=== PATIENT | male | born 1945 | race Caucasian/White ===

== ENCOUNTER 2016-12-04 18:34 | Emergency (ER) | payer MEDICARE ==
[2016-12-04 19:44] LABS: #Basophils 0.1 thou/uL (0.0-0.2); #Eosinphils 0.2 thou/uL (0.0-0.7); #Lymphocytes 1.7 thou/uL (1.20-3.40); #Monocytes 1.2 thou/uL (0.11-0.59); #Neutrophils 13.1 thou/uL (1.40-6.50); %Basophils 0.7 % (0.0-1.0); %Eosinophils 1.4 % (0.0-10.0); %Lymphocytes 10.6 % (21.0-51.0); %Monocytes 7.1 % (0.0-10.0); Hematocrit 45.1 % (42.0-52.0); Mean Platelet Volume 8.5 fL (7.4-10.4); Red Blood Cell (RBC) Count 4.96 mill/uL (4.70-6.10); White Blood Cell (WBC) Count 16.4 thou/uL (4.8-10.8)
[2016-12-04 19:50] LABS: PTT 33.6 SEC (22.9-36.1); Prothrombin Time 21.1 SEC (12.0-14.7)
[2016-12-04] MEDS ORDERED: Ondansetron HCl/PF 4 MG/2 ML Vial ONE (19:55)
[2016-12-04 20:03] LABS: ALT (SGPT) 12 U/L (8-55); AST (SGOT) 16 U/L (5-34); Alkaline Phosphatase 114 U/L (40-150); Anion Gap 16 mmol/L (10-20); BUN (Urea Nitrogen) 28 mg/dL (8.4-25.7); Bilirubin, Total 0.7 mg/dL (0.2-1.2); CK (CPK) 71 U/L (30-200); Calc. Creatinine Clearance 0 mL/min (70-130); Calcium 10.2 mg/dL (7.8-10.44); Carbon Dioxide 23 mmol/L (23-31); Chloride 103 mmol/L (98-107); Estimated GFR-MDRD 73; Globulin 3.3 g/dL (2.4-3.5); Lipase 19 U/L (8-78); Protein, Total 7.9 g/dL (5.8-8.1)
[2016-12-04] MEDS ORDERED: Fentanyl 100 MCG/2 ML VIAL ONE (20:26)
--- NOTE | 2016-12-04 22:53 | RAD ---
EXAM: LEFT RIBS THREE VIEWS ONE VIEW CHEST 12/04/16 HISTORY: Patient fell. Left rib pain. COMPARISON: Chest radiograph 09/04/16. FINDINGS: One view chest: Atherosclerosis of the aorta. Normal cardiac silhouette. Pulmonary vessels and hilum are normal. Cos tophrenic angles are clear. Chronic changes are noted. No masses or consolidation. No pneumothorax. LEFT RIBS: There appear to be indeterminate fractures involving the posterior left third and fifth ribs. There does appear to be an acute fracture involving the anterior and lateral left 10th rib. Pneumothorax i s not appreciated. There is evidence of previous vertebroplasty change in the distal thoracic spine. IMPRESSION: 1. No acute cardiopulmonary process. 2. Indeterminate posterior left third and fifth rib fractures. Acute anterolateral left 10th ri b fracture. POS: [facility]
== END 2016-12-04 22:25 | disposition home or self-care (01) ==
LOC: ERS 18:34
DX: S22.42XA Multiple fractures of ribs, left side, initial encounter for closed fracture (principal); E11.9 Type 2 diabetes mellitus without complications; I49.9 Cardiac arrhythmia, unspecified; I48.91 Unspecified atrial fibrillation; I10 Essential (primary) hypertension; J44.9 Chronic obstructive pulmonary disease, unspecified; F17.210 Nicotine dependence, cigarettes, uncomplicated; Z79.82 Long term (current) use of aspirin; Z79.84 Long term (current) use of oral hypoglycemic drugs; Z79.01 Long term (current) use of anticoagulants; Z79.899 Other long term (current) drug therapy; W19.XXXA Unspecified fall, initial encounter
CPT/HCPCS: 36415; 80053; 82550; 82553; 83690; 83880; 84484; 85025; 85610; 85730; 93005; 94640; 94760; 96374; J2270; J2405; J3010; J7620

== ENCOUNTER 2017-01-23 16:18 | Emergency (ER) | payer MEDICARE ==
[2017-01-23] MEDS ORDERED: Adacel (T-DAP) 0.5 ML VIAL ONE (16:33)
[2017-01-23] MEDS ORDERED: Lidocaine 1% w/Epinephrine 1:200K 30 ML VIAL ONE (16:42)
[2017-01-23 16:59] LABS: #Basophils 0.1 thou/uL (0.0-0.2); #Eosinphils 0.2 thou/uL (0.0-0.7); #Lymphocytes 1.9 thou/uL (1.20-3.40); #Monocytes 0.8 thou/uL (0.11-0.59); #Neutrophils 6.9 thou/uL (1.40-6.50); %Basophils 1.1 % (0.0-1.0); %Eosinophils 2.5 % (0.0-10.0); %Lymphocytes 19.1 % (21.0-51.0); %Monocytes 8.2 % (0.0-10.0); Hematocrit 39.9 % (42.0-52.0); Mean Platelet Volume 7.8 fL (7.4-10.4); Red Blood Cell (RBC) Count 4.31 mill/uL (4.70-6.10)
[2017-01-23 17:06] LABS: PTT 44.7 SEC (22.9-36.1); Prothrombin Time 49.3 SEC (12.0-14.7)
[2017-01-23] MEDS ORDERED: Phytonadione 10 MG/ML AMP PO SCH (17:45)
== END 2017-01-23 18:49 | disposition home or self-care (01) ==
LOC: ERS 16:18
DX: S61.412A Laceration without foreign body of left hand, initial encounter (principal); L08.9 Local infection of the skin and subcutaneous tissue, unspecified; R79.1 Abnormal coagulation profile; I48.91 Unspecified atrial fibrillation; I10 Essential (primary) hypertension; E11.9 Type 2 diabetes mellitus without complications; J44.9 Chronic obstructive pulmonary disease, unspecified; F17.210 Nicotine dependence, cigarettes, uncomplicated; Z79.01 Long term (current) use of anticoagulants; W26.0XXA Contact with knife, initial encounter
CPT/HCPCS: 36415; 85025; 85610; 85730; 90715; J3430

== ENCOUNTER 2017-01-24 12:03 | Inpatient (IN) | payer MEDICARE ==
[2017-01-24] MEDS ORDERED: Ondansetron HCl/PF 4 MG/2 ML Vial ONE (13:07)
[2017-01-24] MEDS ORDERED: Morphine 4 MG/ML VIAL ONE (13:07)
[2017-01-24 13:32] LABS: #Basophils 0.1 thou/uL (0.0-0.2); #Eosinphils 0.2 thou/uL (0.0-0.7); #Lymphocytes 1.8 thou/uL (1.20-3.40); #Neutrophils 11.2 thou/uL (1.40-6.50); %Basophils 0.7 % (0.0-1.0); %Eosinophils 1.5 % (0.0-10.0); %Lymphocytes 12.8 % (21.0-51.0); %Monocytes 7.2 % (0.0-10.0); Hematocrit 44.5 % (42.0-52.0); Mean Platelet Volume 8.3 fL (7.4-10.4); Red Blood Cell (RBC) Count 4.82 mill/uL (4.70-6.10); White Blood Cell (WBC) Count 14.4 thou/uL (4.8-10.8)
[2017-01-24 13:40] LABS: PTT 37.4 SEC (22.9-36.1)
[2017-01-24 13:42] LABS: Prothrombin Time 26.1 SEC (12.0-14.7)
[2017-01-24 13:52] LABS: Lactic Acid - Sepsis 1.7 mmol/L (0.5-2.2)
[2017-01-24 13:54] LABS: ALT (SGPT) 21 U/L (8-55); AST (SGOT) 40 U/L (5-34); Alkaline Phosphatase 100 U/L (40-150); Anion Gap 14 mmol/L (10-20); BUN (Urea Nitrogen) 12 mg/dL (8.4-25.7); Bilirubin, Total 1.2 mg/dL (0.2-1.2); Calc. Creatinine Clearance 0 mL/min (70-130); Calcium 9.8 mg/dL (7.8-10.44); Carbon Dioxide 20 mmol/L (23-31); Chloride 104 mmol/L (98-107); Estimated GFR-MDRD Greater than 90; Globulin 3.1 g/dL (2.4-3.5); Protein, Total 7.4 g/dL (5.8-8.1)
[2017-01-24] MEDS ORDERED: Ketorolac Tromethamine 30 MG/ML VIAL ONE (14:18)
--- NOTE | 2017-01-24 15:36 | HP ---
PRIMARY CARE PHYSICIAN: [facility] call admission. REASON FOR ADMISSION: Left hand cellulitis. HISTORY OF PRESENT ILLNESS: A 71-year-old male who has underlying history of COPD, hypertension, atr ial fibrillation, who came to the emergency room for increasing swelling of left hand. Patient repor ts that on last Wednesday, he had laceration of his left hand from knife that occurred when he was openi ng a can of cone. Subsequently, he was having nonstop bleeding and that is why he came to the emerge ncy room for evaluation and patient was found with a supratherapeutic INR. At that time, his left ahuja nd was completely unremarkable. In the emergency room, patient was given vitamin K and tetanus toxoi d, and patient's laceration was covered with bandage and splint and patient was discharged home on or al antibiotic therapy and pain medication. The patient reports that since then, the patient has incr easing left hand swelling and it is giving throbbing pain. He denies any fever or chills, but he has significant amount of pain and that is why he decided to come to the emergency room for evaluation. The patient also noticed that his left hand swelling is getting more and more worse and now is becom ing more red. He denies any drainage. He denies any bleeding. He denies any fever, chills, nausea, vomiting or diarrhea. He denies any UTI symptoms. He denies any constipation or diarrhea. He brooke es any shortness of breath, cough or hemoptysis. ALLERGIES: No known drug allergies. CURRENT HOME MEDICATIONS: The patient does not have any medication with him at this point, but based on our previous discharge summary, the patient was on following medications: Albuterol inhaler as n eeded basis, aspirin 81 mg p.o. daily, Lipitor 20 mg p.o. at bedtime, Symbicort 2 puff inhalation b.i .d., Glucotrol 5 mg p.o. daily, lisinopril 25 mg p.o. daily, metformin 500 mg p.o. b.i.d., metoprolol 50 mg p.o. b.i.d., multivitamin 1 capsule p.o. daily. Above-mentioned medication is not able to be verified because patient does not have any medication with him. REVIEW OF SYSTEMS: The following complete review of systems was negative, unless otherwise mentioned in the HPI or below: CONSTITUTIONAL: Weight loss or gain, ability to conduct usual activities. SKIN: Rash, itching. EYES: Double vision, pain. ENT/MOUTH: Nose bleeding, neck stiffness, pain, tenderness. CARDIOVASCULAR: Palpitations, dyspnea on exertion, orthopnea. RESPIRATORY: Shortness of breath, wheezing, cough, hemoptysis, fever or night sweats. GASTROINTESTINAL: Poor appetite, abdominal pain, heartburn, nausea, vomiting, constipation, or diarr hea. GENITOURINARY: Urgency, frequency, dysuria, nocturia. MUSCULOSKELETAL: Pain, swelling. NEUROLOGIC/PSYCHIATRIC: Anxiety, depression. ALLERGY/IMMUNOLOGIC: Skin rash, bleeding tendency. Please see my HPI for pertinent positives and negatives. All other review of systems reviewed and ne gative except as mentioned in the HPI. PAST MEDICAL HISTORY: Paroxysmal atrial fibrillation, diabetes type 2, COPD, hypertension, tobacco a buse disorder, coronary artery disease. PAST SURGICAL HISTORY: Left leg surgery for fracture, cardiac catheterization with stent placement i n 1997. PAST PSYCHIATRIC HISTORY: Reviewed and negative. SOCIAL HISTORY: Patient is smoking about 1 pack per day for the last 30 years. He lives alone. He denies any alcohol abuse. He denies any other illicit drug abuse. FAMILY HISTORY: No strong family history of premature coronary artery disease, stroke or cancer. EMERGENCY ROOM COURSE: Patient is given vancomycin, IV fluid, Zofran 4 mg, morphine 4 mg. PHYSICAL EXAMINATION: VITAL SIGNS: On arrival, blood pressure 175/84, pulse 113, respiratory rate 20, temperature 97.5, sa turation 94% on room air. Weight 77 kilograms. GENERAL: Patient is currently alert, awake, tachycardic, hypertensive, in mild distress due to pain. HEAD: Normocephalic, atraumatic. EYES: Pupils round, reactive to light. Extraocular muscle intact. ENT: Oropharynx within normal limits. Moist mucous membranes. No oral lesions. No pharyngeal eryt jim, no exudate. NECK: Supple, no JVD, no thyromegaly, no carotid bruit, no meningeal signs of irritation. LUNGS: No end-expiratory wheezing, no rhonchi, no rales. No accessory muscles of respiration in use . Pursed lip breathing noted. CARDIAC: S1, S2 regular, tachycardia, no murmur, no gallop, no rub. ABDOMEN: Soft, bowel sounds present, nontender, nondistended. No organomegaly, no mass, no suprapub ic tenderness. BACK: Unremarkable, no CVA tenderness. EXTREMITIES: Upper extremity: Left hand is swollen, erythematous, and significantly tender. Patien t has puncture wound in thenar eminence. Patient also has swelling of the distal half of the forearm and tenderness to palpation. Range of motion is limited because of tenderness. Pulsation and capil yojana filling is normal. Lower extremity, no edema. Good peripheral pulsation. SKIN: No skin rash. HEMATOLOGICAL: No lymphadenopathy. PSYCHIATRIC: Normal affect. SIGNIFICANT LABS: 1. CBC: WBC 14.4, hemoglobin 15.0 and platelets 171. INR 2.3. BMP: Sodium 134, potassium 4.0, ch loride 104, carbon dioxide 20, BUN 12, creatinine 0.77, glucose 91, calcium 9.8. 2. LFT: AST 40, ALT 21, alkaline phosphatase 100, CRP less than 0.50, albumin 4.3. ASSESSMENT AND PLAN/IMPRESSION: 1. Acute left hand cellulitis after knife injury. The patient is already given tetanus toxoid a cou ple of days ago in the emergency room. At this point, the patient has leukocytosis and a significant inflammatory response. Clinically, this patient has cellulitis. Patient is getting worse even with outpatient treatment and patient will require admission. We will consult hand surgeon for evaluatio n. We will do hand x-ray to rule out any foreign body. We will continue with vancomycin and Zosyn w hile in hospital and control his pain with morphine p.r.n. basis and Toradol p.r.n. basis. We will m onitor clinical response. 2. Diabetes type 2. We will continue with insulin as per sliding scale protocol. Diabetic diet vera l be given. We will also continue patient's home medication of glipizide and metformin after verific ation of dose. 3. Chronic obstructive pulmonary disease. We will continue with Dulera 2 puffs inhalation b.i.d. al nancy with DuoNeb q.6 hourly p.r.n. 4. Tobacco abuse disorder. Smoking cessation counseling given. We will provide nicotine patch whil e in hospital if needed. 5. Hypertension. We will continue with lisinopril 10 mg p.o. daily and metoprolol 25 mg twice daily . 6. Dyslipidemia. We will continue with Lipitor 20 mg p.o. at bedtime after a dose verification. 7. Deep venous thrombosis prophylaxis, not needed because the patient is already on chronic anticoag ulation therapy. 8. Chronic anticoagulation. The patient has supratherapeutic INR a couple of days ago. Now, INR is 2.3. We will verify the patient's medication and then resume therapy while in hospital and we will monitor INR on daily basis. 9. Gastrointestinal prophylaxis, Pepcid 20 mg p.o. b.i.d. 10. CODE STATUS: The patient is FULL CODE. Patient does not have any surrogate decision maker. Disposition plan based on clinical course. We are expecting patient's stay in hospital more than 2 m idnights. Plan of care discussed with the patient in detail.
[2017-01-24] MEDS ORDERED: Diabetic Tussin 200 MG/10 ML UDCUP PO PRN (16:40)
[2017-01-24] MEDS ORDERED: cloNIDine 0.1 MG TAB PO PRN (16:40)
[2017-01-24] MEDS ORDERED: Nitroglycerin 0.4 MG TAB (25 Tab Bottle) SL PRN (16:40)
[2017-01-24] MEDS ORDERED: Morphine 4 MG/ML VIAL SLOW IVP PRN (16:40)
[2017-01-24] MEDS ORDERED: Mag-Al 1200 mg/1200 mg/30 ML UDCUP PO PRN (16:40)
[2017-01-24] MEDS ORDERED: Ketorolac Tromethamine 30 MG/ML VIAL IVP PRN (16:40)
[2017-01-24] MEDS ORDERED: Acetaminophen 325 MG TAB PO PRN (16:40)
[2017-01-24] MEDS ORDERED: Dextrose 50% Abboject 50 ML SYRINGE SLOW IVP PRN (16:40)
[2017-01-24] MEDS ORDERED: Loratadine 10 MG TAB PO PRN (16:40)
[2017-01-24] MEDS ORDERED: Ondansetron HCl/PF 4 MG/2 ML Vial IVP PRN (16:40)
[2017-01-24] MEDS ORDERED: Zolpidem Tartrate 5 MG TAB PO PRN (16:40)
[2017-01-24] MEDS ORDERED: HumaLOG 300 UNITS/3 ML VIAL SC PRN (16:40)
[2017-01-24] MEDS ORDERED: Milk Of Magnesia 30 ML UDCUP PO PRN (16:40)
[2017-01-24] MEDS ORDERED: Chloraseptic Spray 180 ml Bottle PO PRN (16:40)
[2017-01-24] MEDS ORDERED: Eucerin (Mineral Oil/Petrolatum,White) 30 gm Jar TOP PRN (16:40)
[2017-01-24] MEDS ORDERED: Ondansetron ODT 4 MG TAB PO PRN (16:40)
[2017-01-24] MEDS ORDERED: Loperamide HCl 2 MG CAP PO PRN (16:40)
[2017-01-24] MEDS ORDERED: hydrALAZINE 20 MG/ML VIAL SLOW IVP PRN (16:40)
[2017-01-24] MEDS ORDERED: Sodium Chloride 0.65% Nasal 44 ML BOT EA NARE PRN (16:40)
[2017-01-24] MEDS ORDERED: Artificial Tears 18 DROP/0.9 ML EA EYE PRN (16:40)
[2017-01-24] MEDS ORDERED: Benzonatate 100 MG CAP PO PRN (16:40)
[2017-01-24] MEDS ORDERED: Dextrose 5% in Water 1,000 ML IV PRN (16:40)
[2017-01-24] MEDS ORDERED: Senokot 8.6 MG TAB PO PRN (16:40)
[2017-01-24 16:42] VITALS: BMI 25.8
[2017-01-24] MEDS: HYDROcodone/Acetaminophen 10/325 mg Tablet PO PRN ×2 (17:00→21:01)
--- NOTE | 2017-01-24 17:14 | RAD ---
LEFT HAND 3 VIEWS: Date: 01/24/17 HISTORY: Left hand cellulitis. COMPARISON: None. FINDINGS: There is subcutaneous gas in the thenar soft tissues between the thumb and index finger. No acute fra cture. No periostitis or erosions. IMPRESSION: Soft tissue gas concerning for high grade infectious process. Although there are no radiographic find ings of osteomyelitis yet seen, MRI may be helpful in this patient. POS: [facility]
[2017-01-24] MEDS ORDERED: FLU VACC TS2017-18 (>65YR) 0.5 ML SYRINGE IM ONE (17:15)
[2017-01-24] MEDS: Piperacillin/Tazobactam 3.375 GM, Admixture Fee 1 EACH in Sodium Chloride 0.9% 100 ML IVPB SCH ×2 (18:20→23:16)
[2017-01-24] MEDS: Mometasone/Formoterol 120 PUFF INHALER INH SCH (18:59)
[2017-01-24] MEDS: Famotidine 20 MG TAB PO SCH (21:02)
[2017-01-24] MEDS: Atorvastatin Calcium 20 MG TAB PO SCH (21:02)
[2017-01-24] MEDS: Metoprolol Tartrate 25 MG TAB PO SCH (21:02)
[2017-01-25] MEDS: Vancomycin HCl 1 GM in Premix Bag 1 BAG IVPB SCH ×2 (01:55→14:17)
[2017-01-25] MEDS: HYDROcodone/Acetaminophen 10/325 mg Tablet PO PRN ×3 (02:00→20:34)
[2017-01-25 04:28] LABS: #Basophils 0.1 thou/uL (0.0-0.2); #Eosinphils 0.2 thou/uL (0.0-0.7); #Lymphocytes 1.9 thou/uL (1.20-3.40); #Monocytes 0.9 thou/uL (0.11-0.59); #Neutrophils 7.3 thou/uL (1.40-6.50); %Basophils 0.9 % (0.0-1.0); %Eosinophils 2.1 % (0.0-10.0); %Lymphocytes 18.5 % (21.0-51.0); %Monocytes 8.3 % (0.0-10.0); Hematocrit 36.4 % (42.0-52.0); Red Blood Cell (RBC) Count 3.88 mill/uL (4.70-6.10); White Blood Cell (WBC) Count 10.3 thou/uL (4.8-10.8)
[2017-01-25 04:46] LABS: ALT (SGPT) 15 U/L (8-55); AST (SGOT) 27 U/L (5-34); Alkaline Phosphatase 73 U/L (40-150); Anion Gap 10 mmol/L (10-20); BUN (Urea Nitrogen) 15 mg/dL (8.4-25.7); Calc. Creatinine Clearance 75 mL/min (70-130); Calcium 8.8 mg/dL (7.8-10.44); Carbon Dioxide 25 mmol/L (23-31); Chloride 104 mmol/L (98-107); Estimated GFR-MDRD 78; Globulin 2.2 g/dL (2.4-3.5); Protein, Total 5.7 g/dL (5.8-8.1)
[2017-01-25] MEDS: Piperacillin/Tazobactam 3.375 GM, Admixture Fee 1 EACH in Sodium Chloride 0.9% 100 ML IVPB SCH ×3 (05:16→17:51)
[2017-01-25] MEDS: Mometasone/Formoterol 120 PUFF INHALER INH SCH ×2 (06:35→19:28)
[2017-01-25] MEDS: Lisinopril 10 MG TAB PO SCH (08:32)
[2017-01-25] MEDS: Famotidine 20 MG TAB PO SCH ×2 (08:33→20:34)
[2017-01-25] MEDS: Metoprolol Tartrate 25 MG TAB PO SCH ×2 (08:33→20:34)
--- NOTE | 2017-01-25 10:34 | PDOC.PN ---
- Subjective Encounter Start Date: 01/25/17 Encounter Start Time: 09:45 -: old records requested/rev Patient seen and examined. No new complaints. No overnight events, has left hand and left UE pain, no fever - Objective Resuscitation Status: Resuscitation Status FULL:Full Resuscitation MAR Reviewed: Yes Vital Signs & Weight: Vital Signs (12 hours) Temp Pulse Resp BP BP Pulse Ox 01/25/17 08:55 97.5 F L 83 20 129/80 90 L 01/25/17 08:32 129/80 01/25/17 06:38 94 L 01/25/17 06:36 66 16 94 L 01/25/17 05:24 97.6 F 73 20 139/76 94 L 01/25/17 00:00 98.1 F 01/24/17 23:32 71 16 93 L I&O: 01/24/17 01/25/17 01/26/17 06:59 06:59 06:59 Intake Total 100 180 Balance 100 180 Result Diagrams: 01/25/17 03:49 01/25/17 03:49 Additional Labs: Accuchecks 01/25/17 01/24/17 05:18 16:37 POC Glucose 137 H 105 Radiology Reviewed by me: Yes (Xray hand noted) Phys Exam - Physical Examination Constitutional: NAD HEENT: PERRLA, moist MMs, sclera anicteric Neck: no JVD, supple Respiratory: no rales, wheezing present Cardiovascular: RRR, no significant murmur, no rub Gastrointestinal: soft, non-tender, no distention, positive bowel sounds Musculoskeletal: no edema, pulses present left UE swelling , more on hand Neurological: non-focal, normal sensation Lymphatic: no nodes Psychiatric: normal affect, A&O x 3 Skin: no rash, normal turgor Dx/Plan (1) Cellulitis of hand, left Code(s): L03.114 - CELLULITIS OF LEFT UPPER LIMB Status: Acute (2) Sepsis Code(s): A41.9 - SEPSIS, UNSPECIFIED ORGANISM Status: Acute (3) Atrial fibrillation Code(s): I48.91 - UNSPECIFIED ATRIAL FIBRILLATION Status: Chronic Qualifiers: Atrial fibrillation type: paroxysmal Qualified Code(s): I48.0 - Paroxysmal atrial fibrillation Comment: (4) COPD (chronic obstructive pulmonary disease) Status: Chronic Comment: (5) Chronic anticoagulation Code(s): Z79.01 - [employer]OR [employer] (CURRENT) USE OF ANTICOAGULANTS Status: Chronic (6) Diabetes type 2, controlled Code(s): E11.9 - TYPE 2 DIABETES MELLITUS WITHOUT COMPLICATIONS Status: Chronic (7) Dyslipidemia Code(s): E78.5 - HYPERLIPIDEMIA, UNSPECIFIED Status: Chronic (8) Hypertension Code(s): I10 - ESSENTIAL (PRIMARY) HYPERTENSION Status: Chronic (9) Tobacco abuse Code(s): Z72.0 - TOBACCO USE Status: Chronic - Plan cont current plan of care, continue antibiotics * continue vancomycin and zosyn * will get MRI left UE * consult hand surgeon * continue pain control * medication reviewed as below * symptomatic treatment * continue home medication as below. Review of Systems - Review of Systems Eyes: negative: Pain, Vision Change, Conjunctivae Inflammation, Eyelid Inflammation, Redness, Other ENT: negative: Ear Pain, Ear Discharge, Nose Pain, Nose Discharge, Nose Congestion, Mouth Pain, Mouth Swelling, Throat Pain, Throat Swelling, Other Respiratory: negative: Cough, Dry, Shortness of Breath, Hemoptysis, SOB with Excertion, Pleuritic Pain, Sputum, Wheezing Cardiovascular: negative: Chest Pain, Palpitations, Orthopnea, Paroxysmal Noc. Dyspnea, Edema, Light Headedness, Other Gastrointestinal: negative: Nausea, Vomiting, Abdominal Pain, Diarrhea, Constipation, Melena, Hematochezia, Other Genitourinary: negative: Dysuria, Frequency, Incontinence, Hematuria, Retention , Other Musculoskeletal: Arm Pain, Hand Pain. negative: Neck Pain, Shoulder Pain, Back Pain, Leg Pain, Foot Pain, Other - Medications/Allergies Allergies/Adverse Reactions: Allergies Allergy/AdvReac Type Severity Reaction Status Date / Time No Known Drug Allergies Allergy Verified 01/24/17 16:54 Medications: Current Medications Acetaminophen (Tylenol) 650 mg PO Q4H PRN PRN Reason: Headache/Fever or Pain Hydrocodone Bitart/Acetaminophen ([place] 10/325) 1 tab PO Q4H PRN PRN Reason: Moderate Pain (4-6) Last Admin: 01/25/17 02:00 Dose: 1 tab Al Hydroxide/Mg Hydroxide (Maalox) 30 ml PO Q6H PRN PRN Reason: Heartburn or Indigestion Albuterol/Ipratropium (Duoneb) 3 ml NEB [id number] JOSEPHINE Last Admin: 01/25/17 06:36 Dose: 3 ml Artificial Tears (Tears Naturale) 0 drop EA EYE PRN PRN PRN Reason: Dry Eyes Aspirin (Aspirin Chewable) 81 mg PO DAILY [facility] Last Admin: 01/25/17 08:33 Dose: 81 mg Atorvastatin Calcium (Lipitor) 20 mg PO HS [facility] Last Admin: 01/24/17 21:02 Dose: 20 mg Benzonatate (Tessalon) 100 mg PO Q4H PRN PRN Reason: Cough Clonidine (Catapres) 0.1 mg PO Q4H PRN PRN Reason: Systolic BP > 180 Dextrose/Water (Dextrose 50%) 25 gm SLOW IVP PRN PRN PRN Reason: Hypoglycemia Famotidine (Pepcid) 20 mg PO BID [facility] Last Admin: 01/25/17 08:33 Dose: 20 mg Glucagon (Glucagon) 1 mg IM PRN PRN PRN Reason: Hypoglycemia Guaifenesin (Robitussin Sf) 200 mg PO Q4H PRN PRN Reason: Cough Hydralazine HCl (Apresoline) 10 mg SLOW IVP Q4H PRN PRN Reason: Systolic BP > 180 Dextrose/Water (D5w) 1,000 mls @ 0 mls/hr IV .Q0M PRN; As Directed PRN Reason: Hypoglycemia Piperacillin Sod/Tazobactam Sod 3.375 gm/ Miscellaneous Medication 1 each/ Sodium Chloride 100 mls @ 200 mls/hr IVPB Q6HR [facility] Last Admin: 01/25/17 05:16 Dose: 100 mls Vancomycin HCl 1 gm/ Device 200 mls @ 200 mls/hr IVPB 0200,1400 [facility] Last Admin: 01/25/17 01:55 Dose: 200 mls Insulin Human Lispro (Humalog) 0 units SC .MODERATE SLIDING SC PRN PRN Reason: Moderate Correctional Scale Insulin Human Lispro (Humalog) 0 units SC .BEDTIME SLIDING SC PRN PRN Reason: Bedtime Correctional Scale Ketorolac Tromethamine (Toradol) 15 mg IVP Q6H PRN PRN Reason: Pain Stop: 01/29/17 16:41 Lisinopril (Zestril) 10 mg PO DAILY [facility] Last Admin: 01/25/17 08:32 Dose: 10 mg Loperamide HCl (Imodium) 2 mg PO PRN PRN PRN Reason: Diarrhea/Loose Stools Loratadine (Claritin) 10 mg PO DAILYPRN PRN PRN Reason: Sinus Symptoms Magnesium Hydroxide (Milk Of Magnesium) 30 ml PO DAILYPRN PRN PRN Reason: Constipation Metoprolol Tartrate (Lopressor) 25 mg PO BID [facility] Last Admin: 01/25/17 08:33 Dose: 25 mg Mineral Oil/White Petrolatum (Eucerin Cream) 0 gm TOP BIDPRN PRN PRN Reason: Dry Skin Miscellaneous Medication (Pharmacy To Dose) 1 each IVPB PRN PRN PRN Reason: Pharmacy to dose Mometasone Furoate/Formoterol Fumar (Dulera 200 Mcg/5 Mcg Inhaler) 2 puff INH BID-RT [facility] Last Admin: 01/25/17 06:35 Dose: 2 puff Morphine Sulfate (Morphine) 4 mg SLOW IVP Q4H PRN PRN Reason: Pain Nitroglycerin (Nitrostat) 0.4 mg SL Q5MIN PRN PRN Reason: Chest Pain Ondansetron HCl (Zofran Odt) 4 mg PO Q6H PRN PRN Reason: Nausea/Vomiting Ondansetron HCl (Zofran) 4 mg IVP Q6H PRN PRN Reason: Nausea/Vomiting Phenol (Chloraseptic [place] 180 Ml Bot) 0 ml PO PRN PRN PRN Reason: Sore Throat Senna (Senokot) 2 tab PO HSPRN PRN PRN Reason: Constipation Sodium Chloride ([place] Nasal [place] 0.65%) 0 ml EA NARE QIDPRN PRN PRN Reason: Nasal Congestion Zolpidem Tartrate (Ambien) 5 mg PO HSPRN PRN PRN Reason: Insomnia
[2017-01-25] MEDS: HumaLOG 300 UNITS/3 ML VIAL SC PRN ×2 (13:15→17:52)
[2017-01-25] MEDS: Atorvastatin Calcium 20 MG TAB PO SCH (20:34)
[2017-01-26] MEDS: Piperacillin/Tazobactam 3.375 GM, Admixture Fee 1 EACH in Sodium Chloride 0.9% 100 ML IVPB SCH ×4 (00:32→17:46)
[2017-01-26 01:15] LABS: Vancomycin, Trough 15.5 ug/mL
[2017-01-26] MEDS: Vancomycin HCl 1 GM in Premix Bag 1 BAG IVPB SCH ×2 (01:30→15:59)
[2017-01-26 03:16] LABS: PTT 36.9 SEC (22.9-36.1); Prothrombin Time 23.6 SEC (12.0-14.7)
[2017-01-26] MEDS: Mometasone/Formoterol 120 PUFF INHALER INH SCH ×2 (06:46→20:13)
[2017-01-26] MEDS: Famotidine 20 MG TAB PO SCH ×2 (09:20→20:10)
[2017-01-26] MEDS: Metoprolol Tartrate 25 MG TAB PO SCH ×2 (09:20→20:10)
[2017-01-26] MEDS: Lisinopril 10 MG TAB PO SCH (09:20)
--- NOTE | 2017-01-26 12:56 | PDOC.PN ---
- Subjective Encounter Start Date: 01/26/17 Encounter Start Time: 09:00 Patient seen and examined. No new complaints. No overnight events - Objective Resuscitation Status: Resuscitation Status FULL:Full Resuscitation MAR Reviewed: Yes Vital Signs & Weight: Vital Signs (12 hours) Temp Pulse Resp BP BP Pulse Ox 01/26/17 09:20 150/74 H 01/26/17 08:00 98.2 F 90 20 150/74 H 91 L 01/26/17 06:49 90 L 01/26/17 06:46 92 18 90 L 01/26/17 05:48 98.2 F 87 18 156/79 H 93 L 01/26/17 04:08 95 01/26/17 01:15 87 18 88 L Weight Admit Weight 169 lb 12.08 oz Weight 169 lb 12.08 oz I&O: 01/25/17 01/26/17 01/27/17 06:59 06:59 06:59 Intake Total 100 660 Balance 100 660 Result Diagrams: 01/25/17 03:49 01/25/17 03:49 Additional Labs: Accuchecks 01/26/17 01/25/17 01/25/17 05:15 20:19 16:33 POC Glucose 153 H 172 H 184 H Phys Exam - Physical Examination Constitutional: NAD HEENT: PERRLA, moist MMs, sclera anicteric Neck: no JVD, supple Respiratory: no wheezing, no rales, no rhonchi Cardiovascular: RRR, no significant murmur, no rub Gastrointestinal: soft, non-tender, no distention, positive bowel sounds Musculoskeletal: no edema, pulses present Neurological: non-focal, normal sensation Lymphatic: no nodes Psychiatric: normal affect, A&O x 3 Skin: no rash, normal turgor Dx/Plan (1) Cellulitis of hand, left Code(s): L03.114 - CELLULITIS OF LEFT UPPER LIMB Status: Acute (2) Sepsis Code(s): A41.9 - SEPSIS, UNSPECIFIED ORGANISM Status: Acute (3) Atrial fibrillation Code(s): I48.91 - UNSPECIFIED ATRIAL FIBRILLATION Status: Chronic Qualifiers: Atrial fibrillation type: paroxysmal Qualified Code(s): I48.0 - Paroxysmal atrial fibrillation Comment: (4) COPD (chronic obstructive pulmonary disease) Status: Chronic Comment: (5) Chronic anticoagulation Code(s): Z79.01 - MCC (CURRENT) USE OF ANTICOAGULANTS Status: Chronic (6) Diabetes type 2, controlled Code(s): E11.9 - TYPE 2 DIABETES MELLITUS WITHOUT COMPLICATIONS Status: Chronic (7) Dyslipidemia Code(s): E78.5 - HYPERLIPIDEMIA, UNSPECIFIED Status: Chronic (8) Hypertension Code(s): I10 - ESSENTIAL (PRIMARY) HYPERTENSION Status: Chronic (9) Tobacco abuse Code(s): Z72.0 - TOBACCO USE Status: Chronic - Plan cont current plan of care, continue antibiotics * continue vancomycin and zosyn * today plan for I & d * medication reviewed as below * symptomatic treatment. Review of Systems - Review of Systems ENT: negative: Ear Pain, Ear Discharge, Nose Pain, Nose Discharge, Nose Congestion, Mouth Pain, Mouth Swelling, Throat Pain, Throat Swelling, Other Respiratory: negative: Cough, Dry, Shortness of Breath, Hemoptysis, SOB with Excertion, Pleuritic Pain, Sputum, Wheezing Cardiovascular: negative: Chest Pain, Palpitations, Orthopnea, Paroxysmal Noc. Dyspnea, Edema, Light Headedness, Other Gastrointestinal: negative: Nausea, Vomiting, Abdominal Pain, Diarrhea, Constipation, Melena, Hematochezia, Other Genitourinary: negative: Dysuria, Frequency, Incontinence, Hematuria, Retention , Other Musculoskeletal: negative: Neck Pain, Shoulder Pain, Arm Pain, Back Pain, Hand Pain, Leg Pain, Foot Pain, Other - Medications/Allergies Allergies/Adverse Reactions: Allergies Allergy/AdvReac Type Severity Reaction Status Date / Time No Known Drug Allergies Allergy Verified 01/24/17 16:54 Medications: Current Medications Acetaminophen (Tylenol) 650 mg PO Q4H PRN PRN Reason: Headache/Fever or Pain Hydrocodone Bitart/Acetaminophen ([place] 10/325) 1 tab PO Q4H PRN PRN Reason: Moderate Pain (4-6) Last Admin: 01/25/17 20:34 Dose: 1 tab Al Hydroxide/Mg Hydroxide (Maalox) 30 ml PO Q6H PRN PRN Reason: Heartburn or Indigestion Albuterol/Ipratropium (Duoneb) 3 ml NEB [id number] JO[facility] Last Admin: 01/26/17 06:46 Dose: 3 ml Artificial Tears (Tears Naturale) 0 drop EA EYE PRN PRN PRN Reason: Dry Eyes Aspirin (Aspirin Chewable) 81 mg PO DAILY [facility] Last Admin: 01/26/17 09:18 Dose: Not Given Atorvastatin Calcium (Lipitor) 20 mg PO HS [facility] Last Admin: 01/25/17 20:34 Dose: 20 mg Benzonatate (Tessalon) 100 mg PO Q4H PRN PRN Reason: Cough Clonidine (Catapres) 0.1 mg PO Q4H PRN PRN Reason: Systolic BP > 180 Dextrose/Water (Dextrose 50%) 25 gm SLOW IVP PRN PRN PRN Reason: Hypoglycemia Famotidine (Pepcid) 20 mg PO BID [facility] Last Admin: 01/26/17 09:20 Dose: 20 mg Glucagon (Glucagon) 1 mg IM PRN PRN PRN Reason: Hypoglycemia Guaifenesin (Robitussin Sf) 200 mg PO Q4H PRN PRN Reason: Cough Hydralazine HCl (Apresoline) 10 mg SLOW IVP Q4H PRN PRN Reason: Systolic BP > 180 Dextrose/Water (D5w) 1,000 mls @ 0 mls/hr IV .Q0M PRN; As Directed PRN Reason: Hypoglycemia Piperacillin Sod/Tazobactam Sod 3.375 gm/ Miscellaneous Medication 1 each/ Sodium Chloride 100 mls @ 200 mls/hr IVPB Q6HR [facility] Last Admin: 01/26/17 05:16 Dose: 100 mls Vancomycin HCl 1 gm/ Device 200 mls @ 200 mls/hr IVPB 0200,1400 [facility] Last Admin: 01/26/17 01:30 Dose: 200 mls Insulin Human Lispro (Humalog) 0 units SC .MODERATE SLIDING SC PRN PRN Reason: Moderate Correctional Scale Last Admin: 01/25/17 17:52 Dose: 2 unit Insulin Human Lispro (Humalog) 0 units SC .BEDTIME SLIDING SC PRN PRN Reason: Bedtime Correctional Scale Ketorolac Tromethamine (Toradol) 15 mg IVP Q6H PRN PRN Reason: Pain Stop: 01/29/17 16:41 Lisinopril (Zestril) 10 mg PO DAILY [facility] Last Admin: 01/26/17 09:20 Dose: 10 mg Loperamide HCl (Imodium) 2 mg PO PRN PRN PRN Reason: Diarrhea/Loose Stools Loratadine (Claritin) 10 mg PO DAILYPRN PRN PRN Reason: Sinus Symptoms Magnesium Hydroxide (Milk Of Magnesium) 30 ml PO DAILYPRN PRN PRN Reason: Constipation Metoprolol Tartrate (Lopressor) 25 mg PO BID [facility] Last Admin: 01/26/17 09:20 Dose: 25 mg Mineral Oil/White Petrolatum (Eucerin Cream) 0 gm TOP BIDPRN PRN PRN Reason: Dry Skin Miscellaneous Medication (Pharmacy To Dose) 1 each IVPB PRN PRN PRN Reason: Pharmacy to dose Mometasone Furoate/Formoterol Fumar (Dulera 200 Mcg/5 Mcg Inhaler) 2 puff INH BID-RT [facility] Last Admin: 01/26/17 06:46 Dose: 2 puff Morphine Sulfate (Morphine) 4 mg SLOW IVP Q4H PRN PRN Reason: Pain Nitroglycerin (Nitrostat) 0.4 mg SL Q5MIN PRN PRN Reason: Chest Pain Ondansetron HCl (Zofran Odt) 4 mg PO Q6H PRN PRN Reason: Nausea/Vomiting Ondansetron HCl (Zofran) 4 mg IVP Q6H PRN PRN Reason: Nausea/Vomiting Phenol (Chloraseptic [place] 180 Ml Bot) 0 ml PO PRN PRN PRN Reason: Sore Throat Senna (Senokot) 2 tab PO HSPRN PRN PRN Reason: Constipation Sodium Chloride ([place] Nasal [place] 0.65%) 0 ml EA NARE QIDPRN PRN PRN Reason: Nasal Congestion Sodium Chloride (Flush - Normal Saline) 10 ml IVF PRN PRN PRN Reason: Saline Flush Zolpidem Tartrate (Ambien) 5 mg PO HSPRN PRN PRN Reason: Insomnia
[2017-01-26] MEDS ORDERED: Midazolam HCl 2 mg/2 ml Vial ONE (13:23)
[2017-01-26] MEDS ORDERED: Fentanyl 100 MCG/2 ML VIAL ONE (13:23)
[2017-01-26] MEDS ORDERED: Bacitracin Zinc Ointment 30 gm TUBE ONE (13:25)
[2017-01-26] MEDS ORDERED: Sodium Chloride 0.9% 20 ML ONE (13:25)
[2017-01-26] MEDS ORDERED: Lidocaine 1% (PF) 30 ML VIAL ONE (13:34)
[2017-01-26] MEDS ORDERED: Bupivacaine/Epinephrine 0.25% 30 ML VIAL ONE (13:34)
[2017-01-26] MEDS ORDERED: Thrombin 5000 UNITS/5 ML VIAL ONE (13:34)
[2017-01-26] MEDS ORDERED: Propofol 200 MG/20 ML VIAL ONE (14:05)
[2017-01-26] MEDS ORDERED: ePHEDrine/0.9% NaCl/PF SYRINGE 50 mg/10 ml ONE (14:05)
[2017-01-26] MEDS ORDERED: Lidocaine 1% PF 5 ML VIAL ONE (14:05)
[2017-01-26] MEDS ORDERED: PHENYLEPHRINE-NS 100 MCG/ML 10 ML SYRINGE ONE (14:05)
[2017-01-26] MEDS ORDERED: Promethazine HCl 25 MG/ML VIAL IM PRN (15:17)
[2017-01-26] MEDS ORDERED: Promethazine HCl 25 MG/ML VIAL SLOW IVP PRN (15:17)
[2017-01-26] MEDS ORDERED: Ondansetron HCl/PF 4 MG/2 ML Vial IVP PRN (15:17)
[2017-01-26] MEDS: Atorvastatin Calcium 20 MG TAB PO SCH (20:10)
[2017-01-27] MEDS: Piperacillin/Tazobactam 3.375 GM, Admixture Fee 1 EACH in Sodium Chloride 0.9% 100 ML IVPB SCH ×5 (00:02→23:26)
[2017-01-27] MEDS: Vancomycin HCl 1 GM in Premix Bag 1 BAG IVPB SCH ×3 (03:48→14:45)
[2017-01-27] MEDS: Mometasone/Formoterol 120 PUFF INHALER INH SCH ×2 (07:06→19:05)
[2017-01-27] MEDS: Famotidine 20 MG TAB PO SCH ×2 (07:50→20:42)
[2017-01-27] MEDS: Lisinopril 10 MG TAB PO SCH (07:50)
[2017-01-27] MEDS: Metoprolol Tartrate 25 MG TAB PO SCH ×2 (07:51→20:42)
--- NOTE | 2017-01-27 12:31 | PDOC.PN ---
- Subjective Encounter Start Date: 01/27/17 Encounter Start Time: 09:40 Patient seen and examined. No new complaints. No overnight events - Objective Resuscitation Status: Resuscitation Status FULL:Full Resuscitation MAR Reviewed: Yes Vital Signs & Weight: Vital Signs (12 hours) Temp Pulse Resp BP BP Pulse Ox 01/27/17 07:58 97.9 F 80 20 136/73 93 L 01/27/17 07:50 136/73 01/27/17 07:07 90 14 01/27/17 07:06 97.8 F 73 18 01/27/17 03:23 91 L 01/27/17 01:45 73 18 91 L Weight Admit Weight 169 lb 12.08 oz Weight 169 lb 12.08 oz I&O: 01/26/17 01/27/17 01/28/17 06:59 06:59 06:59 Intake Total 660 780 Balance 660 780 Result Diagrams: 01/25/17 03:49 01/25/17 03:49 Additional Labs: Accuchecks 01/27/17 01/27/17 01/26/17 11:27 05:05 20:12 POC Glucose 152 H 186 H 198 H 01/26/17 17:02 POC Glucose 123 H Phys Exam - Physical Examination Constitutional: NAD HEENT: PERRLA, moist MMs, sclera anicteric Neck: no JVD, supple Respiratory: no wheezing, no rales, no rhonchi Cardiovascular: RRR, no significant murmur, no rub Gastrointestinal: soft, non-tender, no distention, positive bowel sounds Musculoskeletal: no edema, pulses present left hand with dressing Neurological: non-focal, normal sensation, moves all 4 limbs Psychiatric: normal affect, A&O x 3 Skin: no rash, normal turgor Dx/Plan (1) Cellulitis of hand, left Code(s): L03.114 - CELLULITIS OF LEFT UPPER LIMB Status: Acute (2) Sepsis Code(s): A41.9 - SEPSIS, UNSPECIFIED ORGANISM Status: Acute (3) Atrial fibrillation Code(s): I48.91 - UNSPECIFIED ATRIAL FIBRILLATION Status: Chronic Qualifiers: Atrial fibrillation type: paroxysmal Qualified Code(s): I48.0 - Paroxysmal atrial fibrillation Comment: (4) COPD (chronic obstructive pulmonary disease) Status: Chronic Comment: (5) Chronic anticoagulation Code(s): Z79.01 - 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 Review of Systems - Review of Systems Constitutional: negative: Fever, Chills, Sweats, Weakness, Malaise, Other ENT: negative: Ear Pain, Ear Discharge, Nose Pain, Nose Discharge, Nose Congestion, Mouth Pain, Mouth Swelling, Throat Pain, Throat Swelling, Other Respiratory: negative: Cough, Dry, Shortness of Breath, Hemoptysis, SOB with Excertion, Pleuritic Pain, Sputum, Wheezing Cardiovascular: negative: Chest Pain, Palpitations, Orthopnea, Paroxysmal Noc. Dyspnea, Edema, Light Headedness, Other Gastrointestinal: negative: Nausea, Vomiting, Abdominal Pain, Diarrhea, Constipation, Melena, Hematochezia, Other Genitourinary: negative: Dysuria, Frequency, Incontinence, Hematuria, Retention , Other Musculoskeletal: negative: Neck Pain, Shoulder Pain, Arm Pain, Back Pain, Hand Pain, Leg Pain, Foot Pain, Other Skin: negative: Rash, Lesions, Roberto Carlos, Bruising, Other - Medications/Allergies Allergies/Adverse Reactions: Allergies Allergy/AdvReac Type Severity Reaction Status Date / Time No Known Drug Allergies Allergy Verified 01/24/17 16:54 Medications: Current Medications Acetaminophen (Tylenol) 650 mg PO Q4H PRN PRN Reason: Headache/Fever or Pain Hydrocodone Bitart/Acetaminophen ([place] 10/325) 1 tab PO Q4H PRN PRN Reason: Moderate Pain (4-6) Last Admin: 01/25/17 20:34 Dose: 1 tab Al Hydroxide/Mg Hydroxide (Maalox) 30 ml PO Q6H PRN PRN Reason: Heartburn or Indigestion Albuterol/Ipratropium (Duoneb) 3 ml NEB [id number] JOSEPHINE Last Admin: 01/27/17 07:07 Dose: 3 ml Artificial Tears (Tears Naturale) 0 drop EA EYE PRN PRN PRN Reason: Dry Eyes Aspirin (Aspirin Chewable) 81 mg PO DAILY [facility] Last Admin: 01/27/17 07:51 Dose: 81 mg Atorvastatin Calcium (Lipitor) 20 mg PO HS [facility] Last Admin: 01/26/17 20:10 Dose: 20 mg Benzonatate (Tessalon) 100 mg PO Q4H PRN PRN Reason: Cough Clonidine (Catapres) 0.1 mg PO Q4H PRN PRN Reason: Systolic BP > 180 Dextrose/Water (Dextrose 50%) 25 gm SLOW IVP PRN PRN PRN Reason: Hypoglycemia Famotidine (Pepcid) 20 mg PO BID [facility] Last Admin: 01/27/17 07:50 Dose: 20 mg Glucagon (Glucagon) 1 mg IM PRN PRN PRN Reason: Hypoglycemia Guaifenesin (Robitussin Sf) 200 mg PO Q4H PRN PRN Reason: Cough Hydralazine HCl (Apresoline) 10 mg SLOW IVP Q4H PRN PRN Reason: Systolic BP > 180 Dextrose/Water (D5w) 1,000 mls @ 0 mls/hr IV .Q0M PRN; As Directed PRN Reason: Hypoglycemia Piperacillin Sod/Tazobactam Sod 3.375 gm/ Miscellaneous Medication 1 each/ Sodium Chloride 100 mls @ 200 mls/hr IVPB Q6HR [facility] Last Admin: 01/27/17 05:03 Dose: 100 mls Vancomycin HCl 1 gm/ Device 200 mls @ 200 mls/hr IVPB 0200,1400 [facility] Last Admin: 01/27/17 03:48 Dose: 200 mls Insulin Human Lispro (Humalog) 0 units SC .MODERATE SLIDING SC PRN PRN Reason: Moderate Correctional Scale Last Admin: 01/25/17 17:52 Dose: 2 unit Insulin Human Lispro (Humalog) 0 units SC .BEDTIME SLIDING SC PRN PRN Reason: Bedtime Correctional Scale Ketorolac Tromethamine (Toradol) 15 mg IVP Q6H PRN PRN Reason: Pain Stop: 01/29/17 16:41 Lisinopril (Zestril) 10 mg PO DAILY [facility] Last Admin: 01/27/17 07:50 Dose: 10 mg Loperamide HCl (Imodium) 2 mg PO PRN PRN PRN Reason: Diarrhea/Loose Stools Loratadine (Claritin) 10 mg PO DAILYPRN PRN PRN Reason: Sinus Symptoms Magnesium Hydroxide (Milk Of Magnesium) 30 ml PO DAILYPRN PRN PRN Reason: Constipation Metoprolol Tartrate (Lopressor) 25 mg PO BID [facility] Last Admin: 01/27/17 07:51 Dose: 25 mg Mineral Oil/White Petrolatum (Eucerin Cream) 0 gm TOP BIDPRN PRN PRN Reason: Dry Skin Miscellaneous Medication (Pharmacy To Dose) 1 each IVPB PRN PRN PRN Reason: Pharmacy to dose Mometasone Furoate/Formoterol Fumar (Dulera 200 Mcg/5 Mcg Inhaler) 2 puff INH BID-RT [facility] Last Admin: 01/27/17 07:06 Dose: 2 puff Morphine Sulfate (Morphine) 4 mg SLOW IVP Q4H PRN PRN Reason: Pain Nitroglycerin (Nitrostat) 0.4 mg SL Q5MIN PRN PRN Reason: Chest Pain Ondansetron HCl (Zofran Odt) 4 mg PO Q6H PRN PRN Reason: Nausea/Vomiting Ondansetron HCl (Zofran) 4 mg IVP Q6H PRN PRN Reason: Nausea/Vomiting Phenol (Chloraseptic [place] 180 Ml Bot) 0 ml PO PRN PRN PRN Reason: Sore Throat Senna (Senokot) 2 tab PO HSPRN PRN PRN Reason: Constipation Sodium Chloride ([place] Nasal [place] 0.65%) 0 ml EA NARE QIDPRN PRN PRN Reason: Nasal Congestion Sodium Chloride (Flush - Normal Saline) 10 ml IVF PRN PRN PRN Reason: Saline Flush Zolpidem Tartrate (Ambien) 5 mg PO HSPRN PRN PRN Reason: Insomnia
[2017-01-27 13:47] LABS: Vancomycin, Trough 17.4 ug/mL
[2017-01-27] MEDS: Atorvastatin Calcium 20 MG TAB PO SCH (20:42)
[2017-01-28] MEDS: Vancomycin HCl 1 GM in Premix Bag 1 BAG IVPB SCH ×2 (01:33→14:02)
[2017-01-28] MEDS: Piperacillin/Tazobactam 3.375 GM, Admixture Fee 1 EACH in Sodium Chloride 0.9% 100 ML IVPB SCH ×4 (05:42→23:18)
[2017-01-28] MEDS: Mometasone/Formoterol 120 PUFF INHALER INH SCH ×2 (06:33→18:34)
[2017-01-28] MEDS: Famotidine 20 MG TAB PO SCH ×2 (07:59→21:27)
[2017-01-28] MEDS: Metoprolol Tartrate 25 MG TAB PO SCH ×2 (08:00→21:27)
[2017-01-28] MEDS: Lisinopril 10 MG TAB PO SCH (08:02)
--- NOTE | 2017-01-28 11:25 | PDOC.PN ---
- Subjective Encounter Start Date: 01/28/17 Encounter Start Time: 08:30 Patient seen and examined. No new complaints. No overnight events - Objective Resuscitation Status: Resuscitation Status FULL:Full Resuscitation MAR Reviewed: Yes Vital Signs & Weight: Vital Signs (12 hours) Temp Pulse Resp BP BP Pulse Ox 01/28/17 08:02 151/73 H 01/28/17 08:00 97.7 F 95 18 165/65 H 94 L 01/28/17 07:22 98 F 89 15 01/28/17 06:31 89 15 94 L 01/28/17 03:38 92 L 01/28/17 00:55 12 Weight Admit Weight 169 lb 12.08 oz Weight 169 lb 12.08 oz I&O: 01/27/17 01/28/17 01/29/17 06:59 06:59 06:59 Intake Total 780 1152 Balance 780 1152 Result Diagrams: 01/25/17 03:49 01/25/17 03:49 Additional Labs: Accuchecks 01/28/17 01/27/17 01/27/17 04:51 19:59 16:16 POC Glucose 159 H 181 H 157 H 01/27/17 11:27 POC Glucose 152 H Phys Exam - Physical Examination Constitutional: NAD HEENT: PERRLA, moist MMs, sclera anicteric Neck: no JVD, supple Respiratory: no wheezing, no rales, no rhonchi Cardiovascular: RRR, no significant murmur, no rub Gastrointestinal: soft, non-tender, no distention, positive bowel sounds left hand with dressing Neurological: non-focal, normal sensation Lymphatic: no nodes Psychiatric: normal affect, A&O x 3 Skin: no rash, normal turgor Dx/Plan (1) Cellulitis of hand, left Code(s): L03.114 - CELLULITIS OF LEFT UPPER LIMB Status: Acute (2) Sepsis Code(s): A41.9 - SEPSIS, UNSPECIFIED ORGANISM Status: Acute (3) Atrial fibrillation Code(s): I48.91 - UNSPECIFIED ATRIAL FIBRILLATION Status: Chronic Qualifiers: Atrial fibrillation type: paroxysmal Qualified Code(s): I48.0 - Paroxysmal atrial fibrillation Comment: (4) COPD (chronic obstructive pulmonary disease) Status: Chronic Comment: (5) Chronic anticoagulation Code(s): Z79.01 - 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 (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) USE OF ANTICOAGULANTS Status: Chronic (6) Diabetes type 2, controlled Code(s): E11.9 - TYPE 2 DIABETES MELLITUS WITHOUT COMPLICATIONS Status: Chronic (7) Dyslipidemia Code(s): E78.5 - HYPERLIPIDEMIA, UNSPECIFIED Status: Chronic (8) Hypertension Code(s): I10 - ESSENTIAL (PRIMARY) HYPERTENSION Status: Chronic (9) Tobacco abuse Code(s): Z72.0 - TOBACCO USE Status: Chronic - Plan cont current plan of care, continue antibiotics * continue wound care * now culture grew GNR, will wait for sensitivity * medication reviewed as below * symptomatic treatment * pain controlled * continue IV antibiotics for now. Review of Systems - Review of Systems ENT: negative: Ear Pain, Ear Discharge, Nose Pain, Nose Discharge, Nose Congestion, Mouth Pain, Mouth Swelling, Throat Pain, Throat Swelling, Other Respiratory: negative: Cough, Dry, Shortness of Breath, Hemoptysis, SOB with Excertion, Pleuritic Pain, Sputum, Wheezing Cardiovascular: negative: Chest Pain, Palpitations, Orthopnea, Paroxysmal Noc. Dyspnea, Edema, Light Headedness, Other Gastrointestinal: negative: Nausea, Vomiting, Abdominal Pain, Diarrhea, Constipation, Melena, Hematochezia, Other Genitourinary: negative: Dysuria, Frequency, Incontinence, Hematuria, Retention , Other Musculoskeletal: negative: Neck Pain, Shoulder Pain, Arm Pain, Back Pain, Hand Pain, Leg Pain, Foot Pain, Other - Medications/Allergies Allergies/Adverse Reactions: Allergies Allergy/AdvReac Type Severity Reaction Status Date / Time No Known Drug Allergies Allergy Verified 01/24/17 16:54 Medications: Current Medications Acetaminophen (Tylenol) 650 mg PO Q4H PRN PRN Reason: Headache/Fever or Pain Hydrocodone Bitart/Acetaminophen ([place] 10/325) 1 tab PO Q4H PRN PRN Reason: Moderate Pain (4-6) Last Admin: 01/25/17 20:34 Dose: 1 tab Al Hydroxide/Mg Hydroxide (Maalox) 30 ml PO Q6H PRN PRN Reason: Heartburn or Indigestion Albuterol/Ipratropium (Duoneb) 3 ml NEB [id number] JOSEPHINE Last Admin: 01/28/17 06:31 Dose: 3 ml Artificial Tears (Tears Naturale) 0 drop EA EYE PRN PRN PRN Reason: Dry Eyes Aspirin (Aspirin Chewable) 81 mg PO DAILY [facility] Last Admin: 01/28/17 08:02 Dose: 81 mg Atorvastatin Calcium (Lipitor) 20 mg PO HS [facility] Last Admin: 01/27/17 20:42 Dose: 20 mg Benzonatate (Tessalon) 100 mg PO Q4H PRN PRN Reason: Cough Clonidine (Catapres) 0.1 mg PO Q4H PRN PRN Reason: Systolic BP > 180 Dextrose/Water (Dextrose 50%) 25 gm SLOW IVP PRN PRN PRN Reason: Hypoglycemia Famotidine (Pepcid) 20 mg PO BID [facility] Last Admin: 01/28/17 07:59 Dose: 20 mg Glucagon (Glucagon) 1 mg IM PRN PRN PRN Reason: Hypoglycemia Guaifenesin (Robitussin Sf) 200 mg PO Q4H PRN PRN Reason: Cough Hydralazine HCl (Apresoline) 10 mg SLOW IVP Q4H PRN PRN Reason: Systolic BP > 180 Dextrose/Water (D5w) 1,000 mls @ 0 mls/hr IV .Q0M PRN; As Directed PRN Reason: Hypoglycemia Piperacillin Sod/Tazobactam Sod 3.375 gm/ Miscellaneous Medication 1 each/ Sodium Chloride 100 mls @ 200 mls/hr IVPB Q6HR [facility] Last Admin: 01/28/17 05:42 Dose: 100 mls Vancomycin HCl 1 gm/ Device 200 mls @ 200 mls/hr IVPB 0200,1400 [facility] Last Admin: 01/28/17 01:33 Dose: 200 mls Insulin Human Lispro (Humalog) 0 units SC .MODERATE SLIDING SC PRN PRN Reason: Moderate Correctional Scale Last Admin: 01/25/17 17:52 Dose: 2 unit Insulin Human Lispro (Humalog) 0 units SC .BEDTIME SLIDING SC PRN PRN Reason: Bedtime Correctional Scale Ketorolac Tromethamine (Toradol) 15 mg IVP Q6H PRN PRN Reason: Pain Stop: 01/29/17 16:41 Lisinopril (Zestril) 10 mg PO DAILY [facility] Last Admin: 01/28/17 08:02 Dose: 10 mg Loperamide HCl (Imodium) 2 mg PO PRN PRN PRN Reason: Diarrhea/Loose Stools Loratadine (Claritin) 10 mg PO DAILYPRN PRN PRN Reason: Sinus Symptoms Magnesium Hydroxide (Milk Of Magnesium) 30 ml PO DAILYPRN PRN PRN Reason: Constipation Metoprolol Tartrate (Lopressor) 25 mg PO BID [facility] Last Admin: 01/28/17 08:00 Dose: 25 mg Mineral Oil/White Petrolatum (Eucerin Cream) 0 gm TOP BIDPRN PRN PRN Reason: Dry Skin Miscellaneous Medication (Pharmacy To Dose) 1 each IVPB PRN PRN PRN Reason: Pharmacy to dose Mometasone Furoate/Formoterol Fumar (Dulera 200 Mcg/5 Mcg Inhaler) 2 puff INH BID-RT [facility] Last Admin: 01/28/17 06:33 Dose: 2 puff Morphine Sulfate (Morphine) 4 mg SLOW IVP Q4H PRN PRN Reason: Pain Nitroglycerin (Nitrostat) 0.4 mg SL Q5MIN PRN PRN Reason: Chest Pain Ondansetron HCl (Zofran Odt) 4 mg PO Q6H PRN PRN Reason: Nausea/Vomiting Ondansetron HCl (Zofran) 4 mg IVP Q6H PRN PRN Reason: Nausea/Vomiting Phenol (Chloraseptic [place] 180 Ml Bot) 0 ml PO PRN PRN PRN Reason: Sore Throat Senna (Senokot) 2 tab PO HSPRN PRN PRN Reason: Constipation Sodium Chloride ([place] Nasal [place] 0.65%) 0 ml EA NARE QIDPRN PRN PRN Reason: Nasal Congestion Sodium Chloride (Flush - Normal Saline) 10 ml IVF PRN PRN PRN Reason: Saline Flush Zolpidem Tartrate (Ambien) 5 mg PO HSPRN PRN PRN Reason: Insomnia
[2017-01-28] MEDS: Atorvastatin Calcium 20 MG TAB PO SCH (21:27)
[2017-01-29] MEDS: Vancomycin HCl 1 GM in Premix Bag 1 BAG IVPB SCH (00:36)
[2017-01-29] MEDS: Piperacillin/Tazobactam 3.375 GM, Admixture Fee 1 EACH in Sodium Chloride 0.9% 100 ML IVPB SCH ×2 (05:33→11:52)
[2017-01-29] MEDS: Mometasone/Formoterol 120 PUFF INHALER INH SCH (06:29)
[2017-01-29 08:02] VITALS: BP 138/75; TEMP 98.1
[2017-01-29] MEDS: Lisinopril 10 MG TAB PO SCH (09:11)
[2017-01-29] MEDS: Famotidine 20 MG TAB PO SCH (09:11)
[2017-01-29] MEDS: Metoprolol Tartrate 25 MG TAB PO SCH (09:11)
--- NOTE | 2017-01-29 12:09 | PDOC.PN ---
- Subjective Encounter Start Date: 01/29/17 Encounter Start Time: 08:10 Patient seen and examined. No new complaints. No overnight events - Objective Resuscitation Status: Resuscitation Status FULL:Full Resuscitation MAR Reviewed: Yes Vital Signs & Weight: Vital Signs (12 hours) Temp Pulse Resp BP Pulse Ox 01/29/17 08:00 98.1 F 60 18 138/75 94 L 01/29/17 06:32 91 L 01/29/17 06:29 75 16 91 L 01/29/17 02:41 91 L Weight Admit Weight 169 lb 12.08 oz Weight 169 lb 12.08 oz I&O: 01/28/17 01/29/17 01/30/17 06:59 06:59 06:59 Intake Total 1152 2900 Balance 1152 2900 Result Diagrams: 01/25/17 03:49 01/25/17 03:49 Additional Labs: Accuchecks 01/29/17 01/29/17 01/28/17 11:03 04:39 21:10 POC Glucose 174 H 177 H 190 H 01/28/17 16:51 POC Glucose 198 H Phys Exam - Physical Examination Constitutional: NAD HEENT: PERRLA, moist MMs, sclera anicteric Neck: no JVD, supple Respiratory: no wheezing, no rales, no rhonchi Cardiovascular: RRR, no significant murmur, no rub Gastrointestinal: soft, non-tender, no distention, positive bowel sounds Musculoskeletal: no edema, pulses present hand with dressing Neurological: non-focal, normal sensation Lymphatic: no nodes Psychiatric: normal affect, A&O x 3 Skin: no rash, normal turgor Dx/Plan (1) Cellulitis of hand, left Code(s): L03.114 - CELLULITIS OF LEFT UPPER LIMB Status: Acute (2) Sepsis Code(s): A41.9 - SEPSIS, UNSPECIFIED ORGANISM Status: Acute (3) Atrial fibrillation Code(s): I48.91 - UNSPECIFIED ATRIAL FIBRILLATION Status: Chronic Qualifiers: Atrial fibrillation type: paroxysmal Qualified Code(s): I48.0 - Paroxysmal atrial fibrillation Comment: (4) COPD (chronic obstructive pulmonary disease) Status: Chronic Comment: (5) Chronic anticoagulation Code(s): Z79.01 - 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 Review of Systems - Review of Systems ENT: negative: Ear Pain, Ear Discharge, Nose Pain, Nose Discharge, Nose Congestion, Mouth Pain, Mouth Swelling, Throat Pain, Throat Swelling, Other Respiratory: negative: Cough, Dry, Shortness of Breath, Hemoptysis, SOB with Excertion, Pleuritic Pain, Sputum, Wheezing Cardiovascular: negative: Chest Pain, Palpitations, Orthopnea, Paroxysmal Noc. Dyspnea, Edema, Light Headedness, Other Gastrointestinal: negative: Nausea, Vomiting, Abdominal Pain, Diarrhea, Constipation, Melena, Hematochezia, Other Genitourinary: negative: Dysuria, Frequency, Incontinence, Hematuria, Retention , Other Musculoskeletal: negative: Neck Pain, Shoulder Pain, Arm Pain, Back Pain, Hand Pain, Leg Pain, Foot Pain, Other Skin: negative: Rash, Lesions, Roberto Carlos, Bruising, Other - Medications/Allergies Allergies/Adverse Reactions: Allergies Allergy/AdvReac Type Severity Reaction Status Date / Time No Known Drug Allergies Allergy Verified 01/24/17 16:54 Medications: Current Medications Acetaminophen (Tylenol) 650 mg PO Q4H PRN PRN Reason: Headache/Fever or Pain Last Admin: 01/28/17 14:08 Dose: 650 mg Hydrocodone Bitart/Acetaminophen ([place] 10/325) 1 tab PO Q4H PRN PRN Reason: Moderate Pain (4-6) Last Admin: 01/25/17 20:34 Dose: 1 tab Al Hydroxide/Mg Hydroxide (Maalox) 30 ml PO Q6H PRN PRN Reason: Heartburn or Indigestion Albuterol/Ipratropium (Duoneb) 3 ml NEB [id number] JOSEPHINE Last Admin: 01/29/17 06:29 Dose: 3 ml Artificial Tears (Tears Naturale) 0 drop EA EYE PRN PRN PRN Reason: Dry Eyes Aspirin (Aspirin Chewable) 81 mg PO DAILY [facility] Last Admin: 01/29/17 09:11 Dose: 81 mg Atorvastatin Calcium (Lipitor) 20 mg PO HS [facility] Last Admin: 01/28/17 21:27 Dose: 20 mg Benzonatate (Tessalon) 100 mg PO Q4H PRN PRN Reason: Cough Clonidine (Catapres) 0.1 mg PO Q4H PRN PRN Reason: Systolic BP > 180 Dextrose/Water (Dextrose 50%) 25 gm SLOW IVP PRN PRN PRN Reason: Hypoglycemia Famotidine (Pepcid) 20 mg PO BID [facility] Last Admin: 01/29/17 09:11 Dose: 20 mg Glucagon (Glucagon) 1 mg IM PRN PRN PRN Reason: Hypoglycemia Guaifenesin (Robitussin Sf) 200 mg PO Q4H PRN PRN Reason: Cough Hydralazine HCl (Apresoline) 10 mg SLOW IVP Q4H PRN PRN Reason: Systolic BP > 180 Dextrose/Water (D5w) 1,000 mls @ 0 mls/hr IV .Q0M PRN; As Directed PRN Reason: Hypoglycemia Piperacillin Sod/Tazobactam Sod 3.375 gm/ Miscellaneous Medication 1 each/ Sodium Chloride 100 mls @ 200 mls/hr IVPB Q6HR [facility] Last Admin: 01/29/17 11:52 Dose: 100 mls Vancomycin HCl 1 gm/ Device 200 mls @ 200 mls/hr IVPB 0200,1400 [facility] Last Admin: 01/29/17 00:36 Dose: 200 mls Insulin Human Lispro (Humalog) 0 units SC .MODERATE SLIDING SC PRN PRN Reason: Moderate Correctional Scale Last Admin: 01/25/17 17:52 Dose: 2 unit Insulin Human Lispro (Humalog) 0 units SC .BEDTIME SLIDING SC PRN PRN Reason: Bedtime Correctional Scale Ketorolac Tromethamine (Toradol) 15 mg IVP Q6H PRN PRN Reason: Pain Stop: 01/29/17 16:41 Lisinopril (Zestril) 10 mg PO DAILY [facility] Last Admin: 01/29/17 09:11 Dose: 10 mg Loperamide HCl (Imodium) 2 mg PO PRN PRN PRN Reason: Diarrhea/Loose Stools Loratadine (Claritin) 10 mg PO DAILYPRN PRN PRN Reason: Sinus Symptoms Magnesium Hydroxide (Milk Of Magnesium) 30 ml PO DAILYPRN PRN PRN Reason: Constipation Metoprolol Tartrate (Lopressor) 25 mg PO BID [facility] Last Admin: 01/29/17 09:11 Dose: 25 mg Mineral Oil/White Petrolatum (Eucerin Cream) 0 gm TOP BIDPRN PRN PRN Reason: Dry Skin Miscellaneous Medication (Pharmacy To Dose) 1 each IVPB PRN PRN PRN Reason: Pharmacy to dose Mometasone Furoate/Formoterol Fumar (Dulera 200 Mcg/5 Mcg Inhaler) 2 puff INH BID-RT [facility] Last Admin: 01/29/17 06:29 Dose: 2 puff Morphine Sulfate (Morphine) 4 mg SLOW IVP Q4H PRN PRN Reason: Pain Nitroglycerin (Nitrostat) 0.4 mg SL Q5MIN PRN PRN Reason: Chest Pain Ondansetron HCl (Zofran Odt) 4 mg PO Q6H PRN PRN Reason: Nausea/Vomiting Ondansetron HCl (Zofran) 4 mg IVP Q6H PRN PRN Reason: Nausea/Vomiting Phenol (Chloraseptic [place] 180 Ml Bot) 0 ml PO PRN PRN PRN Reason: Sore Throat Senna (Senokot) 2 tab PO HSPRN PRN PRN Reason: Constipation Sodium Chloride ([place] Nasal [place] 0.65%) 0 ml EA NARE QIDPRN PRN PRN Reason: Nasal Congestion Sodium Chloride (Flush - Normal Saline) 10 ml IVF PRN PRN PRN Reason: Saline Flush Last Admin: 01/28/17 14:11 Dose: 10 ml Zolpidem Tartrate (Ambien) 5 mg PO HSPRN PRN PRN Reason: Insomnia
[2017-01-29 14:16] LABS: Vancomycin, Trough 17.5 ug/mL
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
--- NOTE | 2017-01-31 08:40 | EKG ---
Test Reason : PREOP Blood Pressure : / mmHG Vent. Rate : 076 BPM Atrial Rate : 076 BPM P-R Int : 160 ms QRS Dur : 070 ms QT Int : 384 ms P-R-T Axes : -29 070 061 degrees QTc Int : 432 ms Sinus rhythm with Premature atrial complexes Nonspecific T wave abnormality Abnormal ECG When compared with ECG of 04-DEC-2016 18:47, Nonspecific T wave abnormality, worse in Inferior leads QT has shortened Confirmed by Lauren MATT ([id number]) on 01/31/2017 8:39:31 AM Referred By: GAGAN Confirmed By:Lauren MATT
--- NOTE | 2017-02-01 12:43 | OP ---
DATE OF SURGERY: 01/26/2017 PREOPERATIVE DIAGNOSIS: Left thumb base of the ulnar thenar webspace of the thumb, puncture wound wi th abscess. POSTOPERATIVE DIAGNOSIS: Left thumb base of the ulnar thenar webspace of the thumb, puncture wound w ith abscess. FINDINGS: 1. Mucopurulent material directly on the skin, 1 cm in length, 3 mm in depth did not violate the fle xor tendon. 2. No evidence of digital neurovascular formation, and neuroplasty. HISTORY: Patient complained of puncture wound almost 5-7 days prior to evaluation, noted some purule nce and drains, admitted, had on IV antibiotics, but still had persistent fluctuance over his operati on as indicated. White blood cell count is minimally elevated. Cultures would be taken. PROCEDURES PERFORMED: 1. Left thumb, incision and drainage of abscess. 2. Left thumb, wound edge debridement, [id number] superficial depth only. 3. Thumb digital nerve neuroplasty. 4. Index finger radial digital nerve neuroplasty. ANESTHESIA: General LMA technique augmented by 12 mL, 0.5% Marcaine para-incisional block. INDICATIONS: As listed above. DESCRIPTION OF PROCEDURE: After successful general LMA technique, the limb was prepped and draped. Timeout was then properly identified, this is the injured side, and we also saw the laceration. Inci ryan was extended 1 cm distal, 1 cm proximal, and on towards the index finger web, where we could the n dissect down to an inspect and we would follow the 1-2 mm depth to the abscess and abscess cavity t o be excised, then we did a neuroplasty of the ulnar digital nerve to the thumb and a radial digital nerve to the index finger, which all form a common branch and found no laceration or hematoma. We ir rigated this area out with 3 liters of normal saline, Pulsavac pressure, closed only the area we crea david leaving the open part from the injury still intact and place the patient in a sterile dressing wi th appropriate gauze, splint, and with an Marc wrap and told the patient to follow up with us in 3-5 d ays.
== END 2017-01-29 14:35 | disposition home or self-care (01) | DRG 854 ==
LOC: ERS 12:03 → T4-A 16:30
PROVIDERS: ADMIT Internal Medicine; ATTEND Internal Medicine
PROC: 0J9K0ZZ Drainage of Left Hand Subcutaneous Tissue and Fascia, Open Approach (ICD-10-PCS; principal; 2017-01-29)
PROC: 01Q60ZZ Repair Radial Nerve, Open Approach (ICD-10-PCS; 2017-01-29)
PROC: 01Q40ZZ Repair Ulnar Nerve, Open Approach (ICD-10-PCS; 2017-01-29)
DX: A41.9 Sepsis, unspecified organism (principal); L03.114 Cellulitis of left upper limb; I48.0 Paroxysmal atrial fibrillation; J44.9 Chronic obstructive pulmonary disease, unspecified; L02.512 Cutaneous abscess of left hand; E11.9 Type 2 diabetes mellitus without complications; I10 Essential (primary) hypertension; E78.5 Hyperlipidemia, unspecified; F17.210 Nicotine dependence, cigarettes, uncomplicated; Z79.01 Long term (current) use of anticoagulants; Z79.84 Long term (current) use of oral hypoglycemic drugs; I25.10 Atherosclerotic heart disease of native coronary artery without angina pectoris; Z95.5 Presence of coronary angioplasty implant and graft; B96.89 Other specified bacterial agents as the cause of diseases classified elsewhere
CPT/HCPCS: 12001; 36415; 36416; 80053; 80202; 83605; 85025; 85610; 85652; 85730; 86140; 87040; 87070; 87077; 87186; 87205; 90471; 90682; 90715; 90732; 93005; 93010; 94640; 94664; 96361; 96365; 96375; A4216; G0008; G0009; J1885; J2001; J2250; J2270; J2405; J2543; J2704; J3010; J3370; J3430; J3490; J7050; J7620; Q2036

== ENCOUNTER 2017-02-11 18:53 | Emergency (ER) | payer MEDICARE ==
[2017-02-11 19:33] LABS: #Basophils 0.1 thou/uL (0.0-0.2); #Eosinphils 0.2 thou/uL (0.0-0.7); #Lymphocytes 1.9 thou/uL (1.20-3.40); #Monocytes 0.8 thou/uL (0.11-0.59); #Neutrophils 9.6 thou/uL (1.40-6.50); %Basophils 0.8 % (0.0-1.0); %Eosinophils 1.5 % (0.0-10.0); %Monocytes 6.3 % (0.0-10.0); Hematocrit 41.6 % (42.0-52.0); Mean Platelet Volume 8.8 fL (7.4-10.4); Red Blood Cell (RBC) Count 4.47 mill/uL (4.70-6.10); White Blood Cell (WBC) Count 12.5 thou/uL (4.8-10.8)
[2017-02-11] MEDS ORDERED: Albuterol Sulfate 2.5 mg/3 ml Neb ONE ×2 (19:41→21:34)
[2017-02-11] MEDS ORDERED: Albuterol Sulfate 2.5 mg/0.5 ml Neb ONE (19:41)
[2017-02-11 19:53] LABS: ALT (SGPT) 13 U/L (8-55); AST (SGOT) 22 U/L (5-34); Alkaline Phosphatase 103 U/L (40-150); Anion Gap 13 mmol/L (10-20); BUN (Urea Nitrogen) 12 mg/dL (8.4-25.7); CK (CPK) 67 U/L (30-200); Calc. Creatinine Clearance 0 mL/min (70-130); Calcium 9.9 mg/dL (7.8-10.44); Carbon Dioxide 25 mmol/L (23-31); Chloride 106 mmol/L (98-107); Estimated GFR-MDRD 86; Globulin 3.7 g/dL (2.4-3.5)
[2017-02-11] MEDS ORDERED: methylPREDNISolone Sod Succ/PF 125 MG/2 ML VIAL ONE (19:55)
[2017-02-11] MEDS ORDERED: Water For Inject, Bacteriostat 30 ML ONE (19:56)
--- NOTE | 2017-02-11 19:56 | RAD ---
CHEST ONE VIEW 02/11/17 HISTORY: Shortness of breath. COPD exacerbation. COMPARISON: 09/04/16. FINDINGS: Atherosclerosis of the aorta. Normal cardiac silhouette. The pulmonary vessels and hilum are normal. Costophrenic angles are clear. Hyperinflation with chronic changes. No mass. No consolidation. No oss eous abnormalities or pneumothorax. IMPRESSION: 1. COPD. 2. Chronic changes. 3. Atherosclerosis of the aorta. POS: ISAIAS
[2017-02-11 19:58] LABS: Troponin I 0.015 ng/mL (< 0.028)
== END 2017-02-11 22:56 | disposition home or self-care (01) ==
LOC: ERS 18:53
DX: J44.1 Chronic obstructive pulmonary disease with (acute) exacerbation (principal); I48.91 Unspecified atrial fibrillation; I10 Essential (primary) hypertension; E11.9 Type 2 diabetes mellitus without complications; Z71.6 Tobacco abuse counseling; F17.210 Nicotine dependence, cigarettes, uncomplicated
CPT/HCPCS: 71010; 80053; 82553; 84484; 85025; 94640; 94760; 96374; 99406; J2930; J7611; J7620

== ENCOUNTER 2017-02-12 07:58 | Outpatient (CLI) | payer MEDICARE ==
--- NOTE | 2017-02-12 09:31 | ULT ---
SOFT TISSUE ULTRASOUND OF THE LEFT HAND: Date: 02/12/17 INDICATION: History of abscess in the volar aspect of the left thumb thenar eminence with persistent swelling of the left hand and left wrist. TECHNIQUE: Rapp scale and color Doppler images were obtained of the left thumb, left thenar eminence, volar aspe ct of the left wrist and dorsal aspect of the left hand. FINDINGS: The visualized flexor tendons of the left thumb appear intact. No focal drainable fluid collection is seen within the soft tissues overlying the left thenar eminence and the left thumb surgical scar. Th ere are edematous changes seen within the soft tissues overlying the volar aspect of the left thumb a nd volar aspect of the left wrist. There is soft tissue edema involving the dorsal aspect of the left thumb. IMPRESSION: 1. Soft tissue edema of the left thumb and volar aspect of the wrist and dorsal aspect of the hand w ithout evidence of a drainable fluid collection. 2. There are no overt changes to suggest presence of flexor tenosynovitis of the left thumb flexor t endon. POS: ISAIAS
== END 2017-02-12 07:59 | disposition home or self-care (01) ==
LOC: ULT 07:58
PROVIDERS: ATTEND Orthopaedic Surgery Hand Surgery
DX: L02.91 Cutaneous abscess, unspecified (principal); R60.0 Localized edema
CPT/HCPCS: 76999

== ENCOUNTER 2017-02-28 15:40 | Inpatient (IN) | payer MEDICARE ==
[~2017-02-28 15:40] MED LIST: ISOVUE-370 76%-LOCM 1 ML ONE
[2017-02-28 16:51] LABS: #Basophils 0.1 thou/uL (0.0-0.2); #Eosinphils 0.2 thou/uL (0.0-0.7); #Lymphocytes 1.8 thou/uL (1.20-3.40); #Monocytes 0.9 thou/uL (0.11-0.59); #Neutrophils 13.7 thou/uL (1.40-6.50); %Basophils 0.5 % (0.0-1.0); %Monocytes 5.1 % (0.0-10.0); %Neutrophils 82.4 % (42.0-75.0); Hemoglobin 12.9 g/dL (14.0-18.0); Mean Corpuscular HGB CONC 33.4 g/dL (32.0-36.0); Mean Corpuscular Hemoglobin 30.9 pg (27.0-31.0); Mean Corpuscular Volume 92.6 fl (80.0-94.0); Mean Platelet Volume 7.7 fL (7.4-10.4); Platelet Count 209 thou/uL (130-400); Red Blood Cell (RBC) Count 4.17 mill/uL (4.70-6.10); White Blood Cell (WBC) Count 16.6 thou/uL (4.8-10.8)
[2017-02-28 17:12] LABS: ALT (SGPT) 19 U/L (8-55); AST (SGOT) 15 U/L (5-34); Alkaline Phosphatase 99 U/L (40-150); Anion Gap 14 mmol/L (10-20); BUN (Urea Nitrogen) 20 mg/dL (8.4-25.7); Bilirubin, Total 1.4 mg/dL (0.2-1.2); Calc. Creatinine Clearance 0 mL/min (70-130); Calcium 9.5 mg/dL (7.8-10.44); Carbon Dioxide 23 mmol/L (23-31); Chloride 104 mmol/L (98-107); Estimated GFR-MDRD 77; Globulin 2.6 g/dL (2.4-3.5); Glucose 100 mg/dL (83-110); Protein, Total 6.6 g/dL (5.8-8.1); Sodium 137 mmol/L (136-145)
[2017-02-28] MEDS ORDERED: methylPREDNISolone Sod Succ/PF 125 MG/2 ML VIAL ONE (17:38)
[2017-02-28] MEDS ORDERED: Morphine 4 MG/ML VIAL ONE (17:38)
[2017-02-28] MEDS ORDERED: Water For Inject, Bacteriostat 30 ML ONE (17:38)
[2017-02-28] MEDS ORDERED: Ondansetron HCl/PF 4 MG/2 ML Vial ONE (17:38)
--- NOTE | 2017-02-28 17:57 | RAD ---
UPRIGHT PORTABLE CHEST ONE VIEW: History: 71-year-old male with dyspnea. Comparison: 02-11-17 FINDINGS: Monitor leads overlie the chest. Heart size is within upper range of normal limits. Atherosclerosis o f the aorta. No confluent pneumonia, overt edema, or pleural effusions. IMPRESSION: No acute intrathoracic disease. POS: YOBANYH
[2017-02-28] MEDS ORDERED: Metoprolol Tartrate 5 MG/5 ML VIAL ONE ×2 (18:01→18:03)
[2017-02-28 19:20] LABS: Bilirubin Negative (Negative); Blood, Urine Small (Negative); Clarity CLEAR (Clear); Glucose, Urine (Dipstick) Negative (Negative); Leukocyte Negative (Negative); Nitrite Negative (Negative); Protein, Urine (Dipstick) Negative (Neg-Trace); Specific Gravity, Urine 1.019 (1.002-1.036); pH, Urine 6.5 (5.0-9.0)
[2017-02-28 19:22] LABS: Bacteria/HPF None Seen HPF (None Seen); Hyaline Casts/LPF 0-3 HYALINE CAST LPF (0-3 Hyaline); Pathc Cast-AUWi Flag 0.13 (0-2.49); RBC/HPF 0-3 HPF (0-3); Squamous Epithelial None Seen HPF (0-3); WBC/HPF 0-3 HPF (0-3)
--- NOTE | 2017-02-28 19:23 | CT ---
CHEST CT ANGIOGRAM INCLUDING 3D RENDERING: History: 71-year-old male with dyspnea. FINDINGS: There are some bilateral bullous emphysema changes particularly in the upper lung zones with some sca ttered linear, interstitial, and reticular nodular parenchymal changes throughout both lungs. There i s some peribronchial thickening bilaterally, particularly in the mid and lower lobes with some minima l bilateral lower lobe pleural thickening and some subpleural linear parenchymal changes having more the appearance of chronic interstitial lung disease. There is prominent three vessel coronary artery calcific disease. No CT evidence for acute pulmonary embolism. 2.5 cm diameter nodule involving the r ight lobe of thyroid. Appearance is little changed from the prior 12-05-10 study. IMPRESSION: Extensive bilateral chronic lung changes. These chronic lung changes have definitely progressed when compared to a 12-05-[address] evidence for an acute pulmonary embolism. Stable right thyroid nodule. POS: H
[2017-02-28] MEDS ORDERED: Levalbuterol HCl 1.25 MG/0.5 ML NEB NEB SCH (21:30)
[2017-02-28 22:13] LABS: PTT 50.6 SEC (22.9-36.1); Prothrombin Time 46.5 SEC (12.0-14.7)
[2017-02-28 22:31] LABS: INR-International Normal Ratio 4.7
--- NOTE | 2017-02-28 22:34 | PDOC.EVN ---
Event Note - Event Note Event Note: I saw and examined the patient. History, exam, assessment and plan reviewed with Dr. Greer and agree with resident's documentation. Briefly, this is 71 yo male with h/o COPD, CAD, A-fib, DM, HTN presents c/o pleuritic chest pain located posteriorly. Patient reports that he began having worsening cough since Wednesday. Wednesday when he awake had back pain across his mid-back, sharp, non-radiating. Worse with cough and deep inspiration. Denies any fever/chills. Has been needing to use his albuterol inhaler more frequently. Denies any ill contacts. BP 180/78 P137 RR 35 98% 2L T97.8 General: wd/wn WM in mild respiratory distress- using purse lip breathing Lungs- decreased BS diffusely; no wheezes CV- tachycardic; no murmurs Abd- soft; nt/nd Ext- left hand in dressing from recent I&D due to abscess CXR- flattened diaphragms; no infiltrates CT angio chest- no PE Labs: WBC 16.6 82%N A/P: 1) COPD exacerbation- Admit to telemetry; O2 to keep sats >88%; Duonebs q4 hours; received methylprenisolone in ER; continue po steroids starting tomorrow ; continue abx 2) Tachycardia- Sinus tach; no a-fib currently; continue to monitor 3) DM- continue home medications 4) HTN- continue home medications
[2017-02-28] MEDS ORDERED: Acetaminophen 325 MG TAB PO PRN (23:37)
[2017-02-28] MEDS ORDERED: Ondansetron HCl/PF 4 MG/2 ML Vial IVP PRN (23:37)
[2017-02-28] MEDS ORDERED: Ondansetron ODT 4 MG TAB SL PRN (23:37)
[2017-02-28] MEDS ORDERED: HYDROcodone/Acetaminophen 5/325 mg Tablet PO PRN ×2 (23:37)
[2017-02-28] MEDS ORDERED: Dextrose 5 %-0.45 % NaCl 1,000 ML IV SCH (23:45)
[2017-03-01] MEDS ORDERED: Sodium Chloride 0.9% 1,000 ML IV SCH (00:03)
[2017-03-01] MEDS ORDERED: Dextrose 5% in Water 1,000 ML IV PRN (00:03)
[2017-03-01] MEDS ORDERED: traMADol HCl 50 MG TAB PO PRN (00:03)
[2017-03-01] MEDS ORDERED: HumaLOG 300 UNITS/3 ML VIAL SC PRN (00:03)
[2017-03-01] MEDS ORDERED: Acetaminophen 325 MG TAB PO PRN (00:03)
[2017-03-01] MEDS ORDERED: Albuterol Sulfate 2.5 mg/3 ml Neb NEB PRN (00:03)
[2017-03-01] MEDS ORDERED: Dextrose 50% Abboject 50 ML SYRINGE SLOW IVP PRN (00:03)
[2017-03-01] MEDS: Sodium Chloride 0.9% 1,000 ML IV SCH ×3 (00:36→12:11)
[2017-03-01] MEDS ORDERED: PROVENTIL INHALER 6.7 G (200 INHALATIONS) INH PRN (04:56)
[2017-03-01] MEDS ORDERED: Loratadine 10 MG TAB PO PRN (05:15)
[2017-03-01 05:33] LABS: #Lymphocytes 0.5 thou/uL (1.20-3.40); #Monocytes 0.2 thou/uL (0.11-0.59); #Neutrophils 8.7 thou/uL (1.40-6.50); %Eosinophils 0.3 % (0.0-10.0); %Lymphocytes 5.2 % (21.0-51.0); %Monocytes 1.7 % (0.0-10.0); %Neutrophils 92.8 % (42.0-75.0); Hemoglobin 11.7 g/dL (14.0-18.0); Mean Corpuscular HGB CONC 33.2 g/dL (32.0-36.0); Mean Corpuscular Hemoglobin 30.8 pg (27.0-31.0); Mean Corpuscular Volume 92.7 fl (80.0-94.0); Mean Platelet Volume 8.1 fL (7.4-10.4); Platelet Count 172 thou/uL (130-400); RBC Distribution Width 15.7 % (11.5-14.5); Red Blood Cell (RBC) Count 3.81 mill/uL (4.70-6.10); White Blood Cell (WBC) Count 9.3 thou/uL (4.8-10.8)
[2017-03-01 05:58] LABS: Anion Gap 14 mmol/L (10-20); BUN (Urea Nitrogen) 21 mg/dL (8.4-25.7); Calc. Creatinine Clearance 73 mL/min (70-130); Carbon Dioxide 21 mmol/L (23-31); Chloride 105 mmol/L (98-107); Estimated GFR-MDRD 75; Glucose 345 mg/dL (83-110); Potassium 4.5 mmol/L (3.5-5.1); Sodium 135 mmol/L (136-145)
--- NOTE | 2017-03-01 06:02 | HP-2 ---
CODE STATUS: DNR. PRIMARY CARE PHYSICIAN: [facility] ATTENDING PHYSICIAN: Dr. Shasha Hopkins RESIDENT PHYSICIAN: Dr. Aminta Mccormick CHIEF COMPLAINT: Back pain and shortness of breath. HISTORY OF PRESENT ILLNESS: This is a 71-year-old male that presented with low back pain secondary to recent surgery for compression fracture on 09/04/2016. On evaluation, he was found to have difficulty breathing. The patient states that he has had worsening cough with mucus production since Wednesday. He has a history of COPD, for which he takes Symbicort daily. He states he uses CPAP at night with O2, but does not use oxygen at any other time. Patient denies chest pain, palpitations, edema, paroxysmal nocturnal dyspnea, or orthopnea. He is a former smoker that quit 6 weeks ago. In the emergency department, he was found to be tachycardic in the 150s and tachypneic in the low 30s. He was given Lopressor and Cardizem in an attempt to bring down the pulse rate. In addition , he was given Solu-Medrol to assist with his breathing. The patient was placed on 2 liters nasal cannula and has been satting in the upper 90s. PAST MEDICAL HISTORY: 1. Paroxysmal atrial fibrillation. 2. Diabetes mellitus type 2. 3. Chronic obstructive pulmonary disease. 4. Hypertension. 5. Coronary artery disease, status post stent. 6. Tobacco abuse. PAST SURGICAL HISTORY: 1. Left leg surgery for fracture. 2. Cardiac catheterization with stent in 1997. 3. Left hand surgery in 01/2017 for cellulitis. ALLERGIES: No known drug allergies. MEDICATIONS: 1. Aspirin 81 mg daily. 2. Atorvastatin 40 mg half tablet at bedtime. 3. Zyrtec 10 mg daily as needed for allergies. 4. Glipizide 5 mg daily. 5. Warfarin 4 mg daily at 5:00 p.m. 6. Lactobacillus acidophilus oral 1 billion cell count 1 tablet daily. 7. Lisinopril 25 mg daily at noon. 8. Metformin 1000 mg half tablet two times daily in the morning and evening. 9. Metoprolol tartrate 50 mg b.i.d. 10. Multivitamin 1 tablet daily. 11. Pepcid 40 mg daily. 12. Proventil HFA inhalation 90 mcg actuation 2 puffs every 4 to 6 hours as needed for shortness of breath. 13. Symbicort inhalation 160/4.5 mcg/actuation 1 puff 2 times daily for COPD. 14. Vitamin B12 oral 1000 mcg 1 tablet daily. 15. Bactrim DS b.i.d. 16. Rifampin 150 mg b.i.d. 17. Prednisone 20 mg daily. FAMILY HISTORY: Noncontributory. SOCIAL HISTORY: The patient is a former smoker. He states that he smoked 1 pack per day for the past 50 years and he quit as recent as 6 weeks ago. He denies alcohol or drug use and he does live at home alone. REVIEW OF SYSTEMS: A 12-point review of systems was performed, all were negative except as listed in the HPI or as indicated below. The patient does endorse diarrhea x2 days. He had three bouts of diarrhea this morning, but has since had one normal bowel movement. He denies any abdominal pain or GI bleeding. The patient endorses low back pain at the level of T9, where he had recent surgery for a compression fracture and has undergone kyphoplasty. There is some tenderness at that location. The patient does endorse recent worsening cough since Wednesday associated with shortness of breath, exercise intolerance. He denies any edema, paroxysmal nocturnal dyspnea or orthopnea. Patient also denies any chest pain or palpitations. PHYSICAL EXAMINATION: VITAL SIGNS: Blood pressure 180/78, pulse 137, respiratory rate 39, T-max 97.8 , pulse ox 98% on 2 liters. Current weight 75 kilograms. GENERAL: The patient is alert and oriented x3, no acute distress. Well- developed, well-nourished, appropriately interactive. EYES: Pupils equally round and reactive to light and accommodation. Extraocular muscles intact. ENT: Nasal mucosa within normal limits. NECK: Supple. CARDIOVASCULAR: Patient is tachycardic in the 130s. There are no murmurs or gallops. Radial and pedal pulses are 2+. RESPIRATORY: The patient does appear to have increased respiratory effort. He has obvious pursing of the lips. There are no retractions and there are decreased breath sounds in the bases bilaterally. SKIN: Warm and dry. No cyanosis or lesions. ABDOMEN: Abdomen is soft, nontender to palpation. Bowel sounds positive in all 4 quadrants. Patient's abdomen is mildly distended, although there is no apparent fluid wave. There are no palpable masses. Patient's liver does appear to be enlarged based on palpation of the abdomen. EXTREMITIES: No clubbing, cyanosis, or edema. MUSCULOSKELETAL: Structure within normal limits. Tone within normal limit. NEUROLOGIC: No focal deficits. Sensation within normal limits. GCS 15. PSYCHIATRIC: Appropriate. LABORATORY FINDINGS: CBC revealed white blood cell count of 16.6, hemoglobin 12.9, hematocrit 38.7, and platelets of 209, 82% neutrophils. CMP reveals sodium 137, potassium 40, chloride 104, bicarbonate 23, BUN 20, creatinine 0.96 and a glucose of 100, calcium 9.5, total protein 6.6, albumin 4.0, total bilirubin 1.4, AST 15, ALT 19, and an alkaline phosphatase of 99. UA specific gravity of 1.019 and small blood. D-dimer, less than 0.27. EKG shows sinus tachycardia. Chest x-ray, no acute intrathoracic findings. CT of chest, thorax, no evidence of pulmonary embolism; however, there is some chronic lung changes. Influenza A and B negative. ASSESSMENT AND PLAN: This is a 71-year-old male with past medical history of COPD, hypertension, and coronary artery disease, who presents with low back pain and shortness of breath. 1. Acute on chronic hypoxic respiratory failure secondary to chronic obstructive pulmonary disease exacerbation. Patient was admitted to telemetry. He will be started on prednisone 40 mg daily for 5 days as well as Levaquin 750 mg for 7 days. The patient will be scheduled DuoNebs q.4 h. with q.2 h. albuterol treatments p.r.n. for breakthrough shortness of breath and wheezing. We will monitor O2 sats and keep above 92% with oxygen. Patient is currently on 2 liters. We will continue to monitor his oxygen requirements. The patient is on CPAP at night with O2 and we will continue the CPAP at night. If patient acutely worsens, we will consider getting an ABG to assess acid base status. 2. Chronic obstructive pulmonary disease exacerbation. See plan for above. We will also continue maintenance fluids with normal saline at 100 mL per hour. 3. Tachycardia. This is likely secondary to patient's work of breathing. We will continue to monitor on telemetry. EKG did show sinus tachycardia, no evidence of atrial fibrillation or atrial flutter. There is also no evidence of supraventricular tachycardia. The patient is stable and relatively asymptomatic aside from his work of breathing. 4. Paroxysmal atrial fibrillation. No evidence of atrial fibrillation on EKG. The patient does take warfarin. INR is pending to assess if patient is therapeutic on warfarin. We will continue to monitor on telemetry. 5. Diabetes mellitus type 2. We will continue home medications to include glipizide and metformin. Patient will be placed on mild sliding scale insulin. 6. Hypertension. We will continue patient's home medications include Lopressor and lisinopril. 7. Hyperlipidemia. We will continue home medication. 8. Coronary artery disease, status post stents. We will continue to monitor and continue the patient's home medications. 9. Low back pain secondary to compression fractures, status post kyphoplasty. We will start patient on tramadol in an attempt to control pain. 10. Deep venous thrombosis prophylaxis, SCDs. 11. Gastrointestinal prophylaxis. We will continue patient's home medication of Pepcid. DISPOSITION AND LENGTH OF HOSPITAL STAY: Two days. Symptomatic medication will be provided. History and physical exam as well as management discussed with Dr. Shasha Hopkins. MARY
[2017-03-01] MEDS: Mometasone/Formoterol 120 PUFF INHALER INH SCH ×2 (08:16→19:29)
[2017-03-01] MEDS: glipiZIDE 5 MG TAB PO SCH (08:24)
[2017-03-01] MEDS: predniSONE 20 MG TAB PO SCH (08:24)
[2017-03-01] MEDS: metFORMIN 500 MG TAB PO SCH ×2 (08:25→15:55)
[2017-03-01] MEDS: Sulfameth/Trimethoprim DS 800-160mg TAB PO SCH ×2 (09:24→20:40)
[2017-03-01] MEDS: Multivit, Therapeutic 1 TAB PO SCH (09:25)
[2017-03-01] MEDS: Rifampin 150 MG CAP PO SCH ×2 (09:25→20:40)
[2017-03-01] MEDS: Famotidine 20 MG TAB PO SCH (09:26)
[2017-03-01] MEDS: Metoprolol Tartrate 50 MG TAB PO SCH ×2 (09:27→20:40)
[2017-03-01 09:52] LABS: CKMB 2.6 ng/mL (0-6.6); Troponin I 0.011 ng/mL (< 0.028)
--- NOTE | 2017-03-01 10:24 | PDOC.FM ---
- Subjective Subjective: The patient reports that he is feeling better this morning from a breathing standpoint. He is still feeling his heart racing periodically, but not all the time. He reports that his heart started racing on Wednesday. He is not lightheaded or dizzy. He is having back pain, but no chest pain. - Objective MAR Reviewed: Yes Vital Signs & Weight: Vital Signs (12 hours) Temp Pulse Resp BP Pulse Ox 03/01/17 08:16 139 H 20 95 03/01/17 08:15 139 H 20 95 03/01/17 07:55 98.5 F 138 H 19 153/96 H 92 L 03/01/17 05:49 97.7 F 137 H 18 135/85 95 03/01/17 01:43 133 H 18 94 L 02/28/17 23:51 97.7 F 140 H 26 H 92 L Weight Weight 77.337 kg I&O: 02/28/17 03/01/17 03/02/17 06:59 06:59 06:59 Intake Total 1090 Balance 1090 Result Diagrams: 03/01/17 04:56 03/01/17 04:56 <Nancy Kemp - Last Filed: 03/01/17 10:23> - Objective Vital Signs & Weight: Vital Signs (12 hours) Temp Pulse Resp BP Pulse Ox 03/01/17 08:16 139 H 20 95 03/01/17 08:15 139 H 20 95 03/01/17 07:55 98.5 F 138 H 19 153/96 H 92 L 03/01/17 05:49 97.7 F 137 H 18 135/85 95 03/01/17 01:43 133 H 18 94 L 02/28/17 23:51 97.7 F 140 H 26 H 92 L Weight Weight 77.337 kg I&O: 02/28/17 03/01/17 03/02/17 06:59 06:59 06:59 Intake Total 1090 Balance 1090 Result Diagrams: 03/01/17 04:56 03/01/17 04:56 <Arturo Jara - Last Filed: 03/01/17 10:42> Phys Exam - Physical Examination Constitutional: NAD HEENT: moist MMs Respiratory: wheezing present Decreased air movement Cardiovascular: no significant murmur tachycardic, regular rhythm Gastrointestinal: soft, non-tender, no distention, positive bowel sounds Musculoskeletal: no edema, pulses present Neurological: non-focal, moves all 4 limbs Psychiatric: normal affect, A&O x 3 <Nancy Kemp - Last Filed: 03/01/17 10:23> Dx/Plan (1) Acute and chronic respiratory failure with hypoxia Code(s): J96.21 - ACUTE AND CHRONIC RESPIRATORY FAILURE WITH HYPOXIA Status: Acute Plan: Udply-bj-Hnnawoh respiratory failure 2/2 COPD exacerbation Patient not on O2 at home, now requiring 2L O2 -ABG -O2 prn, Wean as tolerated -Duonebs -Prednisone -CPAP at night per patients home regimen for NURY (2) Sinus tachycardia Code(s): R00.0 - TACHYCARDIA, UNSPECIFIED Status: Acute Plan: Patient having sinus tachycardia to 130s-140s that has not been relieved by metoprolol. He has been in this rhythm on tele since arrival. -Will get ABG -Trops were negative -CTA negative -No signs of infection, patient is s/p several fluid boluses -Consult cards pending ABG results (3) COPD exacerbation Code(s): J44.1 - CHRONIC OBSTRUCTIVE PULMONARY DISEASE W (ACUTE) EXACERBATION Status: Acute Plan: COPD exacerbation -Prednisone -Levaquin -Duonebs -O2 prn -Monitor on tele (4) CAD (coronary artery disease) Code(s): I25.10 - ATHSCL HEART DISEASE OF [place] CORONARY ARTERY W/O ANG PCTRS Status: Acute QualifierTitle: Coronary Disease-Associated Artery/Lesion type: [place] artery [place] vs. transplanted heart: [place] heart Associated angina: with unspecified angina Qualified Code(s): I25.119 - Atherosclerotic heart disease of [place] coronary artery with unspecified angina pectoris Plan: Patient has h/o CAD s/p stent. 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 (5) Atrial fibrillation Code(s): I48.91 - UNSPECIFIED ATRIAL FIBRILLATION Status: Chronic QualifierTitle: Atrial fibrillation type: paroxysmal Qualified Code(s): I48.0 - Paroxysmal atrial fibrillation Plan: On Warfarin INR is supratheraputic -Will hold 3-4 doses, and recheck (6) Diabetes type 2, controlled Code(s): E11.9 - TYPE 2 DIABETES MELLITUS WITHOUT COMPLICATIONS Status: Chronic QualifierTitle: Diabetes mellitus complication status: with unspecified complications Diabetes mellitus fci insulin use: without fci use Qualified Code(s): E11.8 - Type 2 diabetes mellitus with unspecified complications Plan: Continue metformin Accuchecks Diabetic Diet (7) Hypertension Code(s): I10 - ESSENTIAL (PRIMARY) HYPERTENSION Status: Chronic QualifierTitle: Hypertension type: essential hypertension Qualified Code( s): I10 - Essential (primary) hypertension Plan: Continue home meds <Nancy Kemp - Last Filed: 03/01/17 10:23> Attending Addendum - Attending Addendum I personally evaluated the patient and discussed the management with Dr. Kemp. I agree with the History, Examination, Assessment and Plan documented above with any addition or exceptions noted below. Patient admitted with worsening hypoxia thought 2/2 COPD with exacerbation. He is receiving treatment for this and reports improvement in breathing. However, he has a persistent tachycardia, sinus tachy, that continues despite improvement in respiratory status. Upon further questioning, patient actually admits to palpitations and back pain that has persisted over the last 4 days that preceded the worsening shortness of breath. Troponins will be checked, obtaining ABG to ensure no hypercapnia, and will consult cardiology. Patient has history of pAfib but this is not consistent with that. No evidence of atrial tachy, MAT, SVT. <Arturo Jara - Last Filed: 03/01/17 10:42>
[2017-03-01 10:48] LABS: Actual Bicarbonate (HCO3a) 21.1 mEq/L (22-26); Base Excess (BEa) -2.2 mEq/L (0 (+/-) 2.5); CO2 Tension 31.6 mmHg (35.0-45.0); Calcium, Ionized 1.2 mmol/L (1.12-1.30); Hematocrit-ABG 33.5 % (42.0-52.0); Hemoglobin (Hb) 10.9 g/dL (14.0-18.0); O2 Tension (PaO2) 79.2 mmHg (80.0-100.0); pH, Arterial 7.44 (7.35-7.45)
[2017-03-01 10:49] LABS: Analyzer IN Cardio OR; Puncture Site RRA
[2017-03-01] MEDS: Lisinopril 10 MG TAB PO SCH (15:56)
[2017-03-01] MEDS ORDERED: Amiodarone HCl 150 MG in Dextrose 5% in Water 100 ML IVPB SCH ×2 (17:00)
[2017-03-01] MEDS: Amiodarone HCl 450 MG in Dextrose 5% in Water 250 ML IVPB SCH ×2 (18:01)
--- NOTE | 2017-03-01 19:50 | CON ---
DATE OF CONSULTATION: 03/01/2017 HISTORY OF PRESENT ILLNESS: Tab Jiménez is a 71-year-old white male with a history of coronary artery disease. In 1999, he had a stent in the mid right coronary artery placed. He underwent repeat catheterization in 05/2003 and the stent was patent. Most recently, he had a Lexiscan Cardiolite performed in the office, which revealed a small fixed defects in the inferior wall consistent with previous infarct, but no evidence of ischemia. He also has a longstanding history of paroxysmal atrial fibrillation. He had been on sotalol in the past and ultimately was placed on amiodarone. In 07/2016 when he was seen in the office, he continued to be on amiodarone 200 daily. However, when seen in 10/2016, that was not listed amongst his medications. Mr. Jiménez thinks that this was discontinued 5 or 6 months ago due to possible interaction with his diabetes medications. He now is admitted with COPD exacerbation. He uses oxygen at night. He was found to be tachycardic with the heart rate in the 140-150 range throughout his hospital stay until just recently. He has gone back to a sinus rhythm with very frequent PACs. From the surface EKG, it appears that he was in an atypical flutter. He smoked 1 pack per day, but stopped on 01/06/2017. He denies any chest discomfort, but does feel his heart is beating rapidly. PAST MEDICAL HISTORY: Paroxysmal atrial fibrillation and atrial flutter, diabetes, hypertension, hypercholesterolemia, COPD. OPERATIONS: ORIF of left leg, stent placement in 1999, left hand surgery with drainage of an abscess for cellulitis. MEDICATIONS: At home include Proventil 1 puff p.r.n., aspirin 81 daily, warfarin, atorvastatin 20 at bedtime, Symbicort 2 puffs b.i.d., Glucotrol 5 mg at bedtime, lisinopril 2.5 mg daily, metformin 500 mg b.i.d., metoprolol 50 b.i.d., multivitamin, prednisone 20 mg q.a.m., rifampin 150 b.i.d., Bactrim 1 b.i.d. ALLERGIES: None. SOCIAL HISTORY: He smoked 1 pack per day, but stopped 7 weeks ago. He does not drink. REVIEW OF SYSTEMS: A 12-point review of systems is otherwise unremarkable. PHYSICAL EXAMINATION: VITAL SIGNS: 116/81, pulse of 80. HEENT: PERRL. NECK: Supple. LUNGS: Chest reveals expiratory wheezing. CARDIAC: S1 and S2 are normal, without any S3, S4 or murmurs. ABDOMEN: Normal bowel sounds without tenderness or organomegaly. EXTREMITIES: Revealed no clubbing, cyanosis or edema. NEUROLOGIC: Grossly intact. SKIN: Warm and dry. LABORATORY: Admission EKG revealed a rate of 150 per minute with probable atypical flutter, nonspecific ST and T-wave changes. Hemoglobin 11.7, hematocrit 35.3, white count 9300, platelets 172,000. INR 4.7. A pH of 7.44, pCO2 of 31.6, and pO2 of 79.2. Sodium 135, potassium 4.5, chloride 105, carbon dioxide 21, BUN 21, creatinine 0.98. Troponin I is unremarkable. IMPRESSION: 1. Paroxysmal atrial fibrillation and atrial flutter, treated with amiodarone previously. It is unclear when this was discontinued, but probably was 5 or 6 months ago by the primary physician. 2. Coronary artery disease status post stent placement in the right coronary artery with continued patency in 05/2003. He had a small fixed inferior wall defect on Cardiolite in 08/2016. 3. Chronic obstructive pulmonary disease. 4. Former smoker. 5. Hypertension. 6. Hypercholesterolemia. PLAN: Mr. Jiménez will be restarted on p.o. amiodarone since he is back in sinus rhythm at the present time. If he does convert back to his atrial flutter, then he can be switched to IV. MTDD
[2017-03-01] MEDS: Atorvastatin Calcium 20 MG TAB PO SCH (20:40)
[2017-03-01] MEDS ORDERED: Amiodarone 200 MG TAB PO SCH (21:00)
[2017-03-02] MEDS: Amiodarone HCl 450 MG in Dextrose 5% in Water 250 ML IVPB SCH ×4 (03:30→18:32)
[2017-03-02] MEDS ORDERED: HYDROcodone/Acetaminophen 5/325 mg Tablet PO PRN (07:54)
[2017-03-02] MEDS: Mometasone/Formoterol 120 PUFF INHALER INH SCH ×2 (08:02→19:01)
--- NOTE | 2017-03-02 08:06 | PDOC.FM ---
- Subjective Subjective: The patient reports that he has continued to feel his heart racing all night. He is starting to feel anxious as a result of this. He also reports continued back pain and states that it is not in the same area as his back surgery, but it is in his upper back and hurts worse when he takes a deep breath. He wasn't able to sleep well last night because the pain and his heart racing kept waking him up. He denies any chest pain. His breathing he reports is about the same as it was yesterday. - Objective MAR Reviewed: Yes Vital Signs & Weight: Vital Signs (12 hours) Temp Pulse Resp BP Pulse Ox 03/02/17 08:01 90 L 03/02/17 07:30 97.8 F 136 H 22 H 145/87 H 92 L 03/02/17 04:00 97.5 F L 133 H 20 93 L 03/02/17 02:50 95 03/02/17 01:45 130 H 18 93 L 03/02/17 00:00 98.5 F 129 H 20 127/74 95 03/01/17 23:03 132 H 22 H 95 Weight Weight 77.973 kg I&O: 03/01/17 03/02/17 03/03/17 06:59 06:59 06:59 Intake Total 1090 1860 Output Total 1250 Balance 1090 610 Result Diagrams: 03/01/17 04:56 03/01/17 04:56 <Nancy Kemp - Last Filed: 03/02/17 08:02> - Objective Vital Signs & Weight: Vital Signs (12 hours) Temp Pulse Resp BP Pulse Ox 03/02/17 08:01 90 L 03/02/17 07:30 97.8 F 136 H 22 H 145/87 H 92 L 03/02/17 04:00 97.5 F L 133 H 20 93 L 03/02/17 02:50 95 03/02/17 01:45 130 H 18 93 L 03/02/17 00:00 98.5 F 129 H 20 127/74 95 03/01/17 23:03 132 H 22 H 95 Weight Admit Weight 77.252 kg Weight 77.973 kg I&O: 03/01/17 03/02/17 03/03/17 06:59 06:59 06:59 Intake Total 1090 1860 Output Total 1250 Balance 1090 610 Result Diagrams: 03/01/17 04:56 03/01/17 04:56 <Arturo Jara - Last Filed: 03/02/17 10:48> Phys Exam - Physical Examination Constitutional: NAD HEENT: moist MMs Respiratory: no wheezing decreased air movement Cardiovascular: no significant murmur, no rub tachycardic, regular rhythm Gastrointestinal: soft, non-tender, no distention, positive bowel sounds Musculoskeletal: no edema, pulses present Neurological: non-focal, moves all 4 limbs Psychiatric: normal affect, A&O x 3 <Nancy Kemp - Last Filed: 03/02/17 08:02> Dx/Plan (1) Acute and chronic respiratory failure with hypoxia Code(s): J96.21 - ACUTE AND CHRONIC RESPIRATORY FAILURE WITH HYPOXIA Status: Acute Plan: Xxkxy-ji-Egsxyos respiratory failure 2/2 COPD exacerbation Patient not on O2 at home, now requiring 2L O2 -O2 prn, Wean as tolerated -Duonebs -Prednisone -CPAP at night per patients home regimen for NURY (2) Sinus tachycardia Code(s): R00.0 - TACHYCARDIA, UNSPECIFIED Status: Resolved Plan: Patient having sinus tachycardia to 130s-140s that has not been relieved by metoprolol. He has been in this rhythm on tele since arrival. Converted to NSR and then to atrial flutter -Trops were negative -CTA negative -No signs of infection, patient is s/p several fluid boluses -Consult cards (3) Atrial flutter with rapid ventricular response Code(s): I48.92 - UNSPECIFIED ATRIAL FLUTTER Status: Acute Plan: Patient has been in a flutter with RVR with rate in 130s-140s -Dr. Bundy with Cards has been consulted -Amiodarone gtt -Monitor on tele -Continue home metoprolol (4) Back pain Code(s): M54.9 - DORSALGIA, UNSPECIFIED Status: Acute QualifierTitle: Back pain location: thoracic back pain Chronicity: acute Back pain laterality: midline Qualified Code(s): M54.6 - Pain in thoracic spine Plan: Patient has back pain that started Wednesday when he bent down to pick something up. It's in his thoracic spine and he has point tenderness on the midline. The pain is worse with taking deep breaths or movements. -[place] for pain -Thoracic Xray (5) COPD exacerbation Code(s): J44.1 - CHRONIC OBSTRUCTIVE PULMONARY DISEASE W (ACUTE) EXACERBATION Status: Acute Plan: COPD exacerbation -Prednisone -Levaquin -Duonebs -O2 prn -Monitor on tele (6) CAD (coronary artery disease) Code(s): I25.10 - ATHSCL HEART DISEASE OF [place] CORONARY ARTERY W/O ANG PCTRS Status: Acute QualifierTitle: Coronary Disease-Associated Artery/Lesion type: [place] artery [place] vs. transplanted heart: [place] heart Associated angina: with unspecified angina Qualified Code(s): I25.119 - Atherosclerotic heart disease of [place] coronary artery with unspecified angina pectoris Plan: Patient has h/o CAD s/p stent. Dr. Vick is tankerman -Cont home meds (7) Atrial fibrillation Code(s): I48.91 - UNSPECIFIED ATRIAL FIBRILLATION Status: Chronic QualifierTitle: Atrial fibrillation type: paroxysmal Qualified Code(s): I48.0 - Paroxysmal atrial fibrillation Plan: On Warfarin INR is supratheraputic -Will hold 3-4 doses, and recheck (8) Diabetes type 2, controlled Code(s): E11.9 - TYPE 2 DIABETES MELLITUS WITHOUT COMPLICATIONS Status: Chronic QualifierTitle: Diabetes mellitus complication status: with unspecified complications Diabetes mellitus ad terminal makeup operator insulin use: without chcf use Qualified Code(s): E11.8 - Type 2 diabetes mellitus with unspecified complications Plan: Continue metformin Accuchecks Diabetic Diet (9) Hypertension Code(s): I10 - ESSENTIAL (PRIMARY) HYPERTENSION Status: Chronic QualifierTitle: Hypertension type: essential hypertension Qualified Code( s): I10 - Essential (primary) hypertension Plan: Continue home meds <Nancy Kemp - Last Filed: 03/02/17 08:02> Attending Addendum - Attending Addendum I personally evaluated the patient and discussed the management with Dr. Kemp. I agree with the History, Examination, Assessment and Plan documented above with any addition or exceptions noted below. Patient has been started on IV amiodarone therapy due to his persistent Aflutter with RVR. His FL is currently in the 120s. He continues to be symptomatic. Further mgmt per cardiology, consider Diltiazem therapy to get pulse rate down until he converts. COPD is stable, he has less wheezing though is still dyspneic, though some of this could be related to his Aflutter. Due to this recent onset of back pain for which he continues to complain of, we will obtain T spine imaging as he reported this pain started after bending over to coal picker something. Further mgmt per results of XR. <Arturo Jara - Last Filed: 03/02/17 10:48>
[2017-03-02] MEDS: Famotidine 20 MG TAB PO SCH (08:33)
[2017-03-02] MEDS: predniSONE 20 MG TAB PO SCH (08:33)
[2017-03-02] MEDS: glipiZIDE 5 MG TAB PO SCH (08:33)
[2017-03-02] MEDS: metFORMIN 500 MG TAB PO SCH ×2 (08:33→16:54)
[2017-03-02] MEDS: Multivit, Therapeutic 1 TAB PO SCH (08:34)
[2017-03-02] MEDS: Metoprolol Tartrate 50 MG TAB PO SCH ×2 (08:34→21:02)
[2017-03-02] MEDS: Sulfameth/Trimethoprim DS 800-160mg TAB PO SCH ×2 (08:36→21:02)
[2017-03-02] MEDS: Rifampin 150 MG CAP PO SCH ×2 (10:03→21:02)
--- NOTE | 2017-03-02 10:24 | RAD ---
THREE VIEWS THORACIC SPINE: Date: 03-02-17 History: Back pain with point tenderness. Comparison: 05-24-16 FINDINGS: There are mild vertebroplasty changes seen involving the T9 vertebral body. The remainder of the vert ebral body heights appear within normal limits and unchanged from the prior exam. There are prominent osteophytes seen in the lower thoracic as well as visualized upper lumbar spine. No obvious fracture or subluxation is seen. Vascular calcifications are seen in the thoracic aorta. No other interval ch dominga. IMPRESSION: 1. Degenerative changes in the thoracic spine with interval vertebroplasty changes involving the T9 v ertebral body. 2. No acute findings seen involving the thoracic spine. POS: [facility]
[2017-03-02] MEDS ORDERED: Melatonin 3 MG TAB PO PRN (10:59)
[2017-03-02] MEDS: Lisinopril 10 MG TAB PO SCH (11:42)
[2017-03-02] MEDS: Ondansetron ODT 4 MG TAB PO PRN (11:46)
[2017-03-02] MEDS: Cyclobenzaprine 10 MG TAB PO PRN ×2 (11:53→21:02)
[2017-03-02] MEDS ORDERED: Digoxin 0.5 MG/2 ML AMP SLOW IVP SCH (14:30)
[2017-03-02] MEDS ORDERED: Metoprolol Tartrate 5 MG/5 ML VIAL IVP SCH (16:30)
[2017-03-02] MEDS: Atorvastatin Calcium 20 MG TAB PO SCH (21:01)
[2017-03-03 05:20] LABS: Prothrombin Time 57.8 SEC (12.0-14.7)
[2017-03-03 05:31] LABS: Anion Gap 12 mmol/L (10-20); BUN (Urea Nitrogen) 19 mg/dL (8.4-25.7); Calc. Creatinine Clearance 82 mL/min (70-130); Calcium 9.3 mg/dL (7.8-10.44); Carbon Dioxide 23 mmol/L (23-31); Chloride 105 mmol/L (98-107); Estimated GFR-MDRD 85; Glucose 85 mg/dL (83-110); Potassium 4.1 mmol/L (3.5-5.1); Sodium 136 mmol/L (136-145)
[2017-03-03 05:38] LABS: INR-International Normal Ratio 6.1
[2017-03-03] MEDS: Mometasone/Formoterol 120 PUFF INHALER INH SCH ×2 (07:41→18:37)
--- NOTE | 2017-03-03 08:28 | PDOC.FM ---
- Subjective Subjective: Patient reports that he is doing much better today. He feels like he can breathe more comfortably. He still feels his heart racing, denies any chest pain. He reports that he slept much better yesterday. - Objective MAR Reviewed: Yes Vital Signs & Weight: Vital Signs (12 hours) Temp Pulse Resp BP Pulse Ox 03/03/17 07:41 136 H 20 03/03/17 07:32 98 03/03/17 07:30 98.3 F 136 H 20 97 03/03/17 04:00 98.2 F 130 H 18 145/92 H 97 03/03/17 02:47 132 H 24 H 94 L 03/03/17 00:00 136 H 138/92 H 03/02/17 22:48 135 H 20 97 Weight Admit Weight 77.252 kg Weight 77.973 kg I&O: 03/02/17 03/03/17 03/04/17 06:59 06:59 06:59 Intake Total 1860 607 Output Total 1250 650 Balance 610 -43 Result Diagrams: 03/01/17 04:56 03/03/17 04:42 <Nancy Kemp - Last Filed: 03/03/17 08:26> - Objective Vital Signs & Weight: Vital Signs (12 hours) Temp Pulse Resp BP Pulse Ox 03/03/17 07:41 136 H 20 03/03/17 07:32 98 03/03/17 07:30 98.3 F 136 H 20 97 03/03/17 04:00 98.2 F 130 H 18 145/92 H 97 03/03/17 02:47 132 H 24 H 94 L 03/03/17 00:00 136 H 138/92 H 03/02/17 22:48 135 H 20 97 Weight Admit Weight 77.252 kg Weight 77.973 kg I&O: 03/02/17 03/03/17 03/04/17 06:59 06:59 06:59 Intake Total 1860 607 Output Total 1250 650 Balance 610 -43 Result Diagrams: 03/01/17 04:56 03/03/17 04:42 <Arturo Jara - Last Filed: 03/03/17 10:14> Phys Exam - Physical Examination Constitutional: NAD HEENT: moist MMs Respiratory: no wheezing, no rales, no rhonchi decreased breath sounds bilaterally Cardiovascular: RRR, no significant murmur, no rub Gastrointestinal: soft, non-tender, no distention, positive bowel sounds Musculoskeletal: no edema, pulses present Neurological: non-focal, moves all 4 limbs Psychiatric: normal affect, A&O x 3 <Nancy Kemp - Last Filed: 03/03/17 08:26> Dx/Plan (1) Acute and chronic respiratory failure with hypoxia Code(s): J96.21 - ACUTE AND CHRONIC RESPIRATORY FAILURE WITH HYPOXIA Status: Acute Plan: Fjbee-jr-Xhyzgnt respiratory failure 2/2 COPD exacerbation Patient not on O2 at home, now requiring 2L O2 -O2 prn, Wean as tolerated -Duonebs -Prednisone -CPAP at night per patients home regimen for NURY (2) Sinus tachycardia Code(s): R00.0 - TACHYCARDIA, UNSPECIFIED Status: Resolved Plan: Patient having sinus tachycardia to 130s-140s that has not been relieved by metoprolol. He has been in this rhythm on tele since arrival. Converted to NSR and then to atrial flutter -Trops were negative -CTA negative -No signs of infection, patient is s/p several fluid boluses -Consulted Gregor with cardiology, appreciate recs (3) Atrial flutter with rapid ventricular response Code(s): I48.92 - UNSPECIFIED ATRIAL FLUTTER Status: Acute Plan: Patient has been in a flutter with RVR with rate in 130s-140s -Dr. Bunyd with Cards has been consulted, appreciate recs -Dr. Jasso with EP has been consulted, appreciate recs -Amiodarone -Monitor on tele -Continue home metoprolol (4) Back pain Code(s): M54.9 - DORSALGIA, UNSPECIFIED Status: Acute QualifierTitle: Back pain location: thoracic back pain Chronicity: acute Back pain laterality: midline Qualified Code(s): M54.6 - Pain in thoracic spine Plan: Patient has back pain that started Wednesday when he bent down to pick something up. It's in his thoracic spine and he has point tenderness on the midline. The pain is worse with taking deep breaths or movements. He has a h/o recent surgery in that location. Thoracic x-ray showed chronic arthritic changes and vertebroplasty involving T9 , but no acute findings -[place] for pain -Flexeril for muscle spasms (5) COPD exacerbation Code(s): J44.1 - CHRONIC OBSTRUCTIVE PULMONARY DISEASE W (ACUTE) EXACERBATION Status: Acute Plan: COPD exacerbation -Prednisone -Levaquin -Duonebs -O2 prn -Monitor on tele (6) CAD (coronary artery disease) Code(s): I25.10 - ATHSCL HEART DISEASE OF [place] CORONARY ARTERY W/O ANG PCTRS Status: Acute QualifierTitle: Coronary Disease-Associated Artery/Lesion type: [place] artery [place] vs. transplanted heart: [place] heart Associated angina: with unspecified angina Qualified Code(s): I25.119 - Atherosclerotic heart disease of [place] coronary artery with unspecified angina pectoris Plan: Patient has h/o CAD s/p stent. Dr. Vick is field clerk -Cont home meds (7) Atrial fibrillation Code(s): I48.91 - UNSPECIFIED ATRIAL FIBRILLATION Status: Chronic QualifierTitle: Atrial fibrillation type: paroxysmal Qualified Code(s): I48.0 - Paroxysmal atrial fibrillation Plan: On Warfarin INR is supratheraputic -Will hold 3-4 doses, and recheck (8) Diabetes type 2, controlled Code(s): E11.9 - TYPE 2 DIABETES MELLITUS WITHOUT COMPLICATIONS Status: Chronic QualifierTitle: Diabetes mellitus complication status: with unspecified complications Diabetes mellitus long term care social worker insulin use: without prison use Qualified Code(s): E11.8 - Type 2 diabetes mellitus with unspecified complications Plan: Continue metformin Accuchecks Diabetic Diet (9) Hypertension Code(s): I10 - ESSENTIAL (PRIMARY) HYPERTENSION Status: Chronic QualifierTitle: Hypertension type: essential hypertension Qualified Code( s): I10 - Essential (primary) hypertension Plan: Continue home meds <Nancy Kemp - Last Filed: 03/03/17 08:26> Attending Addendum - Attending Addendum I personally evaluated the patient and discussed the management with Dr. Kemp. I agree with the History, Examination, Assessment and Plan documented above with any addition or exceptions noted below. Patient with improvement in respiratory status after receiving breathing treatment this morning. He feels well, and has been ambulating down the [place]. Continue Levaquin and steroids. He continues to be persistently tachycardic, despite Amiodarone, IV metoprolol, and now 1 dose of IV diltiazem. Cardiology on case and has consulted EP. Patient continues to be symptomatic with palpitations but has no evidence of ischemia. Await further cardiology/EP recs. His INR continues to be prolonged despite holding Coumadin. This is likely due to him being on Bactrim as outpatient that prolonged INR, now not improving. If EP decides for intravascular intervention, patient may need FFP to get INR appropriate. Avoid Vitamin K if possible. <Arturo Jara - Last Filed: 03/03/17 10:14>
[2017-03-03] MEDS: Famotidine 20 MG TAB PO SCH (08:56)
[2017-03-03] MEDS: Metoprolol Tartrate 50 MG TAB PO SCH ×2 (08:56→20:28)
[2017-03-03] MEDS: predniSONE 20 MG TAB PO SCH (08:56)
[2017-03-03] MEDS: Sulfameth/Trimethoprim DS 800-160mg TAB PO SCH ×2 (08:56→20:29)
[2017-03-03] MEDS: Rifampin 150 MG CAP PO SCH ×2 (08:59→20:28)
--- NOTE | 2017-03-03 10:24 | PRG ---
DATE OF SERVICE: 03/03/2017 SUBJECTIVE: Mr. Jiménez is short of breath. He remains in atrial flutter with a rapid rate. PHYSICAL EXAMINATION: VITAL SIGNS: His pulse is 135 and blood pressure 160/100. LUNGS: Distant. CARDIAC: Tachycardic. ABDOMEN: Soft, nontender. EXTREMITIES: No edema. ASSESSMENT: 1. Atrial flutter. 2. Chronic obstructive pulmonary disease. 3. Coronary artery disease. PLAN: 1. Electrophysiology has been consulted about possible ablation. 2. Coumadin is on hold since admission, but INR is supratherapeutic. Did receive some antibiotics. He has not received Coumadin since he has been in the hospital from when I was told.
[2017-03-03 11:31] LABS: Digoxin 0.63 ng/mL (0.8-2.0)
[2017-03-03] MEDS: Lisinopril 10 MG TAB PO SCH (12:23)
[2017-03-03] MEDS: metFORMIN 500 MG TAB PO SCH ×2 (15:24→16:04)
[2017-03-03] MEDS: Multivit, Therapeutic 1 TAB PO SCH (16:03)
[2017-03-03] MEDS: glipiZIDE 5 MG TAB PO SCH (16:04)
[2017-03-03] MEDS ORDERED: Dronedarone HCl 400 MG TAB PO SCH (18:15)
[2017-03-03] MEDS: Atorvastatin Calcium 20 MG TAB PO SCH (20:28)
[2017-03-04] MEDS: Diltiazem 125 MG in Sodium Chloride 0.9% 100 ML IVPB SCH ×2 (03:57→15:55)
[2017-03-04 05:18] LABS: Prothrombin Time 44.3 SEC (12.0-14.7)
[2017-03-04 05:19] LABS: INR-International Normal Ratio 4.4
--- NOTE | 2017-03-04 06:41 | PDOC.FM ---
- Subjective Subjective: Patient continues to endorse some SOB. Patient went into Afib with RVR overnight and has had a pulse in the 130's since last night. He was put on Diltiazem drip. Patient endorses orthopnea. - Objective MAR Reviewed: Yes Vital Signs & Weight: Vital Signs (12 hours) Temp Pulse Resp BP Pulse Ox 03/04/17 04:00 97.9 F 131 H 16 122/75 94 L 03/04/17 02:14 87 16 95 03/03/17 22:22 109 H 16 94 L 03/03/17 20:00 97.9 F 110 H 20 129/83 95 Weight Admit Weight 77.252 kg Weight 78.018 kg I&O: 03/02/17 03/03/17 03/04/17 06:59 06:59 06:59 Intake Total 1860 607 780 Output Total 1250 650 950 Balance 610 -43 -170 Result Diagrams: 03/01/17 04:56 03/03/17 04:42 Phys Exam - Physical Examination Constitutional: NAD anxious HEENT: PERRLA Respiratory: no wheezing Decreased breath sounds throughout, L>R tachycardic, irregularly irregular Gastrointestinal: soft, non-tender Musculoskeletal: pulses present Neurological: moves all 4 limbs Psychiatric: A&O x 3 Deviation from normal: anxious Dx/Plan (1) Acute and chronic respiratory failure with hypoxia Code(s): J96.21 - ACUTE AND CHRONIC RESPIRATORY FAILURE WITH HYPOXIA Status: Acute (2) Atrial flutter with rapid ventricular response Code(s): I48.92 - UNSPECIFIED ATRIAL FLUTTER Status: Acute (3) COPD exacerbation Code(s): J44.1 - CHRONIC OBSTRUCTIVE PULMONARY DISEASE W (ACUTE) EXACERBATION Status: Acute (4) Normocytic anemia Code(s): D64.9 - ANEMIA, UNSPECIFIED Status: Acute (5) Cellulitis of hand, left Code(s): L03.114 - CELLULITIS OF LEFT UPPER LIMB Status: Acute (6) Atrial fibrillation Code(s): I48.91 - UNSPECIFIED ATRIAL FIBRILLATION Status: Chronic Qualifiers: Atrial fibrillation type: paroxysmal Qualified Code(s): I48.0 - Paroxysmal atrial fibrillation (7) Chronic anticoagulation Code(s): Z79.01 - SHIRT OPERATOR (CURRENT) USE OF ANTICOAGULANTS Status: Chronic (8) Diabetes type 2, controlled Code(s): E11.9 - TYPE 2 DIABETES MELLITUS WITHOUT COMPLICATIONS Status: Chronic Qualifiers: Diabetes mellitus complication status: with unspecified complications Diabetes mellitus snf insulin use: without termite renewal inspector use Qualified Code( s): E11.8 - Type 2 diabetes mellitus with unspecified complications (9) Dyslipidemia Code(s): E78.5 - HYPERLIPIDEMIA, UNSPECIFIED Status: Chronic (10) Hypertension Code(s): I10 - ESSENTIAL (PRIMARY) HYPERTENSION Status: Chronic Qualifiers: Hypertension type: essential hypertension Qualified Code(s): I10 - Essential (primary) hypertension (11) Tobacco abuse Code(s): Z72.0 - TOBACCO USE Status: Chronic - Plan Plan: Hpbex-lc-Appaaav respiratory failure 2/2 COPD exacerbation -Patient not on O2 at home, now requiring 2L O2 -Patient reports increased SOB and decreased lung sounds on exam, repeat CXR with bilateral pleural effusions. Give trial dose of Lasix. -O2 prn, Wean as tolerated -Duonebs -Prednisone -CPAP at night per patients home regimen for NURY Afib with RVR - Patient converted from sinus tachycardia to Afib with RVR overnight. Has converted in and out of Aflutter and Afib throughout his stay. Was to get an ablation yesterday when he converted to NSR. - Rate 130's - On Metoprolol and Diltiazem at 10 - Trops were negative - CTA negative - No signs of infection, patient is s/p several fluid boluses - Consulted Gregor with cardiology, appreciate recs - continue tele monitoring COPD exacerbation -Prednisone -Levaquin -Duonebs -Dulera -O2 prn -Monitor on tele Back Pain, resolved - Pain has resolved, continue symptomatic treatment. - Thoracic x-ray showed chronic arthritic changes and vertebroplasty involving T9, but no acute findings - [place] for pain - Flexeril for muscle spasms CAD s/p Stent - Dr. Vick is skin pass operator - Cont home meds Paroxysmal Afib - On Warfarin - INR is supratheraputic - Will hold 3-4 doses, and recheck T2DM - Stable - Continue metformin - Accuchecks - Diabetic Diet HTN Continue home meds
--- NOTE | 2017-03-04 06:58 | CON ---
DATE OF CONSULTATION: 03/03/2017 ELECTROPHYSIOLOGY CONSULTATION REPORT REFERRING PHYSICIAN: Dorcas Howard I am seeing Mr. Jiménez at our [facility] telemetry floor as an electrophysiology school plant consultant and his problems are: 1. History of paroxysmal atrial arrhythmias. A. History of paroxysmal atrial fibrillation suppressed with amiodarone. In the past, he has been off of it though in 10/2016. B. History of atrial flutter ablation in the past at [facility] in 2009. 2. Pulmonary disease. A. Current admission with chronic obstructive pulmonary disease exacerbation requiring prednisone nebulizers, oxygen. 3. History of coronary artery disease, history of percutaneous coronary intervention in the past. B. Initial troponin 0.011 on 03/01/2017. 4. Left ventricular dysfunction. A. Left ventricular ejection fraction 40% to 45% on echocardiogram on 2016, previously normal LV function in 2003 and 50% on stress test in 2009. 5. Coronary artery risk factors. A. Diabetes. B. Hypertension. C. History of smoking. ALLERGIES: None noted. MEDICATIONS AT HOME: Included Symbicort, cetirizine, Lipitor, metformin, glipizide, lisinopril, aspirin, metoprolol, multivitamins, albuterol, warfarin, p.r.n. sulfamethoxazole, rifampin, prednisone. SUBJECTIVE: Mr. Jiménez is here with chronic obstructive pulmonary disease exacerbation, respiratory failure since the . He has been noted to be in atrial flutter with rapid rates. Eventually, he was reloaded with IV amiodarone. His rate stabilized with 2:1 atrial flutter with rapid rhythm, but eventually today, he spontaneously converted back to sinus rhythm, since he is feeling better. He denies passing out, no true angina-like symptoms. Dyspnea was his main presenting symptom. He has no orthopnea or PND since fluid overload. No lower extremity edema either. No stroke-like symptoms or bleeding issues. Rest of 12-point review of system is otherwise unremarkable. PAST MEDICAL HISTORY: As above and he has had history of paroxysmal atrial fibrillation suppressed with amiodarone in the past, which was stopped though sometimes in before October. He is on warfarin with markedly elevated INRs today. The patient also has history of hypertension, diabetes, COPD. PAST SURGICAL HISTORY: Significant for left leg surgery for fracture, prior cardiac catheterization in 11/1997 with stenting amd had surgery in January 2017. SOCIAL HISTORY: The patient is an ex-smoker. Denies ETOH or drug use. Smoked 1 pack per year for past 50 years, quit just 6 weeks ago. FAMILY HISTORY: Noncontributory. OBJECTIVE DATA: VITAL SIGNS: Blood pressure is 137/75, heart rate 78, respirations 18, temperature 97.9 degrees Fahrenheit. GENERAL: He is alert and oriented man in no apparent distress. NECK: Supple. Jugular veins not distended. CHEST: Coarse with decreased air entry. Few crackles are heard. HEART: No murmur or gallop. ABDOMEN: Benign. Bowel sounds positive. EXTREMITIES: Lower extremities without edema, clubbing or cyanosis. Pulses are adequate. NEUROLOGIC: The patient is nonfocal. MUSCULOSKELETAL: Without joint swelling or deformities. SKIN: Without rash. DATABASE: The EKG is reviewed, initially reveals atrial flutter, possibly atypical atrial flutter is seen. Subsequent EKG shows continued atrial flutter up until this morning about 11 when he spontaneously converted to sinus rhythm with occasional PACs. LABORATORY DATA: Sodium 136, potassium 4.1, BUN is 9, creatinine is 0.88. The troponin I is less than 0.11, CK-MB 2.6. White count is 9.3, hemoglobin 9.7, platelet count is 172. INR is 4.7 on , about 6.1 on today. Chest x- ray on shows no acute intrathoracic disease. ASSESSMENT AND PLAN: Mr. Jiménez is a pleasant 71-year-old man with prior history of coronary artery disease with remote stenting previously normal, but now mild to moderate decreased left ventricular function at 40% to 45% left ventricular ejection fraction who presented with atrial flutter, appears to be atypical with rapid rates. Of note, he also had prior cavotricuspid isthmus ablation. We discussed the etiology of his atrial flutter and treatment options. I feel he is adequately loaded with amiodarone and his rhythm spontaneously converted back to sinus rhythm. We did discuss the option of ablation as well, although I suspect he might need a complex pulmonary venous isolation and left atrial ablation as well. At this point, he appears to be somewhat still poorly controlled from a pulmonary status. Once recovered completely, we might be able to consider getting him undergoing a procedure in the future. For now, we can continue the amiodarone. Once LV function improved, we could also consider switching him to Mult[place] as well. He has supra-therapeutic INR currently which needs to be adjusted. For now, we will hold off on ablation procedure while I see him as an outpatient for consideration of redo CTI/pulmonary venous isolation procedure in the future. Thank you again for allowing me to participate in the care of this patient. MARY
[2017-03-04 07:04] LABS: Iron 47 ug/dL (65-175); Iron Binding Capacity, Total 225 mcg/dL (261-462)
[2017-03-04] MEDS: Mometasone/Formoterol 120 PUFF INHALER INH SCH ×2 (07:27→18:28)
--- NOTE | 2017-03-04 07:33 | EKG ---
Test Reason : PREOP CARDIOVERSION Blood Pressure : / mmHG Vent. Rate : 094 BPM Atrial Rate : 094 BPM P-R Int : 162 ms QRS Dur : 066 ms QT Int : 364 ms P-R-T Axes : 042 066 066 degrees QTc Int : 455 ms Sinus rhythm with Premature atrial complexes Nonspecific ST abnormality Atrial abnormality Abnormal ECG When compared with ECG of 28-FEB-2017 17:00, (Unconfirmed) Premature atrial complexes are now Present Vent. rate has decreased BY 52 BPM Nonspecific T wave abnormality, improved in Inferior leads Confirmed by DR. Carl BARAJAS ([id number]) on 03/04/2017 7:32:54 AM Referred By: RADHA Confirmed By:DR. Carl BARAJAS
[2017-03-04] MEDS: Multivit, Therapeutic 1 TAB PO SCH (09:10)
[2017-03-04] MEDS: glipiZIDE 5 MG TAB PO SCH (09:10)
[2017-03-04] MEDS: Metoprolol Tartrate 50 MG TAB PO SCH ×2 (09:11→21:08)
[2017-03-04] MEDS: Rifampin 150 MG CAP PO SCH ×2 (09:11→21:09)
[2017-03-04] MEDS: Dronedarone HCl 400 MG TAB PO SCH ×2 (09:11→16:17)
[2017-03-04] MEDS: metFORMIN 500 MG TAB PO SCH ×2 (09:11→16:17)
[2017-03-04] MEDS: Famotidine 20 MG TAB PO SCH (09:11)
[2017-03-04] MEDS: Sulfameth/Trimethoprim DS 800-160mg TAB PO SCH ×2 (09:11→21:08)
[2017-03-04] MEDS: predniSONE 20 MG TAB PO SCH (09:11)
--- NOTE | 2017-03-04 10:18 | RAD ---
PA AND LATERAL CHEST: INDICATIONS: Decreased breath sounds on the left. COMPARISON: Prior chest radiograph dated 02/28/2017. FINDINGS: Scarring within the right upper lobe is stable. No confluent air space opacity is evident. There ar e small bilateral pleural effusions. Heart size is within normal limits. No acute osseous abnormali ty is evident. IMPRESSION: 1. New small bilateral pleural effusions. 2. Heart size and pulmonary vasculature appear within normal limits. 3. Chronic lung changes are stable. 4. The vertebroplasty change at T9 is stable. POS: ISAIAS
[2017-03-04] MEDS: Lisinopril 10 MG TAB PO SCH (12:25)
[2017-03-04] MEDS ORDERED: Furosemide 20 MG/2 ML VIAL SLOW IVP SCH (13:00)
--- NOTE | 2017-03-04 14:40 | ADD-PRG ---
DATE OF SERVICE: 03/04/2017 This is an addendum to the note of Dr. Yandy Monte. Mr. Tab Jiménez is a pleasant 71-year-old white male patient with a history of COPD and heart failure. His last ejection fraction in March was 10% to 15%. He was admitted short of breath which was initially attributed to chronic obstructive pulmonary disease exacerbation. Repeat chest x-ray now reveals bilateral pleural effusions and he is still "short of breath." We will repeat his echo and administer intravenous Lasix as there is likely an element of heart failure and pulmonary congestion secondary to cardiac decompensation responsible for much of his symptomatology. In the event, he is in no distress. We will continue to treat both for COPD exacerbation and heart failure. CHAVEZD
--- NOTE | 2017-03-04 14:59 | ADD-PRG ---
DATE OF SERVICE: 03/04/2017 ADDENDUM This is an addendum to the note of Dr. Yandy Monte. SUBJECTIVE: Mr. Jiménez is a 71-year-old white male patient who was admitted with acute hypoxic respir atory failure due to COPD. He also had runs of atrial fibrillation flutter and is currently being ev aluated by the Cardiology Service for possible ablation. This morning, he is resting comfortably in no distress. He will continue to be followed by Dr. Bundy and Dr. Jasso.
[2017-03-04] MEDS: Atorvastatin Calcium 20 MG TAB PO SCH (21:09)
--- NOTE | 2017-03-04 22:44 | PRG ---
DATE OF SERVICE: 03/04/2017 SUBJECTIVE: Mr. Jiménez is feeling better today. His breathing has improved. OBJECTIVE: VITAL SIGNS: Blood pressure 117/60, pulse 98 sinus with PACs. LUNGS: Some expiratory wheezing, but better. CARDIAC: Normal S1, normal S2. ABDOMEN: Soft, nontender. EXTREMITIES: No edema. ASSESSMENT: 1. Atrial fibrillation, back in sinus rhythm. 2. Chronic obstructive pulmonary disease. PLAN: 1. Change to oral Cardizem tomorrow. 2. Continue Multaq. 3. Outpatient atrial flutter ablation.
--- NOTE | 2017-03-04 23:13 | PRG ---
DATE OF SERVICE: 03/04/2017 ELECTROPHYSIOLOGY FOLLOWUP NOTE SUBJECTIVE: Mr. Jiménez is doing well currently. On the other hand overnight, he did have other episo keisha of atrial flutter. The same morphology as before, but then it spontaneously resolved. OBJECTIVE DATA: VITAL SIGNS: Blood pressure is 122/64, heart rate is 79, respirations 26, temperature 97.8 degrees F ahrenheit. GENERAL: This is an alert and oriented man, in no apparent distress. NECK: Supple. Jugular veins are not distended. CHEST: Coarse without crackles. CARDIOVASCULAR: Heart sounds are regular to rate and rhythm. No murmur or gallop. ABDOMEN: Benign. Bowel sounds positive. EXTREMITIES: Lower extremities without edema, clubbing or cyanosis. DATABASE: The telemetry strips reviewed and have atrial flutter. Transient atrial flutter was noted as above. Overnight, he is back in sinus rhythm since then. ASSESSMENT AND PLAN: Mr. Jiménez is a pleasant 71-year-old man with history of chronic obstructive pul monary disease, paroxysmal atrial arrhythmias, LV dysfunction this admission severe rang e, though. He has been suppressed with amiodarone and now being transitioned to Multaq. At this point, I agree with the plan. Multaq seems to be helping him although in this early phase ahuja s not completely suppressed his arrhythmias. Continue Multaq to full loading. If symptomatic atrial flutter continues, we could consider radiofrequency ablation of this rhythm. I will plan to see him as an outpatient.
[2017-03-05] MEDS: Diltiazem 125 MG in Sodium Chloride 0.9% 100 ML IVPB SCH (02:49)
[2017-03-05 05:21] LABS: INR-International Normal Ratio 2.5; Prothrombin Time 27.5 SEC (12.0-14.7)
[2017-03-05] MEDS: Mometasone/Formoterol 120 PUFF INHALER INH SCH ×2 (08:10→19:27)
[2017-03-05] MEDS: glipiZIDE 5 MG TAB PO SCH (08:29)
[2017-03-05] MEDS: metFORMIN 500 MG TAB PO SCH ×2 (08:30→17:05)
[2017-03-05] MEDS: predniSONE 20 MG TAB PO SCH (08:30)
[2017-03-05] MEDS: Metoprolol Tartrate 50 MG TAB PO SCH (08:30)
[2017-03-05] MEDS: Sulfameth/Trimethoprim DS 800-160mg TAB PO SCH ×2 (08:30→20:51)
[2017-03-05] MEDS: Multivit, Therapeutic 1 TAB PO SCH (08:30)
[2017-03-05] MEDS: Famotidine 20 MG TAB PO SCH (08:30)
[2017-03-05] MEDS: Rifampin 150 MG CAP PO SCH ×2 (08:31→20:51)
[2017-03-05] MEDS: Dronedarone HCl 400 MG TAB PO SCH ×2 (08:31→17:05)
[2017-03-05] MEDS ORDERED: Diltiazem 125 MG in Sodium Chloride 0.9% 100 ML IVPB SCH (09:00)
--- NOTE | 2017-03-05 09:04 | PDOC.FM ---
- Subjective Subjective: Patient is feeling much better today after dose of Lasix yesterday. Is back in NSR with rate of 70-90's. No acute events overnight. Patient wants to go home. - Objective MAR Reviewed: Yes Vital Signs & Weight: Vital Signs (12 hours) Temp Pulse Resp BP Pulse Ox 03/05/17 08:12 94 L 03/05/17 08:10 80 20 94 L 03/05/17 07:15 97.5 F L 81 18 123/68 95 03/05/17 04:00 97.9 F 80 19 116/59 L 92 L 03/05/17 02:12 65 16 97 03/04/17 22:11 87 14 96 Weight Admit Weight 77.252 kg Weight 75.478 kg I&O: 03/04/17 03/05/17 03/06/17 06:59 06:59 06:59 Intake Total 780 1975 Output Total 950 2275 225 Balance -170 -300 -225 Result Diagrams: 03/01/17 04:56 03/03/17 04:42 Phys Exam - Physical Examination Constitutional: NAD HEENT: PERRLA, moist MMs, sclera anicteric Respiratory: no wheezing, no rales, no rhonchi distant lung sounds throughout, improved air movement Cardiovascular: RRR, no significant murmur Gastrointestinal: soft, non-tender trace edema Neurological: moves all 4 limbs Psychiatric: normal affect, A&O x 3 Dx/Plan (1) Acute and chronic respiratory failure with hypoxia Code(s): J96.21 - ACUTE AND CHRONIC RESPIRATORY FAILURE WITH HYPOXIA Status: Acute (2) Atrial flutter with rapid ventricular response Code(s): I48.92 - UNSPECIFIED ATRIAL FLUTTER Status: Acute (3) COPD exacerbation Code(s): J44.1 - CHRONIC OBSTRUCTIVE PULMONARY DISEASE W (ACUTE) EXACERBATION Status: Acute (4) Cellulitis of hand, left Code(s): L03.114 - CELLULITIS OF LEFT UPPER LIMB Status: Acute (5) Atrial fibrillation Code(s): I48.91 - UNSPECIFIED ATRIAL FIBRILLATION Status: Chronic Qualifiers: Atrial fibrillation type: paroxysmal Qualified Code(s): I48.0 - Paroxysmal atrial fibrillation (6) Chronic anticoagulation Code(s): Z79.01 - GEOCHEMIST (CURRENT) USE OF ANTICOAGULANTS Status: Chronic (7) Diabetes type 2, controlled Code(s): E11.9 - TYPE 2 DIABETES MELLITUS WITHOUT COMPLICATIONS Status: Chronic Qualifiers: Diabetes mellitus complication status: with unspecified complications Diabetes mellitus mcfp insulin use: without reel cart operator use Qualified Code( s): E11.8 - Type 2 diabetes mellitus with unspecified complications (8) Dyslipidemia Code(s): E78.5 - HYPERLIPIDEMIA, UNSPECIFIED Status: Chronic (9) Hypertension Code(s): I10 - ESSENTIAL (PRIMARY) HYPERTENSION Status: Chronic Qualifiers: Hypertension type: essential hypertension Qualified Code(s): I10 - Essential (primary) hypertension (10) Tobacco abuse Code(s): Z72.0 - TOBACCO USE Status: Chronic (11) Anemia of chronic disease Code(s): D63.8 - ANEMIA IN OTHER CHRONIC DISEASES CLASSIFIED ELSEWHERE Status : Acute - Plan Plan: [id number]-az-[id number] respiratory failure 2/2 COPD exacerbation -Patient not on O2 at home, now requiring 2L O2, will attempt to wean today -Duonebs -Prednisone -CPAP at night per patients home regimen for NURY Afib with RVR, resolved - NSR for >12h, will wean Diltiazem ggt and transition to oral Cardizem - Rate 70's - Likely need ablation outpatient - Consulted Gregor with cardiology, appreciate recs - continue tele monitoring COPD exacerbation -Prednisone -Levaquin -Duonebs -Dulera -O2 prn -Monitor on tele Anemia of Chronic Disease - Likley due to COPD - Iron studies confirm - Hg stable Back Pain, resolved - Pain has resolved, continue symptomatic treatment. 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
[2017-03-05] MEDS ORDERED: WARFARIN PO PRN (11:59)
[2017-03-05] MEDS: Lisinopril 10 MG TAB PO SCH (12:00)
--- NOTE | 2017-03-05 13:26 | ADD-PRG ---
DATE: 03/05/2017 This is an addendum to the note of Dr. Yandy Monte. Mr. Jiménez is currently in normal sinus rhythm and Cardiology has added Multaq to his regimen. His br eathing has improved. He will be discharged today to follow up for ablative therapy. He did respond well to a dose of Lasix yesterday suggesting some pulmonary congestion likely secondary to fluids an d his atrial fibrillation.
[2017-03-05] MEDS ORDERED: Warfarin Sodium 2.5 MG TAB PO SCH (17:00)
--- NOTE | 2017-03-05 17:38 | PRG ---
DATE OF SERVICE: 03/05/2017. SUBJECTIVE: Mr. Jiménez is doing well, no complaints. OBJECTIVE: VITAL SIGNS: Blood pressure 139/67, pulse 80, it is regular. LUNGS: Mild expiratory wheezing, but improved. CARDIAC: Normal S1 and S2. ABDOMEN: Soft, nontender. EXTREMITIES: There is no edema. ASSESSMENT: 1. Atrial fibrillation, currently in sinus rhythm. 2. Chronic obstructive pulmonary disease, improved. 3. History of atrial flutter. PLAN: 1. Okay to be released home tomorrow on diltiazem 240 mg a day, it is long-acting. 2. He is off the intravenous diltiazem. 3. Would reduce metoprolol down to 25 mg twice a day in view of the COPD. 4. Multaq 400 mg twice a day. Hopefully, the patient will be able to purchase this and is rather ex pensive. 5. He is going to stay on Coumadin. 6. He will follow up with Dr. Jasso about the possible atrial flutter ablation.
[2017-03-05] MEDS: Atorvastatin Calcium 20 MG TAB PO SCH (20:50)
[2017-03-05] MEDS: Metoprolol Tartrate 25 MG TAB PO SCH (20:51)
[2017-03-06] MEDS ORDERED: Sodium Chloride 0.9% 250 ML IV SCH (04:30)
[2017-03-06] MEDS ORDERED: Sodium Chloride 0.9% 250 ML 250 ML IVPB SCH (04:30)
[2017-03-06 05:29] LABS: INR-International Normal Ratio 1.6; Prothrombin Time 19.5 SEC (12.0-14.7)
[2017-03-06] MEDS: Mometasone/Formoterol 120 PUFF INHALER INH SCH ×2 (07:43→19:48)
--- NOTE | 2017-03-06 07:52 | PDOC.FM ---
- Subjective Subjective: CC: back pain HPI: Patient states he chronic back pain is bothering him this morning. Would like to get out of bed and walk but states PT has not been by to help him. Informed him he can sit in chair and walk with assistance. Denies palpitations or chest pain. - Objective MAR Reviewed: Yes Vital Signs & Weight: Vital Signs (12 hours) Temp Pulse Resp BP BP Pulse Ox 03/06/17 07:28 78 16 92 L 03/06/17 05:12 130 H 135/77 03/06/17 04:12 97.8 F 129 H 20 115/71 96 03/06/17 00:02 97.9 F 130 H 20 127/78 95 03/05/17 23:21 94 L 03/05/17 20:50 97.1 F L 100 20 93 L Weight Admit Weight 77.252 kg Weight 76.067 kg I&O: 03/05/17 03/06/17 03/07/17 06:59 06:59 06:59 Intake Total 1974 2239 Output Total 2275 1375 Balance -300 865 Result Diagrams: 03/01/17 04:56 03/03/17 04:42 EKG Reviewed by me: Yes (SR rate 120 to 130s ) <Felipe Moreno - Last Filed: 03/06/17 07:51> - Objective Vital Signs & Weight: Vital Signs (12 hours) Temp Pulse Resp BP BP Pulse Ox 03/06/17 13:01 135/77 03/06/17 12:00 98.2 F 137 H 20 121/77 94 L 03/06/17 10:57 136 H 22 H 94 L 03/06/17 08:00 97.9 F 136 H 20 125/62 95 03/06/17 07:28 78 16 92 L 03/06/17 05:12 130 H 135/77 03/06/17 04:12 97.8 F 129 H 20 115/71 96 Weight Admit Weight 77.252 kg Weight 76.067 kg I&O: 03/05/17 03/06/17 03/07/17 06:59 06:59 06:59 Intake Total 1974 2239 Output Total 2275 1375 Balance -300 865 Result Diagrams: 03/01/17 04:56 03/03/17 04:42 <Juan Pablo Solis - Last Filed: 03/06/17 15:16> Phys Exam - Physical Examination Constitutional: NAD HEENT: moist MMs, oral pharynx no lesions Respiratory: no wheezing, clear to auscultation bilateral Cardiovascular: no significant murmur, no rub tachycardica, regular Musculoskeletal: no edema Neurological: non-focal, moves all 4 limbs Psychiatric: normal affect, A&O x 3 Skin: no rash <Felipe Moreno - Last Filed: 03/06/17 07:51> Dx/Plan (1) Sinus tachycardia Code(s): R00.0 - TACHYCARDIA, UNSPECIFIED Status: Resolved Plan: received approximately 500mL fluid bolus over night and received early dose of diltiazem - consider additional 500 mL fluid bolus - will await cardiology recommendations - could be 2/2 atelectasis encourage ambulation, walking program consulted. (2) COPD exacerbation Code(s): J44.1 - CHRONIC OBSTRUCTIVE PULMONARY DISEASE W (ACUTE) EXACERBATION Status: Acute Plan: prednisone day 5 levaquin day 5 continue both for 7 day course. (3) Back pain Code(s): M54.9 - DORSALGIA, UNSPECIFIED Status: Acute QualifierTitle: Back pain location: thoracic back pain Chronicity: acute Back pain laterality: midline Qualified Code(s): M54.6 - Pain in thoracic spine Plan: PRNs available (4) Atrial fibrillation Code(s): I48.91 - UNSPECIFIED ATRIAL FIBRILLATION Status: Chronic QualifierTitle: Atrial fibrillation type: paroxysmal Qualified Code(s): I48.0 - Paroxysmal atrial fibrillation Plan: currently in SR. - oral diltiazem and multaq - cardiology has cleared for d/c with follow up with EP outpatient for ablation. (5) Hypertension Code(s): I10 - ESSENTIAL (PRIMARY) HYPERTENSION Status: Chronic QualifierTitle: Hypertension type: essential hypertension Qualified Code( s): I10 - Essential (primary) hypertension Plan: Stable (6) Cellulitis of hand, left Code(s): L03.114 - CELLULITIS OF LEFT UPPER LIMB Status: Acute Plan: continue outpatient bactrim <Felipe Moreno - Last Filed: 03/06/17 07:51> Attending Addendum - Attending Addendum I personally evaluated the patient and discussed the management with Dr. Moreno. I agree with the History, Examination, Assessment and Plan documented above with any addition or exceptions noted below. He feels ok but can tell HR is fast. Lungs: CTA, Cor: Tachy, no murmur or gallop. 12 Lead shows he has gone back into Atrial flutter. A: Paroxysmal Atrial Flutter and paroxysmal a-fib alternating with Sinus rhythm. P: Per Dr. Vick he will need to remain in hospital until Wednesday for RF Ablation. Continue Multaq and oral Diltiazem , and Lopressor 50 bid. [facility] <Juan Pablo Solis - Last Filed: 03/06/17 15:16>
[2017-03-06] MEDS: Sulfameth/Trimethoprim DS 800-160mg TAB PO SCH ×2 (09:18→20:48)
[2017-03-06] MEDS: Metoprolol Tartrate 25 MG TAB PO SCH ×2 (09:18→20:48)
[2017-03-06] MEDS: Dronedarone HCl 400 MG TAB PO SCH ×2 (09:18→17:28)
[2017-03-06] MEDS: Rifampin 150 MG CAP PO SCH ×2 (09:18→20:51)
[2017-03-06] MEDS: glipiZIDE 5 MG TAB PO SCH (09:18)
[2017-03-06] MEDS: metFORMIN 500 MG TAB PO SCH ×2 (09:18→17:28)
[2017-03-06] MEDS: predniSONE 20 MG TAB PO SCH (09:18)
[2017-03-06] MEDS: Famotidine 20 MG TAB PO SCH (09:18)
[2017-03-06] MEDS: Multivit, Therapeutic 1 TAB PO SCH (09:19)
[2017-03-06] MEDS ORDERED: Furosemide 40 MG/4 ML VIAL SLOW IVP SCH (10:30)
[2017-03-06] MEDS: Lisinopril 10 MG TAB PO SCH (13:01)
[2017-03-06] MEDS: Ondansetron ODT 4 MG TAB PO PRN (13:02)
[2017-03-06] MEDS ORDERED: Metoprolol Tartrate 5 MG/5 ML VIAL IVP SCH (14:00)
[2017-03-06] MEDS: Warfarin Sodium 2 MG TAB PO SCH (17:28)
[2017-03-06] MEDS: Atorvastatin Calcium 20 MG TAB PO SCH (20:47)
[2017-03-07 05:30] LABS: INR-International Normal Ratio 1.5; Prothrombin Time 18.7 SEC (12.0-14.7)
--- NOTE | 2017-03-07 07:30 | PDOC.FM ---
- Subjective Subjective: CC: feeling great HPI: patient states he is feeling better. Has been walking around the halls without difficulty. Converted to SR after IV metoprolol. Denies CP and palpitations. - Objective Vital Signs & Weight: Vital Signs (12 hours) Temp Pulse Resp BP Pulse Ox 03/07/17 04:00 97.4 F L 98 18 130/67 92 L 03/07/17 03:18 94 L 03/06/17 23:27 95 03/06/17 19:51 96 03/06/17 19:50 97.6 F 92 22 H 107/58 L 93 L 03/06/17 19:48 89 18 96 Weight Admit Weight 77.252 kg Weight 76.067 kg I&O: 03/06/17 03/07/17 03/08/17 06:59 06:59 06:59 Intake Total 2240 1440 Output Total 1375 950 Balance 865 490 Result Diagrams: 03/01/17 04:56 03/03/17 04:42 EKG Reviewed by me: Yes (SR rate 80s. Converted from a-flutter at 1437 yesterday ) <Felipe Moreno - Last Filed: 03/07/17 07:28> - Objective Vital Signs & Weight: Vital Signs (12 hours) Temp Pulse Resp BP BP Pulse Ox 03/07/17 12:56 124/75 03/07/17 11:35 98 F 85 16 134/67 92 L 03/07/17 11:12 97 22 H 95 03/07/17 08:19 84 03/07/17 08:00 97.6 F 84 20 128/70 97 03/07/17 07:55 84 20 96 03/07/17 04:00 97.4 F L 98 18 130/67 92 L 03/07/17 03:18 94 L Weight Admit Weight 77.252 kg Weight 76.067 kg I&O: 03/06/17 03/07/17 03/08/17 06:59 06:59 06:59 Intake Total 2240 1440 Output Total 1375 950 Balance 865 490 Result Diagrams: 03/01/17 04:56 03/03/17 04:42 <Juan Pablo Solis - Last Filed: 03/07/17 13:53> Phys Exam - Physical Examination Constitutional: NAD HEENT: moist MMs, sclera anicteric Respiratory: no wheezing, clear to auscultation bilateral Cardiovascular: RRR, no significant murmur Musculoskeletal: no edema Neurological: non-focal, moves all 4 limbs Psychiatric: normal affect, A&O x 3 <Felipe oMreno - Last Filed: 03/07/17 07:28> Dx/Plan (1) Atrial fibrillation Code(s): I48.91 - UNSPECIFIED ATRIAL FIBRILLATION Status: Chronic QualifierTitle: Atrial fibrillation type: paroxysmal Qualified Code(s): I48.0 - Paroxysmal atrial fibrillation Plan: currently in SR but was in a-flutter yesterday. - oral diltiazem and multaq - cardiology titrating metoprolol. Plans to have EP perform ablation on 03/09 - pharmacy dosing warfarin. Nursing to check with cards if he can be anticoagulated for ablation. (2) COPD exacerbation Code(s): J44.1 - CHRONIC OBSTRUCTIVE PULMONARY DISEASE W (ACUTE) EXACERBATION Status: Acute Plan: Prednisone day 7, levaquin day 7 - d/c levaqin after today's dose - taper prednisone (3) Back pain Code(s): M54.9 - DORSALGIA, UNSPECIFIED Status: Acute QualifierTitle: Back pain location: thoracic back pain Chronicity: acute Back pain laterality: midline Qualified Code(s): M54.6 - Pain in thoracic spine Plan: PRNs available (4) Hypertension Code(s): I10 - ESSENTIAL (PRIMARY) HYPERTENSION Status: Chronic QualifierTitle: Hypertension type: essential hypertension Qualified Code( s): I10 - Essential (primary) hypertension Plan: Stable (5) Cellulitis of hand, left Code(s): L03.114 - CELLULITIS OF LEFT UPPER LIMB Status: Acute Plan: continue outpatient bactrim - nursing checking to see how long he needs to take bactrim. Patient unsure of how long he has been on medication. <Felipe Moreno - Last Filed: 03/07/17 07:28> Attending Addendum - Attending Addendum I personally evaluated the patient and discussed the management with Dr. Moreno. I agree with the History, Examination, Assessment and Plan documented above with any addition or exceptions noted below. He feels well. Converted to NSR yesterday from A-flutter. Still in NSR. Cor RRR, Nu murmur. Lungs: CTA. Left hand infected wound appears healed. No redness, swelling or drainage. A: Paroxysmal a-fib/a-flutter. Hand wound infection resolved. P: Dr Vick will keep him in hospital until RF Ablation can be done Wednesday by EP cardiology. D/C antibiotics. [facility] <Juan Pablo Solis - Last Filed: 03/07/17 13:53>
[2017-03-07] MEDS: Mometasone/Formoterol 120 PUFF INHALER INH SCH ×2 (07:56→19:10)
[2017-03-07] MEDS: glipiZIDE 5 MG TAB PO SCH (08:19)
[2017-03-07] MEDS: Rifampin 150 MG CAP PO SCH (08:19)
[2017-03-07] MEDS: Famotidine 20 MG TAB PO SCH (08:19)
[2017-03-07] MEDS: Multivit, Therapeutic 1 TAB PO SCH (08:19)
[2017-03-07] MEDS: predniSONE 20 MG TAB PO SCH (08:19)
[2017-03-07] MEDS: metFORMIN 500 MG TAB PO SCH ×2 (08:20→17:01)
[2017-03-07] MEDS: Sulfameth/Trimethoprim DS 800-160mg TAB PO SCH (08:20)
[2017-03-07] MEDS: Metoprolol Tartrate 25 MG TAB PO SCH ×2 (08:20→20:23)
[2017-03-07] MEDS: Dronedarone HCl 400 MG TAB PO SCH ×2 (08:20→17:01)
[2017-03-07] MEDS: Lisinopril 10 MG TAB PO SCH (12:56)
--- NOTE | 2017-03-07 14:23 | PDOC.CTH ---
<Tracy Guerra - Last Filed: 03/07/17 14:20> Cardiology Progress Note - Subjective the pt seen and examined. No overnight events. No cardiac complaints. He complains of chronic back pain; however, he has walked to nursing station today without any difficulties or SOB. - Objective Vital Signs Temp Pulse Resp BP BP Pulse Ox 03/07/17 12:56 124/75 03/07/17 11:35 98 F 85 16 134/67 92 L 03/07/17 11:12 97 22 H 95 03/07/17 08:19 84 03/07/17 08:00 97.6 F 84 20 128/70 97 03/07/17 07:55 84 20 96 03/07/17 04:00 97.4 F L 98 18 130/67 92 L 03/07/17 03:18 94 L Admit Weight 170 lb 5 oz Weight 167 lb 11.2 oz 03/06/17 03/07/17 03/08/17 06:59 06:59 06:59 Intake Total 2240 1440 Output Total 1375 950 Balance 865 490 - Physical Examination General/Neuro: alert & oriented x3 Neck: no JVD present Lungs: other: (coase and diminished at bases) Heart: RRR, other: Abdomen: soft Extremities: other: (No edema) - Telemetry Telemetry Rhythm: SR - Labs Result Diagrams: 03/01/17 04:56 03/03/17 04:42 Troponin/CKMB CK-MB (CK-2) 2.6 ng/mL (0-6.6) 03/01/17 04:56 Troponin I 0.011 ng/mL (< 0.028) 03/01/17 04:56 - Assessment/Plan 1. Afib/ AFlutter with RVR - Converted back from Aflutter to SR in this AM after he received Metoprolol IV; on diltiazem 240mg daily, Multaq, Metoprolol 50mg BID, and Coumadin which managed by pharmacy; AFlutter/Afib Ablation on 04/[address] Jasso 2. COPD exacerbation - stable; managed by PCP 3. HTN - stable with current medication; cont. monitor 4. Hyperlipidemia - on Statin 5. DM type 2 - on metformin; managed by PCP 6. Chronic back pain - stable MAR reviewed Review of Systems - Review of Systems Constitutional: reports: no symptoms reported EENTM: reports: no symptoms reported Respiratory: reports: no symptoms reported Cardiac (ROS): reports: no symptoms reported ABD/GI: reports: no symptoms reported : reports: no symptoms reported Musculoskeletal: reports: see HPI Skin: reports: no symptoms reported <Ariana Alvarado Maikel - Last Filed: 03/07/17 19:39> Cardiology Progress Note - Objective Vital Signs Temp Pulse Resp BP BP Pulse Ox 03/07/17 19:12 82 18 96 03/07/17 19:10 82 18 96 03/07/17 15:35 97.9 F 80 16 122/57 L 92 L 03/07/17 12:56 124/75 03/07/17 11:35 98 F 85 16 134/67 92 L 03/07/17 11:12 97 22 H 95 03/07/17 08:19 84 03/07/17 08:00 98 F 85 16 128/70 97 03/07/17 07:55 84 20 96 Admit Weight 170 lb 5 oz Weight 167 lb 11.2 oz 03/06/17 03/07/17 03/08/17 06:59 06:59 06:59 Intake Total 2240 1440 1440 Output Total 9919 047 8192 Balance 865 490 140 - Labs Result Diagrams: 03/01/17 04:56 03/03/17 04:42 Troponin/CKMB CK-MB (CK-2) 2.6 ng/mL (0-6.6) 03/01/17 04:56 Troponin I 0.011 ng/mL (< 0.028) 03/01/17 04:56 - Assessment/Plan Pt. seen and eval. by me. No complaints. Plan for ablation on Wednesday. I agree with the A/P by the COUNTER WEIG[facility].
[2017-03-07] MEDS: Warfarin Sodium 2 MG TAB PO SCH (17:01)
[2017-03-07] MEDS: Atorvastatin Calcium 20 MG TAB PO SCH (20:22)
[2017-03-07] MEDS: Ondansetron ODT 4 MG TAB PO PRN (20:22)
[2017-03-08 05:33] LABS: INR-International Normal Ratio 1.6; Prothrombin Time 19.5 SEC (12.0-14.7)
[2017-03-08 05:41] LABS: Anion Gap 17 mmol/L (10-20); BUN (Urea Nitrogen) 29 mg/dL (8.4-25.7); Calc. Creatinine Clearance 58 mL/min (70-130); Calcium 10.3 mg/dL (7.8-10.44); Carbon Dioxide 22 mmol/L (23-31); Chloride 97 mmol/L (98-107); Estimated GFR-MDRD 59; Glucose 87 mg/dL (83-110); Potassium 5.2 mmol/L (3.5-5.1); Sodium 131 mmol/L (136-145)
[2017-03-08 06:01] LABS: Band 1 % (5-11); Eosinophils 3 % (0-10); Hemoglobin 12.7 g/dL (14.0-18.0); Lymphocytes 16 % (21-51); MDiff Complete? YES; Mean Corpuscular HGB CONC 31.9 g/dL (32.0-36.0); Mean Platelet Volume 7.8 fL (7.4-10.4); Metamyelocyte 1 % (0-0); Monocytes 3 % (0-10); Neutrophil 76 % (42-75); PLT Morphology Comment Appears Adequate; Platelet Count 195 thou/uL (130-400); RBC Distribution Width 16.5 % (11.5-14.5); Red Blood Cell (RBC) Count 4.24 mill/uL (4.70-6.10); White Blood Cell (WBC) Count 22.4 thou/uL (4.8-10.8)
--- NOTE | 2017-03-08 06:54 | PDOC.FM ---
- Subjective Subjective: Mr. Jiménez is doing well this morning, he has no complaints and there were no acute events overnight. Patient denies any fever, chest pain, palpitations and he has continued to remain in NSR. - Objective MAR Reviewed: Yes Vital Signs & Weight: Vital Signs (12 hours) Temp Pulse Resp BP Pulse Ox 03/08/17 04:04 96 03/08/17 04:00 97.1 F L 89 18 119/63 92 L 03/07/17 23:21 96 03/07/17 20:00 97.0 F L 74 18 129/67 91 L 03/07/17 19:12 82 18 96 03/07/17 19:10 82 18 96 Weight Admit Weight 77.252 kg Weight 75.977 kg I&O: 03/06/17 03/07/17 03/08/17 06:59 06:59 06:59 Intake Total 2240 1440 2300 Output Total 6871 180 0896 Balance 865 490 -100 Result Diagrams: 03/08/17 04:53 03/08/17 04:53 Phys Exam - Physical Examination Constitutional: NAD HEENT: PERRLA, moist MMs Neck: supple, full ROM Respiratory: no wheezing, no rales, no rhonchi, clear to auscultation bilateral Cardiovascular: RRR, no significant murmur, no rub Gastrointestinal: soft, non-tender, no distention Musculoskeletal: no edema Neurological: non-focal, normal sensation, moves all 4 limbs Psychiatric: A&O x 3 Dx/Plan (1) Atrial fibrillation Code(s): I48.91 - UNSPECIFIED ATRIAL FIBRILLATION Status: Chronic Qualifiers: Atrial fibrillation type: paroxysmal Qualified Code(s): I48.0 - Paroxysmal atrial fibrillation Plan: Paroxysmal. Was in A flutter but converted back to NSR on 03/06/17. -on PO diltiazem and multaq -cardiology titrating metoprolol. EP scheduled to perform ablation on 03/09/17 -pharmacy dosing warfarin (2) COPD (chronic obstructive pulmonary disease) Status: Chronic Plan: Levaquin d/c'd yesterday after he completed a 7 day course -will start tapering prednisone down, O2 sats 96% on 2L (3) Hypertension Code(s): I10 - ESSENTIAL (PRIMARY) HYPERTENSION Status: Chronic Qualifiers: Hypertension type: essential hypertension Qualified Code(s): I10 - Essential (primary) hypertension Plan: stable (4) Back pain Code(s): M54.9 - DORSALGIA, UNSPECIFIED Status: Acute Qualifiers: Back pain location: thoracic back pain Chronicity: acute Back pain laterality: midline Qualified Code(s): M54.6 - Pain in thoracic spine Plan: prn pain meds (5) Cellulitis of hand, left Code(s): L03.114 - CELLULITIS OF LEFT UPPER LIMB Status: Acute Plan: continue OP bactrim
[2017-03-08] MEDS: Dronedarone HCl 400 MG TAB PO SCH ×2 (08:17→17:39)
[2017-03-08] MEDS: Famotidine 20 MG TAB PO SCH (08:17)
[2017-03-08] MEDS: predniSONE 20 MG TAB PO SCH (08:17)
[2017-03-08] MEDS: glipiZIDE 5 MG TAB PO SCH (08:17)
[2017-03-08] MEDS: metFORMIN 500 MG TAB PO SCH ×2 (08:17→17:39)
[2017-03-08] MEDS: Metoprolol Tartrate 25 MG TAB PO SCH ×2 (08:18→22:06)
[2017-03-08] MEDS: Multivit, Therapeutic 1 TAB PO SCH (08:18)
[2017-03-08] MEDS: Mometasone/Formoterol 120 PUFF INHALER INH SCH ×2 (09:42→19:04)
--- NOTE | 2017-03-08 11:48 | PDOC.CTH ---
<Tracy Guerra - Last Filed: 03/08/17 11:45> Cardiology Progress Note - Subjective The pt seen and examined. No overnight events. No cardiac complaints. He uses Cpap for sleep, but no Home O2 at home. - Objective Vital Signs Temp Pulse Resp BP Pulse Ox 03/08/17 09:42 75 20 03/08/17 09:33 98 03/08/17 09:32 75 20 03/08/17 08:17 94 03/08/17 08:12 98.9 F 75 20 143/74 H 92 L 03/08/17 04:04 96 03/08/17 04:00 97.1 F L 89 18 119/63 92 L Admit Weight 170 lb 5 oz Weight 167 lb 8 oz 03/07/17 03/08/17 03/09/17 06:59 06:59 06:59 Intake Total 1440 2300 Output Total 950 2400 Balance 490 -100 - Physical Examination General/Neuro: alert & oriented x3 Neck: no JVD present Lungs: CTA (diminished at bases) Heart: RRR Abdomen: soft Extremities: other: (No edema) - Telemetry Telemetry Rhythm: SR - Labs Result Diagrams: 03/08/17 04:53 03/08/17 04:53 Troponin/CKMB CK-MB (CK-2) 2.6 ng/mL (0-6.6) 03/01/17 04:56 Troponin I 0.011 ng/mL (< 0.028) 03/01/17 04:56 - Assessment/Plan 1. Afib/ AFlutter with RVR - Remains SR; Converted back from Aflutter to SR on 03/07/17 after he received Metoprolol IV; on diltiazem 240mg daily, Multaq, Metoprolol 50mg BID, and Coumadin which managed by pharmacy; plan for AFlutter/ Afib Ablation on 03/09/[address] Jasso 2. COPD exacerbation - stable with 2LNC; managed by PCP 3. HTN - stable with current medication; cont. monitor 4. Hyperlipidemia - on Statin 5. DM type 2 - on metformin; managed by PCP 6. Chronic back pain - stable 7. Hyponatremia - start Fluid restriction 1200ml/day MAR reviewed Review of Systems - Review of Systems Constitutional: reports: no symptoms reported EENTM: reports: no symptoms reported Respiratory: reports: no symptoms reported Cardiac (ROS): reports: no symptoms reported ABD/GI: reports: no symptoms reported : reports: no symptoms reported Musculoskeletal: reports: no symptoms reported <Ariana Alvarado - Last Filed: 03/08/17 17:46> Cardiology Progress Note - Objective Vital Signs Temp Pulse Resp BP BP Pulse Ox 03/08/17 16:00 97.7 F 73 16 127/58 L 94 L 03/08/17 15:59 71 16 03/08/17 12:01 125/57 L 03/08/17 12:00 97.6 F 72 18 105/69 93 L 03/08/17 09:42 75 20 03/08/17 09:33 98 03/08/17 09:32 75 20 03/08/17 08:17 94 03/08/17 08:12 98.9 F 75 20 143/74 H 92 L Admit Weight 170 lb 5 oz Weight 167 lb 8 oz 03/07/17 03/08/17 03/09/17 06:59 06:59 06:59 Intake Total 1440 2300 Output Total 950 2400 Balance 490 -100 - Labs Result Diagrams: 03/08/17 04:53 03/08/17 04:53 Troponin/CKMB CK-MB (CK-2) 2.6 ng/mL (0-6.6) 03/01/17 04:56 Troponin I 0.011 ng/mL (< 0.028) 03/01/17 04:56 - Assessment/Plan Pt. seen and evaluated by me. I agree with the A/P by the OFFSET PRESS ASSISTANT.
[2017-03-08] MEDS: Lisinopril 10 MG TAB PO SCH (12:01)
--- NOTE | 2017-03-08 15:15 | RAD ---
RADIOGRAPH CHEST 2 VIEWS: Date: 03-08-2017 Time: 1:19 a.m. HISTORY: 71-year-old male with leukocytosis. COMPARISON: 03-04-17 FINDINGS: Hyperinflation consistent with COPD. Interval decrease in the bilateral small pleural effusions, now tiny. No cardiomegaly. No airspace density or pulmonary edema. Mildly prominent interstitial markings . Vertebroplasty cement in a mid to lower thoracic vertebral body. No pneumothorax. No cardiomegaly. IMPRESSION: 1. No evidence of pneumonia. 2. Interval decrease in the small pleural effusions, now tiny. 3. Old Status post vertebroplasty of compression fracture of one of the thoracic vertebrae. 4. Emphysema. TAM POS: ISAIAS
--- NOTE | 2017-03-08 15:36 | ADD-PRG ---
DATE OF SERVICE: 03/08/2017 This is an addendum to the note of Dr. Anthony Ortiz. Mr. Jiménez is resting quietly in bed and is anxious to go home. He is scheduled for ablation tomorrow for his recurrent atrial fibrillation flutter. He is currently in normal sinus rhythm and in no dis tress.
[2017-03-08] MEDS: Warfarin Sodium 5 MG TAB PO SCH (17:45)
[2017-03-08] MEDS: Calcium Carbonate 500 MG ChewTAB PO PRN ×2 (18:33→22:12)
[2017-03-08] MEDS: Atorvastatin Calcium 20 MG TAB PO SCH (22:06)
[2017-03-08] MEDS: Ondansetron ODT 4 MG TAB PO PRN (22:12)
[2017-03-08] MEDS: Cyclobenzaprine 10 MG TAB PO PRN (22:13)
[2017-03-09 05:24] LABS: INR-International Normal Ratio 1.8; Prothrombin Time 21.5 SEC (12.0-14.7)
--- NOTE | 2017-03-09 06:40 | PDOC.FM ---
- Subjective Subjective: Tab Jiménez is doing well this morning, he has no complaints and there were no acute events overnight. He states that he is ready to have his ablation procedure done today. - Objective MAR Reviewed: Yes Vital Signs & Weight: Vital Signs (12 hours) Temp Pulse Resp BP Pulse Ox 03/09/17 04:00 97.4 F L 122/66 93 L 03/09/17 02:43 78 14 95 03/08/17 23:21 79 16 95 03/08/17 20:00 97.9 F 79 16 133/61 95 03/08/17 19:04 82 16 94 L Weight Admit Weight 77.252 kg Weight 75.705 kg I&O: 03/07/17 03/08/17 03/09/17 06:59 06:59 06:59 Intake Total 1440 2300 370 Output Total 950 2400 700 Balance 490 -100 -330 Result Diagrams: 03/09/17 07:05 03/09/17 04:43 <Anthony Ortiz - Last Filed: 03/09/17 08:42> - Objective Vital Signs & Weight: Vital Signs (12 hours) Temp Pulse Resp BP Pulse Ox 03/09/17 11:51 97.8 F 68 16 129/58 L 93 L 03/09/17 11:19 78 16 03/09/17 08:20 82 03/09/17 08:17 97.4 F L 82 16 121/58 L 99 03/09/17 08:12 97 03/09/17 08:10 79 16 97 03/09/17 04:00 97.4 F L 122/66 93 L 03/09/17 02:43 78 14 95 Weight Admit Weight 77.252 kg Weight 75.705 kg I&O: 03/08/17 03/09/17 03/10/17 06:59 06:59 06:59 Intake Total 2300 370 Output Total 2400 700 Balance -100 -330 Result Diagrams: 03/09/17 07:05 03/09/17 04:43 <Vivien Saba - Last Filed: 03/09/17 12:41> Phys Exam - Physical Examination Constitutional: NAD HEENT: PERRLA, moist MMs Neck: supple, full ROM Respiratory: no wheezing, no rales, no rhonchi, clear to auscultation bilateral Cardiovascular: RRR, no significant murmur Gastrointestinal: soft, non-tender, no distention Musculoskeletal: no edema Neurological: non-focal, moves all 4 limbs Psychiatric: normal affect, A&O x 3 <Anthony Ortiz - Last Filed: 03/09/17 08:42> Dx/Plan (1) Atrial fibrillation Code(s): I48.91 - UNSPECIFIED ATRIAL FIBRILLATION Status: Chronic QualifierTitle: Atrial fibrillation type: paroxysmal Qualified Code(s): I48.0 - Paroxysmal atrial fibrillation Plan: Paroxysmal. Was in A flutter but converted back to NSR on 03/06/17. -on PO diltiazem and multaq -cardiology titrating metoprolol. EP scheduled today -pharmacy dosing warfarin -patient remains in NSR (2) COPD (chronic obstructive pulmonary disease) Status: Chronic Plan: Levaquin d/c'd yesterday after he completed a 7 day course -will start tapering prednisone down (3) Hypertension Code(s): I10 - ESSENTIAL (PRIMARY) HYPERTENSION Status: Chronic QualifierTitle: Hypertension type: essential hypertension Qualified Code( s): I10 - Essential (primary) hypertension Plan: stable (4) Back pain Code(s): M54.9 - DORSALGIA, UNSPECIFIED Status: Acute QualifierTitle: Back pain location: thoracic back pain Chronicity: acute Back pain laterality: midline Qualified Code(s): M54.6 - Pain in thoracic spine Plan: prn pain meds, no changes (5) Cellulitis of hand, left Code(s): L03.114 - CELLULITIS OF LEFT UPPER LIMB Status: Acute Plan: no changes, continue OP bactrim <Anthony Ortiz - Last Filed: 03/09/17 08:42> Attending Addendum - Attending Addendum I personally evaluated the patient and discussed the management with Dr. Ortiz. I agree with the History, Examination, Assessment and Plan documented above with any addition or exceptions noted below. The patient is scheduled for ablation today. Leukocytosis is improving. The patient has no over signs of infection and is afebrile. Will continue to monitor for signs of infection and continue trending wbc. <Vivien Saba - Last Filed: 03/09/17 12:41>
[2017-03-09 07:20] LABS: #Basophils 0.1 thou/uL (0.0-0.2); #Eosinphils 0.3 thou/uL (0.0-0.7); #Lymphocytes 2.3 thou/uL (1.20-3.40); #Neutrophils 13.3 thou/uL (1.40-6.50); %Basophils 0.5 % (0.0-1.0); %Lymphocytes 13.6 % (21.0-51.0); %Monocytes 5.9 % (0.0-10.0); %Neutrophils 78.1 % (42.0-75.0); Hemoglobin 12.6 g/dL (14.0-18.0); Mean Corpuscular HGB CONC 32.9 g/dL (32.0-36.0); Mean Corpuscular Hemoglobin 30.7 pg (27.0-31.0); Mean Corpuscular Volume 93.3 fl (80.0-94.0); Mean Platelet Volume 7.2 fL (7.4-10.4); Platelet Count 183 thou/uL (130-400); RBC Distribution Width 16.6 % (11.5-14.5); Red Blood Cell (RBC) Count 4.11 mill/uL (4.70-6.10)
[2017-03-09 07:20] LABS: ALT (SGPT) 16 U/L (8-55); AST (SGOT) 15 U/L (5-34); Albumin 3.4 g/dL (3.4-4.8); Alkaline Phosphatase 71 U/L (40-150); Anion Gap 14 mmol/L (10-20); BUN (Urea Nitrogen) 27 mg/dL (8.4-25.7); Bilirubin, Total 0.4 mg/dL (0.2-1.2); Calc. Creatinine Clearance 71 mL/min (70-130); Calcium 9.9 mg/dL (7.8-10.44); Carbon Dioxide 22 mmol/L (23-31); Chloride 98 mmol/L (98-107); Estimated GFR-MDRD 74; Globulin 2.2 g/dL (2.4-3.5); Glucose 96 mg/dL (83-110); Potassium 5.3 mmol/L (3.5-5.1); Protein, Total 5.6 g/dL (5.8-8.1); Sodium 129 mmol/L (136-145)
--- NOTE | 2017-03-09 07:35 | EKG ---
Test Reason : TACHYCARDIA Blood Pressure : / mmHG Vent. Rate : 129 BPM Atrial Rate : 129 BPM P-R Int : 126 ms QRS Dur : 072 ms QT Int : 310 ms P-R-T Axes : 037 061 -45 degrees QTc Int : 454 ms suspect atrial tachycardia wi 2:[address] and T wave abnormality Abnormal ECG When compared with ECG of 03-MAR-2017 13:52, Premature atrial complexes are no longer Present Nonspecific T wave abnormality, worse in Inferior leads Nonspecific T wave abnormality now evident in Lateral leads Confirmed by DR. Carl BARAJAS (3) on 03/09/2017 7:34:27 AM Referred By: RESIDENT Confirmed By:DR. Carl BARAJAS
--- NOTE | 2017-03-09 07:38 | EKG ---
Test Reason : Blood Pressure : / mmHG Vent. Rate : 136 BPM Atrial Rate : 136 BPM P-R Int : 100 ms QRS Dur : 068 ms QT Int : 260 ms P-R-T Axes : 044 054 -65 degrees QTc Int : 391 ms Sinus tachycardia with short OR vs atrial tach with 2 ;1 block Abnormal ECG When compared with ECG of 06-MAR-2017 04:13, (Unconfirmed) No significant change was found Confirmed by DR. Carl BARAJAS (3) on 03/09/2017 7:38:36 AM Referred By: MICHAEL Confirmed By:DR. Carl BARAJAS
[2017-03-09] MEDS: Mometasone/Formoterol 120 PUFF INHALER INH SCH ×2 (08:10→20:03)
[2017-03-09] MEDS: predniSONE 20 MG TAB PO SCH (08:20)
[2017-03-09] MEDS: metFORMIN 500 MG TAB PO SCH ×2 (08:20→17:48)
[2017-03-09] MEDS: Dronedarone HCl 400 MG TAB PO SCH ×2 (08:20→17:51)
[2017-03-09] MEDS: Famotidine 20 MG TAB PO SCH (08:21)
[2017-03-09] MEDS: Multivit, Therapeutic 1 TAB PO SCH (08:21)
[2017-03-09] MEDS: Metoprolol Tartrate 25 MG TAB PO SCH ×2 (08:21→23:12)
--- NOTE | 2017-03-09 11:13 | PDOC.CTH ---
<Anaya Urbano - Last Filed: 03/09/17 12:02> Cardiology Progress Note - Subjective Electrophysiology Cardiology Progress Note: ROS: Constitutional: Denies fever, chills, or malaise. Pulm: Denies shortness of breath, difficulty breathing while lying flat, dyspnea with exertion, or bloody sputum CV: As per subjective above Hem: Denies uncontrolled bleeding, easy bruising, or blood dyscrasias Neurologic: Denies unilateral weakness, vision changes, speech changes, stroke, or stroke-like symptoms. - Objective Vital Signs Temp Pulse Resp BP Pulse Ox 03/09/17 08:20 82 03/09/17 08:17 97.4 F L 82 16 121/58 L 99 03/09/17 08:12 97 03/09/17 08:10 79 16 97 03/09/17 04:00 97.4 F L 122/66 93 L 03/09/17 02:43 78 14 95 03/08/17 23:21 79 16 95 Admit Weight 170 lb 5 oz Weight 166 lb 14.4 oz 03/08/17 03/09/17 03/10/17 06:59 06:59 06:59 Intake Total 2300 370 Output Total 2400 700 Balance -100 -330 - Physical Examination General/Neuro: alert & oriented x3, NAD Neck: carotid US brisk, no JVD present Lungs: CTA, unlabored respirations Heart: PMI normal, RRR Abdomen: no HSM, NT/ND, soft Extremities: other: (extremities without evidence of clubbing, cyanosis, or edema) - Telemetry Telemetry Rhythm: Sinus Rhythm - Labs Result Diagrams: 03/09/17 07:05 03/09/17 04:43 - Assessment/Plan 1. Atrial Arrhythmias with RVR- patient continues to take Multaq for arrhythmia suppression. PO metoprolol and diltiazem, ventricular rates currently well controlled in 60-80 range. Patient was in AFlutter 03/07 and converted to NSR after IV Lopressor dose. a. Typical Atrial Flutter- Patient going for redo CTI ablation today, currently in sinus rhythm. b. Atrial Fibrillation- currently quiescent. 2. Oral anticoagulation- Warfarin, dosed by pharmacy, last dose 03/08/17 2. Hyponatremia-New, patient placed on fluid restriction Risks and benefits of ablation discussed with patient and all questions were answered. Risks include damage to vein, hematoma, bleeding, perforation of heart , cardiac tamponade, arrythmias, need for pacemaker, and . Patient acknowledges risks and wishes to proceed. <Eliezer Jasso - Last Filed: 03/09/17 15:59> Cardiology Progress Note - Objective Vital Signs Temp Pulse Resp BP BP Pulse Ox 03/09/17 12:46 125/57 L 03/09/17 11:51 97.8 F 68 16 129/58 L 93 L 03/09/17 11:19 78 16 03/09/17 08:20 82 03/09/17 08:17 97.4 F L 82 16 121/58 L 99 03/09/17 08:12 97 03/09/17 08:10 79 16 97 03/09/17 04:00 97.4 F L 122/66 93 L Admit Weight 170 lb 5 oz Weight 166 lb 14.4 oz 03/08/17 03/09/17 03/10/17 06:59 06:59 06:59 Intake Total 2300 370 Output Total 2400 700 Balance -100 -330 - Labs Result Diagrams: 03/09/17 07:05 03/09/17 13:12 Troponin/CKMB CK-MB (CK-2) 2.6 ng/mL (0-6.6) 03/01/17 04:56 Troponin I 0.011 ng/mL (< 0.028) 03/01/17 04:56 - Assessment/Plan I personally evaluated the patient and discussed the management with MS Urbano. I agree with the History, Examination, Assessment and Plan documented above with any addition or exceptions noted below. 1. Atrial Arrhythmias with RVR- patient continues to take Multaq for arrhythmia suppression. PO metoprolol and diltiazem, ventricular rates currently well controlled in 60-80 range. Patient was in AFlutter 03/07 and converted to NSR after IV Lopressor dose. a. Typical Atrial Flutter- Patient going for EP study ands possible redo CTI ablation today, currently in sinus rhythm. b. Atrial Fibrillation- currently quiescent. 2. Oral anticoagulation- Warfarin, dosed by pharmacy, last dose 03/08/17 INR 1.8. 2. Hyponatremia, Hyperkalemia-New, patient placed on fluid restriction. Correct as per primary team. Addendum: EPS today showed no ninducible AFIB or flutter. Alos CTI is well blocked, making typical flutter occurrence less likely. I suspect now pt achieved therpeutic levels of Multaq. For now continue [facility] curent meds.
[2017-03-09] MEDS ORDERED: Heparin 10,000 UNITS/1 ML VIAL ONE (12:17)
[2017-03-09] MEDS: Lisinopril 10 MG TAB PO SCH (12:46)
[2017-03-09 13:01] VITALS: BMI 25.3
[2017-03-09 13:43] LABS: Anion Gap 17 mmol/L (10-20); BUN (Urea Nitrogen) 23 mg/dL (8.4-25.7); Calc. Creatinine Clearance 72 mL/min (70-130); Calcium 10.2 mg/dL (7.8-10.44); Carbon Dioxide 20 mmol/L (23-31); Chloride 98 mmol/L (98-107); Estimated GFR-MDRD 75; Glucose 151 mg/dL (83-110); Potassium 5.9 mmol/L (3.5-5.1); Sodium 129 mmol/L (136-145)
--- NOTE | 2017-03-09 13:45 | PDOC.CTH ---
Cardiology Progress Note - Subjective No new issues or complaints. - Objective Vital Signs Temp Pulse Resp BP BP Pulse Ox 03/09/17 12:46 125/57 L 03/09/17 11:51 97.8 F 68 16 129/58 L 93 L 03/09/17 11:19 78 16 03/09/17 08:20 82 03/09/17 08:17 97.4 F L 82 16 121/58 L 99 03/09/17 08:12 97 03/09/17 08:10 79 16 97 03/09/17 04:00 97.4 F L 122/66 93 L 03/09/17 02:43 78 14 95 Admit Weight 170 lb 5 oz Weight 166 lb 14.4 oz 03/08/17 03/09/17 03/10/17 06:59 06:59 06:59 Intake Total 2300 370 Output Total 2400 700 Balance -100 -330 - Physical Examination General/Neuro: NAD Neck: no JVD present Lungs: CTA, unlabored respirations Heart: other: (Irregular) Abdomen: NT/ND Extremities: + edema B (no edema) - Telemetry Telemetry Rhythm: Aflutter HR 140's - Labs Result Diagrams: 03/09/17 07:05 03/09/17 13:12 Troponin/CKMB CK-MB (CK-2) 2.6 ng/mL (0-6.6) 03/01/17 04:56 Troponin I 0.011 ng/mL (< 0.028) 03/01/17 04:56 - Assessment/Plan 1. Afib/ AFlutter. 2. COPD exacerbation 3. DM type 2 4. Hyponatremia 5. Hyperkalemia PLAN: - EP evaluation to consider flutter ablation. - Continue coumadin for stroke prophylaxis. - Consider Nephrology consultation for hyponatremia.
[2017-03-09] MEDS ORDERED: Propofol 500 MG/50 ML VIAL ONE (14:04)
[2017-03-09] MEDS ORDERED: Promethazine HCl 25 MG/ML VIAL IM PRN (15:41)
[2017-03-09] MEDS ORDERED: Ondansetron HCl/PF 4 MG/2 ML Vial IVP PRN ×2 (15:41→18:37)
[2017-03-09] MEDS ORDERED: Promethazine HCl 25 MG/ML VIAL SLOW IVP PRN (15:41)
[2017-03-09] MEDS: Warfarin Sodium 5 MG TAB PO SCH (17:48)
[2017-03-09 17:50] LABS: Creatinine, Urine 28.01 mg/dL (63-166)
[2017-03-09] MEDS ORDERED: Silver Sulfadiazine 1% Cream 50 GM JAR TOP PRN (18:37)
[2017-03-09] MEDS ORDERED: diphenhydrAMINE 25 MG CAP PO PRN (18:37)
[2017-03-09] MEDS ORDERED: Bisacodyl 5 MG TAB PO PRN (18:37)
[2017-03-09] MEDS ORDERED: Nitroglycerin 0.4 MG TAB (25 Tab Bottle) SL PRN (18:37)
[2017-03-09] MEDS ORDERED: Acetaminophen 325 MG TAB PO PRN (18:37)
[2017-03-09] MEDS ORDERED: Temazepam 15 MG CAP PO PRN (18:37)
[2017-03-09] MEDS ORDERED: Bisacodyl 10 MG SUPP PR PRN (18:37)
[2017-03-09] MEDS ORDERED: Mag-Al 1200 mg/1200 mg/30 ML UDCUP PO PRN (18:37)
[2017-03-09] MEDS ORDERED: traMADol HCl 50 MG TAB PO PRN (18:37)
[2017-03-09] MEDS ORDERED: Calcium Gluc 4.6 MEQ/10 ML (100 MG/ML) SLOW IVP SCH (18:45)
[2017-03-09 20:06] LABS: Anion Gap 16 mmol/L (10-20); BUN (Urea Nitrogen) 22 mg/dL (8.4-25.7); Calc. Creatinine Clearance 64 mL/min (70-130); Calcium 11.4 mg/dL (7.8-10.44); Carbon Dioxide 28 mmol/L (23-31); Chloride 93 mmol/L (98-107); Estimated GFR-MDRD 66; Glucose 122 mg/dL (83-110); Potassium 5.7 mmol/L (3.5-5.1); Sodium 131 mmol/L (136-145)
[2017-03-09] MEDS: Atorvastatin Calcium 20 MG TAB PO SCH (23:12)
--- NOTE | 2017-03-10 01:07 | CCLSPC ---
ELECTROPHYSIOLOGY STUDY REPORT REFERRING PHYSICIAN: Dr. Vick. REASON FOR PROCEDURE: Mr. Jiménez is a 71-year-old male with prior history of paroxysmal atrial arrhyt hmias. He has had a previous history of paroxysmal atrial fibrillation suppressed with amiodarone. He did have atrial flutter ablation at [facility] in 01/2010. He is now readmitted with rec urrent atrial flutter episodes. These episodes were exacerbated some extent by his acute COPD exacer bation. The amiodarone was resumed, which initially controlled the rhythm, but then he was switched to Multaq and he was seen to have recurrent arrhythmia episodes. The flutters are possibly isthmus d ependent morphology and is here for reassessement of his inducibility of typical atrial flutter and t he assessment of the cavotricuspid block. DESCRIPTION OF PROCEDURE: The patient received deep sedation by Anesthesia specialist. After adequa te level of sedation achieved, the right femoral vein was prepped and draped, and anesthetized with s ubcutaneous lidocaine and accessed with ultrasound guidance. Two 8-Czech short sheath was introduce d. There is a decapolar 7-Czech catheter was advanced to the right ventricle, right atrium, His bun dle, and CS position. Pacing, mapping, recording was performed in each location, and following that 8-Czech ThermoCool SF catheter was advanced to the right atrium for 3D mapping. 3D mapping of the r ight atrium, His bundle, and CS areas were obtained. Following that with CS proximal pacing activati on mapping of the right atrium was performed demonstrating complete block. Because of this, we decid e not to perform ablation. Further efforts were made to induce atrial flutter or fibrillation, but n one was inducible. Results: Baseline cycle length sinus rhythm 840 milliseconds, HI of 150, QRS 73, QT is 390 milliseco nds, AH 118, HV 48 milliseconds. The sinus node recovery time 721 milliseconds with corrected 119 ne gative. AV Wenckebach cycle length 390 milliseconds, retrograde Wenckebach cycle length was 390 mill iseconds as well. Concentric retrograde VA activation seen although there is possible suggestion of VA ----- CS block is noted both on the proximal CS spacing and VA pacing as well. Again, no atrial f ibrillation or flutter inducible. CONCLUSION: 1. No inducible atrial arrhythmias at this point on Multaq. 2. Cavotricuspid isthmus checked and demonstrated a complete block with transisthmus time up to 160 milliseconds with transisthmus block was demonstrated by activation mapping. 3. Adequate sinus and AV vilma function. PLAN: At this point, we will hold off ablation. Continue Multaq therapy. After full recovery, cons ideration for pulmonary venous isolation procedure could be made in the future if medical therapy is not optimal alternatively pacing and AV vilma ablation could be also possible. POS: ISAIAS
[2017-03-10] MEDS ORDERED: Dextrose 5 % And 0.9 % NaCl 1,000 ML IV SCH (03:45)
[2017-03-10] MEDS ORDERED: Insulin Regular 300 UNITS/3 ML VIAL SC SCH (03:45)
[2017-03-10 06:18] LABS: #Basophils 0.1 thou/uL (0.0-0.2); #Eosinphils 0.2 thou/uL (0.0-0.7); #Lymphocytes 2.1 thou/uL (1.20-3.40); #Monocytes 1.1 thou/uL (0.11-0.59); #Neutrophils 11.1 thou/uL (1.40-6.50); %Basophils 0.4 % (0.0-1.0); %Eosinophils 1.6 % (0.0-10.0); %Lymphocytes 14.6 % (21.0-51.0); %Monocytes 7.6 % (0.0-10.0); %Neutrophils 75.8 % (42.0-75.0); Hemoglobin 12.9 g/dL (14.0-18.0); Mean Corpuscular HGB CONC 32.9 g/dL (32.0-36.0); Mean Corpuscular Hemoglobin 30.4 pg (27.0-31.0); Mean Corpuscular Volume 92.4 fl (80.0-94.0); Mean Platelet Volume 7.7 fL (7.4-10.4); Platelet Count 184 thou/uL (130-400); RBC Distribution Width 16.5 % (11.5-14.5); Red Blood Cell (RBC) Count 4.25 mill/uL (4.70-6.10); White Blood Cell (WBC) Count 14.7 thou/uL (4.8-10.8)
[2017-03-10 06:23] LABS: INR-International Normal Ratio 1.9
[2017-03-10] MEDS ORDERED: Albuterol Sulfate 2.5 mg/3 ml Neb IPPB SCH (06:30)
--- NOTE | 2017-03-10 06:31 | PDOC.FM ---
- Subjective Subjective: Tab Jiménez denies any problems or acute events over night. He tolerated his EP study well, no ablation was performed. He had 3 total runs of SVT 23-27 beats each time last night. He is currently in normal sinus. Patient states he is ready to go home. - Objective MAR Reviewed: Yes Vital Signs & Weight: Vital Signs (12 hours) Temp Pulse Resp BP Pulse Ox 03/10/17 04:00 97.4 F L 75 18 108/64 95 03/10/17 03:59 107 H 20 97 03/09/17 20:03 83 18 92 L 03/09/17 20:00 98.7 F 76 18 128/60 92 L 03/09/17 19:39 98.7 F 74 18 93 L Weight Admit Weight 77.252 kg Weight 75.705 kg I&O: 03/08/17 03/09/17 03/10/17 06:59 06:59 06:59 Intake Total 2300 370 480 Output Total 2400 700 600 Balance -100 -330 -120 Result Diagrams: 03/10/17 05:38 03/10/17 05:38 <Anthony Ortiz - Last Filed: 03/10/17 09:31> - Objective Vital Signs & Weight: Vital Signs (12 hours) Temp Pulse Resp BP Pulse Ox 03/10/17 12:00 99.1 F 88 24 H 148/61 H 93 L 03/10/17 09:12 80 03/10/17 09:01 96.8 F L 80 16 138/80 93 L 03/10/17 08:29 82 12 03/10/17 08:16 97 03/10/17 08:13 82 12 03/10/17 04:00 97.4 F L 75 18 108/64 95 03/10/17 03:59 107 H 20 97 Weight Admit Weight 77.252 kg Weight 75.705 kg I&O: 03/09/17 03/10/17 03/11/17 06:59 06:59 06:59 Intake Total 370 920 Output Total 700 1350 Balance -330 -430 Result Diagrams: 03/10/17 05:38 03/10/17 05:38 <Vivien Saba - Last Filed: 03/10/17 12:51> Phys Exam - Physical Examination Constitutional: NAD HEENT: moist MMs, sclera anicteric Neck: supple, full ROM Respiratory: no wheezing, no rales, no rhonchi, clear to auscultation bilateral Cardiovascular: no significant murmur regular rate Gastrointestinal: soft, non-tender, no distention Musculoskeletal: no edema Neurological: non-focal, moves all 4 limbs Psychiatric: normal affect, A&O x 3 <Anthony Ortiz - Last Filed: 03/10/17 09:31> Dx/Plan (1) Atrial fibrillation Code(s): I48.91 - UNSPECIFIED ATRIAL FIBRILLATION Status: Chronic QualifierTitle: Atrial fibrillation type: paroxysmal Qualified Code(s): I48.0 - Paroxysmal atrial fibrillation Plan: Paroxysmal. Was in A flutter but converted back to NSR on 03/06/17. -on PO diltiazem and multaq -cardiology titrating metoprolol -pharmacy dosing warfarin -patient remains in NSR -EP study yesterday show no inducible atrial arrhythmias at that time on multaq -held off on ablation, continue multaq therapy, pt will need OP EP follow up (2) COPD (chronic obstructive pulmonary disease) Status: Chronic Plan: Levaquin d/c'd yesterday after he completed a 7 day course -decrease prednisode down to 10 mg BID, continue taper (3) Hypertension Code(s): I10 - ESSENTIAL (PRIMARY) HYPERTENSION Status: Chronic QualifierTitle: Hypertension type: essential hypertension Qualified Code( s): I10 - Essential (primary) hypertension Plan: stable, no changes at this time (4) Back pain Code(s): M54.9 - DORSALGIA, UNSPECIFIED Status: Acute QualifierTitle: Back pain location: thoracic back pain Chronicity: acute Back pain laterality: midline Qualified Code(s): M54.6 - Pain in thoracic spine Plan: prn pain meds, no changes (5) Cellulitis of hand, left Code(s): L03.114 - CELLULITIS OF LEFT UPPER LIMB Status: Acute Plan: no changes, continue OP bactrim (6) Hyperkalemia Code(s): E87.5 - HYPERKALEMIA Status: Acute Plan: likely secondary to decreased potassium excretion due to medications -patient received kayexalate and calcium gluconate due to K+ of 5.9, also received albuterol last night -K+ this morning is 4.4 <Anthony Ortiz - Last Filed: 03/10/17 09:31> Attending Addendum - Attending Addendum I personally evaluated the patient and discussed the management with Dr. Ortiz. I agree with the History, Examination, Assessment and Plan documented above with any addition or exceptions noted below. The patient is feeling well this morning. He has been cleared by EP and cardiology to discharge home. <Vivien Saba - Last Filed: 03/10/17 12:51>
[2017-03-10 06:34] LABS: Anion Gap 12 mmol/L (10-20); BUN (Urea Nitrogen) 21 mg/dL (8.4-25.7); Calc. Creatinine Clearance 69 mL/min (70-130); Calcium 9.6 mg/dL (7.8-10.44); Carbon Dioxide 25 mmol/L (23-31); Chloride 97 mmol/L (98-107); Estimated GFR-MDRD 72; Glucose 125 mg/dL (83-110); Potassium 4.4 mmol/L (3.5-5.1); Sodium 130 mmol/L (136-145)
[2017-03-10] MEDS ORDERED: predniSONE 5 MG TAB PO SCH (08:00)
[2017-03-10] MEDS: Mometasone/Formoterol 120 PUFF INHALER INH SCH (08:29)
[2017-03-10] MEDS: Dronedarone HCl 400 MG TAB PO SCH (09:12)
[2017-03-10] MEDS: metFORMIN 500 MG TAB PO SCH (09:13)
[2017-03-10] MEDS: Metoprolol Tartrate 25 MG TAB PO SCH (09:13)
[2017-03-10] MEDS: Multivit, Therapeutic 1 TAB PO SCH (09:13)
[2017-03-10] MEDS: Famotidine 20 MG TAB PO SCH (09:13)
--- NOTE | 2017-03-10 11:39 | PRG ---
DATE OF SERVICE: 03/10/2017 I am seeing Mr. Jiménez at our [facility] telemetry floor as a followup. SUBJECTIVE: Mr. Coles is doing well 1 day after his EP study procedure. OBJECTIVE: VITAL SIGNS: Blood pressure is 138/80, heart rate 88, respirations 16, temperature 96.8 degrees Fahrenheit. GENERAL: Alert and oriented man in no apparent distress. NECK: Supple. Jugular veins not distended. CHEST: Coarse, no crackles. HEART: Regular rate and rhythm. No murmur or gallop. ABDOMEN: Benign. Bowel sounds positive. EXTREMITIES: Lower extremities; no edema, clubbing or cyanosis. Right groin catheter insertion site is well healed. DATABASE: White count 14.7, hemoglobin 12.9, platelet count is 184, white blood cell count is improving. The INR today is 1.9. Sodium 130, potassium 4.4 , BUN is 21, creatinine 1.02. ASSESSMENT AND PLAN: Mr. Jiménez is a pleasant 71-year-old man with prior history of paroxysmal atrial fibrillation. He had prior CT ablation in 2009, but hence recurrent atrial fibrillation he was treated with amiodarone. He had recurrent and sustained atrial flutter associated with his COPD exacerbation this admitrequiring Mamiodarone, later Multaq administration. He underwent a repeat EP study yesterday with no inducibility of arrhyhmias. CTI ablation line is still adequate. For now we will continue Multaq, and Diltiazem and continue OAC with warfarin.If further atrial rrhythmiae are noted a PVAI possibly coudl be considered, albeit he is higher than usual risk hence the advanced pulmonary disease. Will see him back as outpt. MARY
--- NOTE | 2017-03-10 12:09 | PDOC.CTH ---
Cardiology Progress Note - Subjective He had his flutter ablation yesterday and did well. - Objective Vital Signs Temp Pulse Resp BP Pulse Ox 03/10/17 09:12 80 03/10/17 09:01 96.8 F L 80 16 138/80 03/10/17 08:29 82 12 03/10/17 08:16 97 03/10/17 08:13 82 12 03/10/17 04:00 97.4 F L 75 18 108/64 95 03/10/17 03:59 107 H 20 97 Admit Weight 170 lb 5 oz Weight 166 lb 14.4 oz 03/09/17 03/10/17 03/11/17 06:59 06:59 06:59 Intake Total 370 920 Output Total 700 1350 Balance -330 -430 - Physical Examination General/Neuro: NAD Neck: no JVD present Lungs: CTA, unlabored respirations Heart: RRR Abdomen: NT/ND Extremities: other: (no edema.) - Telemetry Telemetry Rhythm: NSR, PVC's - Labs Result Diagrams: 03/10/17 05:38 03/10/17 05:38 Troponin/CKMB CK-MB (CK-2) 2.6 ng/mL (0-6.6) 03/01/17 04:56 Troponin I 0.011 ng/mL (< 0.028) 03/01/17 04:56 - Assessment/Plan 1. Afib/ AFlutter s/p flutter ablation 2. COPD exacerbation 3. DM type 2 4. Hyponatremia 5. Hyperkalemia PLAN: - Continue coumadin for stroke prophylaxis. - Continue Multaq at 400 mg BID. - From cardiac perspective he may be discharged home. - Will sign off. Please call with any questions. - Follow up with Dr. Vick his primary Yield Loss Inspector in 4-6 weeks.
[2017-03-10 12:22] VITALS: TEMP 99.1
[2017-03-10] MEDS: Lisinopril 10 MG TAB PO SCH (12:50)
[2017-03-10 12:51] VITALS: BP 125/57
[2017-03-10] MEDS ORDERED: Warfarin Sodium 5 MG TAB PO SCH (17:00)
--- NOTE | 2017-03-10 20:09 | DIS-2 ---
DATE OF ADMISSION: 02/28/2017 DATE OF DISCHARGE: 03/10/2017 RESIDENT: Anthony Ortiz MD ADMITTING ATTENDING: Shasha Hopkins M.D. DISCHARGE ATTENDING: Vivien Saba M.D. CONSULTATIONS: 1. Cardiology, Dr. Bundy, on 03/01/2017. 2. Electrophysiology, Dr. Jasso, on 03/02/2017. PROCEDURES: 1. CT angiogram of the chest with and without contrast, impression: Extensive bilateral chronic corey g changes. These lung changes have been definitely progressed when compared to a 12/05/[address] evidence for any acute PE, stable right thyroid nodule. 2. Chest x-ray on 02/28/2017, impression: No acute intrathoracic disease. 3. X-ray of the thoracic spine on 03/02/2017, impression: Degenerative changes in the thoracic spin e with interval vertebroplasty changes involving T9 vertebral body. No acute findings seen involving the thoracic spine. 4. PA and lateral chest radiograph, impression: New small bilateral pleural effusions. Heart size and pulmonary vasculature appear within normal limits. Chronic lung changes are stable. Vertebropla sty change at T9 is stable. 5. PA and lateral chest on 03/08/2017, impression: No evidence of pneumonia. Interval decrease in small pleural effusions, now tiny. Old status post vertebroplasty of compression fracture of one of the thoracic vertebra and emphysema. 6. Electrophysiology study report, conclusion: No inducible atrial arrhythmias. At this point, on Multaq. Cavotricuspid isthmus checked and demonstrated a complete block with transisthmus time up to 160 milliseconds with transisthmus block was demonstrated by activation mapping. Adequate sinus and AV vilma function. PRIMARY DIAGNOSIS: Acute on chronic hypoxic respiratory failure secondary to chronic obstructive pul monary disease exacerbation. SECONDARY DIAGNOSES: 1. Paroxysmal atrial fibrillation. 2. Chronic obstructive pulmonary disease. 3. Tachycardia. 4. Type 2 diabetes. 5. Hypertension. 6. Hyperlipidemia. 7. Coronary artery disease status post stents. 8. Low back pain secondary to compression fracture status post vertebroplasty. DISCHARGE MEDICATIONS: Resume home medications: 1. Symbicort 80/4.5 two puffs INH b.i.d. 2. Cetirizine 10 mg p.o. p.r.n. 3. Atorvastatin calcium 20 mg p.o. at bedtime. 4. Metformin 500 mg p.o. b.i.d. with meals. 5. Lisinopril 25 mg p.o. daily. 6. Aspirin 81 mg p.o. daily. 7. Metoprolol tartrate 50 mg p.o. b.i.d. 8. Multivitamin 1 capsule p.o. daily. 9. Albuterol sulfate 1 puff p.o. p.r.n. 10. Warfarin 5 mg p.o. as directed. 11. Warfarin 7.5 mg p.o. as directed. 12. Tylenol #3 1-2 tablets p.o. q.6 hours p.r.n. 13. Bactrim-DS 1 tablet p.o. b.i.d. 14. Rifampin 150 mg p.o. b.i.d. New home medications: 1. Diltiazem HCL 240 mg p.o. daily. 2. Dronedarone 400 mg p.o. b.i.d. with meals. 3. Prednisone 10 mg p.o. q.a.m. with meals for 5 days. DISCONTINUED MEDICATIONS: 1. Zofran 4 mg sublingual q.6 hours p.r.n. 2. Tylenol 650 mg p.o. q.4 hours p.r.n. 3. Clyde 5/325 one to two tablets p.o. q.6 hours p.r.n. 4. DuoNeb 3 mL nebs q.4 hours p.r.n. 5. Levaquin 750 mg. 6. Ultram 50 mg p.o. q.4 hours p.r.n. 7. Prednisone 40 mg p.o. daily. 8. Glipizide 5 mg p.o. daily a.c. HISTORY OF PRESENT ILLNESS AND HOSPITAL COURSE: Tab Jiménez is a 71-year-old male who presented to the ED with low back pain secondary to recent surgery for compression fracture on 09/04/2016. He was also found to have difficulty breathing. He stated that he had worsening cough with mucus productio n since the Wednesday before admission. He has a history of COPD and takes Symbicort daily at home. He also states he uses CPAP at night with O2, but does not use oxygen any other time during the day. T he patient denied any chest pain, palpitations, edema, PND, orthopnea. He has a 70-ndau-iilu smoking history and quit smoking 6 weeks ago. In the ED, he was found to be tachycardic in the 150s and tac hypneic in the low 30s. He was given Lopressor and Cardizem in an attempt to bring down the pulse ra te. In addition, he was given Solu-Medrol to assist with breathing and placed on 2 liters of nasal c annula. His O2 sat improved to about 98. The patient was admitted for acute on chronic hypoxic resp iratory failure secondary to COPD exacerbation. He was started on prednisone 40 daily for 5 days and Levaquin 750 mg for 7 days with p.r.n. DuoNeb and albuterol treatments. The patient's initial EKG s howed sinus tachycardia in the ED. The patient was started on metoprolol for the sinus tachycardia t hat was in the 130s to 140s and a couple of days into the admission, he converted to normal sinus rhy thm from sinus tachycardia and that he went into atrial flutter. Dr. Bundy with Cardiology was co nsulted. Patient was started on amiodarone drip and was continued on his home metoprolol. By this p oint, his COPD had become more stable and his wheezing had improved. Dr. Jasso with electrophysiology was also consulted and the patient was started on a diltiazem drip. On 03/01/2017, the patient had converted in and out of atrial flutter and atrial fibrillation. Electrophysiology felt that he was a dequately loaded with amiodarone and decided to perform an ablation once the patient was more fully r ecovered from COPD exacerbation and once left ventricular function was improved, he wanted the patien t switched to Multaq. The patient converted back into sinus rhythm on 03/04/2017 and Multaq seemed t o suppress his arrhythmias. Patient was controlled in sinus rhythm for the last several days of admi ssion on home metoprolol, 240 mg daily of diltiazem, and 400 mg b.i.d. of Multaq. The patient was ta re down for EP study, but there was no ablation done as there was no inducible atrial arrhythmias, l ikely because the patient was stable on Multaq. Patient was cleared from a cardiac standpoint and El ectrophysiology standpoint on 03/10/2017. The patient was instructed to follow up with Dr. Vick, h is primary gastroenterology professor in 4-6 weeks and recommended to continue Multaq, diltiazem, metoprolol, and f ollow up with Electrophysiology, Dr. Jasso. The patient was stable and ready for discharge on 018 and was in agreement with the plan to continue new medications. DISPOSITION: Guarded, but will likely do well if he follows up with Electrophysiology and Cardiology and takes his new home medications as prescribed. DISCHARGE INSTRUCTIONS: 1. Location: Home. 2. Diet: Heart healthy and diabetic diet. 3. Activity: As tolerated. 4. Follow up with Cardiology, Dr. Vick and Electrophysiology, Dr. Jasso.
[2017-03-12] MEDS ORDERED: Warfarin Sodium 7.5 MG TAB PO SCH (17:00)
== END 2017-03-10 13:53 | disposition home or self-care (01) | DRG 273 ==
LOC: ERS 15:40 → 2NO 20:38
PROVIDERS: ADMIT Family Medicine; ATTEND Family Medicine
PROC: 4A023FZ Measurement of Cardiac Rhythm, Percutaneous Approach (ICD-10-PCS; principal; 2017-03-09)
PROC: 02583ZZ Destruction of Conduction Mechanism, Percutaneous Approach (ICD-10-PCS; 2017-03-09)
PROC: 4A0234Z Measurement of Cardiac Electrical Activity, Percutaneous Approach (ICD-10-PCS; 2017-03-09)
PROC: 02K83ZZ Map Conduction Mechanism, Percutaneous Approach (ICD-10-PCS; 2017-03-09)
DX: I48.3 Typical atrial flutter (principal); J96.21 Acute and chronic respiratory failure with hypoxia; E87.5 Hyperkalemia; E87.1 Hypo-osmolality and hyponatremia; E11.9 Type 2 diabetes mellitus without complications; D64.9 Anemia, unspecified; J44.1 Chronic obstructive pulmonary disease with (acute) exacerbation; L03.114 Cellulitis of left upper limb; I48.0 Paroxysmal atrial fibrillation; E78.5 Hyperlipidemia, unspecified; I25.10 Atherosclerotic heart disease of native coronary artery without angina pectoris; Z95.5 Presence of coronary angioplasty implant and graft; I10 Essential (primary) hypertension; Z87.891 Personal history of nicotine dependence; Z79.01 Long term (current) use of anticoagulants; Z87.311 Personal history of (healed) other pathological fracture; E78.00 Pure hypercholesterolemia, unspecified; M54.6 Pain in thoracic spine; Z79.84 Long term (current) use of oral hypoglycemic drugs
CPT/HCPCS: 36415; 36416; 71010; 71020; 71046; 71275; 72072; 76942; 80048; 80053; 80162; 81003; 81015; 82553; 82570; 82728; 82805; 83540; 83550; 83605; 83735; 84300; 84443; 84484; 85025; 85379; 85610; 85730; 87040; 87086; 93005; 93010; 93306; 93613; 93620; 94640; 94664; 94760; 96361; 96374; 96375; 96376; A4216; C1730; C1769; G8978-GP-CJ; G8979-GP-CJ; G8980-GP-CJ; G8987-GO-CI; G8988-GO-CI; G8989-GO-CI; J0282; J0696; J1160; J1644; J1940; J1956; J2270; J2405; J2704; J2930; J7050; J7070; J7506; J7611; J7612; J7620; Q0162

== ENCOUNTER 2017-03-17 15:08 | Inpatient (IN) | payer MEDICARE ==
[2017-03-17] MEDS ORDERED: Diltiazem HCl 125 MG, Admixture Fee 1 EACH in Sodium Chloride 0.9% 100 ML IVPB SCH (15:30)
[2017-03-17 15:36] LABS: #Eosinphils 0.1 thou/uL (0.0-0.7); #Lymphocytes 1.7 thou/uL (1.20-3.40); #Monocytes 0.7 thou/uL (0.11-0.59); #Neutrophils 6.2 thou/uL (1.40-6.50); %Basophils 0.3 % (0.0-1.0); %Eosinophils 0.7 % (0.0-10.0); %Lymphocytes 19.6 % (21.0-51.0); %Monocytes 7.9 % (0.0-10.0); %Neutrophils 71.5 % (42.0-75.0); Mean Corpuscular HGB CONC 33.3 g/dL (32.0-36.0); Mean Corpuscular Volume 93.3 fl (80.0-94.0); Mean Platelet Volume 7.8 fL (7.4-10.4); Platelet Count 168 thou/uL (130-400); Red Blood Cell (RBC) Count 3.86 mill/uL (4.70-6.10); White Blood Cell (WBC) Count 8.6 thou/uL (4.8-10.8)
[2017-03-17 15:52] LABS: ALT (SGPT) 18 U/L (8-55); AST (SGOT) 20 U/L (5-34); Albumin 3.7 g/dL (3.4-4.8); Alkaline Phosphatase 79 U/L (40-150); Anion Gap 17 mmol/L (10-20); BUN (Urea Nitrogen) 14 mg/dL (8.4-25.7); Bilirubin, Total 0.3 mg/dL (0.2-1.2); CK (CPK) 45 U/L (30-200); Calc. Creatinine Clearance 0 mL/min (70-130); Calcium 9.6 mg/dL (7.8-10.44); Carbon Dioxide 18 mmol/L (23-31); Chloride 104 mmol/L (98-107); Estimated GFR-MDRD 90; Globulin 2.7 g/dL (2.4-3.5); Glucose 98 mg/dL (83-110); Lipase 95 U/L (8-78); Potassium 3.8 mmol/L (3.5-5.1); Protein, Total 6.4 g/dL (5.8-8.1); Sodium 135 mmol/L (136-145)
[2017-03-17 15:55] LABS: CKMB 1.5 ng/mL (0-6.6); Troponin I 0.016 ng/mL (< 0.028)
--- NOTE | 2017-03-17 16:10 | RAD ---
RADIOGRAPH CHEST 1 VIEW: Date: 03/17/17. Time: 3:43 p.m. HISTORY: A 71-year-old male with tachycardia. COMPARISON: 03/08/17. FINDINGS: Again noted is the hyperinflation consistent with COPD. No cardiomegaly. Chronic-appearing, streaky density at right upper lobe is consistent with pulmonary scar. This was obscured by multiple ECG le ads on the prior study. Interstitial markings are prominent, especially in the mid and lower lung zo cirilo. These appear worse than on the prior study, probably because of technical differences. No cons olidation. Lateral costophrenic angles are sharp. No pneumothorax. IMPRESSION: 1. Emphysema. 2. Right upper lobe pulmonary scar. 3. Prominent interstitial markings, probably chronic. 4. No cardiomegaly. JN [] POS: OFF
[2017-03-17 16:40] LABS: INR-International Normal Ratio 1.3; Prothrombin Time 16.7 SEC (12.0-14.7)
[2017-03-17 16:41] LABS: PTT 31.5 SEC (22.9-36.1)
[2017-03-17] MEDS ORDERED: Metoprolol Tartrate 5 MG/5 ML VIAL ONE (17:30)
[2017-03-17] MEDS ORDERED: Acetaminophen 325 MG TAB PO PRN (19:29)
[2017-03-17] MEDS ORDERED: Sodium Chloride 0.9% 1,000 ML IV SCH (19:29)
[2017-03-17 20:23] LABS: Troponin I 0.015 ng/mL (< 0.028)
[2017-03-17] MEDS ORDERED: Non-Formulary Item 1 EACH (Cetirizine Hcl [Allergy Relief] 10 MG) PO PRN (21:10)
[2017-03-17] MEDS ORDERED: Albuterol Sulfate 2.5 mg/3 ml Neb NEB PRN (21:17)
[2017-03-17] MEDS ORDERED: Loratadine 10 MG TAB PO PRN (21:27)
[2017-03-17] MEDS: Metoprolol Tartrate 50 MG TAB PO SCH (21:33)
[2017-03-17 23:11] LABS: Troponin I 0.017 ng/mL (< 0.028)
[2017-03-18] MEDS ORDERED: Dextrose 50% Abboject 50 ML SYRINGE SLOW IVP PRN (00:42)
[2017-03-18] MEDS ORDERED: Dextrose 5% in Water 1,000 ML IV PRN (00:42)
[2017-03-18] MEDS: Diltiazem 125 MG in Sodium Chloride 0.9% 100 ML IVPB SCH ×3 (01:02→20:21)
[2017-03-18] MEDS ORDERED: Metoprolol Tartrate 5 MG/5 ML VIAL IVP PRN (03:37)
--- NOTE | 2017-03-18 04:10 | PDOC.EVN ---
Event Note - Event Note Event Note: Earlier in the night ordered titration of dilt gtt, titrated to max of 15, oral beta pawel he takes at home given. HR slowly decreased from 140s to 110s. Called about pt's HR in the 170s now. Went to see patient, resting comfortably, states he is in no distress. IV lopressor ordered. <Indigo Zhang - Last Filed: 03/18/17 04:07> Attending Addendum - Attending Addendum Would add amnio drip for additional effect. Luana <Brenda Davison - Last Filed: 03/19/17 05:08>
[2017-03-18] MEDS ORDERED: Amiodarone In Dextrose 200 ML IVPB SCH (05:00)
[2017-03-18 06:00] LABS: #Lymphocytes 0.8 thou/uL (1.20-3.40); #Monocytes 0.3 thou/uL (0.11-0.59); #Neutrophils 7.6 thou/uL (1.40-6.50); %Basophils 0.2 % (0.0-1.0); %Eosinophils 0.4 % (0.0-10.0); %Lymphocytes 9.2 % (21.0-51.0); %Monocytes 3.4 % (0.0-10.0); %Neutrophils 86.8 % (42.0-75.0); Hemoglobin 10.8 g/dL (14.0-18.0); Mean Corpuscular HGB CONC 32.7 g/dL (32.0-36.0); Mean Corpuscular Hemoglobin 30.6 pg (27.0-31.0); Mean Corpuscular Volume 93.5 fl (80.0-94.0); Mean Platelet Volume 8.1 fL (7.4-10.4); Platelet Count 156 thou/uL (130-400); RBC Distribution Width 16.9 % (11.5-14.5); Red Blood Cell (RBC) Count 3.53 mill/uL (4.70-6.10); White Blood Cell (WBC) Count 8.7 thou/uL (4.8-10.8)
[2017-03-18] MEDS: Amiodarone HCl 450 MG, Admixture Fee 1 EACH in Dextrose 5% in Water 250 ML IVPB SCH ×3 (06:07)
[2017-03-18 06:19] LABS: Anion Gap 15 mmol/L (10-20); BUN (Urea Nitrogen) 9 mg/dL (8.4-25.7); Calc. Creatinine Clearance 92 mL/min (70-130); Calcium 8.5 mg/dL (7.8-10.44); Carbon Dioxide 19 mmol/L (23-31); Chloride 106 mmol/L (98-107); Estimated GFR-MDRD Greater than 90; Glucose 168 mg/dL (83-110); Potassium 3.8 mmol/L (3.5-5.1); Sodium 136 mmol/L (136-145)
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
[2017-03-18] MEDS ORDERED: Lorazepam 2 MG/ML VIAL SLOW IVP SCH (08:00)
[2017-03-18] MEDS: Dronedarone HCl 400 MG TAB PO SCH ×2 (08:02→17:23)
[2017-03-18] MEDS: Multivitamin W/ Minerals 1 TAB PO SCH (08:02)
[2017-03-18] MEDS: Metoprolol Tartrate 50 MG TAB PO SCH ×2 (08:02→20:40)
[2017-03-18] MEDS ORDERED: Iopamidol 370 76% 50 ML VIAL FS ONE (08:55)
[2017-03-18] MEDS ORDERED: Non-Formulary Item 1 EACH (Budesonide-Formoterol [Symbicort 80-4.5] 2 PUFF) INH SCH (09:00)
[2017-03-18] MEDS: Mometasone/Formoterol 120 PUFF INHALER INH SCH (10:37)
--- NOTE | 2017-03-18 10:54 | PDOC.FM ---
- Subjective Subjective: Patient found in bed. He state he is no longer feeling SOB, no chest pain, no anxiety. He originally was with HR in 150's but is getting dilt and amio by IV - Objective MAR Reviewed: Yes Vital Signs & Weight: Vital Signs (12 hours) Temp Pulse Resp BP Pulse Ox 03/18/17 10:38 108 H 16 03/18/17 10:37 94 20 03/18/17 07:15 94 L 03/18/17 07:12 94 28 H 03/18/17 03:55 98.1 F 96 26 H 111/67 93 L 03/18/17 02:21 86 26 H 91 L 03/18/17 00:13 93 L 03/18/17 00:00 98.2 F 114 H 20 133/74 95 03/17/17 23:27 110 H 30 H 93 L Weight Weight 75.931 kg I&O: 03/17/17 03/18/17 03/19/17 06:59 06:59 06:59 Intake Total 1600 Output Total 900 Balance 700 Result Diagrams: 03/18/17 05:21 03/18/17 05:21 <Kyle Reich - Last Filed: 03/18/17 10:52> - Objective Vital Signs & Weight: Vital Signs (12 hours) Temp Pulse Resp BP Pulse Ox 03/18/17 11:03 97.6 F 115 H 18 122/71 98 03/18/17 10:38 108 H 16 03/18/17 10:37 94 20 03/18/17 08:00 98 F 135 H 22 H 95 03/18/17 07:15 94 L 03/18/17 07:12 94 28 H 03/18/17 03:55 98.1 F 96 26 H 111/67 93 L 03/18/17 02:21 86 26 H 91 L Weight Weight 75.931 kg I&O: 03/17/17 03/18/17 03/19/17 06:59 06:59 06:59 Intake Total 1600 Output Total 900 Balance 700 Result Diagrams: 03/18/17 05:21 03/18/17 05:21 <Woo Mckeon - Last Filed: 03/18/17 12:23> Phys Exam - Physical Examination Constitutional: NAD HEENT: moist MMs Neck: no nodes, supple Respiratory: no wheezing, no rales, no rhonchi Cardiovascular: RRR Not tachy, pulse in 80s Gastrointestinal: soft, non-tender, no distention Musculoskeletal: no edema Neurological: non-focal, moves all 4 limbs Lymphatic: no nodes Psychiatric: normal affect Skin: no rash <RachanaKyle - Last Filed: 03/18/17 10:52> Dx/Plan (1) Atrial flutter with rapid ventricular response Code(s): I48.92 - UNSPECIFIED ATRIAL FLUTTER Status: Acute Plan: Afib with rvr, currently under control, not symptomatic. EP plans to do ablation and pacemaker placement today. They are aware of patient. Appreciate EP recs. (2) Diabetes type 2, controlled Code(s): E11.9 - TYPE 2 DIABETES MELLITUS WITHOUT COMPLICATIONS Status: Chronic QualifierTitle: Diabetes mellitus complication status: with unspecified complications Diabetes mellitus jail insulin use: without termite helper use Qualified Code(s): E11.8 - Type 2 diabetes mellitus with unspecified complications Plan: SSI, will monitor. Under control at this moment. Continue metformin (3) Dyslipidemia Code(s): E78.5 - HYPERLIPIDEMIA, UNSPECIFIED Status: Chronic Plan: Continue with home medication. Continue a torvastatin (4) Hypertension Code(s): I10 - ESSENTIAL (PRIMARY) HYPERTENSION Status: Chronic QualifierTitle: Hypertension type: essential hypertension Qualified Code( s): I10 - Essential (primary) hypertension Plan: BP is at normal level, will continue to monitor. (5) Oral thrush Code(s): B37.0 - CANDIDAL STOMATITIS Status: Acute Plan: Patient got nystatin for oral thrush. Plan to review records for serology testing. (6) COPD exacerbation Code(s): J44.1 - CHRONIC OBSTRUCTIVE PULMONARY DISEASE W (ACUTE) EXACERBATION Status: Acute Plan: Last night, he received methylprednisolone and had some duoneb. This may play into his tachycardia. If he is sob, he vera lget breathign treatment, but will try to avoid it otherwise. <RachanaKyle La Nena - Last Filed: 03/18/17 10:52> Attending Addendum - Attending Addendum I personally evaluated the patient and discussed the management with Dr. Reich. I agree with and repeated the History, Examination, Assessment and Plan documented above with any addition or exceptions noted below. Patient comfortable. Says he has some palps/sob but no cp, and this is just intermittent. No n/v/diarrhea/abdominal pain. Initially RRR, but when I walked out to look at the monitor he was back in the 120's. Await cath today. Continue management for COPD exac. Anticoagulation per cardiology. <Woo Mckeon - Last Filed: 03/18/17 12:23>
[2017-03-18] MEDS: Sodium Chloride 0.9% 1,000 ML IV SCH (11:50)
[2017-03-18] MEDS: Nystatin 500,000 UNITS/5 ML UDCUP SSW SCH ×4 (11:50→20:42)
[2017-03-18] MEDS ORDERED: Glycopyrrolate 0.2 MG/ML 5 ML SYRINGE ONE (12:26)
[2017-03-18] MEDS ORDERED: Fentanyl 100 MCG/2 ML VIAL ONE (12:26)
[2017-03-18] MEDS ORDERED: Promethazine HCl 25 MG/ML VIAL ONE (12:26)
[2017-03-18] MEDS ORDERED: PHENYLEPHRINE-NS 100 MCG/ML 10 ML SYRINGE ONE (12:27)
[2017-03-18] MEDS ORDERED: Propofol 1,000 MG/100 ML VIAL IV ONE (12:27)
[2017-03-18] MEDS ORDERED: Phenylephrine 10 MG/NS 250 ML 250 ML ONE (12:27)
[2017-03-18] MEDS ORDERED: Gentamicin 80 MG/2 ML VIAL ONE (13:03)
[2017-03-18] MEDS ORDERED: CEFAZOLIN/Water 2 GM/20 ML SYRINGE ONE (13:03)
[2017-03-18] MEDS ORDERED: CEFAZOLIN 1 GM VIAL ONE (13:03)
[2017-03-18] MEDS ORDERED: Ondansetron HCl/PF 4 MG/2 ML Vial ONE ×2 (15:14→16:51)
[2017-03-18] MEDS ORDERED: Promethazine HCl 25 MG/ML VIAL SLOW IVP PRN (15:31)
[2017-03-18] MEDS ORDERED: Ondansetron HCl/PF 4 MG/2 ML Vial IVP PRN (15:31)
[2017-03-18] MEDS ORDERED: Meperidine HCl/PF 25 MG/ML VIAL SLOW IVP PRN (15:31)
[2017-03-18] MEDS ORDERED: Morphine Sulfate 2 MG/ML SYRINGE SLOW IVP PRN (15:31)
--- NOTE | 2017-03-18 16:18 | RAD ---
FRONTAL CHEST RADIOGRAPH 03/18/17 COMPARISON: 03/17/17 HISTORY: Evaluate chest following pacemaker placement. FINDINGS: There is no pneumothorax or pleural fluid. There is no lobar consolidation or alveolar edema. There is atherosclerotic calcifications in the aortic arch. There is a three lead transvenous pacing device inserted via a left subclavian approach with leads overlying the region of the right atrium, t he right ventricle and the coronary sinus. There is a linear perihilar and bibasilar interstitial density, nonspecific and stable when compared to 03/17/17 exam. The interstitial prominence is slightly increased since 02/28/17. IMPRESSION: 1. Interval placement of a three lead transvenous pacing device via left subclavian approach wit h leads overlying the region of the right atrium, right ventricle and coronary sinus. No pneumothorax seen. 2. Interstitial prominence of pulmonary hyperinflation. Interstitial prominence is slightly more prominent than on prior imaging which may signify chronic change with superimposed interstitial gareth a. Followup PA and lateral imaging following treatment advised. POS: ISAIAS
[2017-03-18] MEDS ORDERED: Propofol 200 MG/20 ML VIAL ONE (16:51)
[2017-03-18] MEDS ORDERED: Acetaminophen/Codeine 30-300mg Tablet PO PRN ×2 (17:15)
[2017-03-18] MEDS ORDERED: Enoxaparin Sodium 40 MG/0.4 ML SYRINGE SC SCH (19:30)
[2017-03-18] MEDS: Atorvastatin Calcium 20 MG TAB PO SCH (20:40)
[2017-03-18] MEDS: Cephalexin 250 MG CAP PO SCH (20:40)
--- NOTE | 2017-03-18 21:18 | CCL ---
PREOPERATIVE DIAGNOSIS: Atrial fibrillation with rapid ventricular rate. PROCEDURE DETAILS: The patient came to the EP lab in the postabsorptive state. Informed consent was obtained. A [facility] t was called. The patient was sedated by a member of the Anesthesia staff. Once patient was adequat yifan sedated, the left chest area was prepped and draped in usual fashion. In addition, the groin are a was previously prepped and draped in the usual sterile fashion. Lidocaine was infused in the area parallel to the deltopectoral groove, but below the clavicle. A 3 cm incision was made parallel to t deltopectoral groove below the clavicle. A cephalic cutdown was performed. Access was obtained b y cephalic cutdown. Three wires were advanced into the cephalic vein. Through these, two 7 Iranian p eel-away sheaths were advanced and through this, a Medtronic pacemaker lead was placed. The first le ad was a 5076 58 cm placed in the RV apex, serial number [id number]. Once adequate sensing and thres holds were obtained, the lead was secured by extension of the helix. Following this, an atrial lead, which was a 5076, 52 cm lead, serial number [id number] was advanced, placed in the right atrial appe ndage. Again, once adequate sensing and thresholds were obtained, the lead was secured by extension of the helix. Following this, access was obtained into the coronary sinus without too much difficult y, coronary sinus venogram demonstrated a paucity of veins. There were some veins that appeared to b e potentially lateral; however, these were generally fairly small. There was a very large posterior vein. However, this appeared to be coming off from the os .Attempts were made to get into the it applications manager ior vein. However, we were unable to access it. Therefore, the lead was placed into the high latera l branch without too much difficulty. Final numbers were as follows, P-wave was 2.9, the R-wave was 17.8. LV wave was 13, atrial impedance 515. RV impedance was 1130, LV impedance was 1760. RV thres hold was 1 volt at 0.5 milliseconds. LV threshold was 1 volt at 0.5 milliseconds. Following this, [facility] device was connected to a pacemaker. This was a Medtronic Solera quad ALTITUDE CHAMBER TECHNICIAN, serial number [id number] with care to ensure that the leads went all the way into the end of the pin block. The pocket wa s copiously irrigated with antibiotic solution and the pacemaker and leads were placed in the pocket with care to ensure that the leads were underneath the pacemaker and the device was secured to the pe ctoral fascia using #0 silk suture. The pocket was then closed with combination of 2-0, 3-0 and 4-0 Vicryl suture followed by Dermabond for the skin. Following this access was obtained into the femora l vein using modified Seldinger technique, an 8 mm tip ablation catheter was advanced then placed [place] ng His bundle area. His electrogram was seen delivery of radiofrequency in this area resulted in slo wing of the heart rate. However, no complete AV block multiple lesions were delivered up and down th e septum along the areas where His bundle were recorded; however, no complete heart block could be ob tained. Therefore, because of the slowing of the heart rate. The catheter was removed and sheaths w ere removed and hemostasis obtained with manual pressure. CONCLUSIONS: 1. Successful implantation of ALTITUDE CHAMBER TECHNICIAN pacemaker. 2. AV node modification without complete heart block. RECOMMENDATIONS: The patient will continue anticoagulant therapy. The patient will continue with rate control medicat ions which has now may be more successful and Lastly, the patient will follow up 2:00 to reevalua te in case he does need a full AV junction ablation in the future. POSTOPERATIVE DIAGNOSIS: Atrial fibrillation, rapid ventricular rate, with rapid ventricular rate.
[2017-03-18] MEDS: HumaLOG 300 UNITS/3 ML VIAL SC PRN (21:19)
[2017-03-19] MEDS: Mometasone/Formoterol 120 PUFF INHALER INH SCH ×3 (00:47→18:34)
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
[2017-03-19] MEDS: Mag-Al 1200 mg/1200 mg/30 ML UDCUP PO PRN (02:00)
[2017-03-19] MEDS: Diltiazem 125 MG in Sodium Chloride 0.9% 100 ML IVPB SCH ×2 (05:17→15:14)
[2017-03-19] MEDS: Ondansetron HCl/PF 4 MG/2 ML Vial SLOW IVP PRN ×2 (05:54→11:02)
[2017-03-19] MEDS: Amiodarone HCl 450 MG, Admixture Fee 1 EACH in Dextrose 5% in Water 250 ML IVPB SCH ×3 (06:02)
[2017-03-19] MEDS: HumaLOG 300 UNITS/3 ML VIAL SC PRN ×3 (06:11→17:09)
[2017-03-19] MEDS: Metoprolol Tartrate 50 MG TAB PO SCH ×2 (07:49→21:11)
[2017-03-19] MEDS: metFORMIN 500 MG TAB PO SCH ×2 (07:49→17:28)
[2017-03-19] MEDS: Multivitamin W/ Minerals 1 TAB PO SCH (07:49)
[2017-03-19] MEDS: Nystatin 500,000 UNITS/5 ML UDCUP SSW SCH ×4 (07:49→21:12)
[2017-03-19] MEDS: Cephalexin 250 MG CAP PO SCH ×3 (07:49→21:11)
[2017-03-19] MEDS: Dronedarone HCl 400 MG TAB PO SCH (07:49)
[2017-03-19 08:19] LABS: #Lymphocytes 0.7 thou/uL (1.20-3.40); #Monocytes 0.4 thou/uL (0.11-0.59); #Neutrophils 9.7 thou/uL (1.40-6.50); %Basophils 0.1 % (0.0-1.0); %Eosinophils 0.2 % (0.0-10.0); %Monocytes 3.9 % (0.0-10.0); %Neutrophils 89.8 % (42.0-75.0); Hemoglobin 9.5 g/dL (14.0-18.0); Mean Corpuscular HGB CONC 33.4 g/dL (32.0-36.0); Mean Corpuscular Hemoglobin 31.1 pg (27.0-31.0); Mean Corpuscular Volume 93.2 fl (80.0-94.0); Mean Platelet Volume 7.8 fL (7.4-10.4); Platelet Count 148 thou/uL (130-400); Red Blood Cell (RBC) Count 3.05 mill/uL (4.70-6.10); White Blood Cell (WBC) Count 10.8 thou/uL (4.8-10.8)
[2017-03-19 08:35] LABS: Anion Gap 13 mmol/L (10-20); BUN (Urea Nitrogen) 13 mg/dL (8.4-25.7); Calc. Creatinine Clearance 84 mL/min (70-130); Calcium 8.5 mg/dL (7.8-10.44); Carbon Dioxide 27 mmol/L (23-31); Chloride 102 mmol/L (98-107); Estimated GFR-MDRD Greater than 90; Glucose 242 mg/dL (83-110); Potassium 3.6 mmol/L (3.5-5.1); Sodium 138 mmol/L (136-145)
[2017-03-19] MEDS ORDERED: Digoxin 0.5 MG/2 ML AMP SLOW IVP SCH (09:00)
[2017-03-19] MEDS ORDERED: Enoxaparin Sodium 40 MG/0.4 ML SYRINGE SC SCH (09:00)
[2017-03-19] MEDS ORDERED: Potassium Chloride 20 MEQ TAB PO SCH (09:00)
--- NOTE | 2017-03-19 11:59 | PDOC.FM ---
- Subjective Subjective: Patient found laying in bed, saying he's comfortable, with no SOB, chest pain or palpitation. When seeing him a second time, he did state he had some nausea. - Objective MAR Reviewed: Yes Vital Signs & Weight: Vital Signs (12 hours) Temp Pulse Pulse Pulse Resp BP BP 03/19/17 11:28 97.7 F 67 20 03/19/17 11:00 75 67 163/73 H 155/73 H 03/19/17 09:31 75 03/19/17 07:50 97.6 F 80 20 03/19/17 07:00 87 16 03/19/17 06:53 03/19/17 06:51 87 16 03/19/17 06:14 90 20 03/19/17 05:00 88 22 H 03/19/17 04:07 98.0 F 92 20 03/19/17 02:45 03/19/17 02:01 67 20 03/19/17 00:24 97.9 F 81 22 H BP BP Pulse Ox Pulse Ox Pulse Ox 03/19/17 11:28 155/73 H 97 03/19/17 11:00 95 97 03/19/17 09:31 03/19/17 07:50 131/63 91 L 03/19/17 07:00 03/19/17 06:53 94 L 03/19/17 06:51 03/19/17 06:14 123/58 L 93 L 03/19/17 05:00 163/73 H 92 L 03/19/17 04:07 151/69 H 92 L 03/19/17 02:45 98 03/19/17 02:01 139/70 98 03/19/17 00:24 116/63 93 L Weight Weight 75.931 kg I&O: 03/18/17 03/19/17 03/20/17 06:59 06:59 06:59 Intake Total 1600 800.4 Output Total 900 750 Balance 700 50.4 Result Diagrams: 03/19/17 07:57 03/19/17 07:57 <Kyle Reich M - Last Filed: 03/19/17 12:19> - Objective Vital Signs & Weight: Vital Signs (12 hours) Temp Pulse Pulse Pulse Resp BP BP 03/19/17 19:41 98.1 F 124 H 18 03/19/17 18:33 93 12 03/19/17 16:16 71 133/84 03/19/17 15:44 98.1 F 91 18 03/19/17 11:57 74 16 03/19/17 11:28 97.7 F 67 20 03/19/17 11:00 75 67 163/73 H 03/19/17 09:31 75 BP BP BP Pulse Ox Pulse Ox Pulse Ox 03/19/17 19:41 136/66 97 03/19/17 18:33 96 03/19/17 16:16 03/19/17 15:44 135/65 95 03/19/17 11:57 03/19/17 11:28 155/73 H 97 03/19/17 11:00 155/73 H 95 97 03/19/17 09:31 Weight Weight 75.931 kg I&O: 03/18/17 03/19/17 03/20/17 06:59 06:59 06:59 Intake Total 1600 800.4 Output Total 900 750 Balance 700 50.4 Result Diagrams: 03/19/17 07:57 03/19/17 07:57 <Woo Mckeon - Last Filed: 03/19/17 21:19> Phys Exam - Physical Examination Constitutional: NAD HEENT: moist MMs Neck: no nodes Respiratory: no wheezing, no rhonchi, clear to auscultation bilateral Cardiovascular: RRR, no significant murmur, gallop Gastrointestinal: soft Musculoskeletal: no edema, edema present Neurological: non-focal Lymphatic: no nodes Psychiatric: normal affect Skin: no rash <Kyle Reich - Last Filed: 03/19/17 12:19> Dx/Plan (1) Atrial flutter with rapid ventricular response Code(s): I48.92 - UNSPECIFIED ATRIAL FLUTTER Status: Acute Plan: Patient had ablation with pacemaker placement. He says he often has some nausea with anesthesia. Will get him zofran prn. He is getting dig, dilt and metoprolol at this time. Will follow up with EP and cardiology recs. Will follow up on their recs on anticoagulation. On cephelexin for after surgery. (2) Diabetes type 2, controlled Code(s): E11.9 - TYPE 2 DIABETES MELLITUS WITHOUT COMPLICATIONS Status: Chronic QualifierTitle: Diabetes mellitus complication status: with unspecified complications Diabetes mellitus shelter insulin use: without manager terminal use Qualified Code(s): E11.8 - Type 2 diabetes mellitus with unspecified complications Plan: SSI, will monitor. Continue metformin. Currently is elevated, but MAR show he has just got his first dose of metformin during his stay here. Will monitor for resolution of hyperglycemia with restart of his metformin. (3) Dyslipidemia Code(s): E78.5 - HYPERLIPIDEMIA, UNSPECIFIED Status: Chronic Plan: Continue with home medication. Continue atorvastatin (4) Hypertension Code(s): I10 - ESSENTIAL (PRIMARY) HYPERTENSION Status: Chronic QualifierTitle: Hypertension type: essential hypertension Qualified Code( s): I10 - Essential (primary) hypertension Plan: BP is mildly hypertensive at 150's systolic. Will continue to monitor. Patient getting metoprolol and dilt which can lower BP (5) COPD exacerbation Code(s): J44.1 - CHRONIC OBSTRUCTIVE PULMONARY DISEASE W (ACUTE) EXACERBATION Status: Acute Plan: We will continue treatment steroid and prn neb. Changed steroid to once daily. <Kyle Reich - Last Filed: 03/19/17 12:19> Attending Addendum - Attending Addendum I personally evaluated the patient and discussed the management with Dr. Reich. I agree with and repeated the History, Examination, Assessment and Plan documented above with any addition or exceptions noted below. Tolerated PM placement well. Some nausea but he says he gets this after every surgery because of the anesthesia. Exam benign this morning. PM site with minor bruising. <Woo Mckeon - Last Filed: 03/19/17 21:19>
[2017-03-19] MEDS ORDERED: Ondansetron ODT 4 MG TAB PO PRN (12:03)
--- NOTE | 2017-03-19 15:08 | PRG ---
DATE OF SERVICE: 03/19/2017 SERVICE: Pulmonary Medicine. INTERVAL HISTORY: The patient is doing really well from a respiratory standpoint. He is breathing c omfortably. He has no specific event this morning. Otherwise, there has been no interval change to his condition. PHYSICAL EXAMINATION: VITAL SIGNS: Afebrile, pulse 67, blood pressure 155/73, respirations 20, saturation 97% on 3 liters nasal cannula. GENERAL: The patient is awake, alert, no apparent distress. LUNGS: Excellent air entry with no prolonged expiratory phase, wheezing, rhonchi or crackles. HEART: Normal rate, regular. ABDOMEN: Soft, nontender, nondistended. Bowel sounds are positive. MUSCULOSKELETAL: No pitting edema of the bilateral lower extremities. No cyanosis or clubbing. GENITOURINARY: No Dawson. NEUROLOGIC: Grossly nonfocal. LABORATORY DATA: CBC is stable/unremarkable. Basic metabolic profile is completely unremarkable exc ept for potassium of 3.6. ASSESSMENT: 1. Atrial fibrillation with rapid ventricular response, status post ablation and pacemaker placement . 2. Chronic obstructive pulmonary disease without current exacerbation. 3. Obstructive sleep apnea. PLAN: The patient can continue the nebulized medications. Steroids will be interrupted as the patie nt does not have a COPD exacerbation. From my perspective, he is stable for transition out of the IM [facility] to the telemetry unit if he needs to stay another day. Since he has no acute ongoing inpatient is sues, Pulmonary will sign off. Please call with additional questions or concerns moving forward.
--- NOTE | 2017-03-19 16:54 | PRG ---
DATE OF SERVICE: 03/19/2017 SUBJECTIVE: Mr. Jiménez underwent biventricular pacemaker insertion yesterday and AV junction ablation . The biomedical engineering technician indicated to me it is difficult to get a complete AV block. He still had some conduction despite extensive ablation. Patient has been on intravenous amiodarone, but that was stopped this morning. He is feeling okay no w. OBJECTIVE: VITAL SIGNS: Blood pressure 135/65, pulse 70 to 98, irregular. LUNGS: Clear. CARDIAC: Irregularly irregular, but not rapid. ABDOMEN: Soft, nontender. EXTREMITIES: No edema. Pacemaker pocket is fine. EKG reveals atrial fibrillation with a variable response, intermittent pac ing. ASSESSMENT: 1. History of atrial fibrillation with very difficult to control heart rate. Ultimately require atr ioventricular junction ablation. 2. Status post pacemaker insertion. 3. Chronic atrial fibrillation. 4. Coronary artery disease. PLAN: 1. Cardizem CD. 2. Reduce beta blockers in view of the COPD. 3. Digoxin. 4. Resume Coumadin. 5. Oxygen saturation is 96% on room air could probably use oxygen if needed. Hopefully, home this w yefri.
[2017-03-19] MEDS ORDERED: Warfarin Sodium 5 MG TAB PO SCH (17:00)
--- NOTE | 2017-03-19 17:21 | PDOC.CTH ---
Cardiology Progress Note - Subjective EP progress note Patient had nausea/indigestion and shortness of breath over night. This has mostly resolved. He has been up walking and is tolerating a liquid diet. He denies any awareness of heart racing, palpitations, or chest pain. He reports mild discomfort at groin access sites. He denies any dizziness, syncope or near syncope. - ROS nausea, shortness of breath - Objective Vital Signs Temp Pulse Pulse Pulse Resp BP BP 03/19/17 16:16 71 133/84 03/19/17 15:44 98.1 F 91 18 03/19/17 11:57 74 16 03/19/17 11:28 97.7 F 67 20 03/19/17 11:00 75 67 163/73 H 03/19/17 09:31 75 03/19/17 07:50 97.6 F 80 20 03/19/17 07:00 87 16 03/19/17 06:53 03/19/17 06:51 87 16 03/19/17 06:14 90 20 BP BP BP Pulse Ox Pulse Ox Pulse Ox 03/19/17 16:16 03/19/17 15:44 135/65 95 03/19/17 11:57 03/19/17 11:28 155/73 H 97 03/19/17 11:00 155/73 H 95 97 03/19/17 09:31 03/19/17 07:50 131/63 91 L 03/19/17 07:00 03/19/17 06:53 94 L 03/19/17 06:51 03/19/17 06:14 123/58 L 93 L Weight 167 lb 6.4 oz 03/18/17 03/19/17 03/20/17 06:59 06:59 06:59 Intake Total 1600 800.4 Output Total 900 750 Balance 700 50.4 - Physical Examination General/Neuro: alert & oriented x3, NAD Neck: no JVD present Lungs: unlabored respirations, other: (diminished bilaterally with slight exp wheeze.) Heart: other: (irregularly irregular) Abdomen: no HSM, NT/ND - Telemetry Telemetry Rhythm: A Fib/flutter, V paced - Labs Result Diagrams: 03/19/17 07:57 03/19/17 07:57 Troponin/CKMB - Assessment/Plan 1. A Fib/flutter with RVR-Ventricular rates varied from 50 to 190 over night requiring IV digoxin, amiodarone, and diltiazem to control the RVR. At this point all drips have been turned off and patient was recently started on PO diltiazem. Patient is feeling better with a more stable ventricular rate and is not longer having nausea or shortness of breath. 2. Bi-V PPM- site without complication. Bruising and mild swelling noted. No drainage, streaking, or evidence of infection. Mode- VVI @ 50 for back up pacing only. 3. COPD- SOB resolved, patient on room air at this time, ambulating in hallway and sitting up in chair 4. Stroke prophylaxis- starting Coumadin tonight (by cardiology) Patient appears to be doing significantly better than yesterday/overnight. His rate control has improved and his symptoms have subsided. He is on PO diltiazem , metoprolol, and dig. He will be started on Coumadin tonight for CVA prevention. Patient ok to transfer out of ICU by EP. After discharge we plan to see him back in clinic in 2-3 weeks.
[2017-03-19] MEDS: Atorvastatin Calcium 20 MG TAB PO SCH (21:11)
[2017-03-20] MEDS ORDERED: HumaLOG 300 UNITS/3 ML VIAL SC PRN (00:04)
[2017-03-20 05:48] LABS: Hemoglobin 8.5 g/dL (14.0-18.0)
--- NOTE | 2017-03-20 06:55 | PDOC.FM ---
- Subjective Subjective: Pt feels well today. He denies chest pain, sob, or feelings of heart palpitation. He denies all symptoms in ROS, there were no acute events over night. - Objective Vital Signs & Weight: Vital Signs (12 hours) Temp Pulse Resp BP BP Pulse Ox 03/20/17 04:24 98 03/20/17 04:23 98 03/20/17 03:52 97.5 F L 90 18 107/58 L 95 03/19/17 23:56 97.8 F 92 21 H 131/58 L 97 03/19/17 23:09 90 L 03/19/17 20:00 98.0 F 107 H 20 177/81 H 98 03/19/17 19:41 98.1 F 124 H 18 136/66 97 Weight Weight 75.931 kg I&O: 03/18/17 03/19/17 03/20/17 06:59 06:59 06:59 Intake Total 1600 800.4 Output Total 900 750 Balance 700 50.4 Result Diagrams: 03/20/17 05:27 03/19/17 07:57 <Harvey Queen - Last Filed: 03/20/17 11:48> - Objective Vital Signs & Weight: Vital Signs (12 hours) Temp Pulse Pulse Pulse Resp BP BP 03/20/17 15:20 97.9 F 136 H 20 03/20/17 13:30 123 H 18 03/20/17 12:19 138 H 128 H 140/74 136/78 03/20/17 12:00 97.9 F 22 H 03/20/17 11:25 03/20/17 10:24 115 H 18 03/20/17 08:15 92 03/20/17 07:17 97.0 F L 92 18 03/20/17 07:10 88 16 03/20/17 07:07 76 16 BP Pulse Ox Pulse Ox Pulse Ox 03/20/17 15:20 136/71 92 L 03/20/17 13:30 96 03/20/17 12:19 95 92 L 03/20/17 12:00 124/78 91 L 03/20/17 11:25 91 L 03/20/17 10:24 95 03/20/17 08:15 03/20/17 07:17 143/63 H 90 L 03/20/17 07:10 88 L 03/20/17 07:07 91 L Weight Weight 75.931 kg I&O: 03/19/17 03/20/17 03/21/17 06:59 06:59 06:59 Intake Total 800.4 10 Output Total 750 450 Balance 50.4 -440 Result Diagrams: 03/20/17 05:27 03/19/17 07:57 <Mckeon,Brandon - Last Filed: 03/20/17 17:54> Phys Exam - Physical Examination Constitutional: NAD HEENT: PERRLA, moist MMs Neck: no nodes Respiratory: clear to auscultation bilateral Cardiovascular: RRR, no significant murmur Gastrointestinal: soft, non-tender, no distention, positive bowel sounds Musculoskeletal: no edema Neurological: non-focal, normal sensation Psychiatric: normal affect, A&O x 3 Skin: no rash Deviation from normal: Incision is clean and dry without drainage <Harvey Queen - Last Filed: 03/20/17 11:48> Dx/Plan (1) Atrial flutter with rapid ventricular response Code(s): I48.92 - UNSPECIFIED ATRIAL FLUTTER Status: Resolved (2) COPD (chronic obstructive pulmonary disease) Status: Chronic (3) Diabetes type 2, controlled Code(s): E11.9 - TYPE 2 DIABETES MELLITUS WITHOUT COMPLICATIONS Status: Chronic QualifierTitle: Diabetes mellitus complication status: with unspecified complications Diabetes mellitus manager terminal insulin use: without skilled nursing use Qualified Code(s): E11.8 - Type 2 diabetes mellitus with unspecified complications (4) Hypertension Code(s): I10 - ESSENTIAL (PRIMARY) HYPERTENSION Status: Chronic QualifierTitle: Hypertension type: essential hypertension Qualified Code( s): I10 - Essential (primary) hypertension - Plan Plan: 1. Atrial flutter w/RVR - s/p PM placement - rate has intermittent runs of what appears to be atrial flutter. Will increase diltiazem and monitor rate - appreciate cards recommendation on anticoagulation and outpt meds 2. DM2 - continue home meds - SSI - Glucose has been elevated throughout admission, recommend outpt follow up for management. 3. HTN - Pt has been mostly mildly elevated during admission with one low BP of 107/58 last night and was asymptomatic. - Pt has been asymptomatic when high, max of 177/81 - continue home management, recommend out pt follow up 5. COPD - pt at baseline - continue prn nebs - continue steroids for 1 week Dispo: Stable, pt will need better control of rhythm before ready for dc <Harvey Queen - Last Filed: 03/20/17 11:48> Attending Addendum - Attending Addendum I personally evaluated the patient and discussed the management with Dr. Queen and Darron. I agree with and repeated the History, Examination, Assessment and Plan documented above with any addition or exceptions noted below. Patient doing well this morning. Ordering breakfast on rounds. Afib with RVR, s/p ablation and PM insertion with persistent tachycardia. Increase metoprolo/dilt and monitor. Cards following. DM increase control today HTN, worse, adjust meds PRN Stable anemia, recheck DVT and GI ppx, coumadin restarted. <Woo Mckeon - Last Filed: 03/20/17 17:54>
[2017-03-20] MEDS: Mometasone/Formoterol 120 PUFF INHALER INH SCH ×2 (07:07→18:33)
[2017-03-20] MEDS: HumaLOG 300 UNITS/3 ML VIAL SC PRN ×2 (08:13→17:56)
[2017-03-20] MEDS: Cephalexin 250 MG CAP PO SCH ×3 (08:15→20:04)
[2017-03-20] MEDS: Enoxaparin Sodium 40 MG/0.4 ML SYRINGE SC SCH (08:15)
[2017-03-20] MEDS: Multivitamin W/ Minerals 1 TAB PO SCH (08:15)
[2017-03-20] MEDS: Digoxin 0.125 MG TAB PO SCH (08:15)
[2017-03-20] MEDS: metFORMIN 500 MG TAB PO SCH ×2 (08:15→17:58)
[2017-03-20] MEDS: Nystatin 500,000 UNITS/5 ML UDCUP SSW SCH ×4 (08:16→20:03)
[2017-03-20] MEDS: Metoprolol Tartrate 50 MG TAB PO SCH ×2 (08:16→20:04)
[2017-03-20 09:09] LABS: Iron 29 ug/dL (65-175); Iron Binding Capacity, Total 174 mcg/dL (261-462)
[2017-03-20] MEDS ORDERED: Metoprolol Tartrate 5 MG/5 ML VIAL IVP SCH (11:00)
[2017-03-20] MEDS: Metoprolol Tartrate 5 MG/5 ML VIAL IVP PRN ×2 (11:03→17:56)
[2017-03-20] MEDS: Diltiazem 125 MG in Sodium Chloride 0.9% 100 ML IVPB SCH ×2 (14:44→23:30)
[2017-03-20] MEDS: Warfarin Sodium 5 MG TAB PO SCH (17:57)
[2017-03-20] MEDS ORDERED: Digoxin 0.5 MG/2 ML AMP SLOW IVP SCH (19:00)
[2017-03-20] MEDS: Atorvastatin Calcium 20 MG TAB PO SCH (20:04)
[2017-03-20] MEDS: Mag-Al 1200 mg/1200 mg/30 ML UDCUP PO PRN (20:04)
[2017-03-21 06:35] LABS: #Eosinphils 0.1 thou/uL (0.0-0.7); #Lymphocytes 1.4 thou/uL (1.20-3.40); #Monocytes 0.7 thou/uL (0.11-0.59); %Basophils 0.2 % (0.0-1.0); %Eosinophils 0.7 % (0.0-10.0); %Lymphocytes 11.7 % (21.0-51.0); %Monocytes 5.8 % (0.0-10.0); %Neutrophils 81.6 % (42.0-75.0); Hemoglobin 9.9 g/dL (14.0-18.0); Mean Corpuscular HGB CONC 33.2 g/dL (32.0-36.0); Mean Corpuscular Hemoglobin 31.2 pg (27.0-31.0); Platelet Count 159 thou/uL (130-400); RBC Distribution Width 17.8 % (11.5-14.5); Red Blood Cell (RBC) Count 3.16 mill/uL (4.70-6.10); White Blood Cell (WBC) Count 12.2 thou/uL (4.8-10.8)
[2017-03-21] MEDS: Mometasone/Formoterol 120 PUFF INHALER INH SCH ×2 (06:44→18:40)
[2017-03-21] MEDS: Diltiazem 125 MG in Sodium Chloride 0.9% 100 ML IVPB SCH ×2 (06:46→18:59)
--- NOTE | 2017-03-21 07:28 | PDOC.FM ---
- Subjective Subjective: Pt states the he has developed n/v over night with no other symptoms in ROS. He denies cp, sob, diaphoresis. Per tele, he has been in a tachy rhythm all night. - Objective MAR Reviewed: Yes Vital Signs & Weight: Vital Signs (12 hours) Temp Pulse Resp BP BP Pulse Ox 03/21/17 06:48 125 H 16 92 L 03/21/17 06:44 125 H 18 92 L 03/21/17 04:00 98.8 F 82 20 123/69 94 L 03/21/17 02:46 122 H 16 97 03/20/17 23:34 99.1 F 135 H 18 130/64 99 03/20/17 22:45 137 H 16 96 03/20/17 20:00 98.0 F 138 H 20 153/80 H 95 Weight Weight 76.204 kg I&O: 03/20/17 03/21/17 03/22/17 06:59 06:59 06:59 Intake Total 10 1842 Output Total 450 1950 Balance -440 -108 Result Diagrams: 03/21/17 06:17 03/19/17 07:57 <Harvey Queen - Last Filed: 03/21/17 07:26> - Objective Vital Signs & Weight: Vital Signs (12 hours) Temp Pulse Pulse Pulse Resp BP BP 03/21/17 13:46 93 18 03/21/17 12:55 141 H 131 H 148/70 H 155/80 H 03/21/17 10:28 114 H 16 03/21/17 09:16 130 H 03/21/17 08:00 98.2 F 120 H 20 03/21/17 06:48 125 H 16 03/21/17 06:44 125 H 18 03/21/17 04:00 98.8 F 82 20 BP BP Pulse Ox Pulse Ox Pulse Ox 03/21/17 13:46 95 03/21/17 12:55 95 94 L 03/21/17 10:28 94 L 03/21/17 09:16 03/21/17 08:00 150/76 H 97 03/21/17 06:48 92 L 03/21/17 06:44 92 L 03/21/17 04:00 123/69 94 L Weight Weight 76.204 kg I&O: 03/20/17 03/21/17 03/22/17 06:59 06:59 06:59 Intake Total 10 1842 Output Total 450 1950 Balance -440 -108 Result Diagrams: 03/21/17 06:17 03/19/17 07:57 <MckeonWoo - Last Filed: 03/21/17 15:39> Phys Exam - Physical Examination Constitutional: NAD HEENT: PERRLA Neck: full ROM Respiratory: clear to auscultation bilateral Cardiovascular: RRR, no significant murmur Gastrointestinal: soft, non-tender, no distention, positive bowel sounds Musculoskeletal: no edema Neurological: non-focal Psychiatric: normal affect, A&O x 3 Skin: no rash <Harvey Queen - Last Filed: 03/21/17 07:26> Dx/Plan (1) Atrial flutter with rapid ventricular response Code(s): I48.92 - UNSPECIFIED ATRIAL FLUTTER Status: Resolved (2) COPD (chronic obstructive pulmonary disease) Status: Chronic (3) Diabetes type 2, controlled Code(s): E11.9 - TYPE 2 DIABETES MELLITUS WITHOUT COMPLICATIONS Status: Chronic QualifierTitle: Diabetes mellitus complication status: with unspecified complications Diabetes mellitus penitentiary insulin use: without penitentiary use Qualified Code(s): E11.8 - Type 2 diabetes mellitus with unspecified complications (4) Hypertension Code(s): I10 - ESSENTIAL (PRIMARY) HYPERTENSION Status: Chronic QualifierTitle: Hypertension type: essential hypertension Qualified Code( s): I10 - Essential (primary) hypertension (5) Nausea & vomiting Code(s): R11.2 - NAUSEA WITH VOMITING, UNSPECIFIED Status: Acute - Plan Plan: 1. Atrial flutter w/RVR - s/p PM placement - tachy has persisted even with dilt drip yesterday - Cards has been consulted, appreciate recommendation - Warfarin has been restarted. Check INR in am 2. DM2 - continue home meds - SSI - Glucose has been elevated throughout admission, recommend outpt follow up for management. 3. HTN - Pt has been mostly mildly elevated during admission with one low BP of 107/58 last night and was asymptomatic. - Pt has been asymptomatic when high, max of 177/81 - continue home management, recommend out pt follow up 5. COPD - pt at baseline - continue prn nebs - continue steroids for 1 week 6. N/v - unlcear as to etiology - start zofran, monitor throughout the day. - possibly related increased dilt dosing Dispo: Stable, pt will need better control of rhythm before ready for dc <Harvey Queen - Last Filed: 03/21/17 07:26> Attending Addendum - Attending Addendum I personally evaluated the patient and discussed the management with Dr. Queen. I agree with and repeated the History, Examination, Assessment and Plan documented above with any addition or exceptions noted below. New problem of n/v in light of increased dosage of diltiazem. Now cardene drip added. Will treat symptomatically. Await EP recs. <Woo Mckeon - Last Filed: 03/21/17 15:39>
[2017-03-21] MEDS ORDERED: Diltiazem HCl CD 300 mg Capsule PO SCH (09:00)
[2017-03-21] MEDS: Multivitamin W/ Minerals 1 TAB PO SCH (09:15)
[2017-03-21] MEDS: Cephalexin 250 MG CAP PO SCH ×3 (09:15→20:24)
[2017-03-21] MEDS: Digoxin 0.125 MG TAB PO SCH (09:16)
[2017-03-21] MEDS: Nystatin 500,000 UNITS/5 ML UDCUP SSW SCH ×5 (09:16→20:25)
[2017-03-21] MEDS: Metoprolol Tartrate 50 MG TAB PO SCH (09:17)
[2017-03-21] MEDS: Enoxaparin Sodium 40 MG/0.4 ML SYRINGE SC SCH (09:18)
[2017-03-21] MEDS: metFORMIN 500 MG TAB PO SCH ×2 (09:37→18:25)
[2017-03-21] MEDS: Warfarin Sodium 5 MG TAB PO SCH (18:24)
[2017-03-21] MEDS: Metoprolol Tartrate 100 MG TAB PO SCH (20:24)
[2017-03-21] MEDS: Atorvastatin Calcium 20 MG TAB PO SCH (20:24)
[2017-03-21] MEDS: Mag-Al 1200 mg/1200 mg/30 ML UDCUP PO PRN (20:28)
[2017-03-22] MEDS: Diltiazem 125 MG in Sodium Chloride 0.9% 100 ML IVPB SCH ×3 (03:18→22:53)
--- NOTE | 2017-03-22 05:11 | PDOC.FM ---
- Subjective Subjective: Patient states he had a good night. He denies chest pain, n/v/d. He denies diaphoresis, lightheadedness, or falls. He does admit to sob that is his normal when he gets "really worked up about things." Patient had no acute events overnight. He is still requiring Cardizem at 15 to have his rates be 80-110 bpm. He states he is ready to be done with the IVs and ready to get out of here. No other complaints at this time. - Objective Vital Signs & Weight: Vital Signs (12 hours) Temp Pulse Resp BP Pulse Ox 03/22/17 03:25 96.0 F L 80 20 148/72 H 98 03/22/17 02:16 88 18 99 03/22/17 00:00 97.9 F 72 20 124/63 96 03/21/17 22:20 65 16 100 03/21/17 20:00 98.3 F 106 H 20 155/71 H 95 03/21/17 18:37 103 H 16 96 Weight Weight 74.843 kg I&O: 03/20/17 03/21/17 03/22/17 06:59 06:59 06:59 Intake Total 10 1842 984 Output Total 450 1950 720 Balance -440 -108 264 Result Diagrams: 03/21/17 06:17 03/19/17 07:57 <Toribio Joyce - Last Filed: 03/22/17 07:34> - Objective Vital Signs & Weight: Vital Signs (12 hours) Temp Pulse Resp BP BP Pulse Ox 03/22/17 11:24 119 H 19 139/69 94 L 03/22/17 11:00 73 16 93 L 03/22/17 09:53 91 03/22/17 09:50 98.1 F 73 16 97 03/22/17 09:49 98.1 F 71 20 149/67 H 97 03/22/17 07:07 90 18 92 L 03/22/17 07:05 90 16 93 L 03/22/17 03:25 96.0 F L 80 20 148/72 H 98 03/22/17 02:16 88 18 99 Weight Weight 74.843 kg I&O: 03/21/17 03/22/17 03/23/17 06:59 06:59 06:59 Intake Total 1842 2084 Output Total 1950 1600 Balance -108 484 Result Diagrams: 03/21/17 06:17 03/19/17 07:57 <Shasha Hopkins - Last Filed: 03/22/17 13:37> Phys Exam - Physical Examination HEENT: PERRLA, moist MMs Neck: no nodes, supple Respiratory: no wheezing, clear to auscultation bilateral Cardiovascular: RRR, no significant murmur Gastrointestinal: soft, non-tender, no distention, positive bowel sounds Musculoskeletal: no edema, pulses present Neurological: non-focal, normal sensation, moves all 4 limbs Lymphatic: no nodes Psychiatric: normal affect, A&O x 3 Skin: no rash <Toribio Joyce - Last Filed: 03/22/17 07:34> Dx/Plan (1) Atrial flutter with rapid ventricular response Code(s): I48.92 - UNSPECIFIED ATRIAL FLUTTER Status: Resolved (2) COPD (chronic obstructive pulmonary disease) Status: Chronic (3) Nausea & vomiting Code(s): R11.2 - NAUSEA WITH VOMITING, UNSPECIFIED Status: Acute (4) Diabetes type 2, controlled Code(s): E11.9 - TYPE 2 DIABETES MELLITUS WITHOUT COMPLICATIONS Status: Chronic QualifierTitle: Diabetes mellitus complication status: with unspecified complications Diabetes mellitus residential insulin use: without premix concrete batcher use Qualified Code(s): E11.8 - Type 2 diabetes mellitus with unspecified complications (5) Hypertension Code(s): I10 - ESSENTIAL (PRIMARY) HYPERTENSION Status: Chronic QualifierTitle: Hypertension type: essential hypertension Qualified Code( s): I10 - Essential (primary) hypertension - Plan Plan: 1. Atrial flutter w/RVR - s/p PM placement - tachy has persisted even with dilt drip - Cards has been consulted, appreciate recommendation - Warfarin has been restarted. INR this am 1.4 2. DM2 - continue home meds - SSI - Glucose has been elevated throughout admission, recommend outpt follow up for management. 3. HTN - Pt has been mostly mildly elevated during admission with one low BP of 107/58 last night and was asymptomatic. - Pt has been asymptomatic when high, max of 177/81 - continue home management, recommend out pt follow up 5. COPD - pt at baseline - continue prn nebs - continue steroids for 1 week 6. N/v - unlcear as to etiology - start zofran, monitor throughout the day. - possibly related increased dilt dosing Dispo: Stable, pt will need better control of rhythm before ready for discharge. <Toribio Joyce - Last Filed: 03/22/17 07:34> Attending Addendum - Attending Addendum I personally evaluated the patient and discussed the management with Dr. Joyce I agree with the History, Examination, Assessment and Plan documented above with any addition or exceptions noted below- Patient c/o SOB with exertion. Afebrile VSS. A/P: 1) Afib with RVR- difficult to control; appreciate cardiology assistance; plan for repeat cath/ablation tomorrow; continue diltiazem, digoxin. 2) DM- stable, 3) COPD- continue suonebs, steroids. 4) Deconditioning- plan for PT after procedure and monitor progress; significantly dyspenic after short walk with PT. <Shasha Hopkins - Last Filed: 03/22/17 13:37>
[2017-03-22 05:18] LABS: INR-International Normal Ratio 1.4; PTT 35.2 SEC (22.9-36.1)
[2017-03-22] MEDS: Mometasone/Formoterol 120 PUFF INHALER INH SCH ×2 (07:05→19:34)
[2017-03-22] MEDS: metFORMIN 500 MG TAB PO SCH ×2 (09:52→17:14)
[2017-03-22] MEDS: Cephalexin 250 MG CAP PO SCH ×3 (09:52→20:48)
[2017-03-22] MEDS: Digoxin 0.125 MG TAB PO SCH (09:53)
[2017-03-22] MEDS: Enoxaparin Sodium 40 MG/0.4 ML SYRINGE SC SCH (09:55)
[2017-03-22] MEDS: Metoprolol Tartrate 100 MG TAB PO SCH ×2 (09:55→20:48)
[2017-03-22] MEDS: Multivitamin W/ Minerals 1 TAB PO SCH (09:55)
[2017-03-22] MEDS: Nystatin 500,000 UNITS/5 ML UDCUP SSW SCH ×5 (09:56→20:49)
--- NOTE | 2017-03-22 10:02 | PRG ---
DATE OF SERVICE: 03/22/2017 Mr. Jiménez is awake and alert, feeling okay today. No chest pain, no shortness of breath. He is on intravenous Cardizem at 15 mg an hour. PHYSICAL EXAMINATION: VITAL SIGNS: Blood pressure 148/72, pulse 90. LUNGS: Somewhat diffuse rhonchi. CARDIAC: Normal S1, normal S2. The EKG actually shows he is back in sinus rhythm presently. ASSESSMENT: 1. Atrial fibrillation with very difficult to control heart rate. 2. Chronic obstructive pulmonary disease. 3. Status post dual-chamber pacemaker biventricular with high threshold in the left ventricular lead . PLAN: 1. Reduce diltiazem to 10 mg an hour. 2. He is on digoxin 0.125 mg a day. 3. He is also on diltiazem 360 mg daily orally. 4. Metoprolol 50 mg twice a day was increased to 100 mg twice a day, but I do not think he is going to be able to tolerate that care home. The plan is to go back to the cardiovascular lab director tomorrow for further a blation.
[2017-03-22 12:32] LABS: Digoxin 0.87 ng/mL (0.8-2.0)
[2017-03-22] MEDS: Warfarin Sodium 5 MG TAB PO SCH (17:15)
[2017-03-22] MEDS: Sodium Chloride 0.9% 1,000 ML IV SCH (18:11)
[2017-03-22] MEDS: Mag-Al 1200 mg/1200 mg/30 ML UDCUP PO PRN (19:28)
[2017-03-22] MEDS: Atorvastatin Calcium 20 MG TAB PO SCH (20:48)
--- NOTE | 2017-03-22 23:02 | PRG ---
DATE OF SERVICE: 03/22/2017 ELECTROPHYSIOLOGY FOLLOWUP NOTE SUBJECTIVE: Mr. Jiménez has been doing well today. He denies palpitations. No chest pains. No fever , chills, or cough noted. He is lying comfortably in the bed. OBJECTIVE: VITAL SIGNS: Blood pressure this morning is 148/72, heart rate 80, respirations 20, temperature 96 d egrees Fahrenheit. GENERAL: He is alert and oriented man, in no apparent distress. NECK: Supple. Jugular veins not distended. CHEST: Coarse, no crackles. CARDIOVASCULAR: Heart sounds are regular to rate and rhythm. No murmur or gallop. Left precordial pacemaker insertion site is with minimal swelling, but no erythema or other signs of infection noted. ABDOMEN: Benign. Bowel sounds positive. EXTREMITIES: Lower extremities without edema, clubbing, or cyanosis. Groin catheter insertion site is without reaction. DATABASE: Telemetry strips reviewed revealing continued atypical atrial flutter throughout the weeke nd, but this morning the patient is back in sinus rhythm with intermittent ventricular pacing. Intermittent pacing spikes also noted at inappropriate paces on the telemetry strips. LABORATORY DATA: White cell count 12.2, hemoglobin 9.9, platelet count is 159 from yesterday. INR i s 1.4. ASSESSMENT AND PLAN: A 72-year-old man with history of congestive heart failure, mild to moderately reduced LV function, history of cavotricuspid isthmus ablation with CT ablation which appears to be s till blocked based on the recent EP study. On the other hand, he has recurrent atypical atrial flutt er and has advanced chronic obstructive pulmonary disease, is deemed to be a poor candidate for elect valencia CT ablation. He underwent BiV pacemaker implantation and AV vilma ablation attempt on 03/17/[address] Copeland. His AV vilma conduction dose since recurred. His LV lead position is suboptimal due to lack of choices. I discussed the further treatment options. Over the weekend, he has been on incremental doses of AV vilma blockers including digoxin, increasing the diltiazem dosage to 360 mg a day and metoprolol 100 mg twice a day as well. With maximized rates, his ventricular rates are moderately controlled and st ill suboptimal at the time of atrial flutter present. I discussed with him about the future treatment options. I think it would be reasonable to re-attemp t an AV vilma ablation. We will try to schedule him for tomorrow or day after. We will continue to monitor his anticoagulation status, currently not well anticoagulated yet. not stop the warfar in hence. Risks and benefits of repeat AV vilma ablation is discussed. In the future, we might cons ider having a repositioning versus his pacing depending on the outcome of AV vilma ablation. I discu ssed this with Dr. Vick and the patient.
--- NOTE | 2017-03-23 06:12 | PDOC.FM ---
- Subjective Subjective: Patient states he had a good night. He states he feels better than yesterday. His heart rate has been better controlled overnight. He states that he chronically uses oxygen at home especially when he sleeps and intermittently during the day. He is currently requiring oxygen at all times. He states he was able to get up and walk around, but it wore him out. He denies chest pain, n/v/d , fevers, or chills. He is awaiting his procedure to be completed by Cardiology. He has no other concerns this morning. - Objective Vital Signs & Weight: Vital Signs (12 hours) Temp Pulse Resp BP Pulse Ox 03/23/17 04:33 98.4 F 83 20 122/66 94 L 03/22/17 23:54 93 24 H 165/77 H 96 03/22/17 20:42 98.6 F 100 24 H 151/67 H 93 L Weight Weight 74.661 kg I&O: 03/21/17 03/22/17 03/23/17 06:59 06:59 06:59 Intake Total 1842 2084 1694 Output Total 1950 1600 1650 Balance -108 484 44 Result Diagrams: 03/21/17 06:17 03/19/17 07:57 <Toribio Joyce - Last Filed: 03/23/17 08:31> - Objective Vital Signs & Weight: Vital Signs (12 hours) Temp Pulse Resp BP Pulse Ox 03/23/17 09:17 86 12 03/23/17 09:07 97 03/23/17 09:05 86 12 03/23/17 08:00 98.1 F 74 24 H 146/73 H 97 03/23/17 04:33 98.4 F 83 20 122/66 94 L 03/23/17 03:48 94 L 03/22/17 23:54 93 24 H 165/77 H 96 Weight Weight 74.661 kg I&O: 03/22/17 03/23/17 03/24/17 06:59 06:59 06:59 Intake Total 2083 1694 Output Total 1600 1650 Balance 484 44 Result Diagrams: 03/23/17 10:47 03/19/17 07:57 <Shasha Hopkins - Last Filed: 03/23/17 11:30> Phys Exam - Physical Examination Constitutional: NAD HEENT: moist MMs Neck: no nodes, no JVD Respiratory: wheezing present Diminished lung sounds throughout Cardiovascular: no significant murmur, irregular Gastrointestinal: soft, non-tender, no distention, positive bowel sounds Musculoskeletal: no edema, pulses present Neurological: non-focal, normal sensation, moves all 4 limbs Lymphatic: no nodes Psychiatric: normal affect, A&O x 3 Skin: no rash <Toribio Joyce - Last Filed: 03/23/17 08:31> Dx/Plan (1) Atrial flutter with rapid ventricular response Code(s): I48.92 - UNSPECIFIED ATRIAL FLUTTER Status: Resolved (2) COPD (chronic obstructive pulmonary disease) Status: Chronic (3) Nausea & vomiting Code(s): R11.2 - NAUSEA WITH VOMITING, UNSPECIFIED Status: Acute (4) Diabetes type 2, controlled Code(s): E11.9 - TYPE 2 DIABETES MELLITUS WITHOUT COMPLICATIONS Status: Chronic QualifierTitle: Diabetes mellitus complication status: with unspecified complications Diabetes mellitus group home insulin use: without ship's officer use Qualified Code(s): E11.8 - Type 2 diabetes mellitus with unspecified complications (5) Hypertension Code(s): I10 - ESSENTIAL (PRIMARY) HYPERTENSION Status: Chronic QualifierTitle: Hypertension type: essential hypertension Qualified Code( s): I10 - Essential (primary) hypertension - Plan Plan: 1. Atrial flutter w/RVR - s/p PM placement - tachy has persisted even with dilt drip - Cards has been consulted, appreciate recommendation - Dr. Jasso, with EP, has recommended AV ablation, appreciate his recommendations. - Warfarin has been restarted. INR this am 1.7 - Will consider increase in warfarin to establish therapeutic levels. 2. DM2 - continue home meds - SSI - Glucose has been elevated throughout admission, recommend outpt follow up for management. 3. HTN - Pt has been mostly mildly elevated during admission with one low BP of 107/58 last night and was asymptomatic. - Pt has been asymptomatic when high, max of 177/81 - continue home management, recommend out pt follow up 5. COPD - pt at baseline - continue prn nebs - continue steroids for 1 week 6. N/v - resolved - unlcear as to etiology - start zofran, monitor throughout the day. - possibly related increased dilt dosing Dispo: Stable, will defer to EP and Cards recommendations. <Toribio Joyce - Last Filed: 03/23/17 08:31> Attending Addendum - Attending Addendum I personally evaluated the patient and discussed the management with Dr. Joyce I agree with the History, Examination, Assessment and Plan documented above with any addition or exceptions noted below- Patient feeling better; Denies any SOB/CP. Afebrile VSS. A/P: 1) Aflutter/fib with persistent tachycardia- plan for repeat ablation today per EP; continue diltiazem and dig. 2) DM- stable. 3) HTN- stable. <Shasha Hopkins - Last Filed: 03/23/17 11:30>
[2017-03-23 06:54] LABS: INR-International Normal Ratio 1.7; PTT 43.6 SEC (22.9-36.1); Prothrombin Time 20.3 SEC (12.0-14.7)
[2017-03-23] MEDS: metFORMIN 500 MG TAB PO SCH ×2 (08:00→16:26)
[2017-03-23] MEDS: Cephalexin 250 MG CAP PO SCH ×3 (09:00→20:34)
[2017-03-23] MEDS: Multivitamin W/ Minerals 1 TAB PO SCH (09:00)
[2017-03-23] MEDS: Nystatin 500,000 UNITS/5 ML UDCUP SSW SCH ×4 (09:00→20:34)
[2017-03-23] MEDS: Metoprolol Tartrate 100 MG TAB PO SCH ×2 (09:00→20:34)
[2017-03-23] MEDS: Enoxaparin Sodium 40 MG/0.4 ML SYRINGE SC SCH (09:00)
[2017-03-23] MEDS: Mometasone/Formoterol 120 PUFF INHALER INH SCH ×2 (09:17→20:30)
[2017-03-23 10:55] LABS: #Eosinphils 0.1 thou/uL (0.0-0.7); #Lymphocytes 1.2 thou/uL (1.20-3.40); #Monocytes 0.7 thou/uL (0.11-0.59); #Neutrophils 9.8 thou/uL (1.40-6.50); %Basophils 0.4 % (0.0-1.0); %Eosinophils 0.8 % (0.0-10.0); %Monocytes 6.1 % (0.0-10.0); %Neutrophils 82.8 % (42.0-75.0); Hemoglobin 9.8 g/dL (14.0-18.0); Mean Corpuscular HGB CONC 33.3 g/dL (32.0-36.0); Mean Platelet Volume 7.7 fL (7.4-10.4); Platelet Count 141 thou/uL (130-400); RBC Distribution Width 18.2 % (11.5-14.5); Red Blood Cell (RBC) Count 3.16 mill/uL (4.70-6.10); White Blood Cell (WBC) Count 11.8 thou/uL (4.8-10.8)
[2017-03-23] MEDS ORDERED: diphenhydrAMINE 50 MG/ML VIAL ONE ×2 (11:21→12:19)
[2017-03-23] MEDS ORDERED: PHENYLEPHRINE-NS 100 MCG/ML 10 ML SYRINGE ONE ×2 (11:21→12:19)
[2017-03-23] MEDS ORDERED: Dexamethasone 20 MG/5 ML VIAL ONE (11:21)
[2017-03-23] MEDS ORDERED: Ondansetron HCl/PF 4 MG/2 ML Vial ONE ×2 (11:21→11:45)
[2017-03-23] MEDS ORDERED: Propofol 200 MG/20 ML VIAL ONE (11:21)
[2017-03-23] MEDS ORDERED: Promethazine HCl 25 MG/ML VIAL ONE (11:45)
[2017-03-23] MEDS ORDERED: Midazolam HCl 2 mg/2 ml Vial ONE (11:45)
[2017-03-23] MEDS ORDERED: Scopolamine 1.5 mg/72 hour Patch ONE (11:45)
[2017-03-23] MEDS ORDERED: Metoclopramide HCl 10 MG/2 ML VIAL ONE (11:45)
[2017-03-23] MEDS ORDERED: Dexamethasone 4 mg/ml Vial ONE (11:45)
[2017-03-23] MEDS ORDERED: Propofol 1,000 MG/100 ML VIAL IV ONE (11:46)
[2017-03-23] MEDS ORDERED: Famotidine/PF 20 mg/2ml Vial ONE (11:46)
[2017-03-23] MEDS ORDERED: Heparin 10,000 UNITS/1 ML VIAL ONE (12:04)
[2017-03-23] MEDS ORDERED: Propofol 500 MG/50 ML VIAL ONE (12:39)
[2017-03-23] MEDS ORDERED: DOPamine 400 MG/D5W 250 ML 250 ML ONE (12:55)
[2017-03-23] MEDS ORDERED: Ondansetron HCl/PF 4 MG/2 ML Vial IVP PRN ×2 (14:01→14:21)
[2017-03-23] MEDS ORDERED: Morphine Sulfate 2 MG/ML SYRINGE SLOW IVP PRN (14:01)
[2017-03-23] MEDS ORDERED: Promethazine HCl 25 MG/ML VIAL SLOW IVP PRN (14:01)
[2017-03-23] MEDS ORDERED: Mag-Al 1200 mg/1200 mg/30 ML UDCUP PO PRN (14:21)
[2017-03-23] MEDS ORDERED: diphenhydrAMINE 25 MG CAP PO PRN (14:21)
[2017-03-23] MEDS ORDERED: Silver Sulfadiazine 1% Cream 50 GM JAR TOP PRN (14:21)
[2017-03-23] MEDS ORDERED: Bisacodyl 5 MG TAB PO PRN (14:21)
[2017-03-23] MEDS ORDERED: traMADol HCl 50 MG TAB PO PRN (14:21)
[2017-03-23] MEDS ORDERED: Bisacodyl 10 MG SUPP PR PRN (14:21)
[2017-03-23] MEDS ORDERED: Nitroglycerin 0.4 MG TAB (25 Tab Bottle) SL PRN (14:21)
[2017-03-23] MEDS ORDERED: Temazepam 15 MG CAP PO PRN (14:21)
[2017-03-23] MEDS: Digoxin 0.125 MG TAB PO SCH (16:25)
[2017-03-23] MEDS: Warfarin Sodium 5 MG TAB PO SCH (16:26)
[2017-03-23] MEDS: Atorvastatin Calcium 20 MG TAB PO SCH (20:34)
--- NOTE | 2017-03-24 00:16 | OP ---
DATE OF SERVICE: 03/23/2017 REFERRING PHYSICIAN: Dr. Dorcas Vick. REASON FOR PROCEDURE: Mr. Jiménez is a pleasant 72-year-old man with prior history of atrial arrhythmi as, advanced COPD, not able to tolerate prolonged procedures, and intubation. He also has cardiomyop athy with mild reduced left ventricular systolic function, advanced functional limitation due to dysp pj. He underwent BiV pacemaker implantation by Dr. Copeland on 03/18/2012, followed by an attempted AV vilma ablation, which was do not successful. He is here for a followup AV vilma ablation. PROCEDURE: The patient received deep sedation by Anesthesia specialist. After adequate level of sed ation achieved, the right femoral vein was prepped, draped, and anesthetized using subcutaneous lidoc parul. Under the ultrasound guidance, the right femoral vein was accessed without difficulty. A 6-Fr ench and 8-Malagasy short sheath was introduced to the right femoral vein. Through these, an octapolar catheter was advanced to the right RV, His bundle, and right atrial locations. Mapping, pacing, and recording were performed at each location. Following that, a ThermoCool SF catheter was advanced to the His bundle and then the compact AV vilma area. The AV vilma ablation was performed behind His bundle area achieving complete AV block. Dopa mine was administered and repeat woods were necessary to achieve complete AV block. We were still ab le to pace the His bundle area. Narrow complex QRS with octapolar catheter after the AV vilma ablati on suggestive of intact His bundle area, but block in the AV vilma level. Junctional escape rhythm w as also observed, about 50 beats per minute at baseline. CONCLUSION: Successful AV vilma ablation. PLAN: Continue recovering from pacemaker, consider LVD repositioning or possibly His bundle pacing i n the future after the pacemaker site healed.
--- NOTE | 2017-03-24 06:16 | PDOC.FM ---
- Subjective Subjective: Patient had a good night. At times he seems to be confused, especially about procedures. He had a procedure done yesterday and then this morning he asked myself and the nurse several times about his procedure plans. He denies any chest pain, or palpitations. He does admit to sob that improves after breathing treatments. He is counseled on working on weaning off the O2 today to get back to his baseline. He admits to a cough that improves with the breathing treatments as well. He did have an episode of anxiety overnight from refusing a breathing treatment. He states his breathing improved after the treatment and so did his anxiety. No other concerns this morning. - Objective Vital Signs & Weight: Vital Signs (12 hours) Temp Pulse Resp BP Pulse Ox 03/24/17 05:44 96 22 H 97 03/24/17 05:04 97 03/24/17 04:00 97.5 F L 89 18 136/80 97 03/24/17 00:29 94 18 96 03/23/17 20:34 104 H 22 H 97 03/23/17 20:30 104 H 22 H 97 03/23/17 20:24 97.4 F L 104 H 24 H 149/67 H 97 Weight Weight 72.348 kg I&O: 03/22/17 03/23/17 03/24/17 06:59 06:59 06:59 Intake Total 2084 1694 1630 Output Total 1600 1650 1175 Balance 484 44 455 Result Diagrams: 03/23/17 10:47 03/19/17 07:57 <Toribio Joyce - Last Filed: 03/24/17 08:16> - Objective Vital Signs & Weight: Vital Signs (12 hours) Temp Pulse Resp BP BP Pulse Ox 03/24/17 10:25 98 03/24/17 10:15 98 20 03/24/17 10:03 98 28 H 03/24/17 10:00 89 L 03/24/17 08:05 98.2 F 93 22 H 141/67 H 80 L 03/24/17 05:44 96 22 H 97 03/24/17 05:04 97 03/24/17 04:00 97.5 F L 89 18 136/80 97 03/24/17 00:29 94 18 96 Weight Weight 72.348 kg I&O: 03/23/17 03/24/17 03/25/17 06:59 06:59 06:59 Intake Total 1694 1630 Output Total 1650 1175 Balance 44 455 Result Diagrams: 03/23/17 10:47 03/19/17 07:57 <Shasha Hopkins - Last Filed: 03/24/17 11:18> Phys Exam - Physical Examination HEENT: moist MMs Neck: no nodes Respiratory: wheezing present Cardiovascular: RRR, no significant murmur Gastrointestinal: soft, non-tender, no distention, positive bowel sounds Musculoskeletal: no edema, pulses present Neurological: non-focal, normal sensation, moves all 4 limbs Lymphatic: no nodes Psychiatric: normal affect, A&O x 3 Skin: no rash <Toribio Joyce - Last Filed: 03/24/17 08:16> Dx/Plan (1) Atrial flutter with rapid ventricular response Code(s): I48.92 - UNSPECIFIED ATRIAL FLUTTER Status: Resolved (2) COPD (chronic obstructive pulmonary disease) Status: Chronic (3) Nausea & vomiting Code(s): R11.2 - NAUSEA WITH VOMITING, UNSPECIFIED Status: Acute (4) Diabetes type 2, controlled Code(s): E11.9 - TYPE 2 DIABETES MELLITUS WITHOUT COMPLICATIONS Status: Chronic QualifierTitle: Diabetes mellitus complication status: with unspecified complications Diabetes mellitus fci insulin use: without fci use Qualified Code(s): E11.8 - Type 2 diabetes mellitus with unspecified complications (5) Hypertension Code(s): I10 - ESSENTIAL (PRIMARY) HYPERTENSION Status: Chronic QualifierTitle: Hypertension type: essential hypertension Qualified Code( s): I10 - Essential (primary) hypertension - Plan Plan: 1. Atrial flutter w/RVR - s/p PM placement - tachy has persisted even with dilt drip - Cards has been consulted, appreciate recommendation - Dr. Jasso, with EP, has recommended AV ablation, appreciate his recommendations. - s/p AV ablation yesterday - Continue routine post-op care - Warfarin has been restarted. INR this am 2.7 2. DM2 - continue home meds - SSI - Glucose has been elevated throughout admission, recommend outpt follow up for management. 3. HTN - Pt has been mostly mildly elevated during admission with one low BP of 107/58 last night and was asymptomatic. - Pt has been asymptomatic when high, max of 177/81 - continue home management, recommend out pt follow up 5. COPD - pt at baseline - continue prn nebs - continue steroids for 1 week - Will attempt to wean off O2 today 6. N/v - resolved - unlcear as to etiology - start zofran, monitor throughout the day. - possibly related increased dilt dosing Dispo: Stable, will defer to EP and Cards recommendations. Once cleared from Cards will initiate discharge planning. May consider rehab. <Toribio Joyce - Last Filed: 03/24/17 08:16> Attending Addendum - Attending Addendum I personally evaluated the patient and discussed the management with Dr. Joyce I agree with the History, Examination, Assessment and Plan documented above with any addition or exceptions noted below- Patient without complaints. Had some confusion in energy broker with restlessness, removing oxygen. Afebrile VSS A/P: 1) Afib/flutter- heart rate improved s/p repeat ablation; continue current meds and cardiology recommendations, 2) COPD- continue current meds/O2. 3) DM- stable. <Shasha Hopkins - Last Filed: 03/24/17 11:18>
[2017-03-24 06:38] LABS: INR-International Normal Ratio 2.7; PTT 52.4 SEC (22.9-36.1); Prothrombin Time 29.8 SEC (12.0-14.7)
[2017-03-24] MEDS: Mometasone/Formoterol 120 PUFF INHALER INH SCH ×2 (10:15→18:04)
[2017-03-24] MEDS: metFORMIN 500 MG TAB PO SCH ×2 (10:25→17:24)
[2017-03-24] MEDS: Cephalexin 250 MG CAP PO SCH ×3 (10:25→21:19)
[2017-03-24] MEDS: Digoxin 0.125 MG TAB PO SCH (10:25)
[2017-03-24] MEDS: Metoprolol Tartrate 100 MG TAB PO SCH (10:25)
[2017-03-24] MEDS: Enoxaparin Sodium 40 MG/0.4 ML SYRINGE SC SCH (10:26)
[2017-03-24] MEDS: Multivitamin W/ Minerals 1 TAB PO SCH (10:26)
[2017-03-24] MEDS: Nystatin 500,000 UNITS/5 ML UDCUP SSW SCH ×4 (10:33→21:19)
--- NOTE | 2017-03-24 11:15 | PRG ---
DATE OF SERVICE: 03/24/2017 SUBJECTIVE: Mr. Jiménez is doing well one day after his redo AV vilma ablation. OBJECTIVE: VITAL SIGNS: Blood pressure is 141/67, heart rate 93, respirations 20, temperature 98.2 degrees Fahrenheit. GENERAL: He is alert and oriented man in no apparent distress. NECK: Supple. Jugular veins not distended. CHEST: Coarse without crackles. CARDIOVASCULAR: Heart sounds are regular to rate and rhythm. No murmur or gallop. Left precordial pacemaker insertion site is well healed. ABDOMEN: Benign. Bowel sounds positive. EXTREMITIES: Lower extremities without edema, clubbing or cyanosis. Pulses are adequate. NEUROLOGIC: Patient is nonfocal. MUSCULOSKELETAL: No joint swelling or deformities. SKIN: Without rash. Right catheter insertion sites are without reaction. DATABASE: Telemetry strips reviewed reveals AV pacing, occasional PVCs. No atrial fibrillation or conducted beats are noted. LABORATORY DATA: None new since yesterday. ASSESSMENT AND PLAN: 1. Mr. Jiménez is a pleasant 72-year-old man with history of congestive heart failure, mild to moderately reduced left ventricular systolic function, paroxysmal atrial arrhythmias with atypical atrial flutter demonstrated on EKGs which is very difficult to rate control. Hence he has advanced COPD. He underwent BiV pacemaker placement and AV vilma ablation by Dr. Kimbrough on 2017, though ablation was not fully successful, he required redo ablation yesterday which eliminated AV conduction. At this point, he continues to be in AV block. 2. BiV pacemaker in place, the LV lead position in the mid anterior vein. We will monitor him. We will consider his bundle pacing or LV lead repositioning. 3. Mild cardiomyopathy. Follow up as before. 4. Paroxysmal atypical atrial flutter, currently in sinus rhythm, will turn atrial ATPs on at a later time. Continue chronic anticoagulation with warfarin. The patient could not afford Multaq. 5. Routine followup for wound check in 10 days in the office. MARY
[2017-03-24] MEDS ORDERED: Furosemide 20 MG/2 ML VIAL SLOW IVP SCH (12:30)
--- NOTE | 2017-03-24 12:30 | PRG ---
DATE OF SERVICE: 03/24/2017 HISTORY: Mr. Jiménez is feeling better today, no chest pain or pressure. He seems somewhat confused, mildly. I think he is going to have a procedure done. We explained to him that he already had that done yesterday. He has no chest pain. PHYSICAL EXAMINATION: VITAL SIGNS: Blood pressure 133/84, pulse is 70 and it is paced. LUNGS: Clear. CARDIAC: Normal S1 and S2. ASSESSMENT: 1. 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 2. Status post atrioventricular junction ablation. 3. Chronic obstructive pulmonary disease. PLAN: 1. We will reduce the diltiazem dose. 2. Stop beta pawel. 3. Hold Coumadin tonight as his INR has gone from 1.7-2.7. I think it is probably going to be a lot higher tomorrow. 4. Reevaluate tomorrow.
[2017-03-24] MEDS ORDERED: Warfarin Sodium 5 MG TAB PO SCH (17:00)
[2017-03-24] MEDS: Atorvastatin Calcium 20 MG TAB PO SCH (21:19)
--- NOTE | 2017-03-25 00:50 | EKG ---
Test Reason : POST ABLATION Blood Pressure : / mmHG Vent. Rate : 090 BPM Atrial Rate : 113 BPM P-R Int : 000 ms QRS Dur : 150 ms QT Int : 424 ms P-R-T Axes : 000 -85 083 degrees QTc Int : 518 ms AV sequential or dual chamber electronic pacemaker When compared with ECG of 20-MAR-2017 18:55, (Unconfirmed) Vent. rate has decreased BY 42 BPM Confirmed by JAMIE ZEPEDA, SBennie ([id number]) on 03/25/2017 12:50:18 AM Referred By: [facility] Confirmed By:DR. Nikhil AYALA MD
--- NOTE | 2017-03-25 00:51 | EKG ---
Test Reason : Blood Pressure : / mmHG Vent. Rate : 090 BPM Atrial Rate : 086 BPM P-R Int : 000 ms QRS Dur : 122 ms QT Int : 392 ms P-R-T Axes : 000 222 056 degrees QTc Int : 479 ms AV sequential or dual chamber electronic pacemaker When compared with ECG of 23-MAR-2017 14:30, (Unconfirmed) No significant change was found Confirmed by JAMIE ZEPEDA, . S. (4) on 03/25/2017 12:51:40 AM Referred By: [facility] Confirmed By:DR. Nikhil AYALA MD
[2017-03-25 05:12] LABS: PTT 46.8 SEC (22.9-36.1); Prothrombin Time 23.2 SEC (12.0-14.7)
--- NOTE | 2017-03-25 06:24 | PDOC.FM ---
- Subjective Subjective: Patient states he had a good night. He was counseled on the use of home health and he believes he would benefit greatly from that because sometimes he "gets confused with his meds." He states his breathing is better and his walking have been better. He was counseled on the importance of using his O2 to keep his saturations up. He denies chest pain, palpitations, n/v/d, fevers, or chills. He states that he is improving. No other concerns are offered. - Objective Vital Signs & Weight: Vital Signs (12 hours) Temp Pulse Resp BP BP Pulse Ox 03/25/17 04:00 97.9 F 68 18 125/65 95 03/25/17 02:10 89 16 95 03/24/17 23:10 87 16 94 L 03/24/17 20:35 97.8 F 108 H 22 H 93 L 03/24/17 19:20 97.8 F 108 H 22 H 165/75 H 93 L Weight Weight 72.348 kg I&O: 03/23/17 03/24/17 03/25/17 06:59 06:59 06:59 Intake Total 1694 1630 960 Output Total 1650 1175 800 Balance 44 455 160 Result Diagrams: 03/23/17 10:47 03/25/17 04:41 <Toribio Jocye - Last Filed: 03/25/17 08:42> - Objective Vital Signs & Weight: Vital Signs (12 hours) Temp Pulse Resp BP Pulse Ox 03/25/17 09:34 60 20 97 03/25/17 09:07 97 03/25/17 09:03 60 20 97 03/25/17 08:59 69 03/25/17 08:56 97.9 F 67 19 130/61 95 03/25/17 04:00 97.9 F 68 18 125/65 95 03/25/17 02:10 89 16 95 Weight Admit Weight 75.931 kg Weight 70.76 kg I&O: 03/24/17 03/25/17 03/26/17 06:59 06:59 06:59 Intake Total 1630 960 Output Total 1175 800 Balance 455 160 Result Diagrams: 03/23/17 10:47 03/25/17 04:41 <Shasha Hopkins - Last Filed: 03/25/17 12:04> Phys Exam - Physical Examination Constitutional: NAD HEENT: PERRLA, moist MMs Neck: no nodes Respiratory: no wheezing, clear to auscultation bilateral Cardiovascular: RRR, no significant murmur Gastrointestinal: soft, non-tender, no distention, positive bowel sounds Musculoskeletal: no edema, pulses present Neurological: non-focal, normal sensation, moves all 4 limbs Lymphatic: no nodes Psychiatric: normal affect, A&O x 3 Skin: no rash <Toribio Joyce - Last Filed: 03/25/17 08:42> Dx/Plan (1) Atrial flutter with rapid ventricular response Code(s): I48.92 - UNSPECIFIED ATRIAL FLUTTER Status: Resolved (2) COPD (chronic obstructive pulmonary disease) Status: Chronic (3) Nausea & vomiting Code(s): R11.2 - NAUSEA WITH VOMITING, UNSPECIFIED Status: Acute (4) Diabetes type 2, controlled Code(s): E11.9 - TYPE 2 DIABETES MELLITUS WITHOUT COMPLICATIONS Status: Chronic QualifierTitle: Diabetes mellitus complication status: with unspecified complications Diabetes mellitus termite exterminator insulin use: without termite exterminator use Qualified Code(s): E11.8 - Type 2 diabetes mellitus with unspecified complications (5) Hypertension Code(s): I10 - ESSENTIAL (PRIMARY) HYPERTENSION Status: Chronic QualifierTitle: Hypertension type: essential hypertension Qualified Code( s): I10 - Essential (primary) hypertension - Plan Plan: Plan: 1. Atrial flutter w/RVR - s/p PM placement - Decreased dilt dosage and stopped Beta pawel - Cards has been consulted, appreciate Dr. Vick's recommendation - Dr. Jasso, with EP, has recommended AV ablation, appreciate his recommendations. - s/p AV ablation - Continue routine post-op care. EP would like to see in office in 10 days - Warfarin held last night. INR this am 2.0 2. DM2 - continue home meds - SSI - Glucose has been elevated throughout admission, recommend outpt follow up for management. 3. HTN - Pt has been mostly mildly elevated during admission with one low BP of 107/58 last night and was asymptomatic. - Pt has been asymptomatic when high, max of 177/81 - continue home management, recommend out pt follow up 5. COPD - pt at baseline - continue nebs - continue steroids for 1 week - Gave one dose of IV lasix to see if that will help - Will attempt to wean off O2 today and may have to go home on more chronic O2 6. N/v - resolved Dispo: Stable, will defer to EP and Cards recommendations. Once cleared from Cards will initiate discharge planning. May consider rehab. <Toribio Joyce - Last Filed: 03/25/17 08:42> Attending Addendum - Attending Addendum I personally evaluated the patient and discussed the management with Dr. Joyce I agree with the History, Examination, Assessment and Plan documented above with any addition or exceptions noted below- Patient without complaints. States that breathing is better. Afebrile VSS. A/P: Afib/flutter a/p ablation- HR improved; appreciate cardiology assistance. 2) terminal operator anticoagulation- warfarin adjusted; continue to monitor. 3) D/c planning- case mgmt for home health to assist with medication management, PT. <Shasha Hopkins - Last Filed: 03/25/17 12:04>
[2017-03-25 06:49] LABS: Anion Gap 16 mmol/L (10-20); BUN (Urea Nitrogen) 16 mg/dL (8.4-25.7); Calc. Creatinine Clearance 86 mL/min (70-130); Calcium 8.5 mg/dL (7.8-10.44); Carbon Dioxide 18 mmol/L (23-31); Chloride 105 mmol/L (98-107); Estimated GFR-MDRD Greater than 90; Glucose 119 mg/dL (83-110); Potassium 3.8 mmol/L (3.5-5.1); Sodium 135 mmol/L (136-145)
[2017-03-25 08:27] VITALS: BMI 23.7
[2017-03-25] MEDS: metFORMIN 500 MG TAB PO SCH ×2 (08:58→17:36)
[2017-03-25] MEDS: Multivitamin W/ Minerals 1 TAB PO SCH (08:59)
[2017-03-25] MEDS: Digoxin 0.125 MG TAB PO SCH (08:59)
[2017-03-25] MEDS: predniSONE 20 MG TAB PO SCH (08:59)
[2017-03-25] MEDS: Nystatin 500,000 UNITS/5 ML UDCUP SSW SCH ×4 (09:01→22:15)
[2017-03-25] MEDS: Mometasone/Formoterol 120 PUFF INHALER INH SCH ×2 (09:34→19:37)
--- NOTE | 2017-03-25 09:48 | PRG ---
DATE OF SERVICE: 03/25/2017 SUBJECTIVE: Mr. Jiménez feels better today, no complaints, breathing better. OBJECTIVE: VITAL SIGNS: Blood pressure 130/60, pulse 60, it is regular. LUNGS: Clear. CARDIAC: Normal S1, normal S2. ABDOMEN: Soft, nontender. EXTREMITIES: No edema. ASSESSMENT: 1. Atrial fibrillation with tachycardia-bradycardia. 2. Recent atrioventricular junction ablation. PLAN: 1. We will go ahead and discontinue the diltiazem. 2. The INR is actually surprisingly low at 2, Coumadin dose was held last night; therefore, we will give a dose of Lovenox tonight. 3. Continue digoxin. 4. Probably home soon, possibly tomorrow.
[2017-03-25] MEDS: Cephalexin 250 MG CAP PO SCH ×3 (10:18→21:20)
[2017-03-25] MEDS: HumaLOG 300 UNITS/3 ML VIAL SC PRN ×2 (12:08→17:36)
--- NOTE | 2017-03-25 15:26 | PRG ---
DATE OF SERVICE: 03/25/2017 SUBJECTIVE: Mr. Jiménez is doing well 2 days after his redo AV vilma ablation, no dyspnea, no chest pain. His wound sites are healing well and without reaction. His breathing is stable. OBJECTIVE DATA: VITAL SIGNS: Blood pressure 136/65, respirations 19, temperature 97.9 degrees Fahrenheit. GENERAL: He is alert and oriented man in no apparent distress. NECK: Supple. Jugular veins not distended. CHEST: Coarse, but no active wheezing or crackles heard. CARDIOVASCULAR: Heart sounds are regular to rate and rhythm. Left precordial pacemaker insertion site is well healed and is without reaction. ABDOMEN: Benign. Bowel sounds positive. Right groin catheterization site is without reaction. EXTREMITIES: Lower extremities without edema, clubbing, or cyanosis. DATABASE: Telemetry strips reveal return to atrial fibrillation/flutter, V pacing suggestive of AV block. LABORATORY DATA: INR is 2.0. ASSESSMENT: 1. Mr. Jiménez is a 72-year-old man with a history of advanced chronic obstructive pulmonary disease, mild cardiomyopathy with recurrent atrial arrhythmias, atypical atrial flutter eventually treated with AV vilma ablation which had to be redone due to recurrent AV conduction 2 days ago. He tolerated the procedure well. Currently continues in AV block. 2. Anticoagulation, now therapeutic INR levels. 4. Advanced chronic obstructive pulmonary disease. Continue monitoring. PLAN: 1. Routine followup in the office for a wound check. 2. Continue anticoagulation. 3. BiV pacemaker in place from a week ago with suboptimal LV lead locatioin. Will continue monitor it for now. technician terminal and repeater His pacing or LV lindsey repositioning could considered. MARY
[2017-03-25] MEDS ORDERED: Warfarin Sodium 5 MG TAB PO SCH (17:00)
[2017-03-25] MEDS ORDERED: Enoxaparin Sodium 80 MG/0.8 ML SYRINGE SC SCH (18:00)
[2017-03-25] MEDS ORDERED: Enoxaparin Sodium 40 MG/0.4 ML SYRINGE SC SCH (18:00)
[2017-03-25] MEDS: Atorvastatin Calcium 20 MG TAB PO SCH (21:20)
[2017-03-26 06:46] LABS: INR-International Normal Ratio 2.1; PTT 42.1 SEC (22.9-36.1); Prothrombin Time 23.9 SEC (12.0-14.7)
[2017-03-26] MEDS: Mometasone/Formoterol 120 PUFF INHALER INH SCH (07:47)
--- NOTE | 2017-03-26 08:42 | PDOC.FM ---
- Subjective Subjective: Patient had a good night and slept "like a rock." He also notes he has been ready to go home for a few days. He denies chest pain, sob, palpitations, n/v/d , fever, chills, or cough. He states he has been able to get up and walk around the halls where he is getting better, but is winded afterwards. He has had no further complaints. No other concerns at this time. - Objective Vital Signs & Weight: Vital Signs (12 hours) Temp Pulse Resp BP BP Pulse Ox 03/26/17 08:00 97.5 F L 66 17 173/79 H 98 03/26/17 07:47 86 24 H 94 L 03/26/17 07:33 94 L 03/26/17 07:29 86 24 H 94 L 03/26/17 04:35 95 03/26/17 04:00 97.9 F 65 18 139/66 95 03/26/17 02:13 95 03/25/17 23:39 95 Weight Admit Weight 75.931 kg Weight 71.577 kg I&O: 03/25/17 03/26/17 03/27/17 06:59 06:59 06:59 Intake Total 960 1360 Output Total 800 175 Balance 160 1185 Result Diagrams: 03/23/17 10:47 03/25/17 04:41 <Toribio Joyce - Last Filed: 03/26/17 08:40> - Objective Vital Signs & Weight: Weight Admit Weight 75.931 kg Weight 71.577 kg Result Diagrams: 03/23/17 10:47 03/25/17 04:41 <Shasha Hopkins - Last Filed: 03/29/17 15:00> Phys Exam - Physical Examination HEENT: PERRLA, moist MMs Neck: no nodes, no JVD Respiratory: no wheezing, clear to auscultation bilateral Cardiovascular: RRR, no significant murmur Gastrointestinal: soft, non-tender, no distention, positive bowel sounds Musculoskeletal: no edema, pulses present Neurological: non-focal, normal sensation, moves all 4 limbs Lymphatic: no nodes Psychiatric: normal affect, A&O x 3 Skin: no rash <Toribio Joyce - Last Filed: 03/26/17 08:40> Dx/Plan (1) Atrial flutter with rapid ventricular response Code(s): I48.92 - UNSPECIFIED ATRIAL FLUTTER Status: Resolved (2) COPD (chronic obstructive pulmonary disease) Status: Chronic (3) Nausea & vomiting Code(s): R11.2 - NAUSEA WITH VOMITING, UNSPECIFIED Status: Acute (4) Diabetes type 2, controlled Code(s): E11.9 - TYPE 2 DIABETES MELLITUS WITHOUT COMPLICATIONS Status: Chronic QualifierTitle: Diabetes mellitus complication status: with unspecified complications Diabetes mellitus exterminator termite insulin use: without exterminator termite use Qualified Code(s): E11.8 - Type 2 diabetes mellitus with unspecified complications (5) Hypertension Code(s): I10 - ESSENTIAL (PRIMARY) HYPERTENSION Status: Chronic QualifierTitle: Hypertension type: essential hypertension Qualified Code( s): I10 - Essential (primary) hypertension - Plan Plan: 1. Atrial flutter w/RVR - s/p PM placement - Decreased dilt dosage and stopped Beta pawel - Cards has been consulted, appreciate Dr. Vick's recommendation - Dr. Jasso, with EP, has recommended AV ablation, appreciate his recommendations. - s/p AV ablation - Continue routine post-op care. EP would like to see in office in 10 days - Warfarin held last night. INR this am 2.1 2. DM2 - continue home meds - SSI - Glucose has been elevated throughout admission, recommend outpt follow up for management. 3. HTN - Pt has been mostly mildly elevated during admission with one low BP of 107/58 last night and was asymptomatic. - Pt has been asymptomatic when high, max of 177/81 - continue home management, recommend out pt follow up 5. COPD - pt at baseline - continue nebs - continue steroids for 1 week - Gave one dose of IV lasix to see if that will help - Will attempt to wean off O2 today and may have to go home on more chronic O2 6. N/v - resolved Dispo: Stable, will defer to EP and Cards recommendations. Once cleared from Cards will initiate discharge planning. <Toribio Joyce - Last Filed: 03/26/17 08:40> Attending Addendum - Attending Addendum I personally evaluated the patient and discussed the management with Dr. Joyce on 03/26/17 I agree with the History, Examination, Assessment and Plan documented above with any addition or exceptions noted below- Patient without complaints. Ready to go home. Walking further with PT. Denies any SOB. Afebrile VSS. A/P: 1) A- flutter/A-fib- s/p ablation- HR has been stable; taken off several rate control meds. 2) COPD- stable. D/C home today if okay with cardiology. Follow-up arrangements to be made with [facility]. <Shasha Hopkins - Last Filed: 03/29/17 15:00>
[2017-03-26] MEDS ORDERED: Losartan 25 MG TAB PO SCH (09:00)
[2017-03-26] MEDS: metFORMIN 500 MG TAB PO SCH (09:10)
[2017-03-26] MEDS: Digoxin 0.125 MG TAB PO SCH (09:10)
[2017-03-26] MEDS: predniSONE 20 MG TAB PO SCH (09:10)
[2017-03-26] MEDS: Multivitamin W/ Minerals 1 TAB PO SCH (09:10)
[2017-03-26] MEDS: Nystatin 500,000 UNITS/5 ML UDCUP SSW SCH ×2 (09:10→11:44)
--- NOTE | 2017-03-26 09:14 | PRG ---
DATE OF SERVICE: 03/26/2017 SUBJECTIVE: Mr. Jiménez is doing much better. No chest pain, no chest pressure. His breathing has im proved. PHYSICAL EXAMINATION: VITAL SIGNS: Blood pressure most recently was high 173/79, pulse is 60, it is paced. LUNGS: Clear. CARDIAC: Normal S1, normal S2. LABORATORY DATA: INR is 2.1. ASSESSMENT: 1. Tachycardia-bradycardia, ultimately treated with a successful atrioventricular junction ablation. 2. Biventricular pacemaker placed with suboptimal placement of left ventricular lead. 3. Coronary artery disease. 4. Hypertension. PLAN: 1. Add Losartan 50 mg a day. 2. He is on Coumadin aiming for INR of 2-3. 3. At some point, we will need outpatient potassium level checked. He did have high potassium earli er this admission, but he was very ill at that point from multiple problems. 4. If needed, furosemide can be added. 5. Asked to come back and see us in the office in a couple of weeks.
--- NOTE | 2017-03-26 11:08 | PDOC.CTH ---
<Anaya Urbano - Last Filed: 03/26/17 13:11> Cardiology Progress Note - Subjective EP Progress Note Patient resting comfortably in bed. He has been up walking in the halls. He reports doing well with this but that it does cause moderate shortness of breath. He denies any dizziness, palpitation, or heart racing sensation. He reports feeling well and eagerly awaits discharge home. Denies fever, chills, malaise, stroke or stroke like symptoms. Reports some mild pain/tenderness at PPM implant site. - ROS shortness of breath - Objective Vital Signs Temp Pulse Resp BP BP Pulse Ox 03/26/17 09:10 66 03/26/17 08:00 97.5 F L 66 17 173/79 H 98 03/26/17 07:47 86 24 H 94 L 03/26/17 07:33 94 L 03/26/17 07:29 86 24 H 94 L 03/26/17 04:35 95 03/26/17 04:00 97.9 F 65 18 139/66 95 03/26/17 02:13 95 03/25/17 23:39 95 Admit Weight 167 lb 6.4 oz Weight 157 lb 12.8 oz 03/25/17 03/26/17 03/27/17 06:59 06:59 06:59 Intake Total 960 1360 240 Output Total 800 175 Balance 160 1185 240 - Physical Examination General/Neuro: alert & oriented x3, NAD Neck: no JVD present Lungs: unlabored respirations, other: (right lower lobe crackles) Heart: RRR Abdomen: NT/ND Extremities: other: (no edema BLE) - Telemetry Telemetry Rhythm: demand pacing - Labs Result Diagrams: 03/23/17 10:47 03/25/17 04:41 Troponin/CKMB - Assessment/Plan 1. AFib/flutter with RVR- s/p AV vilma modification with redo ablation achieving complete AV block on 03/23. 2. Complete AV block- as above. Current rhythm- demand AV pacing with paroxysmal Afib/flutter 3. BiV [employer] Solara Quad CHIEF CLIENT OFFICER-P placed 03/18/[address] Antonio. Mode: VVI at 50. Sub-optimal LV lead placement, considering His bundle pacing vs lead revision once recovered from PPM implant. Ok for discharge from EP perspective. Discharge planning:Follow up with EP scheduled on 04/01/17 at 12:00 at [facility] in [place]. <Eliezer Jasso - Last Filed: 03/26/17 16:33> Cardiology Progress Note - Objective Vital Signs Temp Pulse Pulse Pulse Resp BP BP 03/26/17 16:00 97.5 F L 67 19 03/26/17 15:30 80 24 H 03/26/17 11:41 97.8 F 18 03/26/17 11:19 92 24 H 03/26/17 10:38 80 62 194/81 H 160/73 H 03/26/17 09:10 66 03/26/17 08:00 97.5 F L 66 17 03/26/17 07:47 86 24 H 03/26/17 07:33 03/26/17 07:29 86 24 H 03/26/17 04:35 BP Pulse Ox Pulse Ox Pulse Ox 03/26/17 16:00 142/67 H 93 L 03/26/17 15:30 03/26/17 11:41 137/62 95 03/26/17 11:19 03/26/17 10:38 95 93 L 03/26/17 09:10 03/26/17 08:00 173/79 H 98 03/26/17 07:47 94 L 03/26/17 07:33 94 L 03/26/17 07:29 94 L 03/26/17 04:35 95 Admit Weight 167 lb 6.4 oz Weight 157 lb 12.8 oz 03/25/17 03/26/17 03/27/17 06:59 06:59 06:59 Intake Total 960 1360 480 Output Total 800 175 Balance 160 1185 480 - Labs Result Diagrams: 03/23/17 10:47 03/25/17 04:41 Troponin/CKMB CK-MB (CK-2) 1.5 ng/mL (0-6.6) 03/17/17 15:24 Troponin I 0.017 ng/mL (< 0.028) 03/17/17 22:46 Attending Addendum - Attending Addendum I personally evaluated the patient and discussed the management with Dr. [] I agree with the History, Examination, Assessment and Plan documented above.
[2017-03-26] MEDS: Cephalexin 250 MG CAP PO SCH ×2 (11:38→15:43)
[2017-03-26 16:13] VITALS: BP 142/67; TEMP 97.5
--- NOTE | 2017-03-27 08:13 | DIS-2 ---
DATE OF ADMISSION: 03/17/2017 DATE OF DISCHARGE: 03/26/2017 RESIDENT: Toribio Joyce MD ADMITTING ATTENDING: Brenda Davison M.D. DISCHARGE ATTENDING: Shasha Hopkins M.D. CONSULTS: 1. Cardiology with Dr. Vick. 2. Electrophysiology with Dr. Jasso. 3. Pulmonology with Dr. Jiménez. 4. Cardiac rehabilitation as well as case management. PROCEDURES: The patient underwent a chest x-ray on 03/17/2017 that showed emphysema, right upper lobe pulmonary scar, prominent interstitial markings probably chronic and no cardiomegaly. The patient underwent a successful implantation of a LABOR REPRESENTATIVE pacemaker, AV node modification without complete heart block. The patient underwent a chest x-ray on 03/18/2017 that showed interval placement of 3-lead transvenous pacing device via left subclavian approach with leads overlying the region of the right atrium, right ventricle and coronary sinus, no pneumothorax seen. Interstitial prominence of pulmonary hyperinflation, interstitial prominence is slightly more prominent on prior imaging, which may slightly signify chronic changes superimposed interstitial edema. Followup PA and lateral imaging following treatment is advised. The patient also underwent on 03/23/2017 an AV vilma ablation for recurrent atrial fibrillation and tachycardia. PRIMARY DIAGNOSES: 1. Atrial flutter with rapid ventricular response. 2. Chronic obstructive pulmonary disease. 3. Type 2 diabetes, controlled. 4. Hypertension. 5. Some nausea and vomiting. DISCHARGE MEDICATIONS: 1. Symbicort 80/4.5 two puffs inhaled b.i.d. 2. Cetirizine 10 mg. 3. Lipitor 20 mg. 4. Metformin 500 mg b.i.d. with meals. 5. Aspirin 81 mg. 6. Multivitamin. 7. Albuterol sulfate 1 puff p.o. p.r.n. 8. Acetaminophen with codeine 300/30 mg q.6 hours p.r.n. 9. Bactrim double strength b.i.d. 10. Rifampin 150 mg b.i.d. 11. Prednisone 10 mg p.o. q.a.m. with meals. 12. Keflex 250 mg p.o. t.i.d. 13. Digoxin 0.125 mg p.o. daily. 14. Losartan 50 mg p.o. daily. 15. Warfarin 5 mg p.o. at 1700 hours. DISCONTINUED MEDICATIONS: 1. Lisinopril 25 mg. 2. Metoprolol tartrate 50 mg b.i.d. 3. Warfarin 5 mg as directed. 4. Warfarin 7.5 mg as directed. 5. Diltiazem 240 mg daily. 6. Multaq 400 mg p.o. b.i.d. HISTORY OF PRESENT ILLNESS AND HOSPITAL COURSE: This is a 71-year-old male with past medical history of paroxysmal atrial fibrillation with RVR and COPD, who presents with shortness of breath and palpitations since yesterday afternoon. The patient states he was at home and started feeling shortness of breath, palpitations, and then he went to his landing signal officer where he was found to be in atrial fibrillation again. He has a recent hospitalization with a newly diagnosis of paroxysmal atrial fibrillation, where he attempted to have an EPS study done; however, twice when he got down to the ER, atrial fibrillation rhythm could not be induced for the study. The patient was subsequently sent home; however, as mentioned above during this appointment today, he was found to be in atrial fibrillation and was told to come back to [facility] and was admitted with plan of doing an EPS study with the pacemaker placement on following day on 03/18/2017. As mentioned above, his last EPS study was on 03/08/2017 with no inducible atrial arrhythmias at that time. Today in the ER, he was found to be in the 130s and 140s. He was started on diltiazem drip and was transferred to the [facility]. In the ER, he received 5 mg IV metoprolol, 20 mg IV diltiazem and then he was started on a 5 mL per hour drip of diltiazem. He was also provided with normal saline. During this hospitalization, the patient was seen by Cardiology, Dr. Vick, and he recommended the patient undergo biventricular pacemaker insertion and AV junction ablation. The patient was then continued on the Cardizem with reduction of the beta blockers at that time because of COPD and also started on digoxin and resuming his Coumadin at that time. The patient was then seen by Dr. Jiménez with Pulmonology, who recommended to continue nebulized medications and some steroids to improve his oxygen requirement, although he was not diagnosed with the COPD exacerbation. Dr. Jasso with Electrophysiology saw the patient, he is actually the physician that placed the AICD and did the ablation. On 03/19/2017, Dr. Jasso saw this patient and recommended the p.o. transition to get some better long-term coverage as an outpatient. The patient was then recovering well and then on , developed some nausea and vomiting and some elevated heart rate, so the Cardene drip was then reinitiated. After that time, Dr. Jasso had recommended that he go back for a further ablation because he did note that the first ablation was likely not going to cover it totally. From that point, the patient no longer had any problems with his heart rate and he was being in a paced rhythm that was working well with no further junctional arrhythmias originating. The patient had some notable lab values during this hospitalization of digoxin level of 1.87 and INR that ranged from 1.3 on 2017 up to 2.1 on day of discharge. The patient also had hemoglobin that ranged from 12.0 down to 9.8 on day of discharge. The patient had a white blood cell count of 8.6 that ranged to 11.8 on day of discharge likely due to the steroids that he was on. The patient was afebrile during the entire hospitalization. He had a lot of fluctuations with his heart rate that was medication-induced. Otherwise, his oxygen requirement, he did require oxygen desaturate in the 90s up until the day of discharge when he underwent home O2 evaluation where his resting oxygen saturation was 92% and his exercising or ambulating oxygen saturation was 95% on room air without any supplementation. At that time, it was determined that he will not need any home oxygen to go home on, as long as he has close followup and to continue on his medical management. Otherwise, the patient responded well, recovered well and was discharged in appropriate condition with all written precautions expressed to the patient. DISPOSITION: Stable. DISCHARGE INSTRUCTIONS: 1. Location: He will be discharged home under the care of himself. 2. Diet: Diet will be a heart healthy and diabetic diet. 3. Activity: Activity will be with cardiopulmonary restrictions. 4. Followup: Follow up will be with the [facility] on 2017 as well as the [facility] in [place] on 04/02/2017 at 1:[address] Eliezer Jasso in [address] Vick in 14 days to discuss further management of his condition. [facility]
[2017-03-27] MEDS ORDERED: Aspirin 81 mg Enteric Coated Tablet PO SCH (09:00)
== END 2017-03-26 16:21 | disposition home or self-care (01) | DRG 243 ==
LOC: ERS 15:08 → IMCU/EMU 16:39 → 2NO 03-19 20:56
PROVIDERS: ADMIT Internal Medicine; ATTEND Internal Medicine
PROC: 0JH606Z Insertion of Pacemaker, Dual Chamber into Chest Subcutaneous Tissue and Fascia, Open Approach (ICD-10-PCS; principal; 2017-03-18)
PROC: 02H63JZ Insertion of Pacemaker Lead into Right Atrium, Percutaneous Approach (ICD-10-PCS; 2017-03-18)
PROC: 02HK3JZ Insertion of Pacemaker Lead into Right Ventricle, Percutaneous Approach (ICD-10-PCS; 2017-03-18)
PROC: 02583ZZ Destruction of Conduction Mechanism, Percutaneous Approach (ICD-10-PCS; 2017-03-23)
PROC: 02K83ZZ Map Conduction Mechanism, Percutaneous Approach (ICD-10-PCS; 2017-03-23)
PROC: 4A023FZ Measurement of Cardiac Rhythm, Percutaneous Approach (ICD-10-PCS; 2017-03-23)
PROC: 4A0234Z Measurement of Cardiac Electrical Activity, Percutaneous Approach (ICD-10-PCS; 2017-03-23)
DX: I49.5 Sick sinus syndrome (principal); I48.92 Unspecified atrial flutter; I44.2 Atrioventricular block, complete; E11.65 Type 2 diabetes mellitus with hyperglycemia; B37.0 Candidal stomatitis; I42.9 Cardiomyopathy, unspecified; I48.0 Paroxysmal atrial fibrillation; J44.1 Chronic obstructive pulmonary disease with (acute) exacerbation; I10 Essential (primary) hypertension; G47.33 Obstructive sleep apnea (adult) (pediatric); I25.10 Atherosclerotic heart disease of native coronary artery without angina pectoris; Z95.5 Presence of coronary angioplasty implant and graft; Z79.82 Long term (current) use of aspirin; Z87.891 Personal history of nicotine dependence; Z79.01 Long term (current) use of anticoagulants
CPT/HCPCS: 33208; 33225; 36005; 36415; 36416; 71045; 75820; 76942; 80048; 80053; 80162; 82274; 82550; 82553; 82728; 83540; 83550; 83690; 83880; 84443; 84484; 85014; 85018; 85025; 85610; 85730; 93005; 93010; 93623; 93650; 93798; 94640; 94660; 94664; 94760; 96365; 96366; 96375; 96376; A4216; C1730; C1769; C1882; C1898; C1900; C2630; J0282; J0690; J1100; J1160; J1200; J1265; J1580; J1644; J1650; J1940; J2250; J2405; J2550; J2704; J2765; J3010; J7050; J7070; J7506; J7620; S0028

== ENCOUNTER 2017-04-22 09:28 | Emergency (ER) | payer MEDICARE ==
[2017-04-22 09:57] LABS: #Eosinphils 0.1 thou/uL (0.0-0.7); #Lymphocytes 1.7 thou/uL (1.20-3.40); #Monocytes 0.7 thou/uL (0.11-0.59); #Neutrophils 11.2 thou/uL (1.40-6.50); %Basophils 0.4 % (0.0-1.0); %Eosinophils 0.4 % (0.0-10.0); %Lymphocytes 12.4 % (21.0-51.0); %Monocytes 5.2 % (0.0-10.0); %Neutrophils 81.7 % (42.0-75.0); Hemoglobin 12.1 g/dL (14.0-18.0); Mean Corpuscular HGB CONC 32.5 g/dL (32.0-36.0); Mean Corpuscular Hemoglobin 29.9 pg (27.0-31.0); Mean Platelet Volume 8.4 fL (7.4-10.4); Platelet Count 239 thou/uL (130-400); RBC Distribution Width 17.2 % (11.5-14.5); Red Blood Cell (RBC) Count 4.04 mill/uL (4.70-6.10); White Blood Cell (WBC) Count 13.7 thou/uL (4.8-10.8)
[2017-04-22 10:21] LABS: ALT (SGPT) 11 U/L (8-55); AST (SGOT) 15 U/L (5-34); Albumin 4.3 g/dL (3.4-4.8); Alkaline Phosphatase 102 U/L (40-150); Anion Gap 14 mmol/L (10-20); BUN (Urea Nitrogen) 10 mg/dL (8.4-25.7); Bilirubin, Total 1.1 mg/dL (0.2-1.2); Calc. Creatinine Clearance 0 mL/min (70-130); Calcium 9.7 mg/dL (7.8-10.44); Carbon Dioxide 21 mmol/L (23-31); Chloride 106 mmol/L (98-107); Estimated GFR-MDRD Greater than 90; Globulin 3.5 g/dL (2.4-3.5); Glucose 151 mg/dL (83-110); Protein, Total 7.8 g/dL (5.8-8.1); Sodium 137 mmol/L (136-145)
[2017-04-22 10:25] LABS: CKMB 1.3 ng/mL (0-6.6); PTT 71.8 SEC (22.9-36.1); Prothrombin Time 69.6 SEC (12.0-14.7)
[2017-04-22 10:36] LABS: INR-International Normal Ratio 7.7
[2017-04-22 11:43] LABS: Bilirubin Negative (Negative); Blood, Urine Large (Negative); Clarity CLOUDY (Clear); Glucose, Urine (Dipstick) Negative (Negative); Leukocyte Trace (Negative); Nitrite Negative (Negative); Protein, Urine (Dipstick) > or equal to 300 mg/dL (Neg-Trace); Specific Gravity, Urine 1.015 (1.002-1.036); pH, Urine 6.5 (5.0-9.0)
[2017-04-22 11:45] LABS: Bacteria/HPF None Seen HPF (None Seen); Hyaline Casts/LPF 0-3 HYALINE CAST LPF (0-3 Hyaline); Pathc Cast-AUWi Flag 0.84 (0-2.49); RBC/HPF GREATER THAN 50-TNTC HPF (0-3); Squamous Epithelial 0-3 HPF (0-3); WBC/HPF 21-50 HPF (0-3)
[2017-04-22] MEDS ORDERED: Phytonadione 10 MG/ML AMP PO SCH (11:45)
[2017-04-22 11:46] LABS: Renal Epithelial None Seen HPF (0-3); Transitional Epithelial NONE SEEN HPF (0-3)
== END 2017-04-22 12:00 | disposition home or self-care (01) ==
LOC: ERS 09:28
DX: R31.9 Hematuria, unspecified (principal); R79.1 Abnormal coagulation profile; I48.91 Unspecified atrial fibrillation; I48.92 Unspecified atrial flutter; I10 Essential (primary) hypertension; E11.9 Type 2 diabetes mellitus without complications; J44.9 Chronic obstructive pulmonary disease, unspecified; F41.9 Anxiety disorder, unspecified; Z79.84 Long term (current) use of oral hypoglycemic drugs; Z79.82 Long term (current) use of aspirin; Z79.899 Other long term (current) drug therapy; Z87.891 Personal history of nicotine dependence
CPT/HCPCS: 36415; 80053; 81003; 81015; 82553; 84484; 85025; 85610; 85730; 87077; 87086; 87186; 93005; J3430

== ENCOUNTER 2017-06-02 09:37 | Emergency (ER) | payer MEDICARE ==
[2017-06-02 10:23] LABS: Hemoglobin 9.8 g/dL (14.0-18.0); Mean Corpuscular HGB CONC 30.2 g/dL (32.0-36.0); Mean Corpuscular Hemoglobin 24.1 pg (27.0-31.0); Mean Corpuscular Volume 79.8 fl (80.0-94.0); Mean Platelet Volume 9.7 fL (7.4-10.4); Platelet Count 279 thou/uL (130-400); RBC Distribution Width 20.6 % (11.5-14.5); Red Blood Cell (RBC) Count 4.08 mill/uL (4.70-6.10)
[2017-06-02 10:28] LABS: ALT (SGPT) 13 U/L (8-55); AST (SGOT) 14 U/L (5-34); Albumin 4.3 g/dL (3.4-4.8); Alkaline Phosphatase 96 U/L (40-150); Anion Gap 11 mmol/L (10-20); BUN (Urea Nitrogen) 18 mg/dL (8.4-25.7); Bilirubin, Total 0.5 mg/dL (0.2-1.2); Calc. Creatinine Clearance 0 mL/min (70-130); Calcium 9.5 mg/dL (7.8-10.44); Carbon Dioxide 25 mmol/L (23-31); Chloride 103 mmol/L (98-107); Estimated GFR-MDRD 82; Globulin 3.4 g/dL (2.4-3.5); Glucose 146 mg/dL (83-110); Potassium 4.4 mmol/L (3.5-5.1); Protein, Total 7.7 g/dL (5.8-8.1); Sodium 135 mmol/L (136-145)
[2017-06-02 10:55] LABS: #Basophils 0.1 thou/uL (0.0-0.2); #Eosinphils 0.1 thou/uL (0.0-0.7); #Lymphocytes 1.3 thou/uL (1.20-3.40); #Monocytes 0.6 thou/uL (0.11-0.59); #Neutrophils 8.8 thou/uL (1.40-6.50); %Basophils 0.7 % (0.0-1.0); %Lymphocytes 11.9 % (21.0-51.0); %Monocytes 5.8 % (0.0-10.0); %Neutrophils 80.6 % (42.0-75.0); Anisocytosis MODERATE=16-30 cells (100X) (0-5/hpf); Hypochromia SLIGHT = 6-15 cells (100X) (0-5/hpf); MDiff Complete? YES; PLT Morphology Comment Appears Adequate; Polychromasia SLIGHT = 2-3 cells (100X) (0-2/hpf)
== END 2017-06-02 15:03 | disposition home or self-care (01) ==
LOC: ERS 09:37
DX: D64.9 Anemia, unspecified (principal); E11.9 Type 2 diabetes mellitus without complications; F41.9 Anxiety disorder, unspecified; F17.210 Nicotine dependence, cigarettes, uncomplicated; J44.9 Chronic obstructive pulmonary disease, unspecified; I48.91 Unspecified atrial fibrillation; I10 Essential (primary) hypertension; Z79.82 Long term (current) use of aspirin; Z79.84 Long term (current) use of oral hypoglycemic drugs; Z79.899 Other long term (current) drug therapy; Z79.01 Long term (current) use of anticoagulants
CPT/HCPCS: 36415; 80053; 85025; 86850; 86900; 86901; 99284

== ENCOUNTER 2017-06-26 20:23 | Emergency (ER) | payer MEDICARE ==
--- NOTE | 2017-06-26 21:54 | RAD ---
PORTABLE AP CHEST X-RAY 06/26/17 HISTORY: Dyspnea, COPD exacerbation, chronic bronchitis. COMPARISON: 03/18/17. FINDINGS: A triple lead left subclavian cardiac pacemaker device remains in place. Cardiac silhouette is magnif ied by projection. Vascular calcifications in the aortic arch are again seen. Again noted are the increased interstitial densities within the right upper lobe at each lung base gr eater on the right which are similar to prior study and may be secondary to chronic lung changes. No new focal area of consolidation or pleural fluid is seen. IMPRESSION: Stable chronic lung changes without evidence of an acute cardiopulmonary process. POS: YOBANY
[2017-06-26 22:46] LABS: #Eosinphils 0.1 thou/uL (0.0-0.7); #Lymphocytes 1.2 thou/uL (1.20-3.40); #Monocytes 0.7 thou/uL (0.11-0.59); #Neutrophils 6.2 thou/uL (1.40-6.50); %Basophils 0.4 % (0.0-1.0); %Eosinophils 0.8 % (0.0-10.0); %Lymphocytes 14.4 % (21.0-51.0); %Monocytes 8.7 % (0.0-10.0); %Neutrophils 75.7 % (42.0-75.0); Hemoglobin 9.1 g/dL (14.0-18.0); Mean Corpuscular HGB CONC 30.1 g/dL (32.0-36.0); Mean Corpuscular Hemoglobin 22.2 pg (27.0-31.0); Mean Corpuscular Volume 73.9 fl (80.0-94.0); Mean Platelet Volume 6.1 fL (7.4-10.4); Platelet Count 165 thou/uL (130-400); RBC Distribution Width 20.6 % (11.5-14.5); Red Blood Cell (RBC) Count 4.09 mill/uL (4.70-6.10); White Blood Cell (WBC) Count 8.2 thou/uL (4.8-10.8)
[2017-06-26 23:08] LABS: ALT (SGPT) 11 U/L (8-55); AST (SGOT) 17 U/L (5-34); Alkaline Phosphatase 93 U/L (40-150); Anion Gap 13 mmol/L (10-20); BUN (Urea Nitrogen) 15 mg/dL (8.4-25.7); Band 2 % (5-11); Bilirubin, Total 0.5 mg/dL (0.2-1.2); CK (CPK) 48 U/L (30-200); Calc. Creatinine Clearance 0 mL/min (70-130); Calcium 9.2 mg/dL (7.8-10.44); Carbon Dioxide 25 mmol/L (23-31); Chloride 103 mmol/L (98-107); Eosinophils 2 % (0-10); Estimated GFR-MDRD 82; Globulin 2.8 g/dL (2.4-3.5); Glucose 119 mg/dL (83-110); Lipase 17 U/L (8-78); Lymphocytes 8 % (21-51); MDiff Complete? YES; Microcytosis SLIGHT = 6-15 cells (100X) (0-5/hpf); Monocytes 7 % (0-10); Neutrophil 80 % (42-75); PLT Morphology Comment Appears Adequate; Potassium 3.8 mmol/L (3.5-5.1); Protein, Total 6.8 g/dL (5.8-8.1); Sodium 137 mmol/L (136-145)
[2017-06-26 23:12] LABS: CKMB 1.1 ng/mL (0-6.6); Troponin I Less than 0.010 ng/mL (< 0.028)
[2017-06-26 23:12] LABS: INR-International Normal Ratio 1.3; Prothrombin Time 16.9 SEC (12.0-14.7)
[2017-06-26 23:13] LABS: PTT 33.7 SEC (22.9-36.1)
[2017-06-26] MEDS ORDERED: methylPREDNISolone Sod Succ/PF 125 MG/2 ML VIAL ONE (23:17)
[2017-06-26] MEDS ORDERED: Magnesium Sulfate 2 GM/100 ML BAG ONE (23:17)
== END 2017-06-27 00:46 | disposition home or self-care (01) ==
LOC: ERS 20:23
DX: J44.1 Chronic obstructive pulmonary disease with (acute) exacerbation (principal); I48.91 Unspecified atrial fibrillation; I48.92 Unspecified atrial flutter; I10 Essential (primary) hypertension; E11.9 Type 2 diabetes mellitus without complications; F41.9 Anxiety disorder, unspecified; F17.210 Nicotine dependence, cigarettes, uncomplicated; Z79.84 Long term (current) use of oral hypoglycemic drugs; Z71.6 Tobacco abuse counseling; Z79.82 Long term (current) use of aspirin; Z79.01 Long term (current) use of anticoagulants; Z79.899 Other long term (current) drug therapy
CPT/HCPCS: 36415; 71045; 80053; 82553; 83690; 83880; 84484; 85025; 85610; 85730; 93005; 96365; 96375; 99406; J2930; J3475

== ENCOUNTER 2017-07-02 15:16 | Inpatient (IN) | payer MEDICARE ==
[2017-07-02 16:14] LABS: #Eosinphils 0.2 thou/uL (0.0-0.7); #Lymphocytes 2.8 thou/uL (1.20-3.40); #Monocytes 0.8 thou/uL (0.11-0.59); #Neutrophils 9.4 thou/uL (1.40-6.50); %Basophils 0.1 % (0.0-1.0); %Eosinophils 1.1 % (0.0-10.0); %Lymphocytes 21.4 % (21.0-51.0); %Monocytes 6.3 % (0.0-10.0); %Neutrophils 71.1 % (42.0-75.0); Hemoglobin 10.2 g/dL (14.0-18.0); Mean Corpuscular HGB CONC 29.7 g/dL (32.0-36.0); Mean Corpuscular Hemoglobin 22.4 pg (27.0-31.0); Mean Corpuscular Volume 75.3 fl (80.0-94.0); Mean Platelet Volume 11.7 fL (7.4-10.4); Platelet Count 235 thou/uL (130-400); RBC Distribution Width 20.9 % (11.5-14.5); Red Blood Cell (RBC) Count 4.54 mill/uL (4.70-6.10); White Blood Cell (WBC) Count 13.3 thou/uL (4.8-10.8)
[2017-07-02 16:28] LABS: Acanthocytes SLIGHT = 1-5 cells (100X) (None Seen); Elliptocytes SLIGHT = 2-5 cells (100X) (0-1/hpf); Hypochromia SLIGHT = 6-15 cells (100X) (0-5/hpf); MDiff Complete? YES; Ovalocytes SLIGHT = 2-5 cells (100X) (0-1/hpf); PLT Morphology Comment Appears Adequate
[2017-07-02 16:34] LABS: ALT (SGPT) 17 U/L (8-55); AST (SGOT) 13 U/L (5-34); Alkaline Phosphatase 91 U/L (40-150); Anion Gap 15 mmol/L (10-20); BUN (Urea Nitrogen) 23 mg/dL (8.4-25.7); Bilirubin, Total 0.4 mg/dL (0.2-1.2); CK (CPK) 27 U/L (30-200); Calc. Creatinine Clearance 0 mL/min (70-130); Calcium 9.3 mg/dL (7.8-10.44); Carbon Dioxide 20 mmol/L (23-31); Chloride 105 mmol/L (98-107); Estimated GFR-MDRD Greater than 90; Globulin 2.9 g/dL (2.4-3.5); Glucose 159 mg/dL (83-110); Potassium 3.5 mmol/L (3.5-5.1); Protein, Total 6.9 g/dL (5.8-8.1); Sodium 136 mmol/L (136-145)
[2017-07-02 16:39] LABS: Troponin I Less than 0.010 ng/mL (< 0.028)
--- NOTE | 2017-07-02 16:52 | RAD ---
CHEST ONE VIEW: 07/02/17 HISTORY: Dyspnea. COMPARISON: 06/26/17. FINDINGS: The cardiac silhouette is magnified by projection. Pulmonary vasculature is unremarkable. Mediastinum is midline with aortic calcification and a multilead left subclavian cardiac electronic device. No l obar consolidation or evidence of pneumothorax. IMPRESSION: No active cardiopulmonary abnormalities are demonstrated. POS: YOBANY
[2017-07-02] MEDS ORDERED: Ondansetron HCl/PF 4 MG/2 ML Vial IVP PRN (18:36)
[2017-07-02] MEDS ORDERED: Acetaminophen 325 MG TAB PO PRN (18:36)
[2017-07-02] MEDS ORDERED: cefTRIAXone\\ROCEPHIN 1 GM in Sodium Chloride 0.9% 100 ML IVPB SCH (18:45)
[2017-07-02] MEDS: cefTRIAXone\\ROCEPHIN 1 GM, Syringe 0.4 ML in Sterile Water 9.6 ML SLOW IVP SCH (20:18)
[2017-07-02] MEDS: Azithromycin 500 MG in Sodium Chloride 0.9% 250 ML 250 ML IVPB SCH (20:19)
[2017-07-02] MEDS: Famotidine 20 MG TAB PO SCH (20:19)
[2017-07-03 00:26] LABS: Actual Bicarbonate (HCO3a) 23.4 mEq/L (22-26); CO2 Tension 39.6 mmHg (35.0-45.0); O2 Tension (PaO2) 60.2 mmHg (80.0-100.0); pH, Arterial 7.39 (7.35-7.45)
[2017-07-03 00:27] LABS: Analyzer IN Cardio OR; Base Excess (BEa) -1.4 mEq/L (0 (+/-) 2.5); Calcium, Ionized 1.2 mmol/L (1.12-1.30); Hematocrit-ABG 32.4 % (42.0-52.0); Hemoglobin (Hb) 9.2 g/dL (14.0-18.0)
[2017-07-03 00:28] LABS: Puncture Site R RADIAL
[2017-07-03 05:42] LABS: #Lymphocytes 0.5 thou/uL (1.20-3.40); #Monocytes 0.2 thou/uL (0.11-0.59); #Neutrophils 6.7 thou/uL (1.40-6.50); %Basophils 0.4 % (0.0-1.0); %Eosinophils 0.1 % (0.0-10.0); %Lymphocytes 6.9 % (21.0-51.0); %Monocytes 2.1 % (0.0-10.0); %Neutrophils 90.4 % (42.0-75.0); Anion Gap 14 mmol/L (10-20); Anisocytosis SLIGHT = 6-15 cells (100X) (0-5/hpf); BUN (Urea Nitrogen) 24 mg/dL (8.4-25.7); Calc. Creatinine Clearance 0 mL/min (70-130); Calcium 9.1 mg/dL (7.8-10.44); Carbon Dioxide 21 mmol/L (23-31); Chloride 103 mmol/L (98-107); Elliptocytes SLIGHT = 2-5 cells (100X) (0-1/hpf); Estimated GFR-MDRD 85; Glucose 314 mg/dL (83-110); Hemoglobin 9.4 g/dL (14.0-18.0); Hypochromia SLIGHT = 6-15 cells (100X) (0-5/hpf); MDiff Complete? YES; Mean Corpuscular HGB CONC 30.7 g/dL (32.0-36.0); Mean Corpuscular Hemoglobin 22.8 pg (27.0-31.0); Mean Corpuscular Volume 74.4 fl (80.0-94.0); Mean Platelet Volume 6.4 fL (7.4-10.4); Microcytosis SLIGHT = 6-15 cells (100X) (0-5/hpf); Platelet Count 201 thou/uL (130-400); Potassium 4.4 mmol/L (3.5-5.1); RBC Distribution Width 21.1 % (11.5-14.5); Red Blood Cell (RBC) Count 4.13 mill/uL (4.70-6.10); Sodium 134 mmol/L (136-145); White Blood Cell (WBC) Count 7.4 thou/uL (4.8-10.8)
[2017-07-03] MEDS: Enoxaparin Sodium 30 MG/0.3 ML SYRINGE SC SCH (08:52)
[2017-07-03] MEDS: Famotidine 20 MG TAB PO SCH (08:52)
[2017-07-03] MEDS ORDERED: Furosemide 20 MG/2 ML VIAL SLOW IVP SCH (11:30)
[2017-07-03 13:23] LABS: INR-International Normal Ratio 1.2; Prothrombin Time 15.6 SEC (12.0-14.7)
[2017-07-03] MEDS ORDERED: guaiFENesin 200 MG TAB PO PRN (13:49)
[2017-07-03] MEDS ORDERED: Loratadine 10 MG TAB PO PRN (14:00)
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
--- NOTE | 2017-07-03 16:48 | PDOC.PN ---
- Subjective Encounter Start Date: 07/03/17 Encounter Start Time: 16:47 Subjective: nsg notes rev, julio ovn, pt just took a shower states that he overall -: feels better with better breathing - Objective Resuscitation Status: Resuscitation Status FULL:Full Resuscitation Vital Signs & Weight: Vital Signs (12 hours) Temp Pulse Resp BP BP Pulse Ox 07/03/17 15:07 98.1 F 64 20 150/70 H 94 L 07/03/17 11:50 96 07/03/17 11:47 69 16 07/03/17 11:35 72 20 161/72 H 92 L 07/03/17 07:20 97.8 F 67 18 155/73 H 94 L Weight Weight 162 lb 11.218 oz I&O: 07/02/17 07/03/17 07/04/17 06:59 06:59 06:59 Intake Total 1050 Output Total 1650 Balance -600 Result Diagrams: 07/03/17 03:40 07/03/17 03:40 Phys Exam - Physical Examination Constitutional: NAD seated on edge of bed HEENT: PERRLA, sclera anicteric, oral pharynx no lesions Respiratory: no rales, no rhonchi, clear to auscultation bilateral end expiratory wheezing throughout Cardiovascular: RRR, no significant murmur, no rub Gastrointestinal: soft, positive bowel sounds Musculoskeletal: no edema, pulses present Neurological: moves all 4 limbs Psychiatric: normal affect, A&O x 3 Dx/Plan - Plan * COPD Exacerbation failing o/p therapy * apprec pulmonary c/s * continue with steroids, nebs, O2, empiric abx * de-escalate O2 support * check ambulatory pulse ox afib * currently rate controlled * continue on home a/c with coumadin, subtherapeutic INR hx CAD * continue home regimen diet: cardiac, as gu[place] activity: as guan[place] dvt ppx Review of Systems - Medications/Allergies Allergies/Adverse Reactions: Allergies Allergy/AdvReac Type Severity Reaction Status Date / Time No Known Drug Allergies Allergy Verified 07/02/17 21:19 Medications: Current Medications Acetaminophen (Tylenol) 650 mg PO Q4H PRN PRN Reason: Headache/Fever or Pain Albuterol/Ipratropium (Duoneb) 3 ml NEB [id number] [facility] Last Admin: 07/03/17 11:47 Dose: 3 ml Amlodipine Besylate (Norvasc) 10 mg PO DAILY [facility] Aspirin (Ecotrin) 81 mg PO DAILY [facility] Atorvastatin Calcium (Lipitor) 20 mg PO HS [facility] Enoxaparin Sodium (Lovenox) 30 mg SC 0900 [facility] Last Admin: 07/03/17 08:52 Dose: 30 mg Furosemide (Lasix) 20 mg PO DAILY [facility] Glipizide (Glucotrol) 5 mg PO DAILY [facility] Guaifenesin (Organ-I Nr) 200 mg PO Q4HR PRN PRN Reason: Cough Azithromycin 500 mg/ Sodium (Chloride) 250 mls @ 250 mls/hr IVPB 2000 [facility] Last Admin: 07/02/17 20:19 Dose: 250 mls Ceftriaxone Sodium 1 gm/ (Syringe 0.4 ml/ Sterile Water) 10 mls @ 120 mls/hr SLOW IVP 2100 [facility] Last Admin: 07/02/17 20:18 Dose: 10 mls Lisinopril (Zestril) 20 mg PO DAILY [facility] Loratadine (Claritin) 10 mg PO DAILYPRN PRN PRN Reason: Allergies Metformin HCl (Glucophage) 500 mg PO BID-[facility] Metoprolol Tartrate (Lopressor) 50 mg PO BID [facility] Ondansetron HCl (Zofran) 4 mg IVP Q6H PRN PRN Reason: Nausea/Vomiting Prednisone (Prednisone) 40 mg PO QAM-[facility] Sodium Chloride (Flush - Normal Saline) 10 ml IVF PRN PRN PRN Reason: Saline Flush Last Admin: 07/03/17 08:51 Dose: 10 ml Trazodone HCl (Desyrel) 50 mg PO HS [facility] Warfarin Sodium (Coumadin) 5 mg PO SuTuWeThSa@1700 [facility] Warfarin Sodium (Coumadin) 7.5 mg PO MoFr@1700 [facility]
[2017-07-03] MEDS ORDERED: Warfarin Sodium 5 MG TAB PO SCH (17:00)
[2017-07-03] MEDS: metFORMIN 500 MG TAB PO SCH (17:49)
[2017-07-03] MEDS: Warfarin Sodium 5 MG TAB PO SCH (17:49)
[2017-07-03] MEDS: Azithromycin 500 MG in Sodium Chloride 0.9% 250 ML 250 ML IVPB SCH (20:49)
[2017-07-03] MEDS: traZODone HCl 50 MG TAB PO SCH (20:50)
[2017-07-03] MEDS: Atorvastatin Calcium 20 MG TAB PO SCH (20:50)
[2017-07-03] MEDS: Metoprolol Tartrate 50 MG TAB PO SCH (20:50)
[2017-07-03] MEDS: cefTRIAXone\\ROCEPHIN 1 GM, Syringe 0.4 ML in Sterile Water 9.6 ML SLOW IVP SCH (20:50)
[2017-07-03] MEDS ORDERED: traZODone HCl 50 MG TAB PO SCH (21:00)
[2017-07-03] MEDS ORDERED: Atorvastatin Calcium 20 MG TAB PO SCH (21:00)
[2017-07-03 22:15] LABS: Hemoglobin 9.2 g/dL (14.0-18.0); Platelet Count 224 thou/uL (130-400)
[2017-07-04 04:54] LABS: INR-International Normal Ratio 1.2; Prothrombin Time 15.6 SEC (12.0-14.7)
[2017-07-04 04:55] LABS: D-Dimer Test 0.33 *mcg/mL (0.27-0.43)
[2017-07-04 05:03] LABS: Anisocytosis SLIGHT = 6-15 cells (100X) (0-5/hpf); Band 3 % (5-11); Elliptocytes SLIGHT = 2-5 cells (100X) (0-1/hpf); Hemoglobin 9.3 g/dL (14.0-18.0); Lymphocytes 11 % (21-51); MDiff Complete? YES; Mean Corpuscular HGB CONC 30.5 g/dL (32.0-36.0); Mean Corpuscular Hemoglobin 22.4 pg (27.0-31.0); Mean Corpuscular Volume 73.3 fl (80.0-94.0); Mean Platelet Volume 6.4 fL (7.4-10.4); Monocytes 3 % (0-10); Neutrophil 83 % (42-75); Platelet Count 223 thou/uL (130-400); RBC Distribution Width 20.9 % (11.5-14.5); Red Blood Cell (RBC) Count 4.15 mill/uL (4.70-6.10); White Blood Cell (WBC) Count 13.2 thou/uL (4.8-10.8)
[2017-07-04 05:04] LABS: Iron 14 ug/dL (65-175); Iron Binding Capacity, Total 330 mcg/dL (261-462)
[2017-07-04 05:05] LABS: Anion Gap 13 mmol/L (10-20); BUN (Urea Nitrogen) 26 mg/dL (8.4-25.7); Calc. Creatinine Clearance 76 mL/min (70-130); Calcium 9.1 mg/dL (7.8-10.44); Carbon Dioxide 23 mmol/L (23-31); Chloride 101 mmol/L (98-107); Estimated GFR-MDRD 84; Glucose 214 mg/dL (83-110); Iron 14 ug/dL (65-175); Iron Binding Capacity, Total 331 mcg/dL (261-462); Potassium 4.4 mmol/L (3.5-5.1); Sodium 133 mmol/L (136-145); Transferrin, Serum 265 mg/dL (163-344)
[2017-07-04] MEDS ORDERED: Amlodipine 10 MG TAB PO SCH (09:00)
[2017-07-04] MEDS ORDERED: Furosemide 20 MG/2 ML VIAL SLOW IVP SCH (09:00)
[2017-07-04] MEDS: Lisinopril 20 MG TAB PO SCH (09:37)
[2017-07-04] MEDS: glipiZIDE 5 MG TAB PO SCH (09:37)
[2017-07-04] MEDS: Enoxaparin Sodium 30 MG/0.3 ML SYRINGE SC SCH (09:37)
[2017-07-04] MEDS: metFORMIN 500 MG TAB PO SCH ×2 (09:38→17:33)
[2017-07-04] MEDS: Metoprolol Tartrate 50 MG TAB PO SCH ×2 (09:38→21:07)
[2017-07-04] MEDS: predniSONE 20 MG TAB PO SCH (09:38)
[2017-07-04] MEDS: Amlodipine 10 MG TAB PO SCH (09:38)
[2017-07-04] MEDS: Furosemide 20 MG TAB PO SCH (09:38)
[2017-07-04] MEDS: Aspirin 81 mg Enteric Coated Tablet PO SCH (09:38)
--- NOTE | 2017-07-04 13:16 | PDOC.PN ---
- Subjective Encounter Start Date: 07/04/17 Encounter Start Time: 13:15 CC: Dyspnea Sub: pt c/o dyspnea - Objective Resuscitation Status: Resuscitation Status FULL:Full Resuscitation Vital Signs & Weight: Vital Signs (12 hours) Temp Pulse Pulse Pulse Resp BP BP 07/04/17 12:01 67 70 145/67 H 07/04/17 09:38 83 07/04/17 09:37 161/76 H 07/04/17 08:07 07/04/17 08:05 83 12 07/04/17 07:18 96.9 F L 64 18 07/04/17 04:00 98.0 F 70 16 BP BP Pulse Ox Pulse Ox Pulse Ox 07/04/17 12:01 180/79 H 90 L 88 L 07/04/17 09:38 07/04/17 09:37 07/04/17 08:07 95 07/04/17 08:05 07/04/17 07:18 161/76 H 92 L 07/04/17 04:00 135/69 93 L Weight Weight 162 lb 0.636 oz I&O: 07/03/17 07/04/17 07/05/17 06:59 06:59 06:59 Intake Total 1050 1946 Output Total 1650 2800 Balance -600 -854 Result Diagrams: 07/04/17 03:46 07/04/17 03:46 Dx/Plan - Plan - Physical Examination Constitutional: NAD seated on edge of bed HEENT: PERRLA, sclera anicteric, oral pharynx no lesions Respiratory: no rales, no rhonchi, diminished at bases, occasional wheezing, no rhonchi Cardiovascular: RRR, no significant murmur, no rub Gastrointestinal: soft, positive bowel sounds Musculoskeletal: no edema, pulses present Neurological: moves all 4 limbs Psychiatric: normal affect, A&O x 3 Dx/Plan - Plan * COPD Exacerbation failing o/p therapy * apprec pulmonary c/s * continue with steroids, nebs, O2, empiric abx * de-escalate O2 support * check ambulatory pulse ox afib * currently rate controlled * continue on home a/c with coumadin, subtherapeutic INR * continue lovenox 30mg daily hx CAD * continue home regimen H/O HTN: Monitor bp closeley diet: cardiac, as guan[place] activity: as guan[place] dvt ppx
[2017-07-04] MEDS: Warfarin Sodium 5 MG TAB PO SCH (17:34)
--- NOTE | 2017-07-04 19:12 | PRG ---
DATE OF SERVICE: 07/04/2017 SERVICE: Pulmonary Medicine. INTERVAL HISTORY: The patient is doing fine from a respiratory standpoint. He denies any chest pain , nausea, vomiting, fevers or chills. Otherwise, there has been no interval change to his condition. He is pretty happy with the progress that he has made. He still gets a little bit winded when he m oves around. His cough is improving. He remains in sinus rhythm. PHYSICAL EXAMINATION: VITAL SIGNS: Afebrile, pulse 69, blood pressure 131/61, respirations 20, saturation 95% on 2 liters nasal cannula. GENERAL: The patient is awake, alert, in no apparent distress. LUNGS: Excellent air entry. There is decreased wheezing and rhonchi present. Dependent crackles ar e minimal. HEART: Normal rate, regular. ABDOMEN: Soft, nontender, nondistended. Bowel sounds are positive. MUSCULOSKELETAL: No cyanosis or clubbing. No pitting in the bilateral lower extremities. NEUROLOGIC: Grossly nonfocal. LABORATORY DATA: WBC 13.2. Neutrophil count is improving and band count remains low. INR 1.2. Bas ic metabolic profile is essentially unremarkable/stable. Iron is low, iron saturation is low, and fe rritin is low, consistent with iron deficiency. Respiratory culture is growing gram negative rods x2 . Blood cultures x2 is negative. Respiratory virus panel is negative. ASSESSMENT: 1. Acute hypoxic respiratory failure. 2. Chronic obstructive pulmonary disease with acute exacerbation. 3. Acute on chronic diastolic heart failure. 4. Obstructive sleep apnea. PLAN: The patient can be transitioned to the medical unit. Pulmonary will continue to follow along. We will continue nebulized medications, steroids, and antibiotics. We will continue to work with p hysical therapy and walked up and down the hallways as much as tolerated. Pulmonary will continue to follow.
[2017-07-04] MEDS: Azithromycin 500 MG in Sodium Chloride 0.9% 250 ML 250 ML IVPB SCH (20:57)
[2017-07-04] MEDS: Atorvastatin Calcium 20 MG TAB PO SCH (21:07)
[2017-07-04] MEDS: cefTRIAXone\\ROCEPHIN 1 GM, Syringe 0.4 ML in Sterile Water 9.6 ML SLOW IVP SCH (22:11)
[2017-07-04] MEDS: traZODone HCl 50 MG TAB PO SCH (22:13)
[2017-07-05 05:05] LABS: INR-International Normal Ratio 1.2; Prothrombin Time 15.2 SEC (12.0-14.7)
[2017-07-05 05:27] LABS: Anion Gap 11 mmol/L (10-20); BUN (Urea Nitrogen) 22 mg/dL (8.4-25.7); Calc. Creatinine Clearance 81 mL/min (70-130); Calcium 9.2 mg/dL (7.8-10.44); Carbon Dioxide 24 mmol/L (23-31); Chloride 102 mmol/L (98-107); Estimated GFR-MDRD Greater than 90; Glucose 171 mg/dL (83-110); Potassium 4.4 mmol/L (3.5-5.1); Sodium 133 mmol/L (136-145)
[2017-07-05 05:44] LABS: #Lymphocytes 1.8 thou/uL (1.20-3.40); #Monocytes 0.6 thou/uL (0.11-0.59); #Neutrophils 8.6 thou/uL (1.40-6.50); %Basophils 0.1 % (0.0-1.0); %Eosinophils 0.4 % (0.0-10.0); %Monocytes 5.5 % (0.0-10.0); %Neutrophils 78.1 % (42.0-75.0); Anisocytosis SLIGHT = 6-15 cells (100X) (0-5/hpf); Elliptocytes SLIGHT = 2-5 cells (100X) (0-1/hpf); Hemoglobin 9.8 g/dL (14.0-18.0); Hypochromia SLIGHT = 6-15 cells (100X) (0-5/hpf); MDiff Complete? YES; Mean Corpuscular HGB CONC 30.9 g/dL (32.0-36.0); Mean Corpuscular Hemoglobin 22.6 pg (27.0-31.0); Mean Corpuscular Volume 73.1 fl (80.0-94.0); Mean Platelet Volume 7.4 fL (7.4-10.4); Microcytosis SLIGHT = 6-15 cells (100X) (0-5/hpf); Platelet Count 226 thou/uL (130-400); Red Blood Cell (RBC) Count 4.31 mill/uL (4.70-6.10)
[2017-07-05] MEDS ORDERED: Dextrose 50% Abboject 50 ML SYRINGE IVP PRN (08:38)
[2017-07-05] MEDS ORDERED: Dextrose 5% in Water 1,000 ML IV PRN (08:38)
[2017-07-05] MEDS ORDERED: Insulin Regular 300 UNITS/3 ML VIAL SC PRN (08:38)
[2017-07-05] MEDS: glipiZIDE 5 MG TAB PO SCH (08:56)
[2017-07-05] MEDS: Ferrous Sulfate 325 MG TAB PO SCH ×2 (08:56→17:15)
[2017-07-05] MEDS: Amlodipine 10 MG TAB PO SCH (08:57)
[2017-07-05] MEDS: predniSONE 20 MG TAB PO SCH (08:57)
[2017-07-05] MEDS: Lisinopril 20 MG TAB PO SCH (08:58)
[2017-07-05] MEDS: Furosemide 20 MG TAB PO SCH (08:59)
[2017-07-05] MEDS: metFORMIN 500 MG TAB PO SCH ×2 (08:59→17:16)
[2017-07-05] MEDS: Aspirin 81 mg Enteric Coated Tablet PO SCH (08:59)
[2017-07-05] MEDS: Enoxaparin Sodium 30 MG/0.3 ML SYRINGE SC SCH (08:59)
[2017-07-05] MEDS: Metoprolol Tartrate 50 MG TAB PO SCH ×2 (08:59→21:07)
[2017-07-05] MEDS: Insulin Regular 300 UNITS/3 ML VIAL SC PRN ×2 (12:07→17:17)
--- NOTE | 2017-07-05 15:01 | PRG ---
DATE OF SERVICE: 07/05/2017 SERVICE: Pulmonary Medicine. INTERVAL HISTORY: The patient is doing fine from a cardiovascular and respiratory standpoint. He is breathing much more comfortably today. With exertion, he has less dyspnea. He has been able to get up and move or walk up and down the hallway with the help of the walking program. He denies any cur rent chest pain, nausea, vomiting. He is coughing, but bringing up very little sputum. PHYSICAL EXAMINATION: VITAL SIGNS: Afebrile, pulse 66, blood pressure 145/71, respirations 18, saturation 96% on 2 liters nasal cannula. GENERAL: The patient is awake, alert, in no apparent distress. LUNGS: Decent air entry bilaterally. This is much improved compared to prior. There is less rhonch i. Minimal crackles are present. Prolonged expiratory phase and some wheezing is also evident. HEART: Normal rate, regular. ABDOMEN: Soft, nontender, nondistended. Bowel sounds are positive. MUSCULOSKELETAL: No cyanosis or clubbing. There is no pitting in the bilateral lower extremities. NEUROLOGIC: Grossly nonfocal. LABORATORY DATA: WBC 11.0, hemoglobin 9.8, platelets 226,000. INR 1.2. Basic metabolic profile is essentially unremarkable at this time. Glucose 231, remains elevated. Sputum is growing multiple gr am-negative rods. Blood culture x2 and respiratory virus panel are unremarkable. ASSESSMENT: 1. Acute hypoxic respiratory failure. 2. Chronic obstructive pulmonary disease with acute exacerbation. 3. Acute on chronic diastolic heart failure. 4. Obstructive sleep apnea. PLAN: The patient is stable for transition out of the hospital. He can go home either today or beryl rrow. He will need 5 days of antibiotics and steroids. He will continue his home inhalers on discha rge from the hospital. He refused noninvasive ventilation last night. We will not press that issue in the hospital, but we will reevaluate his need for noninvasive therapy in the outpatient setting. We will continue to diurese gently to euvolemia, as he remains ever so slightly volume up.
[2017-07-05] MEDS ORDERED: Warfarin Sodium 7.5 MG TAB PO SCH (17:00)
[2017-07-05] MEDS: traZODone HCl 50 MG TAB PO SCH (21:07)
[2017-07-05] MEDS: Azithromycin 500 MG in Sodium Chloride 0.9% 250 ML 250 ML IVPB SCH (21:07)
[2017-07-05] MEDS: cefTRIAXone\\ROCEPHIN 1 GM, Syringe 0.4 ML in Sterile Water 9.6 ML SLOW IVP SCH (21:07)
[2017-07-05] MEDS: Atorvastatin Calcium 20 MG TAB PO SCH (21:07)
--- NOTE | 2017-07-05 22:20 | PDOC.PN ---
- Subjective Encounter Start Date: 07/05/17 Encounter Start Time: 16:30 Patient seen and examined for SOB/CHF/COPD flare. No new complaints. No overnight events. SOB improving. Some cough - mild production. - Objective Resuscitation Status: Resuscitation Status FULL:Full Resuscitation MAR Reviewed: Yes Vital Signs & Weight: Vital Signs (12 hours) Temp Pulse Resp BP BP Pulse Ox 07/05/17 19:04 61 18 95 07/05/17 16:00 97.7 F 64 18 141/64 H 95 07/05/17 13:29 85 20 07/05/17 12:10 98.3 F 66 18 145/71 H 96 Weight Weight 162 lb 0.636 oz I&O: 07/04/17 07/05/17 07/06/17 06:59 06:59 06:59 Intake Total 1946 1216 1560 Output Total 2800 2155 1750 [facility] -939 -190 Result Diagrams: 07/06/17 03:47 07/06/17 03:47 Additional Labs: Accuchecks 07/05/17 07/05/17 07/05/17 20:49 16:55 10:27 POC Glucose 266 H 256 H 231 H EKG Reviewed by me: Yes (Tele SR) Phys Exam - Physical Examination Constitutional: NAD Respiratory: no rhonchi Scat wheezing, Bibasilar rales Cardiovascular: RRR, no rub Gastrointestinal: soft, non-tender, positive bowel sounds Neurological: moves all 4 limbs Dx/Plan - Plan respiratory therapy, DVT proph w/lovenox, DVT proph w/SCDs IMPRESSION: 1. Acute hypoxic resp failure due to COPD Exacerbation 2. Ongoing tobacco dep - counselled 3. HTN 4. DM2 5. CAD / NURY on CPAP/ Par Afib PLAN: * Cont steroids,nebs, O2, * Cont CPAP HS * Cont sliding scale * Cont to monitor * Cont current meds as below * DC planning Review of Systems - Review of Systems Cardiovascular: negative: chest pain, palpitations, orthopnea, paroxysmal nocturnal dyspnea, edema, light headedness, other Gastrointestinal: negative: Nausea, Vomiting, Abdominal Pain, Diarrhea, Constipation, Melena, Hematochezia, Other - Medications/Allergies Allergies/Adverse Reactions: Allergies Allergy/AdvReac Type Severity Reaction Status Date / Time No Known Drug Allergies Allergy Verified 04/27/18 21:19 Medications: Current Medications Acetaminophen (Tylenol) 650 mg PO Q4H PRN PRN Reason: Headache/Fever or Pain Albuterol/Ipratropium (Duoneb) 3 ml NEB [id number] [facility] Last Admin: 07/05/17 19:04 Dose: 3 ml Amlodipine Besylate (Norvasc) 10 mg PO DAILY [facility] Last Admin: 07/05/17 08:57 Dose: 10 mg Aspirin (Ecotrin) 81 mg PO DAILY [facility] Last Admin: 07/05/17 08:59 Dose: 81 mg Atorvastatin Calcium (Lipitor) 20 mg PO HS [facility] Last Admin: 07/05/17 21:07 Dose: 20 mg Dextrose/Water (Dextrose 50%) 25 gm IVP PRN PRN PRN Reason: HYPOGLYCEMIA PROTOCOL Enoxaparin Sodium (Lovenox) 30 mg SC 0900 [facility] Last Admin: 07/05/17 08:59 Dose: 30 mg Ferrous Sulfate (Feosol) 325 mg PO BID-WM [facility] Last Admin: 07/05/17 17:15 Dose: 325 mg Furosemide (Lasix) 40 mg PO DAILY [facility] Glipizide (Glucotrol) 5 mg PO DAILY [facility] Last Admin: 07/05/17 08:56 Dose: 5 mg Glucagon (Glucagon) 1 mg IM PRN PRN PRN Reason: HYPOGLYCEMIA PROTOCOL Guaifenesin (Organ-I Nr) 200 mg PO Q4HR PRN PRN Reason: Cough Azithromycin 500 mg/ Sodium (Chloride) 250 mls @ 250 mls/hr IVPB 2000 [facility] Last Admin: 07/05/17 21:07 Dose: 250 mls Ceftriaxone Sodium 1 gm/ (Syringe 0.4 ml/ Sterile Water) 10 mls @ 120 mls/hr SLOW IVP 2100 [facility] Last Admin: 07/05/17 21:07 Dose: 10 mls Dextrose/Water (D5w) 1,000 mls @ 0 mls/hr IV INF PRN; As Directed PRN Reason: HYPOGLYCEMIA PROTOCOL Insulin Human Regular (Humulin R) 0 units SC .MILD SLIDING PRN; Protocol PRN Reason: MILD SLIDING SCALE Last Admin: 07/05/17 17:17 Dose: 4 unit Insulin Human Regular (Humulin R) 0 units SC .BEDTIME SLIDING SC PRN; Protocol PRN Reason: BEDTIME SLIDING SCALE Lisinopril (Zestril) 20 mg PO DAILY [facility] Last Admin: 07/05/17 08:58 Dose: 20 mg Loratadine (Claritin) 10 mg PO DAILYPRN PRN PRN Reason: Allergies Metformin HCl (Glucophage) 500 mg PO BID-[facility] Last Admin: 07/05/17 17:16 Dose: 500 mg Metoprolol Tartrate (Lopressor) 50 mg PO BID [facility] Last Admin: 07/05/17 21:07 Dose: 50 mg Ondansetron HCl (Zofran) 4 mg IVP Q6H PRN PRN Reason: Nausea/Vomiting Prednisone (Prednisone) 40 mg PO QAM-[facility] Last Admin: 07/05/17 08:57 Dose: 40 mg Sodium Chloride (Flush - Normal Saline) 10 ml IVF PRN PRN PRN Reason: Saline Flush Last Admin: 07/04/17 22:12 Dose: 10 ml Trazodone HCl (Desyrel) 50 mg PO HS [facility] Last Admin: 07/05/17 21:07 Dose: 50 mg Warfarin Sodium (Coumadin) 5 mg PO SuTuWeThSa@1700 [facility] Last Admin: 07/04/17 17:34 Dose: 5 mg Warfarin Sodium (Coumadin) 7.5 mg PO MoFr@1700 [facility] Last Admin: 07/05/17 17:14 Dose: 7.5 mg
[2017-07-06 05:09] LABS: INR-International Normal Ratio 1.3; Prothrombin Time 16.9 SEC (12.0-14.7)
[2017-07-06 05:27] LABS: Anion Gap 13 mmol/L (10-20); BUN (Urea Nitrogen) 22 mg/dL (8.4-25.7); Calc. Creatinine Clearance 90 mL/min (70-130); Carbon Dioxide 20 mmol/L (23-31); Chloride 104 mmol/L (98-107); Estimated GFR-MDRD Greater than 90; Glucose 125 mg/dL (83-110); Potassium 3.8 mmol/L (3.5-5.1); Sodium 133 mmol/L (136-145)
[2017-07-06 05:53] LABS: #Eosinphils 0.1 thou/uL (0.0-0.7); #Lymphocytes 1.5 thou/uL (1.20-3.40); #Monocytes 0.6 thou/uL (0.11-0.59); #Neutrophils 8.1 thou/uL (1.40-6.50); %Basophils 0.1 % (0.0-1.0); %Eosinophils 0.7 % (0.0-10.0); %Lymphocytes 14.2 % (21.0-51.0); %Monocytes 6.2 % (0.0-10.0); %Neutrophils 78.8 % (42.0-75.0); Acanthocytes SLIGHT = 1-5 cells (100X) (None Seen); Anisocytosis SLIGHT = 6-15 cells (100X) (0-5/hpf); Elliptocytes SLIGHT = 2-5 cells (100X) (0-1/hpf); Hemoglobin 10.1 g/dL (14.0-18.0); MDiff Complete? YES; Mean Corpuscular HGB CONC 30.5 g/dL (32.0-36.0); Mean Corpuscular Hemoglobin 22.3 pg (27.0-31.0); Mean Corpuscular Volume 73.2 fl (80.0-94.0); Mean Platelet Volume 6.7 fL (7.4-10.4); PLT Morphology Comment Appears Adequate; Platelet Count 208 thou/uL (130-400); RBC Distribution Width 20.8 % (11.5-14.5); Red Blood Cell (RBC) Count 4.53 mill/uL (4.70-6.10); White Blood Cell (WBC) Count 10.2 thou/uL (4.8-10.8)
[2017-07-06] MEDS: Aspirin 81 mg Enteric Coated Tablet PO SCH (08:22)
[2017-07-06] MEDS: metFORMIN 500 MG TAB PO SCH (08:22)
[2017-07-06] MEDS: Enoxaparin Sodium 30 MG/0.3 ML SYRINGE SC SCH (08:22)
[2017-07-06] MEDS: glipiZIDE 5 MG TAB PO SCH (08:22)
[2017-07-06] MEDS: predniSONE 20 MG TAB PO SCH (08:22)
[2017-07-06] MEDS: Amlodipine 10 MG TAB PO SCH (08:23)
[2017-07-06] MEDS: Lisinopril 20 MG TAB PO SCH (08:23)
[2017-07-06] MEDS: Ferrous Sulfate 325 MG TAB PO SCH (08:23)
[2017-07-06] MEDS: Metoprolol Tartrate 50 MG TAB PO SCH (08:23)
[2017-07-06] MEDS ORDERED: Furosemide 40 MG TAB PO SCH (09:00)
[2017-07-06 11:30] VITALS: BP 173/83; TEMP 97.7
[2017-07-06] MEDS ORDERED: Warfarin Sodium 7.5 MG TAB PO SCH (17:00)
--- NOTE | 2017-07-07 10:02 | DIS ---
DATE OF DISCHARGE: 07/06/2017 DISCHARGE DISPOSITION: Home. FOLLOWUP: [facility] 1 week. Follow up with Dr. Jiménez in 2-3 weeks. ALLERGIES: No known drug allergies. The patient was seen and examined on the day of discharge. Denies any new complaints, no chest pain, shortness of breath, palpitations. DISCHARGE MEDICATIONS: 1. Prednisone 20 mg twice a day for 2 more days. 2. Azithromycin 500 mg daily for 2 more days. 3. Albuterol inhaler as needed. 4. Omnicef 300 mg twice a day for next 2 days. All other home medications were resumed. BRIEF HOSPITAL COURSE: The patient is a 72-year-old male with COPD who presented to the emergency ro om with shortness of breath. His workup was consistent with acute hypoxic respiratory failure second miguel to chronic obstructive pulmonary disease exacerbation. He showed good improvement with oxygen, n ebulizer treatment, steroids and antibiotics. He was seen by Pulmonary, Dr. Jiménez. He has been cl eared by Pulmonary for discharge. He will resume his home CPAP. FINAL DIAGNOSES: 1. Acute hypoxic respiratory failure secondary to chronic obstructive pulmonary disease exacerbation . 2. Ongoing tobacco dependence. Patient was counseled. 3. Hypertension. 4. Diabetes mellitus type 2. 5. Coronary artery disease. 6. Severe obstructive sleep apnea. 7. Paroxysmal atrial fibrillation. 8. Coronary artery disease. 9. Chronic diastolic heart failure. 10. Diabetes mellitus type 2. 11. Chronic anemia, primary care physician to follow. 12. Chronic anticoagulation. 13. Hyponatremia. 14. Hyperglycemia secondary to steroids. Plan of care was discussed with the patient in detail. He stated understanding.
== END 2017-07-06 11:37 | disposition home or self-care (01) | DRG 291 ==
LOC: ERS 15:16 → 2NO 18:34
PROVIDERS: ADMIT Internal Medicine; ATTEND Internal Medicine
DX: I11.0 Hypertensive heart disease with heart failure (principal); J96.01 Acute respiratory failure with hypoxia; E87.1 Hypo-osmolality and hyponatremia; J44.1 Chronic obstructive pulmonary disease with (acute) exacerbation; E11.65 Type 2 diabetes mellitus with hyperglycemia; D64.9 Anemia, unspecified; I48.0 Paroxysmal atrial fibrillation; I50.33 Acute on chronic diastolic (congestive) heart failure; Z95.5 Presence of coronary angioplasty implant and graft; Z95.0 Presence of cardiac pacemaker; G47.33 Obstructive sleep apnea (adult) (pediatric); F17.210 Nicotine dependence, cigarettes, uncomplicated; I25.10 Atherosclerotic heart disease of native coronary artery without angina pectoris; Z71.6 Tobacco abuse counseling; Z79.01 Long term (current) use of anticoagulants; T38.0X5A Adverse effect of glucocorticoids and synthetic analogues, initial encounter
CPT/HCPCS: 36415; 36416; 71045; 80048; 80053; 82553; 82728; 82805; 83540; 83550; 83880; 84466; 84484; 85025; 85060; 85379; 85610; 87040; 87070; 87205; 87633; 87798; 93005; 94640; 94660; 94760; A4216; G8978-GP-CI; G8979-GP-CI; G8980-GP-CI; J0456; J0696; J1650; J1815; J1940; J2920; J7050; J7506; J7620

== ENCOUNTER 2017-10-21 08:09 | Emergency (ER) | payer MEDICARE ==
[2017-10-21] MEDS ORDERED: Nitroglycerin 0.4 MG TAB (25 Tab Bottle) ONE (08:28)
[2017-10-21 08:46] LABS: #Basophils 0.1 thou/uL (0.0-0.2); #Eosinphils 0.1 thou/uL (0.0-0.7); #Lymphocytes 1.2 thou/uL (1.20-3.40); #Monocytes 0.6 thou/uL (0.11-0.59); #Neutrophils 8.6 thou/uL (1.40-6.50); %Basophils 0.8 % (0.0-1.0); %Eosinophils 0.6 % (0.0-10.0); %Lymphocytes 11.6 % (21.0-51.0); %Monocytes 5.5 % (0.0-10.0); %Neutrophils 81.5 % (42.0-75.0); Hemoglobin 11.4 g/dL (14.0-18.0); Mean Corpuscular HGB CONC 32.4 g/dL (32.0-36.0); Mean Corpuscular Volume 77.2 fL (78.0-98.0); Mean Platelet Volume 10.9 fL (7.4-10.4); Platelet Count 183 thou/uL (130-400); RBC Distribution Width 18.3 % (11.5-14.5); Red Blood Cell (RBC) Count 4.54 mill/uL (4.70-6.10); White Blood Cell (WBC) Count 10.6 thou/uL (4.8-10.8)
[2017-10-21 08:52] LABS: INR-International Normal Ratio 1.1; Prothrombin Time 14.1 SEC (12.0-14.7)
[2017-10-21 09:09] LABS: Troponin I 0.014 ng/mL (< 0.028)
[2017-10-21 09:17] LABS: ALT (SGPT) 17 U/L (8-55); AST (SGOT) 15 U/L (5-34); Albumin 4.3 g/dL (3.4-4.8); Alkaline Phosphatase 88 U/L (40-150); Anion Gap 12 mmol/L (10-20); BUN (Urea Nitrogen) 16 mg/dL (8.4-25.7); Bilirubin, Total 0.9 mg/dL (0.2-1.2); Calc. Creatinine Clearance 0 mL/min (70-130); Calcium 9.8 mg/dL (7.8-10.44); Carbon Dioxide 28 mmol/L (23-31); Chloride 102 mmol/L (98-107); Estimated GFR-MDRD 86; Globulin 2.6 g/dL (2.4-3.5); Glucose 91 mg/dL (83-110); Protein, Total 6.9 g/dL (5.8-8.1); Sodium 138 mmol/L (136-145)
--- NOTE | 2017-10-21 09:33 | RAD ---
CHEST 1 VIEW: Date: 10/21/17 HISTORY: Dyspnea. COMPARISON: 07/02/17. FINDINGS: Cardiac silhouette is magnified by projection. Pulmonary vasculature slightly engorged with patchy bi basilar and bilateral perihilar infiltrates, right greater than left. Mediastinum is midline with aor tic calcification and a multilead left subclavian cardiac electronic device. Lungs are hyperinflated. No lobar consolidation. Calcified granulomata are consistent with healed gra nulomatous disease. wellfield technician leads overlie the chest. IMPRESSION: 1. Patchy bibasilar infiltrates are favored to be related to borderline pulmonary vascular congestio n. 2. COPD. 3. Atherosclerosis. POS: [facility]
[2017-10-21] MEDS ORDERED: methylPREDNISolone Sod Succ/PF 125 MG/2 ML VIAL ONE (11:04)
[2017-10-21 15:54] LABS: CKMB 1.1 ng/mL (0-6.6); Troponin I 0.012 ng/mL (< 0.028)
== END 2017-10-21 17:32 | disposition short-term general hospital (02) ==
LOC: ERS 08:09
DX: R07.89 Other chest pain (principal); J44.1 Chronic obstructive pulmonary disease with (acute) exacerbation; E11.9 Type 2 diabetes mellitus without complications; F41.9 Anxiety disorder, unspecified; I10 Essential (primary) hypertension; I48.91 Unspecified atrial fibrillation; Z87.891 Personal history of nicotine dependence; Z79.84 Long term (current) use of oral hypoglycemic drugs; Z79.899 Other long term (current) drug therapy; Z79.82 Long term (current) use of aspirin; Z79.51 Long term (current) use of inhaled steroids
CPT/HCPCS: 36415; 71045; 80053; 82553; 83880; 84484; 85025; 85610; 93005; 94640; 96374; J2930; J7620

== ENCOUNTER 2018-04-03 14:13 | Emergency (ER) | payer MEDICARE ==
[2018-04-03 15:42] LABS: INR-International Normal Ratio 1.1; Prothrombin Time 14.6 SEC (12.0-14.7)
== END 2018-04-03 15:58 | disposition home or self-care (01) ==
LOC: ERS 14:13
DX: M79.81 Nontraumatic hematoma of soft tissue (principal); I48.91 Unspecified atrial fibrillation; E11.9 Type 2 diabetes mellitus without complications; J44.9 Chronic obstructive pulmonary disease, unspecified; F41.9 Anxiety disorder, unspecified; Z87.891 Personal history of nicotine dependence; Z79.01 Long term (current) use of anticoagulants
CPT/HCPCS: 36415; 85610; 99283

== ENCOUNTER 2018-06-26 12:17 | Inpatient (IN) | payer MEDICARE ==
[2018-06-26] MEDS ORDERED: methylPREDNISolone Sod Succ/PF 125 MG/2 ML VIAL ONE (12:42)
[2018-06-26] MEDS ORDERED: Magnesium 2 GM/50 ML BAG (IN WATER) ONE (12:42)
--- NOTE | 2018-06-26 12:53 | RAD ---
Exam: Chest one view HISTORY:Short of breath Comparison: 05/15/2018 FINDINGS: Lungs: Interstitial prominence bilaterally Cardiac silhouette:Normal size cardiac silhouette. Vascular calcification. Redemonstration of left si de triple lead cardiac pacing device. Pulmonary vessels: Persistent enlargement Pleural Spaces: No significant effusion Pneumothorax: None Osseous abnormalities: None of acuity. IMPRESSION: Interstitial prominence bilaterally which may be on the basis of mild fluid overload. Cor relate clinically.
[2018-06-26 13:06] LABS: #Basophils 0.1 thou/uL (0.0-0.2); #Eosinphils 0.1 thou/uL (0.0-0.7); #Lymphocytes 0.8 thou/uL (1.20-3.40); #Monocytes 0.9 thou/uL (0.11-0.59); #Neutrophils 5.2 thou/uL (1.40-6.50); %Basophils 1.2 % (0.0-1.0); %Eosinophils 1.5 % (0.0-10.0); %Lymphocytes 11.1 % (21.0-51.0); %Monocytes 12.8 % (0.0-10.0); %Neutrophils 73.5 % (42.0-75.0); Hemoglobin 12.3 g/dL (14.0-18.0); Mean Corpuscular HGB CONC 32.1 g/dL (32.0-36.0); Mean Corpuscular Hemoglobin 26.3 pg (27.0-31.0); Mean Corpuscular Volume 81.9 fL (78.0-98.0); Mean Platelet Volume 11.1 fL (7.4-10.4); Platelet Count 140 thou/uL (130-400); Red Blood Cell (RBC) Count 4.69 mill/uL (4.70-6.10); White Blood Cell (WBC) Count 7.1 thou/uL (4.8-10.8)
[2018-06-26 13:25] LABS: ALT (SGPT) 13 U/L (8-55); AST (SGOT) 18 U/L (5-34); Albumin 4.1 g/dL (3.4-4.8); Alkaline Phosphatase 90 U/L (40-150); Anion Gap 15 mmol/L (10-20); BUN (Urea Nitrogen) 18 mg/dL (8.4-25.7); Bilirubin, Total 0.6 mg/dL (0.2-1.2); Calc. Creatinine Clearance 0 mL/min (70-130); Calcium 9.3 mg/dL (7.8-10.44); Carbon Dioxide 23 mmol/L (23-31); Chloride 104 mmol/L (98-107); Estimated GFR-MDRD 83; Globulin 2.6 g/dL (2.4-3.5); Glucose 123 mg/dL (83-110); Protein, Total 6.7 g/dL (5.8-8.1); Sodium 138 mmol/L (136-145)
[2018-06-26 15:46] VITALS: BMI 25.7
[2018-06-26] MEDS ORDERED: Acetaminophen 325 MG TAB PO PRN (17:01)
[2018-06-26] MEDS ORDERED: Ondansetron PF 4 MG/2 ML Vial IVP PRN (17:01)
[2018-06-26] MEDS ORDERED: guaiFENesin 200 MG TAB PO PRN (17:05)
[2018-06-26] MEDS ORDERED: Sodium Chloride 0.9% 1,000 ML IV SCH (17:15)
[2018-06-26] MEDS ORDERED: Bacteriostatic Water 30 ML VIAL FS PRN (18:02)
[2018-06-26] MEDS: methylPREDNISolone Sod Succ/PF 125 MG/2 ML VIAL IVP SCH ×2 (18:17→23:53)
[2018-06-26] MEDS: Mometasone/Formoterol 120 PUFF INHALER INH SCH (18:50)
[2018-06-26] MEDS: cefTRIAXone\\ROCEPHIN 1 GM in Sodium Chloride 0.9% 100 ML IVPB SCH (19:49)
[2018-06-26] MEDS: Famotidine 20 MG TAB PO SCH (19:53)
[2018-06-26] MEDS: Atorvastatin Calcium 20 MG TAB PO SCH (19:54)
[2018-06-26] MEDS: Azithromycin 500 MG in Sodium Chloride 0.9% 250 ML 250 ML IVPB SCH (20:37)
[2018-06-26] MEDS ORDERED: Prevnar 13-Val Conj/PF 0.5 ML SYRINGE IM ONE (21:00)
[2018-06-27] MEDS: methylPREDNISolone Sod Succ/PF 125 MG/2 ML VIAL IVP SCH ×2 (05:04→12:03)
[2018-06-27 05:33] LABS: #Lymphocytes 0.6 thou/uL (1.20-3.40); #Monocytes 0.2 thou/uL (0.11-0.59); %Basophils 0.5 % (0.0-1.0); %Eosinophils 0.2 % (0.0-10.0); %Lymphocytes 20.4 % (21.0-51.0); %Monocytes 5.9 % (0.0-10.0); Hemoglobin 12.1 g/dL (14.0-18.0); Mean Corpuscular HGB CONC 31.7 g/dL (32.0-36.0); Mean Corpuscular Hemoglobin 26.1 pg (27.0-31.0); Mean Corpuscular Volume 82.5 fL (78.0-98.0); Mean Platelet Volume 11.4 fL (7.4-10.4); Platelet Count 122 thou/uL (130-400); RBC Distribution Width 17.8 % (11.5-14.5); Red Blood Cell (RBC) Count 4.62 mill/uL (4.70-6.10); White Blood Cell (WBC) Count 2.8 thou/uL (4.8-10.8)
[2018-06-27 05:54] LABS: Anion Gap 13 mmol/L (10-20); BUN (Urea Nitrogen) 24 mg/dL (8.4-25.7); Calc. Creatinine Clearance 72 mL/min (70-130); Carbon Dioxide 21 mmol/L (23-31); Chloride 107 mmol/L (98-107); Estimated GFR-MDRD 76; Glucose 282 mg/dL (83-110); Potassium 4.4 mmol/L (3.5-5.1); Sodium 137 mmol/L (136-145)
[2018-06-27] MEDS: Mometasone/Formoterol 120 PUFF INHALER INH SCH ×2 (09:02→19:08)
[2018-06-27] MEDS: Amlodipine 10 MG TAB PO SCH (09:04)
[2018-06-27] MEDS: Famotidine 20 MG TAB PO SCH ×2 (09:04→20:32)
[2018-06-27] MEDS: Aspirin 81 mg Enteric Coated Tablet PO SCH (09:04)
[2018-06-27] MEDS: Enoxaparin Sodium 40 MG/0.4 ML SYRINGE SC SCH (09:05)
--- NOTE | 2018-06-27 09:25 | HP ---
CHIEF COMPLAINT: Shortness of breath. HISTORY OF PRESENT ILLNESS: A 73-year-old man with history of end-stage COPD on home oxygen 4 to 5 L at night with CPAP with multiple admission in the hospital with COPD exacerbation, atrial fibrillation and flutter, hypertension, diabetes, sleep apnea, history of CAD. He presented to the hospital for shortness of breath. He tried to go to bathroom and could not get to the bathroom. He was profoundly short of breath. He called the EMS and he was very hypoxic, breathing more than 30 per minute, saturations were less than 80. He was transferred to hospital, and over there, he got IV Solu-Medrol, multiple nebulizer treatment, did not improve and thus placed on BiPAP and admitted to the hospital for acute on chronic respiratory failure in IMCU, and on further questioning, he denies any chest pain. He does have chronic cough. No chest pain. No any sick contacts. He has been compliant with medication. When he come to ER; his vital signs; pulse 63, blood pressure 163/87 , respiratory rate 26 to 33, temperature 98.4. REVIEW OF SYSTEMS: All systems were reviewed. He has some chronic edema in lower extremity. All other systems were negative except for the positive noted in the history and physical present. PAST HISTORY: 1. COPD. 2. Atrial fibrillation. 3. Hypertension. 4. Diabetes. 5. Sleep apnea. 6. CAD. PAST SURGERY HISTORY: 1. Pacemaker placement. 2. Cardiac stent in 1997. 3. Left hand surgery. 4. Left leg surgery multiple times for fracture. SOCIAL HISTORY: Former cigarette smokers, quit 6 months ago. No alcohol. No drugs. Not . He lives in resident facility. He is a DNR. FAMILY HISTORY: Reviewed, not pertinent to current illness. ALLERGIES: HE IS NOT ALLERGIC TO MEDICATION. MEDICATIONS: He is taking at home: 1. Metformin 500 mg twice daily. 2. Lipitor 20 mg at bedtime. 3. Aspirin 81 daily. 4. Glipizide 5 mg. 5. Guaifenesin 1200 mg every 6 hours. 6. Trazodone 50 mg at bedtime. 7. Cetirizine 10 mg. 8. Lisinopril 20 mg. 9. Doxepin 10 mg. PHYSICAL EXAMINATION: GENERAL: This is an elderly man, lying in bed on BiPAP, in moderate distress. VITAL SIGNS: Pulse 70, blood pressure 160/80, respiratory rate 28, temperature 98.4. HEENT: Head is atraumatic, normocephalic. Pupils are round and reactive, on BiPAP. NECK: Supple. No JVD. No thyromegaly. No carotid bruit. CVS: S1 and S2 are audible. No S3 or S4. CHEST: Diminished breath sounds with diffuse expiratory wheezing and rales noted. ABDOMEN: Soft, nontender, and nondistended. Positive bowel sounds. No mass or organomegaly. EXTREMITIES: Trace pedal edema, more right than left and peripheral pulses are diminished. NEUROLOGIC: He is alert and oriented x3. No focal deficit. PSYCHIATRIC: Appropriate and normal affect and behavior. SKIN: Warm and dry without lesion. LABORATORY DATA: Sodium 138, potassium 4.0, chloride 104, carbon dioxide 23, anion gap 15, BUN 18, creatinine 0.8, glucose 123, calcium 9.3. Total bilirubin 0.6, AST 18, ALT 13, alkaline phosphatase 90. Serum total protein 6.7, albumin 4.1, globulin 2.6, WBC 7.1, hemoglobin 12.3, hematocrit 30.4, and platelets 140. Chest x-ray shows chronic changes, no fluid overload. ASSESSMENT AND PLAN: 1. Acute on chronic respiratory failure. Continue oxygen, nebulizer, BiPAP, and IV steroids. Pulmonology consulted. 2. Chronic obstructive pulmonary disease exacerbation. Continue above. Rocephin and Zithromax empirically. 3. Diabetes mellitus. We will continue regular insulin sliding protocol. 4. Atrial fibrillation with pacemaker placement. We will continue on Metoprolol. 5. Hypertension. Continue amlodipine and lisinopril. 6. Obstructive sleep apnea. We will continue BiPAP at night. 7) DVT Prophylaxis, Lovenox Job ID: [id number] [facility]
[2018-06-27] MEDS: glipiZIDE 5 MG TAB PO SCH (10:06)
[2018-06-27] MEDS ORDERED: Loratadine 10 MG TAB PO SCH (16:00)
--- NOTE | 2018-06-27 16:13 | PDOC.PN ---
- Subjective Encounter Start Date: 06/27/18 Encounter Start Time: 11:00 Mr. Jiménez was seen today in follow-up of COPD exacerbation. He says he is breathing a lot better. He denies any chest pain. His cough has improved. - Objective Resuscitation Status - Order Detail: 06/27/18 15:52 Resuscitation Status Routine Resuscitation Status: DNAR: NO Resuscitation Discussed with: The patient at bedside. He has reaffirmed what he has told me in clinic. MAR Reviewed: Yes Vital Signs & Weight: Vital Signs (12 hours) Temp Pulse Pulse Ox 06/27/18 15:15 99.2 F 06/27/18 11:13 97.6 F 06/27/18 09:04 92 06/27/18 07:52 92 L 06/27/18 06:59 97.4 F L 06/27/18 05:04 97.8 F Weight Weight 167 lb 3.2 oz Most Recent Monitor Data Heart Rate from ECG 73 NIBP 180/76 NIBP BP-Mean 110 Respiration from ECG 28 SpO2 92 I&O: 06/26/18 06/27/18 06/28/18 06:59 06:59 06:59 Intake Total 240 Output Total 1200 850 Balance -960 -850 Result Diagrams: 06/27/18 05:02 06/27/18 05:01 Additional Labs: Accuchecks 06/27/18 05:23 POC Glucose 234 H Phys Exam - Physical Examination HEENT: PERRLA + wheezing Cardiovascular: RRR, no significant murmur, no rub Gastrointestinal: soft, non-tender, no distention, positive bowel sounds Musculoskeletal: pulses present, edema present trace pedal edema Neurological: non-focal, normal sensation Dx/Plan (1) Acute on chronic respiratory failure with hypoxemia Code(s): J96.21 - ACUTE AND CHRONIC RESPIRATORY FAILURE WITH HYPOXIA Status: Acute (2) CAD (coronary artery disease) Code(s): I25.10 - ATHSCL HEART DISEASE OF [place] CORONARY ARTERY W/O ANG PCTRS Status: Acute Qualifiers: (3) COPD exacerbation Code(s): J44.1 - CHRONIC OBSTRUCTIVE PULMONARY DISEASE W (ACUTE) EXACERBATION Status: Acute Comment: Precipitated by aspiration. Patient had MBS which showed significant aspiration. (4) Atrial fibrillation Code(s): I48.91 - UNSPECIFIED ATRIAL FIBRILLATION Status: Chronic Qualifiers: Atrial fibrillation type: paroxysmal Qualified Code(s): I48.0 - Paroxysmal atrial fibrillation Comment: (5) Diabetes type 2, controlled Code(s): E11.9 - TYPE 2 DIABETES MELLITUS WITHOUT COMPLICATIONS Status: Chronic Qualifiers: Comment: Control still suboptimal due to steroid therapy - Plan * COPD exacerbation- improving- continue Rocephin and Azithromycin, and steroids and dupnebs * Continue his long acting beta-agonist * HTN- continue his home medications and will add PRN Hydralazine and Clonidine * DM- blood glucose is beginning to creep up- will add SSI.
[2018-06-27] MEDS ORDERED: cloNIDine 0.1 MG TAB PO PRN (16:15)
[2018-06-27] MEDS ORDERED: hydrALAZINE 20 MG/ML VIAL SLOW IVP PRN (16:15)
[2018-06-27] MEDS ORDERED: Dextrose 50% Abboject 50 ML SYRINGE SLOW IVP PRN (16:16)
[2018-06-27] MEDS ORDERED: Dextrose 5% in Water 1,000 ML IV PRN (16:16)
[2018-06-27] MEDS: HumaLOG 300 UNITS/3 ML VIAL SC PRN ×2 (16:46→20:33)
[2018-06-27] MEDS: cefTRIAXone\\ROCEPHIN 1 GM in Sodium Chloride 0.9% 100 ML IVPB SCH (19:23)
[2018-06-27] MEDS: Atorvastatin Calcium 20 MG TAB PO SCH (20:33)
[2018-06-27] MEDS: Azithromycin 500 MG in Sodium Chloride 0.9% 250 ML 250 ML IVPB SCH (20:34)
--- NOTE | 2018-06-27 22:13 | CON ---
DATE OF CONSULTATION: 06/27/2018 SERVICE: Pulmonary Medicine. REASON FOR CONSULTATION: COPD exacerbation. HISTORY OF PRESENT ILLNESS: The patient is a 73-year-old white male with past medical history significant for advanced COPD. He was in his usual state of health when he woke up from bed. He walked into the kitchen, was making himself some coffee when he had abrupt onset of shortness of breath and heaviness around his chest, feeling like he was being squeezed. Ultimately, he came to the emergency department because of this issue. In the ER, he was given some nebulized medications, some steroids, and antibiotics. He was tucked into the IMCU. He is feeling a little bit better overnight. He is only about 10% improved at this moment. He did not have any fevers or chills. He is coughing. He is not bring up any sputum. He denies having any orthopnea or paroxysmal nocturnal dyspnea. PAST MEDICAL HISTORY: 1. COPD. 2. Atrial fibrillation. 3. Hypertension. 4. Dyslipidemia. 5. Type 2 diabetes mellitus. 6. Obstructive sleep apnea. 7. Coronary artery disease. PAST SURGICAL HISTORY: 1. Cardiac stent placement. 2. Pacemaker placement. 3. Left hand surgery. 4. Left leg surgery, multiple. SOCIAL HISTORY: Negative for alcohol, tobacco, or illicit drug use. He quit smoking over 6 months ago. Prior to that, he had a greater than 50-pack year history of smoking. He does not note any exposures to chemicals, dust, asbestos , or tuberculosis. FAMILY HISTORY: noncontributory. ALLERGIES: NO KNOWN DRUG ALLERGIES. MEDICATIONS: List of inpatient medications was reviewed. Multiple updates were made at this time. REVIEW OF SYSTEMS: General, head, ears, eyes, nose, throat, cardiovascular, respiratory, GI, , musculoskeletal, neurologic, and skin is negative except as mentioned in the HPI. PHYSICAL EXAMINATION: VITAL SIGNS: Afebrile with a T-max of 99.2. Pulse 64, blood pressure 160/69, respirations 28, saturation 91% on 3 L nasal cannula. GENERAL: The patient is awake and alert, in no apparent distress. LUNGS: Very reduced air entry. There is a prolonged expiratory phase. He is really not moving enough air to appreciate adventitious sounds. HEART: Normal rate, regular. ABDOMEN: Soft, nontender, nondistended. Bowel sounds are positive. MUSCULOSKELETAL: No cyanosis or clubbing. No pitting in the bilateral lower extremities. NEUROLOGIC: Grossly nonfocal. LABORATORY DATA: WBC 2.8, hemoglobin 12.1, platelets 122,000. Basic metabolic profile is otherwise unremarkable. Liver function studies are normal. IMAGING: Chest x-ray demonstrates interstitial prominence to bilateral lung beckman. Otherwise, no acute cardiopulmonary abnormality is identified. I certainly do not see any large consolidating lesions. ASSESSMENT: 1. Acute hypoxic respiratory failure. 2. Chronic obstructive pulmonary disease with acute exacerbation. 3. Chronic systolic and diastolic heart failure. 4. Atrial fibrillation, paroxysmal. 5. Obstructive sleep apnea. DISCUSSION AND PLAN: I am going to check a D-dimer. If this is significantly abnormal, CT of the chest with contrast will be pursued. IV fluids will be interrupted. We will continue his home Lasix. I will give the patient allergy pill per request. He is currently a DNR. I had this conversation with him today as well as previously in clinic. I have talked to him about what his wishes would be in the event if things get worse, not better and he requires intubation, or chest compressions. He would not want either one of those things and would prefer to pass away from natural causes. As such, we will make the appropriate change to the medical record. We will continue his antibiotics, nebulized medications, and steroids. Pulmonary will continue to follow but from my perspective, he is stable for transition to the floor. He can take the BiPAP with him as he has a need for CPAP in the outpatient setting. 70 minutes have been devoted to this patient in various activities. I personally reviewed all imaging studies and laboratory data noted within this document. For fifty percent of this time, I was interacting with the patient at the bedside or coordinating care with the care team. For the remainder of the time I was immediately available to the patient in the hospital unit. Job ID: [id number] [facility]
[2018-06-28] MEDS: HumaLOG 300 UNITS/3 ML VIAL SC PRN ×4 (06:41→19:45)
[2018-06-28] MEDS: Mometasone/Formoterol 120 PUFF INHALER INH SCH ×2 (07:05→19:16)
[2018-06-28] MEDS: predniSONE 20 MG TAB PO SCH (08:14)
[2018-06-28] MEDS: Amlodipine 10 MG TAB PO SCH (08:14)
[2018-06-28] MEDS: Famotidine 20 MG TAB PO SCH ×2 (08:15→19:45)
[2018-06-28] MEDS: Aspirin 81 mg Enteric Coated Tablet PO SCH (08:15)
[2018-06-28] MEDS: Enoxaparin Sodium 40 MG/0.4 ML SYRINGE SC SCH (08:15)
[2018-06-28] MEDS: glipiZIDE 5 MG TAB PO SCH (08:15)
[2018-06-28] MEDS: Loratadine 10 MG TAB PO SCH (08:16)
[2018-06-28] MEDS: cefTRIAXone\\ROCEPHIN 1 GM in Sodium Chloride 0.9% 100 ML IVPB SCH (17:42)
--- NOTE | 2018-06-28 19:11 | PDOC.PN ---
- Subjective Encounter Start Date: 06/28/18 Encounter Start Time: 18:35 f/u COPD. Still requiring supplemental oxygen. Breathing gradually improving, appetite ok, hasn't walked much. Itchy, watery eyes and nose present. - Objective Resuscitation Status - Order Detail: 06/27/18 15:52 Resuscitation Status Routine Resuscitation Status: DNAR: NO Resuscitation Discussed with: The patient at bedside. He has reaffirmed what he has told me in clinic. Vital Signs & Weight: Vital Signs (12 hours) Temp Pulse Resp BP BP BP Pulse Ox 06/28/18 17:04 97.5 F L 63 20 159/74 H 93 L 06/28/18 13:00 97.5 F L 76 20 165/75 H 93 L 06/28/18 08:14 67 166/75 H 06/28/18 08:00 96 06/28/18 07:40 97.3 F L 75 20 166/75 H 94 L Weight Weight 167 lb 3.2 oz Most Recent Monitor Data Heart Rate from ECG 62 NIBP 162/66 NIBP BP-Mean 98 Respiration from ECG 25 SpO2 93 I&O: 06/27/18 06/28/18 06/29/18 06:59 06:59 06:59 Intake Total 240 1070 840 Output Total 1200 1350 Balance -960 -280 840 Result Diagrams: 06/27/18 05:02 06/27/18 05:01 Additional Labs: Accuchecks 06/28/18 06/28/18 06/28/18 16:35 10:53 05:29 POC Glucose 250 H 285 H 232 H 06/27/18 19:54 POC Glucose 355 H Phys Exam - Physical Examination Constitutional: NAD HEENT: PERRLA, moist MMs Neck: supple Occasional expiratory wheeze present Cardiovascular: RRR Gastrointestinal: soft, non-tender Musculoskeletal: no edema Neurological: non-focal, moves all 4 limbs Psychiatric: normal affect, A&O x 3 Skin: no rash Dx/Plan (1) Acute on chronic respiratory failure with hypoxemia Code(s): J96.21 - ACUTE AND CHRONIC RESPIRATORY FAILURE WITH HYPOXIA Status: Acute (2) CAD (coronary artery disease) Code(s): I25.10 - ATHSCL HEART DISEASE OF [place] CORONARY ARTERY W/O ANG PCTRS Status: Acute Qualifiers: (3) Atrial fibrillation Code(s): I48.91 - UNSPECIFIED ATRIAL FIBRILLATION Status: Chronic Qualifiers: Atrial fibrillation type: paroxysmal Qualified Code(s): I48.0 - Paroxysmal atrial fibrillation Comment: (4) Diabetes type 2, controlled Code(s): E11.9 - TYPE 2 DIABETES MELLITUS WITHOUT COMPLICATIONS Status: Chronic Qualifiers: Comment: Control suboptimal due to steroid therapy - Plan * Pulm - wean oxygen as able. Uses CPAP qhs for NURY. Rocephin/Azithromycin. On oral steroids and duonebs. Increase activity. * Leukopenia - new, check AM CBC * Endo - BG high, add Lantus * Cards - HTN, continue same
[2018-06-28] MEDS: Azithromycin 500 MG in Sodium Chloride 0.9% 250 ML 250 ML IVPB SCH (19:44)
[2018-06-28] MEDS: Atorvastatin Calcium 20 MG TAB PO SCH (19:45)
[2018-06-28] MEDS: Insulin Glargine 10 UNITS in Pre-Filled Syringe SC SCH (20:18)
[2018-06-29 04:09] LABS: #Lymphocytes 1.4 thou/uL (1.20-3.40); #Monocytes 0.7 thou/uL (0.11-0.59); #Neutrophils 7.4 thou/uL (1.40-6.50); %Basophils 0.2 % (0.0-1.0); %Eosinophils 0.5 % (0.0-10.0); %Lymphocytes 14.4 % (21.0-51.0); %Monocytes 7.5 % (0.0-10.0); %Neutrophils 77.4 % (42.0-75.0); Hemoglobin 11.5 g/dL (14.0-18.0); Mean Corpuscular HGB CONC 30.9 g/dL (32.0-36.0); Mean Corpuscular Hemoglobin 25.8 pg (27.0-31.0); Mean Corpuscular Volume 83.5 fL (78.0-98.0); Mean Platelet Volume 10.7 fL (7.4-10.4); Platelet Count 128 thou/uL (130-400); Red Blood Cell (RBC) Count 4.45 mill/uL (4.70-6.10); White Blood Cell (WBC) Count 9.5 thou/uL (4.8-10.8)
[2018-06-29 04:30] LABS: Anion Gap 10 mmol/L (10-20); BUN (Urea Nitrogen) 25 mg/dL (8.4-25.7); Calc. Creatinine Clearance 87 mL/min (70-130); Carbon Dioxide 26 mmol/L (23-31); Chloride 106 mmol/L (98-107); Estimated GFR-MDRD Greater than 90; Glucose 211 mg/dL (83-110); Potassium 4.6 mmol/L (3.5-5.1); Sodium 137 mmol/L (136-145)
[2018-06-29] MEDS: Famotidine 20 MG TAB PO SCH ×2 (08:05→20:37)
[2018-06-29] MEDS: glipiZIDE 5 MG TAB PO SCH (08:05)
[2018-06-29] MEDS: Loratadine 10 MG TAB PO SCH (08:05)
[2018-06-29] MEDS: Enoxaparin Sodium 40 MG/0.4 ML SYRINGE SC SCH (08:05)
[2018-06-29] MEDS: Aspirin 81 mg Enteric Coated Tablet PO SCH (08:05)
[2018-06-29] MEDS: Amlodipine 10 MG TAB PO SCH (08:05)
[2018-06-29] MEDS: predniSONE 20 MG TAB PO SCH (08:05)
[2018-06-29] MEDS: Mometasone/Formoterol 120 PUFF INHALER INH SCH ×2 (08:24→19:12)
[2018-06-29] MEDS: HumaLOG 300 UNITS/3 ML VIAL SC PRN ×2 (11:29→16:10)
--- NOTE | 2018-06-29 13:19 | PRG ---
DATE OF SERVICE: 06/29/2018 SERVICE: Pulmonary Medicine. INTERVAL HISTORY: The patient is doing outstanding from respiratory standpoint. Breathing comfortably. He has no complaints of chest pain, fevers, chills, nausea, vomiting, or diarrhea. Otherwise, there has been no interval change to his condition. He has had a coughing fit last night, but his shortness of breath is improving. He has yet to be ambulatory. PHYSICAL EXAMINATION: VITAL SIGNS: Afebrile, pulse 77, blood pressure 183/88, respirations 16, saturation 93% on 1.5 L nasal cannula. 87% on room air. GENERAL: The patient is awake and alert, in no apparent distress. LUNGS: Decent air entry. No prolonged expiratory phase or wheezing is appreciated. HEART: Normal rate and regular. ABDOMEN: Soft, nontender, nondistended. Bowel sounds are positive. MUSCULOSKELETAL: No cyanosis or clubbing. No pitting in the bilateral lower extremities. NEUROLOGIC: Grossly nonfocal. LABORATORY DATA: WBC 9.5, hemoglobin 11.5, and platelets 128,000. Basic metabolic profile is completely unremarkable. ASSESSMENT: 1. Acute on chronic hypoxic respiratory failure. 2. Chronic obstructive pulmonary disease with acute exacerbation. 3. Chronic systolic and diastolic heart failure. 4. Atrial fibrillation, paroxysmal. 5. Obstructive sleep apnea. DISCUSSION AND PLAN: The patient is doing fine from respiratory standpoint. He actually indicates that he is about 80% back to baseline. He is having episodes of coughing paroxysm, but they are much improved. At this point, since the D- dimer is only marginally elevated, and the patient has made such a significant improvement, I think we can forego a CT of the chest for further evaluation. We will continue his antibiotics and nebulized medications, increase mobility as tolerated, and get him out of the hospital in 24 to 48 hours once he feels stable to do so. Job ID: [id number] [facility]
--- NOTE | 2018-06-29 16:39 | PDOC.PN ---
- Subjective Encounter Start Date: 06/29/18 Encounter Start Time: 16:20 F/U COPD. Able to walk more today with oxygen, but "panting like a dog when I got back to the room." Coughing better. No N/V, no CP. - Objective Resuscitation Status - Order Detail: 06/27/18 15:52 Resuscitation Status Routine Resuscitation Status: DNAR: NO Resuscitation Discussed with: The patient at bedside. He has reaffirmed what he has told me in clinic. Vital Signs & Weight: Vital Signs (12 hours) Temp Pulse Resp BP Pulse Ox 06/29/18 08:24 65 16 93 L 06/29/18 08:05 77 06/29/18 08:00 91 L 06/29/18 07:35 97.4 F L 77 24 H 183/88 H 91 L Weight Weight 167 lb 3.2 oz Most Recent Monitor Data Heart Rate from ECG 62 NIBP 162/66 NIBP BP-Mean 98 Respiration from ECG 25 SpO2 93 I&O: 06/28/18 06/29/18 06/30/18 06:59 06:59 06:59 Intake Total 1070 1180 260 Output Total 1350 Balance -280 1180 260 Result Diagrams: 06/29/18 03:51 06/29/18 03:51 Additional Labs: Accuchecks 06/29/18 06/29/18 06/28/18 11:18 05:56 19:41 POC Glucose 193 H 169 H 329 H 06/28/18 16:35 POC Glucose 250 H Phys Exam - Physical Examination Breathing comfortably at rest. HEENT: moist MMs, oral pharynx no lesions Neck: no JVD, supple Respiratory: wheezing present occasional Cardiovascular: RRR Gastrointestinal: soft, non-tender Musculoskeletal: no edema Neurological: non-focal, moves all 4 limbs Psychiatric: normal affect, A&O x 3 Skin: no rash Dx/Plan (1) Acute on chronic respiratory failure with hypoxemia Code(s): J96.21 - ACUTE AND CHRONIC RESPIRATORY FAILURE WITH HYPOXIA Status: Acute (2) CAD (coronary artery disease) Code(s): I25.10 - ATHSCL HEART DISEASE OF [place] CORONARY ARTERY W/O ANG PCTRS Status: Acute Qualifiers: (3) Atrial fibrillation Code(s): I48.91 - UNSPECIFIED ATRIAL FIBRILLATION Status: Chronic Qualifiers: Atrial fibrillation type: paroxysmal Qualified Code(s): I48.0 - Paroxysmal atrial fibrillation Comment: (4) Diabetes type 2, controlled Code(s): E11.9 - TYPE 2 DIABETES MELLITUS WITHOUT COMPLICATIONS Status: Chronic Qualifiers: Comment: Control suboptimal due to steroid therapy - Plan * Pulm - NURY on qhs CPAP * Patient will require home oxygen at discharge, referral confirmed with case management. Appreciate Dr. Jiménez's care. * Continue Rocephin/Azithromycin while in hospital. Continue oral steroids. Increase activity. * Leukopenia - resolved, no further labs ordered * Endo - BG elevated, Lantus initiated 06/28, increase to 15u qhs * Cards - HTN, continue same * DVT prophy - Lovenox * DNR * Goal home with home oxygen 06/30 pending tolerance of increased activity
[2018-06-29] MEDS: cefTRIAXone\\ROCEPHIN 1 GM in Sodium Chloride 0.9% 100 ML IVPB SCH (18:45)
[2018-06-29] MEDS: Atorvastatin Calcium 20 MG TAB PO SCH (20:37)
[2018-06-29] MEDS: Insulin Glargine 10 UNITS in Pre-Filled Syringe SC SCH (20:38)
[2018-06-29] MEDS: Azithromycin 500 MG in Sodium Chloride 0.9% 250 ML 250 ML IVPB SCH (20:38)
[2018-06-29] MEDS ORDERED: Benzonatate 100 MG CAP PO PRN (21:07)
[2018-06-29] MEDS ORDERED: Diabetic Tussin 200 MG/10 ML UDCUP PO PRN (21:07)
[2018-06-30] MEDS: HumaLOG 300 UNITS/3 ML VIAL SC PRN ×2 (06:48→11:11)
[2018-06-30] MEDS: Famotidine 20 MG TAB PO SCH (08:17)
[2018-06-30] MEDS: predniSONE 20 MG TAB PO SCH (08:17)
[2018-06-30] MEDS: Loratadine 10 MG TAB PO SCH (08:18)
[2018-06-30] MEDS: Amlodipine 10 MG TAB PO SCH (08:18)
[2018-06-30] MEDS: Enoxaparin Sodium 40 MG/0.4 ML SYRINGE SC SCH (08:19)
[2018-06-30] MEDS: Mometasone/Formoterol 120 PUFF INHALER INH SCH (08:19)
[2018-06-30] MEDS: glipiZIDE 5 MG TAB PO SCH (08:23)
[2018-06-30] MEDS: Aspirin 81 mg Enteric Coated Tablet PO SCH (08:23)
[2018-06-30] MEDS ORDERED: Furosemide 40 MG TAB PO SCH (09:00)
[2018-06-30 09:39] VITALS: TEMP 97.3
[2018-06-30] MEDS ORDERED: Lisinopril 20 MG TAB PO SCH ×2 (10:15→10:45)
[2018-06-30] MEDS ORDERED: Metoprolol Tartrate 50 MG TAB PO SCH ×3 (10:15→21:00)
[2018-06-30 10:57] VITALS: BP 166/75
--- NOTE | 2018-06-30 11:31 | DIS ---
DATE OF ADMISSION: 06/26/2018 DATE OF DISCHARGE: 06/30/2018 DISCHARGE DIAGNOSES: 1. Acute respiratory failure with hypoxia. 2. Chronic obstructive pulmonary disease exacerbation. 3. Obstructive sleep apnea, on CPAP at night. 4. Chronic systolic and diastolic heart failure. 5. Paroxysmal atrial fibrillation. 6. Coronary artery disease. 7. Hypertension. 8. Type 2 diabetes mellitus. CONSULTS: Pulmonary and Critical Care. HOSPITAL COURSE: The patient is a 73-year-old male with past medical history significant for obstructive sleep apnea, on CPAP at home; chronic systolic and diastolic heart failure; paroxysmal atrial fibrillation; and type 2 diabetes, amongst others, who was admitted due to acute onset of shortness of breath associated with difficulty breathing. The patient was found to be hypoxic and wheezing and was started on oxygen supplementation as well as noninvasive respiratory support, bronchodilators, and steroids as well as antibiotics for COPD exacerbation. The patient improved and BiPAP was weaned off. He, however, continue to require oxygen, hence arrangement for home O2 therapy was made for the patient. He made remarkable improvement and was ambulating and was subsequently discharged home to complete therapy. The patient received 4 dose of azithromycin as well as Rocephin and was discharged on cefdinir for 7 more days. PHYSICAL EXAMINATION: VITAL SIGNS: Temperature 97.5, pulse 76, respiratory rate 20, SpO2 of 93% on nasal cannula oxygen, blood pressure is 165/75. GENERAL: Elderly male, in no obvious distress. Afebrile. Anicteric. Acyanotic. HEENT: Normocephalic, atraumatic. Pupils are equal and reacting to light. Oral mucosa is moist. RESPIRATORY: Fair air entry bilateral with prolonged expiration. No obvious rhonchi was appreciated. CARDIOVASCULAR: Regular rhythm and rate with normal heart sounds one and two. GI: Abdomen is full, soft, nontender, nondistended with normal bowel sounds. EXTREMITIES: Grossly normal looking, atraumatic with no edema, erythema, or cyanosis. NEUROLOGIC: Conscious, alert, oriented x3 with appropriate mental status. Cranial nerves 2 through 12 are intact. The patient is ambulant. CONDITION AT DISCHARGE: Improved. FOLLOWUP: The patient is to follow with PCP in 1 week, and Pulmonary and Critical Care in 2 weeks. DISCHARGE MEDICATIONS: 1. Guaifenesin 200 mg q.4 p.r.n. for cough. 2. Albuterol HFA two puffs inhalation as needed. 3. Amlodipine 10 mg p.o. daily. 4. Lipitor 20 mg p.o. at bedtime. 5. Budesonide 2 puffs inhalation b.i.d. 6. Cetirizine 10 mg capsule p.o. daily p.r.n. for allergy. 7. Glipizide 5 mg p.o. daily. 8. Lisinopril 40 mg p.o. daily. 9. Metformin 500 mg p.o. b.i.d. 10. Metoprolol 50 mg p.o. b.i.d. 11. Trazodone 50 mg daily at bedtime p.r.n. for insomnia. 12. Cefdinir 300 mg p.o. b.i.d. for 7 days. 13. Aspirin 81 mg p.o. daily. 14. Furosemide 20 mg p.o. daily. 15. Ipratropium-albuterol sulfate nebulizer p.r.n. for shortness of breath. 16. Prednisone tapering course. 17. Saccharomyces boulardii (Florastor) 250 mg p.o. daily. TIME SPENT: This discharge took more than 37 minutes. Job ID: [id number]
[2018-06-30] MEDS ORDERED: metFORMIN 500 MG TAB PO SCH (17:00)
[2018-07-01] MEDS ORDERED: Lisinopril 20 MG TAB PO SCH (09:00)
== END 2018-06-30 11:50 | disposition home or self-care (01) | DRG 189 ==
LOC: ERS 12:17 → IMCU/EMU 15:22 → ONC 06-27 18:51
PROVIDERS: ADMIT Family Medicine; ATTEND Family Medicine
PROC: 5A09457 Assistance with Respiratory Ventilation, 24-96 Consecutive Hours, Continuous Positive Airway Pressure (ICD-10-PCS; principal; 2018-06-26)
DX: J96.21 Acute and chronic respiratory failure with hypoxia (principal); J44.1 Chronic obstructive pulmonary disease with (acute) exacerbation; I50.42 Chronic combined systolic (congestive) and diastolic (congestive) heart failure; Z66 Do not resuscitate; I11.0 Hypertensive heart disease with heart failure; G47.33 Obstructive sleep apnea (adult) (pediatric); I48.0 Paroxysmal atrial fibrillation; E11.9 Type 2 diabetes mellitus without complications; I25.10 Atherosclerotic heart disease of native coronary artery without angina pectoris; Z99.89 Dependence on other enabling machines and devices; Z99.81 Dependence on supplemental oxygen; Z95.0 Presence of cardiac pacemaker; Z95.5 Presence of coronary angioplasty implant and graft; Z87.891 Personal history of nicotine dependence; Z79.84 Long term (current) use of oral hypoglycemic drugs; Z79.82 Long term (current) use of aspirin; Z79.899 Other long term (current) drug therapy
CPT/HCPCS: 36415; 36416; 71045; 80048; 80053; 85025; 85379; 93005; 94640; 94660; 96365; 96375; J0456; J0696; J1650; J1825; J2930; J3475; J3490; J7050; J7512; J7620

== ENCOUNTER 2018-11-06 14:14 | Observation (INO) | payer MEDICARE ==
--- NOTE | 2018-11-06 14:52 | RAD ---
Exam: Chest one view portable: HISTORY: COPD Increased linear and interstitial markings noted bilaterally with some hyperinflation. The linear par enchymal changes are more prominent in the right upper lobe and right lower lobe and left lower lobe and appear overall stable from prior study. No new confluent pneumonia, overt edema, or pleural effusion. Left ICD. IMPRESSION: Stable chronic lung changes. Atherosclerosis of the aorta. No significant new process.
[2018-11-06] MEDS ORDERED: Albuterol Sulfate 2.5 mg/3 ml Neb ONE (14:56)
[2018-11-06] MEDS ORDERED: Albuterol Sulfate 2.5 mg/0.5 ml Neb ONE (14:56)
[2018-11-06 15:08] LABS: #Basophils 0.2 thou/uL (0.0-0.2); #Eosinphils 0.4 thou/uL (0.0-0.7); #Lymphocytes 1.5 thou/uL (1.20-3.40); #Monocytes 1.1 thou/uL (0.11-0.59); #Neutrophils 10.4 thou/uL (1.40-6.50); %Basophils 1.3 % (0.0-1.0); %Eosinophils 2.8 % (0.0-10.0); %Lymphocytes 11.3 % (21.0-51.0); %Monocytes 7.9 % (0.0-10.0); %Neutrophils 76.7 % (42.0-75.0); Hemoglobin 13.1 g/dL (14.0-18.0); Mean Corpuscular HGB CONC 33.9 g/dL (32.0-36.0); Mean Corpuscular Hemoglobin 27.7 pg (27.0-31.0); Mean Corpuscular Volume 81.8 fL (78.0-98.0); Mean Platelet Volume 9.5 fL (7.4-10.4); Platelet Count 182 thou/uL (130-400); RBC Distribution Width 16.7 % (11.5-14.5); Red Blood Cell (RBC) Count 4.74 mill/uL (4.70-6.10); White Blood Cell (WBC) Count 13.5 thou/uL (4.8-10.8)
[2018-11-06] MEDS ORDERED: methylPREDNISolone Sod Succ/PF 125 MG/2 ML VIAL ONE (15:11)
[2018-11-06] MEDS ORDERED: Magnesium 2 GM/50 ML BAG (IN WATER) ONE (15:11)
[2018-11-06 15:12] LABS: Actual Bicarbonate (HCO3a) 26.4 mEq/L (22-28); Base Excess (BEa) 2.8 mEq/L (-2.0 to +3.0); CO2 Tension 37.4 mmHg (35.0-45.0); Carboxyhemoglobin (COHb) 0.6 gm% (0.0-3.0); Hemoglobin (Hb) 13.1 g/dL (14.0-18.0); O2 Tension (PaO2) 71.5 mmHg (> 70.0); pH, Arterial 7.47 (7.35-7.45)
[2018-11-06 15:13] LABS: Analyzer IN Cardio ER; Calcium, Ionized 1.13 mmol/L (1.12-1.30); Potassium - ABG Lab 3.93 mmol/L (3.70-5.30); Puncture Site LRA
[2018-11-06 15:29] LABS: ALT (SGPT) 11 U/L (8-55); AST (SGOT) 15 U/L (5-34); Albumin 4.4 g/dL (3.4-4.8); Alkaline Phosphatase 92 U/L (40-150); Anion Gap 13 mmol/L (10-20); BUN (Urea Nitrogen) 11 mg/dL (8.4-25.7); Bilirubin, Total 0.7 mg/dL (0.2-1.2); Calc. Creatinine Clearance 0 mL/min (70-130); Calcium 9.3 mg/dL (7.8-10.44); Carbon Dioxide 25 mmol/L (23-31); Chloride 101 mmol/L (98-107); Estimated GFR-MDRD 78; Globulin 2.5 g/dL (2.4-3.5); Glucose 176 mg/dL (83-110); Potassium 3.9 mmol/L (3.5-5.1); Protein, Total 6.9 g/dL (5.8-8.1); Sodium 135 mmol/L (136-145)
[2018-11-06] MEDS ORDERED: Senokot S 8.6-50 MG TAB PO PRN (16:47)
[2018-11-06] MEDS ORDERED: Acetaminophen 325 MG TAB PO PRN (16:47)
[2018-11-06] MEDS ORDERED: Albuterol Sulfate 2.5 mg/3 ml Neb NEB PRN (16:47)
--- NOTE | 2018-11-06 17:53 | PDOC.FPRHP ---
- History of Present Illness Chief Complaint: SOB History of Present Illness: Pt is a 73 yo M with history of DM II, HTN, CAD, and COPD who presents for shortness of breath. The patient was at home watching television this afternoon. He got up to go to the bathroom and when he came back from the bathroom he began experiencing shortness of breath. He used his nebulizer twice , but he was still short of breath so he decided to come in. He is on 2L of oxygen at baseline. He has not been sick recently or been outside much. He uses a wedge when to sleep on at night. He was admitted this past June for exacerbation. He has no increased sputum production or color change of sputum. Cough is present. ED Course: He received 2 g of Mag in ED, 125 mg Solumedrol, and received duonebs in the ED. - Allergies/Adverse Reactions Allergies Allergy/AdvReac Type Severity Reaction Status Date / Time No Known Drug Allergies Allergy Verified 11/06/18 20:03 - Home Medications Medication Instructions Recorded Confirmed Type Atorvastatin Calcium [Lipitor] 20 mg PO HS 11/03/15 11/06/18 History Budesonide-Formoterol [Symbicort 2 puff INH BID 11/03/15 11/06/18 History 80-4.5] Cetirizine HCl [Allergy Relief] 10 mg PO PRN PRN 11/03/15 11/06/18 History metFORMIN HCl 1,000 mg PO BID-WM 11/03/15 11/06/18 History Aspirin [Ecotrin Low Strength] 81 mg PO DAILY tab 03/26/17 11/06/18 Rx Amlodipine [Norvasc] 10 mg PO DAILY 07/02/17 11/06/18 History Lisinopril [Zestril] 40 mg PO DAILY 07/02/17 11/06/18 History Metoprolol Tartrate 50 mg PO BID 07/02/17 11/06/18 History glipiZIDE [Glipizide] 5 mg PO DAILY 07/02/17 11/06/18 History guaiFENesin [Guaifenesin] 200 mg PO Q4HR PRN 07/02/17 11/06/18 History traZODone HCl [Trazodone HCl] 50 mg PO HS PRN 07/02/17 11/06/18 History Albuterol Sulfate HFA (OR) 2 puff INH Q4H PRN 05/15/18 11/06/18 History [Proventil Hfa (or)] Apixaban [Eliquis] 2.5 mg PO 11/06/18 History - History PMHx: DMII, HTN, CAD, COPD PSHx: Stent x1 20 years ago, Pacemaker 2 years ago, Cataract 01/23 bilaterally, L leg surgery FHx: Heart attack- Mom (83), Dad (61), Aneurysm- Sister Social: Stopped smoking 2 years ago. Smoked 1PPD for >50 years. No recreational drugs or drinking. - Review of Systems General: reports: weight/appetite/sleep changes, fatigue. denies: fever/chills Eyes: denies: vision changes ENT: denies: nasal congestion Respiratory: reports: cough, shortness of breath Cardiovascular: reports: edema. denies: chest pain Gastrointestinal: reports: nausea. denies: vomiting, diarrhea Genitourinary: denies: dysuria Skin: denies: rashes Musculoskeletal: denies: pain, tenderness Neurological: reports: weakness - Vital signs BP: 145/79 HR: 63 RR: 23 Tmax: 98.1 Pox: 96% on 2L Wt: 74.84 - Physical Exam Constitutional: NAD HEENT: normocephalic and atraumatic, PERRLA, EOMI, normal nasal mucosa, MMM Neck: supple, no LAD Chest: no-tender to palpation Heart: RRR, normal S1/S2, no murmurs/rubs/gallops -Lungs: Wheezing present bilaterally Abdomen: soft, non-tender, bowel sounds present Musculoskeletal: normal structure, ROM grossly normal Neurological: CN II-XII intact Skin: no rash/lesions Heme/Lymphatic: no unusual bruising or bleeding Psychiatric: normal mood and affect FMR H&P: Results - Labs Result Diagrams: 11/06/18 14:56 11/06/18 14:56 Lab results: WBC 13.5 thou/uL (4.8-10.8) H 11/06/18 14:56 Hgb 13.1 g/dL (14.0-18.0) L 11/06/18 14:56 Hct 38.8 % (42.0-52.0) L 11/06/18 14:56 MCV 81.8 fL (78.0-98.0) 11/06/18 14:56 Plt Count 182 thou/uL (130-400) 11/06/18 14:56 Neutrophils % 76.7 % (42.0-75.0) H 11/06/18 14:56 ABG pH 7.47 (7.35-7.45) H 11/06/18 14:49 ABG pCO2 37.4 mmHg (35.0-45.0) 11/06/18 14:49 ABG pO2 71.5 mmHg (> 70.0) H 11/06/18 14:49 Sodium 135 mmol/L (136-145) L 11/06/18 14:56 Potassium 3.9 mmol/L (3.5-5.1) 11/06/18 14:56 Chloride 101 mmol/L (98-107) 11/06/18 14:56 Carbon Dioxide 25 mmol/L (23-31) 11/06/18 14:56 BUN 11 mg/dL (8.4-25.7) 11/06/18 14:56 Creatinine 0.94 mg/dL (0.7-1.3) 11/06/18 14:56 Glucose 176 mg/dL (83-110) H 11/06/18 14:56 Calcium 9.3 mg/dL (7.8-10.44) 11/06/18 14:56 Total Bilirubin 0.7 mg/dL (0.2-1.2) 11/06/18 14:56 AST 15 U/L (5-34) 11/06/18 14:56 ALT 11 U/L (8-55) 11/06/18 14:56 Alkaline Phosphatase 92 U/L (40-150) 11/06/18 14:56 Serum Total Protein 6.9 g/dL (5.8-8.1) 11/06/18 14:56 Albumin 4.4 g/dL (3.4-4.8) 11/06/18 14:56 FMR H&P: A/P - Problem List (1) COPD exacerbation Current Visit: No Status: Acute Code(s): J44.1 - CHRONIC OBSTRUCTIVE PULMONARY DISEASE W (ACUTE) EXACERBATION Comment: Precipitated by aspiration. Patient had MBS which showed significant aspiration. (2) Diabetes type 2, controlled Current Visit: No Status: Chronic Code(s): E11.9 - TYPE 2 DIABETES MELLITUS WITHOUT COMPLICATIONS Qualifiers: Diabetes mellitus long-term insulin use: without long-term use Comment: Control suboptimal due to steroid therapy (3) Hypertension Current Visit: No Status: Chronic Code(s): I10 - ESSENTIAL (PRIMARY) HYPERTENSION Qualifiers: (4) CAD (coronary artery disease) Current Visit: No Status: Chronic Code(s): I25.10 - ATHSCL HEART DISEASE OF [place] CORONARY ARTERY W/O ANG PCTRS Qualifiers: Associated angina: without angina - Plan Pt is a 73 yo M with history DMII, HTN, CAD, and COPD presents with SOB 1. Acute Hypoxic Respiratory Failure 2/2 COPD Exacerbation Presented with cough and SOB now on 96 on 2L -ED: 2 g Mag, 125 solumedrol, Duonebs -Duonebs Q4H, Albuterol Q2H -Home Meds: Proair, Symbicort, Guaifensin -Procal ordered -Doxy ordered consider d/c if procal normal. 2. DMII -Continue home Metformin and Glipizide 3. HTN -Continue home meds: Amlodipine and Lisinopril 4. CAD -Continue home meds: Atorvastatin, ASA 5. A fib - Home meds: Eliquis and metoprolol Diet: CC DVT Prophylaxis: Lovenox GI Prophylaxis: Pepcid Code Status: DNR-DNI Dispo: Obs, will be d/c pending clinical improvement. FMR H&P: Upper Level - Plan Date/Time: 11/06/18 6165 IIggy DO, have evaluated this patient and agree with findings/plan as outlined by general internal medicine physician resident. Pertinent changes/additions are listed here. This is a 73 yo male with a pmh of HTN, DM2, COPD, CAD who presents to the ER following a a 4 hour history of SOB. He reports this started suddenly after walking back from the bathroom. He states trying to use his home nebulizer treatement multiple times but this did not improve his symptoms. He states his prolonged SOB brought him to the ER. Pt received a duoneb in route to the ER and another in the ER. Pt also received steroids and magnesium in the ER. Despite this, pt continued having SOB. Pt uses 2L o2 at home. Objective: VS: BP 138/80, HR 99, SpO2 94% 2L nc, Resp 18 General: NAD HEENT: no pharyngial abnormalities Heart: Tachycardic, no murmur Lungs: Decreased air movement, diffuse wheezing with long end-expiratory wheeze Abdomin: Soft, non-distended A/P Acute hypoxic respiratory failure 2/2 COPD exacerbation -S/P mag and steroids -Continue duonebs jefferson and PRN -Doxycycline for 5 days, pending procal -Consider CHF vs. PE if pt does not improve clinically, pending BNP DM2 -Continue home meds -SSI, hypoglycemic protocol, ACHS accuchecks CAD -Continue home meds Addendum - Attending - Attending Attestation Date/Time: 11/06/18 4897 I personally evaluated the patient and discussed the management with Dr. Nicholas Pfeiffer /Jessie. I agree with the History, Examination, Assessment and Plan documented above with any addition or exceptions noted below.
[2018-11-06 19:00] LABS: Troponin I Less than 0.010 ng/mL (< 0.028)
[2018-11-06] MEDS ORDERED: traZODone HCl 50 MG TAB PO PRN (19:50)
[2018-11-06] MEDS ORDERED: Cetirizine HCl 10 MG TAB PO PRN (19:50)
[2018-11-06] MEDS ORDERED: guaiFENesin 200 MG TAB PO PRN (19:50)
[2018-11-06] MEDS ORDERED: Dextrose 5% in Water 1,000 ML IV PRN (19:56)
[2018-11-06] MEDS ORDERED: Dextrose 50% Abboject 50 ML SYRINGE SLOW IVP PRN (19:56)
[2018-11-06] MEDS: Mometasone/Formoterol 120 PUFF INHALER INH SCH (20:25)
[2018-11-06] MEDS: Ipratropium Bromide 2.5 ml Neb NEB SCH (20:26)
[2018-11-06] MEDS: Metoprolol Tartrate 50 MG TAB PO SCH (20:35)
[2018-11-06] MEDS ORDERED: Atorvastatin Calcium 20 MG TAB PO SCH (21:00)
[2018-11-06] MEDS ORDERED: Famotidine 20 MG TAB PO SCH (21:00)
[2018-11-06] MEDS ORDERED: Doxycycline 100 MG CAP PO SCH (21:00)
[2018-11-06 21:28] LABS: Troponin I Less than 0.010 ng/mL (< 0.028)
[2018-11-06 22:00] VITALS: BMI 26.2
[2018-11-07] MEDS: Ipratropium Bromide 2.5 ml Neb NEB SCH ×3 (01:40→13:09)
[2018-11-07] MEDS: Insulin Regular 300 UNITS/3 ML VIAL SC PRN ×2 (05:44→12:37)
[2018-11-07 06:04] LABS: #Lymphocytes 0.8 thou/uL (1.20-3.40); #Monocytes 0.4 thou/uL (0.11-0.59); #Neutrophils 8.2 thou/uL (1.40-6.50); %Basophils 0.3 % (0.0-1.0); %Eosinophils 0.2 % (0.0-10.0); %Lymphocytes 8.3 % (21.0-51.0); %Monocytes 3.9 % (0.0-10.0); %Neutrophils 87.4 % (42.0-75.0); Hemoglobin 12.4 g/dL (14.0-18.0); Mean Corpuscular HGB CONC 32.3 g/dL (32.0-36.0); Mean Corpuscular Hemoglobin 27.1 pg (27.0-31.0); Mean Corpuscular Volume 83.9 fL (78.0-98.0); Mean Platelet Volume 10.2 fL (7.4-10.4); Platelet Count 162 thou/uL (130-400); RBC Distribution Width 16.4 % (11.5-14.5); Red Blood Cell (RBC) Count 4.57 mill/uL (4.70-6.10); White Blood Cell (WBC) Count 9.4 thou/uL (4.8-10.8)
[2018-11-07 06:23] LABS: Anion Gap 14 mmol/L (10-20); BUN (Urea Nitrogen) 18 mg/dL (8.4-25.7); Calc. Creatinine Clearance 73 mL/min (70-130); Calcium 8.8 mg/dL (7.8-10.44); Carbon Dioxide 20 mmol/L (23-31); Chloride 102 mmol/L (98-107); Estimated GFR-MDRD 75; Glucose 239 mg/dL (83-110); Potassium 4.7 mmol/L (3.5-5.1); Sodium 131 mmol/L (136-145)
[2018-11-07] MEDS: Mometasone/Formoterol 120 PUFF INHALER INH SCH (06:48)
--- NOTE | 2018-11-07 06:53 | PDOC.FM ---
- Subjective Subjective: NAEO. Patient reports significant improvement in his SOB since admission. Endorses a persistent cough that he "feels in his chest" but cannot bring anything up. Denies any fever/chills or chest pain. - Objective MAR Reviewed: Yes Vital Signs & Weight: Vital Signs (12 hours) Temp Pulse Resp BP Pulse Ox 11/07/18 06:36 65 12 93 L 11/07/18 03:10 75 20 147/78 H 94 L 11/07/18 01:40 96 11/06/18 23:50 60 24 H 93 L 11/06/18 20:27 97 11/06/18 20:26 20 97 11/06/18 20:25 97 11/06/18 19:45 97.7 F 66 28 H 149/70 H 92 L Weight Weight 78.381 kg Result Diagrams: 11/07/18 05:47 11/07/18 05:47 Phys Exam - Physical Examination Constitutional: NAD HEENT: moist MMs, sclera anicteric Neck: supple, full ROM Respiratory: no wheezing, no rales, no rhonchi Cardiovascular: RRR, no significant murmur Gastrointestinal: positive bowel sounds Neurological: non-focal, moves all 4 limbs Psychiatric: normal affect, A&O x 3 Skin: no rash, normal turgor, cap refill <2 seconds Dx/Plan (1) Acute and chronic respiratory failure with hypoxia Code(s): J96.21 - ACUTE AND CHRONIC RESPIRATORY FAILURE WITH HYPOXIA Status: Acute (2) COPD exacerbation Code(s): J44.1 - CHRONIC OBSTRUCTIVE PULMONARY DISEASE W (ACUTE) EXACERBATION Status: Acute (3) Atrial fibrillation Code(s): I48.91 - UNSPECIFIED ATRIAL FIBRILLATION Status: Chronic Qualifiers: Atrial fibrillation type: paroxysmal Qualified Code(s): I48.0 - Paroxysmal atrial fibrillation (4) CAD (coronary artery disease) Code(s): I25.10 - ATHSCL HEART DISEASE OF [place] CORONARY ARTERY W/O ANG PCTRS Status: Chronic Qualifiers: Associated angina: without angina (5) COPD (chronic obstructive pulmonary disease) Status: Chronic (6) Diabetes type 2, controlled Code(s): E11.9 - TYPE 2 DIABETES MELLITUS WITHOUT COMPLICATIONS Status: Chronic Qualifiers: 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 Acute Hypoxic Respiratory Failure 2/2 COPD Exacerbation - Presented with cough and SOB but is back to baseline O2 requirements of 2L via NC this AM without any issues. - Will continue home Meds including Proair, Symbicort, & Guaifensin & will continue JOSEPHINE & PRN duonebs. - Will d/c abx as procal was WNLs but continue PO steroids for 4 more days to complete a 5 day course. DMII -Continue home Metformin and Glipizide. SSI & hypoglycemia protocol. HTN -Continue home meds. CAD -Continue home meds. A fib - Home meds. Diet: CC, HH, low Na DVT Prophylaxis: Lovenox GI Prophylaxis: None Code Status: DNAR Dispo: Will likely d/c home later today on PO steroids as patient is back to baseline respiratory status. Addendum - Attending - Attending Attestation Date/Time: 11/07/18 3197 I personally evaluated the patient and discussed the management with Dr. Galloway. I agree with the History, Examination, Assessment and Plan documented above with any addition or exceptions noted below. Patient improved this morning, on his baseline O2 level. He reports subjective improvement as well. Consider escalation of home COPD therapy. Continue nebs and steroids. He does not need oral abx at this time. Provide symptomatic support. Monitor through the day but he may be stable for discharge later today.
[2018-11-07] MEDS ORDERED: glipiZIDE 5 MG TAB PO SCH (07:30)
[2018-11-07] MEDS ORDERED: metFORMIN 500 MG TAB PO SCH (08:00)
[2018-11-07] MEDS ORDERED: Apixaban 2.5 MG TAB PO SCH (09:00)
[2018-11-07] MEDS ORDERED: predniSONE 20 MG TAB PO SCH (09:00)
[2018-11-07] MEDS ORDERED: Amlodipine 10 MG TAB PO SCH (09:00)
[2018-11-07] MEDS ORDERED: Enoxaparin Sodium 40 MG/0.4 ML SYRINGE SC SCH (09:00)
[2018-11-07] MEDS ORDERED: Aspirin 81 mg Enteric Coated Tablet PO SCH (09:00)
[2018-11-07] MEDS ORDERED: Lisinopril 20 MG TAB PO SCH (09:00)
[2018-11-07] MEDS ORDERED: guaiFENesin/DM ER PO SCH (09:00)
[2018-11-07] MEDS: Metoprolol Tartrate 50 MG TAB PO SCH (09:48)
[2018-11-07 11:05] VITALS: BP 152/78; TEMP 97.8
--- NOTE | 2018-11-09 10:02 | DIS ---
DATE OF ADMISSION: 11/06/2018 DATE OF DISCHARGE: 11/07/2018 RESIDENT: Maryann Galloway MD ADMITTING ATTENDING: Arturo Jara MD CONSULTS: None. PROCEDURES: Chest x-ray on 11/06/2018, notable for stable chronic lung changes with no significant new process. PRIMARY DIAGNOSES: Acute hypoxic respiratory failure secondary to acute on chronic obstructive pulmonary disease exacerbation. SECONDARY DIAGNOSES: 1. Chronic obstructive pulmonary disease. 2. Type 2 diabetes. 3. Coronary artery disease. 4. Hypertension. 5. Atrial fibrillation. DISCHARGE MEDICATIONS: 1. Symbicort 2 puffs inhaled b.i.d. 2. Cetirizine 10 mg p.o. p.r.n. 3. Atorvastatin 20 mg p.o. at bedtime. 4. Metformin 1000 mg p.o. b.i.d. with meals. 5. Aspirin 81 mg p.o. daily. 6. Lisinopril 40 mg p.o. daily. 7. Metoprolol tartrate 50 mg p.o. b.i.d. 8. Amlodipine 10 mg p.o. daily. 9. Trazodone 50 mg p.o. at bedtime. 10. Guaifenesin 200 mg p.o. q.4 hours p.r.n. 11. Glipizide 5 mg p.o. daily. 12. Proventil HFA 2 puffs inhaled q.4 hours p.r.n. 13. Apixaban 2.5 mg p.o. daily. 14. Acetaminophen 650 mg p.o. q.4 hours p.r.n. 15. Prednisone 40 mg p.o. daily for 3 days. 16. Senokot-S 2 tabs p.o. b.i.d. p.r.n. 17. Spiriva 18 mcg inhaled daily. DISCONTINUED MEDICATIONS: None. HOSPITAL COURSE: The patient is a 73-year-old gentleman with a past medical history significant for COPD normally on 2 L of oxygen via nasal cannula at home at baseline, who presented to the emergency department with a chief complaint of persistent shortness of breath despite using home nebulizer treatments. On EMS's arrival at his house, he was noted to be saturating 86% on room air and his saturations increased to 94% on 2 L nasal cannula. On arrival to the emergency department, routine blood work was obtained, which was notable for elevated white blood cell count of 13.5. An ABG was also obtained, which was within normal limits with the exception of a slightly elevated pH of 7.45 consistent with a chest x-ray was obtained, which showed stable chronic lung changes, but no acute process. The patient was given 2 g of IV magnesium, 125 mg of IV methylprednisolone and a nebulized albuterol treatment before being admitted for close observation overnight. Empiric antibiotics including doxycycline were initiated once the patient arrived to the floor, pending a procalcitonin level, which was within normal limits at 0.01. The next morning, the patient reported his breathing was much improved after receiving scheduled nebulized DuoNeb treatments overnight and he was saturating between 93% to 99% on his baseline home O2 of 2 L via nasal cannula. He was transitioned to p.o. steroids and cleared for discharge home in stable condition with the addition of Spiriva to his daily inhaler regimen to hopefully prevent recurrent readmissions for exacerbations. DISPOSITION: Stable. DISCHARGE INSTRUCTIONS: 1. Location: Home. 2. Diet: Heart-healthy, low-sodium, consistent carb diet. 3. Activity: As tolerated. No restrictions. 4. Followup: The patient was instructed to follow up with his primary care provider in 1 week of discharge. Job ID: [id number]
== END 2018-11-07 15:15 | disposition home or self-care (01) ==
LOC: ERS 14:14 → 2SW 16:22
PROVIDERS: ADMIT Family Medicine; ATTEND Family Medicine
DX: J44.1 Chronic obstructive pulmonary disease with (acute) exacerbation (principal); J96.01 Acute respiratory failure with hypoxia; E11.9 Type 2 diabetes mellitus without complications; I10 Essential (primary) hypertension; I48.91 Unspecified atrial fibrillation; I25.10 Atherosclerotic heart disease of native coronary artery without angina pectoris; Z79.82 Long term (current) use of aspirin; Z79.01 Long term (current) use of anticoagulants; Z79.899 Other long term (current) drug therapy; Z87.891 Personal history of nicotine dependence; Z95.0 Presence of cardiac pacemaker; Z95.5 Presence of coronary angioplasty implant and graft
CPT/HCPCS: 71045; 80048; 80053; 82805; 82962 ×2; 83880; 84145; 84484 ×2; 85025 ×2; 93005; 94640 ×4; 96365; 96375; 99285; G0378 ×3; 36415; 36416; J1815; J2930; J3475; J7512; J7611

== ENCOUNTER 2018-11-26 16:37 | Observation (INO) | payer MEDICARE ==
[2018-11-26] MEDS ORDERED: Furosemide 40 MG/4 ML VIAL ONE (17:19)
[2018-11-26] MEDS ORDERED: methylPREDNISolone Sod Succ/PF 125 MG/2 ML VIAL ONE (17:19)
--- NOTE | 2018-11-26 17:20 | RAD ---
Frontal radiograph chest: 11/26/2018 COMPARISON: 11/06/2018 HISTORY: Shortness of breath FINDINGS: Increased linear interstitial density and pulmonary hyperinflation suggests COPD in the pro per clinical setting. Stable multilead transvenous pacing device. No pneumothorax or pleural fluid. No focal consolidation or alveolar edema. Stable increased linear densities are noted within the righ t upper lobe suggesting scar. IMPRESSION: Chronic findings as detailed above. No acute findings.
[2018-11-26] MEDS ORDERED: Albuterol Sulfate 2.5 mg/0.5 ml Neb ONE (17:41)
[2018-11-26] MEDS ORDERED: Albuterol Sulfate 2.5 mg/3 ml Neb ONE (17:41)
[2018-11-26 17:46] LABS: #Basophils 0.1 thou/uL (0.0-0.2); #Eosinphils 0.3 thou/uL (0.0-0.7); #Lymphocytes 1.3 thou/uL (1.20-3.40); #Monocytes 0.9 thou/uL (0.11-0.59); #Neutrophils 10.6 thou/uL (1.40-6.50); %Basophils 0.8 % (0.0-1.0); %Eosinophils 2.1 % (0.0-10.0); %Lymphocytes 9.5 % (21.0-51.0); %Monocytes 6.9 % (0.0-10.0); %Neutrophils 80.7 % (42.0-75.0); Hemoglobin 12.4 g/dL (14.0-18.0); Mean Corpuscular HGB CONC 32.8 g/dL (32.0-36.0); Mean Corpuscular Hemoglobin 27.9 pg (27.0-31.0); Mean Corpuscular Volume 85.1 fL (78.0-98.0); Platelet Count 145 thou/uL (130-400); RBC Distribution Width 17.4 % (11.5-14.5); Red Blood Cell (RBC) Count 4.44 mill/uL (4.70-6.10); White Blood Cell (WBC) Count 13.1 thou/uL (4.8-10.8)
[2018-11-26 18:07] LABS: ALT (SGPT) 13 U/L (8-55); AST (SGOT) 13 U/L (5-34); Albumin 4.4 g/dL (3.4-4.8); Alkaline Phosphatase 83 U/L (40-150); Anion Gap 15 mmol/L (10-20); BUN (Urea Nitrogen) 11 mg/dL (8.4-25.7); Bilirubin, Total 0.6 mg/dL (0.2-1.2); CK (CPK) 64 U/L (30-200); Calc. Creatinine Clearance 0 mL/min (70-130); Calcium 9.7 mg/dL (7.8-10.44); Carbon Dioxide 24 mmol/L (23-31); Chloride 102 mmol/L (98-107); Estimated GFR-MDRD 82; Globulin 2.2 g/dL (2.4-3.5); Glucose 123 mg/dL (83-110); Potassium 4.3 mmol/L (3.5-5.1); Protein, Total 6.6 g/dL (5.8-8.1); Sodium 137 mmol/L (136-145)
--- NOTE | 2018-11-26 18:46 | ULT ---
Right lower extremity venous Doppler ultrasound 11/26/2018 COMPARISON: None HISTORY: Edema, swelling, assess for DVT TECHNIQUE: Multiplanar grayscale sonographic imaging venous structures right lower extremity obtained with color flow and spectral analysis FINDINGS: Right common femoral vein, greater saphenous vein, profunda femoral vein, femoral vein, pop liteal vein, and posterior tibial vein are patent. Normal blood flow, augmentation, and compression within the deep venous system. No evidence for DVT. IMPRESSION: No evidence for deep venous thrombosis of the right lower extremity.
[2018-11-26 21:42] VITALS: BMI 26.2
[2018-11-26] MEDS ORDERED: CITRIC ACID PO PRN (22:11)
[2018-11-26] MEDS ORDERED: ASPIRIN PO PRN (22:11)
[2018-11-26] MEDS ORDERED: [UNRECOGNIZED DRUG - OTHER] PO PRN (22:11)
[2018-11-26] MEDS ORDERED: traZODone HCl 50 MG TAB PO PRN (22:11)
[2018-11-26] MEDS ORDERED: SOD BICARB PO PRN (22:11)
[2018-11-26] MEDS ORDERED: Loratadine 10 MG TAB PO PRN (22:11)
[2018-11-26] MEDS ORDERED: Dextrose 5% in Water 1,000 ML IV PRN (22:12)
[2018-11-26] MEDS ORDERED: Dextrose 50% Abboject 50 ML SYRINGE SLOW IVP PRN (22:12)
[2018-11-26] MEDS ORDERED: Metoprolol Tartrate 50 MG TAB PO SCH (22:30)
[2018-11-26] MEDS ORDERED: Atorvastatin Calcium 20 MG TAB PO SCH (22:30)
[2018-11-26] MEDS: guaiFENesin 200 MG TAB PO SCH (23:23)
[2018-11-26] MEDS: HumaLOG 300 UNITS/3 ML VIAL SC PRN (23:24)
[2018-11-26] MEDS: methylPREDNISolone Sod Succ 40 MG VIAL IVP SCH (23:25)
[2018-11-26 23:36] LABS: Troponin I Less than 0.010 ng/mL (< 0.028)
[2018-11-27] MEDS: HumaLOG 300 UNITS/3 ML VIAL SC PRN ×4 (05:57→20:42)
[2018-11-27] MEDS: guaiFENesin 200 MG TAB PO SCH ×4 (05:59→23:38)
[2018-11-27] MEDS: methylPREDNISolone Sod Succ 40 MG VIAL IVP SCH ×2 (05:59→11:17)
[2018-11-27] MEDS ORDERED: Furosemide 40 MG/4 ML VIAL SLOW IVP SCH (06:00)
[2018-11-27] MEDS: metFORMIN 500 MG TAB PO SCH ×2 (07:43→16:09)
[2018-11-27 08:14] LABS: INR-International Normal Ratio 1.1; PTT 30.9 SEC (22.9-36.1)
[2018-11-27 08:15] LABS: D-Dimer Test 0.91 *mcg/mL (0.27-0.43)
[2018-11-27] MEDS: Mometasone/Formoterol 120 PUFF INHALER INH SCH ×2 (08:24→18:38)
[2018-11-27 08:27] LABS: #Lymphocytes 0.5 thou/uL (1.20-3.40); #Monocytes 0.2 thou/uL (0.11-0.59); #Neutrophils 5.2 thou/uL (1.40-6.50); %Basophils 0.1 % (0.0-1.0); %Eosinophils 0.5 % (0.0-10.0); %Lymphocytes 9.1 % (21.0-51.0); %Monocytes 2.7 % (0.0-10.0); %Neutrophils 87.6 % (42.0-75.0); Anion Gap 13 mmol/L (10-20); BUN (Urea Nitrogen) 18 mg/dL (8.4-25.7); Calc. Creatinine Clearance 67 mL/min (70-130); Calcium 10.4 mg/dL (7.8-10.44); Carbon Dioxide 24 mmol/L (23-31); Chloride 100 mmol/L (98-107); Cholesterol 184 mg/dl (< 200 Desired); Estimated GFR-MDRD 69; Glucose 264 mg/dL (83-110); HDL Cholesterol 61 mg/dL (>60 Neg Risk); Hemoglobin 14.1 g/dL (14.0-18.0); LDL Cholesterol, Calculated 115 mg/dL; Magnesium 2.2 mg/dL (1.6-2.6); Mean Corpuscular HGB CONC 32.9 g/dL (32.0-36.0); Mean Corpuscular Hemoglobin 27.6 pg (27.0-31.0); Mean Corpuscular Volume 83.9 fL (78.0-98.0); Mean Platelet Volume 9.9 fL (7.4-10.4); Platelet Count 162 thou/uL (130-400); Potassium 4.4 mmol/L (3.5-5.1); RBC Distribution Width 17.6 % (11.5-14.5); Sodium 133 mmol/L (136-145); Triglycerides 41 mg/dL (Less than 150); White Blood Cell (WBC) Count 5.9 thou/uL (4.8-10.8)
[2018-11-27] MEDS: Apixaban 5 MG TAB PO SCH (08:28)
[2018-11-27] MEDS: Lisinopril 20 MG TAB PO SCH (08:28)
[2018-11-27] MEDS: Metoprolol Tartrate 50 MG TAB PO SCH ×2 (08:28→20:13)
[2018-11-27] MEDS: Amlodipine 10 MG TAB PO SCH (08:28)
[2018-11-27] MEDS: Aspirin 81 mg Enteric Coated Tablet PO SCH (08:28)
[2018-11-27] MEDS ORDERED: Non-Formulary Item 1 EACH (Budesonide-Formoterol [Symbicort 80-4.5] 2 PUFF) INH SCH (09:00)
--- NOTE | 2018-11-27 10:58 | PDOC.FPRHP ---
- History of Present Illness Chief Complaint: Shortness of breath History of Present Illness: 73 yo male w/ pmhx of COPD and CHF presents complaining of increased shortness of breath over the past couple days. Pt states that he has increased his use of his home nebulizers but this has not improved his respiratory status. Pt states that he was supposed to be on Spiriva following his last admission however he could not afford this. Pt is on 2L of O2 at baseline. He denies any increased sputum production however feels that it appears castillo now but is usually clear. Denies any fever, chills, congestion, or recent illness. Pt was originally admitted by [facility], however, after initial admission they realized the pt was recently admitted by [facility] and pt's care was transferred to our service. He had received Levaquin and prednisone as well as an increased dose of lasix. Pt's BNP is lightly above baseline however his lungs are without crackles and he has no peripheral edema, denies orthopnea. - Allergies/Adverse Reactions Allergies Allergy/AdvReac Type Severity Reaction Status Date / Time No Known Drug Allergies Allergy Verified 11/26/18 21:52 - Home Medications Medication Instructions Recorded Confirmed Type Atorvastatin Calcium [Lipitor] 20 mg PO HS 11/03/15 11/26/18 History Budesonide-Formoterol [Symbicort 2 puff INH BID 11/03/15 11/26/18 History 80-4.5] Cetirizine HCl [Allergy Relief] 10 mg PO PRN PRN 11/03/15 11/26/18 History metFORMIN HCl 500 mg PO BID-WM 11/03/15 11/26/18 History Aspirin [Ecotrin Low Strength] 81 mg PO DAILY tab 03/26/17 11/26/18 Rx Amlodipine [Norvasc] 10 mg PO DAILY 07/02/17 11/26/18 History Lisinopril [Zestril] 40 mg PO DAILY 07/02/17 11/26/18 History Metoprolol Tartrate 50 mg PO BID 07/02/17 11/26/18 History glipiZIDE [Glipizide] 5 mg PO DAILY 07/02/17 11/26/18 History guaiFENesin [Guaifenesin] 200 mg PO Q6HR 07/02/17 11/26/18 History traZODone HCl [Trazodone HCl] 50 mg PO HS PRN 07/02/17 11/26/18 History Albuterol Sulfate HFA (OR) 2 puff INH Q4H PRN 05/15/18 11/26/18 History [Proventil Hfa (or)] Apixaban [Eliquis] 5 mg PO DAILY 11/06/18 11/26/18 History Aspirin/Sod Bicarb/Citric Acid 1,000 mg PO Q6HR PRN 11/26/18 11/26/18 History [Yaneth-Ivins Extra Strength] Ipratropium/Albuterol Sulfate 3 ml NEB QID 11/26/18 11/26/18 History [Duoneb] - History PMHx: DMII, HTN, CAD, COPD PSHx: Stent x1 20 years ago, Pacemaker 2 years ago, Cataract 01/23 bilaterally, L leg surgery FHx: Heart attack- Mom (83), Dad (61), Aneurysm- Sister Social: Stopped smoking 2 years ago. Smoked 1PPD for >50 years. No recreational drugs or drinking. - Review of Systems General: denies: fever/chills, fatigue Eyes: denies: vision changes, other ENT: denies: nasal congestion, rhinorrhea Respiratory: reports: cough, shortness of breath, exercise intolerance. denies : congestion Cardiovascular: reports: edema (chronic). denies: chest pain, orthopnea Gastrointestinal: denies: nausea, vomiting, diarrhea Genitourinary: denies: dysuria, polyuria Skin: denies: rashes, lesions Musculoskeletal: denies: pain, tenderness Neurological: denies: weakness, other Psychological: denies: other - Vital signs BP: [] HR: [] RR: [] Tmax: [] Pox: []% on [] Wt: [] - Physical Exam Constitutional: NAD, awake, alert and oriented, well developed HEENT: EOMI, MMM Neck: supple, FROM Heart: RRR, pulses present, other (1+ RLE edema) Lungs: CTAB, no respiratory distress, good air movement -Lungs: Few scattered expiratory wheezes Abdomen: soft, non-tender Musculoskeletal: normal tone, ROM grossly normal Neurological: no focal deficit, CN II-XII intact Skin: no rash/lesions, capillary refill <2 seconds Psychiatric: normal mood and affect, good judgment and insight, intact recent and remote memory FMR H&P: Results - Labs Result Diagrams: 11/27/18 07:55 11/27/18 07:55 Lab results: WBC 5.9 thou/uL (4.8-10.8) 11/27/18 07:55 Hgb 14.1 g/dL (14.0-18.0) 11/27/18 07:55 Hct 42.7 % (42.0-52.0) 11/27/18 07:55 MCV 83.9 fL (78.0-98.0) 11/27/18 07:55 Plt Count 162 thou/uL (130-400) 11/27/18 07:55 Neutrophils % 87.6 % (42.0-75.0) H 11/27/18 07:55 Sodium 133 mmol/L (136-145) L 11/27/18 07:55 Potassium 4.4 mmol/L (3.5-5.1) 11/27/18 07:55 Chloride 100 mmol/L (98-107) 11/27/18 07:55 Carbon Dioxide 24 mmol/L (23-31) 11/27/18 07:55 BUN 18 mg/dL (8.4-25.7) 11/27/18 07:55 Creatinine 1.05 mg/dL (0.7-1.3) 11/27/18 07:55 Glucose 264 mg/dL (83-110) H 11/27/18 07:55 Calcium 10.4 mg/dL (7.8-10.44) 11/27/18 07:55 Total Bilirubin 0.6 mg/dL (0.2-1.2) 11/26/18 17:00 AST 13 U/L (5-34) 11/26/18 17:00 ALT 13 U/L (8-55) 11/26/18 17:00 Alkaline Phosphatase 83 U/L (40-150) 11/26/18 17:00 Creatine Kinase 64 U/L (30-200) 11/26/18 17:00 B-Natriuretic Peptide 188.8 pg/mL (0-100) H 11/26/18 17:00 Serum Total Protein 6.6 g/dL (5.8-8.1) 11/26/18 17:00 Albumin 4.4 g/dL (3.4-4.8) 11/26/18 17:00 - Radiology Interpretation Chest x-ray Status: report reviewed by me (Chronic COPD findings) FMR H&P: A/P - Problem List (1) Congestive heart failure (CHF) Current Visit: Yes Status: Acute Code(s): I50.9 - HEART FAILURE, UNSPECIFIED (2) COPD exacerbation Current Visit: No Status: Acute Code(s): J44.1 - CHRONIC OBSTRUCTIVE PULMONARY DISEASE W (ACUTE) EXACERBATION Comment: Precipitated by aspiration. Patient had MBS which showed significant aspiration. (3) Atrial fibrillation Current Visit: No Status: Chronic Code(s): I48.91 - UNSPECIFIED ATRIAL FIBRILLATION Qualifiers: Atrial fibrillation type: paroxysmal Qualified Code(s): I48.0 - Paroxysmal atrial fibrillation Comment: (4) CAD (coronary artery disease) Current Visit: No Status: Chronic Code(s): I25.10 - ATHSCL HEART DISEASE OF [place] CORONARY ARTERY W/O ANG PCTRS Qualifiers: Associated angina: without angina (5) Diabetes type 2, controlled Current Visit: No Status: Chronic Code(s): E11.9 - TYPE 2 DIABETES MELLITUS WITHOUT COMPLICATIONS Qualifiers: Diabetes mellitus continuous churn buttermaker insulin use: without continuous churn buttermaker use Comment: Control suboptimal due to steroid therapy - Plan COPD Exacerbation Presented with cough and SOB Currently sating >95% on baseline 2L NC -Duonebs Q4H -Home Meds: Proair, Symbicort, Guaifensin - Add spiriva - Case management consulted to assist with outpt rx - CXR: Chronic COPD findings, stable - Cont prednisone CHF - Cont home lasix - Echo: EF 30-35% - RLE edema per pt is chronic - US: neg for DVT DMII -Continue home Metformin and Glipizide HTN -Continue home meds: Amlodipine and Lisinopril CAD -Continue home meds: Atorvastatin, ASA A fib - Home meds: Eliquis and metoprolol Diet: CC DVT Prophylaxis: Lovenox GI Prophylaxis: Pepcid Code Status: DNR-DNI Dispo: Obs, will be d/c pending clinical improvement. FMR H&P: Upper Level - Pertinent history 73 yo M with COPD on 2L came to ER for SOB, cough for past few days unimproved with home breathing treatments. Recently discharged in early November for COPD exacerbation in which he was sent home with addition of Spiriva to his COPD meds. It was too expensive so never started it. Denies fevers, chills, or productive cough. Uses CPAP at night. 50 pack year hx. Patient also with hx of CHFrEF but denies lower extremity edema that is new or orthopnea. Patient usually able to walk to mailbox and back without issues; says this hasnt changed recently. - Pertinent findings PMH: CAD with stents, AV vilma block with pacemaker, HTN, IDDM2 VS: 97.8F, 63bpm, 20RR/min, 96% on 2L N.C. PE: Gen: NAD, 2L n.c. in place Cardiac: RRR, no murmurs or rubs Resp: Dec air movement but no wheezing or retractions, no respiratory distress Extrem: trace edema in RLE CXR: No pulm - Plan Date/Time: 11/27/18 1058 A/P 1. Acute on chronic COPD exacerbation -No hypoxia, resting well on 2L (baseline) -Never picked up Spiriva due to affordance, [facility] Will consult CM to get assistance with this -Continue treatment for COPD exacerbation: duonebs, Spiriva, symbicort 2. Elevated BNP -112, CXR with no pulm congestion. Echo in 2017 showing HFpEF with EF 45-50%. Not on home Lasix. Patient denies recent echo in outpt setting, sees Dr. Vick. Will obtain echo in light of extensive cardiac history. -Will change to Lasix daily as patient does not appear clinically overloaded and is not on home Lasix -Pending TTE Please see architect intern note for rest of plan in regards to chronic conditions Dispo: <2 midnights Code: DNI (do not intubate) I, Ronit Murray, have evaluated this patient and agree with findings/plan as outlined by architect intern resident. Pertinent changes/additions are listed here. Addendum - Attending - Attending Attestation Date/Time: 11/27/182134 I personally evaluated the patient and discussed the management with Dr. De Dios/ Trevor at 1030am. H&P repeated by me. I agree with the History, Examination, Assessment and Plan documented above with any addition or exceptions noted below. COPD exac-unable to afford spiriva after last hospital stay- will continue steroids, nebs, O2. Get CM consult to help with medication assistance Mildly elevated BNP- will recheck ECHO
[2018-11-27] MEDS ORDERED: Ipratropium Bromide 2.5 ml Neb NEB PRN (11:18)
[2018-11-27] MEDS ORDERED: predniSONE 20 MG TAB PO SCH (16:15)
[2018-11-27] MEDS ORDERED: Atorvastatin Calcium 20 MG TAB PO SCH (21:00)
--- NOTE | 2018-11-28 05:16 | PDOC.FM ---
- Subjective Subjective: Pt states he does not know of a prior diagnosis of heart failure. 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 Jones in [place], for his A. fib. Pt on FRANCISCO-I and B- pawel. Pt followed by Dr. Jiménez for COPD. Pt was recently discharged for a COPD exacerbation. Pt complains of dyspnea with minimal exertion. As little as walking to the bathroom. Denies any chest pain. States his RLE swells, but is much better today. He has been urinating. - Objective MAR Reviewed: Yes Vital Signs & Weight: Vital Signs (12 hours) Temp Pulse Resp BP Pulse Ox 11/28/18 04:12 97.9 F 73 20 146/65 H 94 L 11/27/18 23:11 97.3 F L 65 18 125/64 94 L 11/27/18 22:39 66 14 95 11/27/18 19:10 97.4 F L 70 16 132/63 93 L 11/27/18 18:26 65 16 95 Weight Weight 77.111 kg I&O: 11/26/18 11/27/18 11/28/18 06:59 06:59 06:59 Intake Total 246 1350 Output Total 1500 3025 Balance -8404 -6529 Result Diagrams: 11/27/18 07:55 11/27/18 07:55 Phys Exam - Physical Examination Constitutional: NAD HEENT: PERRLA, moist MMs, sclera anicteric Neck: no nodes, no JVD, supple, full ROM Respiratory: no wheezing, no rales, no rhonchi Deminished breath sounds throughout all lung beckman. Distant heart sounds. Regular 2+ pulse radially bilaterally. Gastrointestinal: soft, non-tender, no distention, positive bowel sounds Musculoskeletal: pulses present RLE trace edema Neurological: non-focal, normal sensation, moves all 4 limbs Lymphatic: no nodes Psychiatric: normal affect, A&O x 3 Skin: no rash, normal turgor, cap refill <2 seconds Dx/Plan (1) Congestive heart failure (CHF) Code(s): I50.9 - HEART FAILURE, UNSPECIFIED Status: Acute Qualifiers: Heart failure type: systolic Heart failure chronicity: chronic Qualified Code(s): I50.22 - Chronic systolic (congestive) heart failure (2) COPD exacerbation Code(s): J44.1 - CHRONIC OBSTRUCTIVE PULMONARY DISEASE W (ACUTE) EXACERBATION Status: Acute (3) Atrial fibrillation Code(s): I48.91 - UNSPECIFIED ATRIAL FIBRILLATION Status: Chronic Qualifiers: Atrial fibrillation type: paroxysmal Qualified Code(s): I48.0 - Paroxysmal atrial fibrillation (4) CAD (coronary artery disease) Code(s): I25.10 - ATHSCL HEART DISEASE OF [place] CORONARY ARTERY W/O ANG PCTRS Status: Chronic Qualifiers: Associated angina: without angina (5) Chronic anticoagulation Code(s): Z79.01 - SNF (CURRENT) USE OF ANTICOAGULANTS Status: Chronic (6) Dyslipidemia Code(s): E78.5 - HYPERLIPIDEMIA, UNSPECIFIED Status: Chronic (7) Hypertension Code(s): I10 - ESSENTIAL (PRIMARY) HYPERTENSION Status: Chronic Qualifiers: (8) Tobacco abuse Code(s): Z72.0 - TOBACCO USE Status: Chronic - Plan Plan: 1. COPD Exacerbation Presented with cough and SOB Currently sating >95% on baseline 2L NC -Duonebs Q4H -Home Meds: Proair, Symbicort, Guaifensin - Add spiriva - Case management consulted to assist with outpt rx - CXR: Chronic COPD findings, stable - Cont prednisone 2. HFrEF - Cont home lasix - Echo: EF 30-35%. Prior Echo in 2017 showed EF of 40-45% - RLE edema per pt is chronic - US: neg for DVT - Pt is followed by Dr. Jones in [place] at [facility] for cardiac concerns. - Consider heart failure clinic upon discharge. - Pt counseled to weight himself daily to monitor for fluid overload and fluid restriction. 3. DMII -Continue home Metformin and Glipizide - Blood glucose 250's - 329 - Anion Gap 9 - Continue accuchecks and SSI 4. HTN -Continue home meds: Amlodipine and Lisinopril 5. CAD -Continue home meds: Atorvastatin, ASA 6. A fib - Continue Home meds: Eliquis and metoprolol Diet: Consistent Carb DVT Prophylaxis: Lovenox GI Prophylaxis: Pepcid Code Status: DNR-DNI Dispo: Obs, will be d/c pending clinical improvement. Stable Addendum - Attending - Attending Attestation Date/Time: 11/28/18 1142 I personally evaluated the patient and discussed the management with Dr. Acevedo. I agree with the History, Examination, Assessment and Plan documented above with any addition or exceptions noted below. Patient here for worsening NICHOLS that appears to be chronic over the last few weeks to months. He does have new diagnosis of sCHF, but that does not appear to be contributing significantly to his respiratory issues. This is likely flare of his chronic COPD. He is on nebs and steroids. Plan to dc with med assistance for Spiriva. He is in need of general rehab as well as cardiac rehab and will discuss that with him today. He is currently on his chronic home O2 level.
[2018-11-28] MEDS: guaiFENesin 200 MG TAB PO SCH ×3 (05:56→18:28)
[2018-11-28] MEDS: HumaLOG 300 UNITS/3 ML VIAL SC PRN ×2 (05:57→10:57)
[2018-11-28] MEDS ORDERED: Dextrose 5% in Water 1,000 ML IV PRN (07:28)
[2018-11-28] MEDS ORDERED: Dextrose 50% Abboject 50 ML SYRINGE SLOW IVP PRN (07:28)
[2018-11-28] MEDS ORDERED: Insulin Regular 300 UNITS/3 ML VIAL SC PRN (07:28)
[2018-11-28] MEDS ORDERED: HumaLOG 300 UNITS/3 ML VIAL SC SCH (07:30)
[2018-11-28] MEDS: Mometasone/Formoterol 120 PUFF INHALER INH SCH ×2 (07:38→18:24)
[2018-11-28] MEDS: Amlodipine 10 MG TAB PO SCH (08:17)
[2018-11-28] MEDS: metFORMIN 500 MG TAB PO SCH ×2 (08:17→18:27)
[2018-11-28] MEDS: Metoprolol Tartrate 50 MG TAB PO SCH (08:17)
[2018-11-28] MEDS: Aspirin 81 mg Enteric Coated Tablet PO SCH (08:17)
[2018-11-28] MEDS: Apixaban 5 MG TAB PO SCH (08:17)
[2018-11-28] MEDS: Lisinopril 20 MG TAB PO SCH (08:17)
[2018-11-28] MEDS ORDERED: Furosemide 40 MG/4 ML VIAL SLOW IVP SCH (09:00)
[2018-11-28] MEDS ORDERED: predniSONE 20 MG TAB PO SCH (09:00)
[2018-11-28] MEDS: Ipratropium Bromide 2.5 ml Neb NEB SCH ×2 (15:17→18:22)
[2018-11-28 15:48] VITALS: TEMP 97.5
[2018-11-28 15:54] VITALS: BP 157/79
--- NOTE | 2018-11-29 11:53 | DIS ---
DATE OF ADMISSION: 11/26/2018 DATE OF DISCHARGE: 11/28/2018 RESIDENT: Gina Acevedo DO ADMITTING ATTENDING: Dr. Burleson. DISCHARGE ATTENDING: Dr. Jara CONSULTS: Case Management, Heart Failure Clinic, PT and OT, and Rehab Screen. PROCEDURES PERFORMED: None. DIAGNOSES: Heart failure with reduced ejection fraction, chronic obstructive pulmonary disease, atrial fibrillation, coronary artery disease, chronic anticoagulation, dyslipidemia, hypertension, tobacco abuse disorder, diabetes type 2. DISCHARGE MEDICATIONS: 1. Albuterol sulfate two puffs inhaler q.4 hours. 2. Amlodipine 10 mg daily. 3. Eliquis 5 mg daily. 4. Aspirin 81 mg daily. 5. Yaneth-[place] 1000 mg p.o. q.6 hours. 6. Lipitor 20 mg p.o. at bedtime. 7. Symbicort inhaler two puffs inhaler b.i.d. 8. Cetirizine 10 mg p.o. p.r.n. 9. Glipizide 5 mg p.o. daily. 10. Guaifenesin 200 mg p.o. q.6 hours. 11. Atrovent 2.5 mL nebulizer q.6 hours RT. 12. DuoNeb 3 mL nebulizer q.i.d. 13. Lisinopril 40 mg daily. 14. Metformin 500 mg p.o. b.i.d. with meals. 15. Metoprolol 50 mg p.o. daily. 16. Prednisone 40 mg p.o. for three days. 17. Tiotropium bromide or Spiriva 18 mcg inhaled daily. 18. Trazodone 50 mg p.o. at bedtime. HISTORY OF PRESENT ILLNESS/HOSPITAL COURSE: The patient was admitted to the hospital on 11/27/2018 for shortness of breath and cough worsened by exertion. The patient was recently treated in the hospital for COPD exacerbation and thought this was similar. The patient's symptoms were more consistent with heart failure with the chronic lung disease. Echo showed a reduced ejection fraction of 30% to 35%. Recommended at this time that patient has more education for heart failure and be referred to the Heart Failure Clinic and also to inpatient rehab for cardiac rehab. The patient was at baseline respiratory status and agreeable for further rehab plan. DISPOSITION: Stable. DISCHARGE INSTRUCTIONS: 1. Location: Inpatient rehab. 2. Diet: Cardiac diet with low sodium. 3. Activity: As tolerated. 4. Followup: Follow up with primary care in 7 days. Follow up with Heart Failure Clinic and follow up with Dr. Jones Dispatcher Clerk in [place]. Job ID: [id number] MTDD
== END 2018-11-28 19:26 ==
LOC: ERS 16:37 → 2SW 21:18
PROVIDERS: ADMIT Hospitalist; ATTEND Hospitalist
DX: I11.0 Hypertensive heart disease with heart failure (principal); I50.23 Acute on chronic systolic (congestive) heart failure; J44.1 Chronic obstructive pulmonary disease with (acute) exacerbation; I48.0 Paroxysmal atrial fibrillation; I25.10 Atherosclerotic heart disease of native coronary artery without angina pectoris; E78.5 Hyperlipidemia, unspecified; E11.9 Type 2 diabetes mellitus without complications; Z66 Do not resuscitate; Z87.891 Personal history of nicotine dependence; Z79.01 Long term (current) use of anticoagulants; Z79.82 Long term (current) use of aspirin; Z79.84 Long term (current) use of oral hypoglycemic drugs; Z79.899 Other long term (current) drug therapy; Z95.0 Presence of cardiac pacemaker; Z95.5 Presence of coronary angioplasty implant and graft
CPT/HCPCS: 71045; 80048; 80053; 80061; 82550; 82962 ×3; 83735; 83880; 84443; 84484 ×2; 85025 ×2; 85379; 85610; 85730; 93005; 93306; 93971; 94640 ×5; 94660 ×2; 94760; 96374; 96375; 96376 ×3; 97116; 97139; 99285; G0378 ×4; 36415; 36416; J1940; J2920; J2930; J7512; J7611; J7620

== ENCOUNTER 2019-03-07 09:04 | Emergency (ER) | payer MEDICARE ==
[2019-03-07] MEDS ORDERED: Morphine 4 MG/ML VIAL ONE (09:26)
--- NOTE | 2019-03-07 10:17 | RAD ---
XR Hip Rt 2-3 View: 03/07/2019 9:15 AM CLINICAL INDICATION: Pain COMPARISON: None. FINDINGS: Fracture:No fracture. Arthropathy:Moderate arthropathy. Incidental findings:Vascular disease IMPRESSION: 1. No acute osseous abnormality.
--- NOTE | 2019-03-07 11:31 | CT ---
CT right hip, noncontrast CLINICAL HISTORY: Pain FINDINGS: No acute, displaced fracture of the right hip. Chronic osseous deformity of the medial righ t pubic bone is present involving the pubic body with osteophytosis at the pubic symphysis, and osseous irregularity at the medial aspect of the superior and inferior right pubic rami. There is pro minent distention of the partially imaged urinary bladder. No significant soft tissue hematoma visualized. There is vascular disease. Prostate calcifications are present. IMPRESSION: No acute fracture of right hip. Chronic osseous deformity of the medial right pubic bone.
== END 2019-03-07 12:03 ==
LOC: ERS 09:04
DX: M25.551 Pain in right hip (principal); I48.91 Unspecified atrial fibrillation; I10 Essential (primary) hypertension; E11.9 Type 2 diabetes mellitus without complications; J44.9 Chronic obstructive pulmonary disease, unspecified; F41.9 Anxiety disorder, unspecified; Z87.891 Personal history of nicotine dependence; Z79.84 Long term (current) use of oral hypoglycemic drugs; Z79.899 Other long term (current) drug therapy; Z79.82 Long term (current) use of aspirin
CPT/HCPCS: 72170; 96372; J2270

== ENCOUNTER 2019-03-15 11:11 | Inpatient (IN) | payer MEDICARE ==
--- NOTE | 2019-03-15 12:16 | RAD ---
PORTABLE CHEST: Date: 03/15/2019 PROVIDED CLINICAL HISTORY: Shortness of breath. FINDINGS: Comparison with 11/26/2018. Cardiac and mediastinal silhouette is unchanged in appearance. Left subclavian cardiac pacing device is again seen in similar position. There are patchy bibasilar parenchymal opacities that may reflect subsegmental atelectasis and/or pneumonia. Emphysematous changes are again seen. There is no evidence for pleural fluid or pneumothorax. IMPRESSION: Patchy bibasilar parenchymal opacities may reflect subsegmental atelectasis and/or pneumonia. Follow- up is recommended. POS: OFF
[2019-03-15 12:32] LABS: #Basophils 0.1 thou/uL (0.0-0.2); #Eosinphils 0.4 thou/uL (0.0-0.7); #Lymphocytes 1.5 thou/uL (1.20-3.40); #Monocytes 1.3 thou/uL (0.11-0.59); #Neutrophils 10.6 thou/uL (1.40-6.50); %Basophils 0.7 % (0.0-1.0); %Eosinophils 2.8 % (0.0-10.0); %Lymphocytes 10.7 % (21.0-51.0); %Monocytes 9.2 % (0.0-10.0); %Neutrophils 76.7 % (42.0-75.0); Mean Corpuscular HGB CONC 32.9 g/dL (32.0-36.0); Mean Corpuscular Hemoglobin 29.9 pg (27.0-31.0); Mean Corpuscular Volume 90.7 fL (78.0-98.0); Mean Platelet Volume 9.7 fL (7.4-10.4); Platelet Count 187 thou/uL (130-400); RBC Distribution Width 17.6 % (11.5-14.5); Red Blood Cell (RBC) Count 4.01 mill/uL (4.70-6.10); White Blood Cell (WBC) Count 13.8 thou/uL (4.8-10.8)
[2019-03-15 12:36] LABS: Bilirubin Negative (Negative); Blood, Urine Negative (Negative); Clarity Clear (Clear); Glucose, Urine (Dipstick) Normal (Negative); Leukocyte Negative Leu/uL (Negative); Nitrite Negative (Negative); Protein, Urine (Dipstick) Negative (Neg-Trace); Urobilinogen Normal mg/dL (Less than 2)
[2019-03-15 12:40] LABS: ALT (SGPT) 9 U/L (8-55); AST (SGOT) 13 U/L (5-34); Albumin 4.4 g/dL (3.4-4.8); Alkaline Phosphatase 82 U/L (40-110); Anion Gap 11 mmol/L (10-20); BUN (Urea Nitrogen) 10 mg/dL (8.4-25.7); Calc. Creatinine Clearance 0 mL/min (70-130); Calcium 9.6 mg/dL (7.8-10.44); Carbon Dioxide 29 mmol/L (23-31); Chloride 101 mmol/L (98-107); Estimated GFR-MDRD 90; Globulin 2.7 g/dL (2.4-3.5); Glucose 116 mg/dL (83-110); Potassium 4.1 mmol/L (3.5-5.1); Protein, Total 7.1 g/dL (5.8-8.1); Sodium 137 mmol/L (136-145)
[2019-03-15] MEDS ORDERED: cefTRIAXone\\ROCEPHIN 1 GM VIAL ONE (13:57)
[2019-03-15] MEDS ORDERED: Azithromycin 500 MG VIAL ONE (15:13)
[2019-03-15] MEDS ORDERED: methylPREDNISolone Sod Succ/PF 125 MG/2 ML VIAL IVP SCH (16:15)
[2019-03-15] MEDS ORDERED: Budesonide 0.5 MG/2 ML NEB INH SCH (18:30)
[2019-03-15] MEDS ORDERED: CITRIC ACID PO PRN (19:05)
[2019-03-15] MEDS ORDERED: SOD BICARB PO PRN (19:05)
[2019-03-15] MEDS ORDERED: PROVENTIL INHALER 6.7 G (200 INHALATIONS) INH PRN (19:05)
[2019-03-15] MEDS ORDERED: ASPIRIN PO PRN (19:05)
[2019-03-15] MEDS ORDERED: Loratadine 10 MG TAB PO PRN (19:05)
[2019-03-15] MEDS ORDERED: Dextrose 50% Abboject 50 ML SYRINGE SLOW IVP PRN (19:11)
[2019-03-15] MEDS ORDERED: Dextrose 5% in Water 1,000 ML IV PRN (19:11)
[2019-03-15] MEDS ORDERED: Acetaminophen 325 MG TAB PO PRN (19:12)
[2019-03-15] MEDS ORDERED: Bisacodyl 10 MG SUPP PR PRN (19:12)
[2019-03-15] MEDS ORDERED: Senokot S 8.6-50 MG TAB PO PRN (19:12)
[2019-03-15] MEDS ORDERED: Cepastat Lozenges 1 LOZ PO PRN (19:13)
[2019-03-15] MEDS ORDERED: Diabetic Tussin 200 MG/10 ML UDCUP PO PRN (19:13)
[2019-03-15] MEDS ORDERED: Sodium Chloride 0.65% Nasal 44 ML BOT EA NARE PRN ×2 (19:13→19:14)
--- NOTE | 2019-03-15 19:23 | HP ---
PRIMARY CARE PHYSICIAN: [facility]. PRIMARY OLIVE PACKER: Dr. Jiménez. PRIMARY MANAGER FINANCIAL REPORTING: Dr. Vick. CHIEF COMPLAINT: Shortness of breath. HISTORY OF PRESENT ILLNESS: The patient is a 73-year-old male with COPD, on 2 L home oxygen, and congestive heart failure, ejection fraction 30% to 35% in the past, presented to the emergency room with above complaints. Over the last 2-3 days, the patient developed gradual worsening shortness of breath along with chest tightness and wheezing. He was short of breath on minimal exertion and sometimes even at rest. He tried using nebulizer without much relief. He also had cough productive of thick whitish phlegm. He felt feverish and had intermittent chills. He did not record his temperature. He had mild sore throat as well. He denies lower extremity edema or paroxysmal nocturnal dyspnea. No chest pain, palpitations, syncope, or recent immobilization reported. He is compliant with all of his oxygen. His O2 saturation by EMS was 90% on 2 L nasal cannula. When he arrived to the floor, his O2 saturation was in 80s despite 2 L O2 nasal cannula. He was in significant respiratory distress after arrival to his room. In the emergency room, he received azithromycin and ceftriaxone. His chest x-ray was consistent with pneumonia. PAST MEDICAL HISTORY: 1. COPD. 2. Chronic hypoxic respiratory failure, on home oxygen. 3. Chronic systolic heart failure. 4. Atrial fibrillation. 5. Former smoker. 6. Severe obstructive sleep apnea, on CPAP. 7. Coronary artery disease. 8. Diabetes mellitus type 2. 9. Chronic anticoagulation. PAST SURGICAL HISTORY: 1. Pacemaker placement. 2. Coronary stents. 3. Left hand surgery. 4. Multiple left leg surgeries. ALLERGIES: NO KNOWN DRUG ALLERGIES. CURRENT HOME MEDICATIONS: The patient is unable to recall all of his home medications. He states that all of his medications are same since last admission. SOCIAL HISTORY: The patient is a former smoker. He has more than 50 pack year smoking history. He denies any alcohol or drug use. His younger brother is the DPOA. He is full code. He does not wish to be on life support. REVIEW OF SYSTEMS: All other review of systems were reviewed and were found negative. FAMILY HISTORY: Positive for heart disease. Sister with aneurysm. PHYSICAL EXAMINATION: VITAL SIGNS: On arrival, pulse rate is 73 with respirations of 40, O2 saturation 87% on 2 L nasal cannula with blood pressure of 183/75. GENERAL: The patient in moderate respiratory distress, able to complete short phrases. HEENT: Head, atraumatic and normocephalic. Sclerae anicteric. Minimal erythema over the pharynx. No oral lesion. NECK: Supple. No JVD. No carotid bruit. LUNGS: Showed diffuse expiratory wheezing with accessory muscle use and rhonchi. There were some rales at bases. HEART: S1 and S2 present. Regular rate and rhythm. No rubs or gallops. ABDOMEN: Soft, nontender. Bowel sounds present. No rebound or guarding. No costovertebral angle tenderness. EXTREMITIES: Trace edema in bilateral lower extremity. No calf tenderness. SKIN: Warm and dry. LYMPH NODES: No palpable lymph nodes in the neck. NEUROLOGICAL: Grossly nonfocal. PSYCHIATRIC: Alert, awake, oriented x3. Normal affect. LABORATORY FINDINGS: CBC showed WBC 13.8 with hemoglobin 12, hematocrit 36.4, platelet of 187. Chemistry showed sodium 137, potassium 4.1, chloride 101, bicarb 29, BUN of 10, creatinine 0.83. LFTs in normal range. BNP 123. IMAGING STUDIES: Chest x-ray by my review showed patchy bibasilar parenchymal opacity that may reflect pneumonia. EKG by my review showed paced rhythm. IMPRESSION: 1. Acute on chronic hypoxic respiratory failure secondary to chronic obstructive pulmonary disease exacerbation with suspected pneumonia, questionable pneumococcal. 2. Paroxysmal atrial fibrillation, on anticoagulation. 3. Hypertension. 4. Hyperlipidemia. 5. Diabetes mellitus type 2. 6. History of 50-pack year smoking history. Quit 2 years ago. 7. Coronary artery disease status post stent placement. 8. Severe obstructive sleep apnea, on CPAP. 9. Chronic anemia, normochromic, normocytic. 10. Chronic kidney disease, stage 2. 11. Chronic systolic heart failure, ejection fraction 30% to 35% on the last echo, followed by Dr. Vick. 12. Chronic insomnia. PLAN: The patient will be monitored on the telemetry floor due to significant respiratory distress. Consult Pulmonary, Dr. Jiménez. Continue oxygen. We will continue nebulizer treatment every 4 hours. We will add steroid due to significant wheezing and respiratory distress. We will continue empiric antibiotics. Resume selected home medications from last discharge. Repeat labs in a.m. The patient will require 2 to 3 days for stabilization. Job ID: [id number]
[2019-03-15] MEDS: Mometasone/Formoterol 120 PUFF INHALER INH SCH (19:36)
[2019-03-15] MEDS: guaiFENesin ER 600 MG TAB PO SCH (21:42)
[2019-03-15] MEDS: Atorvastatin Calcium 20 MG TAB PO SCH (21:42)
[2019-03-15] MEDS: Famotidine 20 MG TAB PO SCH (21:42)
[2019-03-15] MEDS: methylPREDNISolone Sod Succ 40 MG VIAL IVP SCH ×2 (21:43→23:51)
[2019-03-15] MEDS: Insulin Regular 300 UNITS/3 ML VIAL SC PRN (21:44)
[2019-03-15] MEDS: Calcium Carbonate 500 MG ChewTAB PO PRN (23:50)
[2019-03-15] MEDS: guaiFENesin 200 MG TAB PO SCH (23:59)
[2019-03-16] MEDS: Ipratropium Bromide 2.5 ml Neb NEB SCH ×2 (00:28→06:46)
[2019-03-16 05:04] LABS: #Lymphocytes 0.5 thou/uL (1.20-3.40); #Monocytes 0.2 thou/uL (0.11-0.59); #Neutrophils 9.2 thou/uL (1.40-6.50); %Basophils 0.1 % (0.0-1.0); %Eosinophils 0.2 % (0.0-10.0); %Lymphocytes 4.7 % (21.0-51.0); %Monocytes 1.7 % (0.0-10.0); %Neutrophils 93.2 % (42.0-75.0); Hemoglobin 11.7 g/dL (14.0-18.0); Mean Corpuscular HGB CONC 33.4 g/dL (32.0-36.0); Mean Corpuscular Hemoglobin 30.7 pg (27.0-31.0); Mean Corpuscular Volume 91.9 fL (78.0-98.0); Mean Platelet Volume 9.8 fL (7.4-10.4); Platelet Count 164 thou/uL (130-400); RBC Distribution Width 17.6 % (11.5-14.5); Red Blood Cell (RBC) Count 3.81 mill/uL (4.70-6.10); White Blood Cell (WBC) Count 9.9 thou/uL (4.8-10.8)
[2019-03-16 05:27] LABS: ALT (SGPT) 9 U/L (8-55); AST (SGOT) 11 U/L (5-34); Albumin 4.2 g/dL (3.4-4.8); Alkaline Phosphatase 85 U/L (40-110); Anion Gap 15 mmol/L (10-20); BUN (Urea Nitrogen) 17 mg/dL (8.4-25.7); Bilirubin, Total 1.2 mg/dL (0.2-1.2); Calc. Creatinine Clearance 67 mL/min (70-130); Calcium 9.6 mg/dL (7.8-10.44); Carbon Dioxide 22 mmol/L (23-31); Chloride 101 mmol/L (98-107); Estimated GFR-MDRD 66; Globulin 2.7 g/dL (2.4-3.5); Glucose 350 mg/dL (83-110); Potassium 4.3 mmol/L (3.5-5.1); Protein, Total 6.9 g/dL (5.8-8.1); Sodium 134 mmol/L (136-145)
[2019-03-16] MEDS: guaiFENesin 200 MG TAB PO SCH ×3 (05:45→18:03)
[2019-03-16] MEDS: methylPREDNISolone Sod Succ 40 MG VIAL IVP SCH (05:46)
[2019-03-16] MEDS: Insulin Regular 300 UNITS/3 ML VIAL SC PRN ×4 (05:46→20:59)
[2019-03-16] MEDS: Mometasone/Formoterol 120 PUFF INHALER INH SCH ×2 (07:20→19:48)
[2019-03-16] MEDS ORDERED: Non-Formulary Item 1 EACH (Tiotropium Bromide [Spiriva] 18 MCG) IH SCH (07:30)
[2019-03-16] MEDS ORDERED: glipiZIDE 5 MG TAB PO SCH (07:30)
[2019-03-16] MEDS ORDERED: methylPREDNISolone Sod Succ/PF 125 MG/2 ML VIAL IVP SCH (09:00)
[2019-03-16] MEDS: Aspirin 81 mg Enteric Coated Tablet PO SCH (09:46)
[2019-03-16] MEDS: Amlodipine 10 MG TAB PO SCH (09:46)
[2019-03-16] MEDS: metFORMIN 500 MG TAB PO SCH ×2 (09:46→17:01)
[2019-03-16] MEDS: Calcium Carbonate + Vit D 1 TAB PO SCH ×2 (09:46→17:01)
[2019-03-16] MEDS: Apixaban 5 MG TAB PO SCH (09:46)
[2019-03-16] MEDS: guaiFENesin ER 600 MG TAB PO SCH ×2 (09:47→21:00)
[2019-03-16] MEDS: Famotidine 20 MG TAB PO SCH ×2 (09:47→21:00)
[2019-03-16] MEDS: cefTRIAXone\\ROCEPHIN 1 GM in Sodium Chloride 0.9% 100 ML IVPB SCH (09:47)
[2019-03-16] MEDS: Multivit, Therapeutic 1 TAB PO SCH (09:48)
[2019-03-16] MEDS: NPH, Human Insulin Isophane 300 UNIT/3 ML VIAL SC SCH ×2 (09:48→21:00)
[2019-03-16] MEDS: Saccharomyces boulardii 250 MG CAP PO SCH (09:48)
[2019-03-16] MEDS: Lisinopril 20 MG TAB PO SCH (09:48)
[2019-03-16] MEDS: Azithromycin 500 MG in Sodium Chloride 0.9% 250 ML 250 ML IVPB SCH (10:29)
[2019-03-16] MEDS ORDERED: methylPREDNISolone Sod Succ 40 MG VIAL IVP SCH (14:00)
--- NOTE | 2019-03-16 14:51 | CON ---
DATE OF CONSULTATION: 03/16/2019 SERVICE: Pulmonary Medicine. REASON FOR CONSULTATION: COPD exacerbation. HISTORY OF PRESENT ILLNESS: The patient is a 73-year-old white male with past medical history significant for severe COPD. He is also on oxygen. He has obstructive sleep apnea. He lives at a home. Everybody around him has been sick recently. Ultimately, on Wednesday, he woke up with a new cough. On Wednesday, he started having productive sputum, and shortness of breath was worse. On Wednesday, he started having muscle aches and fatigue. Ultimately, he presented to the emergency department with acute exacerbation of COPD. He denies any current fevers or chills. Actually overnight, he was given some steroids, nebulized medications, antibiotics, and this morning, he is feeling much improved. Otherwise, he is in his usual state of health and has no specific complaints. PAST MEDICAL HISTORY: 1. COPD, severe. 2. Obstructive sleep apnea, severe. 3. Chronic hypoxic respiratory failure. 4. Chronic systolic heart failure. 5. Atrial fibrillation. 6. Coronary artery disease. 7. Type 2 diabetes mellitus. PAST SURGICAL HISTORY: 1. Left leg surgery, multiple. 2. Left hand surgery. 3. Percutaneous coronary intervention with stent placement. 4. Pacemaker placement. ALLERGIES: NO KNOWN DRUG ALLERGIES. MEDICATIONS: List of his inpatient medications was reviewed. Multiple updates were made. SOCIAL HISTORY: Negative for current alcohol, tobacco, or illicit drug use. He has greater than 50 pack-year history of smoking, but quit over about 4 or 5 years ago. He denies any exposures to chemicals, dust, asbestos, or tuberculosis otherwise. FAMILY HISTORY: Noncontributory. REVIEW OF SYSTEMS: General, head, ears, eyes, nose, throat, cardiovascular, respiratory, GI, , musculoskeletal, neurologic, and skin are negative except as mentioned in HPI. PHYSICAL EXAMINATION: VITAL SIGNS: Afebrile, pulse 73, blood pressure 139/69, respirations 20, and saturation 94% on 3 L nasal cannula. GENERAL: The patient is awake and alert, in no apparent distress. LUNGS: There is reduced air entry with a prolonged expiratory phase. Rhonchi, crackles, and wheezing are all present. HEART: Normal rate and regular. ABDOMEN: Soft, nontender, nondistended. Bowel sounds are positive. MUSCULOSKELETAL: No cyanosis or clubbing. 1+ pitting is present in bilateral lower extremities. NEUROLOGIC: Grossly nonfocal. LABORATORY DATA: WBC 9.9 and downtrending, hemoglobin 11.7 and stable, and platelets 164,000. Basic metabolic profile and liver function studies are otherwise unremarkable. Creatinine is gently up trending to 1.09. BNP 122, which is his baseline. Urinalysis is completely unremarkable. IMAGING: Chest x-ray demonstrates interstitial fullness throughout bilateral lung beckman. It is more pronounced at the right base compared to the left base. He also has a degree of atelectasis there. There is a small rim of pleural effusion present on the right. Pulmonary vascular congestion is present. ASSESSMENT: 1. Acute on chronic hypoxic respiratory failure. 2. Chronic obstructive pulmonary disease with acute exacerbation. 3. Viral prodrome. 4. Obstructive sleep apnea. 5. Acute on chronic systolic heart failure. DISCUSSION AND PLAN: We will start diuresing the patient tomorrow morning. I have asked that his care provider bring his CPAP up for him to breathe with tonight. Respiratory virus panel will be sent off. We will continue supportive care including antibiotics, steroids, and nebulized medications. The steroids will be converted over to p.o. Pulmonary will continue to follow for now. 70 minutes have been devoted to this patient in various activities. I personally reviewed all imaging studies and laboratory data noted within this document. For fifty percent of this time, I was interacting with the patient at the bedside or coordinating care with the care team. For the remainder of the time I was immediately available to the patient in the hospital unit. Job ID: [id number] MTDD
--- NOTE | 2019-03-16 15:25 | PDOC.HOSPP ---
- Subjective Encounter Date: 03/16/19 Encounter Time: 13:00 Subjective: Patient seen and examined for Resp failure. Feels gen weak and lightheaded oneal on ambulation. SOB slowly improving. Mild productive cough. No overnight events - Objective Vital Signs & Weight: Vital Signs (12 hours) Temp Pulse Resp BP Pulse Ox 03/16/19 15:03 68 20 03/16/19 11:20 97.3 F L 73 20 139/69 94 L 03/16/19 11:10 65 20 03/16/19 07:48 95 03/16/19 07:36 97.5 F L 66 17 141/65 H 95 03/16/19 07:20 92 L 03/16/19 07:03 74 22 H 92 L 03/16/19 04:00 76 20 170/77 H 92 L Weight Weight 177 lb 4 oz I&O: 03/15/19 03/16/19 03/17/19 06:59 06:59 06:59 Intake Total 480 350 Output Total 750 700 Balance -270 -350 Result Diagrams: 03/16/19 04:44 03/16/19 04:44 Additional Labs: Accuchecks 03/16/19 03/15/19 11:25 20:46 POC Glucose 335 H 303 H Radiology Reviewed by me: Yes (CXR - reviewed) EKG Reviewed by me: Yes (Tele SR) Hospitalist ROS - Review of Systems Cardiovascular: denies: chest pain, palpitations, orthopnea, paroxysmal noc. dyspnea, edema, light headedness, other Gastrointestinal: denies: nausea, vomiting, abdominal pain, diarrhea, constipation, melena, hematochezia, other - Medication Medications: Active Medications Generic Name Dose Route Start Last Admin Trade Name Freq PRN Reason Stop Dose Admin Albuterol/Ipratropium 3 ml 03/15/19 18:30 03/16/19 15:03 Duoneb NEB 3 ml [id number] JOSEPHINE Administration Amlodipine Besylate 10 mg 03/16/19 09:00 03/16/19 09:46 Norvasc PO 10 mg DAILY JOSEPHINE Administration Apixaban 5 mg 03/16/19 09:00 03/16/19 09:46 Eliquis PO 5 mg DAILY JOSEPHINE Administration Aspirin 81 mg 03/16/19 09:00 03/16/19 09:46 Ecotrin PO 81 mg DAILY JOSEPHINE Administration Atorvastatin Calcium 20 mg 03/15/19 21:00 03/15/19 21:42 Lipitor PO 20 mg HS JOSEPHINE Administration Calcium Carbonate 1,000 mg 03/15/19 19:12 03/15/19 23:50 Tums PO 1,000 mg Q4H PRN Administration Heartburn or Indigestion Calcium/Vitamin D 1 tab 03/16/19 08:00 03/16/19 09:46 Caltrate 600 + Vit D PO 1 tab BID-WM JOSEPHINE Administration Famotidine 20 mg 03/15/19 21:00 03/16/19 09:47 Pepcid PO 20 mg BID JOSEPHINE Administration Glipizide 5 mg 03/16/19 07:30 03/16/19 09:46 Glucotrol PO 5 mg DAILY-AC JOSEPHINE Administration Guaifenesin 200 mg 03/15/19 23:59 03/16/19 13:37 Organ-I Nr PO 200 mg Q6HR JOSEPHINE Administration Guaifenesin 600 mg 03/15/19 21:00 03/16/19 09:47 Mucinex PO 600 mg Q12HR JOSEPHINE Administration Azithromycin 500 mg/ Sodium 250 mls @ 250 mls/hr 03/16/19 09:00 03/16/19 10: 29 Chloride IVPB 250 mls DAILY JOSEPHINE Administration Ceftriaxone Sodium 1 gm/ 100 mls @ 200 mls/hr 03/16/19 09:00 03/16/19 09:47 Sodium Chloride IVPB 100 mls DAILY JOSEPHINE Administration Insulin Human NPH 15 unit 03/16/19 09:00 03/16/19 09:48 Humulin N SC 15 unit BID JOSEPHINE Administration Insulin Human Regular 0 units 03/15/19 19:11 03/16/19 11:45 Humulin R SC 8 unit .MODERATE SLIDING SC PRN Administration Moderate Correctional Scale Insulin Human Regular 0 units 03/15/19 19:11 03/15/19 21:44 Humulin R SC 4 unit .BEDTIME SLIDING SC PRN Administration Bedtime Correctional Scale Lisinopril 40 mg 03/16/19 09:00 03/16/19 09:48 Zestril PO 40 mg DAILY JOSEPHINE Administration Metformin HCl 500 mg 03/16/19 08:00 03/16/19 09:46 Glucophage PO 500 mg BID-WM JOSEPHINE Administration Metoprolol Succinate 50 mg 03/16/19 09:00 03/16/19 09:48 Toprol Xl PO 50 mg DAILY JOSEPHINE Administration Mometasone Furoate/Formoterol Fumar 2 puff 03/15/19 18:30 03/16/19 07:20 Dulera 200 Mcg/5 Mcg Inhaler INH 2 puff BID-RT JOSEPHINE Administration Multivitamins 1 tab 03/16/19 09:00 03/16/19 09:48 Theragran PO 1 tab DAILY JOSEPHINE Administration Saccharomyces Boulardii 250 mg 03/16/19 09:00 03/16/19 09:48 Florastor PO 250 mg DAILY JOSEPHINE Administration Sodium Chloride 10 ml 03/15/19 21:00 03/16/19 09:48 Flush - Normal Saline IVF 10 ml Q12HR JOSEPHINE Administration - Exam Neck: supple, no JVD Heart: RRR, no gallops, no rubs, normal peripheral pulses Respiratory: normal chest expansion, rales, rhonchi, wheezes Gastrointestinal: soft, non-tender, non-distended, normal bowel sounds Extremities: no cyanosis, no clubbing, 1+ LE edema Neurological: no new deficit Psychiatric: normal affect, A&O x 3 Hosp A/P - Plan DVT proph w/SCDs Acute on chronic hypoxic respiratory failure secondary to COPD exacerbation Suspected pneumonia ?pneumococcal. Paroxysmal atrial fibrillation, on anticoagulation. Hypertension. Hyperlipidemia. Diabetes mellitus type 2. Hyponatremia h/o 50-pack year smoking history. Quit 2 years ago. Coronary artery disease status post stent placement. Severe obstructive sleep apnea, on CPAP. Chronic anemia, normochromic, normocytic. Chronic kidney disease, stage 2. Chronic systolic heart failure, ejection fraction 30% to 35% on the last echo, Chronic insomnia. PLAN: Cont O2 Cont Nebs Cont Steroids Cont Atbx Add NPH Increase Glipizide to BID Cont sliding scale Cont CPAP HS Cont other meds
[2019-03-16 16:06] LABS: Reference Lab Name LABCORP
[2019-03-16 16:07] LABS: Ref Lab Test Ordered RVP PCR
[2019-03-16 16:45] LABS: Hemoglobin 11.7 g/dL (14.0-18.0); Platelet Count 199 thou/uL (130-400)
[2019-03-16] MEDS: glipiZIDE 5 MG TAB PO SCH (17:01)
[2019-03-16] MEDS: Atorvastatin Calcium 20 MG TAB PO SCH (21:00)
[2019-03-17] MEDS: guaiFENesin 200 MG TAB PO SCH ×2 (00:08→05:24)
[2019-03-17] MEDS: Insulin Regular 300 UNITS/3 ML VIAL SC PRN ×3 (02:31→21:20)
[2019-03-17] MEDS: Mometasone/Formoterol 120 PUFF INHALER INH SCH ×2 (06:46→18:47)
[2019-03-17] MEDS ORDERED: predniSONE 20 MG TAB PO SCH (08:00)
[2019-03-17] MEDS: metFORMIN 500 MG TAB PO SCH ×2 (08:27→17:17)
[2019-03-17] MEDS: glipiZIDE 5 MG TAB PO SCH ×2 (08:27→17:17)
[2019-03-17] MEDS: Calcium Carbonate + Vit D 1 TAB PO SCH ×2 (08:27→17:17)
[2019-03-17] MEDS: Amlodipine 10 MG TAB PO SCH (08:28)
[2019-03-17] MEDS: Aspirin 81 mg Enteric Coated Tablet PO SCH (08:28)
[2019-03-17] MEDS: Apixaban 5 MG TAB PO SCH (08:28)
[2019-03-17] MEDS: Furosemide 40 MG/4 ML VIAL SLOW IVP SCH (08:29)
[2019-03-17] MEDS: Famotidine 20 MG TAB PO SCH ×2 (08:29→21:02)
[2019-03-17] MEDS: Multivit, Therapeutic 1 TAB PO SCH (08:30)
[2019-03-17] MEDS: guaiFENesin ER 600 MG TAB PO SCH ×2 (08:30→21:02)
[2019-03-17] MEDS: Saccharomyces boulardii 250 MG CAP PO SCH (08:30)
[2019-03-17] MEDS: Lisinopril 20 MG TAB PO SCH (08:30)
[2019-03-17] MEDS: NPH, Human Insulin Isophane 300 UNIT/3 ML VIAL SC SCH (08:31)
[2019-03-17] MEDS: cefTRIAXone\\ROCEPHIN 1 GM in Sodium Chloride 0.9% 100 ML IVPB SCH ×2 (08:32→09:54)
--- NOTE | 2019-03-17 10:34 | PDOC.HOSPP ---
- Subjective Encounter Date: 03/17/19 Encounter Time: 10:32 Subjective: Patient seen and examined for resp failure. SOB improving. Mild prod cough. No new complaints. No overnight events - Objective Vital Signs & Weight: Vital Signs (12 hours) Temp Pulse Resp BP BP BP BP 03/17/19 08:30 155/99 H 03/17/19 08:28 70 155/99 H 03/17/19 08:24 98.0 F 70 155/99 H 03/17/19 08:00 98.0 F 70 22 H 155/99 H 181/76 H 03/17/19 06:42 72 20 03/17/19 03:59 97.3 F L 71 16 126/61 03/17/19 01:30 65 18 03/17/19 00:00 03/16/19 23:38 97.8 F 63 16 129/63 03/16/19 22:38 67 20 BP Pulse Ox 03/17/19 08:30 03/17/19 08:28 03/17/19 08:24 03/17/19 08:00 177/80 H 92 L 03/17/19 06:42 90 L 03/17/19 03:59 89 L 03/17/19 01:30 93 L 03/17/19 00:00 88 L 03/16/19 23:38 88 L 03/16/19 22:38 92 L Weight Weight 177 lb I&O: 03/16/19 03/17/19 03/18/19 06:59 06:59 06:59 Intake Total 480 1270 Output Total 750 1400 Balance -270 -130 Result Diagrams: 03/16/19 16:33 03/16/19 16:33 Additional Labs: Accuchecks 03/17/19 03/17/19 03/16/19 05:18 02:04 20:31 POC Glucose 202 H 254 H 295 H 03/16/19 03/16/19 16:35 11:25 POC Glucose 245 H 335 H Radiology Reviewed by me: Yes (Last CXR - reviewed) EKG Reviewed by me: Yes (Tele SR) Hospitalist ROS - Review of Systems Cardiovascular: denies: chest pain, palpitations, orthopnea, paroxysmal noc. dyspnea, edema, light headedness, other Gastrointestinal: denies: nausea, vomiting, abdominal pain, diarrhea, constipation, melena, hematochezia, other - Medication Medications: Active Medications Generic Name Dose Route Start Last Admin Trade Name Freq PRN Reason Stop Dose Admin Albuterol/Ipratropium 3 ml 03/15/19 18:30 03/17/19 10:26 Duoneb NEB 3 ml [id number] JOSEPHINE Administration Amlodipine Besylate 10 mg 03/16/19 09:00 03/17/19 08:28 Norvasc PO 10 mg DAILY JOSEPHINE Administration Apixaban 5 mg 03/16/19 09:00 03/17/19 08:28 Eliquis PO 5 mg DAILY JOSEPHINE Administration Aspirin 81 mg 03/16/19 09:00 03/17/19 08:28 Ecotrin PO 81 mg DAILY JOSEPHINE Administration Atorvastatin Calcium 20 mg 03/15/19 21:00 03/16/19 21:00 Lipitor PO 20 mg HS JOSEPHINE Administration Calcium Carbonate 1,000 mg 03/15/19 19:12 03/15/19 23:50 Tums PO 1,000 mg Q4H PRN Administration Heartburn or Indigestion Calcium/Vitamin D 1 tab 03/16/19 08:00 03/17/19 08:27 Caltrate 600 + Vit D PO 1 tab BID-WM JOSEPHINE Administration Famotidine 20 mg 03/15/19 21:00 03/17/19 08:29 Pepcid PO 20 mg BID JOSEPHINE Administration Furosemide 40 mg 03/17/19 09:00 03/17/19 08:29 Lasix SLOW IVP 03/18/19 09:01 40 mg DAILY JOSEPHINE Administration Glipizide 5 mg 03/16/19 16:30 03/17/19 08:27 Glucotrol PO 5 mg BID-AC JOSEPHINE Administration Guaifenesin 600 mg 03/15/19 21:00 03/17/19 08:30 Mucinex PO 600 mg Q12HR JOSEPHINE Administration Azithromycin 500 mg/ Sodium 250 mls @ 250 mls/hr 03/16/19 09:00 03/16/19 10: 29 Chloride IVPB 250 mls DAILY JOSEPHINE Administration Ceftriaxone Sodium 1 gm/ 100 mls @ 200 mls/hr 03/16/19 09:00 03/17/19 09:54 Sodium Chloride IVPB 100 mls DAILY JOSEPHINE Administration Insulin Human Regular 0 units 03/15/19 19:11 03/16/19 17:01 Humulin R SC 4 unit .MODERATE SLIDING SC PRN Administration Moderate Correctional Scale Insulin Human Regular 0 units 03/15/19 19:11 03/17/19 02:31 Humulin R SC 3 unit .BEDTIME SLIDING SC PRN Administration Bedtime Correctional Scale Lisinopril 40 mg 03/16/19 09:00 03/17/19 08:30 Zestril PO 40 mg DAILY JOSEPHINE Administration Metformin HCl 500 mg 03/16/19 08:00 03/17/19 08:27 Glucophage PO 500 mg BID-WM JOSEPHINE Administration Metoprolol Succinate 50 mg 03/16/19 09:00 03/17/19 08:30 Toprol Xl PO 50 mg DAILY JOSEPHINE Administration Mometasone Furoate/Formoterol Fumar 2 puff 03/15/19 18:30 03/17/19 06:46 Dulera 200 Mcg/5 Mcg Inhaler INH 2 puff BID-RT JOSEPHINE Administration Multivitamins 1 tab 03/16/19 09:00 03/17/19 08:30 Theragran PO 1 tab DAILY JOSEPHINE Administration Prednisone 40 mg 03/17/19 08:00 03/17/19 08:27 Prednisone PO 03/21/19 08:01 40 mg QAM-WM JOSEPHINE Administration Saccharomyces Boulardii 250 mg 03/16/19 09:00 03/17/19 08:30 Florastor PO 250 mg DAILY JOSEPHINE Administration Sodium Chloride 10 ml 03/15/19 21:00 03/17/19 08:31 Flush - Normal Saline IVF 10 ml Q12HR JOSEPHINE Administration - Exam General Appearance: NAD Heart: RRR, no gallops Respiratory: no rales, rhonchi, wheezes Gastrointestinal: soft, non-distended, normal bowel sounds Extremities: no cyanosis Hosp A/P - Plan -Acute on chronic hypoxic respiratory failure secondary to COPD exacerbation with ? Pneumococcal Pneumonia - improving Cont O2/Nebs/Prednisone and IV Atbx Pulmonary input appreciated -Paroxysmal atrial fibrillation Cont home dose Eliquis/Toprol -Hypertension. Cont Amlodipine -Hyperlipidemia. Cont Statins -Diabetes mellitus type 2. Cont Glipizide 5 mg BID with Metformin Reduce NPH to 10 units QAM -Hyponatremia - 134 Recheck in AM -h/o 50-pack year smoking history. Quit 2 years ago. -Coronary artery disease status post stent placement. Cont ASA/BB/ACEI/Statins -Severe obstructive sleep apnea Cont CPAP HS -Chronic anemia, normochromic, normocytic. -Chronic kidney disease, stage 2. -Chronic systolic heart failure, ejection fraction 30% to 35% on the last echo, Cont fluid rest/ACEI/BB -Chronic insomnia. Cont Trazodone PRN -DC planning - Prob in 1-2 days [facility] eval PT eval
[2019-03-17] MEDS: Azithromycin 500 MG in Sodium Chloride 0.9% 250 ML 250 ML IVPB SCH (11:34)
[2019-03-17] MEDS ORDERED: Lorazepam 2 MG/ML VIAL SLOW IVP SCH (12:30)
--- NOTE | 2019-03-17 12:32 | PDOC.EVN ---
Event Note - Event Note Event Note: Code green called due to resp distess - Transferred to IMCU. STAT labs/CXR/ABG ordered
[2019-03-17 12:43] LABS: Actual Bicarbonate (HCO3a) 21.8 mEq/L (22-28); Base Excess (BEa) -4.4 mEq/L (-2.0 to +3.0); CO2 Tension 43.9 mmHg (35.0-45.0); Calcium, Ionized 1.29 mmol/L (1.12-1.30); Carboxyhemoglobin (COHb) 1.1 gm% (0.0-3.0); Hemoglobin (Hb) 13.1 g/dL (14.0-18.0); O2 Tension (PaO2) 66.7 mmHg (> 70.0); Potassium - ABG Lab 4.63 mmol/L (3.70-5.30); pH, Arterial 7.31 (7.35-7.45)
[2019-03-17 12:46] LABS: Puncture Site RRAD
--- NOTE | 2019-03-17 13:03 | RAD ---
PORTABLE AP CHEST X-RAY: HISTORY: Shortness of breath. COMPARISON: 03/15/2019 FINDINGS: There is increased interstitial opacity seen throughout the right hemithorax, which has increased whe n compared to the prior exam. Minimal patchy density is seen at the right lung base. The left lung is clear without consolidation or pleural fluid. A triple-lead left subclavian cardiac pacemaker device remains in place. The cardiac silhouette is ma gnified by projection and stable in size. IMPRESSION: Increased interstitial markings throughout the right hemithorax, which may be related to an infectiou s process or less likely asymmetric pulmonary edema. Followup to resolution is recommended. POS: [facility]
[2019-03-17 13:15] LABS: Hemoglobin 12.3 g/dL (14.0-18.0); Mean Corpuscular HGB CONC 33.2 g/dL (32.0-36.0); Mean Corpuscular Hemoglobin 30.6 pg (27.0-31.0); Mean Corpuscular Volume 92.2 fL (78.0-98.0); Mean Platelet Volume 9.5 fL (7.4-10.4); Platelet Count 286 thou/uL (130-400); RBC Distribution Width 17.7 % (11.5-14.5); White Blood Cell (WBC) Count 45.5 thou/uL (4.8-10.8)
[2019-03-17 13:29] LABS: Anisocytosis SLIGHT = 6-15 cells (100X) (0-5/hpf); Lymphocytes 1 % (21-51); MDiff Complete? YES; Monocytes 4 % (0-10); Neutrophil 95 % (42-75); Ovalocytes SLIGHT = 2-5 cells (100X) (0-1/hpf); Platelet Morphology Comment Appears Adequate; Polychromasia SLIGHT = 2-3 cells (100X) (0-2/hpf)
[2019-03-17 13:30] LABS: AST (SGOT) 24 U/L (5-34); Anion Gap 17 mmol/L (10-20); Bilirubin, Total 0.9 mg/dL (0.2-1.2); Calc. Creatinine Clearance 65 mL/min (70-130); Calcium 10.1 mg/dL (7.8-10.44); Carbon Dioxide 19 mmol/L (23-31); Chloride 104 mmol/L (98-107); Estimated GFR-MDRD 65; Potassium 5.4 mmol/L (3.5-5.1); Protein, Total 7.1 g/dL (5.8-8.1); Sodium 135 mmol/L (136-145)
[2019-03-17] MEDS ORDERED: methylPREDNISolone Sod Succ 40 MG VIAL IVP SCH (13:45)
[2019-03-17 13:50] LABS: Albumin 4.5 g/dL (3.4-4.8); Globulin 2.6 g/dL (2.4-3.5)
[2019-03-17 13:53] LABS: Glucose 177 mg/dL (83-110)
[2019-03-17 13:56] LABS: Alkaline Phosphatase 81 U/L (40-110)
[2019-03-17 13:57] LABS: BUN (Urea Nitrogen) 27 mg/dL (8.4-25.7)
[2019-03-17 13:58] LABS: Magnesium 2.3 mg/dL (1.6-2.6)
[2019-03-17 13:59] LABS: ALT (SGPT) 15 U/L (8-55)
[2019-03-17 14:13] LABS: Troponin I 0.026 ng/mL (< 0.028)
[2019-03-17] MEDS: methylPREDNISolone Sod Succ 40 MG VIAL IVP SCH ×2 (14:56→21:03)
[2019-03-17] MEDS: Cefepime 1 GM in Sodium Chloride 0.9% 100 ML IVPB SCH (14:56)
[2019-03-17 16:47] LABS: Anion Gap 15 mmol/L (10-20); BUN (Urea Nitrogen) 33 mg/dL (8.4-25.7); Calc. Creatinine Clearance 60 mL/min (70-130); Calcium 9.6 mg/dL (7.8-10.44); Carbon Dioxide 22 mmol/L (23-31); Chloride 106 mmol/L (98-107); Estimated GFR-MDRD 59; Glucose 202 mg/dL (83-110); Potassium 4.7 mmol/L (3.5-5.1); Sodium 138 mmol/L (136-145)
[2019-03-17] MEDS: Atorvastatin Calcium 20 MG TAB PO SCH (21:02)
--- NOTE | 2019-03-17 22:48 | HP ---
SERVICE: Pulmonary Medicine. INTERVAL HISTORY: The patient is doing okay from a respiratory standpoint. This morning, he had a slightly increased work of breathing. I asked if he want me to readjust him in bed, but he said no. He was sitting a little awkward. Either way, he indicated he was breathing comfortably. He was not having much in the way of cough. He did not have any fevers or chills, or overnight events. Later in the afternoon, he became increasingly short of breath, diaphoretic and anxious. He was subsequently moved to the [facility]. He was started on some noninvasive ventilation. Otherwise, there has been no change to his condition. He has settled down comfortably. PHYSICAL EXAMINATION: VITAL SIGNS: Afebrile, pulse 64, blood pressure 174/81, respirations 25, saturation 93%, currently on BiPAP with 40% FiO2. GENERAL: The patient is awake and alert. No apparent distress. HEENT: Normocephalic and atraumatic. Sclerae are white. Conjunctivae are pink. Oral mucosa is moist without lesions. LUNGS: Decent air entry with no prolonged expiratory phase or wheezing present. HEART: Normal rate. Regular. ABDOMEN: Soft, nontender, and nondistended. Bowel sounds are positive. MUSCULOSKELETAL: No cyanosis or clubbing. No pitting in the bilateral lower extremities. NEUROLOGIC: Grossly nonfocal. LABORATORY DATA: WBC 45.5, hemoglobin 12.3, and platelets 286,000. PH 7.31, pCO2 of 44, pO2 of 66, corresponding to a saturation 91% while wearing home CPAP with 8 L bled in. Potassium 5.4 which is gently up trending. Sodium 135. Creatinine 1.11, downtrending. Liver function studies are otherwise unremarkable. Troponin is 0.026 which remains negative. IMAGING DATA: Chest x-ray demonstrates increased interstitial markings throughout the right lung compared to the left. Pulmonary vascular congestion, and Olive B lines are otherwise present. ASSESSMENT: 1. Acute on chronic hypoxic respiratory failure. 2. Chronic obstructive pulmonary disease with acute exacerbation. 3. Obstructive sleep apnea. 4. Acute on chronic systolic heart failure. 5. Viral prodrome. DISCUSSION AND PLAN: We will put the patient on BiPAP. We will wean away the oxygen as tolerated. He has elevated blood pressure during this event. We will continue diuresing him down to euvolemia to get some volume off him. The respiratory virus panel could not be performed as we are out of the swabs. Critical Care will continue to follow during this hospital stay. Job ID: [id number] MTDWillian
[2019-03-18] MEDS: methylPREDNISolone Sod Succ 40 MG VIAL IVP SCH ×4 (03:03→20:42)
[2019-03-18] MEDS: Cefepime 1 GM in Sodium Chloride 0.9% 100 ML IVPB SCH ×2 (03:03→13:47)
[2019-03-18 03:43] LABS: #Monocytes 0.8 thou/uL (0.11-0.59); #Neutrophils 17.4 thou/uL (1.40-6.50); %Basophils 0.1 % (0.0-1.0); %Eosinophils 0.2 % (0.0-10.0); %Monocytes 4.2 % (0.0-10.0); %Neutrophils 90.6 % (42.0-75.0); Mean Corpuscular HGB CONC 32.5 g/dL (32.0-36.0); Mean Corpuscular Hemoglobin 29.4 pg (27.0-31.0); Mean Corpuscular Volume 90.5 fL (78.0-98.0); Mean Platelet Volume 10.2 fL (7.4-10.4); Platelet Count 179 thou/uL (130-400); RBC Distribution Width 17.4 % (11.5-14.5); Red Blood Cell (RBC) Count 3.74 mill/uL (4.70-6.10); White Blood Cell (WBC) Count 19.2 thou/uL (4.8-10.8)
[2019-03-18 03:53] LABS: Anion Gap 18 mmol/L (10-20); BUN (Urea Nitrogen) 42 mg/dL (8.4-25.7); Calc. Creatinine Clearance 72 mL/min (70-130); Calcium 9.7 mg/dL (7.8-10.44); Carbon Dioxide 19 mmol/L (23-31); Chloride 105 mmol/L (98-107); Estimated GFR-MDRD 73; Glucose 249 mg/dL (83-110); Potassium 4.6 mmol/L (3.5-5.1); Sodium 137 mmol/L (136-145)
[2019-03-18] MEDS: Mometasone/Formoterol 120 PUFF INHALER INH SCH ×3 (06:27→19:26)
[2019-03-18] MEDS: Insulin Regular 300 UNITS/3 ML VIAL SC PRN ×4 (06:28→22:21)
[2019-03-18] MEDS ORDERED: NPH, Human Insulin Isophane 300 UNIT/3 ML VIAL SC SCH (08:00)
[2019-03-18] MEDS: glipiZIDE 5 MG TAB PO SCH ×2 (08:20→16:36)
[2019-03-18] MEDS: metFORMIN 500 MG TAB PO SCH ×2 (08:20→16:36)
[2019-03-18] MEDS: Amlodipine 10 MG TAB PO SCH (10:21)
[2019-03-18] MEDS: Furosemide 40 MG/4 ML VIAL SLOW IVP SCH (10:21)
[2019-03-18] MEDS: Aspirin 81 mg Enteric Coated Tablet PO SCH (10:21)
[2019-03-18] MEDS: Lisinopril 20 MG TAB PO SCH (10:22)
[2019-03-18] MEDS: Apixaban 5 MG TAB PO SCH (10:22)
[2019-03-18] MEDS: Famotidine 20 MG TAB PO SCH ×2 (10:22→20:41)
[2019-03-18] MEDS: Multivit, Therapeutic 1 TAB PO SCH (10:22)
[2019-03-18] MEDS: Calcium Carbonate + Vit D 1 TAB PO SCH ×2 (10:23→16:36)
[2019-03-18] MEDS: guaiFENesin ER 600 MG TAB PO SCH ×2 (10:23→20:41)
[2019-03-18] MEDS: Saccharomyces boulardii 250 MG CAP PO SCH (10:23)
[2019-03-18] MEDS: NPH, Human Insulin Isophane 300 UNIT/3 ML VIAL SC SCH (10:27)
[2019-03-18] MEDS: Azithromycin 500 MG in Sodium Chloride 0.9% 250 ML 250 ML IVPB SCH (10:28)
[2019-03-18] MEDS ORDERED: Magnesium 2 GM/50 ML 2 GM in Premix Bag 1 BAG IVPB SCH (11:00)
--- NOTE | 2019-03-18 11:04 | PRG ---
DATE OF SERVICE: 03/18/2019 SUBJECTIVE: This morning, he said he is better. He is less short of breath. He was on BiPAP for a long period of time. OBJECTIVE: VITAL SIGNS: Temperature 97, pulse 70, blood pressure 130/71, and respirations 18. CHEST: Diffuse wheezing. CARDIAC: Normal S1 and S2. No gallops. ABDOMEN: No masses. LABORATORY DATA: Unremarkable. Glucose is elevated. His chest x-ray does show any pneumonia. ASSESSMENT: 1. Chronic obstructive pulmonary disease exacerbation. 2. Bronchitis. 3. Leukocytosis. PLAN: I have added magnesium to his present treatment. Otherwise, continue supportive care, PT. We will follow. Job ID: [id number]
[2019-03-18] MEDS: Calcium Carbonate 500 MG ChewTAB PO PRN (13:50)
--- NOTE | 2019-03-18 17:08 | PDOC.HOSPP ---
- Subjective Encounter Date: 03/18/19 Encounter Time: 09:20 Subjective: Pt seen for followup re: acute on chronic hypoxic respiratory failure. Feels better today. - Objective Vital Signs & Weight: Vital Signs (12 hours) Temp Pulse Pulse Resp BP BP BP 03/18/19 15:50 97.1 F L 03/18/19 14:22 64 22 H 03/18/19 14:21 61 22 H 03/18/19 12:00 03/18/19 11:26 99.6 F 03/18/19 10:55 68 21 H 03/18/19 10:46 67 160/73 H 198/71 H 03/18/19 10:22 133/71 03/18/19 10:21 70 133/71 03/18/19 08:00 03/18/19 07:14 97.4 F L 03/18/19 06:26 70 22 H Pulse Ox Pulse Ox Pulse Ox 03/18/19 15:50 03/18/19 14:22 97 03/18/19 14:21 96 03/18/19 12:00 98 03/18/19 11:26 03/18/19 10:55 97 03/18/19 10:46 95 94 L 03/18/19 10:22 03/18/19 10:21 03/18/19 08:00 98 03/18/19 07:14 03/18/19 06:26 99 Weight Weight 170 lb 9.6 oz Most Recent Monitor Data Heart Rate from ECG 64 NIBP 161/83 NIBP BP-Mean 109 Respiration from ECG 21 SpO2 96 I&O: 03/17/19 03/18/19 03/19/19 06:59 06:59 06:59 Intake Total 1270 1640 Output Total 1400 1790 Balance -130 -150 Result Diagrams: 03/18/19 03:27 03/18/19 03:27 Additional Labs: Accuchecks 03/18/19 03/18/19 03/18/19 16:38 10:44 06:16 POC Glucose 244 H 259 H 258 H 03/17/19 03/17/19 03/17/19 20:56 17:19 17:14 POC Glucose 243 H 224 H 219 H Labs and MARs reviewed by me EKG Reviewed by me: Yes (Tele: NSR) Hospitalist ROS - Review of Systems Respiratory: reports: cough, dry, SOB with excertion. denies: shortness of breath, hemoptysis, pleuritic pain, sputum, wheezing Cardiovascular: denies: chest pain, palpitations, orthopnea, paroxysmal noc. dyspnea, edema, light headedness Gastrointestinal: denies: nausea, vomiting, abdominal pain, diarrhea, constipation, melena, hematochezia - Medication Medications: Active Medications Generic Name Dose Route Start Last Admin Trade Name Freq PRN Reason Stop Dose Admin Albuterol/Ipratropium 3 ml 03/15/19 18:30 03/18/19 14:21 Duoneb NEB 3 ml [id number] JOSEPHINE Administration Albuterol/Ipratropium 3 ml 03/15/19 14:37 03/17/19 12:45 Duoneb NEB 3 ml Q2H PRN Administration SOB &/or Wheezing Amlodipine Besylate 10 mg 03/16/19 09:00 03/18/19 10:21 Norvasc PO 10 mg DAILY JOSEPHINE Administration Apixaban 5 mg 03/16/19 09:00 03/18/19 10:22 Eliquis PO 5 mg DAILY JOSEPHINE Administration Aspirin 81 mg 03/16/19 09:00 03/18/19 10:21 Ecotrin PO 81 mg DAILY JOSEPHINE Administration Atorvastatin Calcium 20 mg 03/15/19 21:00 03/17/19 21:02 Lipitor PO 20 mg HS JOSEPHINE Administration Calcium Carbonate 1,000 mg 03/15/19 19:12 03/18/19 13:50 Tums PO 1,000 mg Q4H PRN Administration Heartburn or Indigestion Calcium/Vitamin D 1 tab 03/16/19 08:00 03/18/19 16:36 Caltrate 600 + Vit D PO 1 tab BID-WM JOSEPHINE Administration Famotidine 20 mg 03/15/19 21:00 03/18/19 10:22 Pepcid PO 20 mg BID JOSEPHINE Administration Glipizide 5 mg 03/16/19 16:30 03/18/19 16:36 Glucotrol PO 5 mg BID-AC JOSEPHINE Administration Guaifenesin 600 mg 03/15/19 21:00 03/18/19 10:23 Mucinex PO 600 mg Q12HR JOSEPHINE Administration Azithromycin 500 mg/ Sodium 250 mls @ 250 mls/hr 03/16/19 09:00 03/18/19 10: 28 Chloride IVPB 250 mls DAILY JOSEPHINE Administration Cefepime HCl 1 gm/ Sodium 100 mls @ 200 mls/hr 03/17/19 14:00 03/18/19 13:47 Chloride IVPB 100 mls 0200,1400 JOSEPHINE Administration Insulin Human NPH 10 unit 03/18/19 08:00 03/18/19 10:27 Humulin N SC 10 unit QAM-WM JOSEPHINE Administration Insulin Human Regular 0 units 03/15/19 19:11 03/17/19 21:20 Humulin R SC 2 unit .BEDTIME SLIDING SC PRN Administration Bedtime Correctional Scale Insulin Human Regular 0 units 03/18/19 12:07 03/18/19 16:36 Humulin R SC 6 unit .AGGRESSIVE SLIDING PRN Administration AGGRESSIVE SLIDING SCALE Protocol Lisinopril 40 mg 03/16/19 09:00 03/18/19 10:22 Zestril PO 40 mg DAILY JOSEPHINE Administration Metformin HCl 500 mg 03/16/19 08:00 03/18/19 16:36 Glucophage PO 500 mg BID-WM JOSEPHINE Administration Methylprednisolone Sodium Succinate 40 mg 03/17/19 14:00 03/18/19 13:51 Solu-Medrol IVP 40 mg 0200,0800,1400,2000 JOSEPHINE Administration Metoprolol Succinate 50 mg 03/16/19 09:00 03/18/19 10:22 Toprol Xl PO 50 mg DAILY JOSEPHINE Administration Mometasone Furoate/Formoterol Fumar 2 puff 03/15/19 18:30 03/18/19 06:27 Dulera 200 Mcg/5 Mcg Inhaler INH 2 puff BID-RT JOSEPHINE Administration Multivitamins 1 tab 03/16/19 09:00 03/18/19 10:22 Theragran PO 1 tab DAILY JOSEPHINE Administration Saccharomyces Boulardii 250 mg 03/16/19 09:00 03/18/19 10:23 Florastor PO 250 mg DAILY JOSEPHINE Administration Sodium Chloride 10 ml 03/15/19 21:00 03/18/19 10:28 Flush - Normal Saline IVF 10 ml Q12HR JOSEPHINE Administration - Exam General Appearance: NAD Eye: anicteric sclera ENT: moist mucosa Heart: RRR Respiratory: normal chest expansion, wheezes Gastrointestinal: soft, non-tender Musculoskeletal: no muscle wasting Psychiatric: normal affect, normal behavior Hosp A/P - Plan Hosp A/P - Assessment: -Acute on chronic hypoxic respiratory failure -COPD exacerbation -Paroxysmal atrial fibrillation -Hypertension. -Hyperlipidemia. -Diabetes mellitus type 2. -h/o Coronary artery disease status post stent placement. Cont ASA/BB/ACEI/Statins -Severe obstructive sleep apnea -Chronic kidney disease, stage 2. -Chronic systolic heart failure, ejection fraction 30% to 35% on the last echo, - Plan: Cont home dose Eliquis/Toprol Cont O2/Nebs/Prednisone and IV Atbx Continue statin HTN controlled Continue accuchecks, insulin sliding scale Cont Glipizide 5 mg BID with Metformin Hyponatremia resolved. C eval PT eval Cont fluid rest/ACEI/BB
[2019-03-18] MEDS: Ondansetron PF 4 MG/2 ML Vial IVP PRN ×2 (18:42→23:09)
[2019-03-18] MEDS: Atorvastatin Calcium 20 MG TAB PO SCH (20:41)
[2019-03-19] MEDS: Ondansetron PF 4 MG/2 ML Vial IVP PRN ×3 (02:59→20:17)
[2019-03-19] MEDS: Cefepime 1 GM in Sodium Chloride 0.9% 100 ML IVPB SCH (03:02)
[2019-03-19] MEDS: methylPREDNISolone Sod Succ 40 MG VIAL IVP SCH ×4 (03:02→20:17)
[2019-03-19] MEDS: Insulin Regular 300 UNITS/3 ML VIAL SC PRN ×3 (06:40→21:23)
[2019-03-19] MEDS: Mometasone/Formoterol 120 PUFF INHALER INH SCH ×4 (07:13→18:27)
[2019-03-19] MEDS: glipiZIDE 5 MG TAB PO SCH ×2 (07:33→16:57)
[2019-03-19] MEDS: Calcium Carbonate + Vit D 1 TAB PO SCH ×2 (09:06→16:57)
[2019-03-19] MEDS: Aspirin 81 mg Enteric Coated Tablet PO SCH (09:06)
[2019-03-19] MEDS: Saccharomyces boulardii 250 MG CAP PO SCH (09:06)
[2019-03-19] MEDS: Famotidine 20 MG TAB PO SCH ×2 (09:07→20:17)
[2019-03-19] MEDS: metFORMIN 500 MG TAB PO SCH ×2 (09:07→16:58)
[2019-03-19] MEDS: NPH, Human Insulin Isophane 300 UNIT/3 ML VIAL SC SCH (09:07)
[2019-03-19] MEDS: Lisinopril 20 MG TAB PO SCH (09:08)
[2019-03-19] MEDS: Amlodipine 10 MG TAB PO SCH (09:08)
[2019-03-19] MEDS: guaiFENesin ER 600 MG TAB PO SCH ×2 (09:08→20:17)
[2019-03-19] MEDS: Apixaban 5 MG TAB PO SCH (09:09)
[2019-03-19] MEDS: Multivit, Therapeutic 1 TAB PO SCH (09:09)
[2019-03-19] MEDS: Azithromycin 500 MG in Sodium Chloride 0.9% 250 ML 250 ML IVPB SCH (09:09)
--- NOTE | 2019-03-19 11:51 | PRG ---
DATE OF SERVICE: 03/19/2019 SUBJECTIVE: This morning, he is doing better. He is on his BiPAP. OBJECTIVE: VITAL SIGNS: Temperature 98, pulse 73, saturations are 98%, blood pressure 146/90. LUNGS: Less short of breath. CHEST: No wheezing or crackles. CARDIAC: Normal S1 and S2. No gallops. IMPRESSION: 1. Chronic obstructive pulmonary disease. 2. Sleep apnea. PLAN: His cultures are negative. I will deescalate his antibiotics. Continue PT, supportive care. Job ID: [id number]
--- NOTE | 2019-03-19 13:33 | PDOC.HOSPP ---
- Subjective Encounter Date: 03/19/19 Encounter Time: 10:40 Subjective: Pt seen for followup re: acute on chronic respiratory failure. Feels better. Slept well. - Objective Vital Signs & Weight: Vital Signs (12 hours) Temp Pulse Resp BP Pulse Ox 03/19/19 10:29 73 21 H 89 L 03/19/19 10:27 98.2 F 03/19/19 09:08 66 156/79 H 03/19/19 07:40 97 03/19/19 07:14 97.6 F 66 20 97 03/19/19 07:13 76 20 96 03/19/19 04:00 97.7 F 03/19/19 02:37 63 16 Weight Weight 170 lb 9.6 oz Most Recent Monitor Data Heart Rate from ECG 63 NIBP 183/121 NIBP BP-Mean 141 Respiration from ECG 14 SpO2 95 I&O: 03/18/19 03/19/19 03/20/19 06:59 06:59 06:59 Intake Total 1640 2260 Output Total 1790 1750 Balance -150 510 Result Diagrams: 03/18/19 03:27 03/18/19 03:27 Additional Labs: Accuchecks 03/19/19 03/19/19 03/18/19 10:11 05:47 20:57 POC Glucose 277 H 249 H 261 H 03/18/19 16:38 POC Glucose 244 H Labs and MARs reviewed by me EKG Reviewed by me: Yes (Tele: NSR) Hospitalist ROS - Review of Systems Respiratory: reports: cough, dry, SOB with excertion. denies: shortness of breath, hemoptysis, pleuritic pain, sputum, wheezing Cardiovascular: denies: chest pain, palpitations, orthopnea, paroxysmal noc. dyspnea, edema, light headedness - Medication Medications: Active Medications Generic Name Dose Route Start Last Admin Trade Name Freq PRN Reason Stop Dose Admin Albuterol/Ipratropium 3 ml 03/15/19 18:30 03/19/19 10:29 Duoneb NEB 3 ml [id number] JOSEPHINE Administration Albuterol/Ipratropium 3 ml 03/15/19 14:37 03/17/19 12:45 Duoneb NEB 3 ml Q2H PRN Administration SOB &/or Wheezing Amlodipine Besylate 10 mg 03/16/19 09:00 03/19/19 09:08 Norvasc PO 10 mg DAILY JOSEPHINE Administration Apixaban 5 mg 03/16/19 09:00 03/19/19 09:09 Eliquis PO 5 mg DAILY JOSEPHINE Administration Aspirin 81 mg 03/16/19 09:00 03/19/19 09:06 Ecotrin PO 81 mg DAILY JOSEPHINE Administration Atorvastatin Calcium 20 mg 03/15/19 21:00 03/18/19 20:41 Lipitor PO 20 mg HS JOSEPHINE Administration Calcium Carbonate 1,000 mg 03/15/19 19:12 03/18/19 13:50 Tums PO 1,000 mg Q4H PRN Administration Heartburn or Indigestion Calcium/Vitamin D 1 tab 03/16/19 08:00 03/19/19 09:06 Caltrate 600 + Vit D PO 1 tab BID-WM JOSEPHINE Administration Famotidine 20 mg 03/15/19 21:00 03/19/19 09:07 Pepcid PO 20 mg BID JOSEPHINE Administration Glipizide 5 mg 03/16/19 16:30 03/19/19 07:33 Glucotrol PO 5 mg BID-AC JOSEPHINE Administration Guaifenesin 600 mg 03/15/19 21:00 03/19/19 09:08 Mucinex PO 600 mg Q12HR JOSEPHINE Administration Azithromycin 500 mg/ Sodium 250 mls @ 250 mls/hr 03/16/19 09:00 03/19/19 09: 09 Chloride IVPB 250 mls DAILY JOSEPHINE Administration Cefepime HCl 1 gm/ Sodium 100 mls @ 200 mls/hr 03/17/19 14:00 03/19/19 03:02 Chloride IVPB 100 mls 0200,1400 JOSEPHINE Administration Insulin Human NPH 10 unit 03/18/19 08:00 03/19/19 09:07 Humulin N SC 10 unit QAM- JOSEPHINE Administration Insulin Human Regular 0 units 03/15/19 19:11 03/18/19 22:21 Humulin R SC 3 unit .BEDTIME SLIDING SC PRN Administration Bedtime Correctional Scale Insulin Human Regular 0 units 03/18/19 12:07 03/19/19 12:25 Humulin R SC 9 unit .AGGRESSIVE SLIDING PRN Administration AGGRESSIVE SLIDING SCALE Protocol Lisinopril 40 mg 03/16/19 09:00 03/19/19 09:08 Zestril PO 40 mg DAILY JOSEPHINE Administration Metformin HCl 500 mg 03/16/19 08:00 03/19/19 09:07 Glucophage PO 500 mg BID-WM JOSEPHINE Administration Methylprednisolone Sodium Succinate 40 mg 03/17/19 14:00 03/19/19 09:07 Solu-Medrol IVP 40 mg 0200,0800,1400,2000 JOSEPHINE Administration Metoprolol Succinate 50 mg 03/16/19 09:00 03/19/19 09:08 Toprol Xl PO 50 mg DAILY JOSEPHINE Administration Mometasone Furoate/Formoterol Fumar 2 puff 03/15/19 18:30 03/19/19 07:13 Dulera 200 Mcg/5 Mcg Inhaler INH 2 puff BID-RT JOSEPHINE Administration Mometasone Furoate/Formoterol Fumar 2 puff 03/18/19 18:30 03/19/19 07:13 Dulera 200 Mcg/5 Mcg Inhaler INH Not Given BID-RT JOSEPHINE Multivitamins 1 tab 03/16/19 09:00 03/19/19 09:09 Theragran PO 1 tab DAILY JOSEPHINE Administration Ondansetron HCl 4 mg 03/18/19 16:38 03/19/19 12:25 Zofran IVP 4 mg Q4H PRN Administration Nausea/Vomiting Saccharomyces Boulardii 250 mg 03/16/19 09:00 03/19/19 09:06 Florastor PO 250 mg DAILY JOSEPHINE Administration Sodium Chloride 10 ml 03/15/19 21:00 03/19/19 09:09 Flush - Normal Saline IVF 10 ml Q12HR JOSEPHINE Administration - Exam General Appearance: NAD Eye: anicteric sclera ENT: moist mucosa Neck: supple Heart: RRR Respiratory: wheezes Gastrointestinal: soft, non-tender Extremities: no cyanosis Skin: no rashes Musculoskeletal: normal tone, normal strength Hosp A/P - Plan continue antibiotics, respiratory therapy, out of bed/ambulate Hosp A/P - Assessment: -Acute on chronic hypoxic respiratory failure -COPD exacerbation -Paroxysmal atrial fibrillation -Hypertension. -Hyperlipidemia. -Diabetes mellitus type 2. -h/o Coronary artery disease status post stent placement. Cont ASA/BB/ACEI/Statins -Severe obstructive sleep apnea -Chronic kidney disease, stage 2. -Chronic systolic heart failure NYHA Class 2 - Plan: Pt still using BiPAP. Switch antibitoics to cefdinir. Cont Eliquis/Toprol for PAF Cont O2/Nebs/Prednisone Continue statin HTN controlled Continue accuchecks, insulin sliding scale Cont Glipizide 5 mg BID with Metformin PT eval Cont fluid rest/ACEI/BB
[2019-03-19 14:05] LABS: Hemoglobin 11.8 g/dL (14.0-18.0); Mean Corpuscular HGB CONC 31.7 g/dL (32.0-36.0); Mean Corpuscular Hemoglobin 29.5 pg (27.0-31.0); Mean Corpuscular Volume 92.9 fL (78.0-98.0); Platelet Count 204 thou/uL (130-400); RBC Distribution Width 17.5 % (11.5-14.5); Red Blood Cell (RBC) Count 4.01 mill/uL (4.70-6.10); White Blood Cell (WBC) Count 23.5 thou/uL (4.8-10.8)
[2019-03-19 14:24] LABS: Anion Gap 14 mmol/L (10-20); BUN (Urea Nitrogen) 41 mg/dL (8.4-25.7); Calc. Creatinine Clearance 71 mL/min (70-130); Carbon Dioxide 26 mmol/L (23-31); Chloride 103 mmol/L (98-107); Estimated GFR-MDRD 75; Glucose 242 mg/dL (83-110); Potassium 4.3 mmol/L (3.5-5.1); Sodium 139 mmol/L (136-145)
[2019-03-19 14:28] LABS: Anisocytosis SLIGHT = 6-15 cells (100X) (0-5/hpf); Elliptocytes SLIGHT = 2-5 cells (100X) (0-1/hpf); Large Platelets SLIGHT; Lymphocytes 3 % (21-51); MDiff Complete? YES; Neutrophil 97 % (42-75); Ovalocytes SLIGHT = 2-5 cells (100X) (0-1/hpf); Platelet Morphology Comment Appears Adequate; Polychromasia SLIGHT = 2-3 cells (100X) (0-2/hpf)
[2019-03-19] MEDS ORDERED: Promethazine HCl 25 MG/ML VIAL IM/IV PRN (19:05)
[2019-03-19] MEDS: Cefdinir 300 MG CAP PO SCH (20:16)
[2019-03-19] MEDS: Atorvastatin Calcium 20 MG TAB PO SCH (20:17)
[2019-03-20] MEDS: methylPREDNISolone Sod Succ 40 MG VIAL IVP SCH ×2 (02:27→11:37)
[2019-03-20 03:48] LABS: Anion Gap 12 mmol/L (10-20); BUN (Urea Nitrogen) 43 mg/dL (8.4-25.7); Calc. Creatinine Clearance 76 mL/min (70-130); Calcium 9.4 mg/dL (7.8-10.44); Carbon Dioxide 26 mmol/L (23-31); Chloride 105 mmol/L (98-107); Estimated GFR-MDRD 81; Glucose 276 mg/dL (83-110); Sodium 138 mmol/L (136-145)
[2019-03-20 04:00] LABS: Hypochromia SLIGHT = 6-15 cells (100X) (0-5/hpf); Lymphocytes 6 % (21-51); MDiff Complete? YES; Mean Corpuscular HGB CONC 32.7 g/dL (32.0-36.0); Mean Corpuscular Volume 91.8 fL (78.0-98.0); Mean Platelet Volume 10.2 fL (7.4-10.4); Monocytes 9 % (0-10); Neutrophil 85 % (42-75); Platelet Count 179 thou/uL (130-400); Platelet Morphology Comment Appears Adequate; RBC Distribution Width 17.1 % (11.5-14.5); Red Blood Cell (RBC) Count 3.34 mill/uL (4.70-6.10); White Blood Cell (WBC) Count 16.5 thou/uL (4.8-10.8)
[2019-03-20] MEDS: Insulin Regular 300 UNITS/3 ML VIAL SC PRN ×4 (06:22→22:20)
[2019-03-20] MEDS: Mometasone/Formoterol 120 PUFF INHALER INH SCH ×5 (07:08→18:56)
[2019-03-20] MEDS: NPH, Human Insulin Isophane 300 UNIT/3 ML VIAL SC SCH (08:26)
[2019-03-20] MEDS: glipiZIDE 5 MG TAB PO SCH ×2 (08:27→16:35)
[2019-03-20] MEDS: Lisinopril 20 MG TAB PO SCH (08:27)
[2019-03-20] MEDS: guaiFENesin ER 600 MG TAB PO SCH ×2 (08:28→21:11)
[2019-03-20] MEDS: metFORMIN 500 MG TAB PO SCH ×2 (08:28→16:36)
[2019-03-20] MEDS: Aspirin 81 mg Enteric Coated Tablet PO SCH (08:28)
[2019-03-20] MEDS: Famotidine 20 MG TAB PO SCH ×2 (08:28→21:11)
[2019-03-20] MEDS: Saccharomyces boulardii 250 MG CAP PO SCH (08:28)
[2019-03-20] MEDS: Apixaban 5 MG TAB PO SCH (08:28)
[2019-03-20] MEDS: Calcium Carbonate + Vit D 1 TAB PO SCH ×2 (08:28→16:35)
[2019-03-20] MEDS: Cefdinir 300 MG CAP PO SCH ×2 (08:28→21:11)
[2019-03-20] MEDS: Multivit, Therapeutic 1 TAB PO SCH (08:28)
[2019-03-20] MEDS: Amlodipine 10 MG TAB PO SCH (08:28)
--- NOTE | 2019-03-20 14:03 | PRG ---
DATE OF SERVICE: 03/20/2019 SERVICE: Pulmonary Medicine. INTERVAL HISTORY: The patient is doing better from a respiratory standpoint. He has not had any significant respiratory events in the last 24 hours. Denies any current fevers, chills, nausea, or vomiting. Otherwise, he is returning to his usual state of health. He is not bringing up any phlegm. He has a cough that happens from time to time. PHYSICAL EXAMINATION: VITAL SIGNS: Afebrile, pulse 70, blood pressure 156/79, respirations 25, and saturation 95% currently on 4 L nasal cannula. HEENT: Normocephalic and atraumatic. Sclerae white. Conjunctivae pink. Oral mucosa is moist without lesions. LUNGS: Decent air entry. There are some crackles present. No prolonged expiratory phase or wheezing is appreciated. HEART: Normal rate. Regular. ABDOMEN: Soft, nontender, and nondistended. Bowel sounds are positive. MUSCULOSKELETAL: No cyanosis or clubbing. There is no pitting in the bilateral lower extremities. NEUROLOGIC: Grossly nonfocal. LABORATORY DATA: WBC is improved to 16.5, hemoglobin 10.0, platelets 179,000. Neutrophil count has improved to 85%. Basic metabolic profile is completely unremarkable. Urinalysis is negative. ASSESSMENT: 1. Acute on chronic hypoxic respiratory failure. 2. Chronic obstructive pulmonary disease with acute exacerbation. 3. Obstructive sleep apnea. 4. Acute on chronic systolic heart failure, euvolemic. 5. Viral prodrome. DISCUSSION AND PLAN: The patient is doing fine from a respiratory standpoint. At this point, he is stable for transition out of the ICU to the medical unit. We will continue our antibiotics, nebulized medications, and steroids. We will cautiously increase activity as tolerated. Pulmonary will follow. Job ID: [id number]
--- NOTE | 2019-03-20 18:13 | PDOC.HOSPP ---
- Subjective Encounter Date: 03/20/19 Encounter Time: 10:40 Subjective: Pt seen for followup re: acute on chronic respiratory failure. States he feels better. SOBOE is better. - Objective Vital Signs & Weight: Vital Signs (12 hours) Temp Pulse Resp Pulse Ox 03/20/19 15:48 98.5 F 03/20/19 14:28 66 20 98 03/20/19 11:13 98.0 F 03/20/19 10:25 70 25 H 92 L 03/20/19 08:00 97 03/20/19 07:08 66 19 95 03/20/19 07:03 98.2 F Weight Weight 170 lb 9.6 oz Most Recent Monitor Data Heart Rate from ECG 63 NIBP 135/62 NIBP BP-Mean 86 Respiration from ECG 21 SpO2 98 I&O: 03/19/19 03/20/19 03/21/19 06:59 06:59 06:59 Intake Total 2260 1340 Output Total 1750 1700 200 Balance 510 -360 -200 Result Diagrams: 03/20/19 02:59 03/20/19 02:59 Additional Labs: Accuchecks 03/20/19 03/20/19 03/20/19 16:38 10:45 05:54 POC Glucose 198 H 218 H 287 H 03/19/19 20:11 POC Glucose 262 H Labs and MARs reviewed by me EKG Reviewed by me: Yes (Tele; NSR) Hospitalist ROS - Review of Systems Respiratory: reports: cough, dry, SOB with excertion. denies: shortness of breath, hemoptysis, pleuritic pain, sputum, wheezing Cardiovascular: denies: chest pain, palpitations, orthopnea, paroxysmal noc. dyspnea, edema, light headedness - Medication Medications: Active Medications Generic Name Dose Route Start Last Admin Trade Name Freq PRN Reason Stop Dose Admin Albuterol/Ipratropium 3 ml 03/15/19 18:30 03/20/19 14:28 Duoneb NEB 3 ml [id number] JOSEPHINE Administration Albuterol/Ipratropium 3 ml 03/15/19 14:37 03/17/19 12:45 Duoneb NEB 3 ml Q2H PRN Administration SOB &/or Wheezing Amlodipine Besylate 10 mg 03/16/19 09:00 03/20/19 08:28 Norvasc PO 10 mg DAILY JOSEPHINE Administration Apixaban 5 mg 03/16/19 09:00 03/20/19 08:28 Eliquis PO 5 mg DAILY JOSEPHINE Administration Aspirin 81 mg 03/16/19 09:00 03/20/19 08:28 Ecotrin PO 81 mg DAILY JOSEPHINE Administration Atorvastatin Calcium 20 mg 03/15/19 21:00 03/19/19 20:17 Lipitor PO 20 mg HS JOSEPHINE Administration Calcium Carbonate 1,000 mg 03/15/19 19:12 03/18/19 13:50 Tums PO 1,000 mg Q4H PRN Administration Heartburn or Indigestion Calcium/Vitamin D 1 tab 03/16/19 08:00 03/20/19 16:35 Caltrate 600 + Vit D PO 1 tab BID-WM [facility] Administration Cefdinir 300 mg 03/19/19 21:00 03/20/19 08:28 Omnicef PO 300 mg BID JOSEPHINE Administration Famotidine 20 mg 03/15/19 21:00 03/20/19 08:28 Pepcid PO 20 mg BID JOSEPHINE Administration Glipizide 5 mg 03/16/19 16:30 03/20/19 16:35 Glucotrol PO 5 mg BID-AC [facility] Administration Guaifenesin 600 mg 03/15/19 21:00 03/20/19 08:28 Mucinex PO 600 mg Q12HR JOSEPHINE Administration Insulin Human NPH 10 unit 03/18/19 08:00 03/20/19 08:26 Humulin N SC 10 unit QAM-WM [facility] Administration Insulin Human Regular 0 units 03/15/19 19:11 03/19/19 21:23 Humulin R SC 3 unit .BEDTIME SLIDING SC PRN Administration Bedtime Correctional Scale Insulin Human Regular 0 units 03/18/19 12:07 03/20/19 16:36 Humulin R SC 3 unit .AGGRESSIVE SLIDING PRN Administration AGGRESSIVE SLIDING SCALE Protocol Lisinopril 40 mg 03/16/19 09:00 03/20/19 08:27 Zestril PO 40 mg DAILY JOSEPHINE Administration Metformin HCl 500 mg 03/16/19 08:00 03/20/19 16:36 Glucophage PO 500 mg BID-WM [facility] Administration Metoprolol Succinate 50 mg 03/16/19 09:00 03/20/19 08:28 Toprol Xl PO 50 mg DAILY JOSEPHINE Administration Mometasone Furoate/Formoterol Fumar 2 puff 03/15/19 18:30 03/20/19 07:08 Dulera 200 Mcg/5 Mcg Inhaler INH 2 puff BID-RT JOSEPHINE Administration Mometasone Furoate/Formoterol Fumar 2 puff 03/18/19 18:30 03/20/19 07:09 Dulera 200 Mcg/5 Mcg Inhaler INH Not Given BID-RT JOSEPHINE Multivitamins 1 tab 03/16/19 09:00 03/20/19 08:28 Theragran PO 1 tab DAILY JOSEPHINE Administration Ondansetron HCl 4 mg 03/18/19 16:38 03/19/19 20:17 Zofran IVP 4 mg Q4H PRN Administration Nausea/Vomiting Saccharomyces Boulardii 250 mg 03/16/19 09:00 03/20/19 08:28 Florastor PO 250 mg DAILY JOSEPHINE Administration Sodium Chloride 10 ml 03/15/19 21:00 03/20/19 08:27 Flush - Normal Saline IVF 10 ml Q12HR JOSEPHINE Administration - Exam General Appearance: NAD Eye: anicteric sclera ENT: moist mucosa Neck: supple, no JVD Heart: RRR Respiratory: CTAB Gastrointestinal: soft Extremities: no cyanosis Psychiatric: normal affect, normal behavior Hosp A/P - Plan Hosp A/P - Assessment: -Acute on chronic hypoxic respiratory failure -COPD exacerbation -Paroxysmal atrial fibrillation -Hypertension. -Hyperlipidemia. -Diabetes mellitus type 2. -h/o Coronary artery disease -Severe obstructive sleep apnea -Chronic kidney disease, stage 2. -Chronic systolic heart failure NYHA Class 2 - Plan: Pt clinically improved. Continue cefdinir. Cont Eliquis/Toprol for PAF Cont O2/Nebs/Prednisone HTN controlled Continue accuchecks, insulin sliding scale Cont Glipizide 5 mg BID with Metformin Cont fluid rest/ACEI/BB Transfer to floor.
[2019-03-20] MEDS: Atorvastatin Calcium 20 MG TAB PO SCH (21:11)
[2019-03-20] MEDS: traZODone HCl 50 MG TAB PO PRN (21:12)
[2019-03-21 04:56] LABS: Anion Gap 12 mmol/L (10-20); BUN (Urea Nitrogen) 34 mg/dL (8.4-25.7); Calc. Creatinine Clearance 86 mL/min (70-130); Calcium 10.3 mg/dL (7.8-10.44); Carbon Dioxide 25 mmol/L (23-31); Chloride 105 mmol/L (98-107); Estimated GFR-MDRD Greater than 90; Glucose 130 mg/dL (83-110); Potassium 4.6 mmol/L (3.5-5.1); Sodium 137 mmol/L (136-145)
[2019-03-21 04:59] LABS: Eosinophils 1 % (0-10); Hemoglobin 11.6 g/dL (14.0-18.0); Lymphocytes 4 % (21-51); MDiff Complete? YES; Mean Corpuscular HGB CONC 32.9 g/dL (32.0-36.0); Mean Corpuscular Hemoglobin 30.3 pg (27.0-31.0); Mean Corpuscular Volume 92.1 fL (78.0-98.0); Mean Platelet Volume 9.5 fL (7.4-10.4); Monocytes 5 % (0-10); Neutrophil 90 % (42-75); Platelet Count 198 thou/uL (130-400); Platelet Morphology Comment Appears Adequate; Red Blood Cell (RBC) Count 3.83 mill/uL (4.70-6.10); White Blood Cell (WBC) Count 19.9 thou/uL (4.8-10.8)
[2019-03-21] MEDS: Mometasone/Formoterol 120 PUFF INHALER INH SCH ×3 (07:16→18:40)
[2019-03-21] MEDS: glipiZIDE 5 MG TAB PO SCH ×2 (08:26→16:30)
[2019-03-21] MEDS: Calcium Carbonate + Vit D 1 TAB PO SCH ×2 (08:26→16:26)
[2019-03-21] MEDS: Aspirin 81 mg Enteric Coated Tablet PO SCH (08:27)
[2019-03-21] MEDS: Lisinopril 20 MG TAB PO SCH (08:27)
[2019-03-21] MEDS: metFORMIN 500 MG TAB PO SCH ×2 (08:27→16:26)
[2019-03-21] MEDS: Saccharomyces boulardii 250 MG CAP PO SCH (08:27)
[2019-03-21] MEDS: Amlodipine 10 MG TAB PO SCH (08:27)
[2019-03-21] MEDS: Multivit, Therapeutic 1 TAB PO SCH (08:27)
[2019-03-21] MEDS: Cefdinir 300 MG CAP PO SCH ×2 (08:27→19:49)
[2019-03-21] MEDS: predniSONE 20 MG TAB PO SCH (08:27)
[2019-03-21] MEDS: Apixaban 5 MG TAB PO SCH (08:27)
[2019-03-21] MEDS: guaiFENesin ER 600 MG TAB PO SCH ×2 (08:28→19:49)
[2019-03-21] MEDS: Famotidine 20 MG TAB PO SCH ×2 (08:28→19:49)
[2019-03-21] MEDS: NPH, Human Insulin Isophane 300 UNIT/3 ML VIAL SC SCH (08:32)
[2019-03-21] MEDS: Insulin Regular 300 UNITS/3 ML VIAL SC PRN ×2 (11:01→22:41)
--- NOTE | 2019-03-21 12:39 | PDOC.HOSPP ---
- Subjective Encounter Date: 03/21/19 Encounter Time: 07:00 Subjective: Pt seen for followup re; acute on chronic respiratory failure. Feels better. - Objective Vital Signs & Weight: Vital Signs (12 hours) Temp Pulse Pulse Pulse Resp BP BP 03/21/19 11:05 70 14 03/21/19 11:01 98 F 62 18 03/21/19 09:40 82 69 157/70 H 140/63 03/21/19 08:27 70 03/21/19 07:30 03/21/19 07:29 97.5 F L 70 20 03/21/19 07:18 70 14 03/21/19 04:00 97.2 F L 80 20 03/21/19 01:18 72 16 BP BP Pulse Ox Pulse Ox Pulse Ox 03/21/19 11:05 03/21/19 11:01 128/60 94 L 03/21/19 09:40 93 L 94 L 03/21/19 08:27 03/21/19 07:30 97 03/21/19 07:29 129/62 97 03/21/19 07:18 03/21/19 04:00 148/65 H 92 L 03/21/19 01:18 95 Weight Weight 169 lb 9.6 oz Most Recent Monitor Data Heart Rate from ECG 62 NIBP 124/62 NIBP BP-Mean 82 Respiration from ECG 21 SpO2 99 I&O: 03/20/19 03/21/19 03/22/19 06:59 06:59 06:59 Intake Total 1340 1780 Output Total 1700 675 Balance -360 1105 Result Diagrams: 03/21/19 04:11 03/21/19 04:11 Additional Labs: Accuchecks 03/21/19 03/21/19 03/20/19 10:24 05:22 21:29 POC Glucose 151 H 136 H 219 H 03/20/19 16:38 POC Glucose 198 H labs and MARs reviewed by me EKG Reviewed by me: Yes (Tele; NSR) Hospitalist ROS - Review of Systems Constitutional: reports: weakness. denies: fever, chills, sweats, malaise Respiratory: reports: cough, dry Cardiovascular: denies: chest pain, palpitations, orthopnea, paroxysmal noc. dyspnea, edema, light headedness - Medication Medications: Active Medications Generic Name Dose Route Start Last Admin Trade Name Freq PRN Reason Stop Dose Admin Acetaminophen 650 mg 03/15/19 19:12 03/20/19 21:11 Tylenol PO 650 mg Q4H PRN Administration Headache/Fever/Mild Pain (1-3) Albuterol/Ipratropium 3 ml 03/15/19 18:30 03/21/19 11:05 Duoneb NEB 3 ml [id number] JOSEPHINE Administration Albuterol/Ipratropium 3 ml 03/15/19 14:37 03/17/19 12:45 Duoneb NEB 3 ml Q2H PRN Administration SOB &/or Wheezing Amlodipine Besylate 10 mg 03/16/19 09:00 03/21/19 08:27 Norvasc PO 10 mg DAILY JOSEPHINE Administration Apixaban 5 mg 03/16/19 09:00 03/21/19 08:27 Eliquis PO 5 mg DAILY JOSEPHINE Administration Aspirin 81 mg 03/16/19 09:00 03/21/19 08:27 Ecotrin PO 81 mg DAILY JOSEPHINE Administration Atorvastatin Calcium 20 mg 03/15/19 21:00 03/20/19 21:11 Lipitor PO 20 mg HS JOSEPHINE Administration Calcium Carbonate 1,000 mg 03/15/19 19:12 03/18/19 13:50 Tums PO 1,000 mg Q4H PRN Administration Heartburn or Indigestion Calcium/Vitamin D 1 tab 03/16/19 08:00 03/21/19 08:26 Caltrate 600 + Vit D PO 1 tab BID-WM JOSEPHINE Administration Cefdinir 300 mg 03/19/19 21:00 03/21/19 08:27 Omnicef PO 300 mg BID JOSEPHINE Administration Famotidine 20 mg 03/15/19 21:00 03/21/19 08:28 Pepcid PO 20 mg BID JOSEPHINE Administration Glipizide 5 mg 03/16/19 16:30 03/21/19 08:26 Glucotrol PO 5 mg BID-AC JOSE[facility]INE Administration Guaifenesin 600 mg 03/15/19 21:00 03/21/19 08:28 Mucinex PO 600 mg Q12HR JOSEPHINE Administration Insulin Human NPH 10 unit 03/18/19 08:00 03/21/19 08:32 Humulin N SC 10 unit QAM-WM JOSEPHINE Administration Insulin Human Regular 0 units 03/15/19 19:11 03/20/19 22:20 Humulin R SC 2 unit .BEDTIME SLIDING SC PRN Administration Bedtime Correctional Scale Insulin Human Regular 0 units 03/18/19 12:07 03/21/19 11:01 Humulin R SC 3 unit .AGGRESSIVE SLIDING PRN Administration AGGRESSIVE SLIDING SCALE Protocol Lisinopril 40 mg 03/16/19 09:00 03/21/19 08:27 Zestril PO 40 mg DAILY JOSEPHINE Administration Metformin HCl 500 mg 03/16/19 08:00 03/21/19 08:27 Glucophage PO 500 mg BID-WM JOSEPHINE Administration Metoprolol Succinate 50 mg 03/16/19 09:00 03/21/19 08:28 Toprol Xl PO 50 mg DAILY JOSEPHINE Administration Mometasone Furoate/Formoterol Fumar 2 puff 03/18/19 18:30 03/21/19 07:32 Dulera 200 Mcg/5 Mcg Inhaler INH Not Given BID-RT JOSEPHINE Multivitamins 1 tab 03/16/19 09:00 03/21/19 08:27 Theragran PO 1 tab DAILY JOSEPHINE Administration Ondansetron HCl 4 mg 03/18/19 16:38 03/19/19 20:17 Zofran IVP 4 mg Q4H PRN Administration Nausea/Vomiting Prednisone 40 mg 03/21/19 08:00 03/21/19 08:27 Prednisone PO 40 mg [facility] Administration Saccharomyces Boulardii 250 mg 03/16/19 09:00 03/21/19 08:27 Florastor PO 250 mg DAILY JOSEPHINE Administration Sodium Chloride 10 ml 03/15/19 21:00 03/21/19 08:28 Flush - Normal Saline IVF 10 ml Q12HR JOSEPHINE Administration Trazodone HCl 50 mg 03/15/19 19:05 03/20/19 21:12 Desyrel PO 50 mg HS PRN Administration Restlessness - Exam General Appearance: awake alert Eye: anicteric sclera ENT: normocephalic atraumatic, moist mucosa Neck: no JVD, no thyromegaly Heart: RRR Respiratory: CTAB Gastrointestinal: soft, non-tender Extremities: no cyanosis Skin: no rashes Psychiatric: normal affect, normal behavior Hosp A/P - Plan Hosp A/P - Assessment: -Acute on chronic hypoxic respiratory failure -COPD exacerbation -Paroxysmal atrial fibrillation -Hypertension. -Hyperlipidemia. -Diabetes mellitus type 2. -h/o Coronary artery disease -Severe obstructive sleep apnea -Chronic kidney disease, stage 2. -Chronic systolic heart failure NYHA Class 2 -Physical deconditioning - Plan: Continue cefdinir and prednisone. Cont Eliquis/Toprol for PAF HTN controlled Continue accuchecks, insulin sliding scale Cont accuchecks, insulin sliding scale. Cont fluid rest/ACEI/BB Inpt Rehab vs SNU.
[2019-03-21] MEDS: Atorvastatin Calcium 20 MG TAB PO SCH (19:49)
[2019-03-21] MEDS: traZODone HCl 50 MG TAB PO PRN (19:50)
[2019-03-22 04:35] LABS: Anion Gap 12 mmol/L (10-20); BUN (Urea Nitrogen) 30 mg/dL (8.4-25.7); Calc. Creatinine Clearance 83 mL/min (70-130); Carbon Dioxide 23 mmol/L (23-31); Chloride 102 mmol/L (98-107); Estimated GFR-MDRD Greater than 90; Glucose 150 mg/dL (83-110); Potassium 4.7 mmol/L (3.5-5.1); Sodium 132 mmol/L (136-145)
[2019-03-22 04:42] LABS: Hemoglobin 10.6 g/dL (14.0-18.0); Mean Corpuscular HGB CONC 33.2 g/dL (32.0-36.0); Mean Corpuscular Volume 90.2 fL (78.0-98.0); Mean Platelet Volume 10.1 fL (7.4-10.4); Platelet Count 160 thou/uL (130-400); RBC Distribution Width 17.1 % (11.5-14.5); Red Blood Cell (RBC) Count 3.52 mill/uL (4.70-6.10); White Blood Cell (WBC) Count 16.5 thou/uL (4.8-10.8)
[2019-03-22 04:43] LABS: Hypochromia SLIGHT = 6-15 cells (100X) (0-5/hpf); Lymphocytes 7 % (21-51); MDiff Complete? YES; Monocytes 5 % (0-10); Neutrophil 88 % (42-75); Platelet Morphology Comment Appears Adequate
[2019-03-22] MEDS: Mometasone/Formoterol 120 PUFF INHALER INH SCH ×2 (07:46→18:36)
[2019-03-22] MEDS: Apixaban 5 MG TAB PO SCH (08:06)
[2019-03-22] MEDS: predniSONE 20 MG TAB PO SCH (08:06)
[2019-03-22] MEDS: Famotidine 20 MG TAB PO SCH ×2 (08:06→20:18)
[2019-03-22] MEDS: Amlodipine 10 MG TAB PO SCH (08:06)
[2019-03-22] MEDS: Aspirin 81 mg Enteric Coated Tablet PO SCH (08:06)
[2019-03-22] MEDS: metFORMIN 500 MG TAB PO SCH ×2 (08:06→16:17)
[2019-03-22] MEDS: Calcium Carbonate + Vit D 1 TAB PO SCH ×2 (08:06→16:17)
[2019-03-22] MEDS: Cefdinir 300 MG CAP PO SCH ×2 (08:06→20:18)
[2019-03-22] MEDS: glipiZIDE 5 MG TAB PO SCH ×2 (08:06→16:20)
[2019-03-22] MEDS: NPH, Human Insulin Isophane 300 UNIT/3 ML VIAL SC SCH (08:07)
[2019-03-22] MEDS: Multivit, Therapeutic 1 TAB PO SCH (08:07)
[2019-03-22] MEDS: Saccharomyces boulardii 250 MG CAP PO SCH (08:07)
[2019-03-22] MEDS: guaiFENesin ER 600 MG TAB PO SCH ×2 (08:07→20:18)
[2019-03-22] MEDS: Lisinopril 20 MG TAB PO SCH (08:07)
--- NOTE | 2019-03-22 12:28 | PDOC.HOSPP ---
- Subjective Encounter Date: 03/22/19 Encounter Time: 07:20 Subjective: Pt seen for followup re: acute on chronic hypoxic respiratory failure. Feels better, no complaints today. - Objective Vital Signs & Weight: Vital Signs (12 hours) Temp Pulse Resp BP Pulse Ox 03/22/19 11:15 98.1 F 63 18 134/61 95 03/22/19 10:32 62 20 88 L 03/22/19 07:47 95 03/22/19 07:46 64 16 95 03/22/19 07:44 64 16 95 03/22/19 07:02 97.7 F 65 18 130/69 94 L 03/22/19 04:40 97.6 F 65 18 126/58 L 96 03/22/19 04:00 97.6 F 65 18 126/58 L 96 Weight Weight 169 lb 8 oz Most Recent Monitor Data Heart Rate from ECG 62 NIBP 124/62 NIBP BP-Mean 82 Respiration from ECG 21 SpO2 99 I&O: 03/21/19 03/22/19 03/23/19 06:59 06:59 06:59 Intake Total 1780 840 600 Output Total 675 750 Balance 1105 90 600 Result Diagrams: 03/22/19 04:04 03/22/19 04:04 Additional Labs: Accuchecks 03/22/19 03/22/19 03/21/19 10:49 05:53 20:50 POC Glucose 124 H 130 H 256 H 03/21/19 16:29 POC Glucose 174 H EKG Reviewed by me: Yes (Tele: V-paced) Hospitalist ROS - Review of Systems Respiratory: reports: cough, dry. denies: shortness of breath, hemoptysis, SOB with excertion, pleuritic pain, sputum, wheezing Cardiovascular: denies: chest pain, palpitations, orthopnea, paroxysmal noc. dyspnea, edema, light headedness - Medication Medications: Active Medications Generic Name Dose Route Start Last Admin Trade Name Freq PRN Reason Stop Dose Admin Acetaminophen 650 mg 03/15/19 19:12 03/20/19 21:11 Tylenol PO 650 mg Q4H PRN Administration Headache/Fever/Mild Pain (1-3) Albuterol/Ipratropium 3 ml 03/15/19 18:30 03/22/19 10:32 Duoneb NEB 3 ml [id number] JOSEPHINE Administration Albuterol/Ipratropium 3 ml 03/15/19 14:37 03/17/19 12:45 Duoneb NEB 3 ml Q2H PRN Administration SOB &/or Wheezing Amlodipine Besylate 10 mg 03/16/19 09:00 03/22/19 08:06 Norvasc PO 10 mg DAILY JOSEPHINE Administration Apixaban 5 mg 03/16/19 09:00 03/22/19 08:06 Eliquis PO 5 mg DAILY JOSEPHINE Administration Aspirin 81 mg 03/16/19 09:00 03/22/19 08:06 Ecotrin PO 81 mg DAILY JOSEPHINE Administration Atorvastatin Calcium 20 mg 03/15/19 21:00 03/21/19 19:49 Lipitor PO 20 mg HS JOSEPHINE Administration Calcium Carbonate 1,000 mg 03/15/19 19:12 03/18/19 13:50 Tums PO 1,000 mg Q4H PRN Administration Heartburn or Indigestion Calcium/Vitamin D 1 tab 03/16/19 08:00 03/22/19 08:06 Caltrate 600 + Vit D PO 1 tab BID-WM [facility] Administration Cefdinir 300 mg 03/19/19 21:00 03/22/19 08:06 Omnicef PO 300 mg BID JOSEPHINE Administration Famotidine 20 mg 03/15/19 21:00 03/22/19 08:06 Pepcid PO 20 mg BID JOSEPHINE Administration Glipizide 5 mg 03/16/19 16:30 03/22/19 08:06 Glucotrol PO 5 mg BID-AC [facility]INE Administration Guaifenesin 600 mg 03/15/19 21:00 03/22/19 08:07 Mucinex PO 600 mg Q12HR JOSEPHINE Administration Insulin Human NPH 10 unit 03/18/19 08:00 03/22/19 08:07 Humulin N SC 10 unit QAM-WM [facility]INE Administration Insulin Human Regular 0 units 03/15/19 19:11 03/21/19 22:41 Humulin R SC 3 unit .BEDTIME SLIDING SC PRN Administration Bedtime Correctional Scale Insulin Human Regular 0 units 03/18/19 12:07 03/21/19 11:01 Humulin R SC 3 unit .AGGRESSIVE SLIDING PRN Administration AGGRESSIVE SLIDING SCALE Protocol Lisinopril 40 mg 03/16/19 09:00 03/22/19 08:07 Zestril PO 40 mg DAILY JOSEPHINE Administration Metformin HCl 500 mg 03/16/19 08:00 03/22/19 08:06 Glucophage PO 500 mg BID-WM [facility] Administration Metoprolol Succinate 50 mg 03/16/19 09:00 03/22/19 08:07 Toprol Xl PO 50 mg DAILY JOSEPHINE Administration Mometasone Furoate/Formoterol Fumar 2 puff 03/18/19 18:30 03/22/19 07:46 Dulera 200 Mcg/5 Mcg Inhaler INH 2 puff BID-RT [facility]SEPHINE Administration Multivitamins 1 tab 03/16/19 09:00 03/22/19 08:07 Theragran PO 1 tab DAILY [facility]SEPHINE Administration Ondansetron HCl 4 mg 03/18/19 16:38 03/19/19 20:17 Zofran IVP 4 mg Q4H PRN Administration Nausea/Vomiting Prednisone 40 mg 03/21/19 08:00 03/22/19 08:06 Prednisone PO 40 mg QAM-WM [facility] Administration Saccharomyces Boulardii 250 mg 03/16/19 09:00 03/22/19 08:07 Florastor PO 250 mg DAILY JOSEPHINE Administration Sodium Chloride 10 ml 03/15/19 21:00 03/22/19 08:07 Flush - Normal Saline IVF 10 ml Q12HR [facility] Administration Trazodone HCl 50 mg 03/15/19 19:05 03/21/19 19:50 Desyrel PO 50 mg HS PRN Administration Restlessness - Exam General Appearance: NAD Eye: anicteric sclera ENT: moist mucosa Neck: supple Heart: RRR Respiratory: CTAB Gastrointestinal: soft, non-tender Musculoskeletal: no muscle wasting Psychiatric: normal affect, normal behavior Hosp A/P - Plan Hosp A/P - Assessment: -Acute on chronic hypoxic respiratory failure -COPD exacerbation -Paroxysmal atrial fibrillation -Hypertension. -Hyperlipidemia. -Diabetes mellitus type 2. -h/o Coronary artery disease -Severe obstructive sleep apnea -Chronic kidney disease, stage 2. -Chronic systolic heart failure NYHA Class 2 -Physical deconditioning - Plan: Clinicaloly improved. Continue cefdinir and prednisone. HTN controlled Continue accuchecks, insulin sliding scale For Inpt Rehab
[2019-03-22 14:54] VITALS: BMI 25.7
[2019-03-22] MEDS: Insulin Regular 300 UNITS/3 ML VIAL SC PRN ×2 (18:02→20:19)
--- NOTE | 2019-03-22 18:43 | PRG ---
DATE OF SERVICE: 03/22/2019 SERVICE: Pulmonary Medicine. INTERVAL HISTORY: The patient is breathing comfortably. Denies any current chest discomfort, nausea, fevers, or chills. Otherwise, there has been no change to his condition. He indicates that he is doing quite well. PHYSICAL EXAMINATION: VITAL SIGNS: Afebrile, pulse 77, blood pressure 155/66, respirations 17, and saturation 94%, currently on 2 L nasal cannula. HEART: Normal rate. Regular. ABDOMEN: Soft, nontender, and nondistended. Bowel sounds are positive. MUSCULOSKELETAL: No cyanosis or clubbing. There is no pitting in bilateral lower extremities. NEUROLOGIC: Grossly nonfocal. LABORATORY DATA: WBC 16.5, hemoglobin 10.6, and platelets 160,000. Neutrophil count is 88% and gently downtrending. D-dimer is below the assay limit of 0.27. Basic metabolic profile is completely unremarkable. ASSESSMENT: 1. Acute on chronic hypoxic respiratory failure. 2. Chronic obstructive pulmonary disease with acute exacerbation. 3. Obstructive sleep apnea. 4. Acute on chronic systolic heart failure, returned to euvolemia. DISCUSSION AND PLAN: The patient is doing great from respiratory standpoint. From a purely lung standpoint, he is stable for transition out of the hospital. I will repeat a two-view chest x-ray tomorrow. Pulmonary will continue to follow, intermittently during this hospital stay. Job ID: [id number]
[2019-03-22] MEDS: Atorvastatin Calcium 20 MG TAB PO SCH (20:18)
[2019-03-23] MEDS: Mometasone/Formoterol 120 PUFF INHALER INH SCH (07:14)
[2019-03-23] MEDS: Calcium Carbonate + Vit D 1 TAB PO SCH (08:13)
[2019-03-23] MEDS: glipiZIDE 5 MG TAB PO SCH (08:13)
[2019-03-23] MEDS: Lisinopril 20 MG TAB PO SCH (08:14)
[2019-03-23] MEDS: Saccharomyces boulardii 250 MG CAP PO SCH (08:14)
[2019-03-23] MEDS: Famotidine 20 MG TAB PO SCH (08:14)
[2019-03-23] MEDS: Amlodipine 10 MG TAB PO SCH (08:14)
[2019-03-23] MEDS: guaiFENesin ER 600 MG TAB PO SCH (08:14)
[2019-03-23] MEDS: predniSONE 20 MG TAB PO SCH (08:15)
[2019-03-23] MEDS: Cefdinir 300 MG CAP PO SCH (08:15)
[2019-03-23] MEDS: Apixaban 5 MG TAB PO SCH (08:15)
[2019-03-23] MEDS: NPH, Human Insulin Isophane 300 UNIT/3 ML VIAL SC SCH (08:15)
[2019-03-23] MEDS: Multivit, Therapeutic 1 TAB PO SCH (08:15)
[2019-03-23] MEDS: Aspirin 81 mg Enteric Coated Tablet PO SCH (08:15)
[2019-03-23] MEDS: metFORMIN 500 MG TAB PO SCH (08:19)
--- NOTE | 2019-03-23 10:07 | RAD ---
PA AND LATERAL CHEST: INDICATIONS: History of infiltrates. COMPARISON: Prior exam dated 03/17/2019. FINDINGS: The bilateral lower lobe air space opacities have near completely resolved. There are small bilateral pleural effusions, which are likely stable to the comparison on 03/17/2019. There is vertebroplasty change involving T9. There is multilevel spondylosis. This is stable to a comparison CT dated 019. The prominent compression abnormality involving T6 is stable appearing. The mild wedge compressi on abnormality of T11 is stable. IMPRESSION: 1. Resolution of the previously seen bilateral parenchymal infiltrates. 2. Tiny residual small bilateral pleural effusions. 3. Stable mild cardiomegaly and multilevel compression abnormalities. POS: [facility]
[2019-03-23 11:43] VITALS: TEMP 97.7
[2019-03-23] MEDS: Insulin Regular 300 UNITS/3 ML VIAL SC PRN (12:33)
[2019-03-23 12:58] VITALS: BP 145/67
--- NOTE | 2019-03-23 16:01 | PRG ---
DATE OF SERVICE: 03/23/2019 SERVICE: Pulmonary Medicine. INTERVAL HISTORY: The patient's breathing has improved dramatically. He feels like he is having a fantastic breathing day. He is able to walk with physical therapy. He remains weak. Otherwise, there has been no interval change to his condition however. PHYSICAL EXAMINATION: VITAL SIGNS: Afebrile, pulse 65, blood pressure 120/63, respirations 18, saturation 96% on 2 L nasal cannula. HEENT: Normocephalic and atraumatic. Sclerae white. Conjunctivae pink. Oral mucosa is moist without lesions. LUNGS: Decreased air entry. There is a prolonged expiratory phase and wheezing with forced exhalation. He is moving better air today, however. No crackles or rhonchi are appreciated. HEART: Normal rate, regular. ABDOMEN: Soft, nontender, nondistended, bowel sounds are positive. MUSCULOSKELETAL: No cyanosis or clubbing. There is no pitting in the bilateral lower extremities. NEUROLOGIC: Grossly nonfocal. LABORATORY DATA: WBC 16.5, hemoglobin 10.6, platelets 160,000. Neutrophil count is 88%. This is downtrending gently. D-dimer 0.27. Basic metabolic profile is essentially unremarkable from yesterday. IMAGING: Chest x-ray demonstrates small bilateral pleural effusions, stable. Mild cardiomegaly and multilevel compression abnormalities. Resolution of the previous parenchymal infiltrates which were worse on the right. ASSESSMENT: 1. Acute on chronic hypoxic respiratory failure. 2. Chronic obstructive pulmonary disease with acute exacerbation. 3. Obstructive sleep apnea. 4. Acute on chronic systolic heart failure, returned to euvolemia. DISCUSSION AND PLAN: The patient is doing great from respiratory standpoint. He indicates his breathing is back to baseline. From my perspective, he is stable for transition out of the hospital. He is going to be at high risk for returning to the hospital. If he has to come back, we should entertain the possibility of sending him to a [facility] facility. Job ID: [id number]
--- NOTE | 2019-03-23 18:53 | DIS ---
DATE OF ADMISSION: 03/15/2019 DATE OF DISCHARGE: 03/23/2019 PRIMARY CARE PROVIDER: [facility] [place]. DISCHARGE DIAGNOSES: 1. Acute on chronic hypoxic respiratory failure. 2. Chronic obstructive pulmonary disease exacerbation. 3. Hyponatremia. CONDITION OF PATIENT ON THE DAY OF DISCHARGE: Stable. I assessed Mr. Jiménez on the day of discharge. He denies any chest pain or shortness of breath. Vital signs are stable. S1 and S2 are heard, regular. Lungs are clear to auscultation bilaterally. CONSULTATIONS DURING THIS HOSPITALIZATION: Pulmonary and Critical Care Medicine, Dr. Jiménez. DISCHARGE MEDICATIONS: 1. Yaneth-Methow p.r.n. 2. Guaifenesin p.r.n. 3. Proventil HFA p.r.n. 4. Amlodipine 10 mg daily. 5. Apixaban 5 mg daily. 6. Aspirin 81 mg daily. 7. Lipitor 20 mg at bedtime. 8. Symbicort two puffs 2 times a day. 9. Glipizide 5 mg daily. 10. Lisinopril 40 mg daily. 11. Metformin 500 mg 2 times a day. 12. Omnicef 300 mg 2 times a day for 2 more days. 13. Metoprolol succinate 50 mg daily. 14. Prednisone taper. 15. Spiriva 18 mcg inhalation daily. 16. Cetirizine p.r.n. 17. Trazodone p.r.n. 18. DuoNeb p.r.n. HOSPITAL COURSE: Mr. Jiménez is a pleasant 74-year-old gentleman, who was admitted to [facility] on 03/15/2019, for acute on chronic hypoxic respiratory failure secondary to COPD exacerbation. He was treated with oxygen, steroids, bronchodilators, and antibiotics. On 03/17/2019, there was a Code Green called for respiratory distress. He was treated with BiPAP machine in the IMCU and improved clinically. He was subsequently transferred to the telemetry floor. He was seen by Rehab Services. Referral was made for inpatient rehab, but it was declined. The patient wished to go home with home health. Arrangements are being made for the same. On the day of discharge, he has white count 16,500, hemoglobin 10.6, platelet count 160,000. His sodium was 132 on 03/22/2019, potassium was 4.7, and creatinine was 0.82. DISCHARGE DESTINATION: Home. TIME SPENT: Total amount of time spent coordinating this discharge: 32 minutes. DIET: Diabetic and heart healthy. ACTIVITY: Ad arti. TIME SPENT: Total amount of time spent coordinating this discharge: 32 minutes. Job ID: [id number]
--- NOTE | 2019-03-25 14:19 | EKG ---
Test Reason : Blood Pressure : / mmHG Vent. Rate : 062 BPM Atrial Rate : 063 BPM P-R Int : 000 ms QRS Dur : 128 ms QT Int : 474 ms P-R-T Axes : 000 -39 056 degrees QTc Int : 481 ms Ventricular-paced rhythm Abnormal ECG Confirmed by GLADYS FREEMAN DO ([id number]), book or script editor MARILU CLEARY ([id number]) on 03/25/2019 2:19:02 PM Referred By: Confirmed By:GLADYS FREEMAN DO
--- NOTE | 2019-03-26 21:48 | PQF ---
[employer] Fence Supervisor Crystal Reports Winform Viewer LESA LARKIN DAVID [id number] CLINICAL DOCUMENTATION CLARIFICATION FORM: POST DISCHARGE Addendum to original discharge summary date: ____ Late entry note date: __ DATE: 03/26/19 ATTN: Juan Pablo Ga Please exercise your independent, professional judgment in responding to the clarification form. Clinical indicators are provided on the bottom of this form for your review Can you please further clarify the diagnosis of the patient based on the clinical indicators below? Please check appropriate box(es): [ ] Sepsis due to: (Pna, UTI, gangrenous gall bladder, etc.) [ ] Severe sepsis with acute organ dysfunction of: (Examples: respiratory failure, encephalopathy, acute kidney failure, other) [ ] Localized infection without sepsis [x ] Other diagnosis ____No evidence of sepsis [ ] Unable to determine In addition, please specify: Present on Admission (POA): [ ] Yes [ ] No [ ] Unable to determine For continuity of documentation, please document condition throughout progress notes and discharge summary. Thank You. CLINICAL INDICATORS - SIGNS / SYMPTOMS / LABS ED Provider Pg.3- Pneumonia DS pg.1- admitted for acute in chronic hypoxic respiratory failure 2/2 COPD exacerbation H and P pg.1- his chest X ray consistent with pneumonia H and P pg.2- vital signs pulse rate 73, respiration 40, O2 saturation 87% Laboratory- WBC 45.5H, 19.2h, 23.5H, 16.5H, 19.9H Hospitalist PN 03/17 pg.8- acute on chronic respiratory failure 2/2 COPD exacerbation with ? Pneumococcal pneumonia- improving RISK FACTORS Suspected pneumonia ? Pneumococcal COPD- Consult pg.1 NURY- Consult pg.1 chronic systolic CHF- Consult pg.1 CAD-consult pg.1 Viral prodrome- Consult pg.2 TREATMENTS: Chest X ray 03/15 Pulmonary Consult 03/13 Dr. Jiménez IV Fluids- MAY IV antibiotics- MAY O2 supplementation Daily CBC- Laboratory (This form is maintained as a part of the permanent medical record) 2014 [employer]. All Rights Reserved [email or web address] [not provided] MTDD
--- NOTE | 2019-03-26 21:51 | PQF ---
[employer] H[employer] Sales Assistant Crystal Reports Winform Viewer LESA LARKIN CONSTANZA GA [id number] [address] [place] [address] [id number] CLINICAL DOCUMENTATION CLARIFICATION FORM: POST DISCHARGE Addendum to original discharge summary date: ____ Late entry note date: __ DATE: 03/26/19 ATTN:Constanza Ga Please exercise your independent, professional judgment in responding to the clarification form. Clinical indicators are provided on the bottom of this form for your review Can you please further clarify if pneumococcal Pneumonia is ruled in or ruled out? Pneumococcal Pneumonia [ ] Ruled in diagnosis [ ] Continue to treat [ ] Resolved [ x ] Ruled out diagnosis [ ] Cannot rule out diagnosis [ ] Other diagnosis [ ] Unable to determine In addition, please specify: Present on Admission (POA): [ ] Yes [ ] No [ ] Unable to determine For continuity of documentation, please document condition throughout progress notes and discharge summary. Thank You. CLINICAL INDICATORS - SIGNS / SYMPTOMS / LABS ED Provider Pg.3- Pneumonia H and P pg.1- his chest X ray consistent with pneumonia Hospitalist PN 03/17 pg.8- acute on chronic respiratory failure 2/2 COPD exacerbation with ? Pneumococcal pneumonia- improving Laboratory- WBC 45.5H, 19.2h, 23.5H, 16.5H, 19.9H DS pg.1- admitted for acute in chronic hypoxic respiratory failure 2/2 COPD exacerbation RISK FACTORS COPD- Consult pg.1 NURY- Consult pg.1 chronic systolic CHF- Consult pg.1 CAD-consult pg.1 Viral prodrome- Consult pg.2 TREATMENTS Chest X ray 03/15 Pulmonary Consult 03/13 Dr. Jiménez IV Fluids- MAR IV antibiotics- MAR O2 supplementation Daily CBC- Laboratory (This form is maintained as a part of the permanent medical record) 2014 [employer]. All Rights Reserved Joshua [email or web address] [not provided] MTDD
== END 2019-03-23 14:35 | disposition home health service (06) | DRG 189 ==
LOC: ERS 11:11 → 2SW 15:51 → 2NO 03-16 22:23 → IMCU/EMU 03-17 12:40 → 2NO 03-20 20:03
PROVIDERS: ADMIT Emergency Medicine; ATTEND Internal Medicine
PROC: 5A09457 Assistance with Respiratory Ventilation, 24-96 Consecutive Hours, Continuous Positive Airway Pressure (ICD-10-PCS; principal; 2019-03-17)
DX: J96.21 Acute and chronic respiratory failure with hypoxia (principal); I50.23 Acute on chronic systolic (congestive) heart failure; J44.1 Chronic obstructive pulmonary disease with (acute) exacerbation; E87.1 Hypo-osmolality and hyponatremia; I13.0 Hypertensive heart and chronic kidney disease with heart failure and stage 1 through stage 4 chronic kidney disease, or unspecified chronic kidney disease; D63.1 Anemia in chronic kidney disease; F51.04 Psychophysiologic insomnia; E78.5 Hyperlipidemia, unspecified; I25.10 Atherosclerotic heart disease of native coronary artery without angina pectoris; E11.22 Type 2 diabetes mellitus with diabetic chronic kidney disease; I48.0 Paroxysmal atrial fibrillation; N18.2 Chronic kidney disease, stage 2 (mild); G47.33 Obstructive sleep apnea (adult) (pediatric); F41.9 Anxiety disorder, unspecified; Z99.89 Dependence on other enabling machines and devices; Z95.0 Presence of cardiac pacemaker; Z87.891 Personal history of nicotine dependence; Z79.82 Long term (current) use of aspirin; Z79.84 Long term (current) use of oral hypoglycemic drugs; Z79.51 Long term (current) use of inhaled steroids; Z79.899 Other long term (current) drug therapy; Z99.81 Dependence on supplemental oxygen; Z95.5 Presence of coronary angioplasty implant and graft; Z79.01 Long term (current) use of anticoagulants
CPT/HCPCS: 36415; 36416; 71045; 71046; 80048; 80053; 81003; 82805; 83735; 83880; 84484; 85025; 85379; 93005; 94640; 94660; 94760; 96365; 96367; J0456; J0692; J0696; J1815; J1940; J2060; J2405; J2920; J2930; J3475; J3490; J7050; J7512; J7620

== ENCOUNTER 2019-06-25 22:48 | Inpatient (IN) | payer MEDICARE, OTHER ==
[2019-06-25] MEDS ORDERED: predniSONE 20 MG TAB ONE (23:34)
[2019-06-25 23:36] LABS: #Basophils 0.1 thou/uL (0.0-0.2); #Eosinphils 0.1 thou/uL (0.0-0.7); #Monocytes 0.6 thou/uL (0.11-0.59); #Neutrophils 13.5 thou/uL (1.40-6.50); %Basophils 0.6 % (0.0-1.0); %Eosinophils 0.9 % (0.0-10.0); %Lymphocytes 6.3 % (21.0-51.0); %Monocytes 3.8 % (0.0-10.0); %Neutrophils 88.5 % (42.0-75.0); Hemoglobin 12.1 g/dL (14.0-18.0); Mean Corpuscular HGB CONC 32.5 g/dL (32.0-36.0); Mean Corpuscular Hemoglobin 27.9 pg (27.0-31.0); Mean Corpuscular Volume 85.9 fL (78.0-98.0); Mean Platelet Volume 10.4 fL (7.4-10.4); Platelet Count 166 thou/uL (130-400); RBC Distribution Width 17.5 % (11.5-14.5); Red Blood Cell (RBC) Count 4.34 mill/uL (4.70-6.10); White Blood Cell (WBC) Count 15.2 thou/uL (4.8-10.8)
[2019-06-25] MEDS ORDERED: Albuterol Sulfate 2.5 mg/3 ml Neb ONE (23:45)
--- NOTE | 2019-06-25 23:45 | RAD ---
CHEST ONE VIEW: History: Sob Comparison: 03-23-2019 FINDINGS: Chronic lung hyperinflation. No bibasilar airspace infiltrates. No pneumothorax. No acute osseous abn ormality. IMPRESSION: 1. Findings concerning for multifocal lower lobe pneumonia. 2. Linear scar right upper lobe, chronic. 3. Thoracic spine question deformities, likely chronic. POS: HOME
[2019-06-25 23:52] LABS: ALT (SGPT) 13 U/L (8-55); AST (SGOT) 14 U/L (5-34); Albumin 4.2 g/dL (3.4-4.8); Alkaline Phosphatase 93 U/L (40-110); Anion Gap 13 mmol/L (10-20); BUN (Urea Nitrogen) 16 mg/dL (8.4-25.7); Bilirubin, Total 0.7 mg/dL (0.2-1.2); Calc. Creatinine Clearance 0 mL/min (70-130); Calcium 9.4 mg/dL (7.8-10.44); Carbon Dioxide 23 mmol/L (23-31); Chloride 105 mmol/L (98-107); Estimated GFR-MDRD 73; Globulin 2.8 g/dL (2.4-3.5); Glucose 245 mg/dL (83-110); Potassium 4.3 mmol/L (3.5-5.1); Sodium 137 mmol/L (136-145)
[2019-06-26] MEDS ORDERED: Albuterol 200 PUFF (6.7GM INHALER) ONE (00:04)
[2019-06-26] MEDS ORDERED: Azithromycin 500 MG VIAL ONE (01:16)
[2019-06-26] MEDS ORDERED: cefTRIAXone\\ROCEPHIN 1 GM VIAL ONE (01:16)
--- NOTE | 2019-06-26 02:27 | PDOC.FPRHP ---
- History of Present Illness Chief Complaint: SOB History of Present Illness: 74 yo caucassion male comes in w/ c/c of SOB. Pt has pmh of COPD, on 2L at home during the day and 4L at night, and CHF w/ EF on echo back 11/24 of 30-35%. Pt reports earlier today had brief episode of SOB that improved with his home nebulizer. States was then getting up from dinner and again got SOB to where he almost fell to the floor. States he took the nebulizer again but it did not get better like usual. Reports having cough but states it is about the same as normal. Denies any fever, chills or nasal congestion. Reported having some left sided chest pain. Did not radiate anywhere. Only lasted a few seconds and then went away. Pt denies any recent sick contacts. Pt is on coumadin. Reports taking 10mg daily. States had INR checked a few weeks ago and was ago. Reports he takes for clots in his legs. ED Course: Prednisone, Albuterol Neb, Rocephin and Azithromycin - Allergies/Adverse Reactions Allergies Allergy/AdvReac Type Severity Reaction Status Date / Time No Known Drug Allergies Allergy Verified 05/26/19 11:49 - Home Medications Medication Instructions Recorded Confirmed Type Atorvastatin Calcium [Lipitor] 20 mg PO HS 11/03/15 06/26/19 History Budesonide-Formoterol [Symbicort 2 puff INH BID 11/03/15 06/26/19 History 80-4.5] Cetirizine HCl [Allergy Relief] 10 mg PO DAILY 11/03/15 06/26/19 History metFORMIN HCl 500 mg PO BID-WM 11/03/15 06/26/19 History Aspirin [Ecotrin Low Strength] 81 mg PO DAILY tab 03/26/17 06/26/19 Rx Amlodipine [Norvasc] 10 mg PO DAILY 07/02/17 06/26/19 History Lisinopril [Zestril] 10 mg PO DAILY 07/02/17 06/26/19 History glipiZIDE [Glipizide] 5 mg PO DAILY 07/02/17 06/26/19 History traZODone HCl [Trazodone HCl] 50 mg PO HS PRN 07/02/17 06/26/19 History Albuterol Sulfate HFA (OR) 2 puff INH Q4H PRN 05/15/18 06/26/19 History [Proventil Hfa (or)] Ipratropium/Albuterol Sulfate 3 ml NEB [id number] PRN neb 11/28/18 06/26/19 Rx [DuoNeb] Tiotropium [place] [Spiriva] 18 mcg IH DAILY-AC #1 cap.w.dev 11/28/18 06/26/19 Rx Mecobalamin [B12 Active] 1,000 mcg PO DAILY 06/26/19 06/26/19 History Metoprolol Succinate [Toprol XL] 100 mg PO DAILY 06/26/19 06/26/19 History Multivitamin 1 each PO DAILY 06/26/19 06/26/19 History Spironolactone 25 mg PO DAILY 06/26/19 06/26/19 History Torsemide 2 tab PO DAILY 06/26/19 06/26/19 History - History PMHx: COPD on 2L at home, Chronic Systolic HF, A. Fib, Former Smoker, Severe NURY on CPAP, CAD, DM2, Hx DVT PSHx: Pacemaker placement, Coronary stents, L. Hand Surgery, Multiple left leg surgeris FHx: Noncontributory Social: Former smoker. quit one year ago. He has more than 50 pack year smoking history. Pt reports not wanting chest compressions or anything done for his heart. Pt wishes to still be intubated. - Review of Systems General: denies: fever/chills, weight/appetite/sleep changes, fatigue ENT: denies: nasal congestion, rhinorrhea Respiratory: reports: cough (chronic), shortness of breath, exercise intolerance (Reports could barley make it back to his kitchen table). denies: congestion Cardiovascular: reports: chest pain (left sided did not radiate). denies: palpitation, edema Gastrointestinal: denies: nausea, vomiting, diarrhea, constipation, abdominal pain, GI bleeding Genitourinary: denies: incontinence, dysuria Skin: denies: rashes, lesions Musculoskeletal: denies: pain Neurological: denies: numbness, syncope, weakness Psychological: denies: anxiety, depression - Vital signs BP: [132/110] HR: [71] RR: [20] Tmax: [98.2] Pox: [100]% on [4L NC] Wt: 83kg - Physical Exam Constitutional: NAD, awake, alert and oriented HEENT: normocephalic and atraumatic, grossly normal vision, grossly normal hearing Neck: FROM, trachea midline -Heart: Was not able to auscultate as they did not have sterile stethescope in the room and pt is covid rule out -Lungs: Did not auscultate as they did not have sterile stethescope in the room and pt is covid rule out. pt had good chest expansion. Pt had mild increased work of breathing. No accessory muscle use noted. Abdomen: soft, non-tender, no masses/distention, no hernias Musculoskeletal: ROM grossly normal Neurological: no focal deficit, normal sensation Skin: no rash/lesions, good turgor, capillary refill <2 seconds Heme/Lymphatic: no unusual bruising or bleeding Psychiatric: normal mood and affect, good judgment and insight, intact recent and remote memory FMR H&P: Results - Labs Result Diagrams: 06/26/19 03:51 06/26/19 11:41 Lab results: WBC 15.2 thou/uL (4.8-10.8) H 06/25/19 23:10 Hgb 12.1 g/dL (14.0-18.0) L 06/25/19 23:10 Hct 37.3 % (42.0-52.0) L 06/25/19 23:10 MCV 85.9 fL (78.0-98.0) 06/25/19 23:10 Plt Count 166 thou/uL (130-400) 06/25/19 23:10 Neutrophils % 88.5 % (42.0-75.0) H 06/25/19 23:10 Sodium 137 mmol/L (136-145) 06/25/19 23:10 Potassium 4.3 mmol/L (3.5-5.1) 06/25/19 23:10 Chloride 105 mmol/L (98-107) 06/25/19 23:10 Carbon Dioxide 23 mmol/L (23-31) 06/25/19 23:10 BUN 16 mg/dL (8.4-25.7) 06/25/19 23:10 Creatinine 1.00 mg/dL (0.7-1.3) 06/25/19 23:10 Glucose 245 mg/dL (83-110) H 06/25/19 23:10 Lactic Acid 2.0 mmol/L (0.5-2.2) 06/26/19 01:28 Calcium 9.4 mg/dL (7.8-10.44) 06/25/19 23:10 Total Bilirubin 0.7 mg/dL (0.2-1.2) 06/25/19 23:10 AST 14 U/L (5-34) 06/25/19 23:10 ALT 13 U/L (8-55) 06/25/19 23:10 Alkaline Phosphatase 93 U/L (40-110) 06/25/19 23:10 Serum Total Protein 7.0 g/dL (5.8-8.1) 06/25/19 23:10 Albumin 4.2 g/dL (3.4-4.8) 06/25/19 23:10 - EKG Interpretation EKG: Ventricular paced. No ST elevation noted. - Radiology Interpretation CT scan - chest Status: image reviewed by me, report reviewed by me (CT Chest: Air noted b/w T6- T7, discitis and osteo are in differential. Trace infiltrates in RLL, LLL, RUL. R. thyroid mass 2.8x3.8 w/ low dens. Mod disc space narrowing and osteophyte in thoracic spine. A chronic compression deformity of T6 w/ loss 20-30% height. Small pleural effusions) Chest x-ray Status: image reviewed by me, report reviewed by me (CXR: Concern for multifocal LL PNA. Linear scar RUL. Likely chronic thoracic findings) FMR H&P: A/P - Problem List (1) Acute and chronic respiratory failure with hypoxia Current Visit: No Status: Acute Code(s): J96.21 - ACUTE AND CHRONIC RESPIRATORY FAILURE WITH HYPOXIA Comment: Due to COPD exacerbation (2) Anemia of chronic disease Current Visit: No Status: Acute Code(s): D63.8 - ANEMIA IN OTHER CHRONIC DISEASES CLASSIFIED ELSEWHERE (3) COPD exacerbation Current Visit: No Status: Acute Code(s): J44.1 - CHRONIC OBSTRUCTIVE PULMONARY DISEASE W (ACUTE) EXACERBATION Comment: Precipitated by aspiration. Patient had MBS which showed significant aspiration. (4) Congestive heart failure (CHF) Current Visit: No Status: Acute Code(s): I50.9 - HEART FAILURE, UNSPECIFIED Qualifiers: Heart failure type: systolic Heart failure chronicity: chronic Qualified Code(s): I50.22 - Chronic systolic (congestive) heart failure (5) Atrial fibrillation Current Visit: No Status: Chronic Code(s): I48.91 - UNSPECIFIED ATRIAL FIBRILLATION Qualifiers: Atrial fibrillation type: paroxysmal Qualified Code(s): I48.0 - Paroxysmal atrial fibrillation Comment: (6) CAD (coronary artery disease) Current Visit: No Status: Chronic Code(s): I25.10 - ATHSCL HEART DISEASE OF [place] CORONARY ARTERY W/O ANG PCTRS Qualifiers: Associated angina: without angina (7) Chronic anticoagulation Current Visit: No Status: Chronic Code(s): Z79.01 - HALF-WAY (CURRENT) USE OF ANTICOAGULANTS (8) Diabetes type 2, controlled Current Visit: No Status: Chronic Code(s): E11.9 - TYPE 2 DIABETES MELLITUS WITHOUT COMPLICATIONS Qualifiers: Diabetes mellitus intermediate manager insulin use: without correction use Comment: Control suboptimal due to steroid therapy (9) Dyslipidemia Current Visit: No Status: Chronic Code(s): E78.5 - HYPERLIPIDEMIA, UNSPECIFIED (10) Hypertension Current Visit: No Status: Chronic Code(s): I10 - ESSENTIAL (PRIMARY) HYPERTENSION Qualifiers: (11) Tobacco abuse Current Visit: No Status: Chronic Code(s): Z72.0 - TOBACCO USE - Plan Acute on Chronic Resp Failure 2/2 COPD exacerbation and Multilobar PNA -pt had a few episodes of SOB today not improved with nebs. Normally wears 2L O2 during day and came in requiring 4L O2. Wears 4L O2 at night when sleeping. Afebrile. -CXR and CT scan show multilobar PNA. -COVID, Resp Panel, Flu pending, -Procal, Blood Cx pending -Duonebs jefferson q6hr w/ q4hr prn -Continue Rocephin and Azithro -Continue home meds -WBC 15.2. Continue to trend -Isolation droplet/contact precautions sCHF w/ pacer -Echo 11/24 shows EF 30-35% -no sign of fluid overload at this time. BNP pending -Continue home meds -Trend trop Thoracic Spine Abnormality -Air space noted in T6-T7 concern for discitis/osteo. Pt did not report pain or injury. -Possible get MRI -Adjust abx if more concerned for infection -Blood cx pending. -PT consulted HTN -Continue home meds, Monitor and adjust as needed HLD -Continue Home meds DMII -Held home meds. -Accuchecks ACHS -Mild SSI NURY -continue cpap at night Chronic Anticoagulation -Reports takes for hx of blood clots -Reports being on coumadin 10 mg daily. Confirm home dose. -PT/INR pending Code: Intubate only, No cardiac intervention Dispo: At this time will await further test results. Will tx for PNA at this time. Pt on home night dose of Oxygen at this time. Will possibly get MRI for thoracic spine findings on CT. Adjust abx to tx for more osteo if indicated. - FMR H&P: Upper Level - Plan Date/Time: 06/26/19 [id number] I, [], have evaluated this patient and agree with findings/plan as outlined by technical support intern resident. Pertinent changes/additions are listed here. Addendum - Attending - Attending Attestation Date/Time: 06/26/19 2794 I personally evaluated the patient and discussed the management with Dr. Wade I agree with the History, Examination, Assessment and Plan documented above with any addition or exceptions noted below. Patient had an acute worsening of his respiratory status this morning but did not require CODE to be call. ABG show possible metabolic acidosis with lower end of normal for pO2. High flow nasal cannula started. Patient was very agitated and was frustrated with possibility of him having COVID. Ordered Ativan which has help his symptoms. Prior to administration of ativan, re- discussed CODE status. Patient initially INTUBATE ONLY. After 2 separate discussions, patient expressed that he would want CPR but NEVER wanted to be intubated. Order updated in the computer. Approx 35 min critical care time spent on this patient.
[2019-06-26] MEDS ORDERED: Acetaminophen 650 MG Suppository PR PRN (03:14)
[2019-06-26] MEDS ORDERED: Ondansetron ODT 4 MG TAB PO PRN (03:14)
[2019-06-26] MEDS ORDERED: Acetaminophen 325 MG TAB PO PRN (03:14)
[2019-06-26] MEDS ORDERED: Dextrose 50% Abboject 50 ML SYRINGE SLOW IVP PRN (03:14)
[2019-06-26] MEDS ORDERED: Dextrose 5% in Water 1,000 ML IV PRN (03:14)
[2019-06-26] MEDS ORDERED: Spironolactone 25 MG TAB PO SCH (03:30)
[2019-06-26] MEDS ORDERED: Loratadine 10 MG TAB PO PRN (03:30)
[2019-06-26] MEDS ORDERED: PROVENTIL INHALER 6.7 G (200 INHALATIONS) INH PRN (03:41)
[2019-06-26] MEDS ORDERED: Albuterol 200 PUFF (6.7GM INHALER) INH PRN (04:00)
[2019-06-26 04:12] LABS: INR-International Normal Ratio 1.2; Prothrombin Time 15.2 SEC (12.0-14.7)
[2019-06-26 04:25] LABS: Hemoglobin 13.1 g/dL (14.0-18.0); Lymphocytes 4 % (21-51); MDiff Complete? YES; Mean Corpuscular HGB CONC 32.8 g/dL (32.0-36.0); Mean Corpuscular Hemoglobin 28.3 pg (27.0-31.0); Mean Corpuscular Volume 86.3 fL (78.0-98.0); Mean Platelet Volume 10.5 fL (7.4-10.4); Monocytes 2 % (0-10); Neutrophil 94 % (42-75); Platelet Count 195 thou/uL (130-400); Platelet Morphology Comment Appears Adequate; RBC Distribution Width 17.5 % (11.5-14.5); Red Blood Cell (RBC) Count 4.63 mill/uL (4.70-6.10); White Blood Cell (WBC) Count 23.2 thou/uL (4.8-10.8)
[2019-06-26 04:27] LABS: ALT (SGPT) 32 U/L (8-55); AST (SGOT) 41 U/L (5-34); Albumin 4.4 g/dL (3.4-4.8); Alkaline Phosphatase 111 U/L (40-110); Anion Gap 14 mmol/L (10-20); BUN (Urea Nitrogen) 14 mg/dL (8.4-25.7); Bilirubin, Total 0.7 mg/dL (0.2-1.2); Calc. Creatinine Clearance 0 mL/min (70-130); Calcium 8.6 mg/dL (7.8-10.44); Carbon Dioxide 19 mmol/L (23-31); Chloride 108 mmol/L (98-107); Estimated GFR-MDRD 84; Globulin 2.6 g/dL (2.4-3.5); Glucose 250 mg/dL (83-110); Potassium 5.1 mmol/L (3.5-5.1); Sodium 136 mmol/L (136-145)
[2019-06-26 04:30] LABS: Troponin I Less than 0.010 ng/mL (< 0.028)
[2019-06-26 06:35] VITALS: BMI 27.6
[2019-06-26] MEDS: HumaLOG 300 UNITS/3 ML VIAL SC PRN ×2 (06:46→21:55)
[2019-06-26] MEDS: Albuterol 200 PUFF (6.7GM INHALER) INH SCH ×3 (06:47→20:14)
[2019-06-26] MEDS: Mometasone 100 MCG/Formoterol 5 MCG 120 PUFF INHALER INH SCH ×2 (06:47→20:14)
[2019-06-26] MEDS ORDERED: Non-Formulary Item 1 EACH (Tiotropium Bromide [Spiriva] 18 MCG) IH SCH (07:30)
--- NOTE | 2019-06-26 07:33 | CT ---
PRELIMINARY REPORT/[facility]/EMERGENCY AFTER HOURS PROCEDURE: Receipt of this report by the clinical staff was confirmed with Dali Medina RN by Karen Powers Jun 26, 2019 01:09:00 CDT. Addendum electronically signed by Karen Powers on June 26, 2019 1:09:[address] OF THE CHEST WITHOUT IV CONTRAST CLINICAL HISTORY: COPD, shortness of breath and occasional left sided chest pain. TECHNIQUE: Serial axial images obtained. Sagittal reconstructed images obtained. Coronal reconstructed images obtained. Exam is performed without intravenous contrast. Per PQRS, CT exam is performed using one or more of the following dose reduction techniques: Automate d exposure control, adjustment of the mA and/or KV according to patient size, or use of iterative rec onstruction techniques. COMPARISON: None FINDINGS: Small bilateral pleural effusions are seen. Trace infiltrates are seen in the right lower lobe, left lower lobe and right upper lobe, suggesting early pneumonia. Coronavirus is in the differential. Negative for pneumothorax. Normal size heart is seen. There is a right side thyroid mass measuring 3.8 x 3.8 cm with low density. Follow-up with thyroid ul trasound. A left sided pacemaker is seen. Atherosclerotic calcifications of the coronary arteries and aorta are seen. Small mediastinal and hilar lymph nodes are seen. Kyphoplasty changes are seen at T9. Moderate disc space narrowing and osteophyte formation of the thoracic spine is seen at multiple leve ls. A chronic compression deformity of T6 is seen with a loss of height of approximately 20-30 %. There is air noted between T6 - T7, discitis and osteomyelitis are in the differential. Recommend MRI thoracic spine with IV contrast. Rest of the solid organs, viscera, and bones are unremarkable. IMPRESSION: 1. Air noted between T6 - T7, discitis and osteomyelitis are in the differential. Recommend MRI thora cic spine with IV contrast. 2. Trace infiltrates in the right lower lobe, left lower lobe and right upper lobe, suggesting early pneumonia. Coronavirus is in the differential. 3. Right side thyroid mass measuring 3.8 x 3.8 cm with low density. Follow-up with thyroid ultrasound . 4. Moderate disc space narrowing and osteophyte formation of the thoracic spine is seen at multiple l evels. 5. A chronic compression deformity of T6 is seen with a loss of height of approximately 20-30 %. 6. Small bilateral pleural effusions. ELECTRONICALLY SIGNED BY: Víctor Rendon MD Jun 26, 2019 1:05:01 AM CDT This report is intended for review by the ordering physician only, in accordance of law. If you recei ve this report in error, please call [facility] at [phone]. FINAL REPORT EMERGENCY AFTER HOURS CT CHEST WITHOUT CONTRAST: FINDINGS/IMPRESSION: I agree with the findings and impression given in the preliminary report per [facility] physici an. 1. There is an infiltrate in the right lower lobe. 2. Air is seen within the T6-7 intervertebral disc. The most common cause for air in the disc is vac uum phenomenon from degenerative change. Diskitis/osteomyelitis is much less likely. There are compre ssion fractures in the thoracic spine. 3. Right thyroid mass. Thyroid ultrasound is recommended for further evaluation.
[2019-06-26] MEDS: Torsemide 20 MG TAB PO SCH ×2 (09:26→16:41)
[2019-06-26] MEDS: Amlodipine 10 MG TAB PO SCH (09:26)
[2019-06-26] MEDS: Aspirin 81 mg Enteric Coated Tablet PO SCH (09:26)
[2019-06-26] MEDS: Lisinopril 10 MG TAB PO SCH (09:26)
[2019-06-26] MEDS ORDERED: hydrALAZINE 20 MG/ML VIAL ONE (11:14)
[2019-06-26] MEDS ORDERED: hydrALAZINE 20 MG/ML VIAL SLOW IVP SCH (11:30)
[2019-06-26 11:41] LABS: Base Excess (BEa) -6.8 mEq/L (-2.0 to +3.0); CO2 Tension 44.9 mmHg (35.0-45.0); Calcium, Ionized 1.22 mmol/L (1.12-1.30); Carboxyhemoglobin (COHb) 1.1 gm% (0.0-3.0); Hemoglobin (Hb) 13.7 g/dL (14.0-18.0); Potassium - ABG Lab 4.62 mmol/L (3.70-5.30); pH, Arterial 7.27 (7.35-7.45)
[2019-06-26 11:51] LABS: ALV-art Gradient 135.555 (0-20); Puncture Site RRA
[2019-06-26 12:18] LABS: Anion Gap 17 mmol/L (10-20); BUN (Urea Nitrogen) 15 mg/dL (8.4-25.7); Calc. Creatinine Clearance 83 mL/min (70-130); Calcium 9.6 mg/dL (7.8-10.44); Carbon Dioxide 18 mmol/L (23-31); Chloride 103 mmol/L (98-107); Estimated GFR-MDRD 84; Glucose 254 mg/dL (83-110); Sodium 133 mmol/L (136-145)
[2019-06-26 12:25] LABS: Troponin I 0.013 ng/mL (< 0.028)
[2019-06-26] MEDS ORDERED: methylPREDNISolone Sod Succ/PF 125 MG/2 ML VIAL IVP SCH (12:30)
[2019-06-26] MEDS ORDERED: Lorazepam 2 MG/ML VIAL SLOW IVP SCH (12:30)
[2019-06-26] MEDS: Atorvastatin Calcium 20 MG TAB PO SCH (20:13)
[2019-06-27] MEDS: Albuterol 200 PUFF (6.7GM INHALER) INH SCH ×4 (00:58→20:00)
[2019-06-27] MEDS ORDERED: cefTRIAXone\\ROCEPHIN 2 GM in Sodium Chloride 0.9% 100 ML IVPB SCH (01:00)
[2019-06-27] MEDS: Ondansetron PF 4 MG/2 ML Vial IVP PRN (05:29)
[2019-06-27] MEDS: HumaLOG 300 UNITS/3 ML VIAL SC PRN ×4 (06:12→21:21)
--- NOTE | 2019-06-27 06:53 | PDOC.FM ---
- Subjective Subjective: NAEO. Nursing states he did well overnight. He reports that he is feeling better today but he did have an episode of vomiting earlier this morning. - Objective MAR Reviewed: Yes Vital Signs & Weight: Vital Signs (12 hours) Temp Pulse Resp BP BP Pulse Ox 06/27/19 04:22 98.1 F 79 18 133/68 95 06/27/19 01:06 97 06/27/19 00:05 97 06/26/19 23:16 98.6 F 82 20 131/72 99 06/26/19 20:16 97 06/26/19 20:14 71 24 H 97 06/26/19 19:37 97.7 F 72 22 H 134/75 98 Weight Weight 79.861 kg I&O: 06/25/19 06/26/19 06/27/19 06:59 06:59 06:59 Intake Total 480 Output Total 1625 Balance -1145 Result Diagrams: 06/27/19 07:18 06/27/19 07:18 Phys Exam - Physical Examination Constitutional: NAD HEENT: moist MMs Neck: no JVD Rhonchi heard at left lower lobe, good air movement Cardiovascular: RRR, no significant murmur Gastrointestinal: soft, non-tender, no distention, positive bowel sounds Musculoskeletal: no edema, pulses present Neurological: moves all 4 limbs Psychiatric: A&O x 3 Skin: cap refill <2 seconds Dx/Plan (1) Acute and chronic respiratory failure with hypoxia Code(s): J96.21 - ACUTE AND CHRONIC RESPIRATORY FAILURE WITH HYPOXIA Status: Acute (2) COPD exacerbation Code(s): J44.1 - CHRONIC OBSTRUCTIVE PULMONARY DISEASE W (ACUTE) EXACERBATION Status: Acute (3) Congestive heart failure (CHF) Code(s): I50.9 - HEART FAILURE, UNSPECIFIED Status: Acute Qualifiers: Heart failure type: systolic Heart failure chronicity: chronic Qualified Code(s): I50.22 - Chronic systolic (congestive) heart failure (4) Atrial fibrillation Code(s): I48.91 - UNSPECIFIED ATRIAL FIBRILLATION Status: Chronic Qualifiers: Atrial fibrillation type: paroxysmal Qualified Code(s): I48.0 - Paroxysmal atrial fibrillation (5) CAD (coronary artery disease) Code(s): I25.10 - ATHSCL HEART DISEASE OF [place] CORONARY ARTERY W/O ANG PCTRS Status: Chronic Qualifiers: Associated angina: without angina (6) COPD (chronic obstructive pulmonary disease) Status: Chronic - Plan Plan: This is a 74 yo male with a pmh of COPD, HTN, HFrEF, DM2 Yesterday we were called to his room for acute SOB. He received albuterol inhaler, high flow NC, and ativan which improved his breathing. A wiggins was placed to decrease the amount of times he had to get up. Acute on chronic respiratory failure 2/2 COPD exacerabtion with multilobar PNA -Continue high flow NC, repeat CXR this AM -COVID-19 negative, resp panel, flu negative -Procal negative -Albuterol inhaler jefferson and PRN -Home Dulera -Continue azithromycin -Will likely move to the medical floor today HFrEF w/pacer -Echo 11/24 shows EF of 30-35 -No signs of fluid overload Thoracic spine abnormality appears to be chronic and unchanged from previous CTs HTN -Continue home meds, PRN as needed HLD -Continue home meds DM2 -Accuchecks -Mild SSI NURY -Refusing CPAP Chronic anticoagulation -INR subtherapeutic -Will monitor Addendum - Attending - Attending Attestation Date/Time: 06/27/19 7040 I personally evaluated the patient and discussed the management with Dr. Santoyo I agree with the History, Examination, Assessment and Plan documented above with any addition or exceptions noted below. COVID negative. Respiratory status improving. will attempt to wean off HFNC today. Will move off COVID unit. d/c still 2-3 days away. continue abx. repeat procal.
[2019-06-27] MEDS: Mometasone 100 MCG/Formoterol 5 MCG 120 PUFF INHALER INH SCH ×2 (07:14→19:01)
[2019-06-27 07:46] LABS: #Lymphocytes 0.9 thou/uL (1.20-3.40); #Monocytes 1.5 thou/uL (0.11-0.59); #Neutrophils 15.4 thou/uL (1.40-6.50); %Eosinophils 0.2 % (0.0-10.0); %Lymphocytes 4.8 % (21.0-51.0); %Monocytes 8.5 % (0.0-10.0); %Neutrophils 86.5 % (42.0-75.0); Hemoglobin 12.2 g/dL (14.0-18.0); Mean Corpuscular HGB CONC 31.5 g/dL (32.0-36.0); Mean Corpuscular Hemoglobin 26.8 pg (27.0-31.0); Mean Corpuscular Volume 85.2 fL (78.0-98.0); Platelet Count 192 thou/uL (130-400); RBC Distribution Width 17.4 % (11.5-14.5); Red Blood Cell (RBC) Count 4.56 mill/uL (4.70-6.10); White Blood Cell (WBC) Count 17.7 thou/uL (4.8-10.8)
[2019-06-27 07:59] LABS: ALT (SGPT) 24 U/L (8-55); AST (SGOT) 16 U/L (5-34); Albumin 4.2 g/dL (3.4-4.8); Alkaline Phosphatase 85 U/L (40-110); Anion Gap 14 mmol/L (10-20); BUN (Urea Nitrogen) 25 mg/dL (8.4-25.7); Bilirubin, Total 1.1 mg/dL (0.2-1.2); Calc. Creatinine Clearance 70 mL/min (70-130); Calcium 9.7 mg/dL (7.8-10.44); Carbon Dioxide 27 mmol/L (23-31); Chloride 99 mmol/L (98-107); Estimated GFR-MDRD 72; Globulin 2.4 g/dL (2.4-3.5); Glucose 245 mg/dL (83-110); Potassium 4.3 mmol/L (3.5-5.1); Protein, Total 6.6 g/dL (5.8-8.1); Sodium 136 mmol/L (136-145)
--- NOTE | 2019-06-27 08:13 | RAD ---
EXAM: CHEST ONE VIEW HISTORY: Shortness of breath COMPARISON: 06/25/2019 FINDINGS: Triple lead left subclavian cardiac pacemaking device remains in place. The cardiac silhouette is mag nified by projection stable in size. Linear increased densities are seen in the right upper lung zone which may relate to mild scarring. There has been interval increase in confluent opacity at the right lung base likely due to combination of small right pleural effusion as well as infiltrate/pneumonia. Patchy parenchymal densities at the left lung base have improved. No consolidat ion or pleural fluid is seen on the left. Vertebroplasty changes are seen in a mid thoracic vertebral body. Vascular calcifications are seen in the thoracic aorta. Other change. IMPRESSION: 1. Interval increase in confluent opacity at the right lung base likely related to pneumonia with ass ociated small right pleural effusion. Follow-up to resolution is recommended. 2. Improved aeration at the left lung base.
[2019-06-27] MEDS ORDERED: Insulin Glargine 10 UNITS in Pre-Filled Syringe 1 EACH SC SCH (09:00)
[2019-06-27] MEDS: Lisinopril 10 MG TAB PO SCH (09:06)
[2019-06-27] MEDS: Aspirin 81 mg Enteric Coated Tablet PO SCH (09:06)
[2019-06-27] MEDS: Amlodipine 10 MG TAB PO SCH (09:07)
[2019-06-27] MEDS: predniSONE 50 MG TAB PO SCH (09:07)
[2019-06-27] MEDS: Azithromycin 250 MG TAB PO SCH (09:07)
[2019-06-27] MEDS: Torsemide 20 MG TAB PO SCH ×2 (09:08→14:33)
[2019-06-27] MEDS: Atorvastatin Calcium 20 MG TAB PO SCH (20:31)
[2019-06-28] MEDS: Albuterol 200 PUFF (6.7GM INHALER) INH SCH ×5 (00:20→23:04)
[2019-06-28] MEDS: HumaLOG 300 UNITS/3 ML VIAL SC PRN ×3 (06:41→22:47)
[2019-06-28] MEDS: Mometasone 100 MCG/Formoterol 5 MCG 120 PUFF INHALER INH SCH ×2 (06:44→18:50)
--- NOTE | 2019-06-28 06:50 | PDOC.FM ---
- Subjective Subjective: Reports some nausea this am. He states his breathing is improved and denies chest pain. - Objective MAR Reviewed: Yes Vital Signs & Weight: Vital Signs (12 hours) Temp Pulse Resp BP Pulse Ox 06/28/19 03:00 98.1 F 71 23 H 126/68 93 L 06/28/19 01:01 94 L 06/28/19 00:00 93 L 06/27/19 23:00 98.2 F 76 23 H 117/63 93 L 06/27/19 20:00 97 06/27/19 19:30 98.6 F 79 22 H 108/57 L 97 06/27/19 19:07 94 L 06/27/19 19:01 71 22 H 94 L Weight Weight 79.861 kg I&O: 06/26/19 06/27/19 06/28/19 06:59 06:59 06:59 Intake Total 480 840 Output Total 2675 1000 Balance -2195 -160 Result Diagrams: 06/28/19 07:01 06/28/19 07:01 Phys Exam - Physical Examination Constitutional: NAD HEENT: moist MMs Neck: no JVD Respiratory: wheezing present (improving) Cardiovascular: RRR, no significant murmur Gastrointestinal: soft, no distention, positive bowel sounds mild ttp Musculoskeletal: no edema, pulses present Neurological: moves all 4 limbs Psychiatric: A&O x 3 Skin: cap refill <2 seconds Dx/Plan (1) Acute and chronic respiratory failure with hypoxia Code(s): J96.21 - ACUTE AND CHRONIC RESPIRATORY FAILURE WITH HYPOXIA Status: Acute (2) COPD exacerbation Code(s): J44.1 - CHRONIC OBSTRUCTIVE PULMONARY DISEASE W (ACUTE) EXACERBATION Status: Acute (3) Congestive heart failure (CHF) Code(s): I50.9 - HEART FAILURE, UNSPECIFIED Status: Acute Qualifiers: Heart failure type: systolic Heart failure chronicity: chronic Qualified Code(s): I50.22 - Chronic systolic (congestive) heart failure (4) Atrial fibrillation Code(s): I48.91 - UNSPECIFIED ATRIAL FIBRILLATION Status: Chronic Qualifiers: Atrial fibrillation type: paroxysmal Qualified Code(s): I48.0 - Paroxysmal atrial fibrillation (5) CAD (coronary artery disease) Code(s): I25.10 - ATHSCL HEART DISEASE OF [place] CORONARY ARTERY W/O ANG PCTRS Status: Chronic Qualifiers: Associated angina: without angina (6) COPD (chronic obstructive pulmonary disease) Status: Chronic - Plan Plan: This is a 74 yo male with a pmh of COPD, HTN, HFrEF, DM2 Acute on chronic respiratory failure 2/2 COPD exacerabtion with multilobar PNA -Continue high flow NC, weaning -COVID-19 negative, resp panel, flu negative -Procal negative -Albuterol inhaler jefferson and PRN -Home Dulera -Continue azithromycin -Will likely move to the medical floor today HFrEF w/pacer -Echo 11/24 shows EF of 30-35 -No signs of fluid overload Thoracic spine abnormality appears to be chronic and unchanged from previous CTs HTN -Continue home meds, PRN as needed HLD -Continue home meds DM2 -Accuchecks -Mild SSI -Adding lantus for sugar control on steroids NURY -high flow NC Chronic anticoagulation -INR subtherapeutic -Will monitor Addendum - Attending - Attending Attestation Date/Time: 06/28/19 4733 I personally evaluated the patient and discussed the management with Dr. Roman. I agree with the History, Examination, Assessment and Plan documented above with any addition or exceptions noted below. Attempting to wean HFNC. Will order long steroid taper. Calling PCP to discuss fpc anticoagulation. Med rec does not show warfarin. If still requiring HFNC tomorrow, will consider pulmonology consultation. Patient states he sees Dr. Jiménez.
[2019-06-28 07:19] LABS: #Basophils 0.1 thou/uL (0.0-0.2); #Eosinphils 0.1 thou/uL (0.0-0.7); #Lymphocytes 1.6 thou/uL (1.20-3.40); #Monocytes 1.9 thou/uL (0.11-0.59); #Neutrophils 14.3 thou/uL (1.40-6.50); %Basophils 0.3 % (0.0-1.0); %Eosinophils 0.5 % (0.0-10.0); %Lymphocytes 9.1 % (21.0-51.0); %Monocytes 10.5 % (0.0-10.0); %Neutrophils 79.5 % (42.0-75.0); Hemoglobin 12.6 g/dL (14.0-18.0); Mean Corpuscular HGB CONC 32.6 g/dL (32.0-36.0); Mean Corpuscular Hemoglobin 27.6 pg (27.0-31.0); Mean Corpuscular Volume 84.7 fL (78.0-98.0); Mean Platelet Volume 10.4 fL (7.4-10.4); Platelet Count 185 thou/uL (130-400); RBC Distribution Width 17.4 % (11.5-14.5); Red Blood Cell (RBC) Count 4.58 mill/uL (4.70-6.10)
[2019-06-28 07:41] LABS: ALT (SGPT) 23 U/L (8-55); AST (SGOT) 17 U/L (5-34); Albumin 4.1 g/dL (3.4-4.8); Alkaline Phosphatase 80 U/L (40-110); Anion Gap 13 mmol/L (10-20); BUN (Urea Nitrogen) 35 mg/dL (8.4-25.7); Bilirubin, Total 0.9 mg/dL (0.2-1.2); Calc. Creatinine Clearance 69 mL/min (70-130); Calcium 9.4 mg/dL (7.8-10.44); Carbon Dioxide 28 mmol/L (23-31); Chloride 100 mmol/L (98-107); Estimated GFR-MDRD 70; Globulin 2.7 g/dL (2.4-3.5); Glucose 217 mg/dL (83-110); Potassium 3.9 mmol/L (3.5-5.1); Protein, Total 6.8 g/dL (5.8-8.1); Sodium 137 mmol/L (136-145)
[2019-06-28] MEDS ORDERED: Insulin Glargine 14 UNITS in Pre-Filled Syringe 1 EACH SC SCH (09:00)
[2019-06-28] MEDS: Torsemide 20 MG TAB PO SCH ×2 (10:41→15:06)
[2019-06-28] MEDS: Ondansetron PF 4 MG/2 ML Vial IVP PRN ×2 (11:50→23:35)
[2019-06-28] MEDS: Aspirin 81 mg Enteric Coated Tablet PO SCH (11:51)
[2019-06-28] MEDS: predniSONE 50 MG TAB PO SCH (11:51)
[2019-06-28] MEDS: Amlodipine 10 MG TAB PO SCH (11:51)
[2019-06-28] MEDS: Azithromycin 250 MG TAB PO SCH (11:51)
[2019-06-28] MEDS: Lisinopril 10 MG TAB PO SCH (11:51)
[2019-06-28] MEDS ORDERED: Promethazine HCl 25 MG/ML VIAL IM/IV PRN (14:15)
[2019-06-28] MEDS: Promethazine HCl 12.5 MG in Sodium Chloride 0.9% 50 ML IVPB PRN ×2 (17:51→22:15)
[2019-06-28] MEDS: Atorvastatin Calcium 20 MG TAB PO SCH (20:21)
[2019-06-28] MEDS: Apixaban 5 MG TAB PO SCH (20:21)
[2019-06-29] MEDS: HumaLOG 300 UNITS/3 ML VIAL SC PRN ×4 (06:19→21:34)
--- NOTE | 2019-06-29 06:59 | PDOC.FM ---
- Subjective Subjective: Reports he ate breakfast this morning. He does endorse some nausea earlier this AM that was treated effectively with medicine. He reports his breathing is good. - Objective MAR Reviewed: Yes Vital Signs & Weight: Vital Signs (12 hours) Temp Pulse Resp BP BP Pulse Ox 06/29/19 04:35 73 169/83 H 06/29/19 03:05 98.4 F 71 16 190/92 H 91 L 06/28/19 23:40 98.5 F 71 20 176/82 H 95 06/28/19 19:23 98.5 F 72 20 164/82 H 97 Weight Weight 79.861 kg I&O: 06/27/19 06/28/19 06/29/19 06:59 06:59 06:59 Intake Total 480 840 322 Output Total 2675 1000 340 Balance -2195 -160 -18 Result Diagrams: 06/28/19 07:01 06/28/19 07:01 Phys Exam - Physical Examination Constitutional: NAD HEENT: moist MMs Neck: no JVD Improving air movement Cardiovascular: RRR, no significant murmur Gastrointestinal: soft, no distention, positive bowel sounds Musculoskeletal: no edema, pulses present Neurological: moves all 4 limbs Psychiatric: A&O x 3 Skin: cap refill <2 seconds Dx/Plan (1) Acute and chronic respiratory failure with hypoxia Code(s): J96.21 - ACUTE AND CHRONIC RESPIRATORY FAILURE WITH HYPOXIA Status: Acute (2) COPD exacerbation Code(s): J44.1 - CHRONIC OBSTRUCTIVE PULMONARY DISEASE W (ACUTE) EXACERBATION Status: Acute (3) Congestive heart failure (CHF) Code(s): I50.9 - HEART FAILURE, UNSPECIFIED Status: Acute Qualifiers: Heart failure type: systolic Heart failure chronicity: chronic Qualified Code(s): I50.22 - Chronic systolic (congestive) heart failure (4) Atrial fibrillation Code(s): I48.91 - UNSPECIFIED ATRIAL FIBRILLATION Status: Chronic Qualifiers: Atrial fibrillation type: paroxysmal Qualified Code(s): I48.0 - Paroxysmal atrial fibrillation (5) CAD (coronary artery disease) Code(s): I25.10 - ATHSCL HEART DISEASE OF [place] CORONARY ARTERY W/O ANG PCTRS Status: Chronic Qualifiers: Associated angina: without angina (6) COPD (chronic obstructive pulmonary disease) Status: Chronic - Plan Plan: This is a 74 yo male with a pmh of COPD, HTN, HFrEF, DM2 Acute on chronic respiratory failure 2/2 COPD exacerabtion with multilobar PNA -Continue high flow NC, weaning -COVID-19 negative, resp panel, flu negative -Procal negative -Albuterol inhaler jefferson and PRN -Home Dulera -Continue azithromycin -Will likely move to the medical floor HFrEF w/pacer -Echo 11/24 shows EF of 30-35 -No signs of fluid overload N/V -Maybe a result of the HFNC -Zofran and phenergan PRN Thoracic spine abnormality appears to be chronic and unchanged from previous CTs HTN -Continue home meds, PRN as needed HLD -Continue home meds DM2 -Accuchecks -Mild SSI -Adding lantus for sugar control on steroids NURY -high flow NC Chronic anticoagulation -Confirmed that pt has been on eliquis for anticoagulation, restarting today Addendum - Attending - Attending Attestation Date/Time: 06/29/19 4519 I personally evaluated the patient and discussed the management with Dr. Roman. I agree with the History, Examination, Assessment and Plan documented above with any addition or exceptions noted below. Slowly weaning off HFNC. unable to tolerate PO yesterday so switching to IV steroids until N/V resolve.
[2019-06-29] MEDS: Albuterol 200 PUFF (6.7GM INHALER) INH SCH ×4 (07:24→23:27)
[2019-06-29] MEDS: Mometasone 100 MCG/Formoterol 5 MCG 120 PUFF INHALER INH SCH ×2 (07:27→18:47)
[2019-06-29] MEDS: Azithromycin 250 MG TAB PO SCH (08:59)
[2019-06-29] MEDS: predniSONE 50 MG TAB PO SCH (08:59)
[2019-06-29] MEDS: Amlodipine 10 MG TAB PO SCH (09:00)
[2019-06-29] MEDS: Ondansetron PF 4 MG/2 ML Vial IVP PRN (09:00)
[2019-06-29] MEDS: Lisinopril 10 MG TAB PO SCH (09:00)
[2019-06-29] MEDS: Insulin Glargine 18 UNITS in Pre-Filled Syringe 1 EACH SC SCH (09:00)
[2019-06-29] MEDS: Apixaban 5 MG TAB PO SCH ×2 (09:00→20:03)
[2019-06-29] MEDS: Aspirin 81 mg Enteric Coated Tablet PO SCH (09:00)
[2019-06-29] MEDS: Torsemide 20 MG TAB PO SCH (09:06)
--- NOTE | 2019-06-29 15:57 | PQF ---
CLINICAL DOCUMENTATION IMPROVEMENT CLARIFICATION FORM: ICD-10 Updated PLEASE DO AN ADDENDUM TO THE PROGRESS NOTE WITH ANY DOCUMENTATION UPDATES OR ADDITIONS AND CARRY THROUGH TO DC SUMMARY. THANK YOU. DATE: 06/29/2019 ATTN: Dr. Roman;/ Attending Dr. Moreno 06/30/2019 Dr. Moy Please exercise your independent, professional judgment in responding to the clarification form. Clinical indicators are provided on the bottom of this form for your review Please check appropriate box(es): [ X ] Sepsis present on admission [ ] Sepsis NOT present on admission [ ] Unable to determine Due to: _pneumonia [ ] Severe sepsis present on admission [ ] Severe Sepsis NOT present on admission [ ] Unable to determine with acute organ dysfunction of: [ ] Localized infection without sepsis [ ] Other diagnosis [ ] Unable to determine For continuity of documentation, please document condition throughout progress notes and discharge summary. Thank You. CLINICAL INDICATORS - SIGNS / SYMPTOMS / LABS / RESULTS AND LOCATION IN MR H&P 06/25: VS: BP 312/110, HR 71, RR 20, Tmax 98.2 Pox 100% on 4L nc Lab: WBC 15.2 Lactic Acid 2.0 Acute and Chronic Resp Failure 2/2 COPD exacerbation and Multilobar PNA CXR and CT scan show multilobar PNA Attending: ABG show possible metabolic acidosis with lower end of normal for pO2. RISKS: H&P 06/25: PMHx: COPD on 2L at home, Chronic Systolic HF, A Fib. DM 2. Plan: Acute and Chronic Resp Failure 2/2 COPD exacerbation and Multilobar PNA TREATMENT: MAR: Order 06/25: Azithromycin 250 mg po daily H&P 06/25: Attending: High flow nasal cannula started. Thank you, Nora (This form is maintained as a part of the permanent medical record) 2014 [employer]. All Rights Reserved Nora Ibanez RN, BSN [email or web address]
[2019-06-29] MEDS: metFORMIN 500 MG TAB PO SCH (16:24)
[2019-06-29] MEDS: Atorvastatin Calcium 20 MG TAB PO SCH (20:03)
[2019-06-30] MEDS: HumaLOG 300 UNITS/3 ML VIAL SC PRN ×2 (06:03→11:15)
[2019-06-30] MEDS: Mometasone 100 MCG/Formoterol 5 MCG 120 PUFF INHALER INH SCH (06:55)
[2019-06-30] MEDS: Albuterol 200 PUFF (6.7GM INHALER) INH SCH ×2 (06:55→12:21)
--- NOTE | 2019-06-30 07:22 | PDOC.FM ---
- Subjective Subjective: Patient resting comfortably in bed this morning. He has been comfortable with stable O2 sats at home O2 requirement overnight (2L via N/C). States his cough and breathing have improved. Denies any SOB or chest pain. Feels ready to go home. Says he lives at [facility] [place] and has an aide that comes daily to help him. - Objective MAR Reviewed: Yes Vital Signs & Weight: Vital Signs (12 hours) Temp Pulse Resp BP BP BP Pulse Ox 06/30/19 07:15 97.9 F 75 18 172/77 H 96 06/30/19 06:55 71 18 95 06/30/19 04:00 97.6 F 71 20 155/83 H 92 L 06/29/19 22:30 97.7 F 74 20 154/77 H 95 06/29/19 20:01 98.1 F 75 20 135/77 95 Weight Weight 79.861 kg I&O: 06/29/19 06/30/19 07/01/19 06:59 06:59 06:59 Intake Total 322 480 Output Total 340 1625 Balance -18 -1145 Result Diagrams: 06/28/19 07:01 06/28/19 07:01 Phys Exam - Physical Examination Constitutional: NAD HEENT: moist MMs, sclera anicteric Neck: no JVD, supple, full ROM Respiratory: no wheezing, clear to auscultation bilateral Cardiovascular: RRR, no significant murmur Gastrointestinal: positive bowel sounds Musculoskeletal: no edema, pulses present Neurological: normal sensation, moves all 4 limbs Psychiatric: normal affect, A&O x 3 Skin: no rash, normal turgor Dx/Plan (1) Acute on chronic respiratory failure with hypoxemia Code(s): J96.21 - ACUTE AND CHRONIC RESPIRATORY FAILURE WITH HYPOXIA Status: Acute (2) COPD exacerbation Code(s): J44.1 - CHRONIC OBSTRUCTIVE PULMONARY DISEASE W (ACUTE) EXACERBATION Status: Acute (3) Congestive heart failure (CHF) Code(s): I50.9 - HEART FAILURE, UNSPECIFIED Status: Acute Qualifiers: Heart failure type: systolic Heart failure chronicity: chronic Qualified Code(s): I50.22 - Chronic systolic (congestive) heart failure (4) Atrial fibrillation Code(s): I48.91 - UNSPECIFIED ATRIAL FIBRILLATION Status: Chronic Qualifiers: Atrial fibrillation type: paroxysmal Qualified Code(s): I48.0 - Paroxysmal atrial fibrillation - Plan Plan: This is a 74 yo male with a pmh of COPD, HTN, HFrEF, DM2 #Acute on chronic respiratory failure 2/2 COPD exacerabtion with multilobar PNA -Continue high flow NC, weaning down with transition to 2L N/C on 06/28 evening -COVID-19 negative, resp panel, flu negative -Procal negative -Albuterol inhaler jefferson and PRN -Home Dulera -Continue azithromycin for 5 day course -continue Prednisone, will need long steroid taper upon discharge #HFrEF w/pacer -Echo 11/24 shows EF of 30-35 -No signs of fluid overload #N/V -Maybe a result of the HFNC -Zofran and phenergan PRN #Thoracic spine abnormality appears to be chronic and unchanged from previous CTs #HTN -Continue home meds, PRN as needed #HLD -Continue home meds #DM2 -likely elevated during this admission 2/2 steroid use -Accuchecks -Mild SSI -Adding lantus for sugar control on steroids #NURY -high flow NC now on 2L N/C #Chronic anticoagulation -Confirmed that pt has been on eliquis for anticoagulation, restarting 06/28 Diet: HH VTE: Eliquis Code status: Cardiac only, DNI Dispo: Stable, respiratory status improving. Anticipate discharge home later today or tomorrow afternoon. Addendum - Attending - Attending Attestation Date/Time: 06/30/19 5756 I personally evaluated the patient and discussed the management with Dr. Moy. I agree with the History, Examination, Assessment and Plan documented above with any addition or exceptions noted below. resp status at baseline. long steroid taper then d/c home.
[2019-06-30] MEDS ORDERED: Spironolactone 25 MG TAB PO SCH (08:00)
[2019-06-30] MEDS: metFORMIN 500 MG TAB PO SCH (08:20)
[2019-06-30] MEDS: Apixaban 5 MG TAB PO SCH (08:20)
[2019-06-30] MEDS: Amlodipine 10 MG TAB PO SCH (08:20)
[2019-06-30] MEDS: predniSONE 50 MG TAB PO SCH (08:20)
[2019-06-30] MEDS: Aspirin 81 mg Enteric Coated Tablet PO SCH (08:21)
[2019-06-30] MEDS: Insulin Glargine 18 UNITS in Pre-Filled Syringe 1 EACH SC SCH (08:21)
[2019-06-30] MEDS: Azithromycin 250 MG TAB PO SCH (08:21)
[2019-06-30] MEDS ORDERED: Torsemide 20 MG TAB PO SCH (09:00)
[2019-06-30] MEDS ORDERED: Lisinopril 10 MG TAB PO SCH (09:00)
[2019-06-30 12:17] VITALS: BP 124/79; TEMP 97.6
--- NOTE | 2019-07-01 02:29 | DIS ---
DATE OF ADMISSION: 06/26/2019 DATE OF DISCHARGE: 06/30/2019 RESIDENT: Celine Moy DO ADMITTING ATTENDING: Felipe Moreno MD DISCHARGE ATTENDING: Felipe Moreno MD CONSULTS: 1. Case Management. 2. Physical Therapy. PROCEDURES: 1. Chest x-ray on June 25, 2019: Findings concerning for multifocal lower lobe pneumonia. Linear scar in the right upper lobe, chronic. 2. Chest CT on June 25, 2019: Small bilateral pleural effusions. Trace infiltrates are seen in the right lower lobe, left lower lobe, and right upper lobe suggesting early pneumonia. Coronavirus is in the differential. Right-sided thyroid mass measuring 3.8 x 3.8 cm with low density. Follow up with thyroid ultrasound. Moderate disk space narrowing, and osteophyte formation of the thoracic spine is seen at multiple levels. A chronic compression deformity of C6 is seen with a loss of height of approximately 20% to 30%. 3. Chest x-ray on June 27, 2019: Interval increase in confluent opacity at the right lung base likely light related to pneumonia with associated small right pleural effusion. Followup to resolution recommended. Improved aeration at the left lung base. PRIMARY DIAGNOSIS: Acute on chronic respiratory failure secondary to chronic obstructive pulmonary disease exacerbation with multilobar pneumonia. SECONDARY DIAGNOSES: 1. COVID rule out. 2. Heart failure with reduced ejection fraction, pacemaker in place. 3. Nausea and vomiting. 4. Chronic thoracic spine abnormality, unchanged from previous CTs. 5. Hypertension. 6. Hyperlipidemia. 7. Type 2 diabetes. 8. Obstructive sleep apnea. 9. Chronic anticoagulation. DISCHARGE MEDICATIONS: 1. Albuterol sulfate inhaler two puffs inhaled q.4 hours p.r.n. 2. Eliquis 5 mg p.o. b.i.d. 3. Insulin glargine 18 units subcu q.a.m. 4. Prednisone 50 mg p.o. daily for 3 additional days. 5. Prednisone 40 mg p.o. daily for 4 days, starting on July 04, 2019. 6. Prednisone 30 mg p.o. daily for 4 days, starting on July 08, 2019. 7. Prednisone 20 mg p.o. daily for 4 days, starting on July 12, 2019. 8. Prednisone 10 mg p.o. daily for 4 days, starting on July 16, 2019. 9. DuoNeb 3 mL nebulized q.4 hours p.r.n. for shortness of breath or wheezing. 10. Spiriva 18 mcg inhaled daily. 11. Metoprolol succinate 100 mg p.o. daily. 12. Spironolactone 25 mg p.o. daily. 13. Torsemide 40 mg p.o. daily. 14. Multivitamin 1 tablet daily. 15. Glipizide 5 mg p.o. daily. 16. Trazodone 50 mg p.o. at bedtime p.r.n. for insomnia. 17. Amlodipine 10 mg p.o. daily. 18. Lisinopril 10 mg p.o. daily. 19. Aspirin 81 mg p.o. daily. 20. Metformin 500 mg p.o. b.i.d. 21. Atorvastatin 20 mg p.o. at bedtime. 22. Cetirizine 10 mg p.o. daily. 23. Symbicort two puffs inhaled b.i.d. DISCONTINUED MEDICATIONS: None. HISTORY OF PRESENT ILLNESS/HOSPITAL COURSE: The patient is a 74-year-old male who comes in with a chief complaint of shortness of breath. He has a past medical history of COPD, usually is on 2 L of home O2 during the day and 4 L of O2 at night via nasal cannula. Also has a history of CHF with an ejection fraction on echo in November 2018 of 30% to 35%. The patient reports earlier today he had a brief episode of shortness of breath that improved with his home nebulizer. He states he was then getting up from dinner and again got short of breath to the point where he almost fell to the floor. He states he took his home nebulizer again, but it did not get any better. He reports having a cough, but states that it is about the same as normal. Denies any fever, chills, nasal congestion. He initially reported having some left-sided chest pain, but did not radiate anywhere. This pain only lasted a few seconds and then went away. The patient denies any recent sick contacts. The patient is on Coumadin. Reports taking 10 mg daily. States had INR checked a few weeks ago. Reports he takes Eliquis for clots in his legs. In the emergency department, he was given prednisone, albuterol nebulizer, Rocephin, and azithromycin. CT of the chest and chest x-ray were completed with results as above. The patient was admitted to the floor with acute on chronic respiratory failure secondary to suspected COPD exacerbation with multilobar pneumonia. The patient had a COVID swab that was taken in the ED, this later resulted as negative. A respiratory viral panel and flu panel were also negative. The patient was continued on DuoNeb scheduled treatments, Rocephin, and azithromycin. Throughout the following day, the patient's respiratory status remained about the same. On midday, June 27, 2019, the patient had an episode of acute respiratory distress, which required high-flow nasal cannula to be placed. Later in the day that day, he had his COVID swab result as negative. The patient continued to remain on high-flow oxygen until the afternoon of June 29, 2019, at which point, he was transitioned over to 2 L of oxygen via nasal cannula, which is his home baseline dose. On the morning of June 30, 2019, the patient was clinically back to his baseline respiratory status. He stated he felt much better. The patient was deemed clinically stable for discharge home at this time. He will be discharged home on a long steroid taper as outlined in his discharge medication list. He will also need to continue DuoNeb and azithromycin. Case Management was also able to arrange for outpatient physical therapy to see the patient. DISPOSITION: Stable. DISCHARGE INSTRUCTIONS: 1. Location: [facility]. 2. Diet: Heart healthy. 3. Activity: As tolerated. 4. Followup: [facility] for hospital followup. Job ID: [id number] MTDD
== END 2019-06-30 14:11 | disposition home health service (06) | DRG 871 ==
LOC: ERS 22:48 → 2SW 06-26 01:41 → T4-A 06-29 22:09
PROVIDERS: ADMIT Family Medicine; ATTEND Family Medicine
PROC: 8E0ZXY6 Isolation (ICD-10-PCS; principal; 2019-06-26)
DX: A41.9 Sepsis, unspecified organism (principal); J18.9 Pneumonia, unspecified organism; J96.21 Acute and chronic respiratory failure with hypoxia; J44.0 Chronic obstructive pulmonary disease with (acute) lower respiratory infection; I50.22 Chronic systolic (congestive) heart failure; E87.2 Acidosis; J44.1 Chronic obstructive pulmonary disease with (acute) exacerbation; E11.9 Type 2 diabetes mellitus without complications; F41.9 Anxiety disorder, unspecified; I11.0 Hypertensive heart disease with heart failure; E78.5 Hyperlipidemia, unspecified; Z66 Do not resuscitate; Z20.828 Contact with and (suspected) exposure to other viral communicable diseases; I48.0 Paroxysmal atrial fibrillation; G47.33 Obstructive sleep apnea (adult) (pediatric); I25.10 Atherosclerotic heart disease of native coronary artery without angina pectoris; G47.00 Insomnia, unspecified; Z99.89 Dependence on other enabling machines and devices; Z87.891 Personal history of nicotine dependence; Z79.84 Long term (current) use of oral hypoglycemic drugs; Z79.51 Long term (current) use of inhaled steroids; Z79.899 Other long term (current) drug therapy; Z79.01 Long term (current) use of anticoagulants; Z79.82 Long term (current) use of aspirin; Z99.81 Dependence on supplemental oxygen; Z86.718 Personal history of other venous thrombosis and embolism; Z95.0 Presence of cardiac pacemaker; Z95.5 Presence of coronary angioplasty implant and graft
CPT/HCPCS: 36415; 36416; 71045; 71250; 80053; 82805; 83605; 83615; 83880; 84145; 84484; 85025; 85379; 85610; 85652; 87040; 87633; 87635; 87804; 93005; 94664; 94760; 96365; 96366; 96367; J0360; J0456; J0696; J1815; J2060; J2405; J2550; J2930; J7512; J7611; Q0162; U0002

== ENCOUNTER 2019-09-14 23:56 | Emergency (ER) | payer MEDICARE, OTHER ==
[2019-09-15 00:27] LABS: #Eosinphils 0.1 thou/uL (0.0-0.7); #Lymphocytes 1.9 thou/uL (1.20-3.40); #Monocytes 1.6 thou/uL (0.11-0.59); #Neutrophils 12.7 thou/uL (1.40-6.50); %Basophils 0.1 % (0.0-1.0); %Eosinophils 0.5 % (0.0-10.0); %Lymphocytes 11.8 % (21.0-51.0); %Monocytes 9.6 % (0.0-10.0); Hemoglobin 12.1 g/dL (14.0-18.0); Mean Corpuscular HGB CONC 32.7 g/dL (32.0-36.0); Mean Corpuscular Hemoglobin 27.4 pg (27.0-31.0); Mean Corpuscular Volume 83.9 fL (78.0-98.0); Mean Platelet Volume 10.3 fL (7.4-10.4); Platelet Count 203 thou/uL (130-400); RBC Distribution Width 17.5 % (11.5-14.5); Red Blood Cell (RBC) Count 4.42 mill/uL (4.70-6.10); White Blood Cell (WBC) Count 16.3 thou/uL (4.8-10.8)
[2019-09-15 00:49] LABS: ALT (SGPT) 15 U/L (8-55); AST (SGOT) 13 U/L (5-34); Albumin 4.3 g/dL (3.4-4.8); Alkaline Phosphatase 74 U/L (40-110); Anion Gap 17 mmol/L (10-20); BUN (Urea Nitrogen) 30 mg/dL (8.4-25.7); Bilirubin, Total 0.6 mg/dL (0.2-1.2); Calc. Creatinine Clearance 0 mL/min (70-130); Calcium 9.1 mg/dL (7.8-10.44); Carbon Dioxide 23 mmol/L (23-31); Chloride 102 mmol/L (98-107); Estimated GFR-MDRD 59; Globulin 2.3 g/dL (2.4-3.5); Glucose 195 mg/dL (83-110); Potassium 4.5 mmol/L (3.5-5.1); Protein, Total 6.6 g/dL (5.8-8.1); Sodium 137 mmol/L (136-145)
[2019-09-15] MEDS ORDERED: Meclizine HCl 25 MG TAB ONE (02:29)
--- NOTE | 2019-09-15 07:39 | RAD ---
RADIOGRAPH CHEST 1 VIEW: DATE: 09/15/2019 TIME: 12:17 AM HISTORY: 74-year-old male with dyspnea COMPARISON: 09/12/2019 FINDINGS: Hyperinflation consistent with COPD. Left subclavian transvenous permanent pacemaker. Cardiac size at upper limits of normal. No large consolidation. Diffusely prominent interstitial markings. No pneumothorax. Prominent interstitial markings. No cardiomegaly. Pulmonary scar at right apex. The inf iltrate at the base of right lower lobe is is probably stable, certainly no worse. It may be chronic. No other potential interval change. IMPRESSION: 1) hyperinflation suggestive of emphysema. 2) mild infiltrate at right base may be chronic. 3) no new consolidation
[2019-09-15 14:46] LABS: SARS-CoV-2 MS2 Positive; SARS-CoV-2 N Gene Negative; SARS-CoV-2 S Gene Negative; SARS-CoV-2 orf1ab Negative
== END 2019-09-15 03:49 | disposition home or self-care (01) ==
LOC: ERS 23:56
DX: J18.9 Pneumonia, unspecified organism (principal); R42 Dizziness and giddiness; I49.9 Cardiac arrhythmia, unspecified; I48.91 Unspecified atrial fibrillation; I10 Essential (primary) hypertension; E11.9 Type 2 diabetes mellitus without complications; J44.9 Chronic obstructive pulmonary disease, unspecified; F41.9 Anxiety disorder, unspecified; Z87.891 Personal history of nicotine dependence; Z20.828 Contact with and (suspected) exposure to other viral communicable diseases; Z79.82 Long term (current) use of aspirin; Z79.51 Long term (current) use of inhaled steroids; Z79.899 Other long term (current) drug therapy; Z79.84 Long term (current) use of oral hypoglycemic drugs
CPT/HCPCS: 71045; 80053; 83880; 84484; 85025; 93005; 99285; U0003; 87635

== ENCOUNTER 2020-01-12 04:34 | Emergency (ER) | payer MEDICARE ==
[2020-01-12 05:09] LABS: #Basophils 0.1 thou/uL (0.0-0.2); #Eosinphils 0.2 thou/uL (0.0-0.7); #Lymphocytes 1.6 thou/uL (1.20-3.40); #Neutrophils 14.6 thou/uL (1.40-6.50); %Basophils 0.6 % (0.0-1.0); %Monocytes 5.7 % (0.0-10.0); %Neutrophils 83.7 % (42.0-75.0); Hemoglobin 13.8 g/dL (14.0-18.0); Mean Corpuscular HGB CONC 33.4 g/dL (32.0-36.0); Mean Corpuscular Hemoglobin 28.3 pg (27.0-31.0); Mean Corpuscular Volume 84.5 fL (78.0-98.0); Mean Platelet Volume 9.7 fL (7.4-10.4); Platelet Count 174 thou/uL (130-400); RBC Distribution Width 17.6 % (11.5-14.5); Red Blood Cell (RBC) Count 4.88 mill/uL (4.70-6.10); White Blood Cell (WBC) Count 17.4 thou/uL (4.8-10.8)
[2020-01-12] MEDS ORDERED: predniSONE 20 MG TAB ONE (05:09)
[2020-01-12 05:27] LABS: Base Excess-Venous 0.1 mmol/L (-2.0 to 3.0); Bicarbonate (HCO3v) 24.1 mmol/L (22.0-28.0); CO2 Tension (PvCO2) 36.4 mmHg (40.0-50.0); Calcium, Ionized 1.18 mmol/L (1.15-1.33); Chloride 94 mmol/L (98-107); Hemoglobin - Calc 14.3 g/dL (14.0-18.0); Potassium 5.2 mmol/L (3.5-5.1); Sodium 127 mmol/L (138-145); T. Carbon Dioxide 25.3 mmol/L (22.0-28.0); vO2 Saturation-calc 91.9 % (60.0-85.0)
[2020-01-12 05:34] LABS: ALT (SGPT) 15 U/L (8-55); AST (SGOT) 12 U/L (5-34); Albumin 4.3 g/dL (3.4-4.8); Alkaline Phosphatase 108 U/L (40-110); Anion Gap 17 mmol/L (10-20); BUN (Urea Nitrogen) 16 mg/dL (8.4-25.7); Bilirubin, Total 0.9 mg/dL (0.2-1.2); Calc. Creatinine Clearance 0 mL/min (70-130); Calcium 9.7 mg/dL (7.8-10.44); Carbon Dioxide 22 mmol/L (23-31); Chloride 94 mmol/L (98-107); Estimated GFR-MDRD 65; Globulin 3.3 g/dL (2.4-3.5); Glucose 304 mg/dL (83-110); Potassium 4.8 mmol/L (3.5-5.1); Protein, Total 7.6 g/dL (5.8-8.1); Sodium 128 mmol/L (136-145)
--- NOTE | 2020-01-12 07:50 | RAD ---
RADIOGRAPH CHEST 1 VIEW: DATE: 01/12/2020 HISTORY: 74-year-old male with dyspnea and cough FINDINGS: There is hyperinflation of the lungs, consistent with COPD. There is no evidence of airspace density, pulmonary edema, cardiomegaly or pneumothorax. The lateral costophrenic angles are not effaced. Right upper lobe stranding. Prominent interstitial markings at right base. Left subclavian pacemaker. No interval change overall since 09/15/2019. IMPRESSION: 1) No acute pulmonary findings. 2) emphysema.
[2020-01-12 17:44] LABS: SARS-CoV-2 MS2 Positive; SARS-CoV-2 N Gene Negative; SARS-CoV-2 S Gene Negative; SARS-CoV-2 by NAA Not Detected (NotDetected); SARS-CoV-2 orf1ab Negative
--- NOTE | 2020-01-13 14:24 | EKG ---
Test Reason : Blood Pressure : / mmHG Vent. Rate : 115 BPM Atrial Rate : 054 BPM P-R Int : 000 ms QRS Dur : 128 ms QT Int : 310 ms P-R-T Axes : 000 170 -30 degrees QTc Int : 428 ms Suspect arm lead reversal, interpretation assumes no reversal Demand pacemaker; interpretation is based on intrinsic rhythm Wide QRS rhythm with Fusion complexes Non-specific intra-ventricular conduction block Possible Right ventricular hypertrophy Anterolateral infarct , age undetermined T wave abnormality, consider inferior ischemia Abnormal ECG Confirmed by ALFREDO MINA DO ([id number]), purchase request editor MARILU CLEARY ([id number]) on 01/13/2020 2:24:40 PM Referred By: Confirmed By:ALFREDO MINA DO
== END 2020-01-12 06:49 | disposition home or self-care (01) ==
LOC: ERS 04:34
DX: J44.1 Chronic obstructive pulmonary disease with (acute) exacerbation (principal); I48.91 Unspecified atrial fibrillation; I10 Essential (primary) hypertension; I25.2 Old myocardial infarction; E11.9 Type 2 diabetes mellitus without complications; F41.9 Anxiety disorder, unspecified; Z87.891 Personal history of nicotine dependence; Z79.899 Other long term (current) drug therapy; Z79.82 Long term (current) use of aspirin; Z79.84 Long term (current) use of oral hypoglycemic drugs
CPT/HCPCS: 71045; 80053; 82330; 82435; 82803; 83880; 84132; 84295; 84484; 85014; 85025; 85379; 93005; 94640; 96365; 99285; U0003; 87635; J1956; J7512; J7620

== ENCOUNTER 2020-01-24 10:12 | Inpatient (IN) | payer MEDICARE ==
--- NOTE | 2020-01-24 11:11 | RAD ---
Chest AP view INDICATION: COPD exacerbation COMPARISON: Prior exam dated 01/12/2020 FINDINGS: Lungs: Chronic lung changes are stable. Cardiac silhouette: Mild cardiomegaly is stable. Pulmonary vasculature: Normal Pleural spaces: No pleural effusion or pneumothorax is demonstrated. Upper abdomen: No abnormality seen. Osseous structures: No acute osseous abnormality. Additional findings: Multilead pacemaker is unchanged. IMPRESSION: No acute cardiopulmonary abnormality.
[2020-01-24 11:12] LABS: Mean Corpuscular HGB CONC 33.7 g/dL (32.0-36.0); Mean Corpuscular Hemoglobin 27.9 pg (27.0-31.0); Mean Corpuscular Volume 82.7 fL (78.0-98.0); Mean Platelet Volume 9.8 fL (7.4-10.4); Platelet Count 224 thou/uL (130-400); RBC Distribution Width 17.8 % (11.5-14.5); Red Blood Cell (RBC) Count 5.39 mill/uL (4.70-6.10); White Blood Cell (WBC) Count 28.6 thou/uL (4.8-10.8)
[2020-01-24] MEDS ORDERED: methylPREDNISolone Sod Succ/PF 125 MG/2 ML VIAL ONE (11:19)
[2020-01-24 11:22] LABS: ALT (SGPT) 14 U/L (8-55); AST (SGOT) 19 U/L (5-34); Albumin 4.5 g/dL (3.4-4.8); Alkaline Phosphatase 105 U/L (40-110); Anion Gap 18 mmol/L (10-20); BUN (Urea Nitrogen) 19 mg/dL (8.4-25.7); Bilirubin, Total 1.4 mg/dL (0.2-1.2); Calc. Creatinine Clearance 0 mL/min (70-130); Calcium 9.8 mg/dL (7.8-10.44); Carbon Dioxide 18 mmol/L (23-31); Chloride 93 mmol/L (98-107); Estimated GFR-MDRD 73; Globulin 3.4 g/dL (2.4-3.5); Glucose 247 mg/dL (83-110); Potassium 5.5 mmol/L (3.5-5.1); Protein, Total 7.9 g/dL (5.8-8.1); Sodium 123 mmol/L (136-145)
[2020-01-24] MEDS ORDERED: Magnesium 2 GM/50 ML BAG (IN WATER) ONE (11:24)
[2020-01-24] MEDS ORDERED: Albuterol Sulfate 2.5 mg/0.5 ml Neb ONE (11:31)
[2020-01-24 11:36] LABS: Band 1 % (5-11); Lymphocytes 5 % (21-51); MDiff Complete? YES; Monocytes 7 % (0-10); Neutrophil 85 % (42-75); Ovalocytes SLIGHT = 2-5 cells (100X) (0-1/hpf); Platelet Morphology Comment Appears Adequate; Polychromasia SLIGHT = 2-3 cells (100X) (0-2/hpf); Reactive Lymphocytes 2 % (0-10)
--- NOTE | 2020-01-24 14:05 | HP ---
PRIMARY CARE PHYSICIAN: MIKE. CHIEF COMPLAINT: Shortness of breath. HISTORY OF PRESENT ILLNESS: This is a 74-year-old white male with a known history of severe COPD on 3 L oxygen at home. He reports for the last 2 days he has had worsening shortness of breath and some cough that has been nonproductive. He has not had any other significant symptoms. No fevers or chills. He presented to the emergency room, where he was found to be saturating around 90% on his normal 3 L, but with a severely elevated respiratory rate in the 30s. He was also noted to be hyponatremic and worse than previously and so he is being admitted to the hospital. REVIEW OF SYSTEMS: CONSTITUTIONAL: No fevers. No chills. EYES: No blurred vision. The patient does report he has had a couple of episodes of double vision over the last month, none currently. ENT: Occasional congestion and occasional sore throat, none currently. CARDIOVASCULAR: No chest pain. No palpitations or racing heart. PULMONARY: See HPI. He has lots of chest tightness and wheezing. GASTROINTESTINAL: No abdominal pain. No nausea or vomiting. He does get intermittent constipation alternating with diarrhea. GENITOURINARY: No dysuria or hematuria. MUSCULOSKELETAL: He has some chronic arthritis pains, but nothing new. SKIN: No rashes or other lesions he has noted. NEUROLOGIC: No numbness, tingling, or focal weakness. PAST MEDICAL HISTORY: 1. COPD with chronic hypoxic respiratory failure, on 3 L of home oxygen. 2. Chronic systolic congestive heart failure with an ejection fraction of 32% to 35% in 2019. 3. Atrial fibrillation, on chronic anticoagulation. 4. Obstructive sleep apnea, on CPAP. 5. Coronary artery disease. 6. Diabetes mellitus type 2. 7. History of DVT. PAST SURGICAL HISTORY: 1. Pacemaker placement. 2. Coronary stents. 3. Left hand surgery. 4. Multiple left leg surgeries. FAMILY HISTORY: Positive for heart disease and sister with an aneurysm. SOCIAL HISTORY: The patient is a former smoker with a 50 pack year smoking history. No alcohol or illicit drug use. He is a full code. His brother would be his medical decision maker, his name is Jg Jiménez. ALLERGIES: NO KNOWN DRUG ALLERGIES. CURRENT MEDICATIONS: The patient cannot remember all of his medications at home, though he does not think they have been significantly changed since last admission. Of note, last admission looks like he was switched from Coumadin to taking Eliquis. The patient is uncertain which one he is on now. PHYSICAL EXAMINATION: VITAL SIGNS: Blood pressure 195/78, pulse 72, respirations 30, temperature 98.7, O2 saturation 90% on 3 L nasal cannula. GENERAL: This is a well-developed, well-nourished white male, who was in mild respiratory distress with increased respiratory rate. HEENT: Pupils equal, round, and reactive to light. Oropharynx clear without lesions, erythema, or exudate. NECK: Supple. No lymphadenopathy. No thyroid nodules or enlargement. No JVD. HEART: Regular rate and rhythm. No murmurs, rubs, or gallops. LUNGS: The patient has very poor breath sounds bilaterally with some occasional wheezes. ABDOMEN: Soft, nontender to palpation. Normoactive bowel sounds. No hepatosplenomegaly or other masses. EXTREMITIES: No clubbing, cyanosis, or edema. SKIN: No rashes or other lesions noted. NEUROLOGIC: The patient moves all extremities equally. No facial droop. PSYCHIATRIC: Alert and oriented x3. Normal mood and affect. LABORATORY DATA: White blood cell count 20,000 with 85% neutrophils, no significant bandemia. Hemoglobin, hematocrit, and platelet counts are normal. Complete metabolic panel is notable for sodium of 123. This is lower than he has ever been before. It seems to have been dropping over the last month. Potassium of 5.5, chloride 93, carbon dioxide 18, glucose of 247, total bilirubin of 1.4. The rest of his lab was normal. Troponin was negative x1. COVID-19 is pending. Chest x-ray, I did review the chest x-ray done in the emergency room along with the radiologist's report. It does show a pacemaker and chronic lung changes with mild cardiomegaly that are all stable. No acute cardiopulmonary process visualized. ASSESSMENT: 1. Acute exacerbation of chronic obstructive pulmonary disease. 2. Acute on chronic hypoxic respiratory failure. We will continue nebulizing treatments. We will continue IV steroids. We will start patient on doxycycline. I do not see any evidence of significant pneumonia, so we will not do broad-spectrum antibiotics at this point. Suspect the leukocytosis is due to his steroid use. 3. Chronic systolic congestive heart failure. The patient does not appear volume overloaded to me right now. I will check a brain natriuretic peptide and see where it is compared to his baseline, and we will resume his home diuretics once we get his home medication list confirmed. We will go ahead and get an echocardiogram as we do not have one in our system within the last year. I will go ahead and give a single dose of Lasix right now due to his hyperkalemia and history of congestive heart failure, but then we will hold on further IV doses unless his BNP or echo suggest that he is in acute exacerbation contributing to his respiratory failure. 4. Hypertension. We will resume the patient's home medications. Give a dose of Lasix to see if this will improve his blood pressure. 5. Deep venous thrombosis prophylaxis. We will confirm the patient's current anticoagulant and resume. I will check an INR in case he is still on his Coumadin. 6. Gastrointestinal prophylaxis. The patient is on Pepcid twice a day. 7. Diabetes mellitus type 2, insulin dependent. We will put patient on fingerstick blood sugars q.a.c. and at bedtime with a low insulin sliding scale and we will resume his home insulin once we get his dose. 8. Code status. The patient is a full code. Should he be incapacitated, his brother, Jg Jiménez, is his medical decision maker. Job ID: [id number]
[2020-01-24 15:38] LABS: SARS-CoV-2 NAA Rapid Test Not Detected (NotDetected)
[2020-01-24] MEDS ORDERED: Ondansetron PF 4 MG/2 ML Vial ONE (16:57)
[2020-01-24] MEDS ORDERED: Ondansetron PF 4 MG/2 ML Vial IVP PRN (19:00)
[2020-01-24] MEDS ORDERED: Acetaminophen 325 MG TAB PO PRN ×2 (19:00→20:32)
[2020-01-24] MEDS ORDERED: Ondansetron ODT 4 MG TAB SL PRN (19:00)
[2020-01-24] MEDS ORDERED: Dextrose 5% in Water 1,000 ML IV PRN ×2 (19:45→20:32)
[2020-01-24] MEDS ORDERED: Dextrose 50% Abboject 50 ML SYRINGE IVP PRN (19:45)
[2020-01-24] MEDS ORDERED: HumaLOG 300 UNITS/3 ML VIAL SC PRN (19:45)
[2020-01-24] MEDS ORDERED: Acetaminophen 650 MG Suppository PR PRN (20:32)
[2020-01-24] MEDS ORDERED: Guaifenesin DM 100-10/5 ML UDCUP PO PRN (20:32)
[2020-01-24] MEDS ORDERED: Dextrose 50% Abboject 50 ML SYRINGE SLOW IVP PRN (20:32)
[2020-01-24] MEDS ORDERED: Furosemide 40 MG/4 ML VIAL SLOW IVP SCH (20:32)
[2020-01-24 21:06] LABS: INR-International Normal Ratio 1.1; Prothrombin Time 14.6 sec (12.0-14.7)
[2020-01-24] MEDS: HumaLOG 300 UNITS/3 ML VIAL SC PRN (21:43)
[2020-01-24] MEDS: methylPREDNISolone Sod Succ 40 MG VIAL IVP SCH (21:45)
[2020-01-24] MEDS: Famotidine 20 MG TAB PO SCH (21:45)
[2020-01-24] MEDS: Doxycycline 100 MG CAP PO SCH (21:45)
[2020-01-25] MEDS: methylPREDNISolone Sod Succ 40 MG VIAL IVP SCH ×4 (03:49→20:14)
[2020-01-25 04:44] LABS: Anion Gap 19 mmol/L (10-20); BUN (Urea Nitrogen) 30 mg/dL (8.4-25.7); Calc. Creatinine Clearance 50 mL/min (70-130); Calcium 9.8 mg/dL (7.8-10.44); Carbon Dioxide 25 mmol/L (23-31); Chloride 88 mmol/L (98-107); Estimated GFR-MDRD 50; Glucose 353 mg/dL (83-110); Potassium 5.1 mmol/L (3.5-5.1); Sodium 127 mmol/L (136-145)
[2020-01-25 04:47] LABS: Hemoglobin 14.7 g/dL (14.0-18.0); Lymphocytes 5 % (21-51); MDiff Complete? YES; Mean Corpuscular HGB CONC 31.8 g/dL (32.0-36.0); Mean Corpuscular Hemoglobin 26.7 pg (27.0-31.0); Mean Platelet Volume 9.9 fL (7.4-10.4); Monocytes 4 % (0-10); Neutrophil 91 % (42-75); Platelet Count 201 thou/uL (130-400); Platelet Morphology Comment Appears Adequate; RBC Distribution Width 17.7 % (11.5-14.5); Red Blood Cell (RBC) Count 5.52 mill/uL (4.70-6.10)
[2020-01-25] MEDS: HumaLOG 300 UNITS/3 ML VIAL SC PRN ×3 (05:43→18:20)
[2020-01-25] MEDS ORDERED: Mometasone 200 MCG/Formoterol 5 MCG 120 PUFF INHALER INH SCH (06:30)
[2020-01-25] MEDS ORDERED: Non-Formulary Item 1 EACH (Albuterol Sulfate 200 PUFF Aer) NASAL PRN (08:23)
[2020-01-25] MEDS ORDERED: traZODone HCl 50 MG TAB PO PRN (08:23)
--- NOTE | 2020-01-25 08:28 | PDOC.HOSPP ---
- Subjective Encounter Date: 01/25/20 Encounter Time: 10:00 Subjective: Patient states SOB improved a bit. Comes and goes in severity. No cough this morning. - Objective Vital Signs & Weight: Vital Signs (12 hours) Temp Pulse Resp BP Pulse Ox 01/25/20 07:22 98.1 F 74 24 H 169/79 H 97 01/25/20 06:58 92 L 01/25/20 06:57 79 16 92 L 01/25/20 06:56 79 20 92 L 01/25/20 03:52 98.1 F 72 28 H 127/75 96 01/25/20 00:20 63 24 H 95 01/24/20 20:32 97.8 F 77 32 H 174/78 H 94 L Weight Weight 171 lb 6.4 oz Result Diagrams: 01/25/20 03:47 01/25/20 03:47 Additional Labs: Accuchecks 01/25/20 01/24/20 05:28 20:22 POC Glucose 335 H 378 H Hospitalist ROS - Review of Systems Constitutional: denies: fever, chills Respiratory: reports: shortness of breath. denies: cough Cardiovascular: denies: chest pain, palpitations Gastrointestinal: denies: nausea, vomiting, abdominal pain - Medication Medications: Active Medications Generic Name Dose Route Start Last Admin Trade Name Freq PRN Reason Stop Dose Admin Albuterol/Ipratropium 3 ml 01/24/20 20:32 01/25/20 06:56 Ipratropium/Albuterol Sulfate 3 Ml Neb NEB 3 ml [id number] JOSEPHINE Administration Doxycycline Hyclate 100 mg 01/24/20 21:00 01/24/20 21:45 Doxycycline 100 Mg Cap PO 100 mg BID JOSEPHINE Administration Famotidine 20 mg 01/24/20 21:00 01/24/20 21:45 Famotidine 20 Mg Tab PO 20 mg BID JOSEPHINE Administration Insulin Human Lispro 0 units 01/24/20 20:32 01/25/20 05:43 Humalog 300 Units/3 Ml Vial SC 5 unit .MILD SLIDING SCALE PRN Administration Mild Correctional Scale Insulin Human Lispro 0 units 01/24/20 20:32 01/24/20 21:43 Humalog 300 Units/3 Ml Vial SC 5 unit .BEDTIME SLIDING SC PRN Administration Bedtime Correctional Scale Methylprednisolone Sodium Succinate 40 mg 01/24/20 21:00 01/25/20 03:49 Methylprednisolone Sod Succ 40 Mg Vial IVP 40 mg 0300,0900,1500,2100 JOSEPHINE Administration Mometasone Furoate/Formoterol Fumar 2 puff 01/25/20 06:30 01/25/20 06:57 Mometasone 200 Mcg/Formoterol 5 Mcg 120 Puff Inhaler INH 2 puff BID-RT JOSEPHINE Administration - Exam General Appearance: NAD, awake alert ENT: moist mucosa Heart: RRR, no murmur, no gallops, no rubs Respiratory: no tachypnea Respiratory - other findings: decreased breath sounds bilaterally, occ wheeze Gastrointestinal: soft, non-tender, non-distended, normal bowel sounds Extremities: no edema Psychiatric: normal affect, normal behavior Hosp A/P (1) Acute and chronic respiratory failure with hypoxia Code(s): J96.21 - ACUTE AND CHRONIC RESPIRATORY FAILURE WITH HYPOXIA Status: Acute (2) COPD exacerbation Code(s): J44.1 - CHRONIC OBSTRUCTIVE PULMONARY DISEASE W (ACUTE) EXACERBATION Status: Acute (3) Dysphagia causing pulmonary aspiration with swallowing Code(s): R13.19 - OTHER DYSPHAGIA Status: Acute (4) Congestive heart failure (CHF) Code(s): I50.9 - HEART FAILURE, UNSPECIFIED Status: Chronic Qualifiers: Heart failure type: systolic Heart failure chronicity: chronic Qualified Code(s): I50.22 - Chronic systolic (congestive) heart failure (5) CAD (coronary artery disease) Code(s): I25.10 - ATHSCL HEART DISEASE OF [place] CORONARY ARTERY W/O ANG PCTRS Status: Chronic (6) Paroxysmal A-fib Code(s): I48.0 - PAROXYSMAL ATRIAL FIBRILLATION Status: Chronic (7) NURY (obstructive sleep apnea) Code(s): G47.33 - OBSTRUCTIVE SLEEP APNEA (ADULT) (PEDIATRIC) Status: Chronic (8) Diabetes type 2, controlled Code(s): E11.9 - TYPE 2 DIABETES MELLITUS WITHOUT COMPLICATIONS Status: Chronic Qualifiers: Diabetes mellitus custodial insulin use: without custodial use (9) Dyslipidemia Code(s): E78.5 - HYPERLIPIDEMIA, UNSPECIFIED Status: Chronic (10) Hypertension Code(s): I10 - ESSENTIAL (PRIMARY) HYPERTENSION Status: Chronic Qualifiers: - Plan O2 sats staying up on 3L NC. Steroids, nebs, doxycycline. Pulmonology consult. Creatinine bumped with dose of IV Lasix, BNP normal. Actually appears on the sawdust drier side. Will continue home medications for CHF and monitor creatinine closely. Resume home meds for DM and follow blood sugars DVT Proph: Lovenox GI Proph: Pepcid
[2020-01-25] MEDS ORDERED: PROVENTIL INHALER 6.7 G (200 INHALATIONS) INH PRN (08:30)
[2020-01-25] MEDS ORDERED: FLU VACC QS2020-21(65YR UP)/PF 240 MCG/0.7 ML SYRINGE IM ONE (09:00)
[2020-01-25] MEDS ORDERED: Non-Formulary Item 1 EACH (Cetirizine Hcl [Allergy Relief] 10 MG Capsule) PO SCH (09:00)
[2020-01-25] MEDS ORDERED: Torsemide 20 MG TAB PO SCH (09:00)
[2020-01-25] MEDS ORDERED: Non-Formulary Item 1 EACH (Cyanocobalamin (Vitamin B-12) [Vitamin B12] 2,500 MCG Tab.Chew PO SCH (09:00)
[2020-01-25] MEDS ORDERED: Non-Formulary Item 1 EACH (Multivitamin [Multivitamin] 1 EACH Tablet) PO SCH (09:00)
[2020-01-25] MEDS ORDERED: Non-Formulary Item 1 EACH (Metformin Hcl [Metformin Hcl] 1,000 MG Tablet) PO SCH (09:00)
[2020-01-25] MEDS ORDERED: Lisinopril 20 MG TAB PO SCH (09:00)
[2020-01-25] MEDS ORDERED: Non-Formulary Item 1 EACH (Budesonide/Formoterol Fumarate [Budesonide-Formoterol 160-4.5] NASAL SCH (09:00)
[2020-01-25] MEDS: glipiZIDE 5 MG TAB PO SCH (10:13)
[2020-01-25] MEDS: Multivit, Therapeutic 1 TAB PO SCH (10:13)
[2020-01-25] MEDS: Amlodipine 10 MG TAB PO SCH (10:14)
[2020-01-25] MEDS: Aspirin 81 mg Enteric Coated Tablet PO SCH (10:14)
[2020-01-25] MEDS: Torsemide 20 MG TAB PO SCH (10:14)
[2020-01-25] MEDS: Spironolactone 25 MG TAB PO SCH (10:14)
[2020-01-25] MEDS: Cyanocobalamin (Vitamin B-12) 1,000 MCG TAB PO SCH (10:14)
[2020-01-25] MEDS: Loratadine 10 MG TAB PO SCH (10:15)
[2020-01-25] MEDS: Lisinopril 10 MG TAB PO SCH (10:15)
[2020-01-25] MEDS: Ondansetron ODT 4 MG TAB PO PRN ×2 (10:15→22:29)
[2020-01-25] MEDS: Doxycycline 100 MG CAP PO SCH ×2 (10:15→20:13)
[2020-01-25] MEDS: Famotidine 20 MG TAB PO SCH ×2 (10:15→20:13)
[2020-01-25] MEDS: Enoxaparin Sodium 40 MG/0.4 ML SYRINGE SC SCH (10:16)
[2020-01-25] MEDS: metFORMIN 500 MG TAB PO SCH (16:31)
[2020-01-25] MEDS: Mometasone 200 MCG/Formoterol 5 MCG 120 PUFF INHALER INH SCH (18:26)
[2020-01-25] MEDS: Atorvastatin Calcium 20 MG TAB PO SCH (20:13)
[2020-01-25] MEDS: Insulin Glargine 15 UNITS in Pre-Filled Syringe SC SCH (21:41)
[2020-01-25] MEDS: Calcium Carbonate 500 MG ChewTAB PO PRN (22:23)
[2020-01-26] MEDS: Ondansetron PF 4 MG/2 ML Vial IVP PRN (01:25)
[2020-01-26] MEDS: methylPREDNISolone Sod Succ 40 MG VIAL IVP SCH (03:09)
[2020-01-26 05:01] LABS: Anion Gap 19 mmol/L (10-20); BUN (Urea Nitrogen) 48 mg/dL (8.4-25.7); Calc. Creatinine Clearance 43 mL/min (70-130); Calcium 9.8 mg/dL (7.8-10.44); Carbon Dioxide 30 mmol/L (23-31); Chloride 83 mmol/L (98-107); Estimated GFR-MDRD 43; Glucose 540 mg/dL (83-110); Potassium 5.1 mmol/L (3.5-5.1); Sodium 127 mmol/L (136-145)
[2020-01-26 05:07] LABS: Band 6 % (5-11); Hemoglobin 15.3 g/dL (14.0-18.0); Lymphocytes 6 % (21-51); MDiff Complete? YES; Mean Corpuscular HGB CONC 32.6 g/dL (32.0-36.0); Mean Corpuscular Hemoglobin 27.2 pg (27.0-31.0); Mean Corpuscular Volume 83.5 fL (78.0-98.0); Mean Platelet Volume 10.3 fL (7.4-10.4); Monocytes 7 % (0-10); Neutrophil 81 % (42-75); Platelet Count 255 thou/uL (130-400); RBC Distribution Width 18.3 % (11.5-14.5); Red Blood Cell (RBC) Count 5.63 mill/uL (4.70-6.10)
[2020-01-26] MEDS: HumaLOG 300 UNITS/3 ML VIAL SC PRN ×5 (05:49→21:11)
--- NOTE | 2020-01-26 07:33 | PDOC.HOSPP ---
- Subjective Encounter Date: 01/26/20 Encounter Time: 10:30 Subjective: Patient with some nausea and vomiting x2 this AM. No BM. Abdomen distended. Not painful. Breathing improved. - Objective Vital Signs & Weight: Vital Signs (12 hours) Temp Pulse Resp BP Pulse Ox 01/26/20 03:04 98.1 F 72 20 132/81 93 L 01/26/20 01:28 94 L 01/25/20 20:15 95 01/25/20 19:32 97.5 F L 72 22 H 124/68 95 Weight Weight 171 lb 6.4 oz I&O: 01/25/20 01/26/20 01/27/20 06:59 06:59 06:59 Intake Total 1440 Output Total 1525 Balance -85 Result Diagrams: 01/26/20 03:53 01/26/20 03:53 Additional Labs: Accuchecks 01/25/20 01/25/20 20:34 10:56 POC Glucose 401 H 399 H Hospitalist ROS - Review of Systems Constitutional: denies: fever, chills Respiratory: denies: cough, shortness of breath Cardiovascular: denies: chest pain, palpitations Gastrointestinal: reports: nausea, vomiting. denies: abdominal pain - Medication Medications: Active Medications Generic Name Dose Route Start Last Admin Trade Name Freq PRN Reason Stop Dose Admin Albuterol/Ipratropium 3 ml 01/24/20 20:32 01/26/20 01:01 Ipratropium/Albuterol Sulfate 3 Ml Neb NEB Not Given [id number] JOSEPHINE Amlodipine Besylate 10 mg 01/25/20 09:00 01/25/20 10:14 Amlodipine 10 Mg Tab PO 10 mg DAILY JOSEPHINE Administration Aspirin 81 mg 01/25/20 09:00 01/25/20 10:14 Aspirin 81 Mg Enteric Coated Tablet PO 81 mg DAILY JOSEPHINE Administration Atorvastatin Calcium 20 mg 01/25/20 21:00 01/25/20 20:13 Atorvastatin Calcium 20 Mg Tab PO 20 mg HS JOSEPHINE Administration Calcium Carbonate 1,000 mg 01/25/20 22:04 01/25/20 22:23 Calcium Carbonate 500 Mg Chewtab PO 1,000 mg Q4H PRN Administration Heartburn or Indigestion Cyanocobalamin 1,000 mcg 01/25/20 09:00 01/25/20 10:14 Cyanocobalamin (Vitamin B-12) 1,000 Mcg Tab PO 1,000 mcg DAILY JOSEPHINE Administration Doxycycline Hyclate 100 mg 01/24/20 21:00 01/25/20 20:13 Doxycycline 100 Mg Cap PO 100 mg BID JOSEPHINE Administration Enoxaparin Sodium 40 mg 01/25/20 09:00 01/25/20 10:16 Enoxaparin Sodium 40 Mg/0.4 Ml Syringe SC 40 mg 0900 JOSEPHINE Administration Famotidine 20 mg 01/24/20 21:00 01/25/20 20:13 Famotidine 20 Mg Tab PO 20 mg BID JOSEPHINE Administration Glipizide 5 mg 01/25/20 09:00 01/25/20 10:13 Glipizide 5 Mg Tab PO 5 mg DAILY JOSEPHINE Administration Insulin Glargine 15 units/ 0.15 mls @ 0 mls/hr 01/25/20 21:00 01/25/20 21:41 Miscellaneous Medication SC 0.15 mls HS JOSEPHINE Administration Insulin Human Lispro 0 units 01/24/20 20:32 01/24/20 21:43 Humalog 300 Units/3 Ml Vial SC 5 unit .BEDTIME SLIDING SC PRN Administration Bedtime Correctional Scale Insulin Human Lispro 0 units 01/25/20 17:11 01/26/20 06:16 Humalog 300 Units/3 Ml Vial SC 2 unit .MODERATE SLIDING SC PRN Administration Moderate Correctional Scale Lisinopril 10 mg 01/25/20 09:00 01/25/20 10:15 Lisinopril 10 Mg Tab PO 10 mg DAILY JOSEPHINE Administration Loratadine 10 mg 01/25/20 09:00 01/25/20 10:15 Loratadine 10 Mg Tab PO 10 mg DAILY JOSEPHINE Administration Metformin HCl 500 mg 01/25/20 17:00 01/25/20 16:31 Metformin 500 Mg Tab PO 500 mg BID-WM JOSEPHINE Administration Methylprednisolone Sodium Succinate 40 mg 01/24/20 21:00 01/26/20 03:09 Methylprednisolone Sod Succ 40 Mg Vial IVP 40 mg 0300,0900,1500,2100 JOSEPHINE Administration Metoprolol Succinate 100 mg 01/25/20 09:00 01/25/20 10:13 Metoprolol Succinate Xl 100 Mg Tab PO 100 mg DAILY JOSEPHINE Administration Mometasone Furoate/Formoterol Fumar 2 puff 01/25/20 18:30 01/25/20 18:26 Mometasone 200 Mcg/Formoterol 5 Mcg 120 Puff Inhaler INH 2 puff BID-RT JOSEPHIEN Administration Multivitamins 1 tab 01/25/20 09:00 01/25/20 10:13 Multivit, Therapeutic 1 Tab PO 1 tab DAILY JOSEPHINE Administration Ondansetron HCl 4 mg 01/24/20 20:32 01/25/20 22:29 Ondansetron Odt 4 Mg Tab PO 4 mg Q6H PRN Administration Nausea/Vomiting Ondansetron HCl 4 mg 01/24/20 20:32 01/26/20 01:25 Ondansetron Pf 4 Mg/2 Ml Vial IVP 4 mg Q6H PRN Administration Nausea/Vomiting Sodium Chloride 10 ml 01/25/20 09:00 01/25/20 20:14 Flush - Normal Saline 10 Ml Syringe IVF 10 ml Q12HR JOSEPHINE Administration Spironolactone 25 mg 01/25/20 09:00 01/25/20 10:14 Spironolactone 25 Mg Tab PO 25 mg DAILY JOSEPHINE Administration Torsemide 40 mg 01/25/20 09:00 01/25/20 10:14 Torsemide 20 Mg Tab PO 40 mg DAILY JOSEPHINE Administration - Exam General Appearance: NAD, awake alert ENT: moist mucosa Heart: RRR, no murmur, no gallops, no rubs Respiratory: no wheezes, no rales, no ronchi Respiratory - other findings: decreased breath sounds bilaterall, but improved from admission Gastrointestinal: soft, non-tender, distended Gastrointestinal - other findings: high pitched bowel sounds Extremities: no edema Psychiatric: normal affect, normal behavior Hosp A/P (1) Acute and chronic respiratory failure with hypoxia Code(s): J96.21 - ACUTE AND CHRONIC RESPIRATORY FAILURE WITH HYPOXIA Status: Acute (2) COPD exacerbation Code(s): J44.1 - CHRONIC OBSTRUCTIVE PULMONARY DISEASE W (ACUTE) EXACERBATION Status: Acute (3) Dysphagia causing pulmonary aspiration with swallowing Code(s): R13.19 - OTHER DYSPHAGIA Status: Acute (4) Congestive heart failure (CHF) Code(s): I50.9 - HEART FAILURE, UNSPECIFIED Status: Chronic Qualifiers: Heart failure type: systolic Heart failure chronicity: chronic Qualified Code(s): I50.22 - Chronic systolic (congestive) heart failure (5) CAD (coronary artery disease) Code(s): I25.10 - ATHSCL HEART DISEASE OF [place] CORONARY ARTERY W/O ANG PCTRS Status: Chronic (6) Paroxysmal A-fib Code(s): I48.0 - PAROXYSMAL ATRIAL FIBRILLATION Status: Chronic (7) NURY (obstructive sleep apnea) Code(s): G47.33 - OBSTRUCTIVE SLEEP APNEA (ADULT) (PEDIATRIC) Status: Chronic (8) Diabetes type 2, controlled Code(s): E11.9 - TYPE 2 DIABETES MELLITUS WITHOUT COMPLICATIONS Status: Chronic Qualifiers: Diabetes mellitus terminal manager insulin use: without care home use (9) Dyslipidemia Code(s): E78.5 - HYPERLIPIDEMIA, UNSPECIFIED Status: Chronic (10) Hypertension Code(s): I10 - ESSENTIAL (PRIMARY) HYPERTENSION Status: Chronic Qualifiers: - Plan O2 sats staying up on 2-3L NC and tachypnea resolved. Steroids, nebs, doxycycline. Pulmonology consult- Patient apparently has been fired by the local pulmonology group. Will ask someone to go ahead and see him if symptoms do not improve, but seems to be improving at this point. Glucose is very elevated. Adding increased dose Lantus. Will deescalate steroid s, change to po. Creatinine bumped with dose of IV Lasix, BNP normal. Actually appears on the continuous drier operator side. Went up further today. Hyperglycemia may be exacerbating diuresis. Will hold Torsemide, give a small amount of fluids. Recheck in AM. Distended abdomen and vomiting and burping. Concern for ileus. Check CT abdomen. DVT Proph: Lovenox GI Proph: Pepcid
[2020-01-26] MEDS ORDERED: Sodium Chloride 0.9% 500 ML IV SCH (07:45)
[2020-01-26] MEDS: Mometasone 200 MCG/Formoterol 5 MCG 120 PUFF INHALER INH SCH ×2 (07:59→19:05)
[2020-01-26] MEDS: Lisinopril 10 MG TAB PO SCH (08:43)
[2020-01-26] MEDS: Enoxaparin Sodium 40 MG/0.4 ML SYRINGE SC SCH (08:43)
[2020-01-26] MEDS: Cyanocobalamin (Vitamin B-12) 1,000 MCG TAB PO SCH (08:43)
[2020-01-26] MEDS: Calcium Carbonate 500 MG ChewTAB PO PRN (08:43)
[2020-01-26] MEDS: Famotidine 20 MG TAB PO SCH (08:44)
[2020-01-26] MEDS: glipiZIDE 5 MG TAB PO SCH (08:44)
[2020-01-26] MEDS: Doxycycline 100 MG CAP PO SCH ×2 (08:44→21:11)
[2020-01-26] MEDS: Aspirin 81 mg Enteric Coated Tablet PO SCH (08:44)
[2020-01-26] MEDS: Loratadine 10 MG TAB PO SCH (08:45)
[2020-01-26] MEDS: Amlodipine 10 MG TAB PO SCH (08:45)
[2020-01-26] MEDS: Spironolactone 25 MG TAB PO SCH (08:45)
[2020-01-26] MEDS: predniSONE 20 MG TAB PO SCH (08:45)
[2020-01-26] MEDS: metFORMIN 500 MG TAB PO SCH ×2 (08:46→17:13)
[2020-01-26] MEDS: Multivit, Therapeutic 1 TAB PO SCH (08:46)
[2020-01-26] MEDS: Insulin Glargine 15 UNITS in Pre-Filled Syringe 1 EACH SC SCH (08:48)
[2020-01-26] MEDS: Senokot S 8.6-50 MG TAB PO PRN (08:48)
--- NOTE | 2020-01-26 16:54 | CT ---
CT OF THE ABDOMEN AND PELVIS WITHOUT IV CONTRAST: 01/26/20 INDICATION: Nausea, vomiting, and abdominal distention. COMPARISON: None. FINDINGS: There are patchy ground glass air space opacities in the right lower lobe with areas of subsegmental volume loss suspicious for aspiration pneumonitis. There is prominent coronary artery and thoracic aortic calcifications. There is a multilead pacemaker . Unopacified liver, pancreas, adrenal glands, and spleen reveal no acute abnormality. Unopacified kidn eys are unremarkable appearing. There is an infrarenal abdominal aortic aneurysm measuring 4.1 cm. There is severe vascular calcifica tion involving the abdominopelvic vasculature. The small and large bowel reveal no acute abnormality. There is a small calcification within the post erolateral aspect of the bladder measuring 4.4 mm. No hydronephrosis is evident. Prostate is mildly enlarged. There is a fat containing inguinal hernia. 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 There is diffuse osteopenia. No definite acute osseous abnormality is evident. IMPRESSION: 1. Ground glass air space opacity with subsegmental volume loss in the right lower lobe which i s suspicious for aspiration pneumonitis. Recommend correlation with clinical examination and history. 2. Infrarenal abdominal aortic aneurysm measuring 4.1 cm. 3. Small calcification seen within the right posterolateral aspect of the bladder which may refl ect a small bladder stone or recently passed stone. There is no hydronephrosis demonstrated. 4. Prostate enlargement. Other chronic findings as above. POS: BH
[2020-01-26] MEDS: Insulin Glargine 15 UNITS in Pre-Filled Syringe SC SCH (21:11)
[2020-01-26] MEDS: Atorvastatin Calcium 20 MG TAB PO SCH (21:11)
[2020-01-27 05:11] LABS: ALT (SGPT) 12 U/L (8-55); AST (SGOT) 9 U/L (5-34); Albumin 3.8 g/dL (3.4-4.8); Alkaline Phosphatase 81 U/L (40-110); Anion Gap 21 mmol/L (10-20); BUN (Urea Nitrogen) 78 mg/dL (8.4-25.7); Bilirubin, Total 1.4 mg/dL (0.2-1.2); Calc. Creatinine Clearance 41 mL/min (70-130); Calcium 9.3 mg/dL (7.8-10.44); Carbon Dioxide 24 mmol/L (23-31); Chloride 87 mmol/L (98-107); Estimated GFR-MDRD 41; Globulin 2.5 g/dL (2.4-3.5); Glucose 251 mg/dL (83-110); Protein, Total 6.3 g/dL (5.8-8.1); Sodium 128 mmol/L (136-145)
[2020-01-27 05:33] LABS: Band 4 % (5-11); Hemoglobin 14.2 g/dL (14.0-18.0); Lymphocytes 4 % (21-51); MDiff Complete? YES; Mean Corpuscular HGB CONC 32.8 g/dL (32.0-36.0); Mean Corpuscular Hemoglobin 27.5 pg (27.0-31.0); Mean Corpuscular Volume 83.7 fL (78.0-98.0); Mean Platelet Volume 10.5 fL (7.4-10.4); Monocytes 5 % (0-10); Neutrophil 87 % (42-75); Platelet Count 230 thou/uL (130-400); Red Blood Cell (RBC) Count 5.16 mill/uL (4.70-6.10)
[2020-01-27] MEDS: HumaLOG 300 UNITS/3 ML VIAL SC PRN ×3 (06:20→17:43)
[2020-01-27] MEDS: Mometasone 200 MCG/Formoterol 5 MCG 120 PUFF INHALER INH SCH ×2 (07:26→18:42)
--- NOTE | 2020-01-27 07:37 | PDOC.HOSPP ---
- Subjective Encounter Date: 01/27/20 Encounter Time: 08:45 Subjective: Patient feeling better. Strength and breathing better. Feeling constipated, but no abdominal pain. No more nausea/vomiting. CT neg for obstruction/ileus. - Objective Vital Signs & Weight: Vital Signs (12 hours) Temp Pulse Resp BP Pulse Ox 01/27/20 07:21 82 16 01/27/20 04:00 97.6 F 73 22 H 146/61 H 93 L 01/27/20 00:04 93 L Weight Weight 164 lb 3.2 oz I&O: 01/26/20 01/27/20 01/28/20 06:59 06:59 06:59 Intake Total 1440 1700 Output Total 1525 1325 Balance -85 375 Result Diagrams: 01/27/20 04:03 01/27/20 04:03 Additional Labs: Accuchecks 01/27/20 01/26/20 01/26/20 05:36 21:05 16:40 POC Glucose 257 H 207 H 353 H 01/26/20 01/26/20 01/25/20 10:37 05:41 17:00 POC Glucose 413 H Greater than 500 H 459 H Hospitalist ROS - Review of Systems Constitutional: denies: fever, chills Respiratory: reports: cough, SOB with excertion. denies: shortness of breath Cardiovascular: denies: chest pain, palpitations Gastrointestinal: reports: constipation. denies: nausea, vomiting, abdominal pain - Medication Medications: Active Medications Generic Name Dose Route Start Last Admin Trade Name Freq PRN Reason Stop Dose Admin Albuterol/Ipratropium 3 ml 01/24/20 20:32 01/27/20 07:21 Ipratropium/Albuterol Sulfate 3 Ml Neb NEB 3 ml [id number] JOSEPHINE Administration Amlodipine Besylate 10 mg 01/25/20 09:00 01/26/20 08:45 Amlodipine 10 Mg Tab PO 10 mg DAILY JOSEPHINE Administration Aspirin 81 mg 01/25/20 09:00 01/26/20 08:44 Aspirin 81 Mg Enteric Coated Tablet PO 81 mg DAILY JOSEPHINE Administration Atorvastatin Calcium 20 mg 01/25/20 21:00 01/26/20 21:11 Atorvastatin Calcium 20 Mg Tab PO 20 mg HS JOSEPHINE Administration Calcium Carbonate 1,000 mg 01/25/20 22:04 01/26/20 08:43 Calcium Carbonate 500 Mg Chewtab PO 1,000 mg Q4H PRN Administration Heartburn or Indigestion Cyanocobalamin 1,000 mcg 01/25/20 09:00 01/26/20 08:43 Cyanocobalamin (Vitamin B-12) 1,000 Mcg Tab PO 1,000 mcg DAILY JOSEPHINE Administration Doxycycline Hyclate 100 mg 01/24/20 21:00 01/26/20 21:11 Doxycycline 100 Mg Cap PO 100 mg BID JOSEPHINE Administration Enoxaparin Sodium 40 mg 01/25/20 09:00 01/26/20 08:43 Enoxaparin Sodium 40 Mg/0.4 Ml Syringe SC 40 mg 0900 JOSEPHINE Administration Glipizide 5 mg 01/25/20 09:00 01/26/20 08:44 Glipizide 5 Mg Tab PO 5 mg DAILY JOSEPHINE Administration Insulin Glargine 15 units/ 0.15 mls @ 0 mls/hr 01/25/20 21:00 01/26/20 21:11 Miscellaneous Medication SC 0.15 mls HS JOSEPHINE Administration Insulin Glargine 15 units/ 0.15 mls @ 0 mls/hr 01/26/20 09:00 01/26/20 08:48 Miscellaneous Medication SC 0.15 mls QAM JOSEPHINE Administration Insulin Human Lispro 0 units 01/24/20 20:32 01/26/20 21:11 Humalog 300 Units/3 Ml Vial SC 2 unit .BEDTIME SLIDING SC PRN Administration Bedtime Correctional Scale Insulin Human Lispro 0 units 01/25/20 17:11 01/27/20 06:20 Humalog 300 Units/3 Ml Vial SC 3 unit .MODERATE SLIDING SC PRN Administration Moderate Correctional Scale Lisinopril 10 mg 01/25/20 09:00 01/26/20 08:43 Lisinopril 10 Mg Tab PO 10 mg DAILY JOSEPHINE Administration Loratadine 10 mg 01/25/20 09:00 01/26/20 08:45 Loratadine 10 Mg Tab PO 10 mg DAILY JOSEPHINE Administration Metformin HCl 500 mg 01/25/20 17:00 01/26/20 17:13 Metformin 500 Mg Tab PO 500 mg BID-WM JOSEPHINE Administration Metoprolol Succinate 100 mg 01/25/20 09:00 01/26/20 08:44 Metoprolol Succinate Xl 100 Mg Tab PO 100 mg DAILY JOSEPHINE Administration Mometasone Furoate/Formoterol Fumar 2 puff 01/25/20 18:30 01/27/20 07:26 Mometasone 200 Mcg/Formoterol 5 Mcg 120 Puff Inhaler INH 2 puff BID-RT JOSEPHINE Administration Multivitamins 1 tab 01/25/20 09:00 01/26/20 08:46 Multivit, Therapeutic 1 Tab PO 1 tab DAILY JOSEPHINE Administration Ondansetron HCl 4 mg 01/24/20 20:32 01/25/20 22:29 Ondansetron Odt 4 Mg Tab PO 4 mg Q6H PRN Administration Nausea/Vomiting Ondansetron HCl 4 mg 01/24/20 20:32 01/26/20 01:25 Ondansetron Pf 4 Mg/2 Ml Vial IVP 4 mg Q6H PRN Administration Nausea/Vomiting Prednisone 40 mg 01/26/20 08:00 01/26/20 08:45 Prednisone 20 Mg Tab PO 40 mg QAM-WM JOSEPHINE Administration Senna/Docusate Sodium 2 tab 01/24/20 20:32 01/26/20 08:48 Senokot S 8.6-50 Mg Tab PO 2 tab BID PRN Administration Constipation Sodium Chloride 10 ml 01/25/20 09:00 01/26/20 21:12 Flush - Normal Saline 10 Ml Syringe IVF 10 ml Q12HR JOSEPHINE Administration Spironolactone 25 mg 01/25/20 09:00 01/26/20 08:45 Spironolactone 25 Mg Tab PO 25 mg DAILY JOSEPHINE Administration Torsemide 40 mg 01/25/20 09:00 01/25/20 10:14 Torsemide 20 Mg Tab PO 40 mg DAILY JOSEPHINE Administration - Exam General Appearance: NAD, awake alert ENT: moist mucosa Heart: RRR, no murmur, no gallops, no rubs Respiratory - other findings: rare wheeze, decent air movement Gastrointestinal: soft, non-tender, non-distended, normal bowel sounds Psychiatric: normal affect, normal behavior, A&O x 3 Hosp A/P (1) Acute and chronic respiratory failure with hypoxia Code(s): J96.21 - ACUTE AND CHRONIC RESPIRATORY FAILURE WITH HYPOXIA Status: Acute (2) COPD exacerbation Code(s): J44.1 - CHRONIC OBSTRUCTIVE PULMONARY DISEASE W (ACUTE) EXACERBATION Status: Acute (3) Dysphagia causing pulmonary aspiration with swallowing Code(s): R13.19 - OTHER DYSPHAGIA Status: Acute (4) Congestive heart failure (CHF) Code(s): I50.9 - HEART FAILURE, UNSPECIFIED Status: Chronic Qualifiers: Heart failure type: diastolic Heart failure chronicity: chronic Qualified Code(s): I50.32 - Chronic diastolic (congestive) heart failure (5) CAD (coronary artery disease) Code(s): I25.10 - ATHSCL HEART DISEASE OF [place] CORONARY ARTERY W/O ANG PCTRS Status: Chronic (6) Paroxysmal A-fib Code(s): I48.0 - PAROXYSMAL ATRIAL FIBRILLATION Status: Chronic (7) NURY (obstructive sleep apnea) Code(s): G47.33 - OBSTRUCTIVE SLEEP APNEA (ADULT) (PEDIATRIC) Status: Chronic (8) Diabetes type 2, controlled Code(s): E11.9 - TYPE 2 DIABETES MELLITUS WITHOUT COMPLICATIONS Status: Chronic Qualifiers: Diabetes mellitus long-term insulin use: without intermediate frame tender use (9) Dyslipidemia Code(s): E78.5 - HYPERLIPIDEMIA, UNSPECIFIED Status: Chronic (10) Hypertension Code(s): I10 - ESSENTIAL (PRIMARY) HYPERTENSION Status: Chronic Qualifiers: (11) Leukocytosis Code(s): D72.829 - ELEVATED WHITE BLOOD CELL COUNT, UNSPECIFIED Status: Acute - Plan O2 sats staying up on 2-3L NC and tachypnea resolved. Steroids, nebs, doxycycline. Pulmonology consult- Patient apparently has been fired by the local pulmonology group. Will ask someone to go ahead and see him if symptoms do not improve, but seems to be improving at this point. Glucose was very elevated. Added increased dose Lantus, deescalate steroids, and now sugars much improved. Creatinine bumped with dose of IV Lasix, BNP normal. Actually appears on the grain drier side. Went up further today. Hyperglycemia may be exacerbating diuresis. Holding Torsemide, give some gentle fluids. Distended abdomen and vomiting and burping 01/26/[address] abd, no evidence ileus/obstruction. Severe leukocytosis in spite of deescalating steroids. No fever. Vitals stable. Will check blood cultures, UA. Already on doxycycline. ECHO with only diastolic dysfunction, EF 55-60% Possibly home in 1-2 days. May need SNF or rehab if agreeable. DVT Proph: Lovenox GI Proph: Pepcid
[2020-01-27] MEDS: Lisinopril 10 MG TAB PO SCH (09:41)
[2020-01-27] MEDS: Cyanocobalamin (Vitamin B-12) 1,000 MCG TAB PO SCH (09:41)
[2020-01-27] MEDS: glipiZIDE 5 MG TAB PO SCH (09:41)
[2020-01-27] MEDS: Doxycycline 100 MG CAP PO SCH (09:41)
[2020-01-27] MEDS: Spironolactone 25 MG TAB PO SCH (09:41)
[2020-01-27] MEDS: Aspirin 81 mg Enteric Coated Tablet PO SCH (09:41)
[2020-01-27] MEDS: predniSONE 20 MG TAB PO SCH (09:41)
[2020-01-27] MEDS: Multivit, Therapeutic 1 TAB PO SCH (09:41)
[2020-01-27] MEDS: Famotidine 20 MG TAB PO SCH (09:41)
[2020-01-27] MEDS: Amlodipine 10 MG TAB PO SCH (09:42)
[2020-01-27] MEDS: Enoxaparin Sodium 40 MG/0.4 ML SYRINGE SC SCH (09:42)
[2020-01-27] MEDS: Insulin Glargine 15 UNITS in Pre-Filled Syringe 1 EACH SC SCH (09:42)
[2020-01-27] MEDS: metFORMIN 500 MG TAB PO SCH ×2 (09:42→17:29)
[2020-01-27] MEDS: Loratadine 10 MG TAB PO SCH (09:42)
[2020-01-27] MEDS: Sodium Chloride 0.45% 1,000 ML IV SCH ×2 (10:34→23:28)
[2020-01-27 10:50] LABS: Bilirubin Negative (Negative); Blood, Urine Trace (Negative); Glucose, Urine (Dipstick) 250 mg/dL (Negative); Ketone, Urine Negative (Negative); Leukocyte Small (Negative); Nitrite Negative (Negative); Protein, Urine (Dipstick) Negative (Neg-Trace); Specific Gravity, Urine 1.025 (1.005-1.030); Urobilinogen 0.2 mg/dL (Less than 2); pH, Urine 5.5 (5.0-9.0)
[2020-01-27 10:55] LABS: Clarity Clear (Clear)
[2020-01-27 10:57] LABS: Bacteria/HPF 1+ HPF (None Seen); RBC/HPF 0-3 HPF (0-3); Squamous Epithelial 0-3 HPF (0-3); WBC/HPF 21-50 HPF (0-3); Yeast-Budding 3+ HPF (None Seen)
[2020-01-27] MEDS ORDERED: Sodium Chloride 0.9% 1,000 ML IV SCH ×2 (17:15)
[2020-01-27] MEDS: Piperacillin/Tazobactam 3.375 GM in Sodium Chloride 0.9% 100 ML IVPB SCH ×2 (17:30→23:28)
[2020-01-27 20:06] LABS: Lactic Acid 5.4 mmol/L (0.5-2.2)
[2020-01-27] MEDS: Vancomycin HCl 1.25 GM in Sodium Chloride 0.9% 250 ML 250 ML IVPB SCH (20:26)
[2020-01-27] MEDS: Atorvastatin Calcium 20 MG TAB PO SCH (21:31)
[2020-01-27] MEDS: Insulin Glargine 15 UNITS in Pre-Filled Syringe SC SCH (21:31)
[2020-01-28 00:02] LABS: Lactic Acid 4.4 mmol/L (0.5-2.2)
[2020-01-28] MEDS ORDERED: methylPREDNISolone Sod Succ 40 MG VIAL IVP SCH (02:45)
[2020-01-28 03:19] LABS: Anion Gap 18 mmol/L (10-20); BUN (Urea Nitrogen) 66 mg/dL (8.4-25.7); Calc. Creatinine Clearance 53 mL/min (70-130); Calcium 9.1 mg/dL (7.8-10.44); Carbon Dioxide 24 mmol/L (23-31); Chloride 92 mmol/L (98-107); Estimated GFR-MDRD 54; Glucose 131 mg/dL (83-110); Potassium 4.2 mmol/L (3.5-5.1); Sodium 130 mmol/L (136-145)
[2020-01-28 03:24] LABS: Troponin I 0.011 ng/mL (< 0.028)
[2020-01-28] MEDS: Calcium Carbonate 500 MG ChewTAB PO PRN (05:07)
[2020-01-28 05:08] LABS: Anisocytosis SLIGHT = 6-15 cells (100X) (0-5/hpf); Band 9 % (5-11); Hemoglobin 13.9 g/dL (14.0-18.0); Lymphocytes 4 % (21-51); MDiff Complete? YES; Mean Corpuscular Hemoglobin 27.7 pg (27.0-31.0); Mean Corpuscular Volume 83.9 fL (78.0-98.0); Mean Platelet Volume 9.9 fL (7.4-10.4); Monocytes 13 % (0-10); Neutrophil 74 % (42-75); Platelet Count 207 thou/uL (130-400); White Blood Cell (WBC) Count 33.4 thou/uL (4.8-10.8)
[2020-01-28] MEDS: Senokot S 8.6-50 MG TAB PO PRN (05:08)
[2020-01-28] MEDS: Piperacillin/Tazobactam 3.375 GM in Sodium Chloride 0.9% 100 ML IVPB SCH ×3 (05:08→17:29)
[2020-01-28] MEDS: Sodium Chloride 0.45% 1,000 ML IV SCH (05:14)
[2020-01-28] MEDS: Mometasone 200 MCG/Formoterol 5 MCG 120 PUFF INHALER INH SCH ×2 (07:05→18:42)
[2020-01-28] MEDS: Cyanocobalamin (Vitamin B-12) 1,000 MCG TAB PO SCH (08:23)
[2020-01-28] MEDS: Aspirin 81 mg Enteric Coated Tablet PO SCH (08:23)
[2020-01-28] MEDS: metFORMIN 500 MG TAB PO SCH ×2 (08:23→17:29)
[2020-01-28] MEDS: Spironolactone 25 MG TAB PO SCH (08:23)
[2020-01-28] MEDS: Loratadine 10 MG TAB PO SCH (08:23)
[2020-01-28] MEDS: predniSONE 20 MG TAB PO SCH (08:23)
[2020-01-28] MEDS: glipiZIDE 5 MG TAB PO SCH (08:23)
[2020-01-28] MEDS: Famotidine 20 MG TAB PO SCH (08:24)
[2020-01-28] MEDS: Enoxaparin Sodium 40 MG/0.4 ML SYRINGE SC SCH (08:24)
[2020-01-28] MEDS: Amlodipine 10 MG TAB PO SCH (08:24)
[2020-01-28] MEDS: Insulin Glargine 15 UNITS in Pre-Filled Syringe 1 EACH SC SCH (08:24)
[2020-01-28] MEDS: Multivit, Therapeutic 1 TAB PO SCH (08:24)
[2020-01-28] MEDS: Lisinopril 10 MG TAB PO SCH (08:24)
[2020-01-28 10:04] LABS: Troponin I Less than 0.010 ng/mL (< 0.028)
[2020-01-28] MEDS: Ondansetron PF 4 MG/2 ML Vial IVP PRN ×2 (11:35→22:14)
--- NOTE | 2020-01-28 17:34 | PDOC.HOSPP ---
- Subjective Encounter Date: 01/28/20 Encounter Time: 10:00 Subjective: Patient was seen and examined in bed. Overnight he had a brief period of CODE BLUE with respiratory distress however recovered. This morning he has mild respiratory distress. No chest pain. He is generally current but sometimes does not make sense. - Objective Vital Signs & Weight: Vital Signs (12 hours) Temp Pulse Resp BP Pulse Ox 01/28/20 15:12 75 22 H 121/60 94 L 01/28/20 12:50 73 16 01/28/20 11:31 98.2 F 74 22 H 132/71 94 L 01/28/20 07:19 97.9 F 75 18 112/63 94 L 01/28/20 07:00 74 16 Weight Weight 169 lb 4.8 oz I&O: 01/27/20 01/28/20 01/29/20 06:59 06:59 06:59 Intake Total 1700 1500 2310 Output Total 1325 1600 750 Balance 375 -100 1560 Result Diagrams: 01/28/20 02:39 01/28/20 02:39 Additional Labs: Accuchecks 01/28/20 01/28/20 01/27/20 11:16 02:38 20:52 POC Glucose 209 H 132 H 194 H 01/27/20 17:41 POC Glucose 244 H Hospitalist ROS - Medication Medications: Active Medications Generic Name Dose Route Start Last Admin Trade Name Freq PRN Reason Stop Dose Admin Albuterol/Ipratropium 3 ml 01/24/20 20:32 01/28/20 03:14 Ipratropium/Albuterol Sulfate 3 Ml Neb NEB 3 ml [id number] PRN Administration SOB &/or Wheezing Albuterol/Ipratropium 3 ml 01/24/20 20:32 01/28/20 12:50 Ipratropium/Albuterol Sulfate 3 Ml Neb NEB 3 ml [id number] JOSEPHINE Administration Amlodipine Besylate 10 mg 01/25/20 09:00 01/28/20 08:24 Amlodipine 10 Mg Tab PO 10 mg DAILY JOSEPHINE Administration Aspirin 81 mg 01/25/20 09:00 01/28/20 08:23 Aspirin 81 Mg Enteric Coated Tablet PO 81 mg DAILY JOSEPHINE Administration Atorvastatin Calcium 20 mg 01/25/20 21:00 01/27/20 21:31 Atorvastatin Calcium 20 Mg Tab PO 20 mg HS JOSEPHINE Administration Calcium Carbonate 1,000 mg 01/25/20 22:04 01/28/20 05:07 Calcium Carbonate 500 Mg Chewtab PO 1,000 mg Q4H PRN Administration Heartburn or Indigestion Cyanocobalamin 1,000 mcg 01/25/20 09:00 01/28/20 08:23 Cyanocobalamin (Vitamin B-12) 1,000 Mcg Tab PO 1,000 mcg DAILY JOSEPHINE Administration Enoxaparin Sodium 40 mg 01/25/20 09:00 01/28/20 08:24 Enoxaparin Sodium 40 Mg/0.4 Ml Syringe SC 40 mg 0900 JOSEPHINE Administration Famotidine 20 mg 01/27/20 09:00 01/28/20 08:24 Famotidine 20 Mg Tab PO 20 mg DAILY JOSEPHINE Administration Glipizide 5 mg 01/25/20 09:00 01/28/20 08:23 Glipizide 5 Mg Tab PO 5 mg DAILY JOSEPHINE Administration Insulin Glargine 15 units/ 0.15 mls @ 0 mls/hr 01/25/20 21:00 01/27/20 21:31 Miscellaneous Medication SC 0.15 mls HS JOSEPHINE Administration Insulin Glargine 15 units/ 0.15 mls @ 0 mls/hr 01/26/20 09:00 01/28/20 08:24 Miscellaneous Medication SC 0.15 mls QAM JOSEPHINE Administration Sodium Chloride 1,000 mls @ 50 mls/hr 01/27/20 10:15 01/28/20 05:14 1/2 Normal Saline IV Not Given .Q20H JOSEPHINE Piperacillin Sod/Tazobactam 100 mls @ 200 mls/hr 01/27/20 18:00 01/28/20 17:29 Sod 3.375 gm/ Sodium Chloride IVPB 100 mls Q6HR JOSEPHINE Administration Vancomycin HCl 1.25 gm/ Sodium 250 mls @ 166.67 mls/hr 01/27/20 20:00 01/27/20 20:26 Chloride IVPB 250 mls 2000 JOSEPHINE Administration Insulin Human Lispro 0 units 01/24/20 20:32 01/26/20 21:11 Humalog 300 Units/3 Ml Vial SC 2 unit .BEDTIME SLIDING SC PRN Administration Bedtime Correctional Scale Insulin Human Lispro 0 units 01/25/20 17:11 01/27/20 17:43 Humalog 300 Units/3 Ml Vial SC 4 unit .MODERATE SLIDING SC PRN Administration Moderate Correctional Scale Lisinopril 10 mg 01/25/20 09:00 01/28/20 08:24 Lisinopril 10 Mg Tab PO 10 mg DAILY JOSEPHINE Administration Loratadine 10 mg 01/25/20 09:00 01/28/20 08:23 Loratadine 10 Mg Tab PO 10 mg DAILY JOSEPHINE Administration Metformin HCl 500 mg 01/25/20 17:00 01/28/20 17:29 Metformin 500 Mg Tab PO 500 mg BID-WM JOSEPHINE Administration Metoprolol Succinate 100 mg 01/25/20 09:00 01/28/20 08:23 Metoprolol Succinate Xl 100 Mg Tab PO 100 mg DAILY JOSEPHINE Administration Mometasone Furoate/Formoterol Fumar 2 puff 01/25/20 18:30 01/28/20 07:05 Mometasone 200 Mcg/Formoterol 5 Mcg 120 Puff Inhaler INH 2 puff BID-RT JOSEPHINE Administration Multivitamins 1 tab 01/25/20 09:00 01/28/20 08:24 Multivit, Therapeutic 1 Tab PO 1 tab DAILY JOSEPHINE Administration Ondansetron HCl 4 mg 01/24/20 20:32 01/25/20 22:29 Ondansetron Odt 4 Mg Tab PO 4 mg Q6H PRN Administration Nausea/Vomiting Ondansetron HCl 4 mg 01/24/20 20:32 01/28/20 11:35 Ondansetron Pf 4 Mg/2 Ml Vial IVP 4 mg Q6H PRN Administration Nausea/Vomiting Prednisone 40 mg 01/26/20 08:00 01/28/20 08:23 Prednisone 20 Mg Tab PO 40 mg QAM-WM JOSEPHINE Administration Senna/Docusate Sodium 2 tab 01/24/20 20:32 01/28/20 05:08 Senokot S 8.6-50 Mg Tab PO 2 tab BID PRN Administration Constipation Sodium Chloride 10 ml 01/25/20 09:00 01/28/20 08:25 Flush - Normal Saline 10 Ml Syringe IVF Not Given Q12HR JOSEPHINE Spironolactone 25 mg 01/25/20 09:00 01/28/20 08:23 Spironolactone 25 Mg Tab PO 25 mg DAILY JOSEPHINE Administration Torsemide 40 mg 01/25/20 09:00 01/25/20 10:14 Torsemide 20 Mg Tab PO 40 mg DAILY JOSEPHINE Administration - Exam General Appearance: awake alert General - other findings: Intermittently slightly confused. Heart: RRR, no murmur, no gallops, no rubs Respiratory - other findings: Reduced air entry bilaterally. No rhonchi rales. Gastrointestinal: soft, non-tender, non-distended, normal bowel sounds Extremities: no cyanosis, no clubbing, no edema Neurological: cranial nerve grossly intact, no focal deficits Psychiatric - other findings: Oriented to person and place. Hosp A/P - Plan This is a 74-year-old male patient with a history of COPD, A. fib, hypertension admitted on account of acute hypoxic respiratory failure secondary to COPD exacerbation. Acute hypoxic respiratory failure Possibilities include pneumonia/COPD exacerbation/heart failure. Currently on 3 L oxygen COPD exacerbation Severe COPD with exacerbation Initially started on doxycycline now on vancomycin and Zosyn. Continue duo nebs, prednisone Continue budesonide/tiotropium/arformoterol Oxygen therapy as needed Concerns for pneumonia. No indication of pneumonia on initial x-ray. Oxygen requirements have also been stable However has persistent leukocytosis with elevated lactate of unclear origin. Blood culture urine negative. Continue antibiotics for today Reevaluate in a.m. Possible sepsis Leukocytosis with lactic acidosis and tachypnea. However no fevers Unclear focus at the moment. No indication of pneumonia or UTI. Nothing draining urine at the moment. Continue broad-spectrum antibiotics for now and monitor. Lactic acidosis Lactate elevated at 5.4 and repeat was 4.4 Unclear cause of elevation. Possible sepsis however no focus Trend lactate Continue antibiotics for now. Heart failure with preserved ejection fraction EF 55 to 60% Stage III diastolic failure We will continue monitoring. Coronary disease Continue home medications. Paroxysmal A. fib No A. fib in the moment Rhythm is paced We will continue aspirin for now [place] prophylaxisenoxaparin CODE STATUSto be discussedcalled family no response
[2020-01-28] MEDS: Sodium Chloride 0.9% 1,000 ML IV SCH (17:46)
[2020-01-28] MEDS: Ipratropium Bromide 2.5 ml Neb NEB SCH (18:41)
[2020-01-28 18:49] LABS: Lactic Acid 1.9 mmol/L (0.5-2.2)
[2020-01-28] MEDS: Atorvastatin Calcium 20 MG TAB PO SCH (20:45)
[2020-01-28] MEDS: Vancomycin HCl 1.25 GM in Sodium Chloride 0.9% 250 ML 250 ML IVPB SCH (20:45)
[2020-01-28] MEDS: Insulin Glargine 15 UNITS in Pre-Filled Syringe SC SCH (20:52)
[2020-01-29] MEDS: Sodium Chloride 0.9% 1,000 ML IV SCH ×3 (00:02→23:48)
[2020-01-29] MEDS: Piperacillin/Tazobactam 3.375 GM in Sodium Chloride 0.9% 100 ML IVPB SCH ×3 (00:02→11:24)
[2020-01-29] MEDS: Ipratropium Bromide 2.5 ml Neb NEB SCH ×4 (00:56→21:51)
[2020-01-29 05:03] LABS: Anion Gap 14 mmol/L (10-20); BUN (Urea Nitrogen) 40 mg/dL (8.4-25.7); Calc. Creatinine Clearance 71 mL/min (70-130); Calcium 8.8 mg/dL (7.8-10.44); Carbon Dioxide 23 mmol/L (23-31); Chloride 97 mmol/L (98-107); Estimated GFR-MDRD 76; Glucose 71 mg/dL (83-110); Magnesium 2.3 mg/dL (1.6-2.6); Potassium 4.1 mmol/L (3.5-5.1); Sodium 130 mmol/L (136-145)
[2020-01-29 06:00] LABS: Hemoglobin 13.8 g/dL (14.0-18.0); Mean Corpuscular HGB CONC 32.3 g/dL (32.0-36.0); Mean Corpuscular Volume 83.7 fL (78.0-98.0); Mean Platelet Volume 10.2 fL (7.4-10.4); Platelet Count 205 thou/uL (130-400); RBC Distribution Width 17.9 % (11.5-14.5); White Blood Cell (WBC) Count 32.8 thou/uL (4.8-10.8)
[2020-01-29 06:01] LABS: Band 4 % (5-11); Lymphocytes 4 % (21-51); MDiff Complete? YES; Monocytes 10 % (0-10); Neutrophil 82 % (42-75)
[2020-01-29] MEDS: Mometasone 200 MCG/Formoterol 5 MCG 120 PUFF INHALER INH SCH ×2 (06:49→18:32)
[2020-01-29] MEDS: Multivit, Therapeutic 1 TAB PO SCH (09:24)
[2020-01-29] MEDS: Famotidine 20 MG TAB PO SCH (09:24)
[2020-01-29] MEDS: Aspirin 81 mg Enteric Coated Tablet PO SCH (09:24)
[2020-01-29] MEDS: Lisinopril 10 MG TAB PO SCH (09:24)
[2020-01-29] MEDS: predniSONE 20 MG TAB PO SCH (09:24)
[2020-01-29] MEDS: Spironolactone 25 MG TAB PO SCH (09:24)
[2020-01-29] MEDS: Amlodipine 10 MG TAB PO SCH (09:24)
[2020-01-29] MEDS: Cyanocobalamin (Vitamin B-12) 1,000 MCG TAB PO SCH (09:24)
[2020-01-29] MEDS: Torsemide 20 MG TAB PO SCH (09:24)
[2020-01-29] MEDS: Loratadine 10 MG TAB PO SCH (09:24)
[2020-01-29] MEDS: Enoxaparin Sodium 40 MG/0.4 ML SYRINGE SC SCH (09:25)
[2020-01-29] MEDS: Insulin Glargine 15 UNITS in Pre-Filled Syringe 1 EACH SC SCH (11:24)
[2020-01-29 12:52] LABS: Hemoglobin 13.8 g/dL (14.0-18.0)
[2020-01-29 14:50] LABS: Hemoglobin 13.8 g/dL (14.0-18.0)
--- NOTE | 2020-01-29 16:34 | PDOC.HOSPP ---
- Subjective Encounter Date: 01/29/20 Subjective: Patient was seen and examined in bed. He had one episode of vomiting with coffee grounds. Also past several stools after constipation a day ago. At the time of my evaluation though he denied any chest pain shortness of breath or abdominal pain. - Objective Vital Signs & Weight: Vital Signs (12 hours) Temp Pulse Pulse Pulse Resp BP BP 01/29/20 15:15 98.1 F 73 18 01/29/20 13:29 75 18 01/29/20 11:44 80 75 127/68 130/62 01/29/20 11:18 98.2 F 77 16 01/29/20 07:06 97.7 F 77 20 01/29/20 06:48 72 20 BP Pulse Ox 01/29/20 15:15 111/62 95 01/29/20 13:29 96 01/29/20 11:44 01/29/20 11:18 130/62 93 L 01/29/20 07:06 148/68 H 95 01/29/20 06:48 95 Weight Weight 168 lb 12.8 oz I&O: 01/28/20 01/29/20 01/30/20 06:59 06:59 06:59 Intake Total 1500 2810 Output Total 1600 756 Balance -100 2053 Result Diagrams: 01/29/20 14:40 01/29/20 03:47 Additional Labs: Accuchecks 01/29/20 01/29/20 01/29/20 16:24 10:32 05:34 POC Glucose 225 H 113 H 86 01/28/20 01/28/20 20:52 16:28 POC Glucose 133 H 144 H Hospitalist ROS - Medication Medications: Active Medications Generic Name Dose Route Start Last Admin Trade Name Freq PRN Reason Stop Dose Admin Albuterol/Ipratropium 3 ml 01/24/20 20:32 01/28/20 03:14 Ipratropium/Albuterol Sulfate 3 Ml Neb NEB 3 ml [id number] PRN Administration SOB &/or Wheezing Albuterol/Ipratropium 3 ml 01/24/20 20:32 01/29/20 13:29 Ipratropium/Albuterol Sulfate 3 Ml Neb NEB 3 ml [id number] JOSEPHINE Administration Amlodipine Besylate 10 mg 01/25/20 09:00 01/29/20 09:24 Amlodipine 10 Mg Tab PO 10 mg DAILY JOSEPHINE Administration Aspirin 81 mg 01/25/20 09:00 01/29/20 09:24 Aspirin 81 Mg Enteric Coated Tablet PO 81 mg DAILY JOSEPHINE Administration Atorvastatin Calcium 20 mg 01/25/20 21:00 01/28/20 20:45 Atorvastatin Calcium 20 Mg Tab PO 20 mg HS JOSEPHINE Administration Calcium Carbonate 1,000 mg 01/25/20 22:04 01/28/20 05:07 Calcium Carbonate 500 Mg Chewtab PO 1,000 mg Q4H PRN Administration Heartburn or Indigestion Cyanocobalamin 1,000 mcg 01/25/20 09:00 01/29/20 09:24 Cyanocobalamin (Vitamin B-12) 1,000 Mcg Tab PO 1,000 mcg DAILY JOSEPHINE Administration Famotidine 20 mg 01/27/20 09:00 01/29/20 09:24 Famotidine 20 Mg Tab PO 20 mg DAILY JOSEPHINE Administration Insulin Glargine 15 units/ 0.15 mls @ 0 mls/hr 01/25/20 21:00 01/28/20 20:52 Miscellaneous Medication SC 0.15 mls HS JOSEPHINE Administration Insulin Glargine 15 units/ 0.15 mls @ 0 mls/hr 01/26/20 09:00 01/29/20 11:24 Miscellaneous Medication SC 0.15 mls QAM JOSEPHINE Administration Piperacillin Sod/Tazobactam 100 mls @ 200 mls/hr 01/27/20 18:00 01/29/20 11:24 Sod 3.375 gm/ Sodium Chloride IVPB 100 mls Q6HR JOSEPHINE Administration Sodium Chloride 1,000 mls @ 100 mls/hr 01/28/20 17:45 01/29/20 13:15 Normal Saline 0.9% IV 1,000 mls .Q10H JOSEPHINE Administration Insulin Human Lispro 0 units 01/24/20 20:32 01/26/20 21:11 Humalog 300 Units/3 Ml Vial SC 2 unit .BEDTIME SLIDING SC PRN Administration Bedtime Correctional Scale Insulin Human Lispro 0 units 01/25/20 17:11 01/27/20 17:43 Humalog 300 Units/3 Ml Vial SC 4 unit .MODERATE SLIDING SC PRN Administration Moderate Correctional Scale Ipratropium Offerman 2.5 ml 01/28/20 19:00 01/29/20 13:30 Ipratropium Offerman 2.5 Ml Neb NEB Not Given [id number] JOSEPHINE Lisinopril 10 mg 01/25/20 09:00 01/29/20 09:24 Lisinopril 10 Mg Tab PO 10 mg DAILY JOSEPHINE Administration Loratadine 10 mg 01/25/20 09:00 01/29/20 09:24 Loratadine 10 Mg Tab PO 10 mg DAILY JOSEPHINE Administration Metoprolol Succinate 100 mg 01/25/20 09:00 01/29/20 09:23 Metoprolol Succinate Xl 100 Mg Tab PO 100 mg DAILY JOSEPHINE Administration Mometasone Furoate/Formoterol Fumar 2 puff 01/25/20 18:30 01/29/20 06:49 Mometasone 200 Mcg/Formoterol 5 Mcg 120 Puff Inhaler INH 2 puff BID-RT JOSEPHINE Administration Multivitamins 1 tab 01/25/20 09:00 01/29/20 09:24 Multivit, Therapeutic 1 Tab PO 1 tab DAILY JOSEPHINE Administration Ondansetron HCl 4 mg 01/24/20 20:32 01/25/20 22:29 Ondansetron Odt 4 Mg Tab PO 4 mg Q6H PRN Administration Nausea/Vomiting Ondansetron HCl 4 mg 01/24/20 20:32 01/28/20 22:14 Ondansetron Pf 4 Mg/2 Ml Vial IVP 4 mg Q6H PRN Administration Nausea/Vomiting Prednisone 40 mg 01/26/20 08:00 01/29/20 09:24 Prednisone 20 Mg Tab PO 40 mg QAM-WM JOSEPHINE Administration Senna/Docusate Sodium 2 tab 01/24/20 20:32 01/28/20 05:08 Senokot S 8.6-50 Mg Tab PO 2 tab BID PRN Administration Constipation Sodium Chloride 10 ml 01/25/20 09:00 01/29/20 09:25 Flush - Normal Saline 10 Ml Syringe IVF Not Given Q12HR JOSEPHINE Spironolactone 25 mg 01/25/20 09:00 01/29/20 09:24 Spironolactone 25 Mg Tab PO 25 mg DAILY JOSEPHINE Administration Torsemide 40 mg 01/25/20 09:00 01/29/20 09:24 Torsemide 20 Mg Tab PO 40 mg DAILY JOSEPHINE Administration - Exam General Appearance: awake alert Heart: RRR, no murmur, no gallops, normal peripheral pulses Respiratory: no wheezes, no rales, no ronchi, no tachypnea Gastrointestinal: soft, non-tender, non-distended, normal bowel sounds Extremities: no cyanosis, no clubbing, no edema Neurological: cranial nerve grossly intact, no weakness Psychiatric: normal affect, A&O x 3 Hosp A/P - Plan This is a 74-year-old male patient with a history of COPD, A. fib, hypertension admitted on account of acute hypoxic respiratory failure secondary secondary to COPD exacerbation and possible pneumonia. This morning had coffee-ground hematemesis and GI was consulted. Planning to do EGD tomorrow Acute hypoxic respiratory failure Possibilities include pneumonia/COPD exacerbation/heart failure. Currently on 3 L oxygen COPD exacerbation Continue azithromycin/ceftriaxone And prednisone. Continue home and as needed breathing treatments Requiring 2 L. Upper GI bleeding Hematemesis noted today DVT prophylaxis discontinued Started on Protonix GI consulted For EGD tomorrow Concerns for pneumonia. Given his initial chest x-ray and subsequent evaluation. No ongoing fevers Patient likely has a pneumonia We will continue treatment of COPD exacerbation and start aspirin Discontinue vancomycin and Zosyn. Lactic acidosis Lactate elevated at 5.4 and repeat was 4.4 Unclear cause of elevation. Possible sepsis however no focus Trend lactate Continue antibiotics for now. Heart failure with preserved ejection fraction EF 55 to 60% Stage III diastolic failure We will continue monitoring. Coronary disease Continue home medications. Paroxysmal A. fib No A. fib in the moment Rhythm is paced We will continue aspirin for now VT prophylaxisenoxaparin CODE STATUSto be discussedcalled family no response
[2020-01-29] MEDS: cefTRIAXone\\ROCEPHIN 1 GM in Sodium Chloride 0.9% 100 ML IVPB SCH (17:01)
[2020-01-29] MEDS: Azithromycin 500 MG in Sodium Chloride 0.9% 250 ML 250 ML IVPB SCH (17:51)
--- NOTE | 2020-01-29 18:34 | CON ---
DATE OF CONSULTATION: 01/29/2020 REQUESTING PHYSICIANS: Oscar Banda MD REASON FOR CONSULTATION: Hematemesis. HISTORY OF PRESENT ILLNESS: Tab Jiménez is a 74-year-old man with a history significant for coronary artery disease; obstructive sleep apnea; atrial fibrillation, on Eliquis; CHF; and COPD, on home oxygen. He has no known history of gastrointestinal illness. He reports no chronic gastrointestinal symptoms. He was admitted to the hospital 5 days ago with worsening shortness of breath and some chest pain. He has been treated for COPD exacerbation/CHF exacerbation with IV steroids, antibiotics, nebulizers, and diuretics. About 3 days ago, he started having some nausea and vomiting, this was nonbloody. A CT scan of the abdomen and pelvis showed no acute processes except for some right lower lung infiltrates. Antibiotics were expanded to vancomycin and Zosyn. He had increasing leukocytosis. Then, earlier today, he had another round of nausea and vomiting, and at this time, he threw up what he described as red liquid. He says it did not look like blood to him, looked more like tomato juice. At any rate, this has not recurred. He has been able to tolerate a little bit of his lunch with no further vomiting today. He has remained hemodynamically stable. Hemoglobin is stable this morning and afternoon at 13.8. He was started on IV PPI. He has been receiving Lovenox while here, but this is now being held. He did receive a dose this morning. It appears that his Eliquis has been held since admission. He is not complaining of any abdominal pain. There has been no melena. PAST MEDICAL HISTORY: COPD, on home oxygen; congestive heart failure with diastolic dysfunction; atrial fibrillation, on Eliquis; obstructive sleep apnea, on CPAP; diabetes type 2; coronary artery disease with stents; DVT; and pacemaker placement. ALLERGIES: NO KNOWN DRUG ALLERGIES. INPATIENT MEDICATIONS: 1. DuoNebs. 2. Norvasc. 3. Aspirin 81 mg daily. 4. Lipitor. 5. Tums p.r.n. 6. Vitamin B12 of 1000 mcg daily. 7. Pepcid 20 mg daily. 8. Sliding scale insulin. 9. Atrovent. 10. Lisinopril. 11. Loratadine. 12. Metoprolol. 13. Dulera inhaler. 14. Multivitamin. 15. Zofran p.r.n. 16. Zosyn 3.375 g IV q.6 hours. 17. Prednisone 40 mg daily. 18. Senokot p.r.n. 19. Spironolactone 25 mg daily. 20. Torsemide 40 mg daily. 21. Vancomycin 1.25 g daily. 22. Pantoprazole 40 mg IV q.12 hours just started today. FAMILY HISTORY: Noncontributory. SOCIAL HISTORY: He is a former smoker. No alcohol or drug use. REVIEW OF SYSTEMS: Full review of systems including constitutional, head, eyes, ears, nose, throat, GI, , cardiovascular, respiratory, musculoskeletal, neurologic systems is negative except as noted in the HPI. PHYSICAL EXAMINATION: VITAL SIGNS: Temperature 98.2, pulse 75, blood pressure 127/68, 96% oxygen saturation on 3 L nasal cannula. GENERAL: A 74-year-old man, lying in bed comfortably, in no distress. MENTAL STATUS: He is alert and oriented. He is able to give details of recent history, but not a lot of specifics of home medications, etc. SKIN: No jaundice, no rashes were palpable. He has some bruising to the extremities. EYES: No scleral icterus. Extraocular movements intact. ENT: Mucous membranes moist. No oral lesions. LYMPHS: No submandibular, supraclavicular lymphadenopathy. THYROID: Nontender to palpation. HEART: Regular rate and rhythm. LUNGS: Bilateral faint expiratory wheezing. No respiratory distress. ABDOMEN: Nondistended. Bowel sounds present. Soft and nontender to palpation. EXTREMITIES: No peripheral edema. VESSELS: Radial pulses 2+ bilaterally. NEUROLOGIC: Cranial nerves 2 through 12 intact bilaterally. No focal deficits. LABORATORY STUDIES: Hemoglobin 13.8, stable today; WBC 32.8; platelets 205. BUN 40, creatinine 0.96, sodium 130, potassium 4.1, glucose 113. INR 1.1. COVID PCR is negative. Urinalysis showed 21 to 50 wbc's. Blood culture showed no growth to date at 48 hours. IMAGING STUDIES: Chest x-ray showed no acute processes. Pacemaker is in place. CT of the abdomen and pelvis did demonstrate patchy right lower lobe opacities, suspicious for aspiration pneumonitis, pacemaker is in place. There is a 4.1 cm abdominal aortic aneurysm. There is a small bladder stone and prostatic hypertrophy. Echocardiogram showed ejection fraction 55% to 60%, but stage III diastolic dysfunction. ASSESSMENT AND PLAN: 1. Hematemesis, single episode earlier today, without any significant anemia. Hemoglobin is stable at 13.8. 2. Chronic obstructive pulmonary disease exacerbation. 3. Right lower lobe pneumonitis. The patient is certainly at risk for gastritis or peptic ulcer disease with the active chronic obstructive pulmonary disease exacerbation and steroid treatments. He has appropriately been started on IV pantoprazole. That being said, he is doing well this afternoon, remains hemodynamically stable, has not yet dropped his hemoglobin, we are going to plan for diagnostic EGD tomorrow. Please have him n.p.o. after midnight. Further recommendations following EGD. Thank you for the consultation. Please call anytime with questions or concerns. Job ID: [id number]
[2020-01-29 20:25] LABS: Hemoglobin 13.1 g/dL (14.0-18.0)
[2020-01-29] MEDS: Pantoprazole 40 MG VIAL IVP SCH (20:52)
[2020-01-29] MEDS: Insulin Glargine 15 UNITS in Pre-Filled Syringe SC SCH (20:52)
[2020-01-29] MEDS: Atorvastatin Calcium 20 MG TAB PO SCH (20:53)
[2020-01-30] MEDS: Ipratropium Bromide 2.5 ml Neb NEB SCH ×2 (00:19→06:59)
[2020-01-30] MEDS: Mometasone 200 MCG/Formoterol 5 MCG 120 PUFF INHALER INH SCH ×2 (06:57→18:41)
[2020-01-30 08:17] LABS: Anion Gap 13 mmol/L (10-20); BUN (Urea Nitrogen) 30 mg/dL (8.4-25.7); Calc. Creatinine Clearance 78 mL/min (70-130); Calcium 8.1 mg/dL (7.8-10.44); Carbon Dioxide 23 mmol/L (23-31); Chloride 103 mmol/L (98-107); Estimated GFR-MDRD 86; Glucose 117 mg/dL (83-110); Potassium 3.6 mmol/L (3.5-5.1); Sodium 135 mmol/L (136-145)
[2020-01-30] MEDS: Aspirin 81 mg Enteric Coated Tablet PO SCH (09:05)
[2020-01-30] MEDS: Pantoprazole 40 MG VIAL IVP SCH (09:05)
[2020-01-30] MEDS: Torsemide 20 MG TAB PO SCH (09:05)
[2020-01-30] MEDS: Loratadine 10 MG TAB PO SCH (09:06)
[2020-01-30] MEDS: Famotidine 20 MG TAB PO SCH ×2 (09:06→21:52)
[2020-01-30] MEDS: Spironolactone 25 MG TAB PO SCH (09:06)
[2020-01-30] MEDS: Amlodipine 10 MG TAB PO SCH (09:07)
[2020-01-30] MEDS: Lisinopril 10 MG TAB PO SCH (09:07)
[2020-01-30] MEDS: Cyanocobalamin (Vitamin B-12) 1,000 MCG TAB PO SCH (09:07)
[2020-01-30] MEDS ORDERED: PROPOFOL 200 MG/20 ML VIAL ONE (09:15)
[2020-01-30 09:39] LABS: Anisocytosis SLIGHT = 6-15 cells (100X) (0-5/hpf); Elliptocytes SLIGHT = 2-5 cells (100X) (0-1/hpf); Eosinophils 2 % (0-10); Hemoglobin 12.5 g/dL (14.0-18.0); Lymphocytes 10 % (21-51); MDiff Complete? YES; Mean Corpuscular HGB CONC 33.4 g/dL (32.0-36.0); Mean Corpuscular Hemoglobin 27.9 pg (27.0-31.0); Mean Corpuscular Volume 83.6 fL (78.0-98.0); Monocytes 7 % (0-10); Neutrophil 81 % (42-75); Platelet Count 156 thou/uL (130-400); Platelet Morphology Comment Appears Adequate; RBC Distribution Width 17.5 % (11.5-14.5); Red Blood Cell (RBC) Count 4.48 mill/uL (4.70-6.10); White Blood Cell (WBC) Count 23.2 thou/uL (4.8-10.8)
[2020-01-30] MEDS: Sodium Chloride 0.9% 1,000 ML IV SCH (09:50)
[2020-01-30] MEDS: predniSONE 20 MG TAB PO SCH (09:53)
[2020-01-30] MEDS: Insulin Glargine 15 UNITS in Pre-Filled Syringe 1 EACH SC SCH (09:53)
[2020-01-30] MEDS: Multivit, Therapeutic 1 TAB PO SCH (09:53)
[2020-01-30] MEDS ORDERED: Fentanyl 100 MCG/2 ML VIAL ONE (12:06)
[2020-01-30] MEDS ORDERED: Lidocaine Viscous Sol 2% 15 ml UD Cup ONE (12:30)
[2020-01-30] MEDS ORDERED: Ketamine 50 MG/ML (10ML VIAL) ONE (12:36)
--- NOTE | 2020-01-30 13:48 | OP ---
DATE OF PROCEDURE: 01/30/2020 PROCEDURE PERFORMED: Esophagogastroduodenoscopy with biopsy. PREMEDICATION: Given by Anesthesiology Department. PREPROCEDURE DIAGNOSIS: Limited hematemesis. POSTPROCEDURE DIAGNOSES: 1. Severe LA grade D erosive esophagitis. 2. Few scattered gastric erosions. 3. Otherwise normal upper endoscopy without any active bleeding. DESCRIPTION OF PROCEDURE: Written consents were obtained prior to procedure. After adequate sedation, the forward-viewing endoscope was advanced down the hypopharynx under direct vision to the third portion of duodenum. The duodenum including the bulb appeared normal. The pylorus was patent. The gastric antrum and body appeared normal except for few scattered small erosions. The cardia and fundus appeared normal including retroflexion. No ulcerations or bleeding was seen in the stomach. The GE junction was located approximately 39 cm from the incisors. Severe LA grade B erosive esophagitis was seen extending up to 28 cm from the incisors. There was no bleeding seen. Biopsies obtained of gastric antrum for H pylori testing. The stomach was then decompressed, the instrument was then fully removed. The patient tolerated procedure well. ASSESSMENT: 1. LA grade D erosive esophagitis, source of hematemesis two days ago. 2. Few gastric erosions. 3. Otherwise normal upper endoscopy without any active bleeding. RECOMMENDATIONS: 1. Resume diet. 2. Continue with pantoprazole 40 mg b.i.d., change to p.o. 3. The patient can resume Eliquis from GI standpoint. Job ID: [id number] [facility]
[2020-01-30] MEDS: cefTRIAXone\\ROCEPHIN 1 GM in Sodium Chloride 0.9% 100 ML IVPB SCH (16:16)
--- NOTE | 2020-01-30 18:01 | PDOC.HOSPP ---
- Subjective Encounter Date: 01/30/20 Subjective: Patient was seen and examined in bed. Had a generally good night. Denied any chest pain or shortness of breath. Denied any cough, hematemesis or bloody stools. - Objective Vital Signs & Weight: Vital Signs (12 hours) Temp Pulse Pulse Pulse Resp BP BP 01/30/20 16:15 98 F 86 21 H 01/30/20 14:10 73 74 123/63 01/30/20 11:40 97.9 F 100 18 01/30/20 09:07 75 125/63 01/30/20 08:00 97.3 F L 75 16 01/30/20 07:00 01/30/20 06:59 78 20 01/30/20 06:57 78 20 BP BP Pulse Ox Pulse Ox Pulse Ox 01/30/20 16:15 131/62 92 L 01/30/20 14:10 124/79 96 91 L 01/30/20 11:40 118/75 96 01/30/20 09:07 01/30/20 08:00 125/63 96 01/30/20 07:00 97 01/30/20 06:59 97 01/30/20 06:57 97 Weight Weight 167 lb I&O: 01/29/20 01/30/20 01/31/20 06:59 06:59 06:59 Intake Total 2810 2130 Output Total 756 750 Balance 2054 1380 Result Diagrams: 01/30/20 07:18 01/30/20 07:18 Additional Labs: Accuchecks 01/30/20 01/30/20 01/30/20 17:21 10:31 06:11 POC Glucose 231 H 129 H 117 H 01/29/20 20:49 POC Glucose 203 H Hospitalist ROS - Medication Medications: Active Medications Generic Name Dose Route Start Last Admin Trade Name Freq PRN Reason Stop Dose Admin Albuterol/Ipratropium 3 ml 01/24/20 20:32 01/28/20 03:14 Ipratropium/Albuterol Sulfate 3 Ml Neb NEB 3 ml [id number] PRN Administration SOB &/or Wheezing Albuterol/Ipratropium 3 ml 01/24/20 20:32 01/30/20 12:12 Ipratropium/Albuterol Sulfate 3 Ml Neb NEB Not Given [id number] JOSEPHINE Amlodipine Besylate 10 mg 01/25/20 09:00 01/30/20 09:07 Amlodipine 10 Mg Tab PO 10 mg DAILY JOSEPHINE Administration Aspirin 81 mg 01/25/20 09:00 01/30/20 09:05 Aspirin 81 Mg Enteric Coated Tablet PO 81 mg DAILY JOSEPHINE Administration Atorvastatin Calcium 20 mg 01/25/20 21:00 01/29/20 20:53 Atorvastatin Calcium 20 Mg Tab PO 20 mg HS JOSEPHINE Administration Calcium Carbonate 1,000 mg 01/25/20 22:04 01/28/20 05:07 Calcium Carbonate 500 Mg Chewtab PO 1,000 mg Q4H PRN Administration Heartburn or Indigestion Cyanocobalamin 1,000 mcg 01/25/20 09:00 01/30/20 09:07 Cyanocobalamin (Vitamin B-12) 1,000 Mcg Tab PO 1,000 mcg DAILY JOSEPHINE Administration Insulin Glargine 15 units/ 0.15 mls @ 0 mls/hr 01/25/20 21:00 01/29/20 20:52 Miscellaneous Medication SC 0.15 mls HS JOSEPHINE Administration Insulin Glargine 15 units/ 0.15 mls @ 0 mls/hr 01/26/20 09:00 01/30/20 09:53 Miscellaneous Medication SC Not Given QA JOSEPHINE Sodium Chloride 1,000 mls @ 100 mls/hr 01/28/20 17:45 01/30/20 09:50 Normal Saline 0.9% IV 1,000 mls .Q10H JOSEPHINE Administration Azithromycin 500 mg/ Sodium 250 mls @ 250 mls/hr 01/29/20 18:00 01/29/20 17:51 Chloride IVPB 250 mls Q24HR JOSEPHINE Administration Ceftriaxone Sodium 1 gm/ 100 mls @ 200 mls/hr 01/29/20 17:00 01/30/20 16:16 Sodium Chloride IVPB 100 mls Q24HR JOSEPHINE Administration Insulin Human Lispro 0 units 01/24/20 20:32 01/26/20 21:11 Humalog 300 Units/3 Ml Vial SC 2 unit .BEDTIME SLIDING SC PRN Administration Bedtime Correctional Scale Insulin Human Lispro 0 units 01/25/20 17:11 01/27/20 17:43 Humalog 300 Units/3 Ml Vial SC 4 unit .MODERATE SLIDING SC PRN Administration Moderate Correctional Scale Lisinopril 10 mg 01/25/20 09:00 01/30/20 09:07 Lisinopril 10 Mg Tab PO 10 mg DAILY JOSEPHINE Administration Loratadine 10 mg 01/25/20 09:00 01/30/20 09:06 Loratadine 10 Mg Tab PO 10 mg DAILY JOSEPHINE Administration Metoprolol Succinate 100 mg 01/25/20 09:00 01/30/20 09:05 Metoprolol Succinate Xl 100 Mg Tab PO 100 mg DAILY JOSEPHINE Administration Mometasone Furoate/Formoterol Fumar 2 puff 01/25/20 18:30 01/30/20 06:57 Mometasone 200 Mcg/Formoterol 5 Mcg 120 Puff Inhaler INH 2 puff BID-RT JOSEPHINE Administration Multivitamins 1 tab 01/25/20 09:00 01/30/20 09:53 Multivit, Therapeutic 1 Tab PO Not Given DAILY JOSEPHINE Ondansetron HCl 4 mg 01/24/20 20:32 01/25/20 22:29 Ondansetron Odt 4 Mg Tab PO 4 mg Q6H PRN Administration Nausea/Vomiting Ondansetron HCl 4 mg 01/24/20 20:32 01/28/20 22:14 Ondansetron Pf 4 Mg/2 Ml Vial IVP 4 mg Q6H PRN Administration Nausea/Vomiting Prednisone 40 mg 01/26/20 08:00 01/30/20 09:53 Prednisone 20 Mg Tab PO Not Given QAM- JOSEPHINE Senna/Docusate Sodium 2 tab 01/24/20 20:32 01/28/20 05:08 Senokot S 8.6-50 Mg Tab PO 2 tab BID PRN Administration Constipation Sodium Chloride 10 ml 01/25/20 09:00 01/30/20 09:53 Flush - Normal Saline 10 Ml Syringe IVF Not Given Q12HR JOSEPHINE Spironolactone 25 mg 01/25/20 09:00 01/30/20 09:06 Spironolactone 25 Mg Tab PO 25 mg DAILY JOSEPHINE Administration Torsemide 40 mg 01/25/20 09:00 01/30/20 09:05 Torsemide 20 Mg Tab PO 40 mg DAILY JOSEPHINE Administration - Exam General Appearance: awake alert Heart: no murmur, no gallops, no rubs Respiratory: no wheezes, no rales, no ronchi Gastrointestinal: soft, non-tender, normal bowel sounds Extremities: no cyanosis, no clubbing, no edema Neurological: cranial nerve grossly intact, no weakness Psychiatric: normal affect, A&O x 3 Hosp A/P - Plan This is a 74-year-old male patient with a history of COPD, A. fib, hypertension admitted on account of acute hypoxic respiratory failure secondary secondary to COPD exacerbation and possible pneumonia. This morning had coffee-ground hematemesis and GI was consulted. Planning to do EGD tomorrow Acute hypoxic respiratory failure Possibilities include pneumonia/COPD exacerbation/heart failure. Currently on 3 L oxygen COPD exacerbation Continue azithromycin/ceftriaxone And prednisone. Continue home and as needed breathing treatments Requiring 2 L. Concerns for pneumonia. Given his initial chest x-ray and subsequent evaluation. No ongoing fevers Patient likely has a pneumonia We will continue treatment of COPD exacerbation Discontinue vancomycin and Zosyn. Upper GI bleeding Hematemesis Had EGD today showed erosive gastritis We will continue on Protonix GI following Lactic acidosis Resolved Continue monitoring. Heart failure with preserved ejection fraction EF 55 to 60% Stage III diastolic failure We will continue monitoring. Coronary disease Continue home medications. Paroxysmal A. fib No A. fib in the moment Rhythm is paced We will continue aspirin for now VT prophylaxisenoxaparin Dispositionpossible discharge tomorrow.
[2020-01-30] MEDS: Azithromycin 500 MG in Sodium Chloride 0.9% 250 ML 250 ML IVPB SCH (18:21)
[2020-01-30] MEDS: Insulin Glargine 15 UNITS in Pre-Filled Syringe SC SCH (21:53)
[2020-01-30] MEDS: HumaLOG 300 UNITS/3 ML VIAL SC PRN (21:53)
[2020-01-30] MEDS: Atorvastatin Calcium 20 MG TAB PO SCH (21:53)
[2020-01-31] MEDS: Sodium Chloride 0.9% 1,000 ML IV SCH ×2 (03:03→06:56)
[2020-01-31] MEDS: Mometasone 200 MCG/Formoterol 5 MCG 120 PUFF INHALER INH SCH (06:56)
[2020-01-31] MEDS: Insulin Glargine 15 UNITS in Pre-Filled Syringe 1 EACH SC SCH (08:54)
[2020-01-31] MEDS: Senokot S 8.6-50 MG TAB PO PRN (08:58)
[2020-01-31] MEDS: Aspirin 81 mg Enteric Coated Tablet PO SCH (08:58)
[2020-01-31] MEDS: Famotidine 20 MG TAB PO SCH (08:58)
[2020-01-31] MEDS: Amlodipine 10 MG TAB PO SCH ×2 (08:59→13:40)
[2020-01-31] MEDS: Multivit, Therapeutic 1 TAB PO SCH (08:59)
[2020-01-31] MEDS: Cyanocobalamin (Vitamin B-12) 1,000 MCG TAB PO SCH (09:00)
[2020-01-31] MEDS: Loratadine 10 MG TAB PO SCH (09:00)
[2020-01-31] MEDS ORDERED: Enoxaparin Sodium 40 MG/0.4 ML SYRINGE SC SCH (09:00)
[2020-01-31] MEDS: Torsemide 20 MG TAB PO SCH (09:00)
[2020-01-31] MEDS: predniSONE 20 MG TAB PO SCH (09:00)
[2020-01-31] MEDS: Spironolactone 25 MG TAB PO SCH (09:01)
[2020-01-31] MEDS: Lisinopril 10 MG TAB PO SCH ×2 (09:01→13:41)
--- NOTE | 2020-01-31 09:19 | EKG ---
Test Reason : STAT Blood Pressure : / mmHG Vent. Rate : 073 BPM Atrial Rate : 073 BPM P-R Int : 000 ms QRS Dur : 122 ms QT Int : 446 ms P-R-T Axes : 059 024 040 degrees QTc Int : 491 ms Electronic ventricular pacemaker When compared with ECG of 24-JAN-2020 10:38, No significant change was found Confirmed by DEYANIRA HENRY MD ([id number]) on 01/31/2020 9:19:31 AM Referred By: JENN Confirmed By:DEYANIRA HENRY MD
[2020-01-31 09:26] LABS: Hemoglobin 12.5 g/dL (14.0-18.0); Mean Corpuscular HGB CONC 31.4 g/dL (32.0-36.0); Mean Corpuscular Hemoglobin 26.8 pg (27.0-31.0); Mean Corpuscular Volume 85.2 fL (78.0-98.0); Platelet Count 146 thou/uL (130-400); RBC Distribution Width 17.7 % (11.5-14.5); Red Blood Cell (RBC) Count 4.67 mill/uL (4.70-6.10)
[2020-01-31 09:41] LABS: Anion Gap 13 mmol/L (10-20); BUN (Urea Nitrogen) 25 mg/dL (8.4-25.7); Calc. Creatinine Clearance 77 mL/min (70-130); Carbon Dioxide 25 mmol/L (23-31); Chloride 100 mmol/L (98-107); Estimated GFR-MDRD 85; Glucose 173 mg/dL (83-110); Potassium 3.2 mmol/L (3.5-5.1); Sodium 135 mmol/L (136-145)
[2020-01-31 11:17] LABS: Band 2 % (5-11); Burr Cells SLIGHT = 2-5 cells (100X) (0-1/hpf); Lymphocytes 3 % (21-51); MDiff Complete? YES; Monocytes 8 % (0-10); Neutrophil 86 % (42-75); Ovalocytes SLIGHT = 2-5 cells (100X) (0-1/hpf); Platelet Morphology Comment Appears Adequate; Polychromasia SLIGHT = 2-3 cells (100X) (0-2/hpf); Reactive Lymphocytes 1 % (0-10)
[2020-01-31 12:59] VITALS: BMI 25.4
[2020-01-31 13:40] VITALS: TEMP 97.8
[2020-01-31 13:41] VITALS: BP 125/63
--- NOTE | 2020-01-31 16:19 | PDOC.DS.DS ---
Provider - Provider Date of Admission: 01/24/20 18:19 Date of Discharge: 01/31/20 Admitting Provider: Quinton Souza MD Primary Care Physician: STEVEN Mejía Course - Hospital Course Hospital Course: 4-year-old male patient with a history of COPD on 3 L home oxygen, hypertension who presented to the ED on account of worsening shortness of breath and cough. He was admitted on account of acute COPD exacerbation and started on steroids breathing treatments and antibioticsdoxycycline. While on admission however, WBC became significantly elevated with associated l actate and worsening respiratory distress. Antibiotics were changed to Vanco and Zosyn and blood cultures were taken however this did not grow any organisms after the 48 hours. Lactate also quickly resolved. Antibiotics were deescalated to azithromycin and ceftriaxone. He remained generally stable while on admission. 2 days prior to discharge he had one episode of hematemesis requiring GI consult and upper GI endoscopy which revealed nonbleeding gastritis. Steroids were discontinued. Anticoagulation was also discontinued. He however generally remained stable for discharge. He was discharged to complete antibiotics and continue on pantoprazole. He will follow-up with his PCP and GI Resuscitation Status: 01/24/20 12:58 Resuscitation Status Routine Resuscitation Status: FULL: Full Resuscitation Discussed with: Patient - Labs Lab Results: 01/31/20 09:02 01/31/20 09:02 Abnormal Lab Results - Last 48 hrs 01/29/20 20:18: Hgb 13.1 L, Hct 39.3 L 01/30/20 07:18: Sodium 135 L, BUN 30 H 01/30/20 07:18: WBC 23.2 H, RBC 4.48 L, Hgb 12.5 L, Hct 37.5 L, RDW 17.5 H, Neutrophils % (Manual) 81 H, Lymphocytes % (Manual) 10 L 01/31/20 09:02: Sodium 135 L, Potassium 3.2 L 01/31/20 09:02: WBC 25.0 H, RBC 4.67 L, Hgb 12.5 L, Hct 39.8 L, MCH 26.8 L, MCHC 31.4 L, RDW 17.7 H, Neutrophils % (Manual) 86 H, Band Neuts % (Manual) 2 L, Lymphocytes % (Manual) 3 L Microbiology - Entire Visit 11/21/20 16:27 Venous blood - Left Arm Blood Culture - Preliminary NO GROWTH AT 48 HOURS 01/27/20 16:27 Venous blood - Left Hand Blood Culture - Preliminary NO GROWTH AT 48 HOURS - Physical Exam Vitals: Vital Signs (12 hours) Temp Pulse Pulse Pulse Resp BP BP 01/31/20 13:41 125/63 01/31/20 13:40 75 135/72 01/31/20 13:13 75 16 01/31/20 12:00 97.8 F 75 16 01/31/20 10:32 95 88 132/71 01/31/20 08:00 01/31/20 07:58 98.1 F 72 18 01/31/20 06:58 73 16 01/31/20 06:56 73 16 BP Pulse Ox Pulse Ox Pulse Ox 01/31/20 13:41 01/31/20 13:40 01/31/20 13:13 95 01/31/20 12:00 135/72 01/31/20 10:32 95 91 L 01/31/20 08:00 95 01/31/20 07:58 102/56 L 96 01/31/20 06:58 95 01/31/20 06:56 93 L Weight Admit Weight 171 lb 6.4 oz Weight 167 lb Physical Exam: The patient was seen and examined on the day of discharge. Problem - Discharge Plan Assessment: Acute COPD exacerbation Currently back to baseline on 3 L home oxygen discharged on azithromycin and cefdinir Follow-up with PCP. Erosive gastritis Discharged on pantoprazole Follow-up with GI Plan - Discharge Medications Prescriptions: Azithromycin 250 mg PO DAILY 2 Days #2 tablet Cefdinir [Omnicef] 300 mg PO BID #10 cap Pantoprazole [Protonix] 40 mg PO BID #60 tab Sucralfate 1 gm PO TID #21 tablet Home Medications: Medication Instructions Recorded Confirmed Type Atorvastatin Calcium [Lipitor] 20 mg PO HS 11/03/15 01/24/20 History Cetirizine HCl [Allergy Relief] 10 mg PO DAILY 11/03/15 01/24/20 History Aspirin [Ecotrin Low Strength] 81 mg PO DAILY tab 03/26/17 01/24/20 Rx Amlodipine [Norvasc] 10 mg PO DAILY 07/02/17 01/24/20 History Lisinopril [Zestril] 10 mg PO DAILY 07/02/17 01/24/20 History glipiZIDE [Glipizide] 5 mg PO DAILY 07/02/17 01/24/20 History traZODone HCl [Trazodone HCl] 50 mg PO HS PRN 07/02/17 01/24/20 History Metoprolol Succinate [Toprol XL] 100 mg PO DAILY 06/26/19 01/24/20 History Multivitamin 1 each PO DAILY 06/26/19 01/25/20 History Spironolactone 25 mg PO DAILY 06/26/19 01/24/20 History Torsemide 2 tab PO DAILY 06/26/19 01/24/20 History Ipratropium/Albuterol Sulfate 3 ml NEB [id number] PRN #1 neb 06/30/19 01/24/20 Rx [DuoNeb] Albuterol Sulfate [Proventil Hfa] 2 puff NASAL PRN PRN 01/24/20 01/24/20 History Budesonide/Formoterol Fumarate 2 puff NASAL BID 01/24/20 01/24/20 History [Budesonide-Formoterol 160-4.5] Cyanocobalamin (Vitamin B-12) 1,000 mcg PO DAILY 01/24/20 01/24/20 History [Vitamin B12] Ipratropium [place] [Atrovent] 2.4 ml NEB TID 01/24/20 01/24/20 History Tiotropium [place] [Spiriva] 1 capsule PO BID 01/24/20 01/24/20 History metFORMIN HCl [Metformin HCl] 0.5 tab PO BID 01/24/20 01/24/20 History Azithromycin 250 mg PO DAILY 2 Days #2 tablet 01/31/20 Rx Cefdinir [Omnicef] 300 mg PO BID #10 cap 01/31/20 Rx Pantoprazole [Protonix] 40 mg PO BID #60 tab 01/31/20 Rx Sucralfate 1 gm PO TID #21 tablet 01/31/20 Rx Allergies: No Known Drug Allergies Allergy (Verified 05/26/19 11:49) per pt - Discharge Instructions Activity:: Activity as Tolerated Therapies:: Home Health, Physical Therapy - Follow up Plan Referrals: [facility] [place]) [Outside] (nursing with physical therapy services.) [facility] [ Not on Staff] - [facility] Days [facility] a [facility] Juli Petersen FNP [Primary Care Provider] - 10 Days (reasses PUD) Disposition: HOME HEALTH Quality - Care Measures CORE MEASURES:: N/A
--- NOTE | 2020-02-03 23:22 | PQF ---
CLINICAL DOCUMENTATION CLARIFICATION FORM: Dear : Oscar aBnda Date / Time: 02/04/2020 Please exercise your independent, professional judgment in responding to the clarification form. Clinical indicators are provided on the bottom of this form for your review Please check appropriate box(es): [ ] Sepsis [ ] Localized infection without sepsis [ ] Other diagnosis [ x ] Unable to determine In addition, please specify: Present on Admission (POA): [ ] Yes [ ] No [ x ] Unable to determine To be completed by CDI/Coding staff for physician review: Present Clinical Indicators - Signs / Symptoms / Labs Results and Location in Medical Record [ x ] Possible sepsis Leukocytosis with lactic acidosis and tachypnea, however, no fevers. Continue broad-spectrum antibiotics for now and monitor Progress note 01/27 by Oscar Banda MD [ x ] Lactic acidosis, lactate elevated at 5.4, unclear cause of elevation. Possible sepsis, however no focus. Continue broad-spectrum antibiotics for now and monitor Progress note 01/27 by Oscar Banda MD [ x ] Respiratory rates were 24, 30, 36, 38, 36, 34. Blood pressures were 195/78, 172/74, 165/81, 186/84, 165/81. Heart rates were 117, 118, 118. ED provider notes [ x ] WBCs were 28.6, 38.0, 45.0, 33.4, 32.8. Lactic acid levels were 5.3, 5.4 and 4.4 Laboratory [ x ] Concerns for pneumonia. Patient likely ahuja pneumonia Progress note 01/29/20 by Oscar Banda MD Present Risk Factors Results and Location in Medical Record [ x ] Pneumonia, acute hypoxic respiratory failure, pneumonia, lactic acidosis, COPD exacerbation Progress note 01/29/20 by Oscar Banda MD Present Treatments Results and Location in Medical Record [ x ] IV Zosyn 01/26-01/28 Medications [ x ] IV Vancomycin 01/26-01/28 Medications [ x ] IV Rocephin and IV Zithromax 01/28-01/30 Medications [ x ] Daily CBCs Laboratory [ x ] IV ?uids 01/23-01/30 Medications CDS/Combination Presser Signature: [id number] Phone #: Date/Time: 02/04/2020 This is a permanent part of the Medical Record [facility]
== END 2020-01-31 15:00 | disposition home health service (06) | DRG 193 ==
LOC: ERS 10:12 → 2NO 18:19
PROVIDERS: ADMIT Emergency Medicine; ATTEND Emergency Medicine
PROC: 0DB68ZX Excision of Stomach, Via Natural or Artificial Opening Endoscopic, Diagnostic (ICD-10-PCS; principal; 2020-01-30)
DX: J18.9 Pneumonia, unspecified organism (principal); J96.01 Acute respiratory failure with hypoxia; J44.1 Chronic obstructive pulmonary disease with (acute) exacerbation; I50.22 Chronic systolic (congestive) heart failure; E87.1 Hypo-osmolality and hyponatremia; E87.2 Acidosis; K92.0 Hematemesis; J44.0 Chronic obstructive pulmonary disease with (acute) lower respiratory infection; Z20.828 Contact with and (suspected) exposure to other viral communicable diseases; G47.33 Obstructive sleep apnea (adult) (pediatric); I25.10 Atherosclerotic heart disease of native coronary artery without angina pectoris; E78.5 Hyperlipidemia, unspecified; I48.0 Paroxysmal atrial fibrillation; R13.19 Other dysphagia; K29.70 Gastritis, unspecified, without bleeding; K20.80 Other esophagitis without bleeding; K25.9 Gastric ulcer, unspecified as acute or chronic, without hemorrhage or perforation; E11.65 Type 2 diabetes mellitus with hyperglycemia; I11.0 Hypertensive heart disease with heart failure; Z99.81 Dependence on supplemental oxygen; Z79.01 Long term (current) use of anticoagulants; Z95.5 Presence of coronary angioplasty implant and graft; Z87.891 Personal history of nicotine dependence
CPT/HCPCS: 36415; 36416; 71045; 74176; 80048; 80053; 81003; 81015; 83605; 83735; 83880; 84145; 84484; 85025; 85610; 87040; 88305; 88312; 93005; 93010; 93306; 94640; 96365; 96375; C9113; J0456; J0696; J1650; J1815; J1940; J2405; J2543; J2704; J2920; J2930; J3010; J3370; J3475; J3490; J7050; J7512; J7611; J7620; Q0162; U0002

== ENCOUNTER 2020-02-05 21:15 | Emergency (ER) | payer MEDICARE ==
--- NOTE | 2020-02-05 22:31 | RAD ---
Chest AP view INDICATION: Dyspnea COMPARISON: Prior exam dated January 24, 2020 FINDINGS: Lungs: Chronic lung changes are stable Cardiac silhouette: Mild cardiomegaly and multi lead pacemaker are stable. Pulmonary vasculature: Normal Pleural spaces: No pleural effusion or pneumothorax is demonstrated. Upper abdomen: No abnormality seen. Osseous structures: No acute osseous abnormality. Additional findings: None. IMPRESSION: No acute cardiopulmonary abnormality.
[2020-02-05 22:36] LABS: Hemoglobin 11.1 g/dL (14.0-18.0); Mean Corpuscular HGB CONC 30.4 g/dL (32.0-36.0); Mean Corpuscular Hemoglobin 25.3 pg (27.0-31.0); Mean Corpuscular Volume 83.1 fL (78.0-98.0); Mean Platelet Volume 8.7 fL (7.4-10.4); Platelet Count 256 thou/uL (130-400); RBC Distribution Width 18.4 % (11.5-14.5); White Blood Cell (WBC) Count 23.6 thou/uL (4.8-10.8)
[2020-02-05 22:54] LABS: Hypochromia SLIGHT = 6-15 cells (100X) (0-5/hpf); Lymphocytes 7 % (21-51); MDiff Complete? YES; Monocytes 11 % (0-10); Neutrophil 82 % (42-75); Platelet Morphology Comment Appears Adequate
[2020-02-05 22:56] LABS: ALT (SGPT) 22 U/L (8-55); AST (SGOT) 18 U/L (5-34); Albumin 3.4 g/dL (3.4-4.8); Alkaline Phosphatase 79 U/L (40-110); Anion Gap 14 mmol/L (10-20); BUN (Urea Nitrogen) 9 mg/dL (8.4-25.7); Bilirubin, Total 0.9 mg/dL (0.2-1.2); CK (CPK) 35 U/L (30-200); Calc. Creatinine Clearance 0 mL/min (70-130); Calcium 8.7 mg/dL (7.8-10.44); Carbon Dioxide 25 mmol/L (23-31); Chloride 97 mmol/L (98-107); Estimated GFR-MDRD Greater than 90; Globulin 2.4 g/dL (2.4-3.5); Glucose 150 mg/dL (83-110); Potassium 3.4 mmol/L (3.5-5.1); Protein, Total 5.8 g/dL (5.8-8.1); Sodium 133 mmol/L (136-145)
== END 2020-02-06 00:04 ==
LOC: ERS 21:15
DX: J44.9 Chronic obstructive pulmonary disease, unspecified (principal); I48.91 Unspecified atrial fibrillation; I10 Essential (primary) hypertension; E11.9 Type 2 diabetes mellitus without complications; I25.2 Old myocardial infarction; F41.9 Anxiety disorder, unspecified; Z87.891 Personal history of nicotine dependence; Z79.899 Other long term (current) drug therapy
CPT/HCPCS: 36415; 71045; 80053; 82550; 84484; 85025; 93005

== ENCOUNTER 2020-05-07 22:03 | Inpatient (IN) | payer MEDICARE ==
[2020-05-07] MEDS ORDERED: Albuterol Sulfate 2.5 mg/3 ml Neb ONE ×3 (22:18→23:32)
[2020-05-07] MEDS ORDERED: Cefepime 2 GM VIAL ONE (22:38)
[2020-05-07] MEDS ORDERED: methylPREDNISolone Sod Succ/PF 125 MG/2 ML VIAL ONE (22:38)
[2020-05-07 22:41] LABS: Actual Bicarbonate (HCO3v) 26 mEq/L (22-28); Analyzer IN Cardio ER; Base Excess 0.4 mEq/L (-2.0 to +3.0); Calcium, Ionized (venous) 1.17 mmol/L (1.16-1.32); Chloride (VBG) 97 mmol/L (98-106); Hemoglobin (Hb) 13.1 g/dL (12.6-17.4); Potassium (VBG) 4.38 mmol/L (3.70-5.30); Sodium 132.6 mmol/L (133-146); pH (venous) 7.37 (7.32-7.43)
[2020-05-07 22:54] LABS: Hemoglobin 13.5 g/dL (14.0-18.0); Mean Corpuscular HGB CONC 31.4 g/dL (32.0-36.0); Mean Corpuscular Hemoglobin 28.3 pg (27.0-31.0); Mean Platelet Volume 10.7 fL (7.4-10.4); Platelet Count 228 thou/uL (130-400); RBC Distribution Width 17.6 % (11.5-14.5); Red Blood Cell (RBC) Count 4.79 mill/uL (4.70-6.10); White Blood Cell (WBC) Count 24.8 thou/uL (4.8-10.8)
[2020-05-07 23:06] LABS: ALT (SGPT) 21 U/L (8-55); AST (SGOT) 18 U/L (5-34); Albumin 4.5 g/dL (3.4-4.8); Alkaline Phosphatase 98 U/L (40-110); Anion Gap 16 mmol/L (10-20); BUN (Urea Nitrogen) 22 mg/dL (8.4-25.7); Bilirubin, Total 0.8 mg/dL (0.2-1.2); Calc. Creatinine Clearance 0 mL/min (70-130); Calcium 9.7 mg/dL (7.8-10.44); Carbon Dioxide 27 mmol/L (23-31); Chloride 94 mmol/L (98-107); Globulin 3.6 g/dL (2.4-3.5); Glucose 333 mg/dL (83-110); Lipase 68 U/L (8-78); Potassium 4.4 mmol/L (3.5-5.1); Protein, Total 8.1 g/dL (5.8-8.1); Sodium 133 mmol/L (136-145)
[2020-05-07 23:10] LABS: Band 1 % (5-11); Eosinophils 1 % (0-10); Lymphocytes 2 % (21-51); MDiff Complete? YES; Monocytes 11 % (0-10); Neutrophil 84 % (42-75)
[2020-05-08 00:03] LABS: SARS-CoV-2 NAA Rapid Test Not Detected (NotDetected)
[2020-05-08 01:54] LABS: Bacteria/HPF None Seen HPF (None Seen); Bilirubin Negative (Negative); Blood, Urine Negative (Negative); Clarity Clear (Clear); Glucose, Urine (Dipstick) Greater than 1000 mg/dL (Negative); Ketone, Urine Negative (Negative); Leukocyte 500 Leu/uL (Negative); Nitrite Negative (Negative); Protein, Urine (Dipstick) 30 mg/dL (Neg-Trace); Specific Gravity, Urine 1.024 (1.002-1.036); Squamous Epithelial 0-3 HPF (0-3); Urobilinogen Normal mg/dL (Less than 2); WBC/HPF 21-50 HPF (0-3)
[2020-05-08] MEDS ORDERED: Albuterol Sulfate 2.5 mg/3 ml Neb NEB PRN (02:55)
[2020-05-08] MEDS ORDERED: Furosemide 40 MG/4 ML VIAL SLOW IVP SCH (03:15)
[2020-05-08] MEDS ORDERED: cefTRIAXone\\ROCEPHIN 1 GM VIAL ONE (03:46)
[2020-05-08] MEDS ORDERED: Furosemide 40 MG/4 ML VIAL ONE (03:46)
[2020-05-08] MEDS: cefTRIAXone\\ROCEPHIN 1 GM in Sodium Chloride 0.9% 100 ML IVPB SCH (03:52)
[2020-05-08] MEDS ORDERED: Azithromycin 500 MG in Sodium Chloride 0.9% 250 ML 250 ML IVPB SCH (04:00)
[2020-05-08 04:13] LABS: #Lymphocytes 0.3 thou/uL (1.20-3.40); #Monocytes 0.2 thou/uL (0.11-0.59); #Neutrophils 15.2 thou/uL (1.40-6.50); %Basophils 0.1 % (0.0-1.0); %Eosinophils 0.3 % (0.0-10.0); %Lymphocytes 1.7 % (21.0-51.0); %Monocytes 0.9 % (0.0-10.0); Hemoglobin 13.3 g/dL (14.0-18.0); Mean Corpuscular HGB CONC 32.3 g/dL (32.0-36.0); Mean Corpuscular Hemoglobin 28.6 pg (27.0-31.0); Mean Corpuscular Volume 88.6 fL (78.0-98.0); Mean Platelet Volume 10.3 fL (7.4-10.4); Platelet Count 178 thou/uL (130-400); RBC Distribution Width 17.4 % (11.5-14.5); Red Blood Cell (RBC) Count 4.65 mill/uL (4.70-6.10); White Blood Cell (WBC) Count 15.7 thou/uL (4.8-10.8)
[2020-05-08 04:28] LABS: Lactic Acid 2.3 mmol/L (0.5-2.2)
[2020-05-08 04:31] LABS: Anion Gap 17 mmol/L (10-20); BUN (Urea Nitrogen) 21 mg/dL (8.4-25.7); Calc. Creatinine Clearance 0 mL/min (70-130); Calcium 9.6 mg/dL (7.8-10.44); Carbon Dioxide 24 mmol/L (23-31); Chloride 96 mmol/L (98-107); Glucose 376 mg/dL (83-110); Potassium 4.5 mmol/L (3.5-5.1); Sodium 132 mmol/L (136-145)
[2020-05-08] MEDS ORDERED: Albuterol Sulfate 2.5 mg/3 ml Neb ONE (07:55)
[2020-05-08] MEDS: Albuterol Sulfate 2.5 mg/3 ml Neb NEB SCH ×5 (07:58→22:37)
[2020-05-08] MEDS ORDERED: methylPREDNISolone Sod Succ 40 MG VIAL IVP SCH (09:00)
[2020-05-08] MEDS ORDERED: Doxycycline 100 MG in Syringe 0 ML IVPB SCH (09:00)
[2020-05-08] MEDS ORDERED: Dextrose 50% Abboject 50 ML SYRINGE SLOW IVP PRN (09:06)
[2020-05-08] MEDS ORDERED: Dextrose 5% in Water 1,000 ML IV PRN (09:06)
[2020-05-08] MEDS: methylPREDNISolone Sod Succ/PF 125 MG/2 ML VIAL IVP SCH ×3 (11:13→23:41)
[2020-05-08 11:17] VITALS: BMI 26.0
[2020-05-08] MEDS: Furosemide 40 MG/4 ML VIAL SLOW IVP SCH (11:47)
[2020-05-08] MEDS: Enoxaparin Sodium 40 MG/0.4 ML SYRINGE SC SCH (11:48)
[2020-05-08] MEDS: HumaLOG 300 UNITS/3 ML VIAL SC PRN ×2 (12:08→17:11)
[2020-05-08] MEDS ORDERED: Pantoprazole 40 MG VIAL IVP SCH (13:00)
[2020-05-08] MEDS: Ondansetron PF 4 MG/2 ML Vial IVP PRN ×2 (13:02→23:45)
[2020-05-08] MEDS: Promethazine HCl 6.25 MG in Sodium Chloride 0.9% 50 ML IVPB PRN (18:30)
[2020-05-08] MEDS: Insulin Glargine 20 UNITS in Pre-Filled Syringe 1 EACH SC SCH (20:42)
[2020-05-08] MEDS: Pantoprazole 40 MG VIAL IVP SCH (20:44)
[2020-05-09] MEDS: hydrALAZINE 20 MG/ML VIAL SLOW IVP PRN ×2 (00:01→17:08)
[2020-05-09] MEDS: Albuterol Sulfate 2.5 mg/3 ml Neb NEB SCH ×6 (02:14→22:05)
[2020-05-09] MEDS: Promethazine HCl 6.25 MG in Sodium Chloride 0.9% 50 ML IVPB PRN ×2 (02:16→14:36)
[2020-05-09] MEDS: cefTRIAXone\\ROCEPHIN 1 GM in Sodium Chloride 0.9% 100 ML IVPB SCH (02:44)
[2020-05-09] MEDS ORDERED: Lidocaine 2% Viscous Solution 10 ML, Aluminum & Magnesium Hydroxide 30 ML SSW SCH (04:00)
[2020-05-09] MEDS: Ondansetron PF 4 MG/2 ML Vial IVP PRN (05:34)
[2020-05-09] MEDS: methylPREDNISolone Sod Succ/PF 125 MG/2 ML VIAL IVP SCH ×4 (05:37→23:15)
[2020-05-09] MEDS: HumaLOG 300 UNITS/3 ML VIAL SC PRN ×3 (05:40→16:50)
[2020-05-09 07:20] LABS: Hemoglobin 12.2 g/dL (14.0-18.0); Mean Corpuscular Hemoglobin 28.1 pg (27.0-31.0); Mean Corpuscular Volume 90.6 fL (78.0-98.0); Mean Platelet Volume 10.3 fL (7.4-10.4); Platelet Count 212 thou/uL (130-400); RBC Distribution Width 17.5 % (11.5-14.5); Red Blood Cell (RBC) Count 4.32 mill/uL (4.70-6.10)
[2020-05-09 07:28] LABS: Anion Gap 18 mmol/L (10-20); BUN (Urea Nitrogen) 34 mg/dL (8.4-25.7); Calc. Creatinine Clearance 63 mL/min (70-130); Calcium 9.4 mg/dL (7.8-10.44); Carbon Dioxide 27 mmol/L (23-31); Chloride 96 mmol/L (98-107); Glucose 380 mg/dL (83-110); Lactic Acid 1.2 mmol/L (0.5-2.2); Lipase 6 U/L (8-78); Magnesium 2.3 mg/dL (1.6-2.6); Potassium 3.9 mmol/L (3.5-5.1); Sodium 137 mmol/L (136-145)
[2020-05-09 07:30] LABS: ALT (SGPT) 24 U/L (8-55); AST (SGOT) 17 U/L (5-34); Alkaline Phosphatase 76 U/L (40-110); Bilirubin, Direct 0.4 mg/dL (0.1-0.3); Bilirubin, Total 0.8 mg/dL (0.2-1.2)
[2020-05-09 08:56] LABS: Band 3 % (5-11); Large Platelets SLIGHT; Lymphocytes 2 % (21-51); MDiff Complete? YES; Monocytes 5 % (0-10); Neutrophil 90 % (42-75); Ovalocytes SLIGHT = 2-5 cells (100X) (0-1/hpf); Platelet Morphology Comment Appears Adequate; Polychromasia SLIGHT = 2-3 cells (100X) (0-2/hpf)
[2020-05-09] MEDS: Enoxaparin Sodium 40 MG/0.4 ML SYRINGE SC SCH (08:56)
[2020-05-09] MEDS: Furosemide 40 MG/4 ML VIAL SLOW IVP SCH (08:56)
[2020-05-09] MEDS: Pantoprazole 40 MG VIAL IVP SCH ×2 (08:56→20:16)
[2020-05-09] MEDS ORDERED: Morphine 2 MG/ML VIAL SLOW IVP PRN (11:41)
[2020-05-09] MEDS ORDERED: Mometasone 100 MCG/Formoterol 5 MCG 120 PUFF INHALER INH SCH (13:00)
[2020-05-09] MEDS: Mometasone 100 MCG/Formoterol 5 MCG 120 PUFF INHALER INH SCH (18:09)
[2020-05-09] MEDS ORDERED: Amlodipine 5 MG TAB PO SCH (18:30)
[2020-05-09] MEDS: Atorvastatin Calcium 20 MG TAB PO SCH (20:15)
[2020-05-09] MEDS: Apixaban 5 MG TAB PO SCH (20:16)
[2020-05-09] MEDS: Insulin Glargine 20 UNITS in Pre-Filled Syringe 1 EACH SC SCH (22:11)
[2020-05-09] MEDS: Acetaminophen 325 MG TAB PO PRN (23:15)
[2020-05-10] MEDS: cefTRIAXone\\ROCEPHIN 1 GM in Sodium Chloride 0.9% 100 ML IVPB SCH (02:35)
[2020-05-10] MEDS: Albuterol Sulfate 2.5 mg/3 ml Neb NEB SCH ×6 (02:45→23:40)
[2020-05-10] MEDS: HumaLOG 300 UNITS/3 ML VIAL SC PRN ×3 (03:19→17:27)
[2020-05-10] MEDS: methylPREDNISolone Sod Succ/PF 125 MG/2 ML VIAL IVP SCH ×4 (05:22→23:12)
[2020-05-10] MEDS: hydrALAZINE 20 MG/ML VIAL SLOW IVP PRN ×3 (05:50→23:15)
[2020-05-10 06:54] LABS: Band 20 % (5-11); Hemoglobin 12.4 g/dL (14.0-18.0); MDiff Complete? YES; Mean Corpuscular HGB CONC 33.1 g/dL (32.0-36.0); Mean Corpuscular Hemoglobin 29.2 pg (27.0-31.0); Mean Corpuscular Volume 88.2 fL (78.0-98.0); Mean Platelet Volume 10.8 fL (7.4-10.4); Monocytes 6 % (0-10); Neutrophil 74 % (42-75); Platelet Count 223 thou/uL (130-400); Platelet Morphology Comment Appears Adequate; RBC Distribution Width 17.5 % (11.5-14.5); Red Blood Cell (RBC) Count 4.24 mill/uL (4.70-6.10); White Blood Cell (WBC) Count 28.7 thou/uL (4.8-10.8)
[2020-05-10 07:00] LABS: Anion Gap 18 mmol/L (10-20); BUN (Urea Nitrogen) 40 mg/dL (8.4-25.7); Calc. Creatinine Clearance 73 mL/min (70-130); Calcium 9.4 mg/dL (7.8-10.44); Carbon Dioxide 26 mmol/L (23-31); Chloride 95 mmol/L (98-107); Glucose 317 mg/dL (83-110); Magnesium 2.4 mg/dL (1.6-2.6); Potassium 3.4 mmol/L (3.5-5.1); Sodium 136 mmol/L (136-145)
[2020-05-10] MEDS: Amlodipine 10 MG TAB PO SCH (08:43)
[2020-05-10] MEDS: Apixaban 5 MG TAB PO SCH ×2 (08:43→20:17)
[2020-05-10] MEDS: Aspirin 81 mg Enteric Coated Tablet PO SCH (08:43)
[2020-05-10] MEDS: Furosemide 40 MG/4 ML VIAL SLOW IVP SCH (08:43)
[2020-05-10] MEDS: Polyethylene Glycol 3350 17 GM Packet PO SCH (08:44)
[2020-05-10] MEDS: Pantoprazole 40 MG VIAL IVP SCH ×2 (08:44→20:18)
[2020-05-10] MEDS: Mometasone 100 MCG/Formoterol 5 MCG 120 PUFF INHALER INH SCH ×2 (10:06→19:44)
[2020-05-10] MEDS ORDERED: Potassium Chloride 20 MEQ TAB PO SCH (11:15)
[2020-05-10] MEDS: Lorazepam 0.5 MG TAB PO PRN (12:33)
[2020-05-10] MEDS ORDERED: Magnesium Citrate 300 ML BOT PO SCH (17:45)
[2020-05-10] MEDS: Insulin Glargine 30 UNITS in Pre-Filled Syringe 1 EACH SC SCH (20:17)
[2020-05-10] MEDS: Atorvastatin Calcium 20 MG TAB PO SCH (20:17)
[2020-05-11] MEDS: cefTRIAXone\\ROCEPHIN 1 GM in Sodium Chloride 0.9% 100 ML IVPB SCH (02:15)
[2020-05-11] MEDS: Albuterol Sulfate 2.5 mg/3 ml Neb NEB SCH ×6 (03:04→23:02)
[2020-05-11] MEDS: methylPREDNISolone Sod Succ/PF 125 MG/2 ML VIAL IVP SCH (05:41)
[2020-05-11] MEDS: hydrALAZINE 20 MG/ML VIAL SLOW IVP PRN (05:43)
[2020-05-11] MEDS: HumaLOG 300 UNITS/3 ML VIAL SC PRN ×3 (05:44→17:02)
[2020-05-11 06:32] LABS: Hemoglobin 12.9 g/dL (14.0-18.0); Hypochromia SLIGHT = 6-15 cells (100X) (0-5/hpf); MDiff Complete? YES; Mean Corpuscular HGB CONC 32.2 g/dL (32.0-36.0); Mean Corpuscular Hemoglobin 28.7 pg (27.0-31.0); Mean Corpuscular Volume 89.3 fL (78.0-98.0); Mean Platelet Volume 10.3 fL (7.4-10.4); Monocytes 19 % (0-10); Neutrophil 81 % (42-75); Platelet Count 211 thou/uL (130-400); Platelet Morphology Comment Appears Adequate; RBC Distribution Width 17.7 % (11.5-14.5); Red Blood Cell (RBC) Count 4.49 mill/uL (4.70-6.10); White Blood Cell (WBC) Count 22.7 thou/uL (4.8-10.8)
[2020-05-11 06:38] LABS: Anion Gap 15 mmol/L (10-20); BUN (Urea Nitrogen) 36 mg/dL (8.4-25.7); Calc. Creatinine Clearance 71 mL/min (70-130); Calcium 8.7 mg/dL (7.8-10.44); Carbon Dioxide 27 mmol/L (23-31); Chloride 94 mmol/L (98-107); Glucose 401 mg/dL (83-110); Sodium 132 mmol/L (136-145)
[2020-05-11] MEDS: Mometasone 100 MCG/Formoterol 5 MCG 120 PUFF INHALER INH SCH ×2 (07:08→19:43)
[2020-05-11] MEDS: Pantoprazole 40 MG VIAL IVP SCH ×2 (08:28→20:45)
[2020-05-11] MEDS: Polyethylene Glycol 3350 17 GM Packet PO SCH (08:29)
[2020-05-11] MEDS: Aspirin 81 mg Enteric Coated Tablet PO SCH (08:29)
[2020-05-11] MEDS: Amlodipine 10 MG TAB PO SCH (08:29)
[2020-05-11] MEDS: Apixaban 5 MG TAB PO SCH ×2 (08:29→20:42)
[2020-05-11] MEDS: Furosemide 40 MG/4 ML VIAL SLOW IVP SCH (08:29)
[2020-05-11] MEDS ORDERED: Mineral Oil ENEMA PR SCH (11:15)
[2020-05-11] MEDS: Lorazepam 0.5 MG TAB PO PRN (12:49)
[2020-05-11] MEDS: Atorvastatin Calcium 20 MG TAB PO SCH (20:41)
[2020-05-11] MEDS: Insulin Glargine 30 UNITS in Pre-Filled Syringe 1 EACH SC SCH (20:45)
[2020-05-12] MEDS: cefTRIAXone\\ROCEPHIN 1 GM in Sodium Chloride 0.9% 100 ML IVPB SCH (02:31)
[2020-05-12] MEDS: Albuterol Sulfate 2.5 mg/3 ml Neb NEB SCH ×6 (03:25→23:42)
[2020-05-12] MEDS: Mometasone 100 MCG/Formoterol 5 MCG 120 PUFF INHALER INH SCH ×2 (06:20→21:20)
[2020-05-12] MEDS ORDERED: methylPREDNISolone Sod Succ/PF 125 MG/2 ML VIAL IVP SCH (09:00)
[2020-05-12] MEDS: Pantoprazole 40 MG VIAL IVP SCH ×2 (09:01→21:13)
[2020-05-12] MEDS: Aspirin 81 mg Enteric Coated Tablet PO SCH (09:01)
[2020-05-12] MEDS: Amlodipine 10 MG TAB PO SCH (09:01)
[2020-05-12] MEDS: Furosemide 40 MG/4 ML VIAL SLOW IVP SCH (09:02)
[2020-05-12] MEDS: Polyethylene Glycol 3350 17 GM Packet PO SCH (09:02)
[2020-05-12] MEDS: Apixaban 5 MG TAB PO SCH ×2 (09:02→21:13)
[2020-05-12] MEDS ORDERED: Fentanyl 100 MCG/2 ML VIAL ONE (09:25)
[2020-05-12] MEDS ORDERED: Ketamine 50 MG/ML (10ML VIAL) ONE (09:26)
[2020-05-12] MEDS ORDERED: PROPOFOL 200 MG/20 ML VIAL ONE (10:01)
[2020-05-12] MEDS ORDERED: Lidocaine 1% PF 5 ML VIAL ONE (10:01)
[2020-05-12] MEDS ORDERED: Ondansetron PF 4 MG/2 ML Vial ONE (10:01)
[2020-05-12] MEDS ORDERED: Succinylcholine 200 MG/10 ml SYRINGE FS ONE (10:01)
[2020-05-12] MEDS ORDERED: Ondansetron HCl/PF 4 MG/2 ML Vial IVP PRN (10:35)
[2020-05-12] MEDS ORDERED: Promethazine HCl 25 MG/ML VIAL IM PRN (10:35)
[2020-05-12] MEDS ORDERED: Promethazine HCl 25 MG/ML VIAL SLOW IVP PRN (10:35)
[2020-05-12 11:16] LABS: Actual Bicarbonate (HCO3v) 24 mEq/L (22-28); Base Excess 1.3 mEq/L (-2.0 to +3.0); Calcium, Ionized (venous) 1.04 mmol/L (1.16-1.32); Chloride (VBG) 101 mmol/L (98-106); Hemoglobin (Hb) 14.2 g/dL (12.6-17.4); Potassium (VBG) 4.27 mmol/L (3.70-5.30); Sodium 132.3 mmol/L (133-146); pH (venous) 7.47 (7.32-7.43)
[2020-05-12] MEDS ORDERED: MD-Gastroview 120 ML BOT ONE (12:19)
[2020-05-12] MEDS: HumaLOG 300 UNITS/3 ML VIAL SC PRN ×2 (17:45→21:19)
[2020-05-12] MEDS: Insulin Glargine 30 UNITS in Pre-Filled Syringe 1 EACH SC SCH (21:13)
[2020-05-12] MEDS: Metoclopramide HCl 10 MG/2 ML VIAL IVP SCH (21:13)
[2020-05-12] MEDS: Atorvastatin Calcium 20 MG TAB PO SCH (21:13)
[2020-05-12] MEDS: hydrALAZINE 20 MG/ML VIAL SLOW IVP PRN (21:21)
[2020-05-13] MEDS: Albuterol Sulfate 2.5 mg/3 ml Neb NEB SCH ×6 (02:58→23:30)
[2020-05-13] MEDS: hydrALAZINE 20 MG/ML VIAL SLOW IVP PRN ×2 (04:52→17:03)
[2020-05-13] MEDS: Mometasone 100 MCG/Formoterol 5 MCG 120 PUFF INHALER INH SCH ×2 (05:38→18:59)
[2020-05-13 06:17] LABS: Anion Gap 18 mmol/L (10-20); BUN (Urea Nitrogen) 27 mg/dL (8.4-25.7); Calc. Creatinine Clearance 92 mL/min (70-130); Calcium 8.6 mg/dL (7.8-10.44); Carbon Dioxide 19 mmol/L (23-31); Chloride 108 mmol/L (98-107); Glucose 178 mg/dL (83-110); Sodium 141 mmol/L (136-145)
[2020-05-13 06:18] LABS: Hemoglobin 15.1 g/dL (14.0-18.0); Lymphocytes 7 % (21-51); MDiff Complete? YES; Mean Corpuscular HGB CONC 34.7 g/dL (32.0-36.0); Mean Corpuscular Hemoglobin 31.1 pg (27.0-31.0); Mean Corpuscular Volume 89.6 fL (78.0-98.0); Mean Platelet Volume 11.1 fL (7.4-10.4); Monocytes 9 % (0-10); Neutrophil 84 % (42-75); Platelet Morphology Comment PLT clumps seen-ADEQ; RBC Distribution Width 18.1 % (11.5-14.5); RBC Morphology Normal; Red Blood Cell (RBC) Count 4.85 mill/uL (4.70-6.10); White Blood Cell (WBC) Count 23.7 thou/uL (4.8-10.8)
[2020-05-13] MEDS: Aspirin 81 mg Enteric Coated Tablet PO SCH (09:19)
[2020-05-13] MEDS: Metoclopramide HCl 10 MG/2 ML VIAL IVP SCH ×2 (09:19→21:25)
[2020-05-13] MEDS: Apixaban 5 MG TAB PO SCH ×2 (09:19→21:24)
[2020-05-13] MEDS: Amlodipine 10 MG TAB PO SCH (09:19)
[2020-05-13] MEDS: Furosemide 40 MG/4 ML VIAL SLOW IVP SCH (09:19)
[2020-05-13] MEDS: methylPREDNISolone Sod Succ/PF 125 MG/2 ML VIAL IVP SCH (09:20)
[2020-05-13] MEDS: Polyethylene Glycol 3350 17 GM Packet PO SCH (09:20)
[2020-05-13] MEDS: Pantoprazole 40 MG VIAL IVP SCH ×2 (09:20→21:25)
[2020-05-13] MEDS: HumaLOG 300 UNITS/3 ML VIAL SC PRN (16:58)
[2020-05-13] MEDS: Atorvastatin Calcium 20 MG TAB PO SCH (21:24)
[2020-05-13] MEDS: Insulin Glargine 30 UNITS in Pre-Filled Syringe 1 EACH SC SCH (23:29)
[2020-05-14] MEDS: Acetaminophen 325 MG TAB PO PRN (02:24)
[2020-05-14] MEDS: Albuterol Sulfate 2.5 mg/3 ml Neb NEB SCH ×6 (02:24→23:18)
[2020-05-14] MEDS: HumaLOG 300 UNITS/3 ML VIAL SC PRN ×4 (06:02→21:16)
[2020-05-14] MEDS: Mometasone 100 MCG/Formoterol 5 MCG 120 PUFF INHALER INH SCH ×2 (07:39→18:57)
[2020-05-14] MEDS: Furosemide 40 MG/4 ML VIAL SLOW IVP SCH (08:53)
[2020-05-14] MEDS: methylPREDNISolone Sod Succ/PF 125 MG/2 ML VIAL IVP SCH (08:53)
[2020-05-14] MEDS: Pantoprazole 40 MG VIAL IVP SCH ×2 (08:53→21:17)
[2020-05-14] MEDS: Apixaban 5 MG TAB PO SCH ×2 (08:53→21:15)
[2020-05-14] MEDS: Amlodipine 10 MG TAB PO SCH (08:53)
[2020-05-14] MEDS: Aspirin 81 mg Enteric Coated Tablet PO SCH (08:53)
[2020-05-14] MEDS: Polyethylene Glycol 3350 17 GM Packet PO SCH (08:54)
[2020-05-14] MEDS: Metoclopramide HCl 10 MG/2 ML VIAL IVP SCH ×2 (09:05→21:15)
[2020-05-14] MEDS: Atorvastatin Calcium 20 MG TAB PO SCH (21:15)
[2020-05-14] MEDS: Insulin Glargine 30 UNITS in Pre-Filled Syringe 1 EACH SC SCH (21:17)
[2020-05-14] MEDS: Sodium Chloride 0.9% 1,000 ML IV SCH (21:24)
[2020-05-15] MEDS: Albuterol Sulfate 2.5 mg/3 ml Neb NEB SCH ×6 (03:11→22:13)
[2020-05-15] MEDS: Mometasone 100 MCG/Formoterol 5 MCG 120 PUFF INHALER INH SCH ×2 (07:05→18:33)
[2020-05-15 07:13] LABS: Hemoglobin 13.6 g/dL (14.0-18.0); Mean Corpuscular Hemoglobin 29.9 pg (27.0-31.0); Mean Corpuscular Volume 88.1 fL (78.0-98.0); Mean Platelet Volume 10.3 fL (7.4-10.4); Platelet Count 179 thou/uL (130-400); Red Blood Cell (RBC) Count 4.55 mill/uL (4.70-6.10); White Blood Cell (WBC) Count 25.9 thou/uL (4.8-10.8)
[2020-05-15 07:14] LABS: Anion Gap 12 mmol/L (10-20); BUN (Urea Nitrogen) 21 mg/dL (8.4-25.7); Calc. Creatinine Clearance 100 mL/min (70-130); Calcium 8.2 mg/dL (7.8-10.44); Carbon Dioxide 24 mmol/L (23-31); Chloride 98 mmol/L (98-107); Glucose 112 mg/dL (83-110); Sodium 131 mmol/L (136-145)
[2020-05-15 07:16] LABS: Potassium 2.8 mmol/L (3.5-5.1)
[2020-05-15 07:58] LABS: Band 1 % (5-11); Lymphocytes 10 % (21-51); MDiff Complete? YES; Monocytes 9 % (0-10); Neutrophil 80 % (42-75); RBC Morphology Normal
[2020-05-15] MEDS: Furosemide 40 MG/4 ML VIAL SLOW IVP SCH (08:33)
[2020-05-15] MEDS: Apixaban 5 MG TAB PO SCH ×2 (08:33→22:16)
[2020-05-15] MEDS: Aspirin 81 mg Enteric Coated Tablet PO SCH (08:33)
[2020-05-15] MEDS: Amlodipine 10 MG TAB PO SCH (08:33)
[2020-05-15] MEDS: Metoclopramide HCl 10 MG/2 ML VIAL IVP SCH ×3 (08:33→22:17)
[2020-05-15] MEDS: Polyethylene Glycol 3350 17 GM Packet PO SCH (08:34)
[2020-05-15] MEDS: Pantoprazole 40 MG VIAL IVP SCH ×2 (08:34→22:17)
[2020-05-15] MEDS: Sodium Chloride 0.9% 1,000 ML IV SCH (12:08)
[2020-05-15] MEDS: HumaLOG 300 UNITS/3 ML VIAL SC PRN (12:08)
[2020-05-15] MEDS: Insulin Glargine 30 UNITS in Pre-Filled Syringe 1 EACH SC SCH (21:31)
[2020-05-15] MEDS: Atorvastatin Calcium 20 MG TAB PO SCH (22:16)
[2020-05-15] MEDS: Potassium Chloride 20 MEQ TAB PO SCH (22:17)
[2020-05-16] MEDS: Potassium Chloride 20 MEQ TAB PO SCH (02:07)
[2020-05-16] MEDS: Albuterol Sulfate 2.5 mg/3 ml Neb NEB SCH ×6 (02:48→23:23)
[2020-05-16] MEDS: Sodium Chloride 0.9% 1,000 ML IV SCH (05:03)
[2020-05-16] MEDS: HumaLOG 300 UNITS/3 ML VIAL SC PRN ×2 (05:12→17:37)
[2020-05-16 05:33] LABS: #Eosinphils 0.2 thou/uL (0.0-0.7); #Lymphocytes 1.4 thou/uL (1.20-3.40); #Monocytes 1.5 thou/uL (0.11-0.59); #Neutrophils 16.7 thou/uL (1.40-6.50); %Lymphocytes 6.9 % (21.0-51.0); %Monocytes 7.6 % (0.0-10.0); %Neutrophils 84.4 % (42.0-75.0); Hemoglobin 13.1 g/dL (14.0-18.0); Mean Corpuscular HGB CONC 33.8 g/dL (32.0-36.0); Mean Corpuscular Hemoglobin 29.6 pg (27.0-31.0); Mean Corpuscular Volume 87.5 fL (78.0-98.0); Mean Platelet Volume 9.8 fL (7.4-10.4); Platelet Count 175 thou/uL (130-400); RBC Distribution Width 17.9 % (11.5-14.5); Red Blood Cell (RBC) Count 4.44 mill/uL (4.70-6.10); White Blood Cell (WBC) Count 19.8 thou/uL (4.8-10.8)
[2020-05-16 05:53] LABS: Anion Gap 12 mmol/L (10-20); BUN (Urea Nitrogen) 17 mg/dL (8.4-25.7); Calc. Creatinine Clearance 93 mL/min (70-130); Calcium 7.9 mg/dL (7.8-10.44); Carbon Dioxide 24 mmol/L (23-31); Chloride 101 mmol/L (98-107); Glucose 156 mg/dL (83-110); Potassium 3.2 mmol/L (3.5-5.1); Sodium 134 mmol/L (136-145)
[2020-05-16] MEDS: Mometasone 100 MCG/Formoterol 5 MCG 120 PUFF INHALER INH SCH ×2 (07:44→18:51)
[2020-05-16] MEDS: Furosemide 40 MG/4 ML VIAL SLOW IVP SCH (09:14)
[2020-05-16] MEDS: Apixaban 5 MG TAB PO SCH ×2 (09:14→20:35)
[2020-05-16] MEDS: Aspirin 81 mg Enteric Coated Tablet PO SCH (09:15)
[2020-05-16] MEDS: Polyethylene Glycol 3350 17 GM Packet PO SCH ×2 (09:15→09:26)
[2020-05-16] MEDS: Pantoprazole 40 MG VIAL IVP SCH ×2 (09:15→20:36)
[2020-05-16] MEDS: Metoclopramide HCl 10 MG/2 ML VIAL IVP SCH ×4 (09:15→20:36)
[2020-05-16] MEDS: Amlodipine 10 MG TAB PO SCH (09:15)
[2020-05-16] MEDS ORDERED: Potassium Chloride 20 MEQ TAB PO SCH (15:00)
[2020-05-16] MEDS: Atorvastatin Calcium 20 MG TAB PO SCH (20:35)
[2020-05-16] MEDS: Insulin Glargine 30 UNITS in Pre-Filled Syringe 1 EACH SC SCH (20:37)
[2020-05-17] MEDS: Albuterol Sulfate 2.5 mg/3 ml Neb NEB SCH ×6 (02:32→23:14)
[2020-05-17] MEDS: Mometasone 100 MCG/Formoterol 5 MCG 120 PUFF INHALER INH SCH ×2 (05:56→19:00)
[2020-05-17 06:01] LABS: #Eosinphils 0.3 thou/uL (0.0-0.7); #Lymphocytes 1.2 thou/uL (1.20-3.40); #Monocytes 0.9 thou/uL (0.11-0.59); #Neutrophils 13.5 thou/uL (1.40-6.50); %Basophils 0.1 % (0.0-1.0); %Eosinophils 1.8 % (0.0-10.0); %Lymphocytes 7.8 % (21.0-51.0); %Monocytes 5.7 % (0.0-10.0); %Neutrophils 84.6 % (42.0-75.0); Hemoglobin 12.9 g/dL (14.0-18.0); Mean Corpuscular HGB CONC 33.1 g/dL (32.0-36.0); Mean Corpuscular Hemoglobin 29.3 pg (27.0-31.0); Mean Corpuscular Volume 88.8 fL (78.0-98.0); Mean Platelet Volume 10.2 fL (7.4-10.4); Platelet Count 185 thou/uL (130-400); RBC Distribution Width 18.4 % (11.5-14.5); Red Blood Cell (RBC) Count 4.39 mill/uL (4.70-6.10); White Blood Cell (WBC) Count 15.9 thou/uL (4.8-10.8)
[2020-05-17 06:16] LABS: Anion Gap 12 mmol/L (10-20); BUN (Urea Nitrogen) 9 mg/dL (8.4-25.7); Calc. Creatinine Clearance 92 mL/min (70-130); Carbon Dioxide 25 mmol/L (23-31); Chloride 103 mmol/L (98-107); Glucose 146 mg/dL (83-110); Potassium 3.6 mmol/L (3.5-5.1); Sodium 136 mmol/L (136-145)
[2020-05-17] MEDS: Amlodipine 10 MG TAB PO SCH (08:31)
[2020-05-17] MEDS: Pantoprazole 40 MG VIAL IVP SCH (08:32)
[2020-05-17] MEDS: Polyethylene Glycol 3350 17 GM Packet PO SCH (08:32)
[2020-05-17] MEDS: Apixaban 5 MG TAB PO SCH ×2 (08:32→20:51)
[2020-05-17] MEDS: Metoclopramide HCl 10 MG/2 ML VIAL IVP SCH ×2 (08:32→14:43)
[2020-05-17] MEDS: Furosemide 40 MG/4 ML VIAL SLOW IVP SCH (08:32)
[2020-05-17] MEDS: Aspirin 81 mg Enteric Coated Tablet PO SCH (08:32)
[2020-05-17] MEDS: HumaLOG 300 UNITS/3 ML VIAL SC PRN ×2 (12:18→21:30)
[2020-05-17] MEDS: Metoclopramide 10 MG/10 ML UDCUP PO SCH ×2 (17:52→20:51)
[2020-05-17] MEDS: Atorvastatin Calcium 20 MG TAB PO SCH (20:51)
[2020-05-17] MEDS: Insulin Glargine 30 UNITS in Pre-Filled Syringe 1 EACH SC SCH (20:52)
[2020-05-18] MEDS: Albuterol Sulfate 2.5 mg/3 ml Neb NEB SCH ×6 (03:21→22:01)
[2020-05-18] MEDS: Mometasone 100 MCG/Formoterol 5 MCG 120 PUFF INHALER INH SCH ×2 (06:13→18:16)
[2020-05-18 06:38] LABS: Hemoglobin 13.3 g/dL (14.0-18.0); Mean Corpuscular HGB CONC 32.7 g/dL (32.0-36.0); Mean Corpuscular Hemoglobin 29.2 pg (27.0-31.0); Mean Corpuscular Volume 89.3 fL (78.0-98.0); Mean Platelet Volume 10.3 fL (7.4-10.4); Platelet Count 200 thou/uL (130-400); RBC Distribution Width 18.4 % (11.5-14.5); Red Blood Cell (RBC) Count 4.56 mill/uL (4.70-6.10); White Blood Cell (WBC) Count 21.2 thou/uL (4.8-10.8)
[2020-05-18 06:48] LABS: Anion Gap 12 mmol/L (10-20); BUN (Urea Nitrogen) 10 mg/dL (8.4-25.7); Calc. Creatinine Clearance 85 mL/min (70-130); Calcium 8.7 mg/dL (7.8-10.44); Carbon Dioxide 26 mmol/L (23-31); Chloride 101 mmol/L (98-107); Glucose 186 mg/dL (83-110); Potassium 3.1 mmol/L (3.5-5.1); Sodium 136 mmol/L (136-145)
[2020-05-18 07:59] LABS: Band 2 % (5-11); Lymphocytes 15 % (21-51); MDiff Complete? YES; Monocytes 3 % (0-10); Neutrophil 80 % (42-75)
[2020-05-18] MEDS: Apixaban 5 MG TAB PO SCH ×2 (08:13→21:16)
[2020-05-18] MEDS: Amlodipine 10 MG TAB PO SCH (08:13)
[2020-05-18] MEDS: Furosemide 40 MG/4 ML VIAL SLOW IVP SCH (08:13)
[2020-05-18] MEDS: Metoclopramide 10 MG/10 ML UDCUP PO SCH (08:13)
[2020-05-18] MEDS: Aspirin 81 mg Enteric Coated Tablet PO SCH (08:13)
[2020-05-18] MEDS: Polyethylene Glycol 3350 17 GM Packet PO SCH (08:14)
[2020-05-18] MEDS: HumaLOG 300 UNITS/3 ML VIAL SC PRN ×3 (12:48→21:17)
[2020-05-18] MEDS: Acetaminophen 325 MG TAB PO PRN (14:20)
[2020-05-18] MEDS: Metoclopramide HCl 10 MG TAB PO SCH (16:23)
[2020-05-18] MEDS: Atorvastatin Calcium 20 MG TAB PO SCH (21:16)
[2020-05-18] MEDS: Insulin Glargine 30 UNITS in Pre-Filled Syringe 1 EACH SC SCH (21:17)
[2020-05-19] MEDS: Lorazepam 0.5 MG TAB PO PRN (01:54)
[2020-05-19] MEDS: Acetaminophen 325 MG TAB PO PRN (01:55)
[2020-05-19] MEDS: Albuterol Sulfate 2.5 mg/3 ml Neb NEB SCH ×6 (03:03→23:05)
[2020-05-19] MEDS: HumaLOG 300 UNITS/3 ML VIAL SC PRN ×2 (05:44→18:04)
[2020-05-19 07:07] LABS: Anion Gap 13 mmol/L (10-20); BUN (Urea Nitrogen) 13 mg/dL (8.4-25.7); Calc. Creatinine Clearance 80 mL/min (70-130); Calcium 8.9 mg/dL (7.8-10.44); Carbon Dioxide 28 mmol/L (23-31); Chloride 99 mmol/L (98-107); Glucose 169 mg/dL (83-110); Potassium 3.1 mmol/L (3.5-5.1); Sodium 137 mmol/L (136-145)
[2020-05-19] MEDS: Mometasone 100 MCG/Formoterol 5 MCG 120 PUFF INHALER INH SCH ×2 (07:26→18:52)
[2020-05-19 08:49] LABS: Anisocytosis SLIGHT = 6-15 cells (100X) (0-5/hpf); Band 2 % (5-11); Hemoglobin 13.6 g/dL (14.0-18.0); Lymphocytes 9 % (21-51); MDiff Complete? YES; Mean Corpuscular HGB CONC 32.2 g/dL (32.0-36.0); Mean Corpuscular Hemoglobin 28.5 pg (27.0-31.0); Mean Corpuscular Volume 88.5 fL (78.0-98.0); Mean Platelet Volume 9.8 fL (7.4-10.4); Monocytes 6 % (0-10); Neutrophil 83 % (42-75); Ovalocytes SLIGHT = 2-5 cells (100X) (0-1/hpf); Platelet Count 234 thou/uL (130-400); Poikilocytosis SLIGHT = 6-15 cells (100X) (0-5/hpf); RBC Distribution Width 18.9 % (11.5-14.5); Red Blood Cell (RBC) Count 4.77 mill/uL (4.70-6.10); White Blood Cell (WBC) Count 22.5 thou/uL (4.8-10.8)
[2020-05-19] MEDS: Aspirin 81 mg Enteric Coated Tablet PO SCH (09:47)
[2020-05-19] MEDS: Apixaban 5 MG TAB PO SCH ×2 (09:48→21:16)
[2020-05-19] MEDS: Metoclopramide HCl 10 MG TAB PO SCH ×2 (09:48→17:51)
[2020-05-19] MEDS: Amlodipine 10 MG TAB PO SCH (09:48)
[2020-05-19] MEDS: Polyethylene Glycol 3350 17 GM Packet PO SCH (09:49)
[2020-05-19] MEDS: Furosemide 40 MG/4 ML VIAL SLOW IVP SCH (09:49)
[2020-05-19] MEDS ORDERED: Potassium Chloride 20 MEQ TAB PO SCH ×2 (10:30→15:00)
[2020-05-19] MEDS ORDERED: Potassium Chloride 20 MEQ in Premix Bag 1 BAG IVPB SCH (11:00)
[2020-05-19] MEDS ORDERED: cefTRIAXone\\ROCEPHIN 2 GM in Sodium Chloride 0.9% 100 ML IVPB SCH (15:00)
[2020-05-19] MEDS: Atorvastatin Calcium 20 MG TAB PO SCH (21:16)
[2020-05-19] MEDS: Insulin Glargine 30 UNITS in Pre-Filled Syringe 1 EACH SC SCH (21:36)
[2020-05-19 22:29] LABS: Bilirubin Negative (Negative); Blood, Urine Trace (Negative); Clarity Turbid (Clear); Glucose, Urine (Dipstick) 200 mg/dL (Negative); Ketone, Urine Negative (Negative); Leukocyte 500 Leu/uL (Negative); Nitrite Negative (Negative); Protein, Urine (Dipstick) 20 mg/dL (Neg-Trace); Specific Gravity, Urine 1.016 (1.002-1.036); Squamous Epithelial 0-3 HPF (0-3); Urobilinogen Normal mg/dL (Less than 2); WBC/HPF Greater than 50 HPF (0-3)
[2020-05-19 22:38] LABS: Bacteria/HPF 2+ HPF (None Seen); Yeast-Budding Rare HPF (None Seen); Yeast-Hyphae None Seen HPF (None Seen)
[2020-05-19 22:40] LABS: Urine Culture Reflex Yes Yes
[2020-05-20] MEDS: Albuterol Sulfate 2.5 mg/3 ml Neb NEB SCH ×6 (02:39→22:27)
[2020-05-20] MEDS: Mometasone 100 MCG/Formoterol 5 MCG 120 PUFF INHALER INH SCH ×2 (06:16→18:42)
[2020-05-20] MEDS: HumaLOG 300 UNITS/3 ML VIAL SC PRN ×2 (06:18→21:10)
[2020-05-20] MEDS: Aspirin 81 mg Enteric Coated Tablet PO SCH (09:19)
[2020-05-20] MEDS: Polyethylene Glycol 3350 17 GM Packet PO SCH (09:19)
[2020-05-20] MEDS: Furosemide 40 MG/4 ML VIAL SLOW IVP SCH (09:19)
[2020-05-20] MEDS: Apixaban 5 MG TAB PO SCH ×2 (09:19→21:10)
[2020-05-20] MEDS: Metoclopramide HCl 10 MG TAB PO SCH ×2 (09:19→13:31)
[2020-05-20] MEDS: Amlodipine 10 MG TAB PO SCH (09:23)
[2020-05-20] MEDS ORDERED: Amoxicillin/Potassium Clav 875 MG TAB PO SCH (10:15)
[2020-05-20] MEDS ORDERED: cefTRIAXone\\ROCEPHIN 2 GM in Sodium Chloride 0.9% 100 ML IVPB SCH (18:00)
[2020-05-20] MEDS: Amoxicillin/Potassium Clav 875 MG TAB PO SCH (21:09)
[2020-05-20] MEDS: Insulin Glargine 30 UNITS in Pre-Filled Syringe 1 EACH SC SCH (21:10)
[2020-05-20] MEDS: Atorvastatin Calcium 20 MG TAB PO SCH (21:10)
[2020-05-21] MEDS: Albuterol Sulfate 2.5 mg/3 ml Neb NEB SCH ×4 (02:01→14:29)
[2020-05-21] MEDS: HumaLOG 300 UNITS/3 ML VIAL SC PRN (05:36)
[2020-05-21] MEDS: Mometasone 100 MCG/Formoterol 5 MCG 120 PUFF INHALER INH SCH (07:36)
[2020-05-21 07:59] VITALS: TEMP 97.9
[2020-05-21] MEDS: Furosemide 40 MG/4 ML VIAL SLOW IVP SCH (08:43)
[2020-05-21] MEDS: Amlodipine 10 MG TAB PO SCH (08:43)
[2020-05-21] MEDS: Amoxicillin/Potassium Clav 875 MG TAB PO SCH (08:43)
[2020-05-21] MEDS: Apixaban 5 MG TAB PO SCH (08:43)
[2020-05-21] MEDS: Aspirin 81 mg Enteric Coated Tablet PO SCH (08:43)
[2020-05-21] MEDS: Polyethylene Glycol 3350 17 GM Packet PO SCH (08:44)
[2020-05-21] MEDS ORDERED: Metoclopramide HCl 10 MG TAB PO SCH (09:00)
[2020-05-21] MEDS ORDERED: Magnesium 2 GM/50 ML 2 GM in Premix Bag 1 BAG IVPB SCH (14:15)
[2020-05-21 15:21] VITALS: BP 131/73
== END 2020-05-21 17:05 | disposition home health service (06) | DRG 190 ==
LOC: ERS 22:03 → ERHOLD 23:14 → T4-B 05-08 09:55
PROVIDERS: ADMIT Student in an Organized Health Care Education/Training Program; ATTEND Internal Medicine
PROC: 0DB98ZX Excision of Duodenum, Via Natural or Artificial Opening Endoscopic, Diagnostic (ICD-10-PCS; principal; 2020-05-12)
DX: J44.1 Chronic obstructive pulmonary disease with (acute) exacerbation (principal); J96.21 Acute and chronic respiratory failure with hypoxia; I50.32 Chronic diastolic (congestive) heart failure; N39.0 Urinary tract infection, site not specified; K52.1 Toxic gastroenteritis and colitis; E87.1 Hypo-osmolality and hyponatremia; K56.7 Ileus, unspecified; Z66 Do not resuscitate; Z20.822 Contact with and (suspected) exposure to COVID-19; I11.0 Hypertensive heart disease with heart failure; T45.0X5A Adverse effect of antiallergic and antiemetic drugs, initial encounter; I48.91 Unspecified atrial fibrillation; F41.9 Anxiety disorder, unspecified; G47.33 Obstructive sleep apnea (adult) (pediatric); I25.10 Atherosclerotic heart disease of native coronary artery without angina pectoris; E78.00 Pure hypercholesterolemia, unspecified; K63.89 Other specified diseases of intestine; K59.00 Constipation, unspecified; K21.00 Gastro-esophageal reflux disease with esophagitis, without bleeding; K29.80 Duodenitis without bleeding; K31.84 Gastroparesis; E11.43 Type 2 diabetes mellitus with diabetic autonomic (poly)neuropathy; Z79.51 Long term (current) use of inhaled steroids; Z87.891 Personal history of nicotine dependence; Z99.81 Dependence on supplemental oxygen; Z95.5 Presence of coronary angioplasty implant and graft; Z86.718 Personal history of other venous thrombosis and embolism; Z95.0 Presence of cardiac pacemaker; Z79.899 Other long term (current) drug therapy; Z79.82 Long term (current) use of aspirin; Z79.84 Long term (current) use of oral hypoglycemic drugs; T85.898A Other specified complication of other internal prosthetic devices, implants and grafts, initial encounter; Y84.8 Other medical procedures as the cause of abnormal reaction of the patient, or of later complication, without mention of misadventure at the time of the procedure
CPT/HCPCS: 0240U; 36415; 36416; 71045; 74018; 74177; 74250; 80048; 80053; 80076; 81001; 81003; 81015; 82805; 83605; 83690; 83735; 83880; 84484; 85025; 87040; 87077; 87086; 87186; 88305; 93005; 94640; 94644; 94664; 96365; 96375; C9113; J0360; J0692; J0696; J1650; J1815; J1940; J2270; J2405; J2550; J2704; J2765; J2920; J2930; J3010; J3475; J3490; J7611; Q9963

== ENCOUNTER 2020-05-31 02:06 | Inpatient (IN) | payer MEDICARE ==
[2020-05-31] MEDS ORDERED: Dexamethasone 10 MG/ML VIAL ONE (02:32)
[2020-05-31] MEDS ORDERED: Magnesium 2 GM/50 ML BAG (IN WATER) ONE (02:32)
[2020-05-31] MEDS ORDERED: Aspirin Chewable 81 MG TAB ONE (02:32)
[2020-05-31 02:52] LABS: #Eosinphils 0.1 thou/uL (0.0-0.7); #Lymphocytes 1.1 thou/uL (1.20-3.40); #Neutrophils 9.3 thou/uL (1.40-6.50); %Basophils 0.3 % (0.0-1.0); %Eosinophils 1.3 % (0.0-10.0); %Lymphocytes 9.9 % (21.0-51.0); %Monocytes 8.6 % (0.0-10.0); Hemoglobin 9.7 g/dL (14.0-18.0); Mean Corpuscular HGB CONC 32.9 g/dL (32.0-36.0); Mean Corpuscular Hemoglobin 28.8 pg (27.0-31.0); Mean Corpuscular Volume 87.5 fL (78.0-98.0); Mean Platelet Volume 9.9 fL (7.4-10.4); Platelet Count 135 thou/uL (130-400); RBC Distribution Width 18.7 % (11.5-14.5); Red Blood Cell (RBC) Count 3.38 mill/uL (4.70-6.10); White Blood Cell (WBC) Count 11.6 thou/uL (4.8-10.8)
[2020-05-31 02:53] LABS: Actual Bicarbonate (HCO3v) 28 mEq/L (22-28); Base Excess 4.1 mEq/L (-2.0 to +3.0); Calcium, Ionized (venous) 1.11 mmol/L (1.16-1.32); Chloride (VBG) 95 mmol/L (98-106); Hemoglobin (Hb) 10.7 g/dL (12.6-17.4); Potassium (VBG) 4.22 mmol/L (3.70-5.30); Sodium 131.7 mmol/L (133-146); pH (venous) 7.45 (7.32-7.43)
[2020-05-31 03:12] LABS: ALT (SGPT) 12 U/L (8-55); AST (SGOT) 13 U/L (5-34); Albumin 3.4 g/dL (3.4-4.8); Alkaline Phosphatase 78 U/L (40-110); Anion Gap 13 mmol/L (10-20); BUN (Urea Nitrogen) 14 mg/dL (8.4-25.7); Bilirubin, Total 0.8 mg/dL (0.2-1.2); Calc. Creatinine Clearance 0 mL/min (70-130); Calcium 8.8 mg/dL (7.8-10.44); Carbon Dioxide 28 mmol/L (23-31); Chloride 95 mmol/L (98-107); Globulin 3.1 g/dL (2.4-3.5); Glucose 177 mg/dL (83-110); Potassium 4.1 mmol/L (3.5-5.1); Protein, Total 6.5 g/dL (5.8-8.1); Sodium 132 mmol/L (136-145)
[2020-05-31] MEDS ORDERED: Acetaminophen 325 MG TAB PO PRN (05:11)
[2020-05-31] MEDS ORDERED: Ondansetron PF 4 MG/2 ML Vial IVP PRN (05:11)
[2020-05-31] MEDS ORDERED: Dextrose 5% in Water 1,000 ML IV PRN (05:16)
[2020-05-31] MEDS ORDERED: Dextrose 50% Abboject 50 ML SYRINGE SLOW IVP PRN (05:16)
[2020-05-31] MEDS ORDERED: Albuterol Sulfate 2.5 mg/3 ml Neb NEB PRN ×2 (05:17→16:10)
[2020-05-31] MEDS: methylPREDNISolone Sod Succ 40 MG VIAL IVP SCH ×3 (07:03→21:23)
[2020-05-31] MEDS: HumaLOG 300 UNITS/3 ML VIAL SC PRN ×4 (07:24→21:52)
[2020-05-31] MEDS ORDERED: Metoprolol Tartrate 5 MG/5 ML VIAL IVP PRN (07:50)
[2020-05-31 09:57] LABS: Hemoglobin 10.6 g/dL (14.0-18.0)
[2020-05-31 12:28] VITALS: BMI 24.6
[2020-05-31] MEDS ORDERED: Vancomycin 1.5 GRAM/300 ML BAG 1.5 GM in Premix Bag 1 BAG IVPB SCH (13:00)
[2020-05-31] MEDS: Cefepime 1 GM in Sodium Chloride 0.9% 100 ML IVPB SCH ×2 (13:23→21:22)
[2020-05-31] MEDS ORDERED: Non-Formulary Item 1 EACH (Albuterol Sulfate [Proair Hfa] 8.5 GM Hfa.Aer.Ad) INH PRN (16:10)
[2020-05-31 16:57] LABS: SARS-CoV-2 PCR by NAA DETECTED (NotDetected)
[2020-05-31] MEDS ORDERED: Lorazepam 2 MG/ML VIAL ONE (18:09)
[2020-05-31] MEDS ORDERED: Albuterol 200 PUFF (6.7GM INHALER) INH PRN (18:09)
[2020-05-31] MEDS: metFORMIN 500 MG TAB PO SCH (18:13)
[2020-05-31] MEDS: Mometasone 100 MCG/Formoterol 5 MCG 120 PUFF INHALER INH SCH (20:32)
[2020-05-31] MEDS: Senokot S 8.6-50 MG TAB PO PRN (21:22)
[2020-05-31] MEDS: Atorvastatin Calcium 20 MG TAB PO SCH (21:23)
[2020-05-31] MEDS: Apixaban 5 MG TAB PO SCH (21:23)
[2020-06-01] MEDS: Albuterol 200 PUFF (6.7GM INHALER) INH SCH ×6 (01:53→23:33)
[2020-06-01] MEDS: Lorazepam 2 MG/ML VIAL SLOW IVP PRN ×2 (01:54→20:50)
[2020-06-01] MEDS: HumaLOG 300 UNITS/3 ML VIAL SC PRN ×3 (06:25→17:02)
[2020-06-01] MEDS: Mometasone 100 MCG/Formoterol 5 MCG 120 PUFF INHALER INH SCH ×2 (06:25→17:56)
[2020-06-01] MEDS: methylPREDNISolone Sod Succ 40 MG VIAL IVP SCH ×3 (06:25→20:50)
[2020-06-01 06:43] LABS: #Lymphocytes 0.4 thou/uL (1.20-3.40); #Monocytes 0.5 thou/uL (0.11-0.59); #Neutrophils 9.2 thou/uL (1.40-6.50); %Eosinophils 0.1 % (0.0-10.0); %Lymphocytes 4.2 % (21.0-51.0); %Monocytes 5.3 % (0.0-10.0); %Neutrophils 90.4 % (42.0-75.0); Hemoglobin 9.7 g/dL (14.0-18.0); Mean Corpuscular HGB CONC 33.6 g/dL (32.0-36.0); Mean Corpuscular Hemoglobin 29.4 pg (27.0-31.0); Mean Corpuscular Volume 87.5 fL (78.0-98.0); Mean Platelet Volume 10.3 fL (7.4-10.4); Platelet Count 145 thou/uL (130-400); White Blood Cell (WBC) Count 10.1 thou/uL (4.8-10.8)
[2020-06-01 06:59] LABS: Anion Gap 14 mmol/L (10-20); BUN (Urea Nitrogen) 17 mg/dL (8.4-25.7); Calc. Creatinine Clearance 85 mL/min (70-130); Calcium 8.5 mg/dL (7.8-10.44); Carbon Dioxide 24 mmol/L (23-31); Chloride 98 mmol/L (98-107); Glucose 331 mg/dL (83-110); Potassium 4.6 mmol/L (3.5-5.1); Sodium 131 mmol/L (136-145)
[2020-06-01] MEDS: Cefepime 1 GM in Sodium Chloride 0.9% 100 ML IVPB SCH ×2 (08:55→20:49)
[2020-06-01] MEDS: Senokot S 8.6-50 MG TAB PO PRN (08:57)
[2020-06-01] MEDS: metFORMIN 500 MG TAB PO SCH ×2 (08:57→17:02)
[2020-06-01] MEDS: Cholecalciferol 1,000 UNITS (25 MCG) TAB PO SCH (08:57)
[2020-06-01] MEDS: glipiZIDE 5 MG TAB PO SCH (08:58)
[2020-06-01] MEDS: Aspirin 81 mg Enteric Coated Tablet PO SCH (08:58)
[2020-06-01] MEDS: Spironolactone 25 MG TAB PO SCH (08:58)
[2020-06-01] MEDS: Torsemide 20 MG TAB PO SCH (08:59)
[2020-06-01] MEDS: Amlodipine 10 MG TAB PO SCH (08:59)
[2020-06-01] MEDS: Ascorbic Acid 500 mg Chewable Tablet PO SCH (08:59)
[2020-06-01] MEDS: Metoclopramide HCl 10 MG TAB PO SCH (09:00)
[2020-06-01] MEDS: Apixaban 5 MG TAB PO SCH ×2 (09:01→20:49)
[2020-06-01] MEDS: Zinc Sulfate 220 MG CAP PO SCH (09:01)
[2020-06-01] MEDS: Loratadine 10 MG TAB PO SCH (09:01)
[2020-06-01] MEDS ORDERED: Dextrose 5% in Water 1,000 ML IV PRN (09:07)
[2020-06-01] MEDS ORDERED: Dextrose 50% Abboject 50 ML SYRINGE SLOW IVP PRN (09:07)
[2020-06-01] MEDS: Atorvastatin Calcium 20 MG TAB PO SCH (20:49)
[2020-06-02] MEDS: Albuterol 200 PUFF (6.7GM INHALER) INH SCH ×6 (02:02→23:00)
[2020-06-02] MEDS: methylPREDNISolone Sod Succ 40 MG VIAL IVP SCH (05:23)
[2020-06-02] MEDS: Mometasone 100 MCG/Formoterol 5 MCG 120 PUFF INHALER INH SCH ×2 (05:25→18:40)
[2020-06-02] MEDS: HumaLOG 300 UNITS/3 ML VIAL SC PRN ×3 (05:26→18:45)
[2020-06-02] MEDS: Metoclopramide HCl 10 MG TAB PO SCH (08:49)
[2020-06-02] MEDS: Amlodipine 10 MG TAB PO SCH (08:49)
[2020-06-02] MEDS: Loratadine 10 MG TAB PO SCH (08:49)
[2020-06-02] MEDS: Ascorbic Acid 500 mg Chewable Tablet PO SCH (08:49)
[2020-06-02] MEDS: Apixaban 5 MG TAB PO SCH ×2 (08:49→20:28)
[2020-06-02] MEDS: glipiZIDE 5 MG TAB PO SCH (08:49)
[2020-06-02] MEDS: Aspirin 81 mg Enteric Coated Tablet PO SCH (08:49)
[2020-06-02] MEDS: Spironolactone 25 MG TAB PO SCH (08:50)
[2020-06-02] MEDS: Cholecalciferol 1,000 UNITS (25 MCG) TAB PO SCH (08:52)
[2020-06-02] MEDS: Cefepime 1 GM in Sodium Chloride 0.9% 100 ML IVPB SCH ×2 (08:53→20:30)
[2020-06-02] MEDS: Zinc Sulfate 220 MG CAP PO SCH (08:53)
[2020-06-02] MEDS: metFORMIN 500 MG TAB PO SCH ×2 (08:56→18:45)
[2020-06-02] MEDS ORDERED: Dexamethasone 4 mg/ml Vial SLOW IVP SCH (09:15)
[2020-06-02] MEDS ORDERED: Iopamidol-370 76% 500 ML 1 ML ONE (09:35)
[2020-06-02] MEDS: Dexamethasone 4 mg/ml Vial SLOW IVP SCH ×2 (11:57→20:29)
[2020-06-02] MEDS: Torsemide 20 MG TAB PO SCH (12:37)
[2020-06-02 13:47] LABS: Anion Gap 16 mmol/L (10-20); BUN (Urea Nitrogen) 34 mg/dL (8.4-25.7); Calc. Creatinine Clearance 77 mL/min (70-130); Calcium 8.6 mg/dL (7.8-10.44); Carbon Dioxide 24 mmol/L (23-31); Chloride 98 mmol/L (98-107); Glucose 235 mg/dL (83-110); Potassium 4.1 mmol/L (3.5-5.1); Sodium 134 mmol/L (136-145)
[2020-06-02 13:50] LABS: Band 6 % (5-11); Hemoglobin 11.7 g/dL (14.0-18.0); Lymphocytes 1 % (21-51); MDiff Complete? YES; Mean Corpuscular HGB CONC 32.8 g/dL (32.0-36.0); Mean Corpuscular Volume 88.4 fL (78.0-98.0); Mean Platelet Volume 9.4 fL (7.4-10.4); Monocytes 2 % (0-10); Neutrophil 91 % (42-75); Ovalocytes SLIGHT = 2-5 cells (100X) (0-1/hpf); Platelet Count 229 thou/uL (130-400); Platelet Morphology Comment Appears Adequate; Polychromasia SLIGHT = 2-3 cells (100X) (0-2/hpf); RBC Distribution Width 18.3 % (11.5-14.5); Red Blood Cell (RBC) Count 4.02 mill/uL (4.70-6.10); Schistocytes SLIGHT = 2-5 cells (100X) (0-1/hpf); Tear Drops SLIGHT = 2-5 cells (100X) (0-1/hpf); White Blood Cell (WBC) Count 22.3 thou/uL (4.8-10.8)
[2020-06-02] MEDS: Lorazepam 2 MG/ML VIAL SLOW IVP PRN (20:28)
[2020-06-02] MEDS: Atorvastatin Calcium 20 MG TAB PO SCH (20:28)
[2020-06-03] MEDS: HumaLOG 300 UNITS/3 ML VIAL SC PRN ×5 (00:08→21:18)
[2020-06-03] MEDS: traZODone HCl 50 MG TAB PO PRN (00:13)
[2020-06-03] MEDS: Albuterol 200 PUFF (6.7GM INHALER) INH SCH ×6 (03:00→23:10)
[2020-06-03] MEDS: Mometasone 100 MCG/Formoterol 5 MCG 120 PUFF INHALER INH SCH ×2 (05:13→18:00)
[2020-06-03 06:19] LABS: #Lymphocytes 0.6 thou/uL (1.20-3.40); #Neutrophils 17.9 thou/uL (1.40-6.50); %Eosinophils 0.2 % (0.0-10.0); %Monocytes 4.9 % (0.0-10.0); %Neutrophils 91.9 % (42.0-75.0); Hemoglobin 11.6 g/dL (14.0-18.0); Mean Corpuscular HGB CONC 32.5 g/dL (32.0-36.0); Mean Corpuscular Hemoglobin 28.5 pg (27.0-31.0); Mean Corpuscular Volume 87.7 fL (78.0-98.0); Mean Platelet Volume 9.4 fL (7.4-10.4); Platelet Count 218 thou/uL (130-400); RBC Distribution Width 18.4 % (11.5-14.5); Red Blood Cell (RBC) Count 4.06 mill/uL (4.70-6.10); White Blood Cell (WBC) Count 19.5 thou/uL (4.8-10.8)
[2020-06-03 06:41] LABS: Anion Gap 17 mmol/L (10-20); BUN (Urea Nitrogen) 37 mg/dL (8.4-25.7); Calc. Creatinine Clearance 78 mL/min (70-130); Calcium 8.5 mg/dL (7.8-10.44); Carbon Dioxide 21 mmol/L (23-31); Chloride 100 mmol/L (98-107); Glucose 241 mg/dL (83-110); Potassium 4.5 mmol/L (3.5-5.1); Sodium 133 mmol/L (136-145)
[2020-06-03] MEDS: Aspirin 81 mg Enteric Coated Tablet PO SCH (09:01)
[2020-06-03] MEDS: metFORMIN 500 MG TAB PO SCH ×2 (09:01→18:00)
[2020-06-03] MEDS: Loratadine 10 MG TAB PO SCH (09:01)
[2020-06-03] MEDS: Torsemide 20 MG TAB PO SCH (09:01)
[2020-06-03] MEDS: glipiZIDE 5 MG TAB PO SCH (09:01)
[2020-06-03] MEDS: Cholecalciferol 1,000 UNITS (25 MCG) TAB PO SCH (09:01)
[2020-06-03] MEDS: Dexamethasone 4 mg/ml Vial SLOW IVP SCH ×2 (09:01→21:14)
[2020-06-03] MEDS: Amlodipine 10 MG TAB PO SCH (09:02)
[2020-06-03] MEDS: Apixaban 5 MG TAB PO SCH ×2 (09:02→21:14)
[2020-06-03] MEDS: Spironolactone 25 MG TAB PO SCH (09:02)
[2020-06-03] MEDS: Zinc Sulfate 220 MG CAP PO SCH (09:02)
[2020-06-03] MEDS: Cefepime 1 GM in Sodium Chloride 0.9% 100 ML IVPB SCH ×2 (09:02→21:14)
[2020-06-03] MEDS: Ascorbic Acid 500 mg Chewable Tablet PO SCH (09:02)
[2020-06-03] MEDS: Metoclopramide HCl 10 MG TAB PO SCH (09:02)
[2020-06-03] MEDS: Atorvastatin Calcium 20 MG TAB PO SCH (21:14)
[2020-06-04] MEDS: Albuterol 200 PUFF (6.7GM INHALER) INH SCH ×5 (03:23→17:57)
[2020-06-04] MEDS: Mometasone 100 MCG/Formoterol 5 MCG 120 PUFF INHALER INH SCH ×2 (05:29→18:15)
[2020-06-04] MEDS: HumaLOG 300 UNITS/3 ML VIAL SC PRN ×3 (05:30→17:56)
[2020-06-04 06:28] LABS: #Lymphocytes 0.6 thou/uL (1.20-3.40); #Monocytes 0.6 thou/uL (0.11-0.59); #Neutrophils 15.3 thou/uL (1.40-6.50); %Basophils 0.1 % (0.0-1.0); %Eosinophils 0.2 % (0.0-10.0); %Lymphocytes 3.5 % (21.0-51.0); %Monocytes 3.7 % (0.0-10.0); %Neutrophils 92.5 % (42.0-75.0); Hemoglobin 12.1 g/dL (14.0-18.0); Mean Corpuscular Hemoglobin 28.5 pg (27.0-31.0); Mean Corpuscular Volume 86.3 fL (78.0-98.0); Mean Platelet Volume 9.4 fL (7.4-10.4); Platelet Count 220 thou/uL (130-400); Red Blood Cell (RBC) Count 4.27 mill/uL (4.70-6.10); White Blood Cell (WBC) Count 16.5 thou/uL (4.8-10.8)
[2020-06-04 06:48] LABS: Anion Gap 14 mmol/L (10-20); BUN (Urea Nitrogen) 34 mg/dL (8.4-25.7); Calc. Creatinine Clearance 84 mL/min (70-130); Calcium 8.2 mg/dL (7.8-10.44); Carbon Dioxide 24 mmol/L (23-31); Chloride 98 mmol/L (98-107); Glucose 253 mg/dL (83-110); Potassium 4.1 mmol/L (3.5-5.1); Sodium 132 mmol/L (136-145)
[2020-06-04] MEDS: Dexamethasone 4 mg/ml Vial SLOW IVP SCH ×2 (08:10→21:28)
[2020-06-04] MEDS: Torsemide 20 MG TAB PO SCH (08:10)
[2020-06-04] MEDS: Zinc Sulfate 220 MG CAP PO SCH (08:10)
[2020-06-04] MEDS: Cholecalciferol 1,000 UNITS (25 MCG) TAB PO SCH (08:10)
[2020-06-04] MEDS: metFORMIN 500 MG TAB PO SCH ×2 (08:11→17:56)
[2020-06-04] MEDS: glipiZIDE 5 MG TAB PO SCH (08:11)
[2020-06-04] MEDS: Ascorbic Acid 500 mg Chewable Tablet PO SCH (08:11)
[2020-06-04] MEDS: Loratadine 10 MG TAB PO SCH (08:11)
[2020-06-04] MEDS: Spironolactone 25 MG TAB PO SCH (08:11)
[2020-06-04] MEDS: Apixaban 5 MG TAB PO SCH ×2 (08:11→21:27)
[2020-06-04] MEDS: Aspirin 81 mg Enteric Coated Tablet PO SCH (08:11)
[2020-06-04] MEDS: Cefepime 1 GM in Sodium Chloride 0.9% 100 ML IVPB SCH ×2 (08:12→21:27)
[2020-06-04] MEDS: Metoclopramide HCl 10 MG TAB PO SCH (08:12)
[2020-06-04] MEDS: Amlodipine 10 MG TAB PO SCH (08:12)
[2020-06-04] MEDS: Atorvastatin Calcium 20 MG TAB PO SCH (21:27)
[2020-06-05] MEDS: Albuterol 200 PUFF (6.7GM INHALER) INH SCH ×7 (01:06→23:18)
[2020-06-05] MEDS: traZODone HCl 50 MG TAB PO PRN (02:23)
[2020-06-05] MEDS: Mometasone 100 MCG/Formoterol 5 MCG 120 PUFF INHALER INH SCH ×2 (05:45→18:41)
[2020-06-05 05:57] LABS: Mean Corpuscular HGB CONC 32.8 g/dL (32.0-36.0); Mean Corpuscular Hemoglobin 28.2 pg (27.0-31.0); Mean Corpuscular Volume 86.1 fL (78.0-98.0); Mean Platelet Volume 9.4 fL (7.4-10.4); Platelet Count 238 thou/uL (130-400); RBC Distribution Width 17.9 % (11.5-14.5); Red Blood Cell (RBC) Count 4.27 mill/uL (4.70-6.10); White Blood Cell (WBC) Count 17.1 thou/uL (4.8-10.8)
[2020-06-05] MEDS: HumaLOG 300 UNITS/3 ML VIAL SC PRN ×3 (06:03→17:37)
[2020-06-05 06:13] LABS: Anion Gap 13 mmol/L (10-20); BUN (Urea Nitrogen) 34 mg/dL (8.4-25.7); Calc. Creatinine Clearance 80 mL/min (70-130); Calcium 8.4 mg/dL (7.8-10.44); Carbon Dioxide 28 mmol/L (23-31); Chloride 95 mmol/L (98-107); Glucose 310 mg/dL (83-110); Potassium 4.5 mmol/L (3.5-5.1); Sodium 131 mmol/L (136-145)
[2020-06-05 06:51] LABS: Band 2 % (5-11); Lymphocytes 2 % (21-51); MDiff Complete? YES; Monocytes 4 % (0-10); Myelocyte 2 % (0-0); Neutrophil 90 % (42-75)
[2020-06-05] MEDS: metFORMIN 500 MG TAB PO SCH ×2 (08:24→16:29)
[2020-06-05] MEDS: glipiZIDE 5 MG TAB PO SCH (08:24)
[2020-06-05] MEDS: Cefepime 1 GM in Sodium Chloride 0.9% 100 ML IVPB SCH ×2 (08:24→20:57)
[2020-06-05] MEDS: Cholecalciferol 1,000 UNITS (25 MCG) TAB PO SCH (08:25)
[2020-06-05] MEDS: Dexamethasone 4 mg/ml Vial SLOW IVP SCH ×2 (08:25→20:58)
[2020-06-05] MEDS: Spironolactone 25 MG TAB PO SCH (08:25)
[2020-06-05] MEDS: Zinc Sulfate 220 MG CAP PO SCH (08:26)
[2020-06-05] MEDS: Apixaban 5 MG TAB PO SCH ×2 (08:26→20:57)
[2020-06-05] MEDS: Metoclopramide HCl 10 MG TAB PO SCH (08:26)
[2020-06-05] MEDS: Loratadine 10 MG TAB PO SCH (08:26)
[2020-06-05] MEDS: Amlodipine 10 MG TAB PO SCH (08:26)
[2020-06-05] MEDS: Ascorbic Acid 500 mg Chewable Tablet PO SCH (08:26)
[2020-06-05] MEDS: Torsemide 20 MG TAB PO SCH (08:26)
[2020-06-05] MEDS: Aspirin 81 mg Enteric Coated Tablet PO SCH (08:27)
[2020-06-05] MEDS ORDERED: Benzonatate 100 MG CAP PO SCH (14:00)
[2020-06-05] MEDS: Benzonatate 100 MG CAP PO SCH (20:57)
[2020-06-05] MEDS: Atorvastatin Calcium 20 MG TAB PO SCH (20:57)
[2020-06-06] MEDS: Albuterol 200 PUFF (6.7GM INHALER) INH SCH ×5 (01:54→17:09)
[2020-06-06] MEDS: Mometasone 100 MCG/Formoterol 5 MCG 120 PUFF INHALER INH SCH ×2 (05:55→17:09)
[2020-06-06] MEDS: HumaLOG 300 UNITS/3 ML VIAL SC PRN ×3 (05:56→17:01)
[2020-06-06] MEDS: Apixaban 5 MG TAB PO SCH (08:33)
[2020-06-06] MEDS: metFORMIN 500 MG TAB PO SCH (08:33)
[2020-06-06] MEDS: Dexamethasone 4 mg/ml Vial SLOW IVP SCH (08:33)
[2020-06-06] MEDS: Cholecalciferol 1,000 UNITS (25 MCG) TAB PO SCH (08:33)
[2020-06-06] MEDS: Torsemide 20 MG TAB PO SCH (08:33)
[2020-06-06] MEDS: Spironolactone 25 MG TAB PO SCH (08:33)
[2020-06-06] MEDS: Loratadine 10 MG TAB PO SCH (08:33)
[2020-06-06] MEDS: Aspirin 81 mg Enteric Coated Tablet PO SCH (08:34)
[2020-06-06] MEDS: Benzonatate 100 MG CAP PO SCH ×2 (08:34→15:15)
[2020-06-06] MEDS: Ascorbic Acid 500 mg Chewable Tablet PO SCH (08:34)
[2020-06-06] MEDS: glipiZIDE 5 MG TAB PO SCH (08:34)
[2020-06-06] MEDS: Amlodipine 10 MG TAB PO SCH (08:34)
[2020-06-06] MEDS: Zinc Sulfate 220 MG CAP PO SCH (08:34)
[2020-06-06] MEDS: Metoclopramide HCl 10 MG TAB PO SCH (08:34)
[2020-06-06] MEDS: Cefepime 1 GM in Sodium Chloride 0.9% 100 ML IVPB SCH (08:35)
[2020-06-06] MEDS ORDERED: Loperamide HCl 1 MG/7.5 ML UDCUP PO PRN (13:29)
[2020-06-06 16:26] VITALS: BP 132/79; TEMP 98.4
== END 2020-06-06 17:25 | disposition swing bed (61) | DRG 177 ==
LOC: ERS 02:06 → SURG A 04:30 → T4-B 17:45
PROVIDERS: ADMIT Internal Medicine; ATTEND Hospitalist
DX: U07.1 COVID-19 (principal); J96.21 Acute and chronic respiratory failure with hypoxia; J18.9 Pneumonia, unspecified organism; J44.1 Chronic obstructive pulmonary disease with (acute) exacerbation; I50.32 Chronic diastolic (congestive) heart failure; J44.0 Chronic obstructive pulmonary disease with (acute) lower respiratory infection; I25.10 Atherosclerotic heart disease of native coronary artery without angina pectoris; I11.0 Hypertensive heart disease with heart failure; T38.0X5A Adverse effect of glucocorticoids and synthetic analogues, initial encounter; D63.8 Anemia in other chronic diseases classified elsewhere; G47.33 Obstructive sleep apnea (adult) (pediatric); E11.65 Type 2 diabetes mellitus with hyperglycemia; R19.7 Diarrhea, unspecified; R53.81 Other malaise; I48.0 Paroxysmal atrial fibrillation; R13.10 Dysphagia, unspecified; Z99.81 Dependence on supplemental oxygen; Z79.82 Long term (current) use of aspirin; Z87.891 Personal history of nicotine dependence
CPT/HCPCS: 36415; 36416; 71045; 71275; 74018; 80048; 80053; 82274; 82805; 83605; 83880; 84484; 85025; 85379; 87040; 87635; 93005; 94640; 96365; 96375; J0692; J1100; J1815; J1956; J2060; J2920; J3475; J3490; J7620; Q9967; U0003; U0005

== ENCOUNTER 2020-06-28 09:22 | Emergency (ER) | payer MEDICARE ==
[2020-06-28 10:32] LABS: #Basophils 0.1 thou/uL (0.0-0.2); #Eosinphils 0.1 thou/uL (0.0-0.7); #Lymphocytes 1.2 thou/uL (1.20-3.40); #Monocytes 0.9 thou/uL (0.11-0.59); #Neutrophils 11.4 thou/uL (1.40-6.50); %Basophils 0.4 % (0.0-1.0); %Eosinophils 0.5 % (0.0-10.0); %Lymphocytes 8.6 % (21.0-51.0); %Monocytes 6.7 % (0.0-10.0); %Neutrophils 83.9 % (42.0-75.0); Hemoglobin 11.8 g/dL (14.0-18.0); Mean Corpuscular HGB CONC 33.4 g/dL (32.0-36.0); Mean Corpuscular Hemoglobin 29.9 pg (27.0-31.0); Mean Corpuscular Volume 89.6 fL (78.0-98.0); Mean Platelet Volume 9.9 fL (7.4-10.4); Platelet Count 120 thou/uL (130-400); RBC Distribution Width 19.5 % (11.5-14.5); Red Blood Cell (RBC) Count 3.95 mill/uL (4.70-6.10); White Blood Cell (WBC) Count 13.6 thou/uL (4.8-10.8)
[2020-06-28 10:59] LABS: ALT (SGPT) 13 U/L (8-55); AST (SGOT) 13 U/L (5-34); Albumin 3.6 g/dL (3.4-4.8); Alkaline Phosphatase 78 U/L (40-110); Anion Gap 12 mmol/L (10-20); BUN (Urea Nitrogen) 15 mg/dL (8.4-25.7); CK (CPK) 13 U/L (30-200); Calc. Creatinine Clearance 0 mL/min (70-130); Carbon Dioxide 21 mmol/L (23-31); Chloride 102 mmol/L (98-107); Globulin 2.1 g/dL (2.4-3.5); Glucose 136 mg/dL (83-110); Potassium 4.4 mmol/L (3.5-5.1); Protein, Total 5.7 g/dL (5.8-8.1); Sodium 131 mmol/L (136-145)
== END 2020-06-28 17:21 | disposition short-term general hospital (02) ==
LOC: ERS 09:22
DX: U07.1 COVID-19 (principal); R53.1 Weakness; R26.2 Difficulty in walking, not elsewhere classified; I48.91 Unspecified atrial fibrillation; I10 Essential (primary) hypertension; J44.9 Chronic obstructive pulmonary disease, unspecified; I21.9 Acute myocardial infarction, unspecified; Z87.891 Personal history of nicotine dependence
CPT/HCPCS: 36415; 71045; 80053; 82550; 84484; 85025; 93005

== ENCOUNTER 2020-11-19 02:22 | Inpatient (IN) | payer MEDICARE ==
[2020-11-19 03:13] LABS: Hemoglobin 14.3 g/dL (14.0-18.0); Mean Corpuscular HGB CONC 34.1 g/dL (32.0-36.0); Mean Corpuscular Hemoglobin 29.5 pg (27.0-31.0); Mean Corpuscular Volume 86.4 fL (78.0-98.0); Mean Platelet Volume 9.7 fL (7.4-10.4); Platelet Count 197 thou/uL (130-400); RBC Distribution Width 20.8 % (11.5-14.5); Red Blood Cell (RBC) Count 4.87 mill/uL (4.70-6.10)
[2020-11-19 03:31] LABS: Anisocytosis SLIGHT = 6-15 cells (100X) (0-5/hpf); Band 5 % (5-11); Lymphocytes 5 % (21-51); MDiff Complete? YES; Monocytes 8 % (0-10); Myelocyte 2 % (0-0); Neutrophil 80 % (42-75); White Blood Cell (WBC) Count 36.1 thou/uL (4.8-10.8)
[2020-11-19 03:34] LABS: ALT (SGPT) 21 U/L (8-55); AST (SGOT) 20 U/L (5-34); Alkaline Phosphatase 84 U/L (40-110); Anion Gap 14 mmol/L (10-20); BUN (Urea Nitrogen) 33 mg/dL (8.4-25.7); Bilirubin, Total 1.3 mg/dL (0.2-1.2); CK (CPK) 125 U/L (30-200); Calc. Creatinine Clearance 0 mL/min (70-130); Calcium 9.3 mg/dL (7.8-10.44); Carbon Dioxide 25 mmol/L (23-31); Chloride 91 mmol/L (98-107); Globulin 2.5 g/dL (2.4-3.5); Glucose 263 mg/dL (83-110); Potassium 5.1 mmol/L (3.5-5.1); Protein, Total 6.5 g/dL (5.8-8.1); Sodium 125 mmol/L (136-145)
[2020-11-19 04:42] LABS: Bacteria/HPF 3+ HPF (None Seen); Bilirubin Negative (Negative); Blood, Urine Negative (Negative); Clarity Turbid (Clear); Glucose, Urine (Dipstick) Normal (Negative); Ketone, Urine Negative (Negative); Leukocyte 500 Leu/uL (Negative); Nitrite Negative (Negative); Protein, Urine (Dipstick) Negative (Neg-Trace); RBC/HPF 0-3 HPF (0-3); Specific Gravity, Urine 1.014 (1.002-1.036); Squamous Epithelial 0-3 HPF (0-3); Urobilinogen Normal mg/dL (Less than 2); WBC/HPF Greater than 50 HPF (0-3); pH, Urine 5.5 (5.0-9.0)
[2020-11-19] MEDS ORDERED: cefTRIAXone\\ROCEPHIN 2 GM VIAL ONE (05:18)
[2020-11-19] MEDS ORDERED: Dextrose 5% in Water 1,000 ML IV PRN (07:40)
[2020-11-19] MEDS ORDERED: Dextrose 50% Abboject 50 ML SYRINGE SLOW IVP PRN (07:40)
[2020-11-19] MEDS ORDERED: Albuterol Sulfate 2.5 mg/3 ml Neb NEB PRN (07:41)
[2020-11-19 08:32] LABS: Lactic Acid 2.8 mmol/L (0.5-2.2)
[2020-11-19] MEDS ORDERED: Spironolactone 25 MG TAB PO SCH (09:00)
[2020-11-19 11:07] VITALS: BMI 25.4
[2020-11-19] MEDS: Albuterol 200 PUFF (6.7GM INHALER) INH SCH ×4 (11:20→20:26)
[2020-11-19] MEDS: Sodium Chloride 0.9% 1,000 ML IV SCH (12:42)
[2020-11-19] MEDS: metFORMIN 500 MG TAB PO SCH ×2 (12:43→16:57)
[2020-11-19] MEDS: HumaLOG 300 UNITS/3 ML VIAL SC PRN (12:45)
[2020-11-19] MEDS: Apixaban 5 MG TAB PO SCH ×2 (16:46→21:24)
[2020-11-19] MEDS ORDERED: Albuterol Sulfate 2.5 mg/0.5 ml Neb NEB SCH (18:30)
[2020-11-19] MEDS: Mometasone 100 MCG/Formoterol 5 MCG 120 PUFF INHALER INH SCH (19:03)
[2020-11-19] MEDS: Albuterol Sulfate 2.5 mg/3 ml Neb NEB SCH (19:16)
[2020-11-19 20:16] LABS: SARS-CoV-2 PCR by NAA Not Detected (NotDetected)
[2020-11-19] MEDS: Ondansetron ODT 4 MG TAB PO PRN (20:21)
[2020-11-19] MEDS: Atorvastatin Calcium 20 MG TAB PO SCH (20:21)
[2020-11-19] MEDS: Acetaminophen 325 MG TAB PO PRN (20:22)
[2020-11-20] MEDS ORDERED: Metoclopramide HCl 10 MG/2 ML VIAL IVP PRN (00:22)
[2020-11-20] MEDS: Sodium Chloride 0.9% 1,000 ML IV SCH ×2 (00:27→11:34)
[2020-11-20] MEDS: Ondansetron ODT 4 MG TAB PO PRN ×2 (02:18→08:26)
[2020-11-20] MEDS: Albuterol Sulfate 2.5 mg/3 ml Neb NEB SCH ×7 (02:50→22:33)
[2020-11-20] MEDS ORDERED: cloNIDine 0.1 MG TAB PO SCH (04:15)
[2020-11-20 04:32] LABS: Hemoglobin 16.1 g/dL (14.0-18.0); Mean Corpuscular HGB CONC 32.5 g/dL (32.0-36.0); Mean Corpuscular Volume 86.3 fL (78.0-98.0); Mean Platelet Volume 10.4 fL (7.4-10.4); Platelet Count 194 thou/uL (130-400); RBC Distribution Width 20.7 % (11.5-14.5); Red Blood Cell (RBC) Count 5.75 mill/uL (4.70-6.10); White Blood Cell (WBC) Count 40.4 thou/uL (4.8-10.8)
[2020-11-20 05:35] LABS: Band 1 % (5-11); Lymphocytes 4 % (21-51); MDiff Complete? YES; Metamyelocyte 1 % (0-0); Monocytes 6 % (0-10); Neutrophil 88 % (42-75)
[2020-11-20 05:43] LABS: Anion Gap 22 mmol/L (10-20); BUN (Urea Nitrogen) 22 mg/dL (8.4-25.7); Calc. Creatinine Clearance 53 mL/min (70-130); Calcium 10.2 mg/dL (7.8-10.44); Carbon Dioxide 27 mmol/L (23-31); Chloride 88 mmol/L (98-107); Glucose 274 mg/dL (83-110); Potassium 4.6 mmol/L (3.5-5.1); Sodium 132 mmol/L (136-145)
[2020-11-20] MEDS: cefTRIAXone\\ROCEPHIN 1 GM in Sodium Chloride 0.9% 100 ML IVPB SCH (05:43)
[2020-11-20] MEDS: HumaLOG 300 UNITS/3 ML VIAL SC PRN ×3 (05:51→17:17)
[2020-11-20] MEDS: Mometasone 100 MCG/Formoterol 5 MCG 120 PUFF INHALER INH SCH ×2 (08:00→18:54)
[2020-11-20] MEDS: metFORMIN 500 MG TAB PO SCH ×2 (08:22→18:01)
[2020-11-20] MEDS: glipiZIDE 5 MG TAB PO SCH (08:22)
[2020-11-20] MEDS: Apixaban 5 MG TAB PO SCH ×2 (08:22→21:08)
[2020-11-20] MEDS ORDERED: Iopamidol 370 76% 50 ML VIAL FS ONE (10:58)
[2020-11-20] MEDS ORDERED: Iopamidol 370 76% 100 ML VIAL ONE (10:58)
[2020-11-20 12:09] LABS: Hemoglobin 14.7 g/dL (14.0-18.0); Mean Corpuscular HGB CONC 31.8 g/dL (32.0-36.0); Mean Corpuscular Hemoglobin 27.8 pg (27.0-31.0); Mean Corpuscular Volume 87.5 fL (78.0-98.0); Mean Platelet Volume 10.7 fL (7.4-10.4); Platelet Count 165 thou/uL (130-400); RBC Distribution Width 20.8 % (11.5-14.5); White Blood Cell (WBC) Count 45.7 thou/uL (4.8-10.8)
[2020-11-20 12:24] LABS: Band 5 % (5-11); Hypersemented Neutrophil SLIGHT; Lymphocytes 5 % (21-51); MDiff Complete? YES; Monocytes 4 % (0-10); Myelocyte 1 % (0-0); Neutrophil 84 % (42-75); Platelet Morphology Comment Appears Adequate; Polychromasia SLIGHT = 2-3 cells (100X) (0-2/hpf); Reactive Lymphocytes 1 % (0-10)
[2020-11-20 12:34] LABS: Anion Gap 24 mmol/L (10-20); BUN (Urea Nitrogen) 25 mg/dL (8.4-25.7); CRP (Inflammatory) 2.08 mg/dL (= or < 0.5); Calc. Creatinine Clearance 63 mL/min (70-130); Calcium 8.9 mg/dL (7.8-10.44); Carbon Dioxide 18 mmol/L (23-31); Chloride 95 mmol/L (98-107); Glucose 299 mg/dL (83-110); Potassium 4.5 mmol/L (3.5-5.1); Sodium 132 mmol/L (136-145)
[2020-11-20 13:46] LABS: INR-International Normal Ratio 1.1; PTT 27.3 sec (22.9-36.1); Prothrombin Time 14.7 sec (12.0-14.7)
[2020-11-20] MEDS: Atorvastatin Calcium 20 MG TAB PO SCH (21:08)
[2020-11-21] MEDS: Albuterol Sulfate 2.5 mg/3 ml Neb NEB SCH ×6 (02:27→22:27)
[2020-11-21] MEDS: Acetaminophen 325 MG TAB PO PRN ×2 (02:59→13:15)
[2020-11-21] MEDS: HumaLOG 300 UNITS/3 ML VIAL SC PRN ×2 (06:30→11:41)
[2020-11-21] MEDS: Sodium Chloride 0.9% 1,000 ML IV SCH ×2 (06:30→17:19)
[2020-11-21] MEDS: cefTRIAXone\\ROCEPHIN 1 GM in Sodium Chloride 0.9% 100 ML IVPB SCH (06:30)
[2020-11-21] MEDS: Mometasone 100 MCG/Formoterol 5 MCG 120 PUFF INHALER INH SCH ×2 (08:00→17:59)
[2020-11-21] MEDS: metFORMIN 500 MG TAB PO SCH ×2 (08:19→17:08)
[2020-11-21] MEDS: glipiZIDE 5 MG TAB PO SCH (08:19)
[2020-11-21] MEDS: Apixaban 5 MG TAB PO SCH ×2 (08:20→21:04)
[2020-11-21 09:25] LABS: Anisocytosis SLIGHT = 6-15 cells (100X) (0-5/hpf); Band 15 % (5-11); Eosinophils 1 % (0-10); Lymphocytes 2 % (21-51); MDiff Complete? YES; Mean Corpuscular HGB CONC 33.7 g/dL (32.0-36.0); Mean Corpuscular Hemoglobin 29.3 pg (27.0-31.0); Mean Corpuscular Volume 86.8 fL (78.0-98.0); Mean Platelet Volume 9.9 fL (7.4-10.4); Monocytes 1 % (0-10); Neutrophil 81 % (42-75); Ovalocytes SLIGHT = 2-5 cells (100X) (0-1/hpf); Platelet Count 150 thou/uL (130-400); Poikilocytosis SLIGHT = 6-15 cells (100X) (0-5/hpf); RBC Distribution Width 20.4 % (11.5-14.5); White Blood Cell (WBC) Count 39.9 thou/uL (4.8-10.8)
[2020-11-21] MEDS: Ampicillin 2 GM in Sodium Chloride 0.9% 100 ML IVPB SCH ×2 (11:41→17:08)
[2020-11-21] MEDS ORDERED: AMPicillin 1 GM in Sodium Chloride 0.9% 100 ML IVPB SCH (12:00)
[2020-11-21] MEDS: Atorvastatin Calcium 20 MG TAB PO SCH (21:04)
[2020-11-22] MEDS: Ampicillin 2 GM in Sodium Chloride 0.9% 100 ML IVPB SCH ×3 (00:28→12:00)
[2020-11-22] MEDS: Albuterol Sulfate 2.5 mg/3 ml Neb NEB SCH ×6 (02:33→22:27)
[2020-11-22 04:33] LABS: Anion Gap 15 mmol/L (10-20); BUN (Urea Nitrogen) 18 mg/dL (8.4-25.7); Calc. Creatinine Clearance 83 mL/min (70-130); Calcium 8.3 mg/dL (7.8-10.44); Carbon Dioxide 21 mmol/L (23-31); Chloride 99 mmol/L (98-107); Glucose 124 mg/dL (83-110); Potassium 4.6 mmol/L (3.5-5.1); Sodium 130 mmol/L (136-145)
[2020-11-22] MEDS: metFORMIN 500 MG TAB PO SCH ×2 (08:33→17:50)
[2020-11-22] MEDS: glipiZIDE 5 MG TAB PO SCH (08:33)
[2020-11-22] MEDS: Apixaban 5 MG TAB PO SCH ×2 (08:33→20:21)
[2020-11-22] MEDS: Sodium Chloride 0.9% 1,000 ML IV SCH (08:35)
[2020-11-22] MEDS: Mometasone 100 MCG/Formoterol 5 MCG 120 PUFF INHALER INH SCH ×2 (08:59→18:53)
[2020-11-22] MEDS: Atorvastatin Calcium 20 MG TAB PO SCH (20:21)
[2020-11-22] MEDS: Linezolid 600 MG in Premix Bag 1 BAG IVPB SCH (21:19)
[2020-11-23] MEDS: Mometasone 100 MCG/Formoterol 5 MCG 120 PUFF INHALER INH SCH ×2 (07:00→18:41)
[2020-11-23] MEDS: Sodium Chloride 0.9% 1,000 ML IV SCH ×2 (07:29→12:39)
[2020-11-23] MEDS: Albuterol Sulfate 2.5 mg/3 ml Neb NEB SCH ×5 (07:29→22:13)
[2020-11-23] MEDS: glipiZIDE 5 MG TAB PO SCH (08:50)
[2020-11-23] MEDS: Apixaban 5 MG TAB PO SCH ×2 (08:50→21:07)
[2020-11-23] MEDS: metFORMIN 500 MG TAB PO SCH ×2 (08:50→16:49)
[2020-11-23] MEDS: Linezolid 600 MG in Premix Bag 1 BAG IVPB SCH ×2 (08:51→21:07)
[2020-11-23 14:57] LABS: #Basophils 0.1 thou/uL (0.0-0.2); #Eosinphils 0.1 thou/uL (0.0-0.7); #Monocytes 1.3 thou/uL (0.11-0.59); #Neutrophils 15.5 thou/uL (1.40-6.50); %Basophils 0.3 % (0.0-1.0); %Eosinophils 0.7 % (0.0-10.0); %Lymphocytes 5.5 % (21.0-51.0); %Monocytes 7.3 % (0.0-10.0); %Neutrophils 86.2 % (42.0-75.0); Hemoglobin 10.6 g/dL (14.0-18.0); Mean Corpuscular HGB CONC 33.8 g/dL (32.0-36.0); Mean Corpuscular Hemoglobin 29.5 pg (27.0-31.0); Mean Corpuscular Volume 87.4 fL (78.0-98.0); Mean Platelet Volume 9.6 fL (7.4-10.4); Platelet Count 150 thou/uL (130-400); RBC Distribution Width 20.7 % (11.5-14.5); Red Blood Cell (RBC) Count 3.58 mill/uL (4.70-6.10); White Blood Cell (WBC) Count 17.9 thou/uL (4.8-10.8)
[2020-11-23 15:18] LABS: Anion Gap 10 mmol/L (10-20); BUN (Urea Nitrogen) 13 mg/dL (8.4-25.7); Calc. Creatinine Clearance 90 mL/min (70-130); Calcium 8.3 mg/dL (7.8-10.44); Carbon Dioxide 22 mmol/L (23-31); Chloride 104 mmol/L (98-107); Glucose 87 mg/dL (83-110); Sodium 132 mmol/L (136-145)
[2020-11-23] MEDS: Atorvastatin Calcium 20 MG TAB PO SCH (21:07)
[2020-11-23] MEDS: Acetaminophen 325 MG TAB PO PRN (23:00)
[2020-11-24] MEDS: Ondansetron ODT 4 MG TAB PO PRN (02:07)
[2020-11-24] MEDS: Sodium Chloride 0.9% 1,000 ML IV SCH ×2 (02:07→10:40)
[2020-11-24] MEDS: Albuterol Sulfate 2.5 mg/3 ml Neb NEB SCH ×6 (02:10→22:59)
[2020-11-24 04:27] LABS: #Basophils 0.1 thou/uL (0.0-0.2); #Eosinphils 0.2 thou/uL (0.0-0.7); #Lymphocytes 0.8 thou/uL (1.20-3.40); #Monocytes 1.3 thou/uL (0.11-0.59); #Neutrophils 15.6 thou/uL (1.40-6.50); %Basophils 0.3 % (0.0-1.0); %Eosinophils 1.3 % (0.0-10.0); %Lymphocytes 4.5 % (21.0-51.0); %Neutrophils 86.9 % (42.0-75.0); Hemoglobin 11.1 g/dL (14.0-18.0); Mean Corpuscular HGB CONC 34.6 g/dL (32.0-36.0); Mean Corpuscular Hemoglobin 30.4 pg (27.0-31.0); Mean Corpuscular Volume 87.8 fL (78.0-98.0); Mean Platelet Volume 9.7 fL (7.4-10.4); Platelet Count 160 thou/uL (130-400); RBC Distribution Width 21.1 % (11.5-14.5); Red Blood Cell (RBC) Count 3.66 mill/uL (4.70-6.10); White Blood Cell (WBC) Count 17.9 thou/uL (4.8-10.8)
[2020-11-24] MEDS: Mometasone 100 MCG/Formoterol 5 MCG 120 PUFF INHALER INH SCH ×2 (07:43→20:11)
[2020-11-24] MEDS: metFORMIN 500 MG TAB PO SCH ×2 (07:58→18:02)
[2020-11-24] MEDS: glipiZIDE 5 MG TAB PO SCH (07:58)
[2020-11-24] MEDS: Apixaban 5 MG TAB PO SCH ×2 (07:58→20:58)
[2020-11-24] MEDS: Linezolid 600 MG in Premix Bag 1 BAG IVPB SCH ×2 (08:22→21:26)
[2020-11-24] MEDS ORDERED: Pantoprazole 40 MG VIAL IVP SCH (09:00)
[2020-11-24] MEDS: metroNIDAZOLE 500 MG in Premix Bag 1 BAG IVPB SCH ×2 (13:40→21:26)
[2020-11-24] MEDS ORDERED: Pantoprazole 80 MG in Sodium Chloride 0.9% 100 ML IVPB SCH (19:15)
[2020-11-24] MEDS: Atorvastatin Calcium 20 MG TAB PO SCH (20:58)
[2020-11-25] MEDS: Albuterol Sulfate 2.5 mg/3 ml Neb NEB SCH ×6 (02:11→22:46)
[2020-11-25] MEDS: Sodium Chloride 0.9% 1,000 ML IV SCH ×2 (04:59→21:14)
[2020-11-25] MEDS: metroNIDAZOLE 500 MG in Premix Bag 1 BAG IVPB SCH ×3 (04:59→21:14)
[2020-11-25] MEDS: Mometasone 100 MCG/Formoterol 5 MCG 120 PUFF INHALER INH SCH ×2 (07:56→19:35)
[2020-11-25] MEDS: Apixaban 5 MG TAB PO SCH ×2 (08:17→21:13)
[2020-11-25] MEDS: glipiZIDE 5 MG TAB PO SCH (08:17)
[2020-11-25] MEDS: metFORMIN 500 MG TAB PO SCH ×2 (08:18→18:19)
[2020-11-25 08:58] LABS: Anisocytosis MODERATE=16-30 cells (100X) (0-5/hpf); Elliptocytes SLIGHT = 2-5 cells (100X) (0-1/hpf); Eosinophils 2 % (0-10); Hemoglobin 10.6 g/dL (14.0-18.0); Lymphocytes 4 % (21-51); MDiff Complete? YES; Mean Corpuscular HGB CONC 33.9 g/dL (32.0-36.0); Mean Corpuscular Hemoglobin 29.8 pg (27.0-31.0); Mean Corpuscular Volume 87.9 fL (78.0-98.0); Mean Platelet Volume 9.4 fL (7.4-10.4); Monocytes 4 % (0-10); Neutrophil 90 % (42-75); Platelet Count 157 thou/uL (130-400); Platelet Morphology Comment Appears Adequate; RBC Distribution Width 20.8 % (11.5-14.5); Red Blood Cell (RBC) Count 3.57 mill/uL (4.70-6.10); White Blood Cell (WBC) Count 18.5 thou/uL (4.8-10.8)
[2020-11-25] MEDS ORDERED: Midazolam HCl 2 mg/2 ml Vial ONE (12:47)
[2020-11-25] MEDS ORDERED: Lidocaine 1% PF 5 ML VIAL ONE (13:03)
[2020-11-25] MEDS ORDERED: PROPOFOL 200 MG/20 ML VIAL ONE (13:03)
[2020-11-25] MEDS ORDERED: Promethazine HCl 25 MG/ML VIAL IM PRN (13:29)
[2020-11-25] MEDS ORDERED: Promethazine HCl 25 MG/ML VIAL IVPB PRN (13:29)
[2020-11-25] MEDS ORDERED: Ondansetron HCl/PF 4 MG/2 ML Vial IVP PRN (13:29)
[2020-11-25] MEDS: Linezolid 600 MG in Premix Bag 1 BAG IVPB SCH ×2 (14:41→21:13)
[2020-11-25] MEDS: Pantoprazole 40 MG VIAL IVP SCH (21:13)
[2020-11-25] MEDS: Atorvastatin Calcium 20 MG TAB PO SCH (21:13)
[2020-11-26] MEDS: Albuterol Sulfate 2.5 mg/3 ml Neb NEB SCH ×6 (02:08→22:20)
[2020-11-26] MEDS: metroNIDAZOLE 500 MG in Premix Bag 1 BAG IVPB SCH ×3 (05:19→22:05)
[2020-11-26] MEDS: Guaifenesin DM 100-10/5 ML UDCUP PO PRN (05:19)
[2020-11-26] MEDS: Pantoprazole 40 MG VIAL IVP SCH ×2 (08:20→22:05)
[2020-11-26] MEDS: Linezolid 600 MG in Premix Bag 1 BAG IVPB SCH ×2 (08:20→22:05)
[2020-11-26] MEDS: Apixaban 5 MG TAB PO SCH ×2 (08:21→22:06)
[2020-11-26] MEDS: glipiZIDE 5 MG TAB PO SCH (08:21)
[2020-11-26] MEDS: metFORMIN 500 MG TAB PO SCH ×2 (08:21→18:57)
[2020-11-26 08:25] LABS: #Basophils 0.1 thou/uL (0.0-0.2); #Eosinphils 0.2 thou/uL (0.0-0.7); #Lymphocytes 0.9 thou/uL (1.20-3.40); #Monocytes 1.2 thou/uL (0.11-0.59); %Basophils 0.4 % (0.0-1.0); %Eosinophils 1.4 % (0.0-10.0); %Lymphocytes 5.5 % (21.0-51.0); %Monocytes 7.2 % (0.0-10.0); %Neutrophils 85.5 % (42.0-75.0); Hemoglobin 11.1 g/dL (14.0-18.0); Mean Corpuscular HGB CONC 32.7 g/dL (32.0-36.0); Mean Corpuscular Hemoglobin 29.2 pg (27.0-31.0); Mean Corpuscular Volume 89.3 fL (78.0-98.0); Mean Platelet Volume 8.9 fL (7.4-10.4); Platelet Count 180 thou/uL (130-400); RBC Distribution Width 21.2 % (11.5-14.5); Red Blood Cell (RBC) Count 3.79 mill/uL (4.70-6.10); White Blood Cell (WBC) Count 16.4 thou/uL (4.8-10.8)
[2020-11-26] MEDS: Mometasone 100 MCG/Formoterol 5 MCG 120 PUFF INHALER INH SCH ×2 (08:36→18:36)
[2020-11-26 08:41] LABS: Anion Gap 12 mmol/L (10-20); BUN (Urea Nitrogen) 6 mg/dL (8.4-25.7); Calc. Creatinine Clearance 92 mL/min (70-130); Calcium 8.4 mg/dL (7.8-10.44); Carbon Dioxide 21 mmol/L (23-31); Chloride 105 mmol/L (98-107); Glucose 181 mg/dL (83-110); Potassium 3.6 mmol/L (3.5-5.1); Sodium 134 mmol/L (136-145)
[2020-11-26] MEDS ORDERED: Melatonin 3 MG TAB PO PRN (19:39)
[2020-11-26] MEDS: Atorvastatin Calcium 20 MG TAB PO SCH (22:06)
[2020-11-26] MEDS: Sodium Chloride 0.9% 1,000 ML IV SCH (22:16)
[2020-11-27] MEDS: Albuterol Sulfate 2.5 mg/3 ml Neb NEB SCH ×5 (02:08→18:44)
[2020-11-27 05:05] LABS: #Basophils 0.1 thou/uL (0.0-0.2); #Eosinphils 0.2 thou/uL (0.0-0.7); #Lymphocytes 1.1 thou/uL (1.20-3.40); #Monocytes 1.1 thou/uL (0.11-0.59); %Basophils 0.5 % (0.0-1.0); %Eosinophils 1.4 % (0.0-10.0); %Lymphocytes 7.7 % (21.0-51.0); %Monocytes 7.4 % (0.0-10.0); %Neutrophils 83.1 % (42.0-75.0); Hemoglobin 11.3 g/dL (14.0-18.0); Mean Corpuscular HGB CONC 33.6 g/dL (32.0-36.0); Mean Corpuscular Hemoglobin 29.8 pg (27.0-31.0); Mean Corpuscular Volume 88.6 fL (78.0-98.0); Mean Platelet Volume 9.3 fL (7.4-10.4); Platelet Count 171 thou/uL (130-400); Red Blood Cell (RBC) Count 3.79 mill/uL (4.70-6.10); White Blood Cell (WBC) Count 14.4 thou/uL (4.8-10.8)
[2020-11-27] MEDS: HumaLOG 300 UNITS/3 ML VIAL SC PRN (06:28)
[2020-11-27] MEDS: metroNIDAZOLE 500 MG in Premix Bag 1 BAG IVPB SCH ×2 (06:28→16:14)
[2020-11-27] MEDS: Mometasone 100 MCG/Formoterol 5 MCG 120 PUFF INHALER INH SCH ×2 (08:42→18:45)
[2020-11-27] MEDS: Pantoprazole 40 MG VIAL IVP SCH (08:50)
[2020-11-27] MEDS: Acetaminophen 325 MG TAB PO PRN (08:51)
[2020-11-27] MEDS: Linezolid 600 MG in Premix Bag 1 BAG IVPB SCH (08:51)
[2020-11-27] MEDS: Apixaban 5 MG TAB PO SCH (08:51)
[2020-11-27 10:21] VITALS: BP 164/79; TEMP 98.1
[2020-11-27] MEDS ORDERED: ALPRAZolam 0.5 MG TAB PO PRN (13:18)
[2020-11-27] MEDS: glipiZIDE 5 MG TAB PO SCH (16:34)
[2020-11-27] MEDS: metFORMIN 500 MG TAB PO SCH (16:34)
[2020-11-27] MEDS: Guaifenesin DM 100-10/5 ML UDCUP PO PRN (19:14)
== END 2020-11-27 21:14 | disposition home or self-care (01) | DRG 814 ==
LOC: SUATTDRO 02:22 → ERS 02:22 → ONC 07:40
PROVIDERS: ADMIT Internal Medicine; ATTEND Internal Medicine
PROC: 0DB38ZX Excision of Lower Esophagus, Via Natural or Artificial Opening Endoscopic, Diagnostic (ICD-10-PCS; principal; 2020-11-25)
DX: D72.823 Leukemoid reaction (principal); J69.0 Pneumonitis due to inhalation of food and vomit; N17.9 Acute kidney failure, unspecified; N39.0 Urinary tract infection, site not specified; J96.11 Chronic respiratory failure with hypoxia; I50.32 Chronic diastolic (congestive) heart failure; K22.10 Ulcer of esophagus without bleeding; J44.9 Chronic obstructive pulmonary disease, unspecified; F41.9 Anxiety disorder, unspecified; E11.9 Type 2 diabetes mellitus without complications; G47.33 Obstructive sleep apnea (adult) (pediatric); D64.9 Anemia, unspecified; I11.0 Hypertensive heart disease with heart failure; I25.10 Atherosclerotic heart disease of native coronary artery without angina pectoris; K21.00 Gastro-esophageal reflux disease with esophagitis, without bleeding; K44.9 Diaphragmatic hernia without obstruction or gangrene; K29.80 Duodenitis without bleeding; I48.0 Paroxysmal atrial fibrillation; I71.4 Abdominal aortic aneurysm, without rupture; R19.7 Diarrhea, unspecified; E78.5 Hyperlipidemia, unspecified; Z20.822 Contact with and (suspected) exposure to COVID-19; Z79.01 Long term (current) use of anticoagulants; I25.2 Old myocardial infarction; Z95.5 Presence of coronary angioplasty implant and graft; Z87.891 Personal history of nicotine dependence; Z79.84 Long term (current) use of oral hypoglycemic drugs
CPT/HCPCS: 36415; 36416; 70450; 70486; 71045; 71046; 71260; 72125; 74019; 74177; 80048; 80053; 81003; 81015; 82550; 83516; 83605; 84484; 85025; 85610; 85652; 85730; 86140; 87040; 87077; 87086; 87186; 87324; 87449; 88184; 88185; 88305; 93005; 93010; 96365; 96366; C9113; J0290; J0696; J1815; J2020; J2250; J2704; J2765; J3490; J7050; J7611; Q0162; Q9967; U0003; U0005

== ENCOUNTER 2021-08-28 09:53 | Day surgery (SDC) | payer MEDICARE, MEDICAID ==
[2021-08-26 11:22] VITALS: BMI 22.9
[2021-08-28] MEDS ORDERED: Ketamine 50 MG/ML (10ML VIAL) ONE (10:25)
[2021-08-28] MEDS ORDERED: PROPOFOL 200 MG/20 ML VIAL ONE (11:01)
== END 2021-08-28 13:25 | disposition home or self-care (01) ==
LOC: SDC 09:53
PROVIDERS: ATTEND Internal Medicine Gastroenterology
PROC: 0DBE8ZX Excision of Large Intestine, Via Natural or Artificial Opening Endoscopic, Diagnostic (ICD-10-PCS; principal; 2021-08-28)
PROC: 0DB58ZX Excision of Esophagus, Via Natural or Artificial Opening Endoscopic, Diagnostic (ICD-10-PCS; 2021-08-28)
DX: K63.5 Polyp of colon (principal); K57.30 Diverticulosis of large intestine without perforation or abscess without bleeding; K52.9 Noninfective gastroenteritis and colitis, unspecified; K29.50 Unspecified chronic gastritis without bleeding; K29.80 Duodenitis without bleeding; K22.70 Barrett's esophagus without dysplasia; K44.9 Diaphragmatic hernia without obstruction or gangrene; I11.0 Hypertensive heart disease with heart failure; I50.9 Heart failure, unspecified; I25.10 Atherosclerotic heart disease of native coronary artery without angina pectoris; I48.91 Unspecified atrial fibrillation; E11.9 Type 2 diabetes mellitus without complications; J44.9 Chronic obstructive pulmonary disease, unspecified; Z86.010 Personal history of colon polyps; Z79.84 Long term (current) use of oral hypoglycemic drugs; Z79.899 Other long term (current) drug therapy; Z88.6 Allergy status to analgesic agent; Z91.040 Latex allergy status; Z87.891 Personal history of nicotine dependence; Z95.5 Presence of coronary angioplasty implant and graft
CPT/HCPCS: 88305; 88312; J2704